=== PATIENT | female | born 1955 | race Caucasian/White ===

== ENCOUNTER 2019-07-28 16:15 | Emergency (ER) | payer OTHER, SELFPAY ==
--- NOTE | 2019-07-28 16:19 | ED.GENADULT ---
HPI - General Adult General Chief complaint: Urogenital-Female Stated complaint: uti Time Seen by Provider: 07/28/19 16:35 Source: patient and RN notes reviewed Mode of arrival: ambulatory Limitations: no limitations History of Present Illness HPI narrative: This patient's had frequency and burning with urination that began 2 days ago. Has not had any back pain but has had some suprapubic discomfort. She has not had any fever. There is been no blood in the urine. She has had a history of cystitis in the past, none recently. She has had no history of kidney stones or pyelonephritis. She is otherwise felt well without any ear pain, no nasal drainage, no sore throat, no fever, no cough. She has had no nausea, no vomiting, no diarrhea. She has otherwise felt well. Related Data Home Medications Medication Instructions Recorded Confirmed atorvastatin 40 mg DAILY 06/29/19 06/29/19 buspirone 13 mg TID 06/29/19 06/29/19 digoxin 125 mcg DAILY 06/29/19 06/29/19 diltiazem HCl 120 mg PO DAILY 06/29/19 06/29/19 insulin glargine [Basaglar KwikPen 80 unit SUBCUT DAILY 06/29/19 06/29/19 U-100 Insulin] insulin lispro [Admelog SoloStar 9 unit SUBCUT TID 06/29/19 06/29/19 U-100 Insulin] lisinopril 5 mg DAILY 06/29/19 06/29/19 metoprolol succinate 12.5 mg PO DAILY 06/29/19 06/29/19 quetiapine 06/29/19 warfarin 2 mg DAILY MDD 2 mg alternate 3 mg 06/29/19 06/29/19 Allergies Allergy/AdvReac Type Severity Reaction Status Date / Time Cephalosporins Allergy Unknown Unknown Verified 06/29/19 17:32 ciprofloxacin Allergy Unknown Unknown Verified 06/29/19 17:32 citalopram Allergy Unknown Unknown Verified 06/29/19 17:32 codeine Allergy Unknown Unknown Verified 06/29/19 17:32 erythromycin base Allergy Unknown Unknown Verified 06/29/19 17:32 levofloxacin Allergy Unknown Unknown Verified 06/29/19 17:32 lidocaine Allergy Unknown Unknown Verified 06/29/19 17:32 Macrolide Antibiotics Allergy Unknown Unknown Verified 06/29/19 17:32 Quinolones Allergy Unknown Unknown Verified 06/29/19 17:32 Sulfa (Sulfonamide Allergy Unknown Unknown Verified 06/29/19 17:32 Antibiotics) theophylline Allergy Unknown Unknown Verified 06/29/19 17:32 ALL ASHLEY DRUGS Allergy Mild ITCHING, Uncoded 06/29/19 17:32 BURNING, SWELLING AT SITE Review of Systems Review of Systems: Narrative: CONSTITUTIONAL: Denies fever, chills, or sweats. Noncontributory except as pertains to the past medical history and history of present illness. EYES: Denies visual changes, redness, or discharge. ENT: Denies rhinorrhea, congestion, sore throat, or otalgia. CARDIOVASCULAR: Denies chest pain, palpitations, or edema. RESPIRATORY: Denies cough or dyspnea. GASTROINTESTINAL: Denies abdominal pain, nausea, vomiting, or diarrhea. GENITOURINARY: Denies dysuria or hematuria. SKIN: Denies rash or itching. MUSCULOSKELETAL: Denies back pain, joint pain, or myalgia. NEUROLOGIC: Denies headache, numbness, or weakness. PSYCHIATRIC: Denies anxiety or depression. [facility] Family History Family History (Updated 12/26/17 @ 07:10 by DOCTOR UNKNOWN) Sibling Family history of respiratory disorder Family history of diabetes mellitus in first degree relative Family history of congestive heart failure Acute myocardial infarction Mother Family history of chronic obstructive pulmonary disease Family history of congestive heart failure Father Acute myocardial infarction Other Family history of arthritis Family history of malignant neoplasm Family history of mental disorder Hypertension Social History Social History Smoking status: Never smoker Alcohol intake: never Gender identity (if verbalized by the patient): Female Comments At time of signature, I have reviewed and agree with nursing past medical, surgical, social, and family history.Please see nursing chart for further information. There is no relevant family history pertinent to
[2019-07-28 16:22] VITALS: BP 150/82; PULSE 72; RESP 16; TEMP 36.3; O2SAT 97
== END 2019-07-28 16:47 | disposition home or self-care (01) ==
PROVIDERS: Emergency Provider Family Medicine; PCP Internal Medicine
DX: N30.00 Acute cystitis without hematuria (principal); I48.91 Unspecified atrial fibrillation; I10 Essential (primary) hypertension; J44.9 Chronic obstructive pulmonary disease, unspecified; G47.30 Sleep apnea, unspecified; M19.90 Unspecified osteoarthritis, unspecified site; E11.9 Type 2 diabetes mellitus without complications; F32.9 Major depressive disorder, single episode, unspecified; F41.9 Anxiety disorder, unspecified
CPT/HCPCS: 81003; 87077; 87086; 87088; 87186; 99213; G0463

== ENCOUNTER → 2020-03-04 10:52 | Outpatient (CLI) | payer OTHER, SELFPAY ==
--- NOTE | ~2020-03-04 | XR_ITS ---
EXAMINATION: XR thoracic spine 3V, XR lumbar spine min 4V DATE: 03/04/2020 12:11 INDICATION: Psoriatic arthritis TECHNIQUE: 1. AP, lateral and lateral swimmers views of the thoracic spine were obtained. 2. AP, lateral, left and right oblique and cone-down lateral lumbosacral views of the lumbar spine we re obtained. COMPARISON: None FINDINGS: Thoracic spine: 10 degree mid to lower thoracic dextroscoliosis. Sagittal alignment is normal. Vertebral body heights are normal. Moderate disc height loss at T7-T8, T8-T9 and T9-T10, mild disc height loss at the remai giovanny levels from T4-T5 through T12-L1. No fracture identified. Paravertebral soft tissues and visuali zed lungs are unremarkable. Cardiomediastinal silhouette is normal. Lumbar spine: 2 mm anterolisthesis L4 on L5. Schmorl's nodes with mild central endplate depression at L2 and L3. Ve rtebral body heights are otherwise normal. Moderate disc height loss at L3-L4 and L5-S1. Mild disc he ight loss at the remaining lumbar levels. No pars interarticularis defects. Multilevel moderate bilat eral lumbar facet osteoarthritis. Mild right and moderate left hip osteoarthritis. Cholecystectomy cl ips in right upper quadrant. Atherosclerotic abdominal aorta. IMPRESSION: 1. Mild thoracic dextroscoliosis. 2. Moderate thoracic and lumbar spondylosis. Reviewed, dictated and finalized at location B. IMPRESSION: 1. Mild thoracic dextroscoliosis. 2. Moderate thoracic and lumbar spondylosis.
--- NOTE | ~2020-03-04 | XR_ITS ---
EXAMINATION: XR shoulder LT min 2V DATE: 03/04/2020 12:11 INDICATION: Psoriatic arthritis. TECHNIQUE: 4 views of left shoulder were obtained. COMPARISON: None. FINDINGS: Bone alignment is normal. No fracture. There is mild osteoarthritis of glenohumeral joint a nd acromioclavicular joint. IMPRESSION: 1. Mild polyarticular osteoarthritis. Reviewed, dictated and finalized at location A.
--- NOTE | ~2020-03-04 | XR_ITS ---
EXAMINATION: XR chest 2V DATE: 03/04/2020 12:23 INDICATION: Psoriatic arthritis. TECHNIQUE: Frontal inspiratory and expiratory views of the chest were obtained. COMPARISON: Chest 2 views 03/04/2020 FINDINGS: The chest demonstrates clear lungs without pneumonia, pleural effusion, or pneumothorax. Th e heart size is normal. IMPRESSION: 1. No acute cardiopulmonary disease. Reviewed, dictated and finalized at location A.
--- NOTE | ~2020-03-04 | XR_ITS ---
EXAMINATION: XR foot LT min 3V, XR foot RT min 3V DATE: 03/04/2020 12:17 INDICATION: Psoriatic arthritis TECHNIQUE: 1. Standing dorsal plantar, two oblique and lateral views of the left foot were obtained. 2. Standing dorsal plantar, two oblique and lateral views of the right foot were obtained. COMPARISON: 12/14/2016 FINDINGS: Pes planus at the bilateral feet. Mild left hallux valgus. Postoperative change of likely prior right hallux valgus correction with screw fixation of a likely realignment osteotomy at the neck of the ri ght first metatarsal. No fracture. Polyarticular osteoarthritis, moderate to severe at the right firs t metatarsophalangeal joint and moderate at the left first metatarsophalangeal joint. Additional mild osteoarthritis at multiple additional joints in the bilateral mid and forefeet. No erosions to sugge st an inflammatory arthritis. Small amount of enthesopathic ossification at the bilateral distal Achi lles tendons. Soft tissues are unremarkable. IMPRESSION: 1. Polyarticular osteoarthritis at the bilateral mid and forefeet most prominent at the bilateral fir st metatarsophalangeal joints. 2. Bilateral pes planus. 3. Postoperative change of right hallux valgus correction. Reviewed, dictated and finalized at location B. IMPRESSION: 1. Polyarticular osteoarthritis at the bilateral mid and forefeet most prominen t at the bilateral first metatarsophalangeal joints. 2. Bilateral pes planus. 3. Postoperative change of right hallux valgus correction.
--- NOTE | ~2020-03-04 | XR_ITS ---
EXAMINATION: XR sacroiliac joints min 3V DATE: 03/04/2020 12:10 INDICATION: Psoriatic arthritis TECHNIQUE: AP and left and right oblique views of the bilateral sacral iliac joints were obtained. COMPARISON: None. FINDINGS: Bone alignment is normal. No fracture. Bilateral sacral iliac joint spaces are normal and symmetric. No erosions or subarticular sclerosis to suggest an inflammatory sacroiliitis. Moderate lower lumbar spondylosis. Bilateral hip osteoarthritis, mild on the right and moderate on the left. IMPRESSION: 1. Normal bilateral sacroiliac joints. 2. Moderate lumbar spondylosis. 3. Mild right and moderate left hip osteoarthritis. Reviewed, dictated and finalized at location B.
--- NOTE | ~2020-03-04 | XR_ITS ---
EXAMINATION: XR knee RT min 4V DATE: 03/04/2020 12:11 INDICATION: Psoriatic arthritis. TECHNIQUE: 4 views of right knee were obtained. COMPARISON: None. FINDINGS: Bone alignment is normal. No fracture. There is mild tricompartmental osteoarthritis. No kn ee joint effusion. IMPRESSION: 1. Mild right knee osteoarthritis. Reviewed, dictated and finalized at location A.
--- NOTE | ~2020-03-04 | XR_ITS ---
EXAMINATION: XR knee LT min 4V DATE: 03/04/2020 12:11 INDICATION: Psoriatic arthritis. TECHNIQUE: 4 views of left knee were obtained. COMPARISON: None. FINDINGS: Bone alignment is normal. No fracture. There is mild tricompartmental osteoarthritis. No kn ee joint effusion. IMPRESSION: 1. Mild left knee osteoarthritis. Reviewed, dictated and finalized at location A.
--- NOTE | ~2020-03-04 | XR_ITS ---
EXAMINATION: XR shoulder RT min 2V DATE: 03/04/2020 12:11 INDICATION: Psoriatic arthritis. TECHNIQUE: 4 views of right shoulder were obtained. COMPARISON: None. FINDINGS: Bone alignment is normal. No fracture. There is mild osteoarthritis of glenohumeral joint a nd moderate osteoarthritis of acromioclavicular joint. There is calcific tendinitis of the rotator cu ff. IMPRESSION: 1. Polyarticular osteoarthritis. 2. Calcific tendinitis of the rotator cuff. Reviewed, dictated and finalized at location A.
--- NOTE | ~2020-03-04 | XR_ITS ---
EXAMINATION: XR hand LT min 3V, XR hand RT min 3V DATE: 03/04/2020 12:17 INDICATION: Psoriatic arthritis TECHNIQUE: 1. Posteroanterior, oblique and lateral views of the left hand were obtained. 2. Posteroanterior, oblique and lateral views of the right hand were obtained. COMPARISON: Left hand radiographs dated 12/14/2016 FINDINGS: Normal alignment at the bilateral hands. No fracture. Mild osteoarthritis at the right first interpha langeal joint. Contrast by mild nonuniform joint space narrowing and small marginal osteophytes. Mini mal osteoarthritis with tiny marginal osteophytes and relatively preserved joint space at the left fi rst interphalangeal and multiple bilateral distal interphalangeal joints. No erosions to suggest an i nflammatory arthritis. IMPRESSION: 1. Relatively symmetric minimal to mild polyarticular osteoarthritis at the first interphalangeal and several distal interphalangeal joints. Reviewed, dictated and finalized at location B. IMPRESSION: 1. Relatively symmetric minimal to mild polyarticular osteoarthritis at the fir st interphalangeal and several distal interphalangeal joints.
== END ==
PROVIDERS: PCP Internal Medicine
DX: L40.50 Arthropathic psoriasis, unspecified (principal); M41.84 Other forms of scoliosis, thoracic region; M47.814 Spondylosis without myelopathy or radiculopathy, thoracic region; M47.816 Spondylosis without myelopathy or radiculopathy, lumbar region; M65.811 Other synovitis and tenosynovitis, right shoulder; M21.42 Flat foot [pes planus] (acquired), left foot; M21.41 Flat foot [pes planus] (acquired), right foot; Z98.890 Other specified postprocedural states; M89.49 Other hypertrophic osteoarthropathy, multiple sites
CPT/HCPCS: 71046; 72072; 72110; 72202; 73030; 73130; 73564; 73630

== ENCOUNTER → 2020-07-14 11:08 | Outpatient (CLI) | payer OTHER, SELFPAY ==
--- NOTE | ~2020-07-14 | XR_ITS ---
EXAMINATION: XR chest 2V DATE: 07/14/2020 11:26 INDICATION: Shortness of breath TECHNIQUE: PA and lateral views of the chest are obtained. COMPARISON: 03/04/2020 FINDINGS: The lungs are free of acute opacities. There is no pleural effusion or pneumothorax. The ca rdiomediastinal silhouette is normal. There is mild thoracic spondylosis. IMPRESSION: 1. No acute cardiopulmonary abnormality. Reviewed, dictated and finalized at location A. ICE UPHOLSTERER
== END ==
PROVIDERS: PCP Internal Medicine Cardiovascular Disease; Visit Provider Internal Medicine Cardiovascular Disease
DX: R06.09 Other forms of dyspnea (principal)
CPT/HCPCS: 71046

== ENCOUNTER 2020-11-23 09:34 | Outpatient (CLI) | payer OTHER, SELFPAY ==
--- NOTE | ~2020-11-23 | CT_ITS ---
EXAMINATION: CT diagnostic chest w con DATE: 11/23/2020 10:27 INDICATION: Shortness of breath, history of COVID pneumonia TECHNIQUE: Transaxial computed tomographic images of the chest were obtained after the administration of 75 cc of Omnipaque 350 intravenous contrast. The dose-length product (DLP) was 604.14 mGy-cm. Ite rative reconstruction was used. COMPARISON: 06/26/2018 FINDINGS: There is mild elevation of the right hemidiaphragm. The lungs are free of focal airspace op acities. There is mild dependent atelectasis. No pleural effusion or pneumothorax is identified. No p athologically enlarged thoracic lymph nodes are identified. The heart size is normal. Again noted is ectasia of the ascending aorta which measures up to 1.1 cm. Calcified pulmonary nodules and calcified left hilar lymph nodes are consistent with old granulomatous disease. The gallbladder is surgically absent. There is moderate thoracic spondylosis. IMPRESSION: 1. Mild atelectasis. Reviewed, dictated and finalized at location A. IMPRESSION: 1. Mild atelectasis.
[2020-11-23 10:21] LABS: Estimated Glomerular Filt Rate 56
== END 2020-11-23 09:35 | disposition home or self-care (01) ==
PROVIDERS: PCP Internal Medicine; Visit Provider Internal Medicine
DX: U07.1 COVID-19 (principal); I71.2 Thoracic aortic aneurysm, without rupture
CPT/HCPCS: 71260; Q9967

== ENCOUNTER 2021-02-16 13:30 | Outpatient (RCR) | payer OTHER, SELFPAY ==
--- NOTE | 2021-01-13 14:38 | PTOPEVAL ---
PHYSICAL THERAPY EVALUATION Thank you for referring Carol Gee to [facility].? Carol was evaluated for the dx of chronic low back and multiple joint pain. The patient is scheduled to be seen for therapy? 1 x/week for 4 weeks. Please review, sign, date and return this plan of care KYAA. I agree with and certify that the following plan of care is medically necessary. Referring Physician Date Referring Provider: Dr. Stephy Fitzpatrick *PT Outpatient Evaluation Start: 01/13/21 13:09 Freq: Status: Active Protocol: Document 01/13/21 13:10 MLV (Rec: 01/13/21 14:19 [facility] [id number]) Therapy Assessment Status Assessment Status Assessment Status Evaluation Evaluation Information Problem Diagnosis chronic low back pain with angelica . hip and shoulder pain Onset increased pain in last 2 years Cause no injury Additional Evaluation Detail The patient reports she has a long hx of pain all over and could manage with ibuprofen. Pt then developed a-fib and is unable to take ibuprofen now. The patient cannot get relief with tylenol. The patient reports needing to exercise but is fearful that she will cause a heart failure . The patient has not done therapy before, had only tried chiropractor w/o success for relief. The patient sleeps 14- 15 hrs a day due to fatigue. The patient wants to get some exercises so to move better and feel more alert. Subjective Information The patient has a hospital bed Query Text:As Reported By Patient/ and a motorized scooter for Family when she shops/outings. Diagnostic Tests MRI For This Problem Yes: spondylosis, thoracic dextroscoliosis Prior Level of Function Activity Level (Last 3 Months) Occupation on disability since 2003 Hand Dominance Right Activity of Daily Living Ability Independent Indoor/Home Mobility Independent Community Mobility Independent Stairs Ability Independent Functional Cognition (Planning, Shopping Independent , Taking Medications) Cooking No Cleaning No Laundry Yes Shopping Yes Driving
--- NOTE | 2021-02-03 13:53 | PCPTNOTE ---
Patient called & cancelled scheduled appointment this date due to being to sore.
--- NOTE | 2021-02-16 14:16 | PTOPEVAL ---
PHYSICAL THERAPY DISCHARGE Thank you for referring Carol Gee to [facility].? The patient has completed 3 visits for the dx of low back, angelica hips and shoulder pain. Goals not being met with limited compliance for attendance. DC PT. Please review, sign, date and return this plan of care KAYA. I agree with and certify the following plan of care. Referring Physician Date Referring Provider: Dr. Radha Fitzpatrick *PT Outpatient Evaluation Start: 01/13/21 13:09 Freq: Status: Active Protocol: Document 02/16/21 13:34 MLV (Rec: 02/16/21 14:06 MLV [id number]) Therapy Assessment Status Assessment Status Assessment Status Discharge Evaluation Information Problem Diagnosis chronic low back pain with angelica. hip and shoulder pain Onset increased pain in last 2 years Cause no injury Additional Evaluation Detail The patient reports her pain remains high and was in severe pain after her last visit with therapy. The patient reports doing ok when she completed the exercises but was in severe pain for days after. The patient believes there is nothing that will help her pain, and feels her severity of her psoriasis is the reason for this. Pain Assessment Timing of Pain Assessment Timing of Pain Assessment Assessment Pain Scale Pain Scale Used Numeric (1 - 10) Self Report Pain Assessment Generalized Reported Pain Level 6 Pain Description Aching,Soreness,Tightness Pain Frequency Chronic,Continuous Back Reported Pain Level 7 Pain Frequency Chronic,Continuous Pain Aggravating Factors Weight Bearing/Standing Other Pain Aggravating Factors doing dishes, vacuuming, lifting Pain Score Pain Score 6,7: Self Report Interventions Used Interventions Used By Clinicians Education,Exercise Pain Relief Interventions Used By Inactivity/Rest,Lying Supine Patient Cervical and Lumbar ROM Cervical ROM Cervical Flexion (0-60) 62 Query Text:Active in Degrees Cervical Extension (0-70) 20 Query Text:Active in Degrees Cervical Lateral Flexion Right (0-50) 35 Query Text:Active in Degrees Cervical Lateral Flexion Left (0-50) 35 Query Text:Active in Degrees Cervical Rotation Right (0-90) 51 Query Text:Active in Degrees Cervical Rotation Left (0-90)
== END 2021-03-31 08:54 | disposition home or self-care (01) ==
LOC: ANHPT 13:30
PROVIDERS: PCP Internal Medicine
DX: M54.5 Low back pain (principal)
CPT/HCPCS: 97110; 97162

== ENCOUNTER 2021-05-22 16:36 | Emergency (ER) | payer OTHER, SELFPAY ==
[2021-05-22 16:45] VITALS: BP 153/86; PULSE 78; RESP 18; TEMP 36.5; O2SAT 92
--- NOTE | 2021-05-22 17:03 | ED.BACK ---
HPI - Back Pain/Injury General Chief Complaint: Back Pain/Injury Stated Complaint: Back Pain Time Seen by Provider: 05/22/21 17:03 Source: patient and RN notes reviewed Mode of arrival: ambulatory Limitations: no limitations History of Present Illness HPI Narrative: 65-year-old female presents to the [facility] with complaints of right lower back pain. Had been going on for a couple of weeks. Got worse couple days ago. States she has been taking Tylenol and tramadol with no relief. Related Data Home Medications Medication Instructions Recorded Confirmed diltiazem HCl 120 mg PO DAILY 06/29/19 05/22/21 lisinopril 5 mg PO DAILY 06/29/19 05/22/21 warfarin 2 mg DAILY MDD 2 mg alternate 3 mg 06/29/19 05/22/21 metoprolol succinate 25 mg 25 mg PO DAILY tablet 01/25/21 05/22/21 tablet,extended release 24 hr secukinumab 150 mg/mL subcutaneous 150 mg SUBCUT MONTHLY ml 01/25/21 05/22/21 pen injector quetiapine 100 mg tablet 150 mg PO DAILY tablet 04/17/21 05/22/21 levothyroxine [Euthyrox] 150 mcg PO DAILY 05/22/21 05/22/21 Allergies Allergy/AdvReac Type Severity Reaction Status Date / Time Cephalosporins Allergy Unknown Hives Verified 05/22/21 16:53 ciprofloxacin Allergy Unknown Hives Verified 05/22/21 16:53 citalopram Allergy Unknown Hives Verified 05/22/21 16:53 codeine Allergy Unknown Hives Verified 05/22/21 16:53 erythromycin base Allergy Unknown Hives Verified 05/22/21 16:53 levofloxacin Allergy Unknown Hives Verified 05/22/21 16:53 lidocaine Allergy Unknown Hives Verified 05/22/21 16:53 Macrolide Antibiotics Allergy Unknown Hives Verified 05/22/21 16:53 Quinolones Allergy Unknown Hives Verified 05/22/21 16:53 Sulfa (Sulfonamide Allergy Unknown Hives Verified 05/22/21 16:53 Antibiotics) theophylline Allergy Unknown Hives Verified 05/22/21 16:53 ALL ASHLEY DRUGS Allergy Mild ITCHING, Uncoded 05/22/21 16:53 BURNING, SWELLING AT SITE Review of Systems Review of Systems: All systems reviewed & are unremarkable except as noted in HPI and below Constitutional: Constitutional: Reports no additional constitutional complaints, Denies chills and Denies fever(s) Eyes: Eyes: Reports no additional eye complaints ENT: Reports system reviewed and no additional complaints, except as documented Cardiovascular: Cardiovascular: Reports no additional cardiovascular complaints Respiratory: Respiratory: Reports no additional respiratory complaints Gastrointestinal: Gastrointestinal: Reports no additional gastrointestinal complaints, Denies abdominal pain, Denies nausea and Denies vomiting Genitourinary: Genitourinary: Reports no additional female genitourinary complaints and Denies urinary incontinence Musculoskeletal: Musculoskeletal: Reports as per HPI and Reports back pain (Right lower) Integumentary/Breasts: Skin/Breast: Reports system reviewed and no additional complaints, except as docu Neurologic: Reports system reviewed and no additional complaints, except as documented Psychiatric: Psychiatric: Reports no additional psychiatric complaints Allergic/Immunologic: Allergic/Immunologic: Reports no additional allergic/immunologic complaints PMFSH Past Medical History Medical History Acute conjunctivitis of left eye COVID-19 Essential (primary) hypertension Restrictive ventilatory defect Type 2 diabetes mellitus without complication, without long-term current use of insulin Family History Family History Sibling Family history of respiratory disorder Family history of diabetes mellitus in first degree relative Family history of congestive heart failure Acute myocardial infarction Mother Family history of chronic obstructive pulmonary disease Family history of congestive heart failure Father Acute myocardial infarction Other Family history of arthritis Family hist
== END 2021-05-22 17:17 | disposition home or self-care (01) ==
PROVIDERS: Emergency Provider Nurse Practitioner; PCP Internal Medicine
DX: M54.41 Lumbago with sciatica, right side (principal); I10 Essential (primary) hypertension; E11.9 Type 2 diabetes mellitus without complications; Z79.4 Long term (current) use of insulin; Z86.16 Personal history of COVID-19; Z79.01 Long term (current) use of anticoagulants
CPT/HCPCS: 99213; G0463

== ENCOUNTER 2021-06-21 14:30 | Outpatient (CLI) | payer OTHER, SELFPAY ==
--- NOTE | ~2021-06-21 | DEXA_ITS ---
Bone Density Report Name: OBDULIA RIVAS Age: 65 Sex: Female Ethnicity: White Date of : 1955 Indication: postmenopausal; hysterectomy; Referring Provider: KULWINDER BENSON Study: Bone densitometry was performed. Exam Date: June 21, 2021 Accession number: [id number] Bone Density: Region BMD T-score Z-score Classification AP Spine (L1, L3, L4) 1.155 0.9 2.7 Normal Femoral Neck (Left) 0.744 -0.9 0.5 Normal Total Hip (Left) 0.867 -0.6 0.6 Normal Total Hip Bilateral Avg 0.829 -0.9 0.3 Normal Femoral Neck (Right) 0.541 -2.8 -1.3 Osteoporosis Total Hip (Right) 0.790 -1.2 0.0 Osteopenia World Health Organization criteria for BMD impression classify patients as: Normal (T-score at or above -1.0), Osteopenia (T-score between -1.0 and -2.5), or Osteoporosis (T-score at or below -2.5). 10-year Fracture Risk: FRAX not reported because: Some T-score for Spine Total or Hip Total or Femoral Neck at or below -2.5 Clinical Information Provided by Patient: Has used the following medications: Vitamin D Has the following medical conditions: Hysterectomy Patient maximum height was 68 Menopause Age: 41 No regular weight bearing exercise Drinks caffeinated beverages Onset of menses at age 11 Number of children 3 Impression: The patient has osteoporosis, based on the Right Femoral Neck T-score. Discussion: INCREASED RISK OF FRACTURE. BONE DENSITY IS UNDESIRABLY LOW AT ONE OR MORE SKELETAL SITES, CONSISTENT WITH POSTMENOPAUSAL OSTEOPOROSIS. This patient's lowest T-score meets the World Health Organization's (WHO) criteria for osteoporosis at one or more sites (T-score -2.5 or below). In untreated patients, the risk of osteoporotic fracture increases approximately two-fold for each 1.0 SD decrease in T-score. Low bone density is not the only risk factor for fracture; also consider factors such as patient's age, frailty or poor health, risk of falling, risk of injury, previous osteoporotic fracture, family history of osteoporosis, cigarette smoking, low body weight, etc. Not everyone with low bone mineral density has osteoporosis; osteomalacia and other metabolic bone disorders should also be considered. Patients who have osteoporosis should be evaluated for specific diseases and conditions (secondary causes) that may cause or contribute to bone loss. The [place] [employer]ocrinologists (AACE) and National Osteoporosis Foundation (NOF) recommend pharmacologic intervention for all postmenopausal women whose T-score is in this range. The patient should follow a healthful lifestyle (good nutrition with adequate calcium and vitamin D, and appropriate weight-bearing exercise). Follow-Up: Consider a repeat BMD and Vertebral Fracture Assessment (VFA) exam in 2 years or sooner if medically necessary, to reassess this
== END 2021-06-21 14:31 | disposition home or self-care (01) ==
LOC: ANHIMG 14:31
PROVIDERS: PCP Internal Medicine; Visit Provider Nurse Practitioner
DX: Z78.0 Asymptomatic menopausal state (principal); M81.0 Age-related osteoporosis without current pathological fracture; M85.851 Other specified disorders of bone density and structure, right thigh
CPT/HCPCS: 77080

== ENCOUNTER 2021-07-10 12:28 | Outpatient (RCR) | payer OTHER, SELFPAY ==
--- NOTE | 2021-07-10 13:34 | REHOPWC ---
SEATING EVALUATION NOTIFICATION This is to notify provider that Carol Gee participated in a power mobility device evaluation today. Recommendations were made specific to patient's needs. Seating Assessment documentation has been completed for detailed information on required equipment. The mobility device provider for this case is [facility]. Please note that no further care plan will be developed on this account. Thank you for [facility] this [facility]. Please review, sign, date and return this discharge summary KAYA. I have been updated about the patient's current status and I agree with discharge from the above service at this time. Referring Physician Date
== END 2021-07-11 11:30 | disposition home or self-care (01) ==
LOC: ANHPT 12:28
PROVIDERS: PCP Internal Medicine; Visit Provider Nurse Practitioner
DX: I48.20 Chronic atrial fibrillation, unspecified (principal); E11.9 Type 2 diabetes mellitus without complications; M48.061 Spinal stenosis, lumbar region without neurogenic claudication; R26.9 Unspecified abnormalities of gait and mobility; L40.50 Arthropathic psoriasis, unspecified; Z79.4 Long term (current) use of insulin; Z78.9 Other specified health status; Z74.09 Other reduced mobility
CPT/HCPCS: 97163

== ENCOUNTER 2021-07-13 14:20 | Outpatient (CLI) | payer OTHER, SELFPAY ==
[2021-07-13 14:30] VITALS: PULSE 88; O2SAT 92
[2021-07-13 14:33] VITALS: PULSE 130; O2SAT 87
[2021-07-13 14:34] VITALS: O2SAT 87
[2021-07-13 14:35] VITALS: PULSE 126; O2SAT 90
[2021-07-13 14:45] VITALS: PULSE 92; O2SAT 92
--- NOTE | 2021-07-13 14:57 | HOMEO2EVAL ---
Evaluation was performed at [facility] Home Oxygen Evaluation RC: Home Oxygen (O2) Evaluation Start: 07/13/21 14:55 Freq: Status: Active Protocol: RPE Activity Type Activity Date Activity User E-Sign Co-Sign Detail Recorded Client Recorded Date Recorded By Document 07/13/21 14:30 BRUCE [email or web address] 07/13/21 14:57 BRUCE Document 07/13/21 14:33 BRUCE [email or web address] 07/13/21 14:57 BRUCE Document 07/13/21 14:34 BRUCE [email or web address] 07/13/21 14:57 BRUCE Document 07/13/21 14:35 BRUCE [email or web address] 07/13/21 14:57 BRUCE Document 07/13/21 14:45 BRUCE [email or web address] 07/13/21 14:57 BRUCE 07/13/21 07/13/21 07/13/21 14:30 14:33 14:34 Home O2 Evaluation Test Phase Resting Exercise Exercise Oxygen Delivery Room Air Room Air Nasal Cannula Oxygen Flow Rate (L/min) 1 Pulse Oximetry (90-100 %) 92 87 L 87 L Pulse Rate (60-100 beats/min) 88 130 H Home Oxygen Evaluation Comments Treatment Charges O2 Evaluation - Outpatient 07/13/21 07/13/21 14:35 14:45 Home O2 Evaluation Test Phase Exercise Resting Oxygen Delivery Nasal Cannula Room Air Oxygen Flow Rate (L/min) 2 Pulse Oximetry (90-100 %) 90 92 Pulse Rate (60-100 beats/min) 126 H 92 Home Oxygen Evaluation Comments Pt requires 2 L with activity Treatment Charges
--- NOTE | 2021-07-13 14:58 | PCRCNOTE ---
Home O2 eval completed in place of 6 minute walk study. Pt requires 2 L with exertion/activity. Faxed to Office staff
--- NOTE | 2021-07-13 14:59 | PCRCNOTE ---
Pt also declined ABG.
--- NOTE | 2021-07-13 17:08 | WPDPFTINT ---
PFT Procedure Performed PFT Procedure Performed Spirometry with Pre/Post Bronchodilator Plethysmography (Lung Vol) Diffusing Cap (DLCO) Flow Vol Loop PFT Interpretation This is a pulmonary function test with pre and post-bronchodilator spirometry, plethysmography and diffusing capacity. The test was performed and results interpreted in accordance with the 2019 and 2005 ATS/ERS Task Force guidelines respectively using the Global Lung Function Initiative-2012 reference equations. Patient demonstrated good effort and cooperation. Reproducibility criteria were met. The quality of the pre bronchodilator spirometry maneuver was Grade A and post bronchodilator spirometry maneuver was Grade A. Findings: Spirometry: The contour the expiratory flow tracing resembles that of a witch's hat. The contour the inspiratory flow tracing is normal. The pre bronchodilator FVC is 1.57 L, 45% predicted. The pre bronchodilator FEV1 is 1.42 L, 52% predicted. The pre bronchodilator FEV1: FVC ratio is 91%. The post bronchodilator FVC is 1.85 L, representing an 18% increase. The post bronchodilator FEV1 is 1.59 L, representing a 12% increase. Plethysmography: The total lung capacity is 3.51 L, 62% predicted. Functional residual capacity is 1.42 L, 44% predicted. The residual volume is 1.39 L, 61% predicted. Diffusion capacity: The absolute diffusion capacity is 16.5, 72% predicted. The diffusing capacity corrected for alveolar volume is 5.03, 120% predicted. Impression: There is a moderately severe restrictive ventilatory abnormality. The spirometry is normal without evidence of an obstructive abnormality. There is significant improvement after inhaling a single dose of albuterol. The diffusing capacity is normal. There are no prior studies for comparison
== END 2021-07-13 14:21 | disposition home or self-care (01) ==
LOC: ANHPFT 14:23
PROVIDERS: PCP Internal Medicine; Visit Provider Physician Assistant
DX: R06.02 Shortness of breath (principal); R94.2 Abnormal results of pulmonary function studies
CPT/HCPCS: 94060; 94618; 94726; 94729

== ENCOUNTER 2021-07-31 14:49 | Outpatient (CLI) | payer OTHER, SELFPAY ==
--- NOTE | ~2021-07-31 | MM_ITS ---
EXAMINATION: MM screening [facility] BI w julian HISTORY: Screening TECHNIQUE: Craniocaudal and mediolateral oblique 3-D tomosynthesis images were obtained and synthetic 2-D images were generated. CAD analysis was submitted and interpreted. COMPARISON: Comparison to multiple prior studies sequentially, with oldest reviewed study dated 08/2013. BREAST PARENCHYMAL COMPOSITION: There are scattered areas of fibroglandular density. FINDINGS: There are benign bilateral breast calcifications. There is no evidence of suspicious mass, calcification, or architectural distortion to suggest malignancy in either breast. There has been no suspicious interval change. IMPRESSION: 1. No mammographic evidence of malignancy. 2. Recommend routine screening mammography in one year. BI-RADS Category 2: Benign finding(s). Reviewed, dictated and finalized at location A. 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
== END 2021-07-31 14:50 | disposition home or self-care (01) ==
LOC: ANHIMG 14:50
PROVIDERS: PCP Internal Medicine; Visit Provider Nurse Practitioner
DX: Z12.31 Encounter for screening mammogram for malignant neoplasm of breast (principal)
CPT/HCPCS: 77063; 77067

== ENCOUNTER 2021-12-06 14:37 | Outpatient (CLI) | payer MEDICARE, MEDICAID, SELFPAY ==
--- NOTE | ~2021-12-06 | CT_ITS ---
EXAMINATION: CTA chest DATE: 12/07/2021 08:06 CDT INDICATION: Shortness of breath. COPD. TECHNIQUE: Computed tomographic angiography (CTA) of the chest was performed with 100 mL Omnipaque-30 0 intravenous contrast. The dose-length product was 961.21 mGy-cm. Maximum intensity projection 3D-re constructions of the aorta and other arteries were constructed by the technologist on a separate work station. Automated exposure control and iterative reconstruction technique were employed. COMPARISON: CT dated 11/23/2020. FINDINGS: There is mediastinal and hilar lymphadenopathy. For instance a low right paratracheal lymph node measures 1.7 cm. Heart size is normal. There is mild atherosclerosis of the aorta and coronary arteries. There is mild aneurysmal dilation of the ascending thoracic aorta measuring 4 cm. No eviden ce for dissection. Evaluation of the pulmonary arteries limited due to contrast bolus timing. The upp er abdomen is unremarkable. There is diffuse groundglass opacification with peripheral interlobular s eptal thickening. There is dependent atelectasis. No endobronchial lesions. Shallow inspiration with crowding of the pulmonary vasculature. There are calcified pulmonary nodules and hilar lymph nodes, c onsistent with chronic granulomatous disease. Moderate thoracic spondylosis. IMPRESSION: 1. Stable fusiform ascending thoracic aortic aneurysm measuring 4 cm. 2: Mediastinal and hilar lymphadenopathy, most likely reactive, although metastatic disease and lymph rosibel should be considered. 3: Diffuse groundglass opacification which may reflect atelectasis, pneumonia and/or edema. Reviewed, dictated and finalized at location B. IMPRESSION: 1. Stable fusiform ascending thoracic aortic aneurysm measuring 4 cm. 2: Mediastinal and hilar lymphadenopathy, most likely reactive, although metast atic disease and lymphoma should be considered. 3: Diffuse groundglass opacification which may reflect atelectasis, pneumonia a nd/or edema.
[2021-12-06 15:26] LABS: Estimated Glomerular Filt Rate 56
== END 2021-12-06 14:38 | disposition home or self-care (01) ==
PROVIDERS: Visit Provider Internal Medicine Cardiovascular Disease
DX: I71.9 Aortic aneurysm of unspecified site, without rupture (principal); M47.814 Spondylosis without myelopathy or radiculopathy, thoracic region
CPT/HCPCS: 71275; Q9967

== ENCOUNTER 2022-02-12 12:41 | Outpatient (CLI) | payer MEDICARE, MEDICAID, SELFPAY ==
--- NOTE | ~2022-02-12 | XR_ITS ---
XR knee LT 3V 02/12/2022 14:19 INDICATION: Left knee pain for one month PROCEDURE: 3 views left knee COMPARISON: No prior studies for comparison. FINDINGS: Fracture, dislocation or subluxation is not identified. No joint effusion. The soft tissues appear within normal limits. No foreign bodies are identified. IMPRESSION: 1: No significant bone or joint abnormality. Reviewed, dictated and finalized at location B.
== END 2022-02-12 12:42 | disposition home or self-care (01) ==
LOC: ANHIMG 12:44
PROVIDERS: PCP Internal Medicine; Visit Provider Internal Medicine
DX: M25.569 Pain in unspecified knee (principal)
CPT/HCPCS: 73562

== ENCOUNTER 2022-02-12 12:41 | Outpatient (CLI) | payer MEDICARE, MEDICAID, SELFPAY ==
[2022-02-12 13:00] VITALS: PULSE 79; O2SAT 86
[2022-02-12 13:05] VITALS: PULSE 82; O2SAT 87
[2022-02-12 13:10] VITALS: PULSE 93; O2SAT 90
[2022-02-12 13:15] VITALS: PULSE 102; O2SAT 87
[2022-02-12 13:20] VITALS: PULSE 106; O2SAT 90
[2022-02-12 13:35] VITALS: PULSE 99; O2SAT 90
--- NOTE | 2022-02-12 13:56 | HOMEO2EVAL ---
Evaluation was performed at [facility] Home Oxygen Evaluation RC: Home Oxygen (O2) Evaluation Start: 02/12/22 13:47 Freq: Status: Active Protocol: RPE Activity Type Activity Date Activity User E-sign Co-sign Detail Recorded Client Recorded Date Recorded By Document 02/12/22 13:00 PKH [email or web address] 02/12/22 13:54 PKH Document 02/12/22 13:05 PKH [email or web address] 02/12/22 13:54 PKH Document 02/12/22 13:10 PK RT_003 02/12/22 13:54 PK Document 02/12/22 13:15 PK [email or web address]_003 02/12/22 13:54 PK Document 02/12/22 13:20 PK [email or web address]_003 02/12/22 13:54 PK Document 02/12/22 13:35 PK RT_003 02/12/22 13:54 PKH 02/12/22 02/12/22 02/12/22 13:00 13:05 13:10 Home O2 Evaluation Test Phase Resting Resting Resting Oxygen Delivery Room Air Nasal Cannula Nasal Cannula Oxygen Flow Rate (L/min) 1 2 Pulse Oximetry (90-100 %) 86 L 87 L 90 Pulse Rate (60-100 beats/min) 79 82 93 Home Oxygen Evaluation Comments Treatment Charges O2 Evaluation - Outpatient 02/12/22 02/12/22 02/12/22 13:15 13:20 13:35 Home O2 Evaluation Test Phase Exercise Exercise Resting Oxygen Delivery Nasal Cannula Nasal Cannula Nasal Cannula Oxygen Flow Rate (L/min) 2 3 2 Pulse Oximetry (90-100 %) 87 L 90 90 Pulse Rate (60-100 beats/min) 102 H 106 H 99 Home Oxygen Evaluation Comments PATIENT REQUIRES 2LPM WITH REST AND 3LPM WITH ACTIVITY Treatment Charges
== END 2022-02-12 12:42 | disposition home or self-care (01) ==
PROVIDERS: PCP Internal Medicine; Visit Provider Physician Assistant
DX: R09.02 Hypoxemia (principal)
CPT/HCPCS: 73562; 94618

== ENCOUNTER 2023-03-29 12:31 | Outpatient (CLI) | payer MEDICARE, MEDICAID, SELFPAY ==
[2023-03-29 13:00] VITALS: PULSE 89; O2SAT 94
[2023-03-29 13:02] VITALS: PULSE 110; O2SAT 87
[2023-03-29 13:03] VITALS: O2SAT 93
[2023-03-29 13:15] VITALS: PULSE 93; O2SAT 93
--- NOTE | 2023-03-29 13:22 | HOMEO2EVAL ---
Evaluation was performed at [facility] Home Oxygen Evaluation RC: Home Oxygen (O2) Evaluation Start: 03/29/23 13:20 Freq: Status: Active Protocol: RPE Activity Type Activity Date Activity User E-sign Co-sign Detail Recorded Client Recorded Date Recorded By Document 03/29/23 13:00 BRUCE [email or web address] 03/29/23 13:22 BRUCE Document 03/29/23 13:02 BRUCE [email or web address] 03/29/23 13:22 [facility] Document 03/29/23 13:03 [facility] [email or web address] 03/29/23 13:22 [facility] Document 03/29/23 13:15 [facility] [email or web address] 03/29/23 13:22 [facility] 03/29/23 03/29/23 03/29/23 13:00 13:02 13:03 Home O2 Evaluation [Oxygen] -Test Phase Resting Exercise Exercise -Oxygen Delivery Room Air Room Air Nasal Cannula -Oxygen Flow Rate (L/min) 2 [Pulse Oximetry] -Pulse Oximetry (90-100 %) 94 87 L 93 [Pulse Rate] -Pulse Rate (60-100 beats/min) 89 110 H [Exercise] -Ambulation Distance (feet) 350 -Ambulation Distance (meters) 106.67 [Charges] -Treatment Charges O2 Evaluation - Outpatient 03/29/23 13:15 Home O2 Evaluation [Oxygen] -Test Phase Resting -Oxygen Delivery Room Air -Oxygen Flow Rate (L/min) [Pulse Oximetry] -Pulse Oximetry (90-100 %) 93 [Pulse Rate] -Pulse Rate (60-100 beats/min) 93 [Exercise] -Ambulation Distance (feet) -Ambulation Distance (meters) [Charges] -Treatment Charges
--- NOTE | 2023-03-29 13:22 | PCRCNOTE ---
home o2 eval faxed to office staff, no changes from current settings. 2 l with activity and nocturnally
== END 2023-03-29 12:32 | disposition home or self-care (01) ==
LOC: ANHPFT 12:32
PROVIDERS: PCP Nurse Practitioner Family; Visit Provider Physician Assistant
DX: R09.02 Hypoxemia (principal)
CPT/HCPCS: 94618

== ENCOUNTER 2023-05-18 12:03 | Inpatient (IN) | payer MEDICARE, MEDICAID, SELFPAY ==
--- NOTE | ~2023-05-18 | CT_ITS ---
EXAMINATION: CT abdomen pelvis w con DATE: 05/18/2023 14:08 INDICATION: lower abd pain TECHNIQUE: Computed tomography (CT) of the abdomen and pelvis was performed with 100 mL Omnipaque-350 intravenous contrast. Automated exposure control and iterative reconstruction technique were employe d. The dose-length product was 1458.94 mGy-cm. COMPARISON: None. FINDINGS: Lower thorax: Senescent change. Bibasilar atelectasis. Coronary artery calcification. Liver: Normal. Biliary/Gallbladder: Gallbladder is absent. No bile duct dilation. Pancreas: No mass or duct dilation. Spleen: Normal. 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 Kidneys: Bilateral cortical thinning. Symmetric parenchymal enhancement. Nonobstructing left inferior pole calcification. Urothelial enhancement in the left collecting system. GI tract: Mild distal esophageal and gastric wall edema. The rectum is markedly dilated, up to 11.2 c m by formed stool, with mild surrounding wall thickening/inflammation. No small bowel dilation. Deanna l appendix. Mesentery/Peritoneum: No ascites, mass, or free air. Retroperitoneum: No mass. Pelvis: Marked urinary bladder wall edema. Absent uterus. Soft Tissues: Soft tissues and body wall unremarkable. Bones: No acute osseous finding. IMPRESSION: Severe cystitis with left pyelitis. Severe fecal impaction with findings that could occur with early stercoral colitis. Reviewed, dictated and finalized at location K. 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 Severe fecal impaction with findings that could occur with early stercoral coli tis.
[2023-05-18 12:04] VITALS: BP 102/70; PULSE 73; RESP 18; TEMP 36.1; O2SAT 98
--- NOTE | 2023-05-18 12:16 | ED.FEMALEGU ---
HPI - Female Genitourinary General Chief complaint: Urogenital-Female Stated complaint: UTI Time Seen by Provider: 05/18/23 12:15 Source: patient History of Present Illness HPI Narrative: Patient is 67 years old white female lives alone in from home by private car with her daughter complaining of heavy pressure feeling in the lower abdomen and vaginal area started 2 weeks ago, patient has been on 2 rounds of antibiotics for urinary tract infection, Macrobid amoxicillin without any improvement. Patient denies any fever chills nausea vomiting diarrhea constipation bending urination frequency vaginal bleeding or discharge. History of diabetes hypertension hyperlipidemia sleep apnea on BiPAP atrial fibrillation on Eliquis cholecystectomy hysterectomy and abdominal hernia repair Related Data Home Medications Medication Instructions Recorded Confirmed diltiazem HCl 120 mg capsule,24 120 mg PO DAILY 06/29/19 04/23/23 hr,extended release metoprolol succinate 25 mg 25 mg PO DAILY 01/25/21 04/23/23 tablet,extended release 24 hr aspirin 81 mg tablet,delayed 81 mg PO DAILY 08/20/22 04/23/23 release cholecalciferol (vitamin D3) 10 2,000 unit PO DAILY 12/17/22 04/23/23 mcg (400 unit) capsule risperidone 0.5 mg tablet 1 mg PO BID 12/17/22 04/23/23 trazodone 50 mg tablet 100 mg PO DAILY 12/17/22 04/23/23 apixaban 5 mg tablet (Eliquis) 5 mg PO BID 04/23/23 04/23/23 evolocumab 140 mg/mL subcutaneous 140 mg subcut ONCE 04/23/23 04/23/23 pen injector (Jennifer Curran) Allergies Allergy/AdvReac Type Severity Reaction Status Date / Time Cephalosporins Allergy Unknown Hives Verified 05/18/23 12:17 ciprofloxacin Allergy Unknown Hives Verified 05/18/23 12:17 citalopram Allergy Unknown Hives Verified 05/18/23 12:17 codeine Allergy Unknown Hives Verified 05/18/23 12:17 erythromycin base Allergy Unknown Hives Verified 05/18/23 12:17 levofloxacin Allergy Unknown Hives Verified 05/18/23 12:17 lidocaine Allergy Unknown Hives Verified 05/18/23 12:17 Macrolide Antibiotics Allergy Unknown Hives Verified 05/18/23 12:17 Quinolones Allergy Unknown Hives Verified 05/18/23 12:17 Sulfa (Sulfonamide Allergy Unknown Hives Verified 05/18/23 12:17 Antibiotics) theophylline Allergy Unknown Hives Verified 05/18/23 12:17 ALL ASHLEY DRUGS Allergy Mild ITCHING, Uncoded 05/18/23 12:17 BURNING, SWELLING AT SITE Review of Systems Review of Systems: All systems reviewed & are unremarkable except as noted in HPI and below PMFSH Past Medical History Medical History Acute conjunctivitis of left eye Atrial fibrillation COVID-19 Essential (primary) hypertension Hyperlipidemia Hypothyroidism Kidney stone ALIVIA on CPAP Psoriatic arthritis Restrictive ventilatory defect Spinal stenosis Type 2 diabetes mellitus without complication, without long-term current use of insulin Vitamin D deficiency Family History Family History Sibling Family history of respiratory disorder Family history of diabetes mellitus in first degree relative Family history of congestive heart failure Acute myocardial infarction Mother Family history of chronic obstructive pulmonary disease Family history of congestive heart failure Father Acute myocardial infarction Other Family history of arthritis Family history of malignant neoplasm Family history of mental disorder Hypertension Social History Social History Smoking status: Never smoker Second hand tobacco smoke exposure: Yes Alcohol intake: never Substance use: never Substance use type: does not use Lack of Transportation: No Lack of Food: Never True Current Housing: I Have Housing Concerned About Future Housing: No Difficulty Paying Gas/Electric Bills: No Difficulty Paying for Meds: No C
[2023-05-18 12:52] LABS: Basophils Absolute Auto 0.1 K/mm3 (0.0-0.1); Basophils Percent Auto 0.8 % (0.2-1.2); Eosinophils Absolute Auto 0.1 K/mm3 (0-0.3); Eosinophils Percent Auto 1.3 % (0-4.4); Hematocrit 46.3 % (37.0-47.0); Hemoglobin 14.6 g/dL (12.0-15.0); Immature Granulocyte Absolute 0.01 K/mm3 (0.00-0.031); Immature Granulocyte Percent A 0.1 % (0-0.5); Lymphocytes Absolute Auto 1.86 K/mm3 (0.9-3.2); Lymphocytes Percent Auto 20.8 % (18.3-44.2); Mean Corpuscular HGB Conc 31.5 g/dl (32-36); Mean Corpuscular Hemoglobin 29.8 pg (26-34); Mean Corpuscular Volume 94.5 fl (80-100); Mean Platelet Volume 12.1 fl (7.4-10.4); Monocytes Absolute Auto 0.6 K/mm3 (0.1-0.6); Monocytes Percent Auto 6.6 % (2.6-8.5); Neutrophils Absolute Auto 6.3 K/mm3 (1.3-6.7); Neutrophils Percent Auto 70.4 % (45.5-73.1); Platelet Count Result 225 k/mm3 (150-375); Red Cell Distribution Width 15.8 % (11.5-14.5); White Blood Count 8.9 K/mm3 (4.5-10.0)
[2023-05-18] MEDS: SODIUM CHLORIDE 0.9% IV 1,000 ML 999 ML IV CONT (13:25)
[2023-05-18 13:34] LABS: Alanine Aminotransferase 16 U/L (6-35); Albumin Level 3.9 g/dL (3.5-5.1); Alkaline Phosphatase 84 U/L (38-126); Anion Gap 8 mmol/L (8-16); Aspartate Amino Transferase 24 U/L (14-36); Bilirubin,Total 0.8 mg/dL (0.2-1.3); Blood Urea Nitrogen 17 mg/dL (7-17); Calcium 10.5 mg/dL (8.4-10.2); Carbon Dioxide 30 mmol/L (22-30); Chloride 101 mmol/L (98-107); Estimated CRCL calculation 52 ml/min; Estimated Glomerular Filt Rate 41; Glucose 150 mg/dL (65-110); Lipase 30 U/L (23-300); Potassium 4.3 mmol/L (3.4-5.0); Sodium 139 mmol/L (137-145)
[2023-05-18 13:38] LABS: Appearance Urine Turbid (Clear); Bacteria Urine 4+ /hpf; Bilirubin Urine Negative (Negative); Blood Urine 3+ (Negative); Color Urine Dark Yellow (Yellow); Glucose Urine UA Negative (Negative); Ketones Urine Negative (Negative); Leukocyte Esterase Ur 3+ LEU/UL (Negative); Nitrate Urine Negative (Negative); Non Pathogenic Casts 0-2; Protein Urine 3+ mg/dL (Negative); RBC Urine >100 /hpf (0-2); Specific Grav Ur 1.017 (1.001-1.035); Squamous Epithelial Cell Urine None seen /hpf (Few); WBC Clumps Urine Present /HPF; WBC Urine >100 /hpf
[2023-05-18 13:44] LABS: Add Urine Microscopic? YES
--- NOTE | 2023-05-18 16:14 | PM.IMHP ---
H&P: HPI History of Present Illness Date/Time: 05/18/23 16:14 Chief Complaint: Dark urine with abdominal pain Narrative: Pt is a 67 y/o female who presented to the ED for dark urine and abdominal pain. Patient states that she has been having abdominal pain in pressure for about 2-3 weeks. This is accompanied with dysuria with occasional blood and constipation. She said she is chronically constipated due to tramadol and has not had an actual bowel movement in weeks. She does have stool when she wipes but that is it. She has never had a colonoscopy and does not want one. She denies chest pain, shortness a breath, nausea, vomiting, fevers, or chills. She does have a history of bipolar depression and has anxiety. She also is not very mobile due to right hip pain that she has had for many years with sciatica that she takes tramadol for. She has not had any recent falls. She does typically wear BiPAP at night. Review of Systems Review of Systems: All systems reviewed & are unremarkable except as noted in HPI and below PMFSH Past Medical History Medical History Acute conjunctivitis of left eye Atrial fibrillation COVID-19 Essential (primary) hypertension Hyperlipidemia Hypothyroidism Kidney stone ALIVIA on CPAP Psoriatic arthritis Restrictive ventilatory defect Spinal stenosis Type 2 diabetes mellitus without complication, without long-term current use of insulin Vitamin D deficiency Family History Family History Sibling Family history of respiratory disorder Family history of diabetes mellitus in first degree relative Family history of congestive heart failure Acute myocardial infarction Mother Family history of chronic obstructive pulmonary disease Family history of congestive heart failure Father Acute myocardial infarction Other Family history of arthritis Family history of malignant neoplasm Family history of mental disorder Hypertension Social History Social History Smoking status: Never smoker Second hand tobacco smoke exposure: Yes Alcohol intake: never Substance use: never Substance use type: does not use Lack of Transportation: No Lack of Food: Never True Current Housing: I Have Housing Concerned About Future Housing: No Difficulty Paying Gas/Electric Bills: No Difficulty Paying for Meds: No Currently Unemployed: No Education: High School Diploma/GED Difficulty w/ Childcare or Family Care: No Gender identity (if verbalized by the patient): Female Meds Home Medications and Allergies Home Medications Medication Instructions Recorded Confirmed Type diltiazem HCl 120 mg capsule,24 120 mg PO DAILY 06/29/19 04/23/23 History hr,extended release metoprolol succinate 25 mg 25 mg PO DAILY 01/25/21 04/23/23 History tablet,extended release 24 hr escitalopram oxalate 10 mg tablet 10 mg PO DAILY #30 tabs 03/28/21 04/23/23 Rx escitalopram oxalate 20 mg tablet 20 mg PO DAILY #30 tabs 03/28/21 04/23/23 Rx blood-glucose meter (OneTouch #1 ea 01/04/22 04/23/23 Rx Ultra2 Meter) spirometers and accessories #1 ea 02/20/22 04/23/23 Rx aspirin 81 mg tablet,delayed 81 mg PO DAILY 08/20/22 04/23/23 History release buspirone 30 mg tablet 30 mg PO BID #1 tablet 10/02/22 04/23/23 Rx quetiapine 300 mg tablet 300 mg PO QHS #1 tablet 10/02/22 04/23/23 Rx quetiapine 50 mg tablet 50 mg PO DAILY #1 tablet 10/02/22 04/23/23 Rx cholecalciferol (vitamin D3) 10 2,000 unit PO DAILY 12/17/22 04/23/23 History mcg (400 unit) capsule lancets #200 ea 12/17/22 04/23/23 Rx risperidone 0.5 mg tablet 1 mg PO BID 12/17/22 04/23/23 History trazodone 50 mg tablet 100 mg PO DAILY 12/17/22 04/23/23 History pen needle, diabetic 31 gauge x #150 ea 12/19/22 04/23/23 Rx 5/16 (TRUEplus
[2023-05-18 17:12] VITALS: BP 140/90; PULSE 99; RESP 20; O2SAT 94
[2023-05-18] MEDS: polyethylene glycoL 3350 17 GM POWD.PACK PO (17:48)
[2023-05-18] MEDS: SODIUM CHLORIDE 0.9% IV 1,000 ML 100 ML IV CONT (17:48)
[2023-05-18 17:52] VITALS: BMI 39.6
--- NOTE | 2023-05-18 17:58 | ADMGEN ---
This patient, Carol Gee, was admitted to [facility] Surg Room 329-01. Patient/family oriented to hospital policies and general routines including ID bracelet, bed and alarms, visiting hours, pain management, procedures, bathroom and other care routines, personal items, smoking policy, room service/diet, and visiting hours. Information on how to activate the Rapid Response Team has been discussed. Patient/Family are encouraged to report perceived risks to care and to ask questions if they do not understand what they are told or what they should do.
[2023-05-18 18:26] LABS: Glucose Point of Care 115 mg/dl (65-105)
[2023-05-18] MEDS: busPIRone HCL 10 MG TABLET 30 MG PO (20:52)
[2023-05-18] MEDS: traZODone HCL 50 MG TABLET 100 MG PO (20:52)
[2023-05-18] MEDS: SENNA/DOCUSATE SODIUM TABLET 1 TAB PO (20:52)
[2023-05-18] MEDS: APIXABAN 5 MG TABLET PO (20:52)
[2023-05-18] MEDS: QUEtiapine FUMARATE 100 MG TABLET 300 MG PO (20:52)
[2023-05-18 21:30] LABS: Glucose Point of Care 172 mg/dl (65-105)
[2023-05-18 21:52] VITALS: BP 129/59; PULSE 87; RESP 18; TEMP 36.4; O2SAT 90
[2023-05-18] MEDS: diphenhydrAMINE HCl CAP 25 MG CAPSULE 50 MG PO (22:02)
[2023-05-18] MEDS: ACETAMINOPHEN 325 MG TABLET 650 MG PO (22:02)
[2023-05-18] MEDS: traMADol HCL (*CRX) 50 MG TABLET PO (22:03)
[2023-05-18] MEDS: risperiDONE 1 MG TABLET PO (22:03)
[2023-05-19] VITALS (7 sets, daily range): BP systolic 121–146; BP diastolic 62–79; PULSE 70–85; RESP 14–18; TEMP 36–36.6; O2SAT 92–97
[2023-05-19] MEDS: LEVOTHYROXINE SODIUM 150 MCG TABLET PO (05:36)
[2023-05-19] MEDS: SODIUM CHLORIDE 0.9% IV 1,000 ML 100 ML IV CONT ×2 (05:37→16:35)
[2023-05-19] MEDS: ACETAMINOPHEN 325 MG TABLET 650 MG PO ×2 (05:45→22:21)
--- NOTE | 2023-05-19 06:43 | PCRCNOTE ---
patient was unable to tolerate the mask for the hospital bipap/cpap unit
[2023-05-19 07:01] LABS: Alanine Aminotransferase 15 U/L (6-35); Albumin Level 3.2 g/dL (3.5-5.1); Alkaline Phosphatase 79 U/L (38-126); Anion Gap 6 mmol/L (8-16); Aspartate Amino Transferase 22 U/L (14-36); Bilirubin,Total 0.7 mg/dL (0.2-1.3); Blood Urea Nitrogen 16 mg/dL (7-17); Calcium 9.6 mg/dL (8.4-10.2); Carbon Dioxide 28 mmol/L (22-30); Chloride 104 mmol/L (98-107); Estimated CRCL calculation 66 ml/min; Estimated Glomerular Filt Rate 55; Glucose 133 mg/dL (65-110); Potassium 3.8 mmol/L (3.4-5.0); Sodium 138 mmol/L (137-145)
[2023-05-19 08:09] LABS: Glucose Point of Care 133 mg/dl (65-105)
[2023-05-19] MEDS: INSULIN GLARGINE (*BKC) 100 UNITS/ML 40 UNITS SUB-Q (08:58)
[2023-05-19] MEDS: polyethylene glycoL 3350 17 GM POWD.PACK PO ×2 (08:58→17:16)
[2023-05-19] MEDS: ASPIRIN 81 MG ENTERIC TABLET PO (08:59)
[2023-05-19] MEDS: MAGNESIUM OXIDE 400 MG TABLET 800 MG PO (08:59)
[2023-05-19] MEDS: ESCITALOPRAM OXALATE 10 MG TABLET 30 MG PO (08:59)
[2023-05-19] MEDS: busPIRone HCL 10 MG TABLET 30 MG PO ×2 (08:59→22:23)
[2023-05-19] MEDS: dilTIAZem HCL CD 120 MG CAP.24HR PO (08:59)
[2023-05-19] MEDS: CHOLECALCIFEROL 1,000 UNITS TABLET 2000 UNITS PO (09:00)
[2023-05-19] MEDS: risperiDONE 1 MG TABLET PO ×2 (09:00→22:27)
[2023-05-19] MEDS: QUEtiapine FUMARATE 25 MG TABLET 50 MG PO (09:00)
[2023-05-19] MEDS: APIXABAN 5 MG TABLET PO ×2 (09:00→22:23)
[2023-05-19] MEDS: METOPROLOL SUCCINATE EXT REL 25 MG TABCR PO (09:07)
[2023-05-19 11:32] LABS: Glucose Point of Care 179 mg/dl (65-105)
--- NOTE | 2023-05-19 12:38 | PM.IMPN ---
Progress Note: A&P Assessment and Plan (1) Urinary tract infection: Qualifiers: Hematuria presence: without hematuria Urinary tract infection type: site unspecified Qualified Code(s): N39.0 - Urinary tract infection, site not specified Code(s): N39.0 - Urinary tract infection, site not specified Status: Acute Assessment and Plan: UA and symptoms consistent with UTI -Pt has tried amoxicillin and macrobid outpt with no improvement -unfortunately no urine cx were sent outpt, will send one now -Pt started on ceftriaxone and did well. Pt has many allergies but cephalosporins include hives. Will monitor for hives and tx accordingly. -Does not seem systemically affected at this time Continue Rocephin initiated 05/18 (2) Pyelitis: Code(s): N12 - Tubulo-interstitial nephritis, not specified as acute or chronic Status: Acute Assessment and Plan: as above -Cr a little elevated -Continue fluids, monitor with daily labs (3) Atrial fibrillation: Qualifiers: Atrial fibrillation type: unspecified chronic Qualified Code(s): I48.20 - Chronic atrial fibrillation, unspecified Code(s): I48.91 - Unspecified atrial fibrillation Status: Acute Assessment and Plan: Hx of afib -Continue eliquis (4) Fecal impaction: Code(s): K56.41 - Fecal impaction Status: Acute Assessment and Plan: Noted on CT -Start miralax BID and senna -adjust as needed depending on response (5) Type 2 diabetes mellitus treated with insulin: Code(s): E11.9 - Type 2 diabetes mellitus without complications; Z79.4 - jail (current) use of insulin Status: Acute Assessment and Plan: Last a1c 6.2 -hold oral medication while hospitalized and start SSI (6) Serum calcium elevated: Code(s): E83.52 - Hypercalcemia Status: Acute Assessment and Plan: Noted on labs, could be due to acute illness -monitor (7) ALIVIA on CPAP: Code(s): G47.33 - Obstructive sleep apnea (adult) (pediatric); Z99.89 - Dependence on other enabling machines and devices Status: Acute Assessment and Plan: Will order bipap with her home settings (8) Hypothyroidism: Code(s): E03.9 - Hypothyroidism, unspecified Status: Acute Assessment and Plan: Continue home levothyroxine once verified (9) Bipolar 1 disorder: Code(s): F31.9 - Bipolar disorder, unspecified Status: Acute Assessment and Plan: hx of bipolar -Continue home medications once verified (10) HTN (hypertension), benign: Code(s): I10 - Essential (primary) hypertension Status: Acute Assessment and Plan: Blood pressures reviewed 05/19 Plan psoriasis-f/u with derm hx of AAA-follows Dr. Lopes pcp dr. Romero DVT prophylaxis with Eliquis GI prophylaxis not indicated Code status full code Subjective Date/time seen: 05/19/23 12:38 Interval history: 67-year-old female with history of hyperlipidemia, hypothyroidism, hypertension, AFib and diabetes is presenting with dysuria and abdominal pain and currently being treated for UTI with fecal impaction. No overnight events noted. No chest pain or shortness of breath. No nausea, vomiting or diarrhea. No fevers or chills. Patient does note constipation and dysuria. Review of Systems Review of Systems: 12 point review of systems was assessed and was negative except as noted in the HPI Exam Narrative: General: No acute distress, alert and oriented per baseline HEENT: Atraumatic, normocephalic, mucous membranes moist CV: Regular rate and rhythm, S1, S2 Lungs: Clear to auscultation bilaterally, no rales or crackles noted, no wheezes, good air entry Abdomen: Soft, nontender, nondistended Extremities: Normal to inspection Skin: No rashes noted, no lesions or wounds seen Psych: Euthymic, normal affect Objective D
[2023-05-19 16:57] LABS: Glucose Point of Care 167 mg/dl (65-105)
[2023-05-19 21:00] LABS: Glucose Point of Care 179 mg/dl (65-105)
[2023-05-19] MEDS: SENNA/DOCUSATE SODIUM TABLET 1 TAB PO (22:23)
[2023-05-19] MEDS: QUEtiapine FUMARATE 100 MG TABLET 300 MG PO (22:23)
[2023-05-19] MEDS: traZODone HCL 50 MG TABLET 100 MG PO (22:23)
[2023-05-20] MEDS: SODIUM CHLORIDE 0.9% IV 1,000 ML 100 ML IV CONT ×2 (04:18→13:37)
[2023-05-20 06:00] VITALS: BP 144/99; PULSE 76; RESP 16; TEMP 36.3; O2SAT 98
[2023-05-20] MEDS: LEVOTHYROXINE SODIUM 150 MCG TABLET PO (06:18)
[2023-05-20 07:44] LABS: Glucose Point of Care 149 mg/dl (65-105)
[2023-05-20] MEDS: polyethylene glycoL 3350 17 GM POWD.PACK PO ×2 (08:04→17:24)
[2023-05-20] MEDS: busPIRone HCL 10 MG TABLET 30 MG PO ×2 (08:06→22:18)
[2023-05-20] MEDS: QUEtiapine FUMARATE 25 MG TABLET 50 MG PO (08:06)
[2023-05-20] MEDS: APIXABAN 5 MG TABLET PO ×2 (08:06→22:17)
[2023-05-20] MEDS: ESCITALOPRAM OXALATE 10 MG TABLET 30 MG PO (08:06)
[2023-05-20] MEDS: ASPIRIN 81 MG ENTERIC TABLET PO (08:07)
[2023-05-20] MEDS: dilTIAZem HCL CD 120 MG CAP.24HR PO (08:07)
[2023-05-20] MEDS: MAGNESIUM OXIDE 400 MG TABLET 800 MG PO (08:07)
[2023-05-20] MEDS: risperiDONE 1 MG TABLET PO ×2 (08:07→22:18)
[2023-05-20] MEDS: CHOLECALCIFEROL 1,000 UNITS TABLET 2000 UNITS PO (08:07)
[2023-05-20] MEDS: INSULIN GLARGINE (*BKC) 100 UNITS/ML 40 UNITS SUB-Q (08:13)
[2023-05-20 08:14] VITALS: PULSE 64
[2023-05-20] MEDS: METOPROLOL SUCCINATE EXT REL 25 MG TABCR PO (08:14)
[2023-05-20 09:11] VITALS: O2SAT 94
[2023-05-20 11:32] LABS: Glucose Point of Care 204 mg/dl (65-105)
--- NOTE | 2023-05-20 11:39 | PM.IMPN ---
Progress Note: A&P Assessment and Plan (1) Urinary tract infection: Qualifiers: Hematuria presence: without hematuria Urinary tract infection type: site unspecified Qualified Code(s): N39.0 - Urinary tract infection, site not specified Code(s): N39.0 - Urinary tract infection, site not specified Status: Acute Assessment and Plan: UA and symptoms consistent with UTI -Pt has tried amoxicillin and macrobid outpt with no improvement -unfortunately no urine cx were sent outpt, will send one now -Pt started on ceftriaxone and did well. Pt has many allergies but cephalosporins include hives. Will monitor for hives and tx accordingly. -Does not seem systemically affected at this time Continue Rocephin initiated 05/18, sens pending, positive for ecoli, could be ESBL? (2) Pyelitis: Code(s): N12 - Tubulo-interstitial nephritis, not specified as acute or chronic Status: Acute Assessment and Plan: as above -Cr a little elevated -Continue fluids, monitor with daily labs (3) Atrial fibrillation: Qualifiers: Atrial fibrillation type: unspecified chronic Qualified Code(s): I48.20 - Chronic atrial fibrillation, unspecified Code(s): I48.91 - Unspecified atrial fibrillation Status: Acute Assessment and Plan: Hx of afib -Continue eliquis (4) Fecal impaction: Code(s): K56.41 - Fecal impaction Status: Acute Assessment and Plan: improving (5) Type 2 diabetes mellitus treated with insulin: Code(s): E11.9 - Type 2 diabetes mellitus without complications; Z79.4 - meterman (current) use of insulin Status: Acute Assessment and Plan: Last a1c 6.2 -hold oral medication while hospitalized and start SSI (6) Serum calcium elevated: Code(s): E83.52 - Hypercalcemia Status: Acute Assessment and Plan: Noted on labs, could be due to acute illness -monitor (7) ALIVIA on CPAP: Code(s): G47.33 - Obstructive sleep apnea (adult) (pediatric); Z99.89 - Dependence on other enabling machines and devices Status: Acute Assessment and Plan: Will order bipap with her home settings (8) Hypothyroidism: Code(s): E03.9 - Hypothyroidism, unspecified Status: Acute Assessment and Plan: Continue home levothyroxine once verified (9) Bipolar 1 disorder: Code(s): F31.9 - Bipolar disorder, unspecified Status: Acute Assessment and Plan: hx of bipolar -Continue home medications once verified (10) HTN (hypertension), benign: Code(s): I10 - Essential (primary) hypertension Status: Acute Assessment and Plan: Blood pressures reviewed 05/20 Plan psoriasis-f/u with derm hx of AAA-follows Dr. Lopes pcp dr. Romero DVT prophylaxis with Eliquis GI prophylaxis not indicated Code status full code Subjective Date/time seen: 05/20/23 11:39 Interval history: 67-year-old female with history of hyperlipidemia, hypothyroidism, hypertension, AFib and diabetes is presenting with dysuria and abdominal pain and currently being treated for UTI with fecal impaction. No overnight events noted. No chest pain or shortness of breath. No nausea, vomiting or diarrhea. No fevers or chills. Patient does note constipation and dysuria. Review of Systems Review of Systems: 12 point review of systems was assessed and was negative except as noted in the HPI Exam Narrative: General: No acute distress, alert and oriented per baseline HEENT: Atraumatic, normocephalic, mucous membranes moist CV: Regular rate and rhythm, S1, S2 Lungs: Clear to auscultation bilaterally, no rales or crackles noted, no wheezes, good air entry Abdomen: Soft, nontender, nondistended Extremities: Normal to inspection Skin: No rashes noted, no lesions or wounds seen Psych: Euthymic, normal affect Objective Data Vital Signs Vital
[2023-05-20] MEDS: INSULIN ASPART (*BKC) 100 UNITS/ML SUB-Q (11:47)
[2023-05-20 14:00] VITALS: BP 121/82; PULSE 78; RESP 16; TEMP 37.1; O2SAT 92
[2023-05-20 14:24] LABS: Basophils Percent Auto 0.6 % (0.2-1.2); Eosinophils Absolute Auto 0.2 K/mm3 (0-0.3); Eosinophils Percent Auto 2.9 % (0-4.4); Hematocrit 39.9 % (37.0-47.0); Hemoglobin 12.7 g/dL (12.0-15.0); Immature Granulocyte Absolute 0.02 K/mm3 (0.00-0.031); Immature Granulocyte Percent A 0.3 % (0-0.5); Lymphocytes Absolute Auto 1.41 K/mm3 (0.9-3.2); Lymphocytes Percent Auto 22.6 % (18.3-44.2); Mean Corpuscular HGB Conc 31.8 g/dl (32-36); Mean Corpuscular Hemoglobin 29.9 pg (26-34); Mean Corpuscular Volume 93.9 fl (80-100); Mean Platelet Volume 11.1 fl (7.4-10.4); Monocytes Absolute Auto 0.4 K/mm3 (0.1-0.6); Monocytes Percent Auto 6.3 % (2.6-8.5); Neutrophils Absolute Auto 4.2 K/mm3 (1.3-6.7); Neutrophils Percent Auto 67.3 % (45.5-73.1); Platelet Count Result 155 k/mm3 (150-375); Red Blood Count 4.25 M/mm3 (4.2-5.4); Red Cell Distribution Width 15.7 % (11.5-14.5); White Blood Count 6.2 K/mm3 (4.5-10.0)
[2023-05-20 14:40] LABS: Alanine Aminotransferase 18 U/L (6-35); Albumin Level 3.5 g/dL (3.5-5.1); Alkaline Phosphatase 86 U/L (38-126); Anion Gap 9 mmol/L (8-16); Aspartate Amino Transferase 30 U/L (14-36); Bilirubin,Total 0.5 mg/dL (0.2-1.3); Blood Urea Nitrogen 9 mg/dL (7-17); Calcium 9.6 mg/dL (8.4-10.2); Carbon Dioxide 26 mmol/L (22-30); Chloride 103 mmol/L (98-107); Estimated CRCL calculation 81 ml/min; Estimated Glomerular Filt Rate > 60; Glucose 236 mg/dL (65-110); Potassium 3.8 mmol/L (3.4-5.0); Sodium 138 mmol/L (137-145)
[2023-05-20 16:37] LABS: Glucose Point of Care 161 mg/dl (65-105)
[2023-05-20] MEDS: ACETAMINOPHEN 325 MG TABLET 650 MG PO (17:26)
[2023-05-20 21:30] LABS: Glucose Point of Care 126 mg/dl (65-105)
[2023-05-20 22:00] VITALS: BP 149/91; PULSE 64; RESP 16; TEMP 35.8; O2SAT 95
[2023-05-20] MEDS: QUEtiapine FUMARATE 100 MG TABLET 300 MG PO (22:18)
[2023-05-20] MEDS: traZODone HCL 50 MG TABLET 100 MG PO (22:18)
[2023-05-20] MEDS: SENNA/DOCUSATE SODIUM TABLET 1 TAB PO (22:18)
[2023-05-20] MEDS: traMADol HCL (*CRX) 50 MG TABLET PO (22:19)
[2023-05-20] MEDS: diphenhydrAMINE HCl CAP 25 MG CAPSULE 50 MG PO (22:19)
[2023-05-20 23:20] VITALS: PULSE 64; O2SAT 95
[2023-05-21] MEDS: LEVOTHYROXINE SODIUM 150 MCG TABLET PO (05:34)
[2023-05-21 06:00] VITALS: BP 138/79; PULSE 61; RESP 14; TEMP 36.4; O2SAT 93
[2023-05-21 06:24] LABS: Basophils Percent Auto 0.6 % (0.2-1.2); Eosinophils Absolute Auto 0.3 K/mm3 (0-0.3); Eosinophils Percent Auto 4.6 % (0-4.4); Hematocrit 41.2 % (37.0-47.0); Hemoglobin 12.9 g/dL (12.0-15.0); Immature Granulocyte Absolute 0.02 K/mm3 (0.00-0.031); Immature Granulocyte Percent A 0.3 % (0-0.5); Lymphocytes Absolute Auto 2.58 K/mm3 (0.9-3.2); Lymphocytes Percent Auto 41.3 % (18.3-44.2); Mean Corpuscular HGB Conc 31.3 g/dl (32-36); Mean Corpuscular Volume 95.8 fl (80-100); Mean Platelet Volume 11.3 fl (7.4-10.4); Monocytes Absolute Auto 0.6 K/mm3 (0.1-0.6); Neutrophils Absolute Auto 2.8 K/mm3 (1.3-6.7); Neutrophils Percent Auto 44.2 % (45.5-73.1); Platelet Count Result 155 k/mm3 (150-375); Red Cell Distribution Width 15.5 % (11.5-14.5); White Blood Count 6.3 K/mm3 (4.5-10.0)
[2023-05-21 06:42] LABS: Alanine Aminotransferase 16 U/L (6-35); Albumin Level 3.2 g/dL (3.5-5.1); Alkaline Phosphatase 81 U/L (38-126); Anion Gap 7 mmol/L (8-16); Aspartate Amino Transferase 29 U/L (14-36); Bilirubin,Total 0.5 mg/dL (0.2-1.3); Blood Urea Nitrogen 7 mg/dL (7-17); Calcium 9.5 mg/dL (8.4-10.2); Carbon Dioxide 29 mmol/L (22-30); Chloride 104 mmol/L (98-107); Estimated CRCL calculation 92 ml/min; Estimated Glomerular Filt Rate > 60; Glucose 112 mg/dL (65-110); Potassium 3.3 mmol/L (3.4-5.0); Sodium 140 mmol/L (137-145)
[2023-05-21 08:06] LABS: Glucose Point of Care 108 mg/dl (65-105)
[2023-05-21] MEDS: risperiDONE 1 MG TABLET PO (08:19)
[2023-05-21] MEDS: CHOLECALCIFEROL 1,000 UNITS TABLET 2000 UNITS PO (08:20)
[2023-05-21] MEDS: MAGNESIUM OXIDE 400 MG TABLET 800 MG PO (08:20)
[2023-05-21] MEDS: ESCITALOPRAM OXALATE 10 MG TABLET 30 MG PO (08:20)
[2023-05-21] MEDS: APIXABAN 5 MG TABLET PO (08:20)
[2023-05-21] MEDS: QUEtiapine FUMARATE 25 MG TABLET 50 MG PO (08:20)
[2023-05-21] MEDS: dilTIAZem HCL CD 120 MG CAP.24HR PO (08:20)
[2023-05-21] MEDS: busPIRone HCL 10 MG TABLET 30 MG PO (08:21)
[2023-05-21] MEDS: METOPROLOL SUCCINATE EXT REL 25 MG TABCR PO (08:21)
[2023-05-21] MEDS: ASPIRIN 81 MG ENTERIC TABLET PO (08:21)
[2023-05-21] MEDS: INSULIN GLARGINE (*BKC) 100 UNITS/ML 40 UNITS SUB-Q (08:23)
--- NOTE | 2023-05-21 11:41 | PM.IMPN ---
Progress Note: A&P Assessment and Plan (1) Urinary tract infection: Qualifiers: Hematuria presence: without hematuria Urinary tract infection type: site unspecified Qualified Code(s): N39.0 - Urinary tract infection, site not specified Code(s): N39.0 - Urinary tract infection, site not specified Status: Acute Assessment and Plan: UA and symptoms consistent with UTI -Pt has tried amoxicillin and macrobid outpt with no improvement -unfortunately no urine cx were sent outpt, will send one now -Pt started on ceftriaxone and did well. Pt has many allergies but cephalosporins include hives. Will monitor for hives and tx accordingly. -Does not seem systemically affected at this time Continue Rocephin initiated 05/18, sens showed sens to augmentin, will be d/c on this (2) Pyelitis: Code(s): N12 - Tubulo-interstitial nephritis, not specified as acute or chronic Status: Acute Assessment and Plan: as above -Cr a little elevated -Continue fluids, monitor with daily labs (3) Atrial fibrillation: Qualifiers: Atrial fibrillation type: unspecified chronic Qualified Code(s): I48.20 - Chronic atrial fibrillation, unspecified Code(s): I48.91 - Unspecified atrial fibrillation Status: Acute Assessment and Plan: Hx of afib -Continue eliquis (4) Fecal impaction: Code(s): K56.41 - Fecal impaction Status: Acute Assessment and Plan: improving (5) Type 2 diabetes mellitus treated with insulin: Code(s): E11.9 - Type 2 diabetes mellitus without complications; Z79.4 - [employer] (current) use of insulin Status: Acute Assessment and Plan: Last a1c 6.2 -hold oral medication while hospitalized and start SSI (6) Serum calcium elevated: Code(s): E83.52 - Hypercalcemia Status: Acute Assessment and Plan: Noted on labs, could be due to acute illness -monitor (7) ALIVIA on CPAP: Code(s): G47.33 - Obstructive sleep apnea (adult) (pediatric); Z99.89 - Dependence on other enabling machines and devices Status: Acute Assessment and Plan: Will order bipap with her home settings (8) Hypothyroidism: Code(s): E03.9 - Hypothyroidism, unspecified Status: Acute Assessment and Plan: Continue home levothyroxine once verified (9) Bipolar 1 disorder: Code(s): F31.9 - Bipolar disorder, unspecified Status: Acute Assessment and Plan: hx of bipolar -Continue home medications once verified (10) HTN (hypertension), benign: Code(s): I10 - Essential (primary) hypertension Status: Acute Assessment and Plan: Blood pressures reviewed 05/21 Plan psoriasis-f/u with derm hx of AAA-follows Dr. Lopes pcp dr. Romero DVT prophylaxis with Eliquis GI prophylaxis not indicated Code status full code Subjective Date/time seen: 05/21/23 11:41 Interval history: 67-year-old female with history of hyperlipidemia, hypothyroidism, hypertension, AFib and diabetes is presenting with dysuria and abdominal pain and currently being treated for UTI with fecal impaction. No overnight events noted. No chest pain or shortness of breath. No nausea, vomiting or diarrhea. No fevers or chills. Patient does note constipation and dysuria, much improved today. Multiple bowel movements. Review of Systems Review of Systems: 12 point review of systems was assessed and was negative except as noted in the HPI Exam Narrative: General: No acute distress, alert and oriented per baseline HEENT: Atraumatic, normocephalic, mucous membranes moist CV: Regular rate and rhythm, S1, S2 Lungs: Clear to auscultation bilaterally, no rales or crackles noted, no wheezes, good air entry Abdomen: Soft, nontender, nondistended Extremities: Normal to inspection Skin: No rashes noted, no lesions or wounds seen Psych: Euthymic, normal a
[2023-05-21 11:48] LABS: Glucose Point of Care 141 mg/dl (65-105)
[2023-05-21] MEDS: SODIUM CHLORIDE 0.9% IV 1,000 ML 100 ML IV CONT (11:52)
[2023-05-21] MEDS: ACETAMINOPHEN 325 MG TABLET 650 MG PO (13:16)
[2023-05-21 14:00] VITALS: BP 138/70; PULSE 83; RESP 20; TEMP 36.5; O2SAT 90
--- NOTE | 2023-05-21 14:24 | PM.DS ---
DS: Admitting Diagnosis Discharge Date 05/21/23 Admitting Diagnosis dysuria DS: Discharge Diagnosis Discharge Diagnosis (1) Urinary tract infection: Qualifiers: Hematuria presence: without hematuria Urinary tract infection type: site unspecified Qualified Code(s): N39.0 - Urinary tract infection, site not specified Code(s): N39.0 - Urinary tract infection, site not specified Status: Acute Assessment and Plan: UA and symptoms consistent with UTI -Pt has tried amoxicillin and macrobid outpt with no improvement -unfortunately no urine cx were sent outpt, will send one now -Pt started on ceftriaxone and did well. Pt has many allergies but cephalosporins include hives. Will monitor for hives and tx accordingly. -Does not seem systemically affected at this time Continue Rocephin initiated 05/18, sens showed sens to augmentin, will be d/c on this (2) Pyelitis: Code(s): N12 - Tubulo-interstitial nephritis, not specified as acute or chronic Status: Acute Assessment and Plan: as above -Cr a little elevated -Continue fluids, monitor with daily labs (3) Atrial fibrillation: Qualifiers: Atrial fibrillation type: unspecified chronic Qualified Code(s): I48.20 - Chronic atrial fibrillation, unspecified Code(s): I48.91 - Unspecified atrial fibrillation Status: Acute Assessment and Plan: Hx of afib -Continue eliquis (4) Fecal impaction: Code(s): K56.41 - Fecal impaction Status: Acute Assessment and Plan: improving (5) Type 2 diabetes mellitus treated with insulin: Code(s): E11.9 - Type 2 diabetes mellitus without complications; Z79.4 - meterman (current) use of insulin Status: Acute Assessment and Plan: Last a1c 6.2 -hold oral medication while hospitalized and start SSI (6) Serum calcium elevated: Code(s): E83.52 - Hypercalcemia Status: Acute Assessment and Plan: Noted on labs, could be due to acute illness -monitor (7) ALIVIA on CPAP: Code(s): G47.33 - Obstructive sleep apnea (adult) (pediatric); Z99.89 - Dependence on other enabling machines and devices Status: Acute Assessment and Plan: Will order bipap with her home settings (8) Hypothyroidism: Code(s): E03.9 - Hypothyroidism, unspecified Status: Acute Assessment and Plan: Continue home levothyroxine once verified (9) Bipolar 1 disorder: Code(s): F31.9 - Bipolar disorder, unspecified Status: Acute Assessment and Plan: hx of bipolar -Continue home medications once verified (10) HTN (hypertension), benign: Code(s): I10 - Essential (primary) hypertension Status: Acute Assessment and Plan: Blood pressures reviewed 05/21 Plan psoriasis-f/u with derm hx of AAA-follows Dr. Lopes pcp dr. Romero DVT prophylaxis with Eliquis GI prophylaxis not indicated Code status full code DS: Summary Hospital Course Hospital Course: 67-year-old female with history of hyperlipidemia, hypothyroidism, hypertension, AFib and diabetes is presenting with dysuria and abdominal pain and currently being treated for UTI with fecal impaction. UA and symptoms consistent with UTI -Pt has tried amoxicillin and macrobid outpt with no improvement -unfortunately no urine cx were sent outpt, will send one now -Pt started on ceftriaxone and did well. Pt has? many allergies but cephalosporins include hives. Will monitor for hives and tx accordingly. -Does not seem systemically affected at this time Continue Rocephin initiated 05/18, sens showed sens to augmentin, will be d/c on this All symptoms resolved, bowels moved successfully with MiraLax. Please see above and med rec for details. Patient was discharged in stable condition with close outpatient follow-up. Time Spent with Patient Time attestation: Total time spent providing and/or c
[2023-05-21 16:52] LABS: Glucose Point of Care 146 mg/dl (65-105)
== END 2023-05-21 17:25 | disposition home or self-care (01) | DRG 690 ==
LOC: ANHED 15:31 → ANH3MEDSUR 17:19
PROVIDERS: Physician Assistant; Admitting Provider Internal Medicine; Emergency Provider Emergency Medicine; PCP Nurse Practitioner Family; Visit Provider Student in an Organized Health Care Education/Training Program
DX: N39.0 Urinary tract infection, site not specified (principal); B96.20 Unspecified Escherichia coli [E. coli] as the cause of diseases classified elsewhere; N12 Tubulo-interstitial nephritis, not specified as acute or chronic; K56.41 Fecal impaction; E11.9 Type 2 diabetes mellitus without complications; E55.9 Vitamin D deficiency, unspecified; E03.9 Hypothyroidism, unspecified; E78.5 Hyperlipidemia, unspecified; F31.9 Bipolar disorder, unspecified; G47.33 Obstructive sleep apnea (adult) (pediatric); I10 Essential (primary) hypertension; I48.91 Unspecified atrial fibrillation; L40.50 Arthropathic psoriasis, unspecified; M54.31 Sciatica, right side; Z86.16 Personal history of COVID-19; Z99.89 Dependence on other enabling machines and devices; Z79.4 Long term (current) use of insulin; Z79.82 Long term (current) use of aspirin; Z79.01 Long term (current) use of anticoagulants; Z90.49 Acquired absence of other specified parts of digestive tract; Z90.710 Acquired absence of both cervix and uterus
CPT/HCPCS: 36415; 74177; 80053; 81001; 82948; 83605; 83690; 85025; 87077; 87086; 87186; 96360; 96361; 97161; 97165; 97530; 97535; 99285; A9270; J0696; J1815; J7030; Q9967

== ENCOUNTER 2023-10-06 13:03 | Emergency (ER) | payer MEDICARE, MEDICAID, SELFPAY ==
[2023-10-06 13:29] VITALS: BP 122/85; PULSE 90; RESP 18; TEMP 36.6; O2SAT 97
[2023-10-06 14:13] LABS: Appearance Urine Turbid (Clear); Bacteria Urine 4+ /hpf; Bilirubin Urine Negative (Negative); Blood Urine 2+ (Negative); Color Urine Yellow (Yellow); Glucose Urine UA Negative (Negative); Ketones Urine Negative (Negative); Leukocyte Esterase Ur 3+ LEU/UL (Negative); Nitrate Urine Positive (Negative); Non Pathogenic Casts 0-2; Protein Urine 2+ mg/dL (Negative); Specific Grav Ur 1.018 (1.001-1.035); Squamous Epithelial Cell Urine Occasional /hpf (Few); Urobilinogen Urine 0.2 mg/dL (<2.0); WBC Urine >100 /hpf (0-3); pH Urine 5.5 (5.0-9.0)
[2023-10-06 14:15] LABS: Add Urine Microscopic? YES
--- NOTE | 2023-10-06 14:58 | ED.GENADULT ---
HPI - General Adult General Chief complaint: Urogenital-Female Stated complaint: UTI Time Seen by Provider: 10/06/23 13:59 History of Present Illness HPI narrative: Patient is a 67-year-old female who presents ER with concerns for UTI. She reports dysuria. Ongoing over last 3-4 days. Recently finished a prescription of Augmentin for UTI. Patient has had recurrent UTIs over last couple months. She is being referred to Urology. No fevers or chills or sweats. No abdominal pain. No vaginal discharge or irritation around the vagina. Related Data Home Medications Medication Instructions Recorded Confirmed diltiazem HCl 120 mg capsule,24 120 mg PO DAILY 06/29/19 09/20/23 hr,extended release metoprolol succinate 25 mg 25 mg PO DAILY 01/25/21 09/20/23 tablet,extended release 24 hr aspirin 81 mg tablet,delayed 81 mg PO DAILY 08/20/22 09/20/23 release cholecalciferol (vitamin D3) 10 2,000 unit PO DAILY 12/17/22 09/20/23 mcg (400 unit) capsule risperidone 0.5 mg tablet 1 mg PO BID 12/17/22 09/20/23 trazodone 50 mg tablet 100 mg PO DAILY 12/17/22 09/20/23 evolocumab 140 mg/mL subcutaneous 140 mg subcut ONCE 04/23/23 09/20/23 pen injector (Jennifer Curran) Allergies Allergy/AdvReac Type Severity Reaction Status Date / Time Cephalosporins Allergy Unknown Hives Verified 09/20/23 14:24 ciprofloxacin Allergy Unknown Hives Verified 09/20/23 14:24 codeine Allergy Unknown Hives Verified 09/20/23 14:24 erythromycin base Allergy Unknown Hives Verified 09/20/23 14:24 levofloxacin Allergy Unknown Hives Verified 09/20/23 14:24 lidocaine Allergy Unknown Hives Verified 09/20/23 14:24 Macrolide Antibiotics Allergy Unknown Hives Verified 09/20/23 14:24 Quinolones Allergy Unknown Hives Verified 09/20/23 14:24 Sulfa (Sulfonamide Allergy Unknown Hives Verified 09/20/23 14:24 Antibiotics) theophylline Allergy Unknown Hives Verified 09/20/23 14:24 citalopram AdvReac Unknown Agitated Verified 09/20/23 14:24 ALL ASHLEY DRUGS Allergy Mild ITCHING, Uncoded 09/20/23 14:24 BURNING, SWELLING AT SITE Review of Systems Constitutional: Constitutional: Reports no additional constitutional complaints Gastrointestinal: Gastrointestinal: Reports no additional gastrointestinal complaints Genitourinary: Genitourinary: Reports nocturia, Reports dysuria, Denies pelvic pain, Denies flank pain and Denies vaginal discharge [facility] Past Medical History Medical History Acute conjunctivitis of left eye Atrial fibrillation COVID-19 Essential (primary) hypertension Hyperlipidemia Hypothyroidism Kidney stone ALIVIA on CPAP Psoriatic arthritis Restrictive ventilatory defect Spinal stenosis Type 2 diabetes mellitus without complication, without long-term current use of insulin Vitamin D deficiency Family History Family History Sibling Family history of respiratory disorder Family history of diabetes mellitus in first degree relative Family history of congestive heart failure Acute myocardial infarction Mother Family history of chronic obstructive pulmonary disease Family history of congestive heart failure Father Acute myocardial infarction Other Family history of arthritis Family history of malignant neoplasm Family history of mental disorder Hypertension Social History Social History Smoking status: Never smoker Second hand tobacco smoke exposure: Yes Alcohol intake: never Substance use: never Substance use type: does not use Lack of Transportation: No Lack of Food: Never True Current Housing: I Have Housing Concerned About Future Housing: No Difficulty Paying Gas/Electric Bills: No Difficulty Paying for Meds: No Currently Unemployed: No Education: High School Diploma/GED Difficu
== END 2023-10-06 15:26 | disposition home or self-care (01) ==
PROVIDERS: Emergency Medicine; Emergency Provider Emergency Medicine; PCP Nurse Practitioner Family
DX: N39.0 Urinary tract infection, site not specified (principal); I48.91 Unspecified atrial fibrillation; I10 Essential (primary) hypertension; E78.5 Hyperlipidemia, unspecified; E03.9 Hypothyroidism, unspecified; E11.9 Type 2 diabetes mellitus without complications; E55.9 Vitamin D deficiency, unspecified; G47.33 Obstructive sleep apnea (adult) (pediatric); L40.50 Arthropathic psoriasis, unspecified; Z87.442 Personal history of urinary calculi; Z86.16 Personal history of COVID-19; Z79.82 Long term (current) use of aspirin; Z79.4 Long term (current) use of insulin
CPT/HCPCS: 81001; 87077; 87086; 87186; 99283

== ENCOUNTER 2023-10-15 16:14 | Inpatient (IN) | payer MEDICARE, MEDICAID, SELFPAY ==
[2023-10-15] VITALS (11 sets, daily range): BP systolic 121–173; BP diastolic 80–148; PULSE 67–122; RESP 13–20; TEMP 36.2–36.6; O2SAT 93–97
--- NOTE | ~2023-10-15 | CT_ITS ---
EXAMINATION: CT chest abdomen pelvis wo con DATE: 10/15/2023 22:41 INDICATION: Weight loss. TECHNIQUE: Computed tomography (CT) of the chest, abdomen, and pelvis was performed without intraveno us contrast. Automated exposure control and iterative reconstruction technique were employed. The dos e-length product was 1201.03 mGy-cm. COMPARISON: CT abdomen and pelvis 05/18/2023 FINDINGS: CHEST CT: The lungs demonstrate mild atelectasis. A calcified left lung nodule and calcified left hilar lymph n odes are consistent with old granulomatous disease. No pleural effusion. The heart size is normal. Th ere are coronary artery calcifications. No pericardial effusion. The central pulmonary is enlarged, c onsistent with pulmonary artery hypertension. There is moderate thoracic spondylosis. ABDOMEN/PELVIS CT: The liver demonstrates surface nodularity, consistent with cirrhosis. There are changes of cholecyste ctomy. The spleen, pancreas, and left adrenal gland are normal. There is a 4.7 cm mass in right adren al gland containing fat, consistent with a myelolipoma. Right kidney is normal. There is a 12 mm ston e in left kidney. There is a periumbilical ventral hernia containing fat. Stool distends the rectum. The appendix is normal. Aortic atherosclerosis is noted. There is diffuse bladder wall thickening. Th ere are no pathologically enlarged lymph nodes. There is no free intraperitoneal fluid. There is rodrigo re lumbar spondylosis. IMPRESSION: 1. Cirrhosis of the liver. 2. Periumbilical ventral hernia containing fat. 3. Stool distends the rectum. 4. Bladder wall thickening again seen, consistent with cystitis. Reviewed, dictated and finalized at location E.
--- NOTE | 2023-10-15 16:25 | ECG_ITS ---
SEE SCANNED COPY FOR CONFIRMED REPORT MTDD
[2023-10-15 16:40] LABS: Basophils Absolute Auto 0.1 K/mm3 (0.0-0.1); Basophils Percent Auto 0.8 % (0.2-1.2); Eosinophils Absolute Auto 0.1 K/mm3 (0-0.3); Hematocrit 45.3 % (37.0-47.0); Hemoglobin 14.8 g/dL (12.0-15.0); Immature Granulocyte Absolute 0.01 K/mm3 (0.00-0.031); Immature Granulocyte Percent A 0.2 % (0-0.5); Lymphocytes Absolute Auto 1.86 K/mm3 (0.9-3.2); Lymphocytes Percent Auto 28.1 % (18.3-44.2); Mean Corpuscular HGB Conc 32.7 g/dl (32-36); Mean Corpuscular Hemoglobin 29.8 pg (26-34); Mean Corpuscular Volume 91.3 fl (80-100); Mean Platelet Volume 10.7 fl (7.4-10.4); Monocytes Absolute Auto 0.5 K/mm3 (0.1-0.6); Neutrophils Absolute Auto 4.1 K/mm3 (1.3-6.7); Neutrophils Percent Auto 61.9 % (45.5-73.1); Platelet Count Result 189 k/mm3 (150-375); Red Blood Count 4.96 M/mm3 (4.2-5.4); Red Cell Distribution Width 15.5 % (11.5-14.5); White Blood Count 6.6 K/mm3 (4.5-10.0)
[2023-10-15 16:45] LABS: Appearance Urine Turbid (Clear); Bacteria Urine 4+ /hpf; Bilirubin Urine Negative (Negative); Blood Urine 2+ (Negative); Color Urine Yellow (Yellow); Glucose Urine UA Negative (Negative); Ketones Urine Trace mg/dL (Negative); Leukocyte Esterase Ur 3+ LEU/UL (Negative); Nitrate Urine Negative (Negative); Non Pathogenic Casts 0-2; Protein Urine 2+ mg/dL (Negative); RBC Urine 21-50 /hpf (0-2); Specific Grav Ur 1.018 (1.001-1.035); Squamous Epithelial Cell Urine None Seen /hpf (Few); Urobilinogen Urine 0.2 mg/dL (<2.0); WBC Urine >100 /hpf (0-3); pH Urine 6.5 (5.0-9.0)
[2023-10-15] MEDS: SODIUM CHLORIDE 0.9% IV 1,000 ML 999 ML IV CONT (16:49)
[2023-10-15 16:51] LABS: Alanine Aminotransferase 15 U/L (6-35); Albumin Level 4.2 g/dL (3.5-5.1); Alkaline Phosphatase 91 U/L (38-126); Anion Gap 8 mmol/L (4-12); Aspartate Amino Transferase 23 U/L (14-36); Bilirubin,Total 0.6 mg/dL (0.2-1.3); Blood Urea Nitrogen 19 mg/dL (7-17); Calcium 10.6 mg/dL (8.4-10.2); Carbon Dioxide 28 mmol/L (22-30); Chloride 104 mmol/L (98-107); Estimated Glomerular Filt Rate 45; Glucose 160 mg/dL (65-110); Potassium 4.5 mmol/L (3.4-5.0); Sodium 140 mmol/L (137-145)
[2023-10-15 16:51] LABS: Lactic Acid Reflex 1.5 mmol/L (0.7-2.0)
[2023-10-15 16:54] LABS: Add Urine Microscopic? YES
--- NOTE | 2023-10-15 17:43 | ED.GENADULT ---
HPI - General Adult General Chief complaint: Dizziness Stated complaint: possible dehydration Time Seen by Provider: 10/15/23 16:19 Source: patient and family Mode of arrival: ambulatory Limitations: no limitations History of Present Illness HPI narrative: 67-year-old with a history of atrial fibrillation, diabetes, hypertension was sent in from her doctor's office with a complaint of possible dehydration. Patient family was at bedside states that she becomes dizzy and falls and was found to be orthostatic at the doctor's office in she denies any nausea, vomiting or diarrhea. Patient's daughter states that she finished 4 rounds of antibiotics for UTI. No history of fever or chills. Denies any abdominal pain. Onset (ago): week(s) (1) Severity: moderate Exacerbating factors: none Associated symptoms: confusion and malaise Related Data Home Medications Medication Instructions Recorded Confirmed diltiazem HCl 120 mg capsule,24 120 mg PO DAILY 06/29/19 10/15/23 hr,extended release metoprolol succinate 25 mg 25 mg PO DAILY 01/25/21 10/15/23 tablet,extended release 24 hr aspirin 81 mg tablet,delayed 81 mg PO DAILY 08/20/22 10/15/23 release cholecalciferol (vitamin D3) 10 2,000 unit PO DAILY 12/17/22 10/15/23 mcg (400 unit) capsule risperidone 0.5 mg tablet 1 mg PO BID 12/17/22 10/15/23 evolocumab 140 mg/mL subcutaneous 140 mg subcut ONCE 04/23/23 10/15/23 pen injector (Jennifer Curran) L.acidoph, paracasei,B. lactis 10 cell PO 10/15/23 10/15/23 billion cell capsule Allergies Allergy/AdvReac Type Severity Reaction Status Date / Time Cephalosporins Allergy Unknown Hives Verified 10/15/23 14:30 ciprofloxacin Allergy Unknown Hives Verified 10/15/23 14:30 codeine Allergy Unknown Hives Verified 10/15/23 14:30 erythromycin base Allergy Unknown Hives Verified 10/15/23 14:30 levofloxacin Allergy Unknown Hives Verified 10/15/23 14:30 lidocaine Allergy Unknown Hives Verified 10/15/23 14:30 Macrolide Antibiotics Allergy Unknown Hives Verified 10/15/23 14:30 Quinolones Allergy Unknown Hives Verified 10/15/23 14:30 Sulfa (Sulfonamide Allergy Unknown Hives Verified 10/15/23 14:30 Antibiotics) theophylline Allergy Unknown Hives Verified 10/15/23 14:30 citalopram AdvReac Unknown Agitated Verified 10/15/23 14:30 ALL ASHLEY DRUGS Allergy Mild ITCHING, Uncoded 10/15/23 14:30 BURNING, SWELLING AT SITE Review of Systems Review of Systems: All systems reviewed & are unremarkable except as noted in HPI and below Constitutional: Constitutional: Reports no additional constitutional complaints Eyes: Eyes: Reports no additional eye complaints ENT: Reports system reviewed and no additional complaints, except as documented Cardiovascular: Cardiovascular: Reports no additional cardiovascular complaints Respiratory: Respiratory: Reports no additional respiratory complaints Gastrointestinal: Gastrointestinal: Reports no additional gastrointestinal complaints Genitourinary: Genitourinary: Reports as per HPI Musculoskeletal: Musculoskeletal: Reports no additional musculoskeletal complaints Neurologic: Reports system reviewed and no additional complaints, except as documented Psychiatric: Psychiatric: Reports no additional psychiatric complaints Endocrine: Endocrine: Reports no additional endocrine complaints Hematologic/Lymphatic: Hematologic/Lymphatic: Reports no additional hematologic/lymphatic complaints Allergic/Immunologic: Allergic/Immunologic: Reports no additional allergic/immunologic complaints [facility] Past Medical History Medical History Acute conjunctivitis of left eye Atrial fibrillation COVID-19 Essential (primary) hypertension Hyperlipidemia Hypothyroidism Kidney stone ALIVIA on CPAP Psoriatic arthritis Restrictive ventilatory defect Spinal stenosis Type 2 diabetes mellitus without complication, without long-term current use of insuli
[2023-10-15] MEDS: MEROPENEM 1 GM/NS 100 ML 1 GM/100 ML BAG IVPB (18:06)
[2023-10-15 21:03] LABS: Glucose Point of Care 131 mg/dl (65-105)
[2023-10-15] MEDS: SODIUM CHLORIDE 0.9% IV 1,000 ML 125 ML IV CONT (21:47)
--- NOTE | 2023-10-15 22:04 | PM.IMHP ---
H&P: HPI History of Present Illness Date/Time: 10/15/23 18:45 Chief Complaint: Dizziness. Narrative: This is a 67-year-old female with atrial fibrillation, type 2 diabetes mellitus, hypertension, hypothyroidism, chronic kidney disease, depression, and psoriasis who presented to the emergency department from her doctor's office for evaluation of dizziness. The patient provides the following history. She had a routine appointment today at which time she was noted to have had a 40 lb weight loss in the past 6 months. Her appetite has been poor and while she does eat every day it is only in small amounts. Over the past week or so she has been increasingly weak and she has has several falls in the past 2 weeks. The falls seem to occur shortly after going from a seated to standing position and she feels weak and lightheaded prior to the falls. Luckily she has not sustained any injury and there has been no head trauma or loss of consciousness. She admits that she is in a deep depression at this time and she seems to sleep a lot. She does not have much desire to do anything and she admits that she has been neglecting herself care. She only showers perhaps once a week. Recently she has had issues with recurrent urinary tract infection and she continues to complain of ongoing dysuria despite having been treated with several antibiotics recently for UTIs. She denies fever, cold and flu symptoms, chest and pleuritic pain, palpitations, shortness of breath, nausea, vomiting, and diarrhea. In the ED: She was afebrile on arrival. Orthostatic blood pressures were positive (118/74 - 90/60). Labs were significant for a BUN of 19, creatinine 1.20, calcium 10.6. Urine was positive for 2+ protein, trace ketones, 2+ blood, 3+ leukocyte esterase, 21 to 50 RBC, greater than 100 WBC, and 4+ bacteria. She was given a L normal saline and 1 g meropenem and she is being admitted in this setting for further treatment. Review of Systems Review of Systems: 12 systems were reviewed and are negative except for as per HPI. [facility] Past Medical History Medical History (Updated 10/15/23 @ 22:22 by Tonya Law PA-C) Ascending aortic aneurysm Atrial fibrillation No longer on anticoagulation as of fall 2022 due to history of falls. Chronic kidney disease COVID-19 Depression Essential (primary) hypertension Hyperlipidemia Hypothyroidism Kidney stone Obstructive sleep apnea treated with BiPAP Psoriasis Psoriatic arthritis Spinal stenosis Type 2 diabetes mellitus Vitamin D deficiency Surgical History Surgical History (Updated 10/15/23 @ 22:12 by Tonya Law PA-C) History of bunionectomy History of hysterectomy Family History Family History Sibling Family history of respiratory disorder Family history of diabetes mellitus in first degree relative Family history of congestive heart failure Acute myocardial infarction Mother Family history of chronic obstructive pulmonary disease Family history of congestive heart failure Father Acute myocardial infarction Other Family history of arthritis Family history of malignant neoplasm Family history of mental disorder Hypertension Social History Social History (Updated 10/15/23 @ 22:13 by Tonya Law PA-C) Social History: Surrogate medical decision maker: June Gee or Sienna Roy, daughters. Code status: Full code. Smoking status: Never smoker Second hand tobacco smoke exposure: Yes Alcohol intake: never Substance use: never Substance use type: does not use Do You Feel Safe in your Home?: Yes Lack of Transportation: No Lack of Food: Never True Current Housing: I Have Housing Concerned About Future Housing: No Difficulty Paying Gas/Electric Bills: No Difficulty Paying for Meds: No Currently Unemployed: No Education: High School Diploma/GED Difficulty w/ Child
[2023-10-15 23:01] LABS: Hemoglobin A1C 5.7 % (<5.7)
[2023-10-16] VITALS (8 sets, daily range): BP systolic 111–153; BP diastolic 48–80; PULSE 53–83; RESP 16–20; TEMP 36.1–36.6; O2SAT 93–98
[2023-10-16] MEDS: busPIRone HCL 10 MG TABLET 30 MG PO ×3 (00:25→17:00)
[2023-10-16] MEDS: traMADol HCL (*CRX) 50 MG TABLET PO ×2 (00:26→22:30)
[2023-10-16] MEDS: QUEtiapine FUMARATE 100 MG TABLET 300 MG PO ×2 (00:26→22:30)
[2023-10-16] MEDS: ACETAMINOPHEN 325 MG TABLET 650 MG PO ×3 (00:26→22:31)
[2023-10-16] MEDS: risperiDONE 1 MG TABLET PO ×3 (00:26→17:00)
[2023-10-16] MEDS: TOLNAFTATE 1% POWDER 45 GM BTL 1 APPLIC TOPICAL ×3 (00:27→22:31)
[2023-10-16] MEDS: MEROPENEM 1 GM/NS 100 ML 1 GM/100 ML BAG IVPB (05:51)
[2023-10-16] MEDS: LEVOTHYROXINE SODIUM 150 MCG TABLET PO (05:51)
[2023-10-16 06:33] LABS: Basophils Absolute Auto 0.1 K/mm3 (0.0-0.1); Basophils Percent Auto 0.7 % (0.2-1.2); Eosinophils Absolute Auto 0.2 K/mm3 (0-0.3); Eosinophils Percent Auto 2.4 % (0-4.4); Hematocrit 42.2 % (37.0-47.0); Hemoglobin 13.7 g/dL (12.0-15.0); Immature Granulocyte Absolute 0.01 K/mm3 (0.00-0.031); Immature Granulocyte Percent A 0.1 % (0-0.5); Lymphocytes Absolute Auto 2.78 K/mm3 (0.9-3.2); Lymphocytes Percent Auto 41.1 % (18.3-44.2); Mean Corpuscular HGB Conc 32.5 g/dl (32-36); Mean Corpuscular Hemoglobin 30.3 pg (26-34); Mean Corpuscular Volume 93.4 fl (80-100); Mean Platelet Volume 10.8 fl (7.4-10.4); Monocytes Absolute Auto 0.6 K/mm3 (0.1-0.6); Monocytes Percent Auto 8.1 % (2.6-8.5); Neutrophils Absolute Auto 3.2 K/mm3 (1.3-6.7); Neutrophils Percent Auto 47.6 % (45.5-73.1); Platelet Count Result 173 k/mm3 (150-375); Red Blood Count 4.52 M/mm3 (4.2-5.4); Red Cell Distribution Width 15.4 % (11.5-14.5); White Blood Count 6.8 K/mm3 (4.5-10.0)
[2023-10-16 06:43] LABS: Anion Gap 3 mmol/L (4-12); Blood Urea Nitrogen 15 mg/dL (7-17); Calcium 9.9 mg/dL (8.4-10.2); Carbon Dioxide 30 mmol/L (22-30); Chloride 105 mmol/L (98-107); Estimated CRCL calculation 65 ml/min; Estimated Glomerular Filt Rate > 60; Glucose 96 mg/dL (65-110); Magnesium 2.1 mg/dL (1.6-2.3); Potassium 3.9 mmol/L (3.4-5.0); Sodium 138 mmol/L (137-145)
[2023-10-16 08:10] LABS: Glucose Point of Care 97 mg/dl (65-105)
[2023-10-16] MEDS: SODIUM CHLORIDE 0.9% IV 1,000 ML 125 ML IV CONT (08:26)
[2023-10-16] MEDS: ENOXAPARIN 40 MG/0.4 ML SYRINGE SUB-Q (08:26)
[2023-10-16] MEDS: ACIDOPHILUS/BULGARICUS CHEWABLE TABLET 2 TABLET BY MOUTH (08:27)
[2023-10-16] MEDS: polyethylene glycoL 3350 17 GM POWD.PACK PO (08:27)
[2023-10-16] MEDS: ESCITALOPRAM OXALATE 10 MG TABLET 30 MG PO (08:27)
[2023-10-16] MEDS: QUEtiapine FUMARATE 25 MG TABLET 50 MG PO (08:28)
[2023-10-16] MEDS: CHOLECALCIFEROL 1,000 UNITS TABLET 2000 UNITS PO (08:28)
[2023-10-16] MEDS: MAGNESIUM OXIDE 400 MG TABLET 800 MG PO (08:29)
[2023-10-16] MEDS: ASPIRIN 81 MG ENTERIC TABLET PO (08:29)
[2023-10-16] MEDS: METOPROLOL SUCCINATE EXT REL 25 MG TABCR PO (08:29)
[2023-10-16] MEDS: dilTIAZem HCL CD 120 MG CAP.24HR PO (08:32)
[2023-10-16 11:58] LABS: Glucose Point of Care 145 mg/dl (65-105)
[2023-10-16] MEDS: cefTRIAXone 2 GM/NS 100 ML 2 GM/100 ML BAG IVPB (13:11)
--- NOTE | 2023-10-16 14:24 | PM.IMPN ---
Progress Note: A&P Assessment and Plan (1) Recurrent urinary tract infection: Code(s): N39.0 - Urinary tract infection, site not specified Status: Acute Assessment and Plan: 10/16/2023: 2+ urine protein, trace ketones, 2+ urine blood that is leukocyte 21-50 urine RBCs, greater than 100 urine wbc's, bacteria 4+. Urine culture is pending Patient history of ESBL in her urine back in 2019 however the last 2 urine cultures showed E coli and we will go ahead and switch her antibiotic from cefepime to Rocephin per ID pharmacist recommendation. PT and OT ordered to eval and treat (2) Orthostatic hypotension: Code(s): I95.1 - Orthostatic hypotension Status: Acute Assessment and Plan: 10/16/2023: Patient was found to have orthostatic hypotension. B/P while supine 118/74, sitting 110/68, and standing 90/60 Continue orthostatic blood pressures Q shift (3) Mild dehydration: Code(s): E86.0 - Dehydration Status: Acute Assessment and Plan: 10/16/2023: Patient was given 1 L normal saline and started on maintenance IV fluids at 100 mls per hour (4) Depression: Code(s): F32.A - Depression, unspecified Status: Acute Assessment and Plan: 10/16/2023: Continue Lexapro and BuSpar (5) Type 2 diabetes mellitus: Code(s): E11.9 - Type 2 diabetes mellitus without complications Status: Acute Assessment and Plan: 10/16/2023: Blood sugars ranging 97-140 Hemoglobin A1c 5.7 on 10/15/2023 Continue Lantus 25 units at bedtime Moderate dose Sliding scale insulin ordered Hypoglycemic protocol in place Diabetic diet (6) Atrial fibrillation: Qualifiers: Atrial fibrillation type: unspecified chronic Qualified Code(s): I48.20 - Chronic atrial fibrillation, unspecified Code(s): I48.91 - Unspecified atrial fibrillation Status: Acute Assessment and Plan: 10/16/2023: Continue metoprolol 25 mg (7) Hypothyroidism: Code(s): E03.9 - Hypothyroidism, unspecified Status: Acute Assessment and Plan: 10/16/2023: Synthroid continue Time Spent With Patient Time with patient: Greater than 35 minutes Subjective Date/time seen: 10/16/23 14:24 Interval history: Narrative: 09/14/23: (copy forward from chart) This is a 67-year-old female with atrial fibrillation, type 2 diabetes mellitus, hypertension, hypothyroidism, chronic kidney disease, depression, and psoriasis who presented to the emergency department from her doctor's office for evaluation of dizziness. The patient provides the following history. She had a routine appointment today at which time she was noted to have had a 40 lb weight loss in the past 6 months. Her appetite has been poor and while she does eat every day it is only in small amounts. Over the past week or so she has been increasingly weak and she has has several falls in the past 2 weeks. The falls seem to occur shortly after going from a seated to standing position and she feels weak and lightheaded prior to the falls. Luckily she has not sustained any injury and there has been no head trauma or loss of consciousness. She admits that she is in a deep depression at this time and she seems to sleep a lot. She does not have much desire to do anything and she admits that she has been neglecting herself care. She only showers perhaps once a week. Recently she has had issues with recurrent urinary tract infection and she continues to complain of ongoing dysuria despite having been treated with several antibiotics recently for UTIs. She denies fever, cold and flu symptoms, chest and pleuritic pain, palpitations, shortness of breath, nausea, vomiting, and diarrhea. In the ED: She was afebrile on arrival. Orthostatic blood pressures were positive (118/74 - 90/60). Labs were significant for a BUN of 19, creatinine 1.20, calcium 10.6. Urine was positive for 2+ protein, trace ketones, 2+ blood, 3+ leukocyte esteras
[2023-10-16 16:55] LABS: Glucose Point of Care 157 mg/dl (65-105)
[2023-10-16 22:28] LABS: Glucose Point of Care 171 mg/dl (65-105)
[2023-10-16] MEDS: MIRTAZAPINE 7.5 MG TABLET PO (22:31)
[2023-10-17 05:15] VITALS: BP 136/84; PULSE 57; RESP 16; TEMP 36.6; O2SAT 95
[2023-10-17] MEDS: LEVOTHYROXINE SODIUM 150 MCG TABLET PO (05:50)
[2023-10-17 06:19] LABS: Basophils Percent Auto 0.7 % (0.2-1.2); Eosinophils Absolute Auto 0.2 K/mm3 (0-0.3); Eosinophils Percent Auto 3.6 % (0-4.4); Hematocrit 41.8 % (37.0-47.0); Hemoglobin 13.5 g/dL (12.0-15.0); Immature Granulocyte Absolute 0.01 K/mm3 (0.00-0.031); Immature Granulocyte Percent A 0.2 % (0-0.5); Lymphocytes Percent Auto 49.8 % (18.3-44.2); Mean Corpuscular HGB Conc 32.3 g/dl (32-36); Mean Corpuscular Hemoglobin 30.1 pg (26-34); Mean Corpuscular Volume 93.1 fl (80-100); Mean Platelet Volume 10.6 fl (7.4-10.4); Monocytes Absolute Auto 0.5 K/mm3 (0.1-0.6); Neutrophils Absolute Auto 2.3 K/mm3 (1.3-6.7); Neutrophils Percent Auto 37.7 % (45.5-73.1); Platelet Count Result 159 k/mm3 (150-375); Red Blood Count 4.49 M/mm3 (4.2-5.4); Red Cell Distribution Width 15.3 % (11.5-14.5)
[2023-10-17 06:35] LABS: Alanine Aminotransferase 15 U/L (6-35); Albumin Level 3.5 g/dL (3.5-5.1); Alkaline Phosphatase 74 U/L (38-126); Anion Gap 5 mmol/L (4-12); Aspartate Amino Transferase 25 U/L (14-36); Bilirubin,Total 0.5 mg/dL (0.2-1.3); Blood Urea Nitrogen 14 mg/dL (7-17); Carbon Dioxide 26 mmol/L (22-30); Chloride 107 mmol/L (98-107); Estimated CRCL calculation 65 ml/min; Estimated Glomerular Filt Rate > 60; Glucose 139 mg/dL (65-110); Potassium 3.8 mmol/L (3.4-5.0); Sodium 138 mmol/L (137-145)
[2023-10-17 07:38] LABS: Glucose Point of Care 133 mg/dl (65-105)
[2023-10-17 08:00] VITALS: BP 132/86
[2023-10-17 08:27] VITALS: O2SAT 98
[2023-10-17] MEDS: CHOLECALCIFEROL 1,000 UNITS TABLET 2000 UNITS PO (09:56)
[2023-10-17] MEDS: ASPIRIN 81 MG ENTERIC TABLET PO (09:56)
[2023-10-17] MEDS: METOPROLOL SUCCINATE EXT REL 25 MG TABCR PO (09:56)
[2023-10-17] MEDS: busPIRone HCL 10 MG TABLET 30 MG PO ×2 (09:57→21:35)
[2023-10-17] MEDS: MAGNESIUM OXIDE 400 MG TABLET 800 MG PO (09:57)
[2023-10-17] MEDS: ESCITALOPRAM OXALATE 10 MG TABLET 30 MG PO (09:57)
[2023-10-17] MEDS: polyethylene glycoL 3350 17 GM POWD.PACK PO (09:57)
[2023-10-17] MEDS: dilTIAZem HCL CD 120 MG CAP.24HR PO (09:57)
[2023-10-17] MEDS: risperiDONE 1 MG TABLET PO ×2 (09:57→21:34)
[2023-10-17] MEDS: ACIDOPHILUS/BULGARICUS CHEWABLE TABLET 2 TABLET BY MOUTH (09:57)
[2023-10-17] MEDS: QUEtiapine FUMARATE 25 MG TABLET 50 MG PO (09:58)
[2023-10-17] MEDS: INSULIN GLARGINE (*BKC) 100 UNITS/ML 25 UNITS SUB-Q (09:58)
[2023-10-17] MEDS: ENOXAPARIN 40 MG/0.4 ML SYRINGE SUB-Q (09:58)
[2023-10-17] MEDS: TOLNAFTATE 1% POWDER 45 GM BTL 1 APPLIC TOPICAL ×2 (09:59→21:36)
[2023-10-17 11:19] LABS: Glucose Point of Care 170 mg/dl (65-105)
[2023-10-17 14:00] VITALS: BP 149/81; PULSE 90; RESP 18; TEMP 36.4; O2SAT 93
--- NOTE | 2023-10-17 14:13 | PM.IMPN ---
Progress Note: A&P Assessment and Plan (1) Recurrent urinary tract infection: Code(s): N39.0 - Urinary tract infection, site not specified Status: Acute (2) Orthostatic hypotension: Code(s): I95.1 - Orthostatic hypotension Status: Acute (3) Mild dehydration: Code(s): E86.0 - Dehydration Status: Acute (4) Depression: Code(s): F32.A - Depression, unspecified Status: Acute (5) Type 2 diabetes mellitus: Code(s): E11.9 - Type 2 diabetes mellitus without complications Status: Acute (6) Atrial fibrillation: Qualifiers: Atrial fibrillation type: unspecified chronic Qualified Code(s): I48.20 - Chronic atrial fibrillation, unspecified Code(s): I48.91 - Unspecified atrial fibrillation Status: Acute (7) Hypothyroidism: Code(s): E03.9 - Hypothyroidism, unspecified Status: Acute Assessment and Plan: 67-year-old female with atrial fibrillation, type 2 diabetes mellitus, hypertension, hypothyroidism, chronic kidney disease, depression, and psoriasis who presented to the emergency department from her doctor's office for evaluation of dizziness. 1. UTI: Continue with ceftriaxone Await urine culture 2. Dizziness: Was orthostatic positive Received IV fluid Denies any dizziness at the moment PT/OT 3. History of atrial fibrillation: Continue with metoprolol, Cardizem 4. Constipation: Continue with MiraLax Will add 1 time Dulcolax suppository 5. Diabetes mellitus: Blood glucose checked t.i.d. a.c. and HS Continue with Lantus and sliding scale insulin Adjust dose as needed 6. History of hypothyroidism: Continue with levothyroxine 7. History of depression: Continue with Lexapro and BuSpar 8. DVT prophylaxis: Lovenox 9. Code status: Full 10. Disposition: Needs SNF placement Time Spent With Patient Time with patient: 15 - 25 minutes Subjective Date/time seen: 10/17/23 14:13 Interval history: No acute events overnight Review of Systems Review of Systems: All systems reviewed & are unremarkable except as noted in HPI and below Exam Narrative: General: In no acute distress, well nourished Head: atraumatic, no encephalopathy Eyes: EOMI, PERRLA, sclera clear ENT: moist mucous membranes, nasal passages clear Neck: supple, no JVD, no adenopathy, trachea midline Cardiac: Normal S1 and S2. No murmur, gallops or friction rubs, peripheral pulses intact. Respiratory: Lungs clear to auscultation, no adventitious lung sounds, currently on room air Gastrointestinal: soft, non-distended, non-tender, normoactive bowel sounds. : voiding without difficulty. Extremities: moves all extremities well, no edema, uses walker Skin: clean, dry, intact. No wounds or lesions. Neuro: Alert and oriented x4, cranial nerves intact, no neuro deficits. Psych: normal mood, normal affect, interactive, slow to respond Objective Data Vital Signs Vital Signs: Vital Signs - 24 hr 10/16/23 22:00 10/16/23 22:55 10/16/23 20:00 Temperature 97.8 F Pulse Rate 62 62 62 Respiratory Rate 16 16 Blood Pressure 143/67 H Pulse Oximetry 96 98 98 Oxygen Delivery CPAP CPAP Fraction of Inspired Oxygen 10/17/23 02:20 10/16/23 20:00 10/16/23 20:05 Temperature Pulse Rate Respiratory Rate Blood Pressure 153/76 H 118/52 L Pulse Oximetry Oxygen Delivery CPAP Fraction of Inspired Oxygen 10/16/23 20:10 10/17/23 05:15 10/17/23 08:00 Temperature 97.8 F Pulse Rate 57 L Respiratory Rate 16 Blood Pressure 111/48 L 136/84 132/86 Pulse Oximetry 95 Oxygen Delivery Fraction of Inspired Oxygen 10/17/23 08:27 10/17/23 08:00 10/17/23 11:45 Temperature Pulse Rate Respiratory Rate Blood Pressure Pulse Oximetry 98 Oxygen Delivery Room Air Room Air Room Air Fraction of Inspired Oxygen 21 Intake/Output Intake/Output: Intake & Output 10/14/23 10/15/23 10/16/23
[2023-10-17] MEDS: cefTRIAXone 2 GM/NS 100 ML 2 GM/100 ML BAG IVPB (15:00)
[2023-10-17 16:27] LABS: Glucose Point of Care 158 mg/dl (65-105)
[2023-10-17 20:31] LABS: Glucose Point of Care 174 mg/dl (65-105)
[2023-10-17 20:55] VITALS: BP 143/74; PULSE 71; RESP 16; TEMP 36.1; O2SAT 93
[2023-10-17] MEDS: QUEtiapine FUMARATE 100 MG TABLET 300 MG PO (21:33)
[2023-10-17] MEDS: traMADol HCL (*CRX) 50 MG TABLET PO (21:34)
[2023-10-17] MEDS: MIRTAZAPINE 7.5 MG TABLET PO (21:35)
[2023-10-18 05:03] VITALS: BP 151/84; PULSE 52; RESP 18; TEMP 36.1; O2SAT 99
[2023-10-18] MEDS: LEVOTHYROXINE SODIUM 150 MCG TABLET PO (05:21)
[2023-10-18 06:31] LABS: Basophils Absolute Auto 0.1 K/mm3 (0.0-0.1); Basophils Percent Auto 0.8 % (0.2-1.2); Eosinophils Absolute Auto 0.2 K/mm3 (0-0.3); Eosinophils Percent Auto 3.7 % (0-4.4); Hemoglobin 13.4 g/dL (12.0-15.0); Immature Granulocyte Absolute 0.01 K/mm3 (0.00-0.031); Immature Granulocyte Percent A 0.2 % (0-0.5); Lymphocytes Absolute Auto 2.33 K/mm3 (0.9-3.2); Lymphocytes Percent Auto 37.6 % (18.3-44.2); Mean Corpuscular HGB Conc 31.9 g/dl (32-36); Mean Corpuscular Hemoglobin 30.2 pg (26-34); Mean Corpuscular Volume 94.6 fl (80-100); Mean Platelet Volume 11.1 fl (7.4-10.4); Monocytes Absolute Auto 0.5 K/mm3 (0.1-0.6); Monocytes Percent Auto 8.4 % (2.6-8.5); Neutrophils Absolute Auto 3.1 K/mm3 (1.3-6.7); Neutrophils Percent Auto 49.3 % (45.5-73.1); Platelet Count Result 178 k/mm3 (150-375); Red Blood Count 4.44 M/mm3 (4.2-5.4); Red Cell Distribution Width 15.3 % (11.5-14.5); White Blood Count 6.2 K/mm3 (4.5-10.0)
[2023-10-18 06:56] LABS: Alanine Aminotransferase 18 U/L (6-35); Albumin Level 3.6 g/dL (3.5-5.1); Alkaline Phosphatase 82 U/L (38-126); Anion Gap 5 mmol/L (4-12); Aspartate Amino Transferase 27 U/L (14-36); Bilirubin,Total 0.4 mg/dL (0.2-1.3); Blood Urea Nitrogen 14 mg/dL (7-17); Calcium 9.8 mg/dL (8.4-10.2); Carbon Dioxide 29 mmol/L (22-30); Chloride 104 mmol/L (98-107); Estimated CRCL calculation 72 ml/min; Estimated Glomerular Filt Rate > 60; Glucose 135 mg/dL (65-110); Potassium 3.5 mmol/L (3.4-5.0); Sodium 138 mmol/L (137-145)
--- NOTE | 2023-10-18 07:51 | PC.NURSE ---
This patient, Carol Gee, was admitted to [facility] Surg Room 304-01. Patient/family oriented to hospital policies and general routines including ID bracelet, bed and alarms, visiting hours, pain management, procedures, bathroom and other care routines, personal items, smoking policy, room service/diet, and visiting hours. Information on how to activate the Rapid Response Team has been discussed. Patient/Family are encouraged to report perceived risks to care and to ask questions if they do not understand what they are told or what they should do.
[2023-10-18 07:55] LABS: Glucose Point of Care 155 mg/dl (65-105)
[2023-10-18 08:30] VITALS: PULSE 65; RESP 12; TEMP 35.7; O2SAT 96
[2023-10-18 08:50] VITALS: BP 138/90
[2023-10-18] MEDS: busPIRone HCL 10 MG TABLET 30 MG PO (10:28)
[2023-10-18] MEDS: ACIDOPHILUS/BULGARICUS CHEWABLE TABLET 2 TABLET BY MOUTH (10:29)
[2023-10-18] MEDS: ASPIRIN 81 MG ENTERIC TABLET PO (10:29)
[2023-10-18] MEDS: ESCITALOPRAM OXALATE 10 MG TABLET 30 MG PO (10:30)
[2023-10-18] MEDS: CHOLECALCIFEROL 1,000 UNITS TABLET 2000 UNITS PO (10:30)
[2023-10-18] MEDS: CEFDINIR 300 MG CAPSULE PO (10:30)
[2023-10-18] MEDS: dilTIAZem HCL CD 120 MG CAP.24HR PO (10:30)
[2023-10-18] MEDS: MAGNESIUM OXIDE 400 MG TABLET 800 MG PO (10:31)
[2023-10-18] MEDS: polyethylene glycoL 3350 17 GM POWD.PACK PO (10:31)
[2023-10-18] MEDS: METOPROLOL SUCCINATE EXT REL 25 MG TABCR PO (10:31)
[2023-10-18] MEDS: QUEtiapine FUMARATE 25 MG TABLET 50 MG PO (10:31)
[2023-10-18] MEDS: risperiDONE 1 MG TABLET PO (10:32)
[2023-10-18] MEDS: INSULIN GLARGINE (*BKC) 100 UNITS/ML 25 UNITS SUB-Q (10:47)
[2023-10-18] MEDS: ENOXAPARIN 40 MG/0.4 ML SYRINGE SUB-Q (10:53)
[2023-10-18 11:04] LABS: Glucose Point of Care 167 mg/dl (65-105)
--- NOTE | 2023-10-18 11:42 | PM.IMPN ---
Progress Note: A&P Assessment and Plan (1) Recurrent urinary tract infection: Code(s): N39.0 - Urinary tract infection, site not specified Status: Acute (2) Orthostatic hypotension: Code(s): I95.1 - Orthostatic hypotension Status: Acute (3) Mild dehydration: Code(s): E86.0 - Dehydration Status: Acute (4) Depression: Code(s): F32.A - Depression, unspecified Status: Acute (5) Type 2 diabetes mellitus: Code(s): E11.9 - Type 2 diabetes mellitus without complications Status: Acute (6) Atrial fibrillation: Qualifiers: Atrial fibrillation type: unspecified chronic Qualified Code(s): I48.20 - Chronic atrial fibrillation, unspecified Code(s): I48.91 - Unspecified atrial fibrillation Status: Acute (7) Hypothyroidism: Code(s): E03.9 - Hypothyroidism, unspecified Status: Acute Assessment and Plan: 67-year-old female with atrial fibrillation, type 2 diabetes mellitus, hypertension, hypothyroidism, chronic kidney disease, depression, and psoriasis who presented to the emergency department from her doctor's office for evaluation of dizziness. She had a regular appointment with her PCP. She was noted to have 40 lb weight loss in the past 6 months. Her appetite has been poor and she has been increasingly getting weak and had several falls in the past 2 weeks. Falls seem to occur shortly after going from a seated to standing position and N/C feels weak and lightheaded prior to the fall. She has not sustained any injury with no 8 trauma or loss of consciousness. She also had issues with recurrent UTI and was also complaining of ongoing dysuria. In the EDC was afebrile orthostatic blood pressure were positive 118-90. Labs were significant for BUN of 19 creatinine of 1.2 calcium 10.6 urinalysis was positive for 2+ protein trace ketones 2+ blood 3+ leukocyte esterase 21-50 RBC greater than 100 WBC and 4+ bacteria. She received IV fluids and 1 g meropenem and is admitted for further treatment. Meropenem was chosen due to history of ESBL. CT chest abdomen pelvis was performed for weight loss which showed findings of cirrhosis of liver 1. UTI: Continue with ceftriaxone Urine culture with Klebsiella oxytocia a sensitive to ceftriaxone. She has been switched to Omnicef 2. Dizziness: Was orthostatic positive Received IV fluid Denies any dizziness at the moment PT/OT 3. History of atrial fibrillation: Continue with metoprolol, Cardizem 4. Constipation: Continue with MiraLax 5. Diabetes mellitus: Blood glucose checked t.i.d. a.c. and HS Continue with Lantus and sliding scale insulin Adjust dose as needed 6. History of hypothyroidism: Continue with levothyroxine 7. History of depression: Continue with Lexapro and BuSpar 8. DVT prophylaxis: Lovenox 9. Code status: Full 10. Disposition: Needs SNF placement. Awaiting placement 11. cirrhosis of liver newly detected on CT need follow-up as an outpatient basis Subjective Date/time seen: 10/18/23 11:42 Interval history: No Overnight events. Wonders when she is going to [facility] today reports she came in with UTI and had urinary symptoms but these all resolved. No shortness of breath chest pain or cough Review of Systems Review of Systems: All systems reviewed & are unremarkable except as noted in HPI and below Exam Narrative: General: In no acute distress, well nourished Head: atraumatic, no encephalopathy Eyes: EOMI, PERRLA, sclera clear ENT: moist mucous membranes, nasal passages clear Neck: supple, no JVD, no adenopathy, trachea midline Cardiac: Normal S1 and S2. No murmur, gallops or friction rubs, peripheral pulses intact. Respiratory: Lungs clear to auscultation, no adventitious lung sounds, currently on room air Gastrointestinal: soft, non-distended, non-tender, normoactive bowel sounds. : voiding without difficulty. Extremities: moves all ex
--- NOTE | 2023-10-18 11:49 | PC.NURSE ---
documentation done by Claudia Longo overseen by this RN
[2023-10-18] MEDS: TOLNAFTATE 1% POWDER 45 GM BTL 1 APPLIC TOPICAL (12:18)
--- NOTE | 2023-10-18 12:47 | PC.NURSE ---
Carol, a 67 F presented with dizziness, dehydration and a uti. Carol graduated to oral Cefdinir and family is preparing for discharge to [facility] or a care facility in [place] for rehab services. Carol expresses fear and uncertainty regarding her transfer. She is uncertain of what services will be provided at [facility] and how much freedom she can retain to adhere to the lifestyle she prefers. Carol was educated on the general services provided by a short term rehab facility in regards to PT/OT/Care.
--- NOTE | 2023-10-18 14:18 | PCCDE ---
10/18/23: 1:50 pm -2:05 PM ??? A1C:? 5.7 (10/15/23) + DM Admission Screen secondary to reported daily low blood sugars. Upon conversation with pt, when asked what low numbers seeing pt statin, 111. When inquired re: what are her and MD target glucose readings, unable to answer. ?What should I do if I don?t have glucose tablets?? Also asking about protein. Pt also very tired. Per conversation with RN; Daughter to be here in few hours to transport pt to [facility]. -? Educated re: definition/treatment low glucose -? Educated general ADA target BG -? Answered patient?s questions to her satisfaction. -? Showed and reviewed ?plate? in ADA booklet (enc?d to speak with RD at [place]) -? Provided ?How to Thrive: A Guide for Your Journey with Diabetes? (ADA). MARIA DE JESUS
--- NOTE | 2023-10-18 14:57 | PM.DS ---
DS: Admitting Diagnosis Discharge Date 10/18/2023 Admitting Diagnosis Dizziness DS: Discharge Diagnosis Discharge Diagnosis (1) Recurrent urinary tract infection: Code(s): N39.0 - Urinary tract infection, site not specified Status: Acute (2) Orthostatic hypotension: Code(s): I95.1 - Orthostatic hypotension Status: Acute (3) Mild dehydration: Code(s): E86.0 - Dehydration Status: Acute (4) Depression: Code(s): F32.A - Depression, unspecified Status: Acute (5) Type 2 diabetes mellitus: Code(s): E11.9 - Type 2 diabetes mellitus without complications Status: Acute (6) Atrial fibrillation: Qualifiers: Atrial fibrillation type: unspecified chronic Qualified Code(s): I48.20 - Chronic atrial fibrillation, unspecified Code(s): I48.91 - Unspecified atrial fibrillation Status: Acute (7) Hypothyroidism: Code(s): E03.9 - Hypothyroidism, unspecified Status: Acute DS: Summary Hospital Course Hospital Course: 67-year-old female with atrial fibrillation, type 2 diabetes mellitus, hypertension, hypothyroidism, chronic kidney disease, depression, and psoriasis who presented to the emergency department from her doctor's office for evaluation of dizziness.? She had a regular appointment with her PCP.? She was noted to have 40 lb weight loss in the past 6 months.? Her appetite has been poor and she has been increasingly getting weak and had several falls in the past 2 weeks.? Falls seem to occur shortly after going from a seated to standing position and N/C feels weak and lightheaded prior to the fall.? She has not sustained any injury with no 8 trauma or loss of consciousness.? She also had issues with recurrent UTI and was also complaining of ongoing dysuria. In the EDC was afebrile orthostatic blood pressure were positive 118-90.? Labs were significant for BUN of 19 creatinine of 1.2 calcium 10.6 urinalysis was positive for 2+ protein trace ketones 2+ blood 3+ leukocyte esterase 21-50 RBC greater than 100 WBC and 4+ bacteria.? She received IV fluids and 1 g meropenem and is admitted for further treatment.? Meropenem was chosen due to history of ESBL.? CT chest abdomen pelvis was performed for weight loss which showed findings of cirrhosis of liver. Urine culture grew Klebsiella which is sensitive ceftriaxone and was eventually switched to oral antibiotics. PT OT recommended rehabilitation and with the help of care coordination she is getting transferred to a rehabilitation unit for further treatment. 1. UTI: Continue with ceftriaxone Urine culture with Klebsiella oxytocia a sensitive to ceftriaxone.? She has been switched to Omnicef and finish the course 2. Dizziness: Was orthostatic positive Received IV fluid Denies any dizziness at the moment PT/OT 3. History of atrial fibrillation: Continue with metoprolol, Cardizem 4. Constipation: Continue with MiraLax 5. Diabetes mellitus: Blood glucose checked t.i.d. a.c. and HS Continue with Lantus and sliding scale insulin Adjust dose as needed 6. History of hypothyroidism: Continue with levothyroxine 7. History of depression: Continue with Lexapro and BuSpar 8. DVT prophylaxis:? Lovenox 9. Code status:? Full 10. Disposition:? Needs SNF placement. 11. cirrhosis of liver newly detected on CT need follow-up as an outpatient basis Time Spent with Patient Time attestation: Total time spent providing and/or coordinating discharge services: 35 minutes Exam Narrative: General: In no acute distress, well nourished Head: atraumatic, no encephalopathy Eyes: EOMI, PERRLA, sclera clear ENT: moist mucous membranes, nasal passages clear Neck: supple, no JVD, no adenopathy, trachea midline Cardiac: Normal S1 and S2. No murmur, gallops or friction rubs, peripheral pulses intact. Respiratory: Lungs clear to auscultation, no adventitious lung sounds, currently on room air Gastrointestinal:
[2023-10-18 15:34] LABS: SARS-CoV-2 RNA PCR Negative (Negative)
[2023-10-18 15:37] VITALS: BP 156/87; PULSE 82; RESP 12; TEMP 36; O2SAT 96
[2023-10-18 16:01] LABS: Glucose Point of Care 158 mg/dl (65-105)
== END 2023-10-18 18:15 | DRG 690 ==
LOC: ANHED 17:58 → ANH3MEDSUR 18:16
PROVIDERS: Family Medicine; Nurse Practitioner Acute Care; Physician Assistant; Admitting Provider Internal Medicine; Emergency Provider Family Medicine; PCP Nurse Practitioner Family; Visit Provider Internal Medicine
DX: N39.0 Urinary tract infection, site not specified (principal); I48.20 Chronic atrial fibrillation, unspecified; I12.9 Hypertensive chronic kidney disease with stage 1 through stage 4 chronic kidney disease, or unspecified chronic kidney disease; N18.9 Chronic kidney disease, unspecified; E11.22 Type 2 diabetes mellitus with diabetic chronic kidney disease; E86.0 Dehydration; E78.5 Hyperlipidemia, unspecified; E03.9 Hypothyroidism, unspecified; E55.9 Vitamin D deficiency, unspecified; I95.1 Orthostatic hypotension; L40.50 Arthropathic psoriasis, unspecified; M48.00 Spinal stenosis, site unspecified; R63.4 Abnormal weight loss; R29.6 Repeated falls; G47.33 Obstructive sleep apnea (adult) (pediatric); Z20.822 Contact with and (suspected) exposure to COVID-19; Z79.82 Long term (current) use of aspirin; Z87.442 Personal history of urinary calculi; Z79.4 Long term (current) use of insulin
CPT/HCPCS: 36415; 71250; 74176; 80048; 80053; 81001; 82948; 83036; 83605; 83735; 84443; 85025; 87077; 87086; 87088; 87186; 87635; 93005; 96360; 97161; 97165; 99285; A9270; J0696; J1650; J1815; J2185; J7030

== ENCOUNTER 2023-11-30 13:26 | Outpatient (CLI) | payer MEDICARE, MEDICAID, SELFPAY ==
--- NOTE | ~2023-11-30 | XR_ITS ---
EXAMINATION: XR abdomen/kub 1V DATE: 11/30/2023 13:59 INDICATION: Kidney stone. TECHNIQUE: A supine view of the abdomen on 2 radiographs was obtained. COMPARISON: CT abdomen and pelvis 10/15/2023 FINDINGS: There is a large volume of stool in the colon with distention of the rectum. Surgical clips in the right upper quadrant are likely from cholecystectomy. IMPRESSION: 1. No visible urolithiasis. 2. Large volume of stool in the colon with distention of the rectum. Reviewed, dictated and finalized at location E.
--- NOTE | ~2023-11-30 | XR_ITS ---
EXAMINATION: XR chest 2V DATE: 11/30/2023 13:59 INDICATION: Other nonspecific abnormal findings of lung field. TECHNIQUE: Frontal and lateral views of the chest were obtained. COMPARISON: Chest 2 views 07/14/2020 FINDINGS: A calcified left lung nodule and calcified left hilar lymph nodes are consistent with old g ranulomatous disease. There is no pneumonia, pleural effusion, or pneumothorax. The heart size is nor mal. IMPRESSION: 1. No acute cardiopulmonary disease. Reviewed, dictated and finalized at location E.
== END 2023-11-30 13:27 | disposition home or self-care (01) ==
PROVIDERS: PCP Nurse Practitioner Family; Referring Provider Physician Assistant; Visit Provider Nurse Practitioner Family
DX: R91.8 Other nonspecific abnormal finding of lung field (principal); N20.0 Calculus of kidney; R63.4 Abnormal weight loss
CPT/HCPCS: 71046; 74018

== ENCOUNTER 2023-12-18 14:28 | Outpatient (CLI) | payer MEDICARE, MEDICAID, SELFPAY ==
--- NOTE | ~2023-12-18 | CT_ITS ---
CTA chest Ordering provider: Franco Lopes, History: 68 years Female with . ANEURYSM OF ASCENDING AORTA . Comparison: October 15, 2023 Technique: CT angiogram chest was performed following timed intravenous injection of contrast. Thin s lice axial images and reformatted coronal images were obtained. Three dimensional reformatted images of the chest were also obtained using a [employer] workstation. Radiation reduction technique utilized. DLP measures 601.04 mGy. Findings: PULMONARY ARTERIES: Filling defects are seen in the right pulmonary artery branches for the right low er lobe suggestive of pulmonary embolism. No definite right atrial strain is seen although mild degre e is not excluded. VISUALIZED THORACIC INLET: Ascending aorta measures 4.2 cm. MEDIASTINUM: Aorta/coronary arteries: Mild atheromatous disease. Heart/other: The heart is not enlarged. Lymph nodes: No mediastinal or hilar adenopathy. Prevascular lymph node is seen measuring 1.1 cm. LUNGS: Multiple groundglass appearing areas are seen which may indicate edema versus pneumonia but imaging d uring expiration is not excluded. Otherwise, No pulmonary nodules or masses. No effusions. No pneumot horax. VISUALIZED UPPER ABDOMEN: Status post cholecystectomy. Right adrenal mass which measures 3.8 x 5.3 cm which appears slightly larger than the previous study. Stone in the left renal pelvis with mild hydr onephrotic changes. Mild dilatation of the right renal pelvis is also noted. Otherwise, the visualize d upper abdomen is normal. MUSCULOSKELETAL: Soft tissues: The superficial soft tissues are normal. Bones: Age appropriate degenerative changes of the spine. IMPRESSION: 1. Pulmonary embolism. Mild right atrial strain is not excluded. 2. 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 Further evaluation advised. 3. Left renal pelvis stone with bilateral renal pelvis fullness. 4. Ascending aorta measures 4.2 cm. I tried to reach Dr. Franco Lopes and was transferred to the hospitalist office. A message was left at 9:35 AM on December 27, 2023 Reviewed, dictated and finalized at location A. IMPRESSION: 1. Pulmonary embolism. Mild right atrial strain is not excluded. 2. Mass in the right adrenal gland most likely myelolipoma which is slightly larger than the previous study. Further evaluation advised. 3. Left renal pelvis stone with bilateral renal pelvis fullness. 4. Ascending aorta measures 4.2 cm. I tried to reach Dr. Franco Lopes and was transferred to the hospitalist office. A message was left at 9:35 AM on December 27, 2023
[2023-12-18 15:05] LABS: Estimated Glomerular Filt Rate 50
== END 2023-12-18 14:29 | disposition home or self-care (01) ==
PROVIDERS: PCP Nurse Practitioner Family; Visit Provider Internal Medicine Cardiovascular Disease
DX: I71.21 Aneurysm of the ascending aorta, without rupture (principal); I26.99 Other pulmonary embolism without acute cor pulmonale; E27.9 Disorder of adrenal gland, unspecified; N20.0 Calculus of kidney; I25.10 Atherosclerotic heart disease of native coronary artery without angina pectoris; I48.0 Paroxysmal atrial fibrillation; I11.0 Hypertensive heart disease with heart failure; I50.33 Acute on chronic diastolic (congestive) heart failure; E78.2 Mixed hyperlipidemia
CPT/HCPCS: 71275; Q9967

== ENCOUNTER 2024-03-30 09:31 | Inpatient (IN) | payer MEDICARE, MEDICAID, SELFPAY ==
[2024-03-30] VITALS (29 sets, daily range): BP systolic 94–127; BP diastolic 55–78; PULSE 78–117; RESP 9–31; TEMP 36.1–36.7; O2SAT 89–100; BMI 33.3
--- NOTE | ~2024-03-30 | US_ITS ---
EXAMINATION: US renal BI DATE: 03/30/2024 18:01 INDICATION: hematuria, hx kidney stones TECHNIQUE: Multiple grayscale and Doppler ultrasound images of the kidneys were obtained. COMPARISON: CTA chest 12/18/2023 CT cap 10/15/2023. FINDINGS: The right kidney measures 10.3 x 4.9 x 5.3 cm. The left kidney measures 9.7 x 4.7 x 5.1 cm. The kidne ys demonstrate normal parenchymal echogenicity. 1.2 cm left inferior pole stone. There is no hydronep hrosis. The bladder is normal. 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 IMPRESSION: Left nephrolithiasis. Reviewed, dictated and finalized at location [facility]. IMPRESSION: Left nephrolithiasis.
[2024-03-30] MEDS: SODIUM CHLORIDE 0.9% IV 1,000 ML 999 ML IV CONT (10:00)
[2024-03-30 10:09] LABS: Basophils Percent Auto 0.6 % (0.2-1.2); Eosinophils Absolute Auto 0.1 K/mm3 (0-0.3); Eosinophils Percent Auto 1.8 % (0-4.4); Hematocrit 32.7 % (37.0-47.0); Hemoglobin 10.6 g/dL (12.0-15.0); Immature Granulocyte Absolute 0.01 K/mm3 (0.00-0.031); Immature Granulocyte Percent A 0.1 % (0-0.5); Lymphocytes Absolute Auto 1.66 K/mm3 (0.9-3.2); Lymphocytes Percent Auto 24.3 % (18.3-44.2); Mean Corpuscular HGB Conc 32.4 g/dl (32-36); Mean Corpuscular Hemoglobin 30.7 pg (26-34); Mean Corpuscular Volume 94.8 fl (80-100); Mean Platelet Volume 11.3 fl (7.4-10.4); Monocytes Absolute Auto 0.7 K/mm3 (0.1-0.6); Monocytes Percent Auto 10.7 % (2.6-8.5); Neutrophils Absolute Auto 4.3 K/mm3 (1.3-6.7); Neutrophils Percent Auto 62.5 % (45.5-73.1); Platelet Count Result 151 k/mm3 (150-375); Red Blood Count 3.45 M/mm3 (4.2-5.4); Red Cell Distribution Width 15.9 % (11.5-14.5); White Blood Count 6.8 K/mm3 (4.5-10.0)
[2024-03-30 10:15] LABS: Add Urine Microscopic? YES; Appearance Urine Turbid (Clear); Bacteria Urine 4+ /hpf; Bilirubin Urine Negative (Negative); Blood Urine 3+ (Negative); Color Urine Dark Yellow (Yellow); Glucose Urine UA Negative (Negative); Ketones Urine Trace mg/dL (Negative); Leukocyte Esterase Ur 1+ LEU/UL (Negative); Nitrate Urine Positive (Negative); Non Pathogenic Casts 0-2; Protein Urine 2+ mg/dL (Negative); RBC Urine >100 /hpf (0-2); Specific Grav Ur 1.024 (1.001-1.035); Squamous Epithelial Cell Urine None Seen /hpf (Few); WBC Urine 51-100 /hpf (0-3)
[2024-03-30 10:18] LABS: Alanine Aminotransferase 13 U/L (6-35); Albumin Level 3.1 g/dL (3.5-5.1); Alkaline Phosphatase 89 U/L (38-126); Anion Gap 6 mmol/L (4-12); Aspartate Amino Transferase 29 U/L (14-36); Bilirubin,Total 0.5 mg/dL (0.2-1.3); Blood Urea Nitrogen 34 mg/dL (7-17); Calcium 9.8 mg/dL (8.4-10.2); Carbon Dioxide 26 mmol/L (22-30); Chloride 107 mmol/L (98-107); Estimated CRCL calculation 50 ml/min; Estimated Glomerular Filt Rate 45; Glucose 81 mg/dL (65-110); Sodium 139 mmol/L (137-145)
--- NOTE | 2024-03-30 10:26 | ED.NAVMDI ---
HPI - Nausea/Vomiting/Diarrhea General Chief complaint: Nausea/Vomiting/Diarrhea Stated complaint: diarrhea Time Seen by Provider: 03/30/24 09:34 History of Present Illness HPI Narrative: Pt presents with numerous episodes of diarhea over the last couple of days. Pt denies vomiting. Pt denies recent antibiotic usage or any abdominal pain. Pt denies fever. Pt describes as liquid and unable to control it and she has soiled herself several times. Related Data Home Medications Medication Instructions Recorded Confirmed diltiazem HCl 120 mg capsule,24 120 mg PO DAILY 06/29/19 03/30/24 hr,extended release metoprolol succinate 25 mg 25 mg PO DAILY 01/25/21 03/30/24 tablet,extended release 24 hr aspirin 81 mg tablet,delayed 81 mg PO DAILY 08/20/22 03/30/24 release cholecalciferol (vitamin D3) 10 2,000 unit PO DAILY 12/17/22 03/30/24 mcg (400 unit) capsule apixaban 5 mg tablet (Eliquis) 5 mg PO BID 03/27/24 03/30/24 insulin degludec 100 unit/mL (3 25 unit subcut DAILY 03/27/24 03/30/24 mL) subcutaneous pen (Tresiba FlexTouch U-100 insulin) risperidone 1 mg tablet 1.5 mg PO BID 03/27/24 03/30/24 acetaminophen 650 mg tablet 650 mg PO Q6H PRN y 03/30/24 03/30/24 Allergies Allergy/AdvReac Type Severity Reaction Status Date / Time Cephalosporins Allergy Unknown Hives Verified 03/30/24 11:14 ciprofloxacin Allergy Unknown Hives Verified 03/30/24 11:14 codeine Allergy Unknown Hives Verified 03/30/24 11:14 erythromycin base Allergy Unknown Hives Verified 03/30/24 11:14 levofloxacin Allergy Unknown Hives Verified 03/30/24 11:14 lidocaine Allergy Unknown Hives Verified 03/30/24 11:14 Macrolide Antibiotics Allergy Unknown Hives Verified 03/30/24 11:14 Quinolones Allergy Unknown Hives Verified 03/30/24 11:14 Sulfa (Sulfonamide Allergy Unknown Hives Verified 03/30/24 11:14 Antibiotics) theophylline Allergy Unknown Hives Verified 03/30/24 11:14 citalopram AdvReac Unknown Agitated Verified 03/30/24 11:14 ALL ASHLEY DRUGS Allergy Mild ITCHING, Uncoded 03/27/24 13:40 BURNING, SWELLING AT SITE Review of Systems Review of Systems: All systems reviewed & are unremarkable except as noted in HPI and below PMFSH Past Medical History Medical History Ascending aortic aneurysm Atrial fibrillation No longer on anticoagulation as of fall 2022 due to history of falls. Chronic kidney disease COVID-19 Depression Essential (primary) hypertension Hyperlipidemia Hypothyroidism Kidney stone Obstructive sleep apnea treated with BiPAP Psoriasis Psoriatic arthritis Spinal stenosis Type 2 diabetes mellitus Vitamin D deficiency Surgical History Surgical History History of bunionectomy History of hysterectomy Family History Family History Sibling Family history of respiratory disorder Family history of diabetes mellitus in first degree relative Family history of congestive heart failure Acute myocardial infarction Mother Family history of chronic obstructive pulmonary disease Family history of congestive heart failure Father Acute myocardial infarction Other Family history of arthritis Family history of malignant neoplasm Family history of mental disorder Hypertension Social History Social History Social History: Surrogate medical decision maker: June Gee or Sienna Kirill, daughters. Code status: Full code. Smoking status: Never smoker Second hand tobacco smoke exposure: Yes Alcohol intake: never Substance use: never Substance use type: does not use Do You Feel Safe in your Home?: Yes Lack of Transportation: No Lack of Food: Never True Current Housing: I Have Housing Concerned About Future Housing: No Diff
[2024-03-30 11:08] LABS: Toxigenic C. Diff NEGATIVE (NEGATIVE)
--- NOTE | 2024-03-30 13:35 | PM.IMHP ---
H&P: HPI History of Present Illness Date/Time: 03/30/24 13:35 Chief Complaint: Diarrhea. Narrative: This is a 67-year-old female with atrial fibrillation on chronic anticoagulation, type 2 diabetes mellitus, hypertension, hypothyroidism, chronic kidney disease, depression, obstructive sleep apnea, cirrhosis, and psoriasis who presented to the emergency department via EMS from home for evaluation of diarrhea. She gives a 2 day history of uncontrollable diarrhea and she is feeling incredibly weak and dehydrated. She also endorses dysuria. This morning while trying to get out of bed she was so weak that she slipped to the floor. She denies fever, chills, sweats, syncope, near syncope, head trauma, injury, chest pain, pleuritic pain, shortness of breath, abdominal pain, back pain, vomiting, diarrhea, hematuria, hematochezia, and melena. No recent travel, antibiotic use, or known sick contacts. She is on magnesium at home and looks like she takes MiraLax daily. In the ED: She was afebrile on arrival with a blood pressure of 94/55. Labs are significant for WBC count of 6.8, hemoglobin 10.6, BUN 34, creatinine 1.20, total protein 6.0, albumin 3.1. Urinalysis was positive for 2+ protein, trace ketones, 3+ blood, nitrates, 1+ leukocyte esterase, greater than 100 RBC, 51 to 100 WBC, and 4+ bacteria. C diff by PCR was negative. She received a L of normal saline and is being admitted in this setting for further treatment. Review of Systems Review of Systems: 12 systems were reviewed and are negative except for as per HPI. [facility] Past Medical History Medical History Ascending aortic aneurysm Atrial fibrillation No longer on anticoagulation as of fall 2022 due to history of falls. Chronic kidney disease COVID-19 Depression Essential (primary) hypertension Hyperlipidemia Hypothyroidism Kidney stone Obstructive sleep apnea treated with BiPAP Psoriasis Psoriatic arthritis Spinal stenosis Type 2 diabetes mellitus Vitamin D deficiency Surgical History Surgical History History of bunionectomy History of hysterectomy Family History Family History Sibling Family history of respiratory disorder Family history of diabetes mellitus in first degree relative Family history of congestive heart failure Acute myocardial infarction Mother Family history of chronic obstructive pulmonary disease Family history of congestive heart failure Father Acute myocardial infarction Other Family history of arthritis Family history of malignant neoplasm Family history of mental disorder Hypertension Social History Social History Social History: Surrogate medical decision maker: June Gee or Sienna Roy, daughters. Code status: Full code. Smoking status: Never smoker Second hand tobacco smoke exposure: Yes Alcohol intake: never Substance use: never Substance use type: does not use Do You Feel Safe in your Home?: Yes Lack of Transportation: No Lack of Food: Never True Current Housing: I Have Housing Concerned About Future Housing: No Difficulty Paying Gas/Electric Bills: No Difficulty Paying for Meds: No Currently Unemployed: No Education: High School Diploma/GED Difficulty w/ Childcare or Family Care: No Additional living arrangements comments: The patient lives in her own home in [place]. Spiritual care concerns: No Meds Home Medications and Allergies Home Medications Medication Instructions Recorded Confirmed Type diltiazem HCl 120 mg capsule,24 120 mg PO DAILY 06/29/19 03/30/24 History hr,extended release metoprolol succinate 25 mg 25 mg PO DAILY 01/25/21 03/30/24 History tablet,extended release 24 hr escitalopram o
[2024-03-30] MEDS: SODIUM CHLORIDE 0.9% IV 1,000 ML 100 ML IV CONT ×2 (15:11→23:27)
[2024-03-30 17:28] LABS: Glucose Point of Care 83 mg/dl (65-105)
[2024-03-30 19:28] LABS: Glucose Point of Care 95 mg/dl (65-105)
[2024-03-30] MEDS: WATER FOR IRRIGATION, STERILE 1,000 ML BOTTLE 1000 ML (19:48)
[2024-03-30] MEDS: risperiDONE 0.5 MG TABLET 1.5 MG PO (23:26)
[2024-03-30] MEDS: busPIRone HCL 10 MG TABLET 30 MG PO (23:26)
[2024-03-30] MEDS: QUEtiapine FUMARATE 100 MG TABLET 300 MG PO (23:26)
[2024-03-30] MEDS: traMADol HCL (*CRX) 50 MG TABLET PO (23:30)
[2024-03-31] VITALS (7 sets, daily range): BP systolic 90–137; BP diastolic 48–77; PULSE 64–98; RESP 16–20; TEMP 36.6–36.7; O2SAT 97–100; BMI 32.6
[2024-03-31] MEDS: WATER FOR IRRIGATION, STERILE 1,000 ML BOTTLE 1000 ML (01:38)
[2024-03-31] MEDS: LEVOTHYROXINE SODIUM 150 MCG TABLET PO (06:07)
[2024-03-31] MEDS: ACETAMINOPHEN 325 MG TABLET 650 MG PO ×2 (06:10→15:14)
[2024-03-31 07:25] LABS: Basophils Percent Auto 0.5 % (0.2-1.2); Eosinophils Absolute Auto 0.2 K/mm3 (0-0.3); Eosinophils Percent Auto 3.1 % (0-4.4); Hematocrit 30.9 % (37.0-47.0); Hemoglobin 9.7 g/dL (12.0-15.0); Immature Granulocyte Absolute 0.01 K/mm3 (0.00-0.031); Immature Granulocyte Percent A 0.2 % (0-0.5); Immature Platelet Fraction Pct 5.3 % (0.9-11.2); Lymphocytes Absolute Auto 1.77 K/mm3 (0.9-3.2); Lymphocytes Percent Auto 30.1 % (18.3-44.2); Mean Corpuscular HGB Conc 31.4 g/dl (32-36); Mean Corpuscular Volume 95.7 fl (80-100); Mean Platelet Volume 11.4 fl (7.4-10.4); Monocytes Absolute Auto 0.6 K/mm3 (0.1-0.6); Monocytes Percent Auto 9.8 % (2.6-8.5); Neutrophils Absolute Auto 3.3 K/mm3 (1.3-6.7); Neutrophils Percent Auto 56.3 % (45.5-73.1); Platelet Count Result 131 k/mm3 (150-375); Red Blood Count 3.23 M/mm3 (4.2-5.4); Red Cell Distribution Width 15.2 % (11.5-14.5); White Blood Count 5.9 K/mm3 (4.5-10.0)
[2024-03-31 07:40] LABS: Anion Gap 2 mmol/L (4-12); Blood Urea Nitrogen 22 mg/dL (7-17); Calcium 9.2 mg/dL (8.4-10.2); Carbon Dioxide 30 mmol/L (22-30); Chloride 106 mmol/L (98-107); Estimated CRCL calculation 73 ml/min; Estimated Glomerular Filt Rate > 60; Glucose 94 mg/dL (65-110); Magnesium 2.1 mg/dL (1.6-2.3); Potassium 4.1 mmol/L (3.4-5.0); Sodium 138 mmol/L (137-145)
[2024-03-31 07:42] LABS: Glucose Point of Care 94 mg/dl (65-105)
[2024-03-31] MEDS: SODIUM CHLORIDE 0.9% IV 1,000 ML 100 ML IV CONT ×2 (09:22→20:00)
[2024-03-31] MEDS: APIXABAN 5 MG TABLET PO ×2 (09:23→21:19)
[2024-03-31] MEDS: METOPROLOL SUCCINATE EXT REL 25 MG TABCR PO (09:24)
[2024-03-31] MEDS: ESCITALOPRAM OXALATE 10 MG TABLET 20 MG PO (09:24)
[2024-03-31] MEDS: busPIRone HCL 10 MG TABLET 30 MG PO ×2 (09:24→17:36)
[2024-03-31] MEDS: CHOLECALCIFEROL 1,000 UNITS TABLET 2000 UNITS PO (09:24)
[2024-03-31] MEDS: ASPIRIN 81 MG ENTERIC TABLET PO (09:24)
[2024-03-31] MEDS: dilTIAZem HCL CD 120 MG CAP.24HR PO (09:24)
[2024-03-31] MEDS: ESCITALOPRAM OXALATE 10 MG TABLET PO (09:24)
[2024-03-31] MEDS: risperiDONE 0.5 MG TABLET 1.5 MG PO ×2 (09:25→17:35)
[2024-03-31] MEDS: QUEtiapine FUMARATE 25 MG TABLET 50 MG PO (09:25)
--- NOTE | 2024-03-31 10:21 | PM.IMPN ---
Progress Note: A&P Assessment and Plan (1) Urinary tract infection: Qualifiers: Hematuria presence: without hematuria Urinary tract infection type: site unspecified Qualified Code(s): N39.0 - Urinary tract infection, site not specified Code(s): N39.0 - Urinary tract infection, site not specified Status: Acute Assessment and Plan: 03/31/24: There UA showed turbid appearance, 2+ urine protein, trace ketone, 3+ urine blood, positive nitrate, 1+ leukocyte, greater than 100 urine RBC, 51-100 urine WBC, 4+ bacteria Urine culture pending Continue Rocephin (2) Dehydration: Code(s): E86.0 - Dehydration Status: Acute Assessment and Plan: 03/31/24: Patient given 1 L of normal saline while in the ED Continue hydration (3) Diarrhea: Code(s): R19.7 - Diarrhea, unspecified Status: Acute Assessment and Plan: 03/31/24: C diff negative Stool culture pending Continue hydration Continue to monitor electrolytes (4) Generalized weakness: Code(s): R53.1 - Weakness Status: Acute Assessment and Plan: 03/31/24: Secondary to dehydration Status post fall PT and OT ordered (5) Type 2 diabetes mellitus: Code(s): E11.9 - Type 2 diabetes mellitus without complications Status: Chronic Assessment and Plan: 03/31/24: Blood sugars ranging 81-94 Hgb A1C 5.7 Accu checks AC/HS Low-dose SSI ordered hypoglycemic protocol in place Diabetic diet ordered (6) Atrial fibrillation: Qualifiers: Atrial fibrillation type: unspecified chronic Qualified Code(s): I48.20 - Chronic atrial fibrillation, unspecified Code(s): I48.91 - Unspecified atrial fibrillation Status: Chronic Assessment and Plan: 03/31/24: Continue metoprolol and Eliquis (7) Essential (primary) hypertension: Code(s): I10 - Essential (primary) hypertension Status: Chronic Assessment and Plan: 03/31/24: Blood pressure ranging 112/59 to 137/77 Continue metoprolol (8) Hypothyroidism: Code(s): E03.9 - Hypothyroidism, unspecified Status: Chronic Assessment and Plan: 03/31/24: Continue Synthroid (9) Obstructive sleep apnea treated with BiPAP: Code(s): G47.33 - Obstructive sleep apnea (adult) (pediatric) Status: Chronic Assessment and Plan: 03/31/24: Continue BiPAP/CPAP with home settings Subjective Date/time seen: 03/31/24 10:21 Interval history: Interval history: This is a 67-year-old female who presented to the hospital on 03/30/2024 with complaints of 2 day history of uncontrollable diarrhea, weakness, fall. Workup in the hospital included a renal ultrasound which shown left nephrolithiasis. Initial labs showed a normal white blood cell count of 6.8, hemoglobin 10.6, creatinine 1.20, EGFR 45. A UA was obtained and shown turbid appearance, 2+ urine protein, trace ketone, 3+ urine blood, positive nitrate, 1+ leukocyte, greater than 100 urine RBC, 51-100 urine WBC, 4+ bacteria. C diff was negative. Urine and stool cultures are pending. Patient was given 1 L of normal saline, and Rocephin while in the ED. Subjective: Patient denies any fever, chills, nausea, vomiting, abdominal pain, chest pain, shortness a breath. Patient endorses diarrhea. Labs and imaging reviewed. Review of Systems Review of Systems: All systems reviewed & are unremarkable except as noted in HPI and below Constitutional: Constitutional: Reports as per HPI and Reports no additional constitutional complaints Eyes: Eyes: Reports as per HPI and Reports no additional eye complaints ENT: Reports system reviewed and no additional complaints, except as documented and Reports as per HPI Cardiovascular: Cardiovascular: Reports as per HPI and Reports no additional cardiovascular complaints Respiratory: Respiratory: Reports as per HPI and Reports no additional respiratory complaints Gastrointestinal: Sanjay
[2024-03-31 11:53] LABS: Glucose Point of Care 151 mg/dl (65-105)
[2024-03-31 16:56] LABS: Glucose Point of Care 130 mg/dl (65-105)
[2024-03-31 20:45] LABS: Glucose Point of Care 176 mg/dl (65-105)
[2024-03-31] MEDS: traMADol HCL (*CRX) 50 MG TABLET PO (21:18)
[2024-03-31] MEDS: QUEtiapine FUMARATE 100 MG TABLET 300 MG PO (21:19)
[2024-03-31] MEDS: INSULIN GLARGINE (*BKC) 100 UNITS/ML 25 UNITS SUB-Q (21:20)
[2024-04-01] MEDS: LEVOTHYROXINE SODIUM 150 MCG TABLET PO (05:47)
[2024-04-01] MEDS: SODIUM CHLORIDE 0.9% IV 1,000 ML 100 ML IV CONT ×2 (05:49→16:24)
[2024-04-01 06:00] VITALS: BP 129/59; PULSE 69; RESP 18; TEMP 36.7; O2SAT 100
[2024-04-01 08:00] VITALS: O2SAT 94
[2024-04-01 08:09] LABS: Glucose Point of Care 101 mg/dl (65-105)
[2024-04-01] MEDS: ESCITALOPRAM OXALATE 10 MG TABLET PO (08:47)
[2024-04-01] MEDS: dilTIAZem HCL CD 120 MG CAP.24HR PO (08:47)
[2024-04-01] MEDS: busPIRone HCL 10 MG TABLET 30 MG PO ×2 (08:48→16:25)
[2024-04-01] MEDS: CHOLECALCIFEROL 1,000 UNITS TABLET 2000 UNITS PO (08:48)
[2024-04-01] MEDS: risperiDONE 0.5 MG TABLET 1.5 MG PO ×2 (08:48→16:25)
[2024-04-01] MEDS: QUEtiapine FUMARATE 25 MG TABLET 50 MG PO (08:48)
[2024-04-01] MEDS: METOPROLOL SUCCINATE EXT REL 25 MG TABCR PO (08:48)
[2024-04-01] MEDS: ASPIRIN 81 MG ENTERIC TABLET PO (08:48)
[2024-04-01] MEDS: ESCITALOPRAM OXALATE 10 MG TABLET 20 MG PO (08:49)
[2024-04-01] MEDS: APIXABAN 5 MG TABLET PO ×2 (08:49→20:43)
[2024-04-01] MEDS: PSYLLIUM POWDER PACKET 1 PACKET PO (08:54)
[2024-04-01] MEDS: ACETAMINOPHEN 325 MG TABLET 650 MG PO (10:33)
[2024-04-01 11:40] LABS: Glucose Point of Care 107 mg/dl (65-105)
[2024-04-01 14:00] VITALS: BP 121/61; PULSE 65; RESP 20; TEMP 36.3; O2SAT 100
[2024-04-01] MEDS: traMADol HCL (*CRX) 50 MG TABLET PO ×2 (15:30→21:44)
--- NOTE | 2024-04-01 15:53 | P.PNIM_ITS ---
Progress Note: A&P Assessment and Plan (1) Urinary tract infection: Qualifiers: Hematuria presence: without hematuria Urinary tract infection type: site unspecified Qualified Code(s): N39.0 - Urinary tract infection, site not specified Code(s): N39.0 - Urinary tract infection, site not specified Status: Acute Assessment and Plan: 03/31/24: * There UA showed turbid appearance, 2+ urine protein, trace ketone, 3+ urine blood, positive nitrate, 1+ leukocyte, greater than 100 urine RBC, 51-100 urine WBC, 4+ bacteria * Urine culture pending * Continue Rocephin 04/01/24: * Urine culture still pending * Continue Rocephin (2) Dehydration: Code(s): E86.0 - Dehydration Status: Acute Assessment and Plan: 03/31/24: * Patient given 1 L of normal saline while in the ED * Continue hydration 04/01/24: * No change to current treatment plan (3) Diarrhea: Code(s): R19.7 - Diarrhea, unspecified Status: Acute Assessment and Plan: 03/31/24: * C diff negative * Stool culture pending * Continue hydration * Continue to monitor electrolytes 04/01/24: * Stool culture negative for E coli and Campylobacter antigen assay, salmonella/shigella culture pending * Continue to monitor electrolytes * Will start Imodium * Continue rectal tube for now (4) Generalized weakness: Code(s): R53.1 - Weakness Status: Acute Assessment and Plan: 03/31/24: * Secondary to dehydration * Status post fall * PT and OT ordered 04/01/24: * No change to current treatment plan (5) Type 2 diabetes mellitus: Code(s): E11.9 - Type 2 diabetes mellitus without complications Status: Chronic Assessment and Plan: 03/31/24: * Blood sugars ranging 81-94 * Hgb A1C 5.7 * Accu checks AC/HS * Low-dose SSI ordered * hypoglycemic protocol in place * Diabetic diet ordered 04/01/24: * no change to current treatment plan (6) Atrial fibrillation: Qualifiers: Atrial fibrillation type: unspecified chronic Qualified Code(s): I48.20 - Chronic atrial fibrillation, unspecified Code(s): I48.91 - Unspecified atrial fibrillation Status: Chronic Assessment and Plan: 03/31/24: * Continue metoprolol and Eliquis 04/01/24: * No change to current treatment plan (7) Essential (primary) hypertension: Code(s): I10 - Essential (primary) hypertension Status: Chronic Assessment and Plan: 03/31/24: * Blood pressure ranging 112/59 to 137/77 * Continue metoprolol 04/01/24: * No change to current treatment plan (8) Hypothyroidism: Code(s): E03.9 - Hypothyroidism, unspecified Status: Chronic Assessment and Plan: 03/31/24: * Continue Synthroid 04/01/24: * No change to current treatment plan (9) Obstructive sleep apnea treated with BiPAP: Code(s): G47.33 - Obstructive sleep apnea (adult) (pediatric) Status: Chronic Assessment and Plan: 03/31/24: * Continue BiPAP/CPAP with home settings 04/01/24: * No change to current treatment plan Time Spent With Patient Time with patient: 25 - 35 minutes Subjective Date/time seen: 04/01/24 15:53 Interval history: Interval history: This is a 67-year-old female who presented to the hospital on 03/30/2024 with complaints of 2 day history of uncontrollable diarrhea, weakness, fall. Workup in the hospital included a renal ultrasound which shown left nephr
--- NOTE | 2024-04-01 15:53 | PM.IMPN ---
Progress Note: A&P Assessment and Plan (1) Urinary tract infection: Qualifiers: Hematuria presence: without hematuria Urinary tract infection type: site unspecified Qualified Code(s): N39.0 - Urinary tract infection, site not specified Code(s): N39.0 - Urinary tract infection, site not specified Status: Acute Assessment and Plan: 03/31/24: There UA showed turbid appearance, 2+ urine protein, trace ketone, 3+ urine blood, positive nitrate, 1+ leukocyte, greater than 100 urine RBC, 51-100 urine WBC, 4+ bacteria Urine culture pending Continue Rocephin 04/01/24: Urine culture still pending Continue Rocephin (2) Dehydration: Code(s): E86.0 - Dehydration Status: Acute Assessment and Plan: 03/31/24: Patient given 1 L of normal saline while in the ED Continue hydration 04/01/24: No change to current treatment plan (3) Diarrhea: Code(s): R19.7 - Diarrhea, unspecified Status: Acute Assessment and Plan: 03/31/24: C diff negative Stool culture pending Continue hydration Continue to monitor electrolytes 04/01/24: Stool culture negative for E coli and Campylobacter antigen assay, salmonella/shigella culture pending Continue to monitor electrolytes Will start Imodium Continue rectal tube for now (4) Generalized weakness: Code(s): R53.1 - Weakness Status: Acute Assessment and Plan: 03/31/24: Secondary to dehydration Status post fall PT and OT ordered 04/01/24: No change to current treatment plan (5) Type 2 diabetes mellitus: Code(s): E11.9 - Type 2 diabetes mellitus without complications Status: Chronic Assessment and Plan: 03/31/24: Blood sugars ranging 81-94 Hgb A1C 5.7 Accu checks AC/HS Low-dose SSI ordered hypoglycemic protocol in place Diabetic diet ordered 04/01/24: no change to current treatment plan (6) Atrial fibrillation: Qualifiers: Atrial fibrillation type: unspecified chronic Qualified Code(s): I48.20 - Chronic atrial fibrillation, unspecified Code(s): I48.91 - Unspecified atrial fibrillation Status: Chronic Assessment and Plan: 03/31/24: Continue metoprolol and Eliquis 04/01/24: No change to current treatment plan (7) Essential (primary) hypertension: Code(s): I10 - Essential (primary) hypertension Status: Chronic Assessment and Plan: 03/31/24: Blood pressure ranging 112/59 to 137/77 Continue metoprolol 04/01/24: No change to current treatment plan (8) Hypothyroidism: Code(s): E03.9 - Hypothyroidism, unspecified Status: Chronic Assessment and Plan: 03/31/24: Continue Synthroid 04/01/24: No change to current treatment plan (9) Obstructive sleep apnea treated with BiPAP: Code(s): G47.33 - Obstructive sleep apnea (adult) (pediatric) Status: Chronic Assessment and Plan: 03/31/24: Continue BiPAP/CPAP with home settings 04/01/24: No change to current treatment plan Time Spent With Patient Time with patient: 25 - 35 minutes Subjective Date/time seen: 04/01/24 15:53 Interval history: Interval history: This is a 67-year-old female who presented to the hospital on 03/30/2024 with complaints of 2 day history of uncontrollable diarrhea, weakness, fall. Workup in the hospital included a renal ultrasound which shown left nephrolithiasis. Initial labs showed a normal white blood cell count of 6.8, hemoglobin 10.6, creatinine 1.20, EGFR 45. A UA was obtained and shown turbid appearance, 2+ urine protein, trace ketone, 3+ urine blood, positive nitrate, 1+ leukocyte, greater than 100 urine RBC, 51-100 urine WBC, 4+ bacteria. C diff was negative. Urine and stool cultures are pending. Patient was given 1 L of normal saline, and Rocephin while in the ED. Subjective: No new complaints, labs reviewed. Still having diarrhea today. Review of Systems Review of Systems: 1
[2024-04-01 16:10] LABS: Basophils Percent Auto 0.4 % (0.2-1.2); Eosinophils Absolute Auto 0.2 K/mm3 (0-0.3); Eosinophils Percent Auto 3.3 % (0-4.4); Hematocrit 30.4 % (37.0-47.0); Hemoglobin 9.6 g/dL (12.0-15.0); Immature Granulocyte Absolute 0.01 K/mm3 (0.00-0.031); Immature Granulocyte Percent A 0.2 % (0-0.5); Lymphocytes Absolute Auto 1.05 K/mm3 (0.9-3.2); Lymphocytes Percent Auto 23.1 % (18.3-44.2); Mean Corpuscular HGB Conc 31.6 g/dl (32-36); Mean Corpuscular Hemoglobin 30.1 pg (26-34); Mean Corpuscular Volume 95.3 fl (80-100); Mean Platelet Volume 10.7 fl (7.4-10.4); Monocytes Absolute Auto 0.4 K/mm3 (0.1-0.6); Monocytes Percent Auto 8.6 % (2.6-8.5); Neutrophils Absolute Auto 2.9 K/mm3 (1.3-6.7); Neutrophils Percent Auto 64.4 % (45.5-73.1); Platelet Count Result 149 k/mm3 (150-375); Red Blood Count 3.19 M/mm3 (4.2-5.4); Red Cell Distribution Width 14.9 % (11.5-14.5); White Blood Count 4.6 K/mm3 (4.5-10.0)
[2024-04-01 16:24] LABS: Alanine Aminotransferase 12 U/L (6-35); Albumin Level 2.6 g/dL (3.5-5.1); Alkaline Phosphatase 68 U/L (38-126); Anion Gap 1 mmol/L (4-12); Aspartate Amino Transferase 29 U/L (14-36); Bilirubin,Total 0.2 mg/dL (0.2-1.3); Blood Urea Nitrogen 14 mg/dL (7-17); Calcium 8.8 mg/dL (8.4-10.2); Carbon Dioxide 29 mmol/L (22-30); Chloride 106 mmol/L (98-107); Estimated CRCL calculation 82 ml/min; Estimated Glomerular Filt Rate > 60; Glucose 133 mg/dL (65-110); Potassium 3.8 mmol/L (3.4-5.0); Sodium 136 mmol/L (137-145)
[2024-04-01 17:06] LABS: Glucose Point of Care 127 mg/dl (65-105)
[2024-04-01] MEDS: LOPERAMIDE HCL 2 MG CAPSULE PO ×2 (18:20→23:29)
[2024-04-01 20:00] VITALS: O2SAT 100
[2024-04-01] MEDS: QUEtiapine FUMARATE 100 MG TABLET 300 MG PO (20:42)
[2024-04-01] MEDS: INSULIN GLARGINE (*BKC) 100 UNITS/ML 25 UNITS SUB-Q (20:49)
[2024-04-01 21:01] LABS: Glucose Point of Care 121 mg/dl (65-105)
[2024-04-01 21:53] VITALS: BP 129/58; PULSE 97; RESP 16; TEMP 36.2; O2SAT 100
[2024-04-01] MEDS: MELATONIN 3 MG TABLET PO (23:29)
[2024-04-02] MEDS: SODIUM CHLORIDE 0.9% IV 1,000 ML 100 ML IV CONT ×3 (02:31→23:55)
[2024-04-02] MEDS: LEVOTHYROXINE SODIUM 150 MCG TABLET PO (05:49)
[2024-04-02] MEDS: LOPERAMIDE HCL 2 MG CAPSULE PO ×3 (05:49→16:17)
[2024-04-02 06:00] VITALS: BP 123/62; PULSE 64; RESP 14; TEMP 36; O2SAT 98
[2024-04-02 07:12] LABS: Basophils Percent Auto 0.4 % (0.2-1.2); Eosinophils Absolute Auto 0.2 K/mm3 (0-0.3); Eosinophils Percent Auto 3.5 % (0-4.4); Hematocrit 29.4 % (37.0-47.0); Hemoglobin 9.2 g/dL (12.0-15.0); Immature Granulocyte Absolute 0.02 K/mm3 (0.00-0.031); Immature Granulocyte Percent A 0.4 % (0-0.5); Lymphocytes Absolute Auto 1.61 K/mm3 (0.9-3.2); Lymphocytes Percent Auto 33.3 % (18.3-44.2); Mean Corpuscular HGB Conc 31.3 g/dl (32-36); Mean Corpuscular Hemoglobin 29.9 pg (26-34); Mean Corpuscular Volume 95.5 fl (80-100); Mean Platelet Volume 11.2 fl (7.4-10.4); Monocytes Absolute Auto 0.5 K/mm3 (0.1-0.6); Monocytes Percent Auto 9.3 % (2.6-8.5); Neutrophils Absolute Auto 2.6 K/mm3 (1.3-6.7); Neutrophils Percent Auto 53.1 % (45.5-73.1); Platelet Count Result 153 k/mm3 (150-375); Red Blood Count 3.08 M/mm3 (4.2-5.4); Red Cell Distribution Width 15.1 % (11.5-14.5); White Blood Count 4.8 K/mm3 (4.5-10.0)
[2024-04-02 07:27] LABS: Glucose Point of Care 105 mg/dl (65-105)
[2024-04-02 07:30] LABS: Alanine Aminotransferase 11 U/L (6-35); Albumin Level 2.4 g/dL (3.5-5.1); Alkaline Phosphatase 65 U/L (38-126); Anion Gap 1 mmol/L (4-12); Aspartate Amino Transferase 26 U/L (14-36); Bilirubin,Total 0.1 mg/dL (0.2-1.3); Blood Urea Nitrogen 12 mg/dL (7-17); Carbon Dioxide 30 mmol/L (22-30); Chloride 106 mmol/L (98-107); Estimated CRCL calculation 83 ml/min; Estimated Glomerular Filt Rate > 60; Glucose 110 mg/dL (65-110); Potassium 3.5 mmol/L (3.4-5.0); Sodium 137 mmol/L (137-145)
[2024-04-02 09:10] VITALS: O2SAT 95
[2024-04-02] MEDS: QUEtiapine FUMARATE 25 MG TABLET 50 MG PO (09:23)
[2024-04-02] MEDS: risperiDONE 0.5 MG TABLET 1.5 MG PO ×2 (09:23→16:17)
[2024-04-02] MEDS: PSYLLIUM POWDER PACKET 1 PACKET PO (09:23)
[2024-04-02] MEDS: CHOLECALCIFEROL 1,000 UNITS TABLET 2000 UNITS PO (09:23)
[2024-04-02] MEDS: METOPROLOL SUCCINATE EXT REL 25 MG TABCR PO (09:24)
[2024-04-02] MEDS: ESCITALOPRAM OXALATE 10 MG TABLET 20 MG PO (09:24)
[2024-04-02] MEDS: ESCITALOPRAM OXALATE 10 MG TABLET PO (09:24)
[2024-04-02] MEDS: APIXABAN 5 MG TABLET PO ×2 (09:24→19:56)
[2024-04-02] MEDS: ASPIRIN 81 MG ENTERIC TABLET PO (09:25)
[2024-04-02] MEDS: busPIRone HCL 10 MG TABLET 30 MG PO ×2 (09:26→16:17)
--- NOTE | 2024-04-02 09:26 | PCPTNOTE ---
Attempted PT evaluation. Pt refused stating maybe later. Therapist and RN (present during refusal) tried to encourage pt to participate in OOB activity. Pt continued to refuse. Will follow.
[2024-04-02] MEDS: dilTIAZem HCL CD 120 MG CAP.24HR PO (09:30)
[2024-04-02 12:20] LABS: Glucose Point of Care 103 mg/dl (65-105)
--- NOTE | 2024-04-02 13:18 | P.PNIM_ITS ---
Progress Note: A&P Assessment and Plan (1) Urinary tract infection: Qualifiers: Hematuria presence: without hematuria Urinary tract infection type: site unspecified Qualified Code(s): N39.0 - Urinary tract infection, site not specified Code(s): N39.0 - Urinary tract infection, site not specified Status: Acute Assessment and Plan: 03/31/24: * There UA showed turbid appearance, 2+ urine protein, trace ketone, 3+ urine blood, positive nitrate, 1+ leukocyte, greater than 100 urine RBC, 51-100 urine WBC, 4+ bacteria * Urine culture pending * Continue Rocephin 04/01/24: * Urine culture still pending * Continue Rocephin 04/02/24: * Urine culture showing E coli on final read * Rocephin changed to cefdinir starting tomorrow (2) Dehydration: Code(s): E86.0 - Dehydration Status: Acute Assessment and Plan: 03/31/24: * Patient given 1 L of normal saline while in the ED * Continue hydration 04/01/24: * No change to current treatment plan 04/02/24: * DC IV fluids (3) Diarrhea: Code(s): R19.7 - Diarrhea, unspecified Status: Acute Assessment and Plan: 03/31/24: * C diff negative * Stool culture pending * Continue hydration * Continue to monitor electrolytes 04/01/24: * Stool culture negative for E coli and Campylobacter antigen assay, salmonella/shigella culture pending * Continue to monitor electrolytes * Will start Imodium * Continue rectal tube for now 04/02/24: * Continue Imodium * Rectal tube discontinued * Patient still having multiple stools * Will try dose of Bentyl to help slow down diarrhea (4) Generalized weakness: Code(s): R53.1 - Weakness Status: Acute Assessment and Plan: 03/31/24: * Secondary to dehydration * Status post fall * PT and OT ordered 04/01/24: * No change to current treatment plan (5) Type 2 diabetes mellitus: Code(s): E11.9 - Type 2 diabetes mellitus without complications Status: Chronic Assessment and Plan: 03/31/24: * Blood sugars ranging 81-94 * Hgb A1C 5.7 * Accu checks AC/HS * Low-dose SSI ordered * hypoglycemic protocol in place * Diabetic diet ordered 04/01/24: * no change to current treatment plan (6) Atrial fibrillation: Qualifiers: Atrial fibrillation type: unspecified chronic Qualified Code(s): I48.20 - Chronic atrial fibrillation, unspecified Code(s): I48.91 - Unspecified atrial fibrillation Status: Chronic Assessment and Plan: 03/31/24: * Continue metoprolol and Eliquis 04/01/24: * No change to current treatment plan (7) Essential (primary) hypertension: Code(s): I10 - Essential (primary) hypertension Status: Chronic Assessment and Plan: 03/31/24: * Blood pressure ranging 112/59 to 137/77 * Continue metoprolol 04/01/24: * No change to current treatment plan (8) Hypothyroidism: Code(s): E03.9 - Hypothyroidism, unspecified Status: Chronic Assessment and Plan: 03/31/24: * Continue Synthroid 04/01/24: * No change to current treatment plan (9) Obstructive sleep apnea treated with BiPAP: Code(s): G47.33 - Obstructive sleep apnea (adult) (pediatric) Status: Chronic Assessment and Plan: 03/31/24: * Continue BiPAP/CPAP with home settings 04/01/24: * No change to current treatment plan Time Spent With Patient Time with patient: 25 - 35 minutes Sub
--- NOTE | 2024-04-02 13:18 | PM.IMPN ---
Progress Note: A&P Assessment and Plan (1) Urinary tract infection: Qualifiers: Hematuria presence: without hematuria Urinary tract infection type: site unspecified Qualified Code(s): N39.0 - Urinary tract infection, site not specified Code(s): N39.0 - Urinary tract infection, site not specified Status: Acute Assessment and Plan: 03/31/24: There UA showed turbid appearance, 2+ urine protein, trace ketone, 3+ urine blood, positive nitrate, 1+ leukocyte, greater than 100 urine RBC, 51-100 urine WBC, 4+ bacteria Urine culture pending Continue Rocephin 04/01/24: Urine culture still pending Continue Rocephin 04/02/24: Urine culture showing E coli on final read Rocephin changed to cefdinir starting tomorrow (2) Dehydration: Code(s): E86.0 - Dehydration Status: Acute Assessment and Plan: 03/31/24: Patient given 1 L of normal saline while in the ED Continue hydration 04/01/24: No change to current treatment plan 04/02/24: DC IV fluids (3) Diarrhea: Code(s): R19.7 - Diarrhea, unspecified Status: Acute Assessment and Plan: 03/31/24: C diff negative Stool culture pending Continue hydration Continue to monitor electrolytes 04/01/24: Stool culture negative for E coli and Campylobacter antigen assay, salmonella/shigella culture pending Continue to monitor electrolytes Will start Imodium Continue rectal tube for now 04/02/24: Continue Imodium Rectal tube discontinued Patient still having multiple stools Will try dose of Bentyl to help slow down diarrhea (4) Generalized weakness: Code(s): R53.1 - Weakness Status: Acute Assessment and Plan: 03/31/24: Secondary to dehydration Status post fall PT and OT ordered 04/01/24: No change to current treatment plan (5) Type 2 diabetes mellitus: Code(s): E11.9 - Type 2 diabetes mellitus without complications Status: Chronic Assessment and Plan: 03/31/24: Blood sugars ranging 81-94 Hgb A1C 5.7 Accu checks AC/HS Low-dose SSI ordered hypoglycemic protocol in place Diabetic diet ordered 04/01/24: no change to current treatment plan (6) Atrial fibrillation: Qualifiers: Atrial fibrillation type: unspecified chronic Qualified Code(s): I48.20 - Chronic atrial fibrillation, unspecified Code(s): I48.91 - Unspecified atrial fibrillation Status: Chronic Assessment and Plan: 03/31/24: Continue metoprolol and Eliquis 04/01/24: No change to current treatment plan (7) Essential (primary) hypertension: Code(s): I10 - Essential (primary) hypertension Status: Chronic Assessment and Plan: 03/31/24: Blood pressure ranging 112/59 to 137/77 Continue metoprolol 04/01/24: No change to current treatment plan (8) Hypothyroidism: Code(s): E03.9 - Hypothyroidism, unspecified Status: Chronic Assessment and Plan: 03/31/24: Continue Synthroid 04/01/24: No change to current treatment plan (9) Obstructive sleep apnea treated with BiPAP: Code(s): G47.33 - Obstructive sleep apnea (adult) (pediatric) Status: Chronic Assessment and Plan: 03/31/24: Continue BiPAP/CPAP with home settings 04/01/24: No change to current treatment plan Time Spent With Patient Time with patient: 25 - 35 minutes Subjective Date/time seen: 04/02/24 13:18 Interval history: Interval history: This is a 67-year-old female who presented to the hospital on 03/30/2024 with complaints of 2 day history of uncontrollable diarrhea, weakness, fall. Workup in the hospital included a renal ultrasound which shown left nephrolithiasis. Initial labs showed a normal white blood cell count of 6.8, hemoglobin 10.6, creatinine 1.20, EGFR 45. A UA was obtained and shown turbid appearance, 2+ urine protein, trace ketone, 3+ urine blood, positive nitrate, 1+ leukocyte, greater than 100 urine RBC, 51-100
--- NOTE | 2024-04-02 13:48 | PCOTNOTE ---
Attempted to see Patient for OT treatment session at this time. Patient adamently refused to participate in any activities and stated she told someone else the same thing, just leave me alone .
[2024-04-02 14:00] VITALS: BP 109/60; PULSE 69; RESP 18; TEMP 35.6; O2SAT 90
[2024-04-02] MEDS: ACETAMINOPHEN 325 MG TABLET 650 MG PO (15:38)
[2024-04-02 17:00] LABS: Glucose Point of Care 128 mg/dl (65-105)
[2024-04-02] MEDS: DICYCLOMINE HCL 10 MG CAPSULE 20 MG PO (18:14)
[2024-04-02] MEDS: QUEtiapine FUMARATE 100 MG TABLET 300 MG PO (19:56)
[2024-04-02 20:00] VITALS: BP 126/73; BP 126/82; BP 99/52; PULSE 62; PULSE 71; PULSE 96; RESP 18; RESP 20; TEMP 36.3; O2SAT 100; O2SAT 98
[2024-04-02 20:47] LABS: Glucose Point of Care 132 mg/dl (65-105)
[2024-04-02 21:19] VITALS: BP 126/73; PULSE 62; RESP 18; TEMP 36.3; O2SAT 100
[2024-04-02] MEDS: traMADol HCL (*CRX) 50 MG TABLET PO (21:46)
[2024-04-02] MEDS: MELATONIN 3 MG TABLET PO (21:46)
[2024-04-02 23:08] VITALS: PULSE 62; O2SAT 100
[2024-04-03 05:42] VITALS: BP 123/66; PULSE 63; RESP 20; TEMP 36.3; O2SAT 95
[2024-04-03] MEDS: LEVOTHYROXINE SODIUM 150 MCG TABLET PO (06:35)
[2024-04-03] MEDS: LOPERAMIDE HCL 2 MG CAPSULE PO ×3 (06:35→16:20)
[2024-04-03 06:38] LABS: Basophils Percent Auto 0.5 % (0.2-1.2); Eosinophils Absolute Auto 0.2 K/mm3 (0-0.3); Eosinophils Percent Auto 4.3 % (0-4.4); Hematocrit 28.9 % (37.0-47.0); Hemoglobin 9.1 g/dL (12.0-15.0); Immature Granulocyte Absolute 0.01 K/mm3 (0.00-0.031); Immature Granulocyte Percent A 0.3 % (0-0.5); Lymphocytes Absolute Auto 1.92 K/mm3 (0.9-3.2); Lymphocytes Percent Auto 48.7 % (18.3-44.2); Mean Corpuscular HGB Conc 31.5 g/dl (32-36); Mean Corpuscular Hemoglobin 30.2 pg (26-34); Monocytes Absolute Auto 0.4 K/mm3 (0.1-0.6); Monocytes Percent Auto 8.9 % (2.6-8.5); Neutrophils Absolute Auto 1.5 K/mm3 (1.3-6.7); Neutrophils Percent Auto 37.3 % (45.5-73.1); Platelet Count Result 159 k/mm3 (150-375); Red Blood Count 3.01 M/mm3 (4.2-5.4); Red Cell Distribution Width 15.2 % (11.5-14.5); White Blood Count 3.9 K/mm3 (4.5-10.0)
[2024-04-03 06:56] LABS: Alanine Aminotransferase 10 U/L (6-35); Albumin Level 2.4 g/dL (3.5-5.1); Alkaline Phosphatase 61 U/L (38-126); Anion Gap 1 mmol/L (4-12); Aspartate Amino Transferase 24 U/L (14-36); Bilirubin,Total 0.2 mg/dL (0.2-1.3); Blood Urea Nitrogen 13 mg/dL (7-17); Calcium 9.2 mg/dL (8.4-10.2); Carbon Dioxide 30 mmol/L (22-30); Chloride 106 mmol/L (98-107); Estimated CRCL calculation 84 ml/min; Estimated Glomerular Filt Rate > 60; Glucose 146 mg/dL (65-110); Potassium 3.8 mmol/L (3.4-5.0); Sodium 137 mmol/L (137-145)
[2024-04-03 08:00] VITALS: BP 131/61; PULSE 67; RESP 14; TEMP 35.9; O2SAT 98
[2024-04-03 08:08] LABS: Glucose Point of Care 145 mg/dl (65-105)
[2024-04-03] MEDS: risperiDONE 0.5 MG TABLET 1.5 MG PO ×2 (08:42→16:20)
[2024-04-03] MEDS: PSYLLIUM POWDER PACKET 1 PACKET PO (08:42)
[2024-04-03] MEDS: CEFDINIR 300 MG CAPSULE PO (08:42)
[2024-04-03] MEDS: APIXABAN 5 MG TABLET PO (08:42)
[2024-04-03] MEDS: QUEtiapine FUMARATE 25 MG TABLET 50 MG PO (08:43)
[2024-04-03 08:44] VITALS: PULSE 67
[2024-04-03] MEDS: ESCITALOPRAM OXALATE 10 MG TABLET PO (08:44)
[2024-04-03] MEDS: ASPIRIN 81 MG ENTERIC TABLET PO (08:44)
[2024-04-03] MEDS: METOPROLOL SUCCINATE EXT REL 25 MG TABCR PO (08:44)
[2024-04-03] MEDS: busPIRone HCL 10 MG TABLET 30 MG PO ×2 (08:44→16:20)
[2024-04-03] MEDS: ESCITALOPRAM OXALATE 10 MG TABLET 20 MG PO (08:45)
[2024-04-03] MEDS: dilTIAZem HCL CD 120 MG CAP.24HR PO (08:45)
[2024-04-03] MEDS: CHOLECALCIFEROL 1,000 UNITS TABLET 2000 UNITS PO (08:45)
[2024-04-03 11:37] LABS: Glucose Point of Care 175 mg/dl (65-105)
[2024-04-03 14:00] VITALS: BP 112/48; PULSE 59; RESP 14; TEMP 35.7; O2SAT 98
--- NOTE | 2024-04-03 17:38 | PM.DS ---
DS: Admitting Diagnosis Discharge Date 04/03/24 Admitting Diagnosis Dehydration Diarrhea Urinary tract infection Generalized weakness Obstructive sleep apnea Type 2 diabetes mellitus Atrial fibrillation Chronic kidney disease stage IIIA Essential hypertension Hyperlipidemia Hypothyroidism DS: Summary Hospital Course Reason for hospitalization: Dehydration Diarrhea Urinary tract infection Generalized weakness Obstructive sleep apnea Type 2 diabetes mellitus Atrial fibrillation Chronic kidney disease stage IIIA Essential hypertension Hyperlipidemia Hypothyroidism Hospital Course: Final diagnosis: Dehydration, urinary tract infection, noninfectious diarrhea Time Spent with Patient Time attestation: Total time spent providing and/or coordinating discharge services: DS: Data Data Completed and Pending Labs on day of discharge: Labs from last 24 hours 04/03/24 04/03/24 04/03/24 11:33 07:21 05:56 WBC 3.9 L RBC 3.01 L Hgb 9.1 L Hct 28.9 L MCV 96.0 MCH 30.2 MCHC 31.5 L RDW 15.2 H Plt Count 159 MPV 11.0 H Immature Gran % (Auto) 0.3 Neut % (Auto) 37.3 L Lymph % (Auto) 48.7 H [place] % (Auto) 8.9 H Eos % (Auto) 4.3 Baso % (Auto) 0.5 Lymph # (Auto) 1.92 [place] # (Auto) 0.4 Eos # (Auto) 0.2 Baso # (Auto) 0.0 Abs Immat Gran (auto) 0.01 Absolute Neuts (auto) 1.5 Absolute Nucleated RBC 0.000 Nucleated RBC % 0.0 Sodium 137 Potassium 3.8 Chloride 106 Carbon Dioxide 30 Anion Gap 1 L BUN 13 Creatinine 0.70 Estim Creat Clear Calc 84 Estimated GFR > 60 Glucose 146 H POC Capillary Glucose 175 H 145 H Calcium 9.2 Total Bilirubin 0.2 AST 24 ALT 10 Alkaline Phosphatase 61 Total Protein 5.0 L Albumin 2.4 L 04/02/24 20:35 WBC RBC Hgb Hct MCV MCH MCHC RDW Plt Count MPV Immature Gran % (Auto) Neut % (Auto) Lymph % (Auto) [place] % (Auto) Eos % (Auto) Baso % (Auto) Lymph # (Auto) [place] # (Auto) Eos # (Auto) Baso # (Auto) Abs Immat Gran (auto) Absolute Neuts (auto) Absolute Nucleated RBC Nucleated RBC % Sodium Potassium Chloride Carbon Dioxide Anion Gap BUN Creatinine Estim Creat Clear Calc Estimated GFR Glucose POC Capillary Glucose 132 H Calcium Total Bilirubin AST ALT Alkaline Phosphatase Total Protein Albumin Discharge Plan Discharge Attending physician on discharge: Loida Ayon Consulting providers: Deirdre Douglas Discharging Clinician: Deirdre Douglas Anticipated Discharge Date/Time: 04/03/24 17:33 Patient Disposition: SNF Activity: as tolerated Diet: as tolerated Discharge Instructions: Finish all your antibiotic as directed even if your feeling better Will follow-up with primary care doctor in 1 week Continue using Imodium for your diarrhea Patient Instructions: Antibiotic Form, Apixaban (By mouth), Heart Failure (DC) Patient Language: Polish Stand Alone Forms: General Discharge Information Follow-up/Referrals: Jhoana Masters APRN [Primary Care Provider] - 2 Weeks Discharge Medications: New loperamide 2 mg Capsule 2 mg PO Q6HR Qty: 30 0RF tramadol 50 mg Tablet 50 mg PO Q6H PRN (Reason: pain 4-6) Qty: 20 0RF cefdinir 300 mg capsule 300 mg PO Q12H Qty: 6 0RF Continued diltiazem HCl 120 mg capsule,extended release 24 hr 120 mg PO DAILY metoprolol succinate 25 mg tablet extended release 24 hr 25 mg PO DAILY cholecalciferol (vitamin D3) 10 mcg (400 unit) capsule 2,000 unit PO DAILY (DME) spirometers and accessories Device See Rx Instructions .Route Qty: 1 0RF Rx Instructions: As directed Eliquis 5 mg tablet 5 mg PO BID insulin degludec [Tresiba FlexTouch U-100] 100 unit/mL (3 mL) insulin pen 25 unit subcut DAILY Rx Instructions: Inject 25 units subcutaneously every day at bedtime risperid
[2024-04-04 07:44] LABS: Glucose Point of Care 164 mg/dl (65-105)
== END 2024-04-03 18:36 | DRG 690 ==
LOC: ANHED 13:29 → ANH3MEDSUR 14:17
PROVIDERS: Nurse Practitioner Acute Care; Physician Assistant; Admitting Provider General Practice; Emergency Provider Emergency Medicine; PCP Nurse Practitioner Family; Visit Provider Nurse Practitioner Acute Care
DX: N39.0 Urinary tract infection, site not specified (principal); I48.20 Chronic atrial fibrillation, unspecified; E86.0 Dehydration; K52.9 Noninfective gastroenteritis and colitis, unspecified; I71.21 Aneurysm of the ascending aorta, without rupture; I12.9 Hypertensive chronic kidney disease with stage 1 through stage 4 chronic kidney disease, or unspecified chronic kidney disease; N18.31 Chronic kidney disease, stage 3a; E11.22 Type 2 diabetes mellitus with diabetic chronic kidney disease; E78.5 Hyperlipidemia, unspecified; E03.9 Hypothyroidism, unspecified; E55.9 Vitamin D deficiency, unspecified; L40.50 Arthropathic psoriasis, unspecified; B96.20 Unspecified Escherichia coli [E. coli] as the cause of diseases classified elsewhere; G47.33 Obstructive sleep apnea (adult) (pediatric); M48.00 Spinal stenosis, site unspecified; F32.A Depression, unspecified; Z79.82 Long term (current) use of aspirin; Z79.4 Long term (current) use of insulin; Z87.442 Personal history of urinary calculi; Z79.01 Long term (current) use of anticoagulants
CPT/HCPCS: 36415; 76775; 80048; 80053; 81001; 82948; 83735; 85025; 85055; 87045; 87077; 87086; 87088; 87186; 87427; 87449; 87493; 89055; 96361; 96365; 96366; 97161; 97165; 97530; 97535; 99285; A9270; G0378; J0696; J1815; J7030

== ENCOUNTER 2024-07-05 10:40 | Inpatient (IN) | payer MEDICARE, MEDICAID, SELFPAY ==
[2024-07-05] VITALS (29 sets, daily range): BP systolic 97–144; BP diastolic 51–118; PULSE 100–150; RESP 16–32; TEMP 36.2–37.6; O2SAT 94–99; BMI 34.6
--- NOTE | ~2024-07-05 | XR_ITS ---
CHEST RADIOGRAPH CLINICAL HISTORY: chest pain/heaviness . COMPARISON: 07/05/2024 TECHNIQUE: Single portable view of the chest. FINDINGS The cardiomediastinal silhouette is unremarkable. Increased interstitial markings are identified bilaterally, findings suggesting mild pulmonary vascul ar congestion. The lungs are otherwise clear. IMPRESSION: Mild pulmonary vascular congestion, without focal infiltrate or effusion. Reviewed, dictated and finalized at location A. DRY MANAGER
--- NOTE | ~2024-07-05 | XR_ITS ---
INTRAOPERATIVE FLUOROSCOPY: CLINICAL HISTORY: 68 years old Female; LEFT STENT PLACEMENT PROCEDURE COMMENTS: Limited intraoperative fluoroscopy of the lower abdomen, to the left of midline w as performed. CUMULATIVE DOSE: 7.1 mGy FLUOROSCOPY TIME: 22.4 seconds FINDINGS/IMPRESSION: Please refer to operative note for further details. Reviewed, dictated and finalized at location A. RITY ASSURANCE ANALYST
--- NOTE | ~2024-07-05 | XR_ITS ---
EXAMINATION: XR chest 1V portable DATE: 07/13/2024 13:20 INDICATION: Leukocytosis. TECHNIQUE: A single frontal view of the chest was obtained. COMPARISON: Chest single view 07/10/2024, chest CT 07/05/2024 FINDINGS: Calcified left lung nodules and calcified left hilar lymph nodes are consistent with old gr anulomatous disease. No pleural effusion or pneumothorax. The heart size is normal. IMPRESSION: 1. No acute cardiopulmonary disease. Reviewed, dictated and finalized at location A. CATION SERVICES SPECIALIST
--- NOTE | ~2024-07-05 | CT_ITS ---
EXAMINATION: CT brain wo con DATE: 07/05/2024 14:25 INDICATION: Altered mental status TECHNIQUE: Computed tomographic angiography (CTA) of the head was performed without and with 100 mL O mnipaque-350 intravenous contrast. Exam dose: 605.33 mGy-cm total exam DLP. Volume-rendered and ma ximum intensity projection 3D reconstructions of the intracranial arteries were created by the techno logist on a separate workstation. COMPARISON: 01/06/2018 CT brain FINDINGS: Bilateral vertebral artery, basilar artery and prominent bilateral carotid siphon internal carotid artery calcifications. There is nonspecific diminished attenuation of the cerebral white matter, likely due to chronic small vessel ischemic changes. No intracranial mass lesion or hemorrhage or cerebrovascular accident, midline shift or mass effect i s detected. No subdural or epidural hematoma. No fracture or bone destruction of the cranial vault. The included mastoid air cells and paranasal sinuses are normally developed and aerated. IMPRESSION: Cerebral atherosclerosis and proximal vessel ischemic changes of the cerebral white aletha er No acute intracranial finding or significant change since 01/06/2018 Reviewed, dictated and finalized at Location A. Reviewed, dictated and finalized at location A. FLEECE SORTER IMPRESSION: Cerebral atherosclerosis and proximal vessel ischemic changes of t he cerebral white matter No acute intracranial finding or significant change since 01/06/2018
--- NOTE | ~2024-07-05 | XR_ITS ---
EXAMINATION: XR barium swallow modified DATE: 07/09/2024 13:10 INDICATION: Altered mental status. TECHNIQUE: The patient was given barium-containing material of multiple consistencies to swallow by t aidan speech pathologist while I performed fluoroscopy. Fluoroscopy exposure time was 1.1 minutes. The n umber of fluoroscopy images saved to the PACS was 1. Dose-area product was 0.926 Gy-cm^2. FINDINGS: There is reduced laryngeal seal/lip tension. There is reduced laryngeal elevation, reduced tongue bas e retraction, vallecular residue, pyriform sinus residue, and laryngeal penetration. IMPRESSION: 1. Laryngeal penetration. 2. Please refer to the speech therapy report for recommendations. Reviewed, dictated and finalized at location A. RINE PLANT OPERATOR
--- NOTE | ~2024-07-05 | CT_ITS ---
EXAMINATION: CTA chest PE abdomen pel DATE: 07/05/2024 14:55 SOFTWARE ENGINEERING MANAGER INDICATION: Sepsis, urinary tract infection, altered mental status TECHNIQUE: Computed tomographic angiography (CTA) of the chest was performed, along with multiple con tiguous axial images of the abdomen and pelvis with 100 mL Omnipaque-350 intravenous contrast. The do se-length product was 2377.82 mGy-cm. Maximum intensity projection 3D-reconstructions of the aorta an d other arteries were constructed by the technologist on a separate workstation. FINDINGS/OBSERVATIONS: PULMONARY ARTERIES: No filling defect is identified within the main or proximal pulmonary artery. The main pulmonary artery is borderline enlarged. THORACIC AORTA: The ascending thoracic aorta measures 4.1 cm in anterior to posterior dimension. The remainder of the thoracic aorta is without aneurysmal dilatation or dissection. The great vessels are intact LUNGS: Patchy groundglass opacification detected bilaterally. Dependent pleural thickening and diffus e interstitial thickening bilaterally. MEDIASTINUM: No morphologically suspicious or pathologically enlarged lymph nodes are identified with in the mediastinum or bilateral axilla. BONES OF THE CHEST: No acute fracture. No significant degenerative disease. No lytic or blastic lesions. HEART: The heart is enlarged, without pericardial effusion. LIVER: The liver enhances homogeneously and is not enlarged. GALLBLADDER AND BILIARY SYSTEM: The gallbladder is surgically absent. PANCREAS: The pancreas demonstrates fatty atrophy without ductal dilatation. SPLEEN: The spleen enhances homogeneously and is borderline enlarged measuring 12cm in longitudinal dimension . KIDNEYS: Left sided hydroureteronephrosis extending to the proximal left ureter where a 9 mm stone is identifi ed. Significant surrounding inflammatory change within the left kidney as well as the remainder of th e retroperitoneum ADRENAL GLANDS: 4 cm right adrenal mass demonstrating fat attenuation, consistent with an adenoma. The left adrenal gland is unremarkable. GASTROINTESTINAL TRACT: Significant fecal stasis distending the rectum. APPENDIX: The appendix is not definitively visualized. However, no pericecal inflammatory change is identified suggest the presence of acute appendicitis. VASCULATURE: Unremarkable. No aneurysmal dilatation or significant stenosis. LYMPH NODES: No pathologically enlarged or morphologically suspicious lymph nodes within the retroperitoneum or at the root of the mesentery. PELVIC STRUCTURES: The bladder is only minimally distended, with mural thickening and surrounding inflammatory change. The uterus is either surgically absent or markedly atrophic. BODY WALL AND MUSCULOSKELETAL: No significant degenerative disease within the lower thoracic or lumbosacral spine. IMPRESSION: Left-sided hydroureteronephrosis secondary to a 9 mm stone in the proximal to mid left ureter. No pulmonary embolus. No aortic dissection. 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 Reviewed, dictated and finalized at location A. WARE ENGINEERING MANAGER IMPRESSION: Left-sided hydroureteronephrosis secondary to a 9 mm stone in the proximal to m id left ureter. No pulmonary embolus. No aortic dissection. 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
--- NOTE | ~2024-07-05 | XR_ITS ---
Exam: Abdomen 2V HISTORY: Left ureteral stone position COMPARISON: 07/05/2019 TECHNIQUE: Supine images of the abdomen and pelvis. FINDINGS: Bowel gas pattern is non-obstructive. There is no free air or deep sulci. Redemonstration of an oval shaped density projecting over the left renal pelvis, consistent with angie ent's known left renal calculus. This focus projects at the same level as the left double-J stent. Lung bases are unremarkable. Bones and soft tissues are unremarkable. IMPRESSION: 14 mm oval-shaped calculus projecting over the pigtail portion of the proximal double-J stent, as det rita above. Reviewed, dictated and finalized at location A. TRICAL DESIGNER DRAFTER IMPRESSION: 14 mm oval-shaped calculus projecting over the pigtail portion of the proximal double-J stent, as detailed above.
--- NOTE | ~2024-07-05 | XR_ITS ---
CHEST RADIOGRAPH CLINICAL HISTORY: Central line placement. . COMPARISON: 11/30/2023 TECHNIQUE: Single portable view of the chest. FINDINGS Interval placement of a right internal jugular central venous catheter with its tip projecting over t he proximal right atrium. The remainder of the cardiomediastinal silhouette is otherwise unremarkable. The lungs are clear. The right lung is fully inflated. Visualized osseous structures and soft tissues are unremarkable. IMPRESSION: No focal infiltrate or effusion. Right internal jugular central venous catheter in good position and ready for immediate use Reviewed, dictated and finalized at location A. RICAL CONTROL LATHE OPERATOR IMPRESSION: No focal infiltrate or effusion. Right internal jugular central venous catheter in good position and ready for i mmediate use
--- NOTE | 2024-07-05 10:54 | ECG_ITS ---
Test Date: 2024-07-05 10:57:25 Measurements Intervals [place] Rate: 150 P: 0 MO: 0 QRS: 41 QRSD: 89 T: 0 QT: 206 QTc: 325 Interpretive Statements ATRIAL FIBRILLATION WITH RAPID VENTRICULAR RESPONSE NONSPECIFIC ST & T-WAVE ABNORMALITY No previous ECG available for comparison Electronically Signed On 07-08-2024 16:45:01 [employer] by Esau Frederick M.D.
[2024-07-05 11:10] LABS: Basophils Absolute Auto 0.1 K/mm3 (0.0-0.1); Basophils Percent Auto 0.3 % (0.2-1.2); Eosinophils Percent Auto 0.2 % (0-4.4); Hematocrit 34.2 % (37.0-47.0); Hemoglobin 10.8 g/dL (12.0-15.0); Immature Granulocyte Absolute 0.12 K/mm3 (0.00-0.031); Immature Granulocyte Percent A 0.7 % (0-0.5); Immature Platelet Fraction Pct 6.3 % (0.9-11.2); Lymphocytes Absolute Auto 1.28 K/mm3 (0.9-3.2); Lymphocytes Percent Auto 7.7 % (18.3-44.2); Mean Corpuscular HGB Conc 31.6 g/dl (32-36); Mean Corpuscular Hemoglobin 24.2 pg (26-34); Mean Corpuscular Volume 76.7 fl (80-100); Mean Platelet Volume 11.5 fl (7.4-10.4); Monocytes Absolute Auto 1.1 K/mm3 (0.1-0.6); Monocytes Percent Auto 6.6 % (2.6-8.5); Neutrophils Absolute Auto 14.1 K/mm3 (1.3-6.7); Neutrophils Percent Auto 84.5 % (45.5-73.1); Platelet Count Result 111 k/mm3 (150-375); Red Blood Count 4.46 M/mm3 (4.2-5.4); White Blood Count 16.7 K/mm3 (4.5-10.0)
[2024-07-05 11:21] LABS: Alanine Aminotransferase 33 U/L (6-35); Albumin Level 3.5 g/dL (3.5-5.1); Alkaline Phosphatase 106 U/L (38-126); Anion Gap 5 mmol/L (4-12); Aspartate Amino Transferase 62 U/L (14-36); Bilirubin,Total 1.2 mg/dL (0.2-1.3); Blood Urea Nitrogen 33 mg/dL (7-17); Calcium 10.3 mg/dL (8.4-10.2); Carbon Dioxide 26 mmol/L (22-30); Chloride 104 mmol/L (98-107); Estimated CRCL calculation 24 ml/min; Estimated Glomerular Filt Rate 20; Glucose 226 mg/dL (65-110); Potassium 4.4 mmol/L (3.4-5.0); Sodium 135 mmol/L (137-145)
[2024-07-05 11:23] LABS: INR 1.9; Partial Thromboplastin Time 39.7 Seconds (22.3-36.8); Prothrombin Time 21.7 Seconds (11.1-14.7)
[2024-07-05] MEDS: SODIUM CHLORIDE 0.9% IV 1,000 ML 999 ML IV CONT ×4 (11:41→14:17)
[2024-07-05 11:49] LABS: Influenza A QL RT-PCR Negative (Negative); Influenza B QL RT-PCR Negative (Negative); RSV RNA, RT-PCR Negative (Negative); SARS-CoV-2 RNA PCR Negative (Negative)
[2024-07-05 11:51] LABS: Add Urine Microscopic? YES; Appearance Urine Cloudy (Clear); Bacteria Urine 4+ /hpf; Bilirubin Urine Negative (Negative); Blood Urine 2+ (Negative); Color Urine Yellow (Yellow); Glucose Urine UA Negative (Negative); Ketones Urine Trace mg/dL (Negative); Leukocyte Esterase Ur 2+ LEU/UL (Negative); Nitrate Urine Negative (Negative); Non Pathogenic Casts 0-2; Protein Urine 1+ mg/dL (Negative); RBC Urine 0-2 /hpf (0-2); Specific Grav Ur 1.019 (1.001-1.035); Squamous Epithelial Cell Urine None Seen /hpf (Few); Urobilinogen Urine 0.2 mg/dL (<2.0); WBC Urine 51-100 /hpf (0-3); pH Urine 5.5 (5.0-9.0)
--- NOTE | 2024-07-05 12:05 | ED_ITS ---
HPI - General Adult General Chief complaint: Altered Mental Status Stated complaint: not feeling well x days Time Seen by Provider: 07/05/24 10:43 History of Present Illness HPI narrative: Patient is a 68-year-old female who presents ER with mental status change in weakness. Resides at a custodial. Patient oriented to self at this time. She appears dry will not answer questions. She has no reports of pain. Related Data Home Medications ?Medication ?Instructions ?Recorded ?Confirmed ?Last Taken ?Type diltiazem HCl 120 mg capsule,24 120 mg PO DAILY 06/29/19 04/30/24 Unknown History hr,extended release metoprolol succinate 25 mg 25 mg PO DAILY 01/25/21 04/30/24 Unknown History tablet,extended release 24 hr aspirin 81 mg tablet,delayed 81 mg PO DAILY 08/20/22 04/30/24 Unknown History release cholecalciferol (vitamin D3) 10 2,000 unit PO DAILY 12/17/22 04/30/24 Unknown History mcg (400 unit) capsule apixaban 5 mg tablet (Eliquis) 5 mg PO BID 03/27/24 04/30/24 Unknown History insulin degludec 100 unit/mL (3 25 unit subcut DAILY 03/27/24 04/30/24 Unknown History mL) subcutaneous pen (Tresiba FlexTouch U-100 insulin) risperidone 1 mg tablet 1.5 mg PO BID 03/27/24 04/30/24 Unknown History acetaminophen 650 mg tablet 650 mg PO Q6H PRN y 03/30/24 04/30/24 Unknown History Allergies Allergy/AdvReac Type Severity Reaction Status Date / Time Cephalosporins Allergy Unknown Hives Verified 03/30/24 11:14 ciprofloxacin Allergy Unknown Hives Verified 03/30/24 11:14 codeine Allergy Unknown Hives Verified 03/30/24 11:14 erythromycin base Allergy Unknown Hives Verified 03/30/24 11:14 levofloxacin Allergy Unknown Hives Verified 03/30/24 11:14 lidocaine Allergy Unknown Hives Verified 03/30/24 11:14 Macrolide Antibiotics Allergy Unknown Hives Verified 03/30/24 11:14 Quinolones Allergy Unknown Hives Verified 03/30/24 11:14 Sulfa (Sulfonamide Allergy Unknown Hives Verified 03/30/24 11:14 Antibiotics) theophylline Allergy Unknown Hives Verified 03/30/24 11:14 citalopram AdvReac Unknown Agitated Verified 03/30/24 11:14 ALL ASHLEY DRUGS Allergy Mild ITCHING, Uncoded 03/27/24 13:40 BURNING, SWELLING AT SITE Review of Systems 2 Review of Systems: ROS unobtainable: Yes unobtainable due to mental status PMFSH Past Medical History Medical History Ascending aortic aneurysm Atrial fibrillation No longer on anticoagulation as of fall 2022 due to history of falls. Chronic kidney disease COVID-19 Depression Essential (primary) hypertension Hyperlipidemia Hypothyroidism Kidney stone Obstructive sleep apnea treated with BiPAP Psoriasis Psoriatic arthritis Spinal stenosis Type 2 diabetes mellitus Vitamin D deficiency Surgical History Surgical History History of bunionectomy History of hysterectomy Family History Family History Sibling Family history of respiratory disorder Family history of diabetes mellitus in first degree relative Family history of congestive heart failure Acute myocardial infarction Mother Family history of chronic obstructive pulmonary disease Family history of congestive heart failure Father Acute myocardial infarction Other Family history of arthritis Family history of malignant neoplasm Family history of mental disorder Hypertension Social History Social History Social History: Surrogate medical decision maker: June Gee or Sienna Roy, daughters. Code status: Full code. Smoking status: Never smoker Second hand tobacco smoke exposure: Yes Alcohol intake: never Substance use: never Substance use type: does not use Do You Feel Safe in your Home?: Yes Lack of Transportation: No Lack of Food: Never True Current Housing: I Have Housing Concerned About Future Housing: No Difficulty Paying Gas/Electric Bills: No Difficulty Paying for Meds: No Currently Unemployed: No Education: High School Diploma/GED Difficulty w/ Childcare or Family Care: No Additional living arrangements comments: The patient lives in her own home in [place]. Spiritual care concerns: No Exam 2 Narrative: GENERAL: Ill-appearing, well-nourished, and in no acute distress. HEAD: Normocephalic, atraumatic. EYES: PERRL and EOMI. ENT: Dry mucous membranes. CHEST: Clear to auscultation. No respiratory distress. HEART: Irregularly irregular rate and rhythm that is tachycardic. Normal peripheral pulses. ABDOMEN: Soft, nontender, nondistended. EXTREMITIES: Normal range of motion. 1+ edema. SKIN: Warm, dry, no rash. NEURO: Alert and oriented x1. Course Course Emergency Course: Patient heart rate responding well to fluids. Becoming it bit more alert. Accepted by hospitalist service for UTI and NONI his well as sepsis. Patient's daughters arrived. Report kidney stone history, CT added on by hospitalist service. 9 mm obstructing stone left side. Dr. Khan contacted, he will take the patient to the OR for stent. Vital Signs Vital signs: Vital Signs Temperature 97.2 F L 07/05/24 10:42 Pulse Rate 149 H 07/05/24 10:42 Respiratory Rate 16 07/05/24 10:42 Blood Pressure 135/66 07/05/24 10:42 Pulse Oximetry 94 07/05/24 10:42 Oxygen Delivery Room Air 07/05/24 10:42 Temperature 97.9 F 07/05/24 11:02 Pulse Rate 121 H 07/05/24 12:31 Respiratory Rate 23 H 07/05/24 12:31 Blood Pressure 127/99 H 07/05/24 12:31 Pulse Oximetry 97 07/05/24 12:31 Oxygen Delivery Nasal Cannula 07/05/24 10:54 Oxygen Flow Rate 2 07/05/24 10:54 Medical Decision Making Vital Signs Vital Signs: Vital Signs Temperature 97.2 F L 07/05/24 10:42 Pulse Rate 149 H 07/05/24 10:42 Respiratory Rate 16 07/05/24 10:42 Blood Pressure 135/66 07/05/24 10:42 Pulse Oximetry 94 07/05/24 10:42 Oxygen Delivery Room Air 07/05/24 10:42 Temperature 97.9 F 07/05/24 11:02 Pulse Rate 121 H 07/05/24 12:31 Respiratory Rate 23 H 07/05/24 12:31 Blood Pressure 127/99 H 07/05/24 12:31 Pulse Oximetry 97 07/05/24 12:31 Oxygen Delivery Nasal Cannula 07/05/24 10:54 Oxygen Flow Rate 2 07/05/24 10:54 Lab Data 07/05/24 11:04 07/05/24 11:04 Labs: Lab Results 07/05/24 07/05/24 07/05/24 Range/Units 11:04 11:06 11:37 WBC 16.7 H (4.5-10.0) K/mm3 RBC 4.46 (4.2-5.4) M/mm3 Hgb 10.8 L (12.0-15.0) g/dL Hct 34.2 L (37.0-47.0) % MCV 76.7 L (80-100) fl MCH 24.2 L (26-34) pg MCHC 31.6 L (32-36) g/dl RDW 17.0 H (11.5-14.5) % Plt Count 111 L (150-375) k/mm3 MPV 11.5 H (7.4-10.4) fl Immature Gran % (Auto) 0.7 H (0-0.5) % Neut % (Auto) 84.5 H (45.5-73.1) % Lymph % (Auto) 7.7 L (18.3-44.2) % [place] % (Auto) 6.6 (2.6-8.5) % Eos % (Auto) 0.2 (0-4.4) % Baso % (Auto) 0.3 (0.2-1.2) % Lymph # (Auto) 1.28 (0.9-3.2) K/mm3 [place] # (Auto) 1.1 H (0.1-0.6) K/mm3 Eos # (Auto) 0.0 (0-0.3) K/mm3 Baso # (Auto) 0.1 (0.0-0.1) K/mm3 Abs Immat Gran (auto) 0.12 H (0.00-0.031) K/mm3 Absolute Neuts (auto) 14.1 H (1.3-6.7) K/mm3 Absolute Nucleated RBC 0.000 (0.0-0.012) K/mm3 Nucleated RBC % 0.0 (0.0-0.2) % % Immature Plt Fraction 6.3 (0.9-11.2) % PT 21.7 H (11.1-14.7) Seconds INR 1.9 APTT 39.7 H (22.3-36.8) Seconds Sodium 135 L (137-145) mmol/L Potassium 4.4 (3.4-5.0) mmol/L Chloride 104 (98-107) mmol/L Carbon Dioxide 26 (22-30) mmol/L Anion Gap 5 (4-12) mmol/L BUN 33 H D (7-17) mg/dL Creatinine 2.40 H (0.7-1.0) mg/dL Estim Creat Clear Calc 24 ml/min Estimated GFR 20 L (59 - ) Glucose 226 H (65-110) mg/dL Lactic Acid (0.7-2.0) mmol/L Calcium 10.3 H (8.4-10.2) mg/dL Phosphorus 3.7 (2.5-4.5) mg/dL Magnesium 1.8 (1.6-2.3) mg/dL Total Bilirubin 1.2 (0.2-1.3) mg/dL AST 62 H (14-36) U/L ALT 33 (6-35) U/L Alkaline Phosphatase 106 (38-126) U/L Total Protein 7.0 (6.3-8.2) g/dL Albumin 3.5 (3.5-5.1) g/dL Urine Color Yellow (Yellow) Urine Appearance Cloudy H (Clear) Urine pH 5.5 (5.0-9.0) Ur Specific [place] 1.019 (1.001-1.035) Urine Protein 1+ H (Negative) mg/dL Urine Glucose (UA) Negative (Negative) mg/dL Urine Ketones Trace H (Negative) mg/dL Ur Blood (Man) 2+ H (Negative) Urine Nitrate Negative (Negative) Urine Bilirubin Negative (Negative) Urine Urobilinogen 0.2 (<2.0) mg/dL Leukocyte Esterase Rfl 2+ H (Negative) SPENCER/UL Urine RBC 0-2 (0-2) /hpf Urine WBC 51-100 H (0-3) /hpf Ur Squamous Epith Cells None seen (Few) /hpf Urine Bacteria 4+ H /hpf Urine Casts 0-2 Influenza A (RT-PCR) Negative (Negative) Influenza B (RT-PCR) Negative (Negative) RSV (RT-PCR) Negative (Negative) SARS-CoV-2 RNA (RT-PCR) Negative (Negative) 07/05/24 Range/Units 12:49 WBC (4.5-10.0) K/mm3 RBC (4.2-5.4) M/mm3 Hgb (12.0-15.0) g/dL Hct (37.0-47.0) % MCV (80-100) fl MCH (26-34) pg MCHC (32-36) g/dl RDW (11.5-14.5) % Plt Count (150-375) k/mm3 MPV (7.4-10.4) fl Immature Gran % (Auto) (0-0.5) % Neut % (Auto) (45.5-73.1) % Lymph % (Auto) (18.3-44.2) % [place] % (Auto) (2.6-8.5) % Eos % (Auto) (0-4.4) % Baso % (Auto) (0.2-1.2) % Lymph # (Auto) (0.9-3.2) K/mm3 [place] # (Auto) (0.1-0.6) K/mm3 Eos # (Auto) (0-0.3) K/mm3 Baso # (Auto) (0.0-0.1) K/mm3 Abs Immat Gran (auto) (0.00-0.031) K/mm3 Absolute Neuts (auto) (1.3-6.7) K/mm3 Absolute Nucleated RBC (0.0-0.012) K/mm3 Nucleated RBC % (0.0-0.2) % % Immature Plt Fraction (0.9-11.2) % PT (11.1-14.7) Seconds INR APTT (22.3-36.8) Seconds Sodium (137-145) mmol/L Potassium (3.4-5.0) mmol/L Chloride (98-107) mmol/L Carbon Dioxide (22-30) mmol/L Anion Gap (4-12) mmol/L BUN (7-17) mg/dL Creatinine (0.7-1.0) mg/dL Estim Creat Clear Calc ml/min Estimated GFR (59 - ) Glucose (65-110) mg/dL Lactic Acid 4.4 H* (0.7-2.0) mmol/L Calcium (8.4-10.2) mg/dL Phosphorus (2.5-4.5) mg/dL Magnesium (1.6-2.3) mg/dL Total Bilirubin (0.2-1.3) mg/dL AST (14-36) U/L ALT (6-35) U/L Alkaline Phosphatase (38-126) U/L Total Protein (6.3-8.2) g/dL Albumin (3.5-5.1) g/dL Urine Color (Yellow) Urine Appearance (Clear) Urine pH (5.0-9.0) Ur Specific [place] (1.001-1.035) Urine Protein (Negative) mg/dL Urine Glucose (UA) (Negative) mg/dL Urine Ketones (Negative) mg/dL Ur Blood (Man) (Negative) Urine Nitrate (Negative) Urine Bilirubin (Negative) Urine Urobilinogen (<2.0) mg/dL Leukocyte Esterase Rfl (Negative) SPENCER/UL Urine RBC (0-2) /hpf Urine WBC (0-3) /hpf Ur Squamous Epith Cells (Few) /hpf Urine Bacteria /hpf Urine Casts Influenza A (RT-PCR) (Negative) Influenza B (RT-PCR) (Negative) RSV (RT-PCR) (Negative) SARS-CoV-2 RNA (RT-PCR) (Negative) ECG Data EKG #1: ECG completion date: 07/05/24 ECG completion time: 10:57 EKG Interpretation: tachycardia (150), atrial fibrillation, non-specific ST changes, normal QRS and NL axis Critical Care Time Critical Care Time Critical Care Time: Yes Total Critical Care Time: 35 Discharge Plan Discharge Clinical Impression: Sepsis, Acute UTI, AMS (altered mental status), NONI (acute kidney injury) Patient Disposition: Still a Patient Condition: Stable
[2024-07-05] MEDS: PIPERACILLN/TAZ 3.375GM/NS50ML 3.375 GM/50 ML BAG IVPB (12:44)
--- NOTE | 2024-07-05 12:53 | PC.NURSE ---
Lactate acid obtained and sent to lab. Daughters at bedside
--- NOTE | 2024-07-05 12:56 | P.HP_ITS ---
H&P: HPI History of Present Illness Date/Time: 07/05/24 12:56 Chief Complaint: Altered Mental Status Narrative: Carol Gee is a 68 year old female hx afib on anticoagulation, DMII, HTN, aortic aneurysm, hx PE, admitted for abdominal pain and nausea, altered mental status. Patient lives at [facility]. Daughter June Gee at Bedside, said her mom has not feeling well for days, reported nausea. Patient only able to participate minimally. She lifts head and answers some questions intermittently. In the ER she was found to be in Afib with RVR, given 10mg IV diltiazem with some improvement. UA also positive, and treated empirically for a UTI with Zosyn given multiple allergies. Restarted her PO metoprolol and diltiazem for rate control. WBC elevated to 16.7, Creatinine 2.4, lactate 4.4. Flu/Covid/RSV negative. HR intially up to 150's, improving with fluids and beta blockers CT CAP with contrast was done and she was found to have obstructing left renal stone. Urology was consulted and she was taken urgently for a cystoscopy stent placement. Postoperatively she was transferred to ICU Patient is a full code perioperatively but then will likely change back to DNR/DNI. Her daughters plan to have a conversation with her about her code status. Daughters are next of Kin: June Gee [phone], Sienna Roy [phone] [facility] Past Medical History Medical History ALIVIA (obstructive sleep apnea) Sepsis Chronic kidney disease Depression Obstructive sleep apnea treated with BiPAP Psoriasis Type 2 diabetes mellitus Hyperlipidemia COVID-19 Spinal stenosis Ascending aortic aneurysm Atrial fibrillation No longer on anticoagulation as of fall 2022 due to history of falls. Hypothyroidism Kidney stone Psoriatic arthritis Vitamin D deficiency Essential (primary) hypertension Surgical History Surgical History History of hysterectomy History of bunionectomy Family History Family History Sibling Family history of respiratory disorder Family history of diabetes mellitus in first degree relative Family history of congestive heart failure Acute myocardial infarction Mother Family history of chronic obstructive pulmonary disease Family history of congestive heart failure Father Acute myocardial infarction Other Family history of arthritis Family history of malignant neoplasm Family history of mental disorder Hypertension Social History Social History Social History: Surrogate medical decision maker: June Gee or Sienna Roy, daughters. Code status: Full code. Smoking status: Never smoker Second hand tobacco smoke exposure: Yes Alcohol intake: never Substance use: never Substance use type: does not use Do You Feel Safe in your Home?: Yes Lack of Transportation: No Lack of Food: Never True Current Housing: I Have Housing Concerned About Future Housing: No Difficulty Paying Gas/Electric Bills: No Difficulty Paying for Meds: No Currently Unemployed: No Education: High School Diploma/GED Difficulty w/ Childcare or Family Care: No Additional living arrangements comments: The patient lives in her own home in [place]. Spiritual care concerns: No Meds Home Medications and Allergies Home Medications ?Medication ?Instructions ?Recorded ?Confirmed ?Type diltiazem HCl 120 mg capsule,24 120 mg PO DAILY 06/29/19 04/30/24 History hr,extended release metoprolol succinate 25 mg 25 mg PO DAILY 01/25/21 04/30/24 History tablet,extended release 24 hr escitalopram oxalate 10 mg tablet 10 mg PO DAILY #30 tabs 03/28/21 04/30/24 Rx escitalopram oxalate 20 mg tablet 20 mg PO DAILY #30 tabs 03/28/21 04/30/24 Rx blood-glucose meter (OneTouch #1 ea 01/04/22 04/30/24 Rx Ultra2 Meter) spirometers and accessories #1 ea 02/20/22 04/30/24 Rx aspirin 81 mg tablet,delayed 81 mg PO DAILY 08/20/22 04/30/24 History release buspirone 30 mg tablet 30 mg PO BID #1 tablet 10/02/22 04/30/24 Rx quetiapine 300 mg tablet 300 mg PO QHS #1 tablet 10/02/22 04/30/24 Rx quetiapine 50 mg tablet 50 mg PO DAILY #1 tablet 10/02/22 04/30/24 Rx cholecalciferol (vitamin D3) 10 2,000 unit PO DAILY 12/17/22 04/30/24 History mcg (400 unit) capsule lancets #200 ea 12/17/22 04/30/24 Rx polyethylene glycol 3350 17 17 g PO DAILY 1 month #510 grams 05/21/23 04/30/24 Rx gram/dose oral powder (Miralax) levothyroxine 150 mcg tablet 150 mcg PO DAILY #90 tabs 08/29/23 04/30/24 Rx (Euthyrox) magnesium oxide 400 mg (241.3 mg 800 mg (2 x 400 mg (241.3 mg 09/30/23 04/30/24 Rx magnesium) tablet magnesium)) PO DAILY #180 tabs blood sugar diagnostic (OneTouch #100 ea 02/17/24 04/30/24 Rx Ultra Test strips) pen needle, diabetic 31 gauge x #100 ea 03/23/24 04/30/24 Rx 5/16 (TRUEplus Pen Needle) apixaban 5 mg tablet (Eliquis) 5 mg PO BID 03/27/24 04/30/24 History insulin degludec 100 unit/mL (3 25 unit subcut DAILY 03/27/24 04/30/24 History mL) subcutaneous pen (Tresiba FlexTouch U-100 insulin) risperidone 1 mg tablet 1.5 mg PO BID 03/27/24 04/30/24 History acetaminophen 650 mg tablet 650 mg PO Q6H PRN y 03/30/24 04/30/24 History cefdinir 300 mg capsule 300 mg PO Q12H #6 caps 04/03/24 04/30/24 Rx loperamide 2 mg capsule 2 mg PO Q6HR #30 caps 04/03/24 04/30/24 Rx tramadol 50 mg tablet 50 mg PO Q6H PRN pain 4-6 #20 tabs 04/03/24 04/30/24 Rx Allergies Allergy/AdvReac Type Severity Reaction Status Date / Time Cephalosporins Allergy Unknown Hives Verified 07/05/24 17:07 ciprofloxacin Allergy Unknown Hives Verified 07/05/24 17:07 codeine Allergy Unknown Hives Verified 07/05/24 17:07 erythromycin base Allergy Unknown Hives Verified 07/05/24 17:07 levofloxacin Allergy Unknown Hives Verified 07/05/24 17:07 lidocaine Allergy Unknown Hives Verified 07/05/24 17:07 Macrolide Antibiotics Allergy Unknown Hives Verified 07/05/24 17:07 Quinolones Allergy Unknown Hives Verified 07/05/24 17:07 Sulfa (Sulfonamide Allergy Unknown Hives Verified 07/05/24 17:07 Antibiotics) theophylline Allergy Unknown Hives Verified 07/05/24 17:07 citalopram AdvReac Unknown Agitated Verified 07/05/24 17:07 ALL ASHLEY DRUGS Allergy Mild ITCHING, Uncoded 07/05/24 17:07 BURNING, SWELLING AT SITE Vital Signs Vital Signs - 24 hr 07/05/24 10:42 07/05/24 10:54 07/05/24 10:54 Temperature 97.2 F L Pulse Rate 149 H 114 H Respiratory Rate 16 Blood Pressure 135/66 Pulse Oximetry 94 97 Oxygen Delivery Room Air Nasal Cannula Oxygen Flow Rate 2 07/05/24 11:02 07/05/24 11:16 07/05/24 11:29 Temperature 97.9 F Pulse Rate 146 H 136 H 142 H Respiratory Rate 22 H 21 H 18 Blood Pressure 124/54 L 97/71 L 118/70 Pulse Oximetry 99 Oxygen Delivery Oxygen Flow Rate 07/05/24 11:30 07/05/24 11:31 07/05/24 11:38 Temperature Pulse Rate 137 H 141 H 150 H Respiratory Rate 19 22 H 23 H Blood Pressure 144/118 H 104/69 Pulse Oximetry Oxygen Delivery Oxygen Flow Rate 07/05/24 12:00 07/05/24 12:01 07/05/24 12:31 Temperature Pulse Rate 127 H 117 H 121 H Respiratory Rate 22 H 32 H 23 H Blood Pressure 127/70 127/99 H Pulse Oximetry 96 97 Oxygen Delivery Oxygen Flow Rate Exam Narrative: General - Lethargic and pale, ill appearing, but wakes up and answers some que stions Eyes - PERRLA, EOM intact ENT - No thrush, No erythema Neck - No noticeable or palpable swelling Lymph Nodes - No lymphadenopathy Cardiovascular - RRR no m/r/g, no JVD Lungs: Clear to auscultation, No wheezing, use of accessory muscles, no crackles or wheezes. Skin - Skin warm and dry, no wounds or rashes Abdomen - Normal bowel sounds, abdomen soft and nontender, obese Extremities - No edema, cyanosis or clubbing Musculoskeletal - 2/5 strength, normal range of motion, no swollen or erythematous joints. Neurological ? Alert and oriented x 1,, CN 2-12 grossly intact. Psych: Normal mood and affect H&P: Results Labs Labs: Short CBC 07/05/24 Range/Units 11:04 WBC 16.7 H (4.5-10.0) K/mm3 Hgb 10.8 L (12.0-15.0) g/dL Hct 34.2 L (37.0-47.0) % Plt Count 111 L (150-375) k/mm3 BMP 07/05/24 11:04 Sodium 135 L Potassium 4.4 Chloride 104 Carbon Dioxide 26 BUN 33 H D Creatinine 2.40 H Glucose 226 H Calcium 10.3 H Liver Function 07/05/24 Range/Units 11:04 Total Bilirubin 1.2 (0.2-1.3) mg/dL AST 62 H (14-36) U/L ALT 33 (6-35) U/L Alkaline Phosphatase 106 (38-126) U/L Albumin 3.5 (3.5-5.1) g/dL Urine 07/05/24 Range/Units 11:37 Urine Color Yellow (Yellow) Urine Appearance Cloudy H (Clear) Urine pH 5.5 (5.0-9.0) Ur Specific [place] 1.019 (1.001-1.035) Urine Protein 1+ H (Negative) mg/dL Urine Glucose (UA) Negative (Negative) mg/dL Assessment and Plan Assessment and plan (1) Severe sepsis: Code(s): A41.9 - Sepsis, unspecified organism; R65.20 - Severe sepsis without septic shock Status: Acute Assessment and Plan: Meets criteria for sepsis with elevated WBC 16.7, Lactate 4.4, tachycardia with rate to the 150's, UTI complicated by acute pyelonephritis. Has a 9mm obstructing left kidney stone and urology is taking her urgently for cystoscopy --s/p 2 liters of NS --Continue Fluids --Continue Zosyn and linezolid empirically given severity of symptoms --holding tramadol while on linezolid --Follow urine and blood cultures --Trend lactate (2) NONI (acute kidney injury): Code(s): N17.9 - Acute kidney failure, unspecified Status: Acute Assessment and Plan: Creatinine elevated to 2.4. CT Abd/pelvis showed a 9mm obstructing stone in the proximal to mid left ureter. CT CAP was done with contrast due to critical illness and elevated lactate --Follow BMP daily --Likely obstructive and prerenal, also at risk for ATN related to contrast and sepsis --Treatment of hydronephrosis and stone removal as noted --Continue fluids and treatment of NONI --Nephrology consult if not improved (3) Atrial fibrillation with RVR: Code(s): I48.91 - Unspecified atrial fibrillation Status: Acute Assessment and Plan: Home meds: Metoprolol 25mg daily and Eliquis 5mg BID. Also has a history of PE in January. CT with contrast no PE. Rate up to 150's, improved with fluids and po metoprolol --Continue metoprolol 12.5 q6, titrate for rate control if blood pressure tolerates --Holding apixaban, resume when ok with urology --Follow CBC --Was able to swallow pills, but very lethargic. Speech to evaluate swallow --Repeat troponin. NT-proBNP likely elevated 2/2 afib with RVR --Check TTE (4) Acute pyelonephritis: Code(s): N10 - Acute pyelonephritis Status: Acute Assessment and Plan: Has multiple allergies: Cephalosporins, Quinolones, Sulfa, and Macrolides --Empiric Zosyn and Linezolid. Avoiding vanc with NONI (5) Hydronephrosis due to obstruction of ureter: Code(s): N13.1 - Hydronephrosis with ureteral stricture, not elsewhere classified Status: Acute Assessment and Plan: 07/05/23 CT CAP showed Left-sided hydroureteronephrosis secondary to a 9 mm stone in the proximal to mid left ureter. No pulmonary embolus. No aortic dissection. 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 Urology consulted, appreciate assistance. Patient taken to the OR urgently for stone removal (6) Goals of care, counseling/discussion: Code(s): Z71.89 - Other specified counseling Status: Acute Assessment and Plan: Patient is a full code perioperatively Family would like to discuss code status again after acute illness and patient able to participate. Will likely change back to DNR/DNI (7) AMS (altered mental status): Code(s): R41.82 - Altered mental status, unspecified Status: Acute Assessment and Plan: Patient acutely confused in the setting infection. Likely delirium. Head CT no acute findings, chronic changes --Delirium precautions --takes escitalopram 20 daily--continue --Takes Buspar 30 BID, Seroquel 50 in the morning, and 300 mg at bedtime. Holding Seroquel until more awake. Also interaction with linezolid. --Speech to evaluate swallow (8) Type 2 diabetes mellitus: Code(s): E11.9 - Type 2 diabetes mellitus without complications Status: Chronic Assessment and Plan: Home insulin: 27 daily in the morning (received am dose) Reduced insulin dose to 12 units Lantus & 4 units lispro TID with meals, SSI --Titrate insulin as needed --Resume diet as able --Accuchecks AC&HS (9) ALIVIA (obstructive sleep apnea): Code(s): G47.33 - Obstructive sleep apnea (adult) (pediatric) Status: Acute Assessment and Plan: CPAP hs Plan Other medical conditions stable. Continuing Synthroid for hypothyroidism. Quality VTE Prophylaxis VTE prophylaxis: mechanical ordered (holding anticoagulation perioperatively ) Hospitalist MIPS Advance Care Plan I have confirmed that the patient's Advanced Care Plan is present, code status is documented, or surrogate decision maker is listed in patient medical record.: Yes Medication Reconciliation I have utilized all available resources to obtain, update and review the patients current medications (includes all prescriptions, OTC, herbals, cannabis, and nutritional supplements).: Yes
[2024-07-05 13:06] LABS: Lactic Acid Reflex 4.4 mmol/L (0.7-2.0)
[2024-07-05 13:19] LABS: Magnesium 1.8 mg/dL (1.6-2.3); Phosphorus 3.7 mg/dL (2.5-4.5)
[2024-07-05] MEDS: SODIUM CHLORIDE 0.9% IV 900 ML 999 ML IV CONT (13:43)
[2024-07-05] MEDS: METOPROLOL TARTRATE 12.5 MG TABLET PO (13:44)
--- NOTE | 2024-07-05 14:10 | PCRCNOTE ---
CAME TO DRAW ABG AND PT. WAS NOT AVAILABLE.
[2024-07-05 14:18] LABS: NT Pro B Type Natriuretic Pept 4640 pg/mL (19.9-100); Troponin I 0.028 ng/mL (0.000-0.034)
[2024-07-05 14:37] LABS: Fractional Inspired Oxygen 28 %; HCO3 VBG 21.7 mEq/l (24.0-30.0); PCO2 VBG 48.5 mmHg (42.0-48.0)
[2024-07-05 14:38] LABS: PO2 VBG < 27.0 mmHg (35.0-45.0)
[2024-07-05 14:39] LABS: Device NASAL CANNULA
[2024-07-05 14:42] LABS: pH VBG 7.269 (7.300-7.400)
[2024-07-05 15:52] LABS: Reflex Lactic Acid Yes or No Add Lactic
[2024-07-05] MEDS: MAGNESIUM SULF 1 GM/D5W 100 ML 1 GM/100 ML BAG IVPB (16:53)
--- NOTE | 2024-07-05 17:26 | PC.NURSE ---
Pt to OR per stretcher with family
--- NOTE | 2024-07-05 17:27 | WPDURCON ---
Assessment and Plan Assessment and plan (1) NONI (acute kidney injury): Code(s): N17.9 - Acute kidney failure, unspecified Status: Acute (2) AMS (altered mental status): Code(s): R41.82 - Altered mental status, unspecified Status: Acute (3) Calculus of proximal left ureter: Code(s): N20.1 - Calculus of ureter Status: Acute (4) Hydronephrosis: Code(s): N13.30 - Unspecified hydronephrosis Status: Acute (5) Sepsis: Code(s): A41.9 - Sepsis, unspecified organism Status: Acute Plan She will be taken urgently to the operating room for cystoscopy left ureteral stent placement. Admitted to the hospitalist service postoperatively for management of sepsis. Family present with her all consents signed. They all understand the gravity of her condition and the urgency of this procedure Urology Consult Note HPI Date Seen: 07/05/24 Requesting Physician: José Manuel Graham MD Primary Care Provider: Jhoana Masters APRN Consult Narrative Narrative: Carol Gee is a 68 year old female seen at request of the emergency department here at [facility]. She is a group home resident. She has a known kidney stone which was undergoing workup in the past. This was delayed due to pulmonary embolism and need for anticoagulation. Her family was called by the group home today stating that she was becoming unresponsive in complaining of nausea as well as flank pain. She continued to deteriorate and she was transferred to the emergency room. CT scan was done which showed an obstructing 9 mm stone in her left ureter. She has an abnormal urinalysis and symptoms and signs of advanced sepsis with elevated lactate level. She will be taken to the operating room urgently for ureteral stent placement. She is currently not communicative and all its consenting information is obtained from her family members. This is being done on an emergent basis Review of Systems Review of Systems: ROS unobtainable: Yes unobtainable due to medical condition PMFSH Past Medical History Medical History (Updated 07/05/24 @ 17:32 by Duy Khan MD) Sepsis Chronic kidney disease Depression Obstructive sleep apnea treated with BiPAP Psoriasis Type 2 diabetes mellitus Hyperlipidemia COVID-19 Spinal stenosis Ascending aortic aneurysm Atrial fibrillation No longer on anticoagulation as of fall 2022 due to history of falls. Hypothyroidism Kidney stone Psoriatic arthritis Vitamin D deficiency Essential (primary) hypertension Surgical History Surgical History History of hysterectomy History of bunionectomy Family History Family History Sibling Family history of respiratory disorder Family history of diabetes mellitus in first degree relative Family history of congestive heart failure Acute myocardial infarction Mother Family history of chronic obstructive pulmonary disease Family history of congestive heart failure Father Acute myocardial infarction Other Family history of arthritis Family history of malignant neoplasm Family history of mental disorder Hypertension Social History Social History Social History: Surrogate medical decision maker: June Gee or Sienna Roy, [place]. Code status: Full code. Smoking status: Never smoker Second hand tobacco smoke exposure: Yes Alcohol intake: never Substance use: never Substance use type: does not use Do You Feel Safe in your Home?: Yes Lack of Transportation: No Lack of Food: Never True Current Housing: I Have Housing Concerned About Future Housing: No Difficulty Paying Gas/Electric Bills: No Difficulty Paying for Meds: No Currently Unemployed: No Education: High School Diploma/GED Difficulty w/ Childcare or Family Care: No Additional living arrangements comments: The patient lives in her own home in [place]. Spiritual care concerns: No Meds Home Medications and Allergies Home Medications ?Medication ?Instructions ?Recorded ?Confirmed ?Type diltiazem HCl 120 mg capsule,24 120 mg PO DAILY 06/29/19 04/30/24 History hr,extended release metoprolol succinate 25 mg 25 mg PO DAILY 01/25/21 04/30/24 History tablet,extended release 24 hr escitalopram oxalate 10 mg tablet 10 mg PO DAILY #30 tabs 03/28/21 04/30/24 Rx escitalopram oxalate 20 mg tablet 20 mg PO DAILY #30 tabs 03/28/21 04/30/24 Rx blood-glucose meter (OneTouch #1 ea 01/04/22 04/30/24 Rx Ultra2 Meter) spirometers and accessories #1 ea 02/20/22 04/30/24 Rx aspirin 81 mg tablet,delayed 81 mg PO DAILY 08/20/22 04/30/24 History release buspirone 30 mg tablet 30 mg PO BID #1 tablet 10/02/22 04/30/24 Rx quetiapine 300 mg tablet 300 mg PO QHS #1 tablet 10/02/22 04/30/24 Rx quetiapine 50 mg tablet 50 mg PO DAILY #1 tablet 10/02/22 04/30/24 Rx cholecalciferol (vitamin D3) 10 2,000 unit PO DAILY 12/17/22 04/30/24 History mcg (400 unit) capsule lancets #200 ea 12/17/22 04/30/24 Rx polyethylene glycol 3350 17 17 g PO DAILY 1 month #510 grams 05/21/23 04/30/24 Rx gram/dose oral powder (Miralax) levothyroxine 150 mcg tablet 150 mcg PO DAILY #90 tabs 08/29/23 04/30/24 Rx (Euthyrox) magnesium oxide 400 mg (241.3 mg 800 mg (2 x 400 mg (241.3 mg 09/30/23 04/30/24 Rx magnesium) tablet magnesium)) PO DAILY #180 tabs blood sugar diagnostic (OneTouch #100 ea 02/17/24 04/30/24 Rx Ultra Test strips) pen needle, diabetic 31 gauge x #100 ea 03/23/24 04/30/24 Rx 5/16 (TRUEplus Pen Needle) apixaban 5 mg tablet (Eliquis) 5 mg PO BID 03/27/24 04/30/24 History insulin degludec 100 unit/mL (3 25 unit subcut DAILY 03/27/24 04/30/24 History mL) subcutaneous pen (Tresiba FlexTouch U-100 insulin) risperidone 1 mg tablet 1.5 mg PO BID 03/27/24 04/30/24 History acetaminophen 650 mg tablet 650 mg PO Q6H PRN y 03/30/24 04/30/24 History cefdinir 300 mg capsule 300 mg PO Q12H #6 caps 04/03/24 04/30/24 Rx loperamide 2 mg capsule 2 mg PO Q6HR #30 caps 04/03/24 04/30/24 Rx tramadol 50 mg tablet 50 mg PO Q6H PRN pain 4-6 #20 tabs 04/03/24 04/30/24 Rx Allergies Allergy/AdvReac Type Severity Reaction Status Date / Time Cephalosporins Allergy Unknown Hives Verified 07/05/24 17:07 ciprofloxacin Allergy Unknown Hives Verified 07/05/24 17:07 codeine Allergy Unknown Hives Verified 07/05/24 17:07 erythromycin base Allergy Unknown Hives Verified 07/05/24 17:07 levofloxacin Allergy Unknown Hives Verified 07/05/24 17:07 lidocaine Allergy Unknown Hives Verified 07/05/24 17:07 Macrolide Antibiotics Allergy Unknown Hives Verified 07/05/24 17:07 Quinolones Allergy Unknown Hives Verified 07/05/24 17:07 Sulfa (Sulfonamide Allergy Unknown Hives Verified 07/05/24 17:07 Antibiotics) theophylline Allergy Unknown Hives Verified 07/05/24 17:07 citalopram AdvReac Unknown Agitated Verified 07/05/24 17:07 ALL ASHLEY DRUGS Allergy Mild ITCHING, Uncoded 07/05/24 17:07 BURNING, SWELLING AT SITE Vital Signs Vital Signs - 24 hr 07/05/24 10:42 07/05/24 10:54 07/05/24 10:54 Temperature 97.2 F L Pulse Rate 149 H 114 H Respiratory Rate 16 Blood Pressure 135/66 Pulse Oximetry 94 97 Oxygen Delivery Room Air Nasal Cannula Oxygen Flow Rate 2 07/05/24 11:02 07/05/24 11:16 07/05/24 11:29 Temperature 97.9 F Pulse Rate 146 H 136 H 142 H Respiratory Rate 22 H 21 H 18 Blood Pressure 124/54 L 97/71 L 118/70 Pulse Oximetry 99 Oxygen Delivery Oxygen Flow Rate 07/05/24 11:30 07/05/24 11:31 07/05/24 11:38 Temperature Pulse Rate 137 H 141 H 150 H Respiratory Rate 19 22 H 23 H Blood Pressure 144/118 H 104/69 Pulse Oximetry Oxygen Delivery Oxygen Flow Rate 07/05/24 12:00 07/05/24 12:01 07/05/24 12:31 Temperature Pulse Rate 127 H 117 H 121 H Respiratory Rate 22 H 32 H 23 H Blood Pressure 127/70 127/99 H Pulse Oximetry 96 97 Oxygen Delivery Oxygen Flow Rate 07/05/24 13:00 07/05/24 13:01 07/05/24 13:44 Temperature 97.4 F L Pulse Rate 108 H 113 H 126 H Respiratory Rate 22 H 30 H Blood Pressure 116/57 L Pulse Oximetry Oxygen Delivery Oxygen Flow Rate 07/05/24 14:01 07/05/24 14:28 07/05/24 14:30 Temperature Pulse Rate 120 H 108 H 103 H Respiratory Rate 19 18 16 Blood Pressure 132/73 Pulse Oximetry 94 96 Oxygen Delivery Oxygen Flow Rate 07/05/24 14:45 07/05/24 15:00 07/05/24 15:09 Temperature Pulse Rate 106 H 117 H 100 Respiratory Rate 19 20 18 Blood Pressure 130/69 Pulse Oximetry 97 96 94 Oxygen Delivery Oxygen Flow Rate 07/05/24 15:31 07/05/24 16:01 07/05/24 16:31 Temperature Pulse Rate 105 H 113 H 109 H Respiratory Rate 18 18 18 Blood Pressure 138/74 122/79 129/81 Pulse Oximetry 97 97 98 Oxygen Delivery Oxygen Flow Rate 07/05/24 17:01 Temperature 98.7 F Pulse Rate 133 H Respiratory Rate 18 Blood Pressure 126/51 L Pulse Oximetry 97 Oxygen Delivery Oxygen Flow Rate Exam Const: General: ill appearing; No healthy appearing, alert, awake or Physically active Orientation/consciousness: No patient oriented x3, patient obtunded and lethargic Limitations: No no limitations and physical limitations HENMT: Head: normal to inspection Eyes: Other: Does not open eyes Neck: Neck: normal visual inspection Resp: Effort & Inspection: normal respiratory effort GI: Inspection: other : Other: Deferred for OR Back/Spine/Pelvis: Back: no CVA tenderness Skin: General skin exam: normal color Neuro: General: No patient oriented x3 Extrem: General: normal to inspection Psych: Appearance: poorly kempt and disheveled Results Labs 07/05/24 11:04 07/05/24 11:04 Labs: Short CBC 07/05/24 Range/Units 11:04 WBC 16.7 H (4.5-10.0) K/mm3 Hgb 10.8 L (12.0-15.0) g/dL Hct 34.2 L (37.0-47.0) % Plt Count 111 L (150-375) k/mm3 BMP 07/05/24 11:04 Sodium 135 L Potassium 4.4 Chloride 104 Carbon Dioxide 26 BUN 33 H D Creatinine 2.40 H Glucose 226 H Calcium 10.3 H Cardiac Enzymes 07/05/24 Range/Units 11:04 Troponin I 0.028 (0.000-0.034) ng/mL Liver Function 07/05/24 Range/Units 11:04 Total Bilirubin 1.2 (0.2-1.3) mg/dL AST 62 H (14-36) U/L ALT 33 (6-35) U/L Alkaline Phosphatase 106 (38-126) U/L Albumin 3.5 (3.5-5.1) g/dL Urine 07/05/24 Range/Units 11:37 Urine Color Yellow (Yellow) Urine Appearance Cloudy H (Clear) Urine pH 5.5 (5.0-9.0) Ur Specific [place] 1.019 (1.001-1.035) Urine Protein 1+ H (Negative) mg/dL Urine Glucose (UA) Negative (Negative) mg/dL Imaging My impression: I reviewed her CT scan myself she has obstructing stone her left proximal to mid ureter with hydronephrosis and significant perinephric stranding
--- NOTE | 2024-07-05 17:33 | WPDHPUPDATE1 ---
History and Physical Update Update Date/Time: 07/05/24 17:33 History and Physical has been reviewed, including an updated exam of the patient. There are NO changes in the patient's condition. Risks, benefits, and alternatives have been discussed and questions answered. Patient agrees to proceed with procedure.
--- NOTE | 2024-07-05 17:49 | SUR.OPER ---
antibiotig given in Er . dr Khan aware ,no new orders
--- NOTE | 2024-07-05 17:58 | SUR.OPER ---
central line inserted per Dr Garcia
--- NOTE | 2024-07-05 18:02 | W.PM.PROC2 ---
Procedure Note - Detailed Date of Procedure 07/05/24 Pre-op Diagnosis Ureteral stone, sepsis Post-op Diagnosis Same Procedure Performed Cystoscopy, left retrograde pyelogram, left ureteral stent placement Surgeon Duy Khan MD Anesthesia MAC Indications This is a woman who is septic from a obstructing ureteral stone. Her family consents to left ureteral stenting. Admitted to the ICU postoperatively Findings Left ureteral stone with stent placed purulent urine from ureter Description of Procedure She is correctly identified. Informed consent obtained. From the operating room. She was given monitored anesthesia care. She was prepped and draped sterile fashion. She was placed in dorsal lithotomy position. Time-out performed. Cystoscopy revealed a significant purulent urine within the bladder. Ureteral orifices identified. I did a gentle retrograde pyelogram on the left only to outline renal and ureteral anatomy. There was no extravasation. Hydronephrosis was present. I placed a guidewire into the upper pole kidney. Copious purulence was seen did express from the ureter. I placed a 4.8 variable length stent in a standard fashion. Proximal coil in the kidney. Distal coil in the bladder. The bladder was drained. Reid catheter was placed. Anesthesia will place a central line initially taken to the ICU postoperatively Estimated Blood Loss 0 Drains Yes (Reid and stent) Packing No Pathology None sent Complications No immediate complications Condition Critical
--- NOTE | 2024-07-05 18:10 | SUR.OPER ---
report given to JOURNEYMAN POWER PLANT OPERATOR-Ines
--- NOTE | 2024-07-05 18:26 | P.PCNANE_ITS ---
Anes - Cent Venous Cath Note Consent: I have discussed with the patient/family/POA, the non-emergent placement of a central venous catheter, including its clinical necessity/indication and associated potential risks and complications. The patient/family/POA understand(s) and acknowledge(s) the need to proceed with central venous catheter insertion as an important element of the patient's clinical management given emergent patient conditions, temporal constraints may have precluded informed consent. Time-Out: A pre-procedural Time-Out was completed immediately before starting the procedure and confirmed: Patient Identification, Site, Procedure, Patient Position and the Availability of Requisite Equipment. Procedure Note Clinical Indications: hypotension, sepsis Patient position: trendelenburg Central venous catheter insertion site: right internal jugular CVC method of insertion: ultrasound-guided Hand hygiene/Aseptic technique: Hand hygiene procedures were performed. Aseptic technique was maintained throughout the procedure. Sterile barrier precautions: Maximal sterile barrier precautions, including use of a cap, mask, sterile gown, sterile gloves and a sterile full body drape. Site prep: chlorhexidine Skin anesthesia: placed under general anesthesia Persian: 7.5 Lumen: 3 Length (cm): 15 cm Depth of insertion (cm): 15 Closure/Dressing: suture, biopatch and tegaderm Complications: None immediately noted/suspected. Chest X Ray: Ordered/review to follow.
--- NOTE | 2024-07-05 18:31 | ADMGEN ---
This patient, Carol Gee, was admitted to Virtual Bed IMU-1 at 1830 Patient/family oriented to hospital policies and general routines including ID bracelet, bed and alarms, visiting hours, pain management, procedures, bathroom and other care routines, personal items, smoking policy, room service/diet, and visiting hours. Information on how to activate the Rapid Response Team has been discussed. Patient/Family are encouraged to report perceived risks to care and to ask questions if they do not understand what they are told or what they should do.
--- NOTE | 2024-07-05 18:36 | PC.NURSE ---
Bedside report received from OR team at [id number].
[2024-07-05] MEDS: PIPERACILLIN/TAZ 2.25G/NS 50ML 2.25 GM/50 ML BAG IVPB (18:38)
--- NOTE | 2024-07-05 18:38 | ADMGEN ---
This patient, Carol Gee, was admitted to Intensive Care Unit-1. Patient/family oriented to hospital policies and general routines including ID bracelet, bed and alarms, visiting hours, pain management, procedures, bathroom and other care routines, personal items, smoking policy, room service/diet, and visiting hours. Information on how to activate the Rapid Response Team has been discussed. Patient/Family are encouraged to report perceived risks to care and to ask questions if they do not understand what they are told or what they should do.
[2024-07-05 18:44] LABS: Glucose Point of Care 182 mg/dl (65-105)
[2024-07-05] MEDS: SODIUM CHLORIDE 0.9% IV 1,000 ML 125 ML IV CONT (18:45)
[2024-07-05] MEDS: POLYMYXIN/TRIMETHOPRIM OPHTH 10 ML DROPS 1 DROP EACH EYE ×2 (18:50→21:06)
[2024-07-05] MEDS: METOPROLOL TARTRATE INJ 5 MG/5 ML VIAL IV PUSH (18:50)
[2024-07-05 19:21] LABS: Alanine Aminotransferase 30 U/L (6-35); Alkaline Phosphatase 88 U/L (38-126); Anion Gap 4 mmol/L (4-12); Aspartate Amino Transferase 56 U/L (14-36); Bilirubin,Total 0.9 mg/dL (0.2-1.3); Blood Urea Nitrogen 33 mg/dL (7-17); Calcium 9.5 mg/dL (8.4-10.2); Carbon Dioxide 23 mmol/L (22-30); Chloride 108 mmol/L (98-107); Estimated CRCL calculation 25 ml/min; Estimated Glomerular Filt Rate 21; Glucose 222 mg/dL (65-110); Potassium 4.2 mmol/L (3.4-5.0); Sodium 135 mmol/L (137-145)
[2024-07-05 20:04] LABS: Troponin I 0.051 ng/mL (0.000-0.034)
[2024-07-05 20:46] LABS: Glucose Point of Care 197 mg/dl (65-105)
[2024-07-05] MEDS: LINEZOLID 600 MG/300 ML 600 MG/300 ML SOLN 300 MG IVPB (21:05)
[2024-07-05] MEDS: CENTRAL LINE FLUSH 10 ML IV PUSH (21:25)
[2024-07-05 23:07] LABS: Lactic Acid Reflex 2.2 mmol/L (0.7-2.0)
[2024-07-06] VITALS (22 sets, daily range): BP systolic 118–155; BP diastolic 58–90; PULSE 98–135; RESP 16–24; TEMP 37–39.2; O2SAT 95–99
--- NOTE | 2024-07-06 | ECHO_ITS ---
Patient Info Name: Carol Gee Age: 68 years : 1955 Gender: Female Ht: 65 in Wt: 212 lbs BSA: 2.14 m2 HR: 124 bpm BP: 157 Heart Rhythm: Atrial Fibrillation Technical Quality: Fair Exam Date: 07/06/2024 3:14 PM Exam Location: Echo Lab Patient Status: Inpatient Admit Date: 07/05/2024 Staff Ordering Physician: Susannah Reardon APRN Lcsw: Martha Francis RDCS Attending Provider: José Manuel Graham MD Exam Type: CA echo doppler color flow Study Info Indications - afib Complete two-dimensional, color flow and Doppler transthoracic echocardiogram is performed with contrast to opacify the left ventricle and to improve the deliniation of the left ventricle endocardial borders. Contrast/Agitated Saline Contrast/Ag. Saline: Definity Amount: 2.00 ml Administered By: Martha Francis RDCS Existing IV Access: Yes IV Access Condition: patent with no signs of infiltration Summary 1. Left ventricular chamber dimension is normal. 2. Left ventricular systolic function is normal, estimated at 60-65%. 3. There is moderately increased left ventricular wall thickness. 4. Right ventricular systolic function is normal. 5. Left atrial chamber dimension is mildly enlarged. 6. Right atrial chamber dimension is mildly enlarged. 7. There is mild aortic valve regurgitation. 8. There is mild tricuspid valve regurgitation. 9. The aortic root size at the sinus of Valsalva is mildly dilated. Left Ventricle Left ventricular chamber dimension is normal. Left ventricular systolic function is normal, estimated at 60-65%. There is moderately increased left ventricular wall thickness. The left ventricular diastolic function is indeterminate. Right Ventricle Right ventricular chamber dimension is normal. Right ventricular systolic function is normal. Left Atria Left atrial chamber dimension is mildly enlarged. Right Atria Right atrial chamber dimension is mildly enlarged. Atrial Septum Intact interatrial septum visualized by color flow imaging. Aortic Valve The aortic valve is not well visualized. There is no aortic valve stenosis. There is mild aortic valve regurgitation. There is mild aortic valve calcification. Pulmonic Valve The pulmonic valve is not well visualized. Mitral Valve There is trace mitral valve regurgitation. The mitral valve annulus is mildly calcified. Tricuspid Valve There is mild tricuspid valve regurgitation. Pericardium/Pleural There is no pericardial effusion. Inferior Vena Cava Normal inferior vena cava with >50% collapse upon inspiration consistent with normal right atrial pressure, 3 mmHg. Aorta The aortic root size at the sinus of Valsalva is mildly dilated. Left Ventricular Outflow Tract Name Value Normal LVOT 2D LVOT Diameter 2.0 cm LVOT Doppler LVOT Peak Gradient 4 mmHg LVOT Mean Gradient 2 mmHg LVOT VTI 15 cm LVOT VTI/AV VTI Ratio 0.9 LVOT Stroke Volume 50 ml LVOT CO 13.5 l/min LVOT CI 6.3 l/min/m2 Pulmonic Valve Name Value Normal PV Doppler PV Peak Gradient 3 mmHg Mitral Valve Name Value Normal MV Doppler MV Decel [place] 580 cm/s2 MV PHT 52 ms MV Area (PHT) 4.2 cm2 4.0-5.0 MV Diastolic Function MV E Peak Velocity 105 cm/s MV A Peak Velocity 2 cm/s MV E/A 45.2 MV Decel Time 181 ms MV Annular TDI MV E/e' (Septal) 15.8 <=8.0 MV E/e' (Lateral) 9.9 <=8.0 MV E/e' (Average) 12.8 Tricuspid Valve Name Value Normal TV Regurgitation Doppler TR Peak Velocity 258 cm/s TR Peak Gradient 27 mmHg Estimated PAP/RSVP RA Pressure 3 mmHg <=5 PA Systolic Pressure 30 mmHg <36 RV Systolic Pressure 30 mmHg <36 Aorta Name Value Normal Ascending Aorta Ao Root Diameter (MM) 3.9 cm Ao Root Diam Index (MM) 1.8 cm/m2 Aortic Valve Name Value Normal AV Doppler AV Peak Velocity 129 cm/s AV Peak Gradient 7 mmHg AV Mean Gradient 3 mmHg AV VTI 18 cm AV Area (Cont Eq VTI) 2.8 cm2 >=3.0 AV Area (Cont Eq Alejandro) 2.6 cm2 AV Regurgitation 2D LVOT Area 3.2 cm2 AV Regurgitation Doppler AR Decel Time 1,589 ms AR Decel [place] 272 cm/s2 AR PHT 461 ms Ventricles Name Value Normal LV Dimensions 2D/MM IVS Diastolic Thickness (2D) 1.3 cm 0.6-1.0 LVID Diastole (2D) 4.0 cm 3.8-5.2 LVIW Diastolic Thickness (2D) 1.3 cm 0.6-0.9 LVID Systole (2D) 2.7 cm 2.2-3.5 LVOT Diameter 2.0 cm LV Mass (2D Cubed) 185.43 g 67.00-162.00 LV Mass Index (2D Cubed) 87 g/m2 43-95 Relative Wall Thickness (2D) 0.67 LV Fractional Shortening/Ejection Fraction 2D/MM LV Fractional Shortening (2D) 33 % 27-45 LV EF (2D Teicholz) 62 % 54-74 LV Diastolic Volume (4C MOD) 67 ml LV EF (4C MOD) 54 % LV Diastolic Volume (2C MOD) 48 ml LV EF (2C MOD) 51 % LV Diastolic Volume (BP MOD) 59 ml 46-106 LV Diastolic Volume Index (BP MOD) 28 ml/m2 29-61 LV Systolic Volume (BP MOD) 27 ml 14-42 LV Systolic Volume Index (BP MOD) 13 ml/m2 8-24 LV EF (BP MOD) 54 % 54-74 LV Diastolic Length (4C) 6.1 cm LV Systolic Length (4C) 6.5 cm LV Stroke Volume (4C MOD) 36 ml Atria Name Value Normal LA Dimensions LA Dimension (MM) 4.1 cm 2.7-3.8 LA Volume (4C A-L) 61 ml LA Volume (BP A-L) 61 ml RA Dimensions RA Area (4C) 14.8 cm2 <=18.0 Report Signatures
[2024-07-06 00:22] LABS: MRSA (PCR) NOT DETECTED (NOT DETECTE)
[2024-07-06 00:57] LABS: Glucose Point of Care 202 mg/dl (65-105)
[2024-07-06] MEDS: PIPERACILLIN/TAZ 2.25G/NS 50ML 2.25 GM/50 ML BAG IVPB ×5 (01:00→23:49)
[2024-07-06] MEDS: SODIUM CHLORIDE 0.9% IV 1,000 ML 125 ML IV CONT (04:29)
[2024-07-06] MEDS: POLYMYXIN/TRIMETHOPRIM OPHTH 10 ML DROPS 1 DROP EACH EYE ×5 (04:30→20:40)
[2024-07-06] MEDS: METOPROLOL TARTRATE INJ 5 MG/5 ML VIAL IV PUSH ×3 (04:55→20:38)
[2024-07-06] MEDS: ACETAMINOPHEN 650 MG SUPPOSITORY RECTAL ×2 (04:55→21:09)
[2024-07-06 05:33] LABS: Basophils Percent Auto 0.3 % (0.2-1.2); Eosinophils Percent Auto 0.1 % (0-4.4); Hematocrit 28.6 % (37.0-47.0); Hemoglobin 9.1 g/dL (12.0-15.0); Immature Granulocyte Absolute 0.06 K/mm3 (0.00-0.031); Immature Granulocyte Percent A 0.6 % (0-0.5); Immature Platelet Fraction Pct 6.5 % (0.9-11.2); Lymphocytes Absolute Auto 1.02 K/mm3 (0.9-3.2); Lymphocytes Percent Auto 9.6 % (18.3-44.2); Mean Corpuscular HGB Conc 31.8 g/dl (32-36); Mean Corpuscular Hemoglobin 24.4 pg (26-34); Mean Corpuscular Volume 76.7 fl (80-100); Mean Platelet Volume 11.9 fl (7.4-10.4); Monocytes Absolute Auto 0.8 K/mm3 (0.1-0.6); Monocytes Percent Auto 7.8 % (2.6-8.5); Neutrophils Absolute Auto 8.7 K/mm3 (1.3-6.7); Neutrophils Percent Auto 81.6 % (45.5-73.1); Platelet Count Result 89 k/mm3 (150-375); Red Blood Count 3.73 M/mm3 (4.2-5.4); Red Cell Distribution Width 17.1 % (11.5-14.5); White Blood Count 10.6 K/mm3 (4.5-10.0)
[2024-07-06] MEDS: CENTRAL LINE FLUSH 10 ML IV PUSH ×3 (05:40→20:40)
[2024-07-06 05:49] LABS: Anion Gap 0 mmol/L (4-12); Blood Urea Nitrogen 36 mg/dL (7-17); Calcium 9.7 mg/dL (8.4-10.2); Carbon Dioxide 25 mmol/L (22-30); Chloride 110 mmol/L (98-107); Estimated CRCL calculation 28 ml/min; Estimated Glomerular Filt Rate 25; Glucose 196 mg/dL (65-110); Sodium 135 mmol/L (137-145)
[2024-07-06 05:56] LABS: Platelet Estimate Decreased (Adequate)
[2024-07-06 05:57] LABS: Anisocytosis 1+; Burr Cells 1+; Hypochromasia 1+; Ovalocytes 1+; Poikilocytosis 1+; Schistocytes None Seen
[2024-07-06 06:21] LABS: Erythrocyte Sedimentation Rate 91 mm/hr (0-20)
[2024-07-06 07:33] LABS: CRP 34.1 mg/dL (<1.0)
[2024-07-06 07:51] LABS: Glucose Point of Care 180 mg/dl (65-105)
[2024-07-06] MEDS: VANCOMYCIN 1,500 MG/NS 500 ML 1,500 MG/500 ML BAG 250 MG IVPB (08:29)
[2024-07-06 09:00] LABS: Ammonia < 9 umol/L (9-30)
--- NOTE | 2024-07-06 09:34 | WPDCNINT ---
Assessment and Plan Assessment and plan (1) Severe sepsis: Code(s): A41.9 - Sepsis, unspecified organism; R65.20 - Severe sepsis without septic shock Status: Acute Assessment and Plan: 07/05: Patient presented from [facility], with lethargy, generalized weakness, altered mental status, was found to have left ureteral stone with hydronephrosis, status post cystoscopy, retrograde pyelogram with stent placement to left proximal ureter. Purulent drainage was seen once the stent was placed. -patient was given adequate amount of IV fluids, - lactic acid was initially elevated which has normalized -patient has not required any pressors at this time as blood pressures have been stable -creatinine trending down -07/05/2024: Blood cultures -pending -07/05/2024: Urine culture -pending -patient was on linezolid and Zosyn, (07/05) -07/06: discontinue linezolid and start vancomycin -MRSA is negative 07/05: CTA chest, abdomen, pelvis IMPRESSION: Left-sided hydroureteronephrosis secondary to a 9 mm stone in the proximal to mid left ureter. No pulmonary embolus. No aortic dissection. 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 (2) Acute pyelonephritis: Code(s): N10 - Acute pyelonephritis Status: Acute Assessment and Plan: Acute pyelonephritis, likely related to left ureteral stone and hydronephrosis -continue treatment as above (3) Hydronephrosis due to obstruction of ureter: Code(s): N13.1 - Hydronephrosis with ureteral stricture, not elsewhere classified Status: Acute Assessment and Plan: Urology following, status post cystoscopy, retrograde pyelogram, left proximal stent placement on 07/05/2024 (4) Atrial fibrillation: Qualifiers: Atrial fibrillation type: unspecified chronic Qualified Code(s): I48.20 - Chronic atrial fibrillation, unspecified Code(s): I48.91 - Unspecified atrial fibrillation Status: Chronic Assessment and Plan: Atrial fibrillation RVR, patient does have a history of AFib on apixaban at home. Patient is also on diltiazem and metoprolol at home -patient had a couple of episodes of AFib RVR which showed managed with metoprolol IV -since patient is unable to take oral meds at this time, I started her started on metoprolol IV p.r.n. -hold Eliquis with anticoagulation given thrombocytopenia (5) AMS (altered mental status): Code(s): R41.82 - Altered mental status, unspecified Status: Acute Assessment and Plan: Altered mental status mostly likely secondary to severe sepsis, UTI, pyelonephritis -07/05: CT brain was negative for any acute intracranial abnormality -ammonia levels are normal (6) Type 2 diabetes mellitus: Code(s): E11.9 - Type 2 diabetes mellitus without complications Status: Chronic Assessment and Plan: Accu-Cheks and sliding scale insulin -will hold Lantus since patient is not taking p.o. diet Plan DVT prophylaxis: SCDs, no chemoprophylaxis due to thrombocytopenia Stress ulcer prophylaxis: Protonix Nutrition: NPO for now Code Status: Do not resuscitate Critical Care Time Spent: 49 minutes Discussed with June and maynor El and updated them with patient's condition and plan of care for. I answered all the question Due to a high probability of clinically significant, life threatening deterioration, the patient required my highest level of preparedness to intervene emergently and I personally spent this critical care time directly and personally managing the patient. This critical care time included obtaining a history; examining the patient; pulse oximetry; ordering and review of studies; arranging urgent treatment with development of a management plan; evaluation of patient's response to treatment; frequent reassessment; and discussions with other providers. It was exclusive of separately billable procedures and treating other patients and teaching time. Please see Assessment and Plan section and the rest of the note for further information on patient assessment and treatment This dictation may have been done utilizing a voice recognition system. Attempts have been made to correct errors. However, there may be uncorrected grammatical, spelling, and recognitions errors present. Business Administration Program Chair Consult Note Consult date: 07/06/24 Reason for consult: Severe sepsis, pyelonephritis, acute kidney injury, hydronephrosis related to calculus of the proximal left ureter, hypotension, altered mental status HPI: Carol Gee is a 68 year old female hx afib on anticoagulation, DM II, HTN, aortic aneurysm, hx PE, admitted for abdominal pain and nausea, altered mental status presented to the ED on 07/05/2024, with complains of altered mental status, hypotension Patient lives at [facility]. She also complained of some nausea. In the ER she was found to be in AFib RVR was given diltiazem with some improvement, UA was positive, treat with started with Zosyn for UTI. CT scan of the chest abdomen pelvis showed obstructive proximal left ureteral stone with hydronephrosis, Urology was consulted and patient was taken for cystoscopy status post left ureteral stent placement. According to the operative notes copious purulence was seen that expressed from the ureter once the stent was placed. Patient was hypotensive, received adequate amount of IV fluids central line was placed in the OR. Patient was transferred to the ICU for further manage Patient seen and examined the ICU this morning, lethargic, opens her eyes, follows simple commands and answers to few questions. She was able 10 minute she is at a hospital and her date of . Denies any pain or shortness of breath, not participating much in the conversation. Patient is hemodynamically stable, not requiring any pressors. Ammonia level this morning were normal. Remains on 2 L nasal cannula. Urine output has been adequate, creatinine trending down, white blood cell count has improved. Platelet counts are decreased likely related to severe sepsis. Lactic acid has normalized Review of Systems Review of Systems: All systems reviewed & are unremarkable except as noted in HPI and below PMFSH Past Medical History Medical History ALIVIA (obstructive sleep apnea) Sepsis Chronic kidney disease Depression Obstructive sleep apnea treated with BiPAP Psoriasis Type 2 diabetes mellitus Hyperlipidemia COVID-19 Spinal stenosis Ascending aortic aneurysm Atrial fibrillation No longer on anticoagulation as of fall 2022 due to history of falls. Hypothyroidism Kidney stone Psoriatic arthritis Vitamin D deficiency Essential (primary) hypertension Surgical History Surgical History History of hysterectomy History of bunionectomy Family History Family History Sibling Family history of respiratory disorder Family history of diabetes mellitus in first degree relative Family history of congestive heart failure Acute myocardial infarction Mother Family history of chronic obstructive pulmonary disease Family history of congestive heart failure Father Acute myocardial infarction Other Family history of arthritis Family history of malignant neoplasm Family history of mental disorder Hypertension Social History Social History Social History: Surrogate medical decision maker: June Gee or Sienna Roy, daughters. Code status: Full code. Smoking status: Never smoker Second hand tobacco smoke exposure: Yes Alcohol intake: never Substance use: never Substance use type: does not use Do You Feel Safe in your Home?: Yes Lack of Transportation: No Lack of Food: Never True Current Housing: I Have Housing Concerned About Future Housing: No Difficulty Paying Gas/Electric Bills: No Difficulty Paying for Meds: No Currently Unemployed: No Education: High School Diploma/GED Difficulty w/ Childcare or Family Care: No Additional living arrangements comments: The patient lives in her own home in [place]. Spiritual care concerns: No Meds Home Medications and Allergies Home Medications ?Medication ?Instructions ?Recorded ?Confirmed ?Type diltiazem HCl 120 mg capsule,24 120 mg PO DAILY 06/29/19 07/06/24 History hr,extended release metoprolol succinate 25 mg 25 mg PO DAILY 01/25/21 07/06/24 History tablet,extended release 24 hr escitalopram oxalate 20 mg tablet 20 mg PO DAILY #30 tabs 03/28/21 07/06/24 Rx blood-glucose meter (OneTouch #1 ea 01/04/22 07/06/24 Rx Ultra2 Meter) spirometers and accessories #1 ea 02/20/22 07/06/24 Rx aspirin 81 mg tablet,delayed 81 mg PO DAILY 08/20/22 07/06/24 History release buspirone 30 mg tablet 30 mg PO BID #1 tablet 10/02/22 07/06/24 Rx quetiapine 300 mg tablet 300 mg PO QHS #1 tablet 10/02/22 07/06/24 Rx quetiapine 50 mg tablet 50 mg PO DAILY #1 tablet 10/02/22 07/06/24 Rx cholecalciferol (vitamin D3) 10 2,000 unit PO DAILY 12/17/22 07/06/24 History mcg (400 unit) capsule lancets #200 ea 12/17/22 07/06/24 Rx polyethylene glycol 3350 17 17 g PO DAILY 1 month #510 grams 05/21/23 07/06/24 Rx gram/dose oral powder (Miralax) levothyroxine 150 mcg tablet 150 mcg PO DAILY #90 tabs 08/29/23 07/06/24 Rx (Euthyrox) magnesium oxide 400 mg (241.3 mg 800 mg (2 x 400 mg (241.3 mg 09/30/23 07/06/24 Rx magnesium) tablet magnesium)) PO DAILY #180 tabs blood sugar diagnostic (OneTouch #100 ea 02/17/24 07/06/24 Rx Ultra Test strips) pen needle, diabetic 31 gauge x #100 ea 03/23/24 07/06/24 Rx 5/16 (TRUEplus Pen Needle) apixaban 5 mg tablet (Eliquis) 5 mg PO BID 03/27/24 07/06/24 History insulin degludec 100 unit/mL (3 27 unit subcut DAILY 03/27/24 07/06/24 History mL) subcutaneous pen (Tresiba FlexTouch U-100 insulin) risperidone 1 mg tablet 1.5 mg PO BID 03/27/24 07/06/24 History acetaminophen 650 mg tablet 650 mg PO Q6H PRN y 03/30/24 07/06/24 History tramadol 50 mg tablet 50 mg PO Q6H PRN pain 4-6 #20 tabs 04/03/24 07/06/24 Rx acetaminophen 325 mg tablet 650 mg PO BID pain 07/06/24 07/06/24 History (Tylenol) bisacodyl 10 mg rectal suppository 10 mg RECTAL HS PRN constipation 07/06/24 07/06/24 History (Dulcolax (bisacodyl)) docusate sodium 100 mg tablet 100 mg PO DAILY PRN constipation 07/06/24 07/06/24 History ondansetron 4 mg disintegrating 4 mg PO Q8H PRN nausea 07/06/24 07/06/24 History tablet Allergies Allergy/AdvReac Type Severity Reaction Status Date / Time Cephalosporins Allergy Unknown Hives Verified 07/05/24 17:07 ciprofloxacin Allergy Unknown Hives Verified 07/05/24 17:07 codeine Allergy Unknown Hives Verified 07/05/24 17:07 erythromycin base Allergy Unknown Hives Verified 07/05/24 17:07 levofloxacin Allergy Unknown Hives Verified 07/05/24 17:07 lidocaine Allergy Unknown Hives Verified 07/05/24 17:07 Macrolide Antibiotics Allergy Unknown Hives Verified 07/05/24 17:07 Quinolones Allergy Unknown Hives Verified 07/05/24 17:07 Sulfa (Sulfonamide Allergy Unknown Hives Verified 07/05/24 17:07 Antibiotics) theophylline Allergy Unknown Hives Verified 07/05/24 17:07 citalopram AdvReac Unknown Agitated Verified 07/05/24 17:07 ALL ASHLEY DRUGS Allergy Mild ITCHING, Uncoded 07/05/24 17:07 BURNING, SWELLING AT SITE Vital Signs Vital Signs - 24 hr 07/05/24 10:42 07/05/24 10:54 07/05/24 10:54 Temperature 97.2 F L Pulse Rate 149 H 114 H Respiratory Rate 16 Blood Pressure 135/66 Pulse Oximetry 94 97 Oxygen Delivery Room Air Nasal Cannula Oxygen Flow Rate 2 Fraction of Inspired Oxygen 07/05/24 11:02 07/05/24 11:16 07/05/24 11:29 Temperature 97.9 F Pulse Rate 146 H 136 H 142 H Respiratory Rate 22 H 21 H 18 Blood Pressure 124/54 L 97/71 L 118/70 Pulse Oximetry 99 Oxygen Delivery Oxygen Flow Rate Fraction of Inspired Oxygen 07/05/24 11:30 07/05/24 11:31 07/05/24 11:38 Temperature Pulse Rate 137 H 141 H 150 H Respiratory Rate 19 22 H 23 H Blood Pressure 144/118 H 104/69 Pulse Oximetry Oxygen Delivery Oxygen Flow Rate Fraction of Inspired Oxygen 07/05/24 12:00 07/05/24 12:01 07/05/24 12:31 Temperature Pulse Rate 127 H 117 H 121 H Respiratory Rate 22 H 32 H 23 H Blood Pressure 127/70 127/99 H Pulse Oximetry 96 97 Oxygen Delivery Oxygen Flow Rate Fraction of Inspired Oxygen 07/05/24 13:00 07/05/24 13:01 07/05/24 13:44 Temperature 97.4 F L Pulse Rate 108 H 113 H 126 H Respiratory Rate 22 H 30 H Blood Pressure 116/57 L Pulse Oximetry Oxygen Delivery Oxygen Flow Rate Fraction of Inspired Oxygen 07/05/24 14:01 07/05/24 14:28 07/05/24 14:30 Temperature Pulse Rate 120 H 108 H 103 H Respiratory Rate 19 18 16 Blood Pressure 132/73 Pulse Oximetry 94 96 Oxygen Delivery Oxygen Flow Rate Fraction of Inspired Oxygen 07/05/24 14:45 07/05/24 15:00 07/05/24 15:09 Temperature Pulse Rate 106 H 117 H 100 Respiratory Rate 19 20 18 Blood Pressure 130/69 Pulse Oximetry 97 96 94 Oxygen Delivery Oxygen Flow Rate Fraction of Inspired Oxygen 07/05/24 15:31 07/05/24 16:01 07/05/24 16:31 Temperature Pulse Rate 105 H 113 H 109 H Respiratory Rate 18 18 18 Blood Pressure 138/74 122/79 129/81 Pulse Oximetry 97 97 98 Oxygen Delivery Oxygen Flow Rate Fraction of Inspired Oxygen 07/05/24 17:01 07/05/24 18:29 07/05/24 18:39 Temperature 98.7 F 99.6 F Pulse Rate 133 H 135 H 119 H Respiratory Rate 18 20 Blood Pressure 126/51 L 141/73 H Pulse Oximetry 97 94 Oxygen Delivery Oxygen Flow Rate Fraction of Inspired Oxygen 07/05/24 18:50 07/05/24 20:00 07/05/24 20:00 Temperature 99.5 F Pulse Rate 122 H 106 H 107 H Respiratory Rate 19 16 Blood Pressure 117/58 L Pulse Oximetry 96 96 Oxygen Delivery Nasal Cannula Oxygen Flow Rate 2 Fraction of Inspired Oxygen 07/05/24 20:00 07/05/24 22:00 07/05/24 22:00 Temperature Pulse Rate 109 H 100 100 Respiratory Rate 21 H Blood Pressure 123/61 Pulse Oximetry 95 Oxygen Delivery Oxygen Flow Rate Fraction of Inspired Oxygen 07/06/24 00:00 07/06/24 00:00 07/06/24 00:00 Temperature 99.2 F Pulse Rate 106 H 102 H 103 H Respiratory Rate 20 16 Blood Pressure 118/58 L Pulse Oximetry 96 96 Oxygen Delivery Nasal Cannula Oxygen Flow Rate 2 Fraction of Inspired Oxygen 07/06/24 00:00 07/06/24 02:00 07/06/24 02:00 Temperature Pulse Rate 102 H 102 H 102 H Respiratory Rate 22 H Blood Pressure 155/60 H Pulse Oximetry 96 Oxygen Delivery Oxygen Flow Rate Fraction of Inspired Oxygen 07/06/24 04:00 07/06/24 04:00 07/06/24 04:00 Temperature 101.7 F H Pulse Rate 110 H 110 H 104 H Respiratory Rate 23 H 24 H Blood Pressure 123/58 L Pulse Oximetry 96 96 Oxygen Delivery Nasal Cannula Oxygen Flow Rate 2 Fraction of Inspired Oxygen 07/06/24 04:55 07/06/24 04:55 07/06/24 05:27 Temperature 101.7 F H Pulse Rate 135 H 109 H Respiratory Rate Blood Pressure Pulse Oximetry Oxygen Delivery Oxygen Flow Rate Fraction of Inspired Oxygen 07/06/24 05:55 07/06/24 06:00 07/06/24 06:00 Temperature 99.7 F H 99.7 F H Pulse Rate 100 100 Respiratory Rate 21 H Blood Pressure 125/69 Pulse Oximetry 95 Oxygen Delivery Oxygen Flow Rate Fraction of Inspired Oxygen 07/06/24 08:00 07/06/24 08:00 07/06/24 08:00 Temperature 98.9 F Pulse Rate 103 H 98 Respiratory Rate 20 Blood Pressure 122/74 Pulse Oximetry 99 98 Oxygen Delivery Nasal Cannula Oxygen Flow Rate 2 Fraction of Inspired Oxygen 07/06/24 09:23 Temperature Pulse Rate Respiratory Rate Blood Pressure Pulse Oximetry 98 Oxygen Delivery Nasal Cannula Oxygen Flow Rate 2 Fraction of Inspired Oxygen 28 Exam Narrative: General: Pale-looking female, appears older than her age. Currently no acute distress HEENT:? Pupils dilated but reactive, sclerae is clear, dry oral mucosa Neck:? Supple Respiratory:? Clear to auscultation bilaterally, decreased at bases, no wheezing Cardiac:? Irregularly irregular, rates 90s to 100s Abdomen:? Soft, nontender, nondistended, hypoactive bowel sound Extremities:? Palpable pedal pulses, trace edema Neuro:? Patient is lethargic, opens eyes to name, follows simple commands, able to tell that she is at the hospital and her date of Skin:? Dry skin on lower extremities bilaterally, no other lesions noted Psych:? Unable to assess Results Labs 07/06/24 05:24 07/06/24 05:24 Labs: Short CBC 07/05/24 07/06/24 Range/Units 11:04 05:24 WBC 16.7 H 10.6 H (4.5-10.0) K/mm3 Hgb 10.8 L 9.1 L (12.0-15.0) g/dL Hct 34.2 L 28.6 L (37.0-47.0) % Plt Count 111 L 89 L (150-375) k/mm3 BMP 07/05/24 07/05/24 07/06/24 11:04 18:58 05:24 Sodium 135 L 135 L 135 L Potassium 4.4 4.2 4.0 Chloride 104 108 H 110 H Carbon Dioxide 26 23 25 BUN 33 H D 33 H 36 H Creatinine 2.40 H 2.30 H 2.00 H Glucose 226 H 222 H 196 H Calcium 10.3 H 9.5 9.7 Cardiac Enzymes 07/05/24 07/05/24 07/05/24 Range/Units 11:04 18:58 18:58 Troponin I 0.028 0.051 H* D Cancelled (0.000-0.034) ng/mL Liver Function 07/05/24 07/05/24 Range/Units 11:04 18:58 Total Bilirubin 1.2 0.9 (0.2-1.3) mg/dL AST 62 H 56 H (14-36) U/L ALT 33 30 (6-35) U/L Alkaline Phosphatase 106 88 (38-126) U/L Albumin 3.5 3.0 L (3.5-5.1) g/dL Urine 07/05/24 Range/Units 11:37 Urine Color Yellow (Yellow) Urine Appearance Cloudy H (Clear) Urine pH 5.5 (5.0-9.0) Ur Specific [place] 1.019 (1.001-1.035) Urine Protein 1+ H (Negative) mg/dL Urine Glucose (UA) Negative (Negative) mg/dL Quality VTE Prophylaxis VTE prophylaxis: mechanical ordered If No VTE Prophylaxis Answer both mechanical and pharmacologic: Reason no pharmacologic proph: medical contraindication thrombocytopenia Hospitalist MIPS Advance Care Plan I have confirmed that the patient's Advanced Care Plan is present, code status is documented, or surrogate decision maker is listed in patient medical record.: Yes Medication Reconciliation I have utilized all available resources to obtain, update and review the patients current medications (includes all prescriptions, OTC, herbals, cannabis, and nutritional supplements).: Yes
--- NOTE | 2024-07-06 11:08 | P.PNUR_ITS ---
Progress Note: A&P Assessment and Plan (1) Hydronephrosis due to obstruction of ureter: Code(s): N13.1 - Hydronephrosis with ureteral stricture, not elsewhere classified Status: Acute (2) Severe sepsis: Code(s): A41.9 - Sepsis, unspecified organism; R65.20 - Severe sepsis without septic shock Status: Acute (3) Hydronephrosis: Code(s): N13.30 - Unspecified hydronephrosis Status: Acute (4) Calculus of proximal left ureter: Code(s): N20.1 - Calculus of ureter Status: Acute Plan Care per ICU. Ureteral stent in place. Reid catheter patent draining. Will not plan on definitive stone management she is much improved Subjective Subjective Date/Time Seen: 07/06/24 11:08 Interval history: Remains in ICU. Discussed with ICU team. Patient is not currently communicative Exam Narrative: Lethargic Catheter clear. Patent draining Objective Data Vital Signs Vital Signs: Vital Signs - 24 hr 07/05/24 11:16 07/05/24 11:29 07/05/24 11:30 Temperature Pulse Rate 136 H 142 H 137 H Respiratory Rate 21 H 18 19 Blood Pressure 97/71 L 118/70 Pulse Oximetry Oxygen Delivery Oxygen Flow Rate Fraction of Inspired Oxygen 07/05/24 11:31 07/05/24 11:38 07/05/24 12:00 Temperature Pulse Rate 141 H 150 H 127 H Respiratory Rate 22 H 23 H 22 H Blood Pressure 144/118 H 104/69 Pulse Oximetry Oxygen Delivery Oxygen Flow Rate Fraction of Inspired Oxygen 07/05/24 12:01 07/05/24 12:31 07/05/24 13:00 Temperature Pulse Rate 117 H 121 H 108 H Respiratory Rate 32 H 23 H 22 H Blood Pressure 127/70 127/99 H Pulse Oximetry 96 97 Oxygen Delivery Oxygen Flow Rate Fraction of Inspired Oxygen 07/05/24 13:01 07/05/24 13:44 07/05/24 14:01 Temperature 97.4 F L Pulse Rate 113 H 126 H 120 H Respiratory Rate 30 H 19 Blood Pressure 116/57 L 132/73 Pulse Oximetry Oxygen Delivery Oxygen Flow Rate Fraction of Inspired Oxygen 07/05/24 14:28 07/05/24 14:30 07/05/24 14:45 Temperature Pulse Rate 108 H 103 H 106 H Respiratory Rate 18 16 19 Blood Pressure Pulse Oximetry 94 96 97 Oxygen Delivery Oxygen Flow Rate Fraction of Inspired Oxygen 07/05/24 15:00 07/05/24 15:09 07/05/24 15:31 Temperature Pulse Rate 117 H 100 105 H Respiratory Rate 20 18 18 Blood Pressure 130/69 138/74 Pulse Oximetry 96 94 97 Oxygen Delivery Oxygen Flow Rate Fraction of Inspired Oxygen 07/05/24 16:01 07/05/24 16:31 07/05/24 17:01 Temperature 98.7 F Pulse Rate 113 H 109 H 133 H Respiratory Rate 18 18 18 Blood Pressure 122/79 129/81 126/51 L Pulse Oximetry 97 98 97 Oxygen Delivery Oxygen Flow Rate Fraction of Inspired Oxygen 07/05/24 18:29 07/05/24 18:39 07/05/24 18:50 Temperature 99.6 F Pulse Rate 135 H 119 H 122 H Respiratory Rate 20 Blood Pressure 141/73 H Pulse Oximetry 94 Oxygen Delivery Oxygen Flow Rate Fraction of Inspired Oxygen 07/05/24 20:00 07/05/24 20:00 07/05/24 20:00 Temperature 99.5 F Pulse Rate 106 H 107 H 109 H Respiratory Rate 19 16 Blood Pressure 117/58 L Pulse Oximetry 96 96 Oxygen Delivery Nasal Cannula Oxygen Flow Rate 2 Fraction of Inspired Oxygen 07/05/24 22:00 07/05/24 22:00 07/06/24 00:00 Temperature 99.2 F Pulse Rate 100 100 106 H Respiratory Rate 21 H 20 Blood Pressure 123/61 118/58 L Pulse Oximetry 95 96 Oxygen Delivery Oxygen Flow Rate Fraction of Inspired Oxygen 07/06/24 00:00 07/06/24 00:00 07/06/24 00:00 Temperature Pulse Rate 102 H 103 H 102 H Respiratory Rate 16 Blood Pressure Pulse Oximetry 96 Oxygen Delivery Nasal Cannula Oxygen Flow Rate 2 Fraction of Inspired Oxygen 07/06/24 02:00 07/06/24 02:00 07/06/24 04:00 Temperature 101.7 F H Pulse Rate 102 H 102 H 110 H Respiratory Rate 22 H 23 H Blood Pressure 155/60 H 123/58 L Pulse Oximetry 96 96 Oxygen Delivery Oxygen Flow Rate Fraction of Inspired Oxygen 07/06/24 04:00 07/06/24 04:00 07/06/24 04:55 Temperature Pulse Rate 110 H 104 H 135 H Respiratory Rate 24 H Blood Pressure Pulse Oximetry 96 Oxygen Delivery Nasal Cannula Oxygen Flow Rate 2 Fraction of Inspired Oxygen 07/06/24 04:55 07/06/24 05:27 07/06/24 05:55 Temperature 101.7 F H 99.7 F H Pulse Rate 109 H Respiratory Rate Blood Pressure Pulse Oximetry Oxygen Delivery Oxygen Flow Rate Fraction of Inspired Oxygen 07/06/24 06:00 07/06/24 06:00 07/06/24 08:00 Temperature 99.7 F H 98.9 F Pulse Rate 100 100 103 H Respiratory Rate 21 H 20 Blood Pressure 125/69 122/74 Pulse Oximetry 95 99 Oxygen Delivery Oxygen Flow Rate Fraction of Inspired Oxygen 07/06/24 08:00 07/06/24 08:00 07/06/24 09:23 Temperature Pulse Rate 98 Respiratory Rate Blood Pressure Pulse Oximetry 98 98 Oxygen Delivery Nasal Cannula Nasal Cannula Oxygen Flow Rate 2 2 Fraction of Inspired Oxygen 28 07/06/24 10:00 07/06/24 10:00 Temperature Pulse Rate 109 H 109 H Respiratory Rate 20 Blood Pressure 140/86 Pulse Oximetry 98 Oxygen Delivery Oxygen Flow Rate Fraction of Inspired Oxygen Intake/Output Intake/Output: Intake & Output 07/03/24 07/04/24 07/05/24 07/06/24 23:59 23:59 23:59 23:59 Intake Total 3691.7 1247.9 Output Total 450 Balance 3691.7 797.9 Meds/Results Medications: Active Medications Generic Name Dose Route Start Last Admin Trade Name Freq PRN Reason Stop Dose Admin Acetaminophen 650 mg 07/05/24 12:59 Acetaminophen 325 Mg Tablet PO Q4H PRN Mild Pain (1-3) or Fever Acetaminophen 650 mg 07/06/24 04:59 07/06/24 04:55 Acetaminophen 650 Mg Suppository RECTAL 650 mg Q6H PRN Administration Mild Pain (1-3/ Fever IF NPO Dextrose 12.5 gm 07/05/24 13:02 Dextrose 50% 25 Gm/50 Ml Syringe IV PUSH PRN PRN Hypoglycemia Protocol Dextrose 12.5 gm 07/05/24 18:35 Dextrose 50% 25 Gm/50 Ml Syringe IV PUSH PRN PRN Hypoglycemia Protocol Diltiazem HCl 120 mg 07/05/24 16:20 07/05/24 18:39 Diltiazem Hcl Cd 120 Mg Cap.24hr PO Not Given QAM CRYSTAL Escitalopram Oxalate 20 mg 07/06/24 09:00 Escitalopram Oxalate 10 Mg Tablet PO DAILY CRYSTAL Glucagon 1 mg 07/05/24 13:02 Glucagon For Inj 1 Mg Vial IM PRN PRN Hypoglycemia Protocol Glucagon 1 mg 07/05/24 18:35 Glucagon For Inj 1 Mg Vial IM PRN PRN Hypoglycemia Protocol Glucose 15 gm 07/05/24 13:02 Glucose Oral Gel 15 Gm Of Glucse In 37.5 Gm Tube PO PRN PRN Hypoglycemia Protocol Glucose 15 gm 07/05/24 18:35 Glucose Oral Gel 15 Gm Of Glucse In 37.5 Gm Tube PO PRN PRN Hypoglycemia Protocol Piperacillin Sod/Tazobactam Sod 2.25 gm in 50 mls @ 100 mls/hr 07/05/24 18:00 07/06/24 06:10 Zosyn 2.25 Gm/Ns 50 Ml IVPB Infused Q6HR CRYSTAL Infusion Dextrose 1,000 mls @ 100 mls/hr 07/05/24 13:02 Dextrose 5% 1,000 Ml IVPB PRN PRN Hypoglycemia Protocol Dextrose 1,000 mls @ 100 mls/hr 07/05/24 18:35 Dextrose 5% 1,000 Ml IVPB PRN PRN Hypoglycemia Protocol Sodium Chloride 1,000 mls @ 75 mls/hr 07/06/24 10:07 Normal Saline Iv IV CONT 07/06/24 23:25 .[id number] [facility] Insulin Aspart 4 units 07/05/24 17:00 07/06/24 08:24 Insulin Aspart (*Bkc) 100 Units/Ml SUB-Q Not Given TIDWM [facility] Insulin Aspart 3 - 6 units 07/06/24 08:00 07/06/24 08:24 Insulin Aspart (*Bkc) 100 Units/Ml SUB-Q Not Given TIDWM [facility] Protocol Insulin Aspart 1 - 3 units 07/05/24 21:00 07/05/24 21:00 Insulin Aspart (*Bkc) 100 Units/Ml SUB-Q Not Given HS [facility] Protocol Insulin Glargine 12 units 07/06/24 09:00 Insulin Glargine (*Bkc) 100 Units/Ml SUB-Q DAILY [facility] Metoprolol Tartrate 12.5 mg 07/05/24 13:00 07/06/24 05:27 Metoprolol Tartrate 12.5 Mg Tablet PO Not Given Q6HR [facility] Metoprolol Tartrate 5 mg 07/06/24 07:19 Metoprolol Tartrate Inj 5 Mg/5 Ml Vial IV PUSH Q6H PRN Tachycardia Ondansetron HCl 4 mg 07/05/24 12:59 Ondansetron Inj 4 Mg/2 Ml Vial IV PUSH Q4H PRN Nausea Pantoprazole Sodium 40 mg 07/07/24 09:00 Pantoprazole Sodium Iv 40 Mg Vial IV PUSH QAM CRYSTAL Perflutren Lipid Microsphere 0 ml 07/05/24 15:28 Perflutren Lipid Microspheres 1.5 Ml Vial Diluted To 10 Ml Total Volume IV PUSH 07/08/24 15:28 ONCE PRN adequate visualization Protocol Polymyxin/Trimethoprim Sulfate 1 drop 07/05/24 17:00 07/06/24 08:29 Polymyxin/Trimethoprim Ophth 10 Ml Drops EACH EYE 1 drop Q4HWA CRYSTAL Administration Sodium Chloride 10 ml 07/05/24 22:00 07/06/24 05:40 Central Line Flush IV PUSH 10 ml Q8HR CRYSTAL Administration Sodium Chloride 20 ml 07/05/24 20:47 Central Line Flush IV PUSH PRN PRN after blood draws Vancomycin HCl 1 each 07/06/24 08:57 Vancomycin For Acute Kidney Injury IVPB PRN PRN Vancomycin Protocol Radiology Results: ITS Impressions Head CT 07/05/24 14:26 IMPRESSION: Cerebral atherosclerosis and proximal vessel ischemic changes of the cerebral white matter No acute intracranial finding or significant change since 01/06/2018 Chest/Abdomen/Pelvis CTA 07/05/24 14:55 IMPRESSION: Left-sided hydroureteronephrosis secondary to a 9 mm stone in the proximal to mid left ureter. No pulmonary embolus. No aortic dissection. 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 Chest X-Ray 07/05/24 18:55 IMPRESSION: No focal infiltrate or effusion. Right internal jugular central venous catheter in good position and ready for immediate use Labs Labs: Laboratory Results - last 24 hr 07/05/24 07/05/24 07/05/24 11:04 11:04 11:06 WBC 16.7 H RBC 4.46 Hgb 10.8 L Hct 34.2 L MCV 76.7 L MCH 24.2 L MCHC 31.6 L RDW 17.0 H Plt Count 111 L MPV 11.5 H Immature Gran % (Auto) 0.7 H Neut % (Auto) 84.5 H Lymph % (Auto) 7.7 L [place] % (Auto) 6.6 Eos % (Auto) 0.2 Baso % (Auto) 0.3 Lymph # (Auto) 1.28 [place] # (Auto) 1.1 H Eos # (Auto) 0.0 Baso # (Auto) 0.1 Abs Immat Gran (auto) 0.12 H Absolute Neuts (auto) 14.1 H Absolute Nucleated RBC 0.000 Nucleated RBC % 0.0 Platelet Estimate % Immature Plt Fraction 6.3 Hypochromasia Poikilocytosis Anisocytosis Ovalocytes [place] Cells Schistocytes ESR PT 21.7 H INR 1.9 APTT 39.7 H VBG pH VBG pCO2 VBG pO2 VBG HCO3 O2 Delivery Device O2 Liters/Min FiO2 Sodium 135 L Potassium 4.4 Chloride 104 Carbon Dioxide 26 Anion Gap 5 BUN 33 H D Creatinine 2.40 H Estim Creat Clear Calc 24 Estimated GFR 20 L Glucose 226 H POC Capillary Glucose Lactic Acid Calcium 10.3 H Phosphorus 3.7 Magnesium 1.8 Total Bilirubin 1.2 AST 62 H ALT 33 Alkaline Phosphatase 106 Ammonia Troponin I 0.028 C-Reactive Protein NT-Pro-B Natriuret Pep 4640 H Cancelled Total Protein 7.0 Albumin 3.5 TSH (Reflex) Urine Color Urine Appearance Urine pH Ur Specific [place] Urine Protein Urine Glucose (UA) Urine Ketones Ur Blood (Man) Urine Nitrate Urine Bilirubin Urine Urobilinogen Leukocyte Esterase Rfl Urine RBC Urine WBC Ur Squamous Epith Cells Urine Bacteria Urine Casts Nasal MRSA (PCR) Influenza A (RT-PCR) Negative Influenza B (RT-PCR) Negative RSV (RT-PCR) Negative SARS-CoV-2 RNA (RT-PCR) Negative 07/05/24 07/05/24 07/05/24 11:37 12:49 14:33 WBC RBC Hgb Hct MCV MCH MCHC RDW Plt Count MPV Immature Gran % (Auto) Neut % (Auto) Lymph % (Auto) [place] % (Auto) Eos % (Auto) Baso % (Auto) Lymph # (Auto) [place] # (Auto) Eos # (Auto) Baso # (Auto) Abs Immat Gran (auto) Absolute Neuts (auto) Absolute Nucleated RBC Nucleated RBC % Platelet Estimate % Immature Plt Fraction Hypochromasia Poikilocytosis Anisocytosis Ovalocytes [place] Cells Schistocytes ESR PT INR APTT VBG pH 7.269 L VBG pCO2 48.5 H VBG pO2 < 27.0 L VBG HCO3 21.7 L O2 Delivery Device Nasal cannula O2 Liters/Min 2.0 FiO2 28 Sodium Potassium Chloride Carbon Dioxide Anion Gap BUN Creatinine Estim Creat Clear Calc Estimated GFR Glucose POC Capillary Glucose Lactic Acid 4.4 H* Calcium Phosphorus Magnesium Total Bilirubin AST ALT Alkaline Phosphatase Ammonia Troponin I C-Reactive Protein NT-Pro-B Natriuret Pep Total Protein Albumin TSH (Reflex) Urine Color Yellow Urine Appearance Cloudy H Urine pH 5.5 Ur Specific [place] 1.019 Urine Protein 1+ H Urine Glucose (UA) Negative Urine Ketones Trace H Ur Blood (Man) 2+ H Urine Nitrate Negative Urine Bilirubin Negative Urine Urobilinogen 0.2 Leukocyte Esterase Rfl 2+ H Urine RBC 0-2 Urine WBC 51-100 H Ur Squamous Epith Cells None seen Urine Bacteria 4+ H Urine Casts 0-2 Nasal MRSA (PCR) Influenza A (RT-PCR) Influenza B (RT-PCR) RSV (RT-PCR) SARS-CoV-2 RNA (RT-PCR) 07/05/24 07/05/24 07/05/24 15:31 18:41 18:58 WBC RBC Hgb Hct MCV MCH MCHC RDW Plt Count MPV Immature Gran % (Auto) Neut % (Auto) Lymph % (Auto) [place] % (Auto) Eos % (Auto) Baso % (Auto) Lymph # (Auto) [place] # (Auto) Eos # (Auto) Baso # (Auto) Abs Immat Gran (auto) Absolute Neuts (auto) Absolute Nucleated RBC Nucleated RBC % Platelet Estimate % Immature Plt Fraction Hypochromasia Poikilocytosis Anisocytosis Ovalocytes [place] Cells Schistocytes ESR PT INR APTT VBG pH VBG pCO2 VBG pO2 VBG HCO3 O2 Delivery Device O2 Liters/Min FiO2 Sodium 135 L Potassium 4.2 Chloride 108 H Carbon Dioxide 23 Anion Gap 4 BUN 33 H Creatinine 2.30 H Estim Creat Clear Calc 25 Estimated GFR 21 L Glucose 222 H POC Capillary Glucose 182 H Lactic Acid Cancelled 4.0 H Calcium 9.5 Phosphorus Magnesium Total Bilirubin 0.9 AST 56 H ALT 30 Alkaline Phosphatase 88 Ammonia Troponin I 0.051 H* D C-Reactive Protein NT-Pro-B Natriuret Pep Total Protein Albumin TSH (Reflex) Urine Color Urine Appearance Urine pH Ur Specific [place] Urine Protein Urine Glucose (UA) Urine Ketones Ur Blood (Man) Urine Nitrate Urine Bilirubin Urine Urobilinogen Leukocyte Esterase Rfl Urine RBC Urine WBC Ur Squamous Epith Cells Urine Bacteria Urine Casts Nasal MRSA (PCR) Influenza A (RT-PCR) Influenza B (RT-PCR) RSV (RT-PCR) SARS-CoV-2 RNA (RT-PCR) 07/05/24 07/05/24 07/05/24 18:58 20:44 22:52 WBC RBC Hgb Hct MCV MCH MCHC RDW Plt Count MPV Immature Gran % (Auto) Neut % (Auto) Lymph % (Auto) [place] % (Auto) Eos % (Auto) Baso % (Auto) Lymph # (Auto) [place] # (Auto) Eos # (Auto) Baso # (Auto) Abs Immat Gran (auto) Absolute Neuts (auto) Absolute Nucleated RBC Nucleated RBC % Platelet Estimate % Immature Plt Fraction Hypochromasia Poikilocytosis Anisocytosis Ovalocytes [place] Cells Schistocytes ESR PT INR APTT VBG pH VBG pCO2 VBG pO2 VBG HCO3 O2 Delivery Device O2 Liters/Min FiO2 Sodium Potassium Chloride Carbon Dioxide Anion Gap BUN Creatinine Estim Creat Clear Calc Estimated GFR Glucose POC Capillary Glucose 197 H Lactic Acid 2.2 H Calcium Phosphorus Magnesium Total Bilirubin AST ALT Alkaline Phosphatase Ammonia Troponin I Cancelled C-Reactive Protein NT-Pro-B Natriuret Pep Total Protein 6.0 L Albumin 3.0 L TSH (Reflex) 1.390 Urine Color Urine Appearance Urine pH Ur Specific [place] Urine Protein Urine Glucose (UA) Urine Ketones Ur Blood (Man) Urine Nitrate Urine Bilirubin Urine Urobilinogen Leukocyte Esterase Rfl Urine RBC Urine WBC Ur Squamous Epith Cells Urine Bacteria Urine Casts Nasal MRSA (PCR) Influenza A (RT-PCR) Influenza B (RT-PCR) RSV (RT-PCR) SARS-CoV-2 RNA (RT-PCR) 07/05/24 07/06/24 07/06/24 23:07 00:46 05:24 WBC 10.6 H RBC 3.73 L Hgb 9.1 L Hct 28.6 L MCV 76.7 L MCH 24.4 L MCHC 31.8 L RDW 17.1 H Plt Count 89 L MPV 11.9 H Immature Gran % (Auto) 0.6 H Neut % (Auto) 81.6 H Lymph % (Auto) 9.6 L [place] % (Auto) 7.8 Eos % (Auto) 0.1 Baso % (Auto) 0.3 Lymph # (Auto) 1.02 [place] # (Auto) 0.8 H Eos # (Auto) 0.0 Baso # (Auto) 0.0 Abs Immat Gran (auto) 0.06 H Absolute Neuts (auto) 8.7 H Absolute Nucleated RBC 0.000 Nucleated RBC % 0.0 Platelet Estimate Decreased % Immature Plt Fraction 6.5 Hypochromasia 1+ Poikilocytosis 1+ Anisocytosis 1+ Ovalocytes 1+ Oneil Cells 1+ Schistocytes None seen ESR 91 H PT INR APTT VBG pH VBG pCO2 VBG pO2 VBG HCO3 O2 Delivery Device O2 Liters/Min FiO2 Sodium 135 L Potassium 4.0 Chloride 110 H Carbon Dioxide 25 Anion Gap 0 L BUN 36 H Creatinine 2.00 H Estim Creat Clear Calc 28 Estimated GFR 25 L Glucose 196 H POC Capillary Glucose 202 H Lactic Acid 2.0 Calcium 9.7 Phosphorus Magnesium Total Bilirubin AST ALT Alkaline Phosphatase Ammonia Troponin I C-Reactive Protein 34.1 H NT-Pro-B Natriuret Pep Total Protein Albumin TSH (Reflex) Urine Color Urine Appearance Urine pH Ur Specific [place] Urine Protein Urine Glucose (UA) Urine Ketones Ur Blood (Man) Urine Nitrate Urine Bilirubin Urine Urobilinogen Leukocyte Esterase Rfl Urine RBC Urine WBC Ur Squamous Epith Cells Urine Bacteria Urine Casts Nasal MRSA (PCR) Not detected Influenza A (RT-PCR) Influenza B (RT-PCR) RSV (RT-PCR) SARS-CoV-2 RNA (RT-PCR) 07/06/24 07/06/24 07:31 08:32 WBC RBC Hgb Hct MCV MCH MCHC RDW Plt Count MPV Immature Gran % (Auto) Neut % (Auto) Lymph % (Auto) [place] % (Auto) Eos % (Auto) Baso % (Auto) Lymph # (Auto) [place] # (Auto) Eos # (Auto) Baso # (Auto) Abs Immat Gran (auto) Absolute Neuts (auto) Absolute Nucleated RBC Nucleated RBC % Platelet Estimate % Immature Plt Fraction Hypochromasia Poikilocytosis Anisocytosis Ovalocytes [place] Cells Schistocytes ESR PT INR APTT VBG pH VBG pCO2 VBG pO2 VBG HCO3 O2 Delivery Device O2 Liters/Min FiO2 Sodium Potassium Chloride Carbon Dioxide Anion Gap BUN Creatinine Estim Creat Clear Calc Estimated GFR Glucose POC Capillary Glucose 180 H Lactic Acid Calcium Phosphorus Magnesium Total Bilirubin AST ALT Alkaline Phosphatase Ammonia < 9 L Troponin I C-Reactive Protein NT-Pro-B Natriuret Pep Total Protein Albumin TSH (Reflex) Urine Color Urine Appearance Urine pH Ur Specific [place] Urine Protein Urine Glucose (UA) Urine Ketones Ur Blood (Man) Urine Nitrate Urine Bilirubin Urine Urobilinogen Leukocyte Esterase Rfl Urine RBC Urine WBC Ur Squamous Epith Cells Urine Bacteria Urine Casts Nasal MRSA (PCR) Influenza A (RT-PCR) Influenza B (RT-PCR) RSV (RT-PCR) SARS-CoV-2 RNA (RT-PCR)
--- NOTE | 2024-07-06 11:31 | PCPTNOTE ---
Per nursing, pt is not approriate for therapy today. Will recheck tomorrow and proceed as able.
[2024-07-06] MEDS: PANTOPRAZOLE SODIUM IV 40 MG VIAL IV PUSH (11:44)
[2024-07-06] MEDS: SODIUM CHLORIDE 0.9% IV 1,000 ML 75 ML IV CONT (11:44)
--- NOTE | 2024-07-06 11:44 | PCOTNOTE ---
Attempted o see pt. for occupational therapy evaluation. Per ICU nursing pt. is not medically appropriate to participate at this time.
[2024-07-06 12:04] LABS: Hematocrit 29.6 % (37.0-47.0); Hemoglobin 9.3 g/dL (12.0-15.0); Immature Platelet Fraction Pct 6.8 % (0.9-11.2); Mean Corpuscular HGB Conc 31.4 g/dl (32-36); Mean Corpuscular Volume 76.3 fl (80-100); Mean Platelet Volume 11.2 fl (7.4-10.4); Platelet Count Result 81 k/mm3 (150-375); Red Blood Count 3.88 M/mm3 (4.2-5.4); Red Cell Distribution Width 17.2 % (11.5-14.5); White Blood Count 9.7 K/mm3 (4.5-10.0)
[2024-07-06 12:11] LABS: Glucose Point of Care 137 mg/dl (65-105)
--- NOTE | 2024-07-06 12:55 | PCSTNOTE ---
ST attempted to complete BSE on 07/06/24. Nursing and MD would like to hold off until 07/07 due to decreased alertness.
[2024-07-06] MEDS: PERFLUTREN LIPID MICROSPHERES 1.5 ML VIAL DILUTED TO 10 ML TOTAL VOLUME IV PUSH (16:30)
[2024-07-06 16:46] LABS: Glucose Point of Care 149 mg/dl (65-105)
--- NOTE | 2024-07-06 17:05 | IVDEFINITY ---
Prior to administration of IV Definity the patient was educated on the risks and benefits of the imaging enhancing agent including potential adverse side effects. The patient verbalized understanding. Allergies were verified. No exclusion criteria were identified and at least one of the following inclusion criteria were met: 1) physician request, 2) patient technically difficult to image (per the [place] [employer] guidelines of two or more segments not discernable within the apical view), or 3) questionable left ventricular function. ?
[2024-07-06 20:22] LABS: Glucose Point of Care 162 mg/dl (65-105)
[2024-07-07] VITALS (19 sets, daily range): BP systolic 133–151; BP diastolic 75–96; PULSE 87–116; RESP 16–22; TEMP 36.8–37.8; O2SAT 82–100
[2024-07-07] MEDS: POLYMYXIN/TRIMETHOPRIM OPHTH 10 ML DROPS 1 DROP EACH EYE ×5 (04:35→21:08)
[2024-07-07] MEDS: CENTRAL LINE FLUSH 10 ML IV PUSH ×3 (04:36→21:09)
[2024-07-07 04:50] LABS: Hematocrit 28.8 % (37.0-47.0); Hemoglobin 9.1 g/dL (12.0-15.0); Immature Platelet Fraction Pct 6.5 % (0.9-11.2); Mean Corpuscular HGB Conc 31.6 g/dl (32-36); Mean Corpuscular Hemoglobin 24.1 pg (26-34); Mean Corpuscular Volume 76.2 fl (80-100); Mean Platelet Volume 10.6 fl (7.4-10.4); Platelet Count Result 69 k/mm3 (150-375); Red Blood Count 3.78 M/mm3 (4.2-5.4); Red Cell Distribution Width 17.3 % (11.5-14.5); White Blood Count 8.2 K/mm3 (4.5-10.0)
[2024-07-07 05:03] LABS: Lactic Acid Reflex 1.1 mmol/L (0.7-2.0)
[2024-07-07 05:06] LABS: Alanine Aminotransferase 22 U/L (6-35); Albumin Level 2.7 g/dL (3.5-5.1); Alkaline Phosphatase 91 U/L (38-126); Anion Gap 3 mmol/L (4-12); Aspartate Amino Transferase 25 U/L (14-36); Bilirubin,Total 0.8 mg/dL (0.2-1.3); Blood Urea Nitrogen 32 mg/dL (7-17); Calcium 9.9 mg/dL (8.4-10.2); Carbon Dioxide 26 mmol/L (22-30); Chloride 111 mmol/L (98-107); Estimated CRCL calculation 39 ml/min; Estimated Glomerular Filt Rate 35; Glucose 161 mg/dL (65-110); Magnesium 1.8 mg/dL (1.6-2.3); Phosphorus 2.8 mg/dL (2.5-4.5); Potassium 3.7 mmol/L (3.4-5.0); Sodium 140 mmol/L (137-145)
[2024-07-07] MEDS: PIPERACILLIN/TAZ 2.25G/NS 50ML 2.25 GM/50 ML BAG IVPB ×3 (05:16→17:56)
[2024-07-07 05:18] LABS: Band Neutrophils Percent 7 % (0-6); Lymphocytes Absolute Manual 1.14 K/mm3 (1.1-4.5); Monocytes Absolute Manual 0.16 K/mm3 (0.1-0.90); Monocytes Percent Manual 2 % (3-9); Neutrophils Absolute Manual 6.88 K/mm3 (1.7-7.2); Neutrophils Percent Manual 77 % (46-73); Platelet Estimate Decreased (Adequate); Total Cells Counted 100
[2024-07-07 05:19] LABS: Anisocytosis 1+; Burr Cells 1+; Ovalocytes 1+; Schistocytes None Seen
--- NOTE | 2024-07-07 08:44 | PCOTNOTE ---
Attempted to see patient for OT evaluation. Patient continues to be extremely lethargic. Not safe to attempt to mobilize at this time. Will continue to attempt as mentation improves.
[2024-07-07] MEDS: PANTOPRAZOLE SODIUM IV 40 MG VIAL IV PUSH (08:55)
[2024-07-07 08:56] LABS: Glucose Point of Care 161 mg/dl (65-105)
[2024-07-07 10:15] LABS: Vancomycin Trough 6.8 ug/mL (10.0-20.0)
[2024-07-07] MEDS: VANCOMYCIN 1,500 MG/NS 500 ML 1,500 MG/500 ML BAG 250 MG IVPB (10:39)
--- NOTE | 2024-07-07 11:23 | P.PNUR_ITS ---
Progress Note: A&P Assessment and Plan (1) Hydronephrosis due to obstruction of ureter: Code(s): N13.1 - Hydronephrosis with ureteral stricture, not elsewhere classified Status: Acute (2) Severe sepsis: Code(s): A41.9 - Sepsis, unspecified organism; R65.20 - Severe sepsis without septic shock Status: Acute (3) Hydronephrosis: Code(s): N13.30 - Unspecified hydronephrosis Status: Acute (4) Calculus of proximal left ureter: Code(s): N20.1 - Calculus of ureter Status: Acute Plan She continues to require ICU-level support. Mental status slowly improving. Ureteral stent in place. Reid catheter intact, draining. Urine culture pending. Blood cultures growing gram negative bacilli. Plan on definitive outpatient stone management when medically stable. Subjective Subjective Date/Time Seen: 07/07/24 11:23 Interval history: NAEO. Patient wakes to voice, follows commands. Indwelling Reid draining clear yellow urine. Blood cultures growing gram negative bacilli. Urine culture pending. Review of Systems Review of Systems: Patient reports diffuse abdominal tenderness, denies nausea Exam Narrative: Drowsy, wakes to voice GI: Other: Largely obese : Other: Urinary Catheter: Urinary Catheter: patent and draining, urine clear and other Psych: Other: Flat affect Objective Data Vital Signs Vital Signs: Vital Signs - 24 hr 07/06/24 12:00 07/06/24 12:00 07/06/24 12:00 Temperature 98.9 F Pulse Rate 113 H 107 H Respiratory Rate 20 Blood Pressure 148/76 H Pulse Oximetry 97 98 Oxygen Delivery Nasal Cannula Oxygen Flow Rate 2 07/06/24 13:59 07/06/24 14:00 07/06/24 14:00 Temperature Pulse Rate 127 H 120 H 120 H Respiratory Rate 22 H Blood Pressure 147/80 H Pulse Oximetry 97 Oxygen Delivery Oxygen Flow Rate 07/06/24 16:00 07/06/24 16:00 07/06/24 16:00 Temperature 98.9 F Pulse Rate 114 H 114 H Respiratory Rate 22 H Blood Pressure 150/76 H Pulse Oximetry 98 98 Oxygen Delivery Nasal Cannula Oxygen Flow Rate 2 07/06/24 18:00 07/06/24 18:00 07/06/24 20:00 Temperature 98.6 F Pulse Rate 117 H 121 H Respiratory Rate 22 H Blood Pressure 146/86 H Pulse Oximetry 98 97 Oxygen Delivery Nasal Cannula Oxygen Flow Rate 2 07/06/24 20:00 07/06/24 20:13 07/06/24 20:38 Temperature Pulse Rate 111 H 120 H Respiratory Rate Blood Pressure Pulse Oximetry 97 Oxygen Delivery Nasal Cannula Oxygen Flow Rate 2 07/06/24 20:57 07/06/24 21:09 07/06/24 22:00 Temperature 102.3 F H 102.5 F H Pulse Rate 123 H 107 H Respiratory Rate 20 Blood Pressure 140/86 Pulse Oximetry 97 Oxygen Delivery Oxygen Flow Rate 07/06/24 22:00 07/06/24 22:09 07/07/24 00:00 Temperature 99.3 F Pulse Rate 107 H Respiratory Rate 20 Blood Pressure 132/90 Pulse Oximetry 97 98 Oxygen Delivery Nasal Cannula Oxygen Flow Rate 2 07/07/24 00:00 07/07/24 00:00 07/07/24 00:11 Temperature 98.8 F 98.8 F Pulse Rate 105 H 108 H 87 Respiratory Rate 17 22 H Blood Pressure 139/96 H 139/96 H Pulse Oximetry 98 100 Oxygen Delivery Oxygen Flow Rate 07/07/24 02:00 07/07/24 04:00 07/07/24 04:00 Temperature 98.2 F Pulse Rate 98 103 H Respiratory Rate 17 Blood Pressure 151/75 H Pulse Oximetry 96 96 Oxygen Delivery Nasal Cannula Oxygen Flow Rate 2 07/07/24 04:00 07/07/24 04:35 07/07/24 06:00 Temperature 98.8 F Pulse Rate 99 109 H 111 H Respiratory Rate 16 Blood Pressure 150/84 H Pulse Oximetry 96 Oxygen Delivery Oxygen Flow Rate 07/07/24 08:00 07/07/24 08:00 07/07/24 08:00 Temperature 100.1 F H Pulse Rate 107 H 109 H Respiratory Rate 18 Blood Pressure 139/93 H Pulse Oximetry 96 97 Oxygen Delivery Nasal Cannula Oxygen Flow Rate 2 07/07/24 10:00 07/07/24 10:43 07/07/24 10:55 Temperature Pulse Rate 106 H Respiratory Rate Blood Pressure Pulse Oximetry 99 82 L Oxygen Delivery Nasal Cannula Room Air Oxygen Flow Rate 2 Intake/Output Intake/Output: Intake & Output 07/04/24 07/05/24 07/06/24 07/07/24 23:59 23:59 23:59 23:59 Intake Total 3691.7 1347.9 100 Output Total 1000 500 Balance 3691.7 347.9 -400 Meds/Results Medications: Active Medications Generic Name Dose Route Start Last Admin Trade Name Freq PRN Reason Stop Dose Admin Acetaminophen 650 mg 07/05/24 12:59 Acetaminophen 325 Mg Tablet PO Q4H PRN Mild Pain (1-3) or Fever Acetaminophen 650 mg 07/06/24 04:59 07/06/24 21:09 Acetaminophen 650 Mg Suppository RECTAL 650 mg Q6H PRN Administration Mild Pain (1-3/ Fever IF NPO Dextrose 12.5 gm 07/05/24 13:02 Dextrose 50% 25 Gm/50 Ml Syringe IV PUSH PRN PRN Hypoglycemia Protocol Diltiazem HCl 120 mg 07/05/24 16:20 07/05/24 18:39 Diltiazem Hcl Cd 120 Mg Cap.24hr PO Not Given QAM [facility] Escitalopram Oxalate 20 mg 07/06/24 09:00 Escitalopram Oxalate 10 Mg Tablet PO DAILY [facility] Glucagon 1 mg 07/05/24 13:02 Glucagon For Inj 1 Mg Vial IM PRN PRN Hypoglycemia Protocol Glucose 15 gm 07/05/24 13:02 Glucose Oral Gel 15 Gm Of Glucse In 37.5 Gm Tube PO PRN PRN Hypoglycemia Protocol Piperacillin Sod/Tazobactam Sod 2.25 gm in 50 mls @ 100 mls/hr 07/05/24 18:00 07/07/24 05:46 Zosyn 2.25 Gm/Ns 50 Ml IVPB Infused Q6HR [facility] Infusion Dextrose 1,000 mls @ 100 mls/hr 07/05/24 13:02 Dextrose 5% 1,000 Ml IVPB PRN PRN Hypoglycemia Protocol Vancomycin HCl 1,500 mg in 500 mls @ 250 mls/hr 07/07/24 10:22 07/07/24 10:39 Vancomycin 1,500 Mg/Ns 500 Ml IVPB 07/07/24 12:21 250 mls/hr ONCE ONE Administration Insulin Aspart 4 units 07/05/24 17:00 07/07/24 08:55 Insulin Aspart (*Bkc) 100 Units/Ml SUB-Q Not Given TIDWM [facility] Insulin Aspart 3 - 6 units 07/06/24 08:00 07/07/24 08:56 Insulin Aspart (*Bkc) 100 Units/Ml SUB-Q Not Given TIDWM [facility] Protocol Insulin Aspart 1 - 3 units 07/05/24 21:00 07/06/24 20:33 Insulin Aspart (*Bkc) 100 Units/Ml SUB-Q Not Given HS [facility] Protocol Insulin Glargine 12 units 07/06/24 09:00 Insulin Glargine (*Bkc) 100 Units/Ml SUB-Q DAILY [facility] Metoprolol Tartrate 12.5 mg 07/05/24 13:00 07/06/24 05:27 Metoprolol Tartrate 12.5 Mg Tablet PO Not Given Q6HR [facility] Metoprolol Tartrate 5 mg 07/06/24 07:19 07/06/24 20:38 Metoprolol Tartrate Inj 5 Mg/5 Ml Vial IV PUSH 5 mg Q6H PRN Administration Tachycardia Ondansetron HCl 4 mg 07/05/24 12:59 Ondansetron Inj 4 Mg/2 Ml Vial IV PUSH Q4H PRN Nausea Pantoprazole Sodium 40 mg 07/07/24 09:00 07/07/24 08:55 Pantoprazole Sodium Iv 40 Mg Vial IV PUSH 40 mg QAM [facility] Administration Polymyxin/Trimethoprim Sulfate 1 drop 07/05/24 17:00 07/07/24 08:55 Polymyxin/Trimethoprim Ophth 10 Ml Drops EACH EYE 1 drop Q4HWA [facility] Administration Sodium Chloride 10 ml 07/05/24 22:00 07/07/24 04:36 Central Line Flush IV PUSH 10 ml Q8HR [facility] Administration Sodium Chloride 20 ml 07/05/24 20:47 Central Line Flush IV PUSH PRN PRN after blood draws Vancomycin HCl 1 each 07/06/24 08:57 Vancomycin For Acute Kidney Injury IVPB PRN PRN Vancomycin Protocol Radiology Results: ITS Impressions Head CT 07/05/24 14:26 IMPRESSION: Cerebral atherosclerosis and proximal vessel ischemic changes of the cerebral white matter No acute intracranial finding or significant change since 01/06/2018 Chest/Abdomen/Pelvis CTA 07/05/24 14:55 IMPRESSION: Left-sided hydroureteronephrosis secondary to a 9 mm stone in the proximal to mid left ureter. No pulmonary embolus. No aortic dissection. 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 Chest X-Ray 07/05/24 18:55 IMPRESSION: No focal infiltrate or effusion. Right internal jugular central venous catheter in good position and ready for immediate use Labs Labs: Laboratory Results - last 24 hr 07/06/24 07/06/24 07/06/24 11:53 12:09 16:43 WBC 9.7 RBC 3.88 L Hgb 9.3 L Hct 29.6 L MCV 76.3 L MCH 24.0 L MCHC 31.4 L RDW 17.2 H Plt Count 81 L MPV 11.2 H Immature Gran % (Auto) Neut % (Auto) Lymph % (Auto) [place] % (Auto) Eos % (Auto) Baso % (Auto) Lymph # (Auto) [place] # (Auto) Eos # (Auto) Baso # (Auto) Abs Immat Gran (auto) Absolute Neuts (auto) Absolute Nucleated RBC Total Counted Neutrophils % (Manual) Band Neutrophils % Lymphocytes % (Manual) Monocytes % (Manual) Nucleated RBC % Abs Neuts (Manual) Abs Lymphs (Manual) Abs Monocytes (Manual) Platelet Estimate % Immature Plt Fraction 6.8 Anisocytosis Ovalocytes Oneil Cells Schistocytes Sodium Potassium Chloride Carbon Dioxide Anion Gap BUN Creatinine Estim Creat Clear Calc Estimated GFR Glucose POC Capillary Glucose 137 H 149 H Lactic Acid Calcium Phosphorus Magnesium Total Bilirubin AST ALT Alkaline Phosphatase Total Protein Albumin Vancomycin Trough 07/06/24 07/07/24 07/07/24 20:20 04:43 08:49 WBC 8.2 RBC 3.78 L Hgb 9.1 L Hct 28.8 L MCV 76.2 L MCH 24.1 L MCHC 31.6 L RDW 17.3 H Plt Count 69 L MPV 10.6 H Immature Gran % (Auto) Not Reportable Neut % (Auto) Not Reportable Lymph % (Auto) Not Reportable [place] % (Auto) Not Reportable Eos % (Auto) Not Reportable Baso % (Auto) Not Reportable Lymph # (Auto) Not Reportable [place] # (Auto) Not Reportable Eos # (Auto) Not Reportable Baso # (Auto) Not Reportable Abs Immat Gran (auto) Not Reportable Absolute Neuts (auto) Not Reportable Absolute Nucleated RBC Not Reportable Total Counted 100 Neutrophils % (Manual) 77 H Band Neutrophils % 7 H Lymphocytes % (Manual) 14.0 L Monocytes % (Manual) 2 L Nucleated RBC % Not Reportable Abs Neuts (Manual) 6.88 Abs Lymphs (Manual) 1.14 Abs Monocytes (Manual) 0.16 Platelet Estimate Decreased % Immature Plt Fraction 6.5 Anisocytosis 1+ Ovalocytes 1+ Oneil Cells 1+ Schistocytes None seen Sodium 140 Potassium 3.7 Chloride 111 H Carbon Dioxide 26 Anion Gap 3 L BUN 32 H Creatinine 1.47 H Estim Creat Clear Calc 39 Estimated GFR 35 L Glucose 161 H POC Capillary Glucose 162 H 161 H Lactic Acid 1.1 Calcium 9.9 Phosphorus 2.8 Magnesium 1.8 Total Bilirubin 0.8 AST 25 ALT 22 Alkaline Phosphatase 91 Total Protein 6.0 L Albumin 2.7 L Vancomycin Trough 07/07/24 08:50 WBC RBC Hgb Hct MCV MCH MCHC RDW Plt Count MPV Immature Gran % (Auto) Neut % (Auto) Lymph % (Auto) [place] % (Auto) Eos % (Auto) Baso % (Auto) Lymph # (Auto) [place] # (Auto) Eos # (Auto) Baso # (Auto) Abs Immat Gran (auto) Absolute Neuts (auto) Absolute Nucleated RBC Total Counted Neutrophils % (Manual) Band Neutrophils % Lymphocytes % (Manual) Monocytes % (Manual) Nucleated RBC % Abs Neuts (Manual) Abs Lymphs (Manual) Abs Monocytes (Manual) Platelet Estimate % Immature Plt Fraction Anisocytosis Ovalocytes Oneil Cells Schistocytes Sodium Potassium Chloride Carbon Dioxide Anion Gap BUN Creatinine Estim Creat Clear Calc Estimated GFR Glucose POC Capillary Glucose Lactic Acid Calcium Phosphorus Magnesium Total Bilirubin AST ALT Alkaline Phosphatase Total Protein Albumin Vancomycin Trough 6.8 L
--- NOTE | 2024-07-07 12:30 | PCSTNOTE ---
Please refer to the Bedside Swallow Evaluation in the EMR. Please note, silent aspiration cannot be ruled out at bedside.
[2024-07-07 12:51] LABS: Glucose Point of Care 146 mg/dl (65-105)
--- NOTE | 2024-07-07 14:36 | PCPTNOTE ---
Attempted to see patient for PT evaluation. Patient is extremely lethargic. Not safe to attempt out of bed mobility at this time. Will continue to attempt as mentation improves.
--- NOTE | 2024-07-07 15:12 | P.PNIM_ITS ---
Progress Note: A&P Assessment and Plan (1) Severe sepsis: Code(s): A41.9 - Sepsis, unspecified organism; R65.20 - Severe sepsis without septic shock Status: Acute Assessment and Plan: 07/05: Patient presented from halfway, with lethargy, generalized weakness, altered mental status, was found to have left ureteral stone with hydronephrosis, status post cystoscopy, retrograde pyelogram with stent placem ent to left proximal ureter. CTA Ch/A/P showing left-sided hydroureteronephrosis secondary to a 9 mm stone in the proximal to mid left ureter. No PE or aortic dissection. 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 Urology consulted and patient underwent cystoscopy, left retrograde pyelogram, left ureteral stent placement 07/05/24. Purulent drainage was seen once the stent was placed. Patient was given adequate amount of IV fluids, Lactic acid was initially elevated which has normalized -patient has not required any pressors at this time as blood pressures have been stable MRSA nasal swab negative. BCx 07/05: growing GNB UCx 07/05: pending Patient was on linezolid and Zosyn, (07/05); discontinue linezolid and started vancomycin 07/06 Creatinine trending down. WBC normal now. She is still having fevers. Old Cx reviewed with most showing EColi and Klebsiella that are nair-sensitive. She did have ESBL EColi in a UCx on 07/28/19. Will change Zosyn to Meropenem until BCx results are known. Okay to stop Vanco (2) Acute pyelonephritis: Code(s): N10 - Acute pyelonephritis Status: Acute Assessment and Plan: Acute pyelonephritis related to left ureteral stone and hydronephrosis As above (3) Hydronephrosis due to obstruction of ureter: Code(s): N13.1 - Hydronephrosis with ureteral stricture, not elsewhere classified Status: Acute Assessment and Plan: Urology following, status post cystoscopy, retrograde pyelogram, left proximal stent placement on 07/05/2024 (4) Atrial fibrillation: Qualifiers: Atrial fibrillation type: unspecified chronic Qualified Code(s): I48.20 - Chronic atrial fibrillation, unspecified Code(s): I48.91 - Unspecified atrial fibrillation Status: Chronic Assessment and Plan: Patient does have a history of AFib on apixaban at home. Patient is also on diltiazem and metoprolol at home -patient had a couple of episodes of AFib RVR which was managed with metoprolol IV -since patient is unable to take oral meds at this time, manager sas started metoprolol IV p.r.n. for tachycardia -manager sas was holding Eliquis given thrombocytopenia Heart rate reasonable so will not schedule IV metoprolol. Resume oral metoprolol when able. (5) AMS (altered mental status): Code(s): R41.82 - Altered mental status, unspecified Status: Acute Assessment and Plan: Altered mental status mostly likely secondary to severe sepsis, UTI, pyelonephritis -07/05: CT brain was negative for any acute intracranial abnormality Ammonia <9. TSH normal. She is somewhat oriented but somnolent. Monitor mental status. May need NGT for meds/nutrition if persistently altered. (6) Type 2 diabetes mellitus: Code(s): E11.9 - Type 2 diabetes mellitus without complications Status: Chronic Assessment and Plan: Accu-Cheks and sliding scale insulin Holding Lantus since patient is not taking p.o. diet Plan Thrombocytopenia - plt count dropped to 69K. Probably related to consumption from sepsis. She does have borderline enlarged spleen. Follow. DVT prophylaxis: SCDs, no chemoprophylaxis due to thrombocytopenia Stress ulcer prophylaxis: Protonix Nutrition: NPO Code Status: Do not resuscitate Subjective Date/time seen: 07/07/24 15:12 Interval history: 68yo female with ALIVIA, CKD, DM, AFib and HTN here for altered mental status. Assuming care. Chart reviewed. No issues overnight per RN. Patient normally walks with walker at baseline. She arouses. Answers some questions and appears oriented but falls asleep quickly so hx limited. Exam Narrative: Tm 102.5 99.6 133/80 99 17 97% 2L Gen - NARD lying semi-recumbent in bed HEENT - right cheek flushed with mild edema but no pain or swelling noted around right parotid. PERRL. Neck - Right IJ TLC in place Chest - inspiratory crackles in the flanks CV - irregularly irregular. Abd - Soft, obese, diffusely tender. no guarding. - Reid secured draining clear yellow urine Ext - no pedal edema Neuro - somnolent but arouses. whispering speech. eye closed mostly. follows simple commands but not consistently. Psych - difficult to assess Skin - cool and dry Objective Data Vital Signs Vital Signs: Vital Signs - 24 hr 07/06/24 16:00 07/06/24 16:00 07/06/24 16:00 Temperature 98.9 F Pulse Rate 114 H 114 H Respiratory Rate 22 H Blood Pressure 150/76 H Pulse Oximetry 98 98 Oxygen Delivery Nasal Cannula Oxygen Flow Rate 2 07/06/24 18:00 07/06/24 18:00 07/06/24 20:00 Temperature 98.6 F Pulse Rate 117 H 121 H Respiratory Rate 22 H Blood Pressure 146/86 H Pulse Oximetry 98 97 Oxygen Delivery Nasal Cannula Oxygen Flow Rate 2 07/06/24 20:00 07/06/24 20:13 07/06/24 20:38 Temperature Pulse Rate 111 H 120 H Respiratory Rate Blood Pressure Pulse Oximetry 97 Oxygen Delivery Nasal Cannula Oxygen Flow Rate 2 07/06/24 20:57 07/06/24 21:09 07/06/24 22:00 Temperature 102.3 F H 102.5 F H Pulse Rate 123 H 107 H Respiratory Rate 20 Blood Pressure 140/86 Pulse Oximetry 97 Oxygen Delivery Oxygen Flow Rate 07/06/24 22:00 07/06/24 22:09 07/07/24 00:00 Temperature 99.3 F Pulse Rate 107 H Respiratory Rate 20 Blood Pressure 132/90 Pulse Oximetry 97 98 Oxygen Delivery Nasal Cannula Oxygen Flow Rate 2 07/07/24 00:00 07/07/24 00:00 07/07/24 00:11 Temperature 98.8 F 98.8 F Pulse Rate 105 H 108 H 87 Respiratory Rate 17 22 H Blood Pressure 139/96 H 139/96 H Pulse Oximetry 98 100 Oxygen Delivery Oxygen Flow Rate 07/07/24 02:00 07/07/24 04:00 07/07/24 04:00 Temperature 98.2 F Pulse Rate 98 103 H Respiratory Rate 17 Blood Pressure 151/75 H Pulse Oximetry 96 96 Oxygen Delivery Nasal Cannula Oxygen Flow Rate 2 07/07/24 04:00 07/07/24 04:35 07/07/24 06:00 Temperature 98.8 F Pulse Rate 99 109 H 111 H Respiratory Rate 16 Blood Pressure 150/84 H Pulse Oximetry 96 Oxygen Delivery Oxygen Flow Rate 07/07/24 08:00 07/07/24 08:00 07/07/24 08:00 Temperature 100.1 F H Pulse Rate 107 H 109 H Respiratory Rate 18 Blood Pressure 139/93 H Pulse Oximetry 96 97 Oxygen Delivery Nasal Cannula Oxygen Flow Rate 2 07/07/24 10:00 07/07/24 10:43 07/07/24 10:55 Temperature Pulse Rate 106 H Respiratory Rate Blood Pressure Pulse Oximetry 99 82 L Oxygen Delivery Nasal Cannula Room Air Oxygen Flow Rate 2 07/07/24 12:00 07/07/24 12:00 07/07/24 12:00 Temperature 99.6 F Pulse Rate 96 101 H Respiratory Rate 17 Blood Pressure 133/80 Pulse Oximetry 97 97 Oxygen Delivery Nasal Cannula Oxygen Flow Rate 2 07/07/24 14:00 Temperature Pulse Rate 99 Respiratory Rate Blood Pressure Pulse Oximetry Oxygen Delivery Oxygen Flow Rate Intake/Output Intake/Output: Intake & Output 07/04/24 07/05/24 07/06/24 07/07/24 23:59 23:59 23:59 23:59 Intake Total 3691.7 1347.9 150 Output Total 1000 500 Balance 3691.7 347.9 -350 Meds/Results Medications: Active Medications Generic Name Dose Route Start Last Admin Trade Name Freq PRN Reason Stop Dose Admin Acetaminophen 650 mg 07/05/24 12:59 Acetaminophen 325 Mg Tablet PO Q4H PRN Mild Pain (1-3) or Fever Acetaminophen 650 mg 07/06/24 04:59 07/06/24 21:09 Acetaminophen 650 Mg Suppository RECTAL 650 mg Q6H PRN Administration Mild Pain (1-3/ Fever IF NPO Dextrose 12.5 gm 07/05/24 13:02 Dextrose 50% 25 Gm/50 Ml Syringe IV PUSH PRN PRN Hypoglycemia Protocol Diltiazem HCl 120 mg 07/05/24 16:20 07/05/24 18:39 Diltiazem Hcl Cd 120 Mg Cap.24hr PO Not Given QAM [facility] Escitalopram Oxalate 20 mg 07/06/24 09:00 Escitalopram Oxalate 10 Mg Tablet PO DAILY [facility] Glucagon 1 mg 07/05/24 13:02 Glucagon For Inj 1 Mg Vial IM PRN PRN Hypoglycemia Protocol Glucose 15 gm 07/05/24 13:02 Glucose Oral Gel 15 Gm Of Glucse In 37.5 Gm Tube PO PRN PRN Hypoglycemia Protocol Piperacillin Sod/Tazobactam Sod 2.25 gm in 50 mls @ 100 mls/hr 07/05/24 18:00 07/07/24 13:39 Zosyn 2.25 Gm/Ns 50 Ml IVPB Infused Q6HR [facility] Infusion Dextrose 1,000 mls @ 100 mls/hr 07/05/24 13:02 Dextrose 5% 1,000 Ml IVPB PRN PRN Hypoglycemia Protocol Insulin Aspart 4 units 07/05/24 17:00 07/07/24 12:56 Insulin Aspart (*Bkc) 100 Units/Ml SUB-Q Not Given TIDWM [facility] Insulin Aspart 3 - 6 units 07/06/24 08:00 07/07/24 12:56 Insulin Aspart (*Bkc) 100 Units/Ml SUB-Q Not Given TIDWM [facility] Protocol Insulin Aspart 1 - 3 units 07/05/24 21:00 07/06/24 20:33 Insulin Aspart (*Bkc) 100 Units/Ml SUB-Q Not Given HS [facility] Protocol Insulin Glargine 12 units 07/06/24 09:00 Insulin Glargine (*Bkc) 100 Units/Ml SUB-Q DAILY [facility] Metoprolol Tartrate 12.5 mg 07/05/24 13:00 07/06/24 05:27 Metoprolol Tartrate 12.5 Mg Tablet PO Not Given Q6HR [facility] Metoprolol Tartrate 5 mg 07/06/24 07:19 07/06/24 20:38 Metoprolol Tartrate Inj 5 Mg/5 Ml Vial IV PUSH 5 mg Q6H PRN Administration Tachycardia Ondansetron HCl 4 mg 07/05/24 12:59 Ondansetron Inj 4 Mg/2 Ml Vial IV PUSH Q4H PRN Nausea Pantoprazole Sodium 40 mg 07/07/24 09:00 07/07/24 08:55 Pantoprazole Sodium Iv 40 Mg Vial IV PUSH 40 mg QAM [facility] Administration Polymyxin/Trimethoprim Sulfate 1 drop 07/05/24 17:00 07/07/24 13:09 Polymyxin/Trimethoprim Ophth 10 Ml Drops EACH EYE 1 drop Q4HWA [facility] Administration Sodium Chloride 10 ml 07/05/24 22:00 07/07/24 13:09 Central Line Flush IV PUSH 10 ml Q8HR [facility]AL Administration Sodium Chloride 20 ml 07/05/24 20:47 Central Line Flush IV PUSH PRN PRN after blood draws Radiology Results: ITS Impressions Head CT 07/05/24 14:26 IMPRESSION: Cerebral atherosclerosis and proximal vessel ischemic changes of the cerebral white matter No acute intracranial finding or significant change since 01/06/2018 Chest/Abdomen/Pelvis CTA 07/05/24 14:55 IMPRESSION: Left-sided hydroureteronephrosis secondary to a 9 mm stone in the proximal to mid left ureter. No pulmonary embolus. No aortic dissection. 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 Chest X-Ray 07/05/24 18:55 IMPRESSION: No focal infiltrate or effusion. Right internal jugular central venous catheter in good position and ready for immediate use Labs Labs: Laboratory Results - last 24 hr 07/06/24 07/06/24 07/07/24 16:43 20:20 04:43 WBC 8.2 RBC 3.78 L Hgb 9.1 L Hct 28.8 L MCV 76.2 L MCH 24.1 L MCHC 31.6 L RDW 17.3 H Plt Count 69 L MPV 10.6 H Immature Gran % (Auto) Not Reportable Neut % (Auto) Not Reportable Lymph % (Auto) Not Reportable [place] % (Auto) Not Reportable Eos % (Auto) Not Reportable Baso % (Auto) Not Reportable Lymph # (Auto) Not Reportable [place] # (Auto) Not Reportable Eos # (Auto) Not Reportable Baso # (Auto) Not Reportable Abs Immat Gran (auto) Not Reportable Absolute Neuts (auto) Not Reportable Absolute Nucleated RBC Not Reportable Total Counted 100 Neutrophils % (Manual) 77 H Band Neutrophils % 7 H Lymphocytes % (Manual) 14.0 L Monocytes % (Manual) 2 L Nucleated RBC % Not Reportable Abs Neuts (Manual) 6.88 Abs Lymphs (Manual) 1.14 Abs Monocytes (Manual) 0.16 Platelet Estimate Decreased % Immature Plt Fraction 6.5 Anisocytosis 1+ Ovalocytes 1+ Oneil Cells 1+ Schistocytes None seen Sodium 140 Potassium 3.7 Chloride 111 H Carbon Dioxide 26 Anion Gap 3 L BUN 32 H Creatinine 1.47 H Estim Creat Clear Calc 39 Estimated GFR 35 L Glucose 161 H POC Capillary Glucose 149 H 162 H Lactic Acid 1.1 Calcium 9.9 Phosphorus 2.8 Magnesium 1.8 Total Bilirubin 0.8 AST 25 ALT 22 Alkaline Phosphatase 91 Total Protein 6.0 L Albumin 2.7 L Vancomycin Trough 07/07/24 07/07/24 07/07/24 08:49 08:50 12:45 WBC RBC Hgb Hct MCV MCH MCHC RDW Plt Count MPV Immature Gran % (Auto) Neut % (Auto) Lymph % (Auto) [place] % (Auto) Eos % (Auto) Baso % (Auto) Lymph # (Auto) [place] # (Auto) Eos # (Auto) Baso # (Auto) Abs Immat Gran (auto) Absolute Neuts (auto) Absolute Nucleated RBC Total Counted Neutrophils % (Manual) Band Neutrophils % Lymphocytes % (Manual) Monocytes % (Manual) Nucleated RBC % Abs Neuts (Manual) Abs Lymphs (Manual) Abs Monocytes (Manual) Platelet Estimate % Immature Plt Fraction Anisocytosis Ovalocytes Oneil Cells Schistocytes Sodium Potassium Chloride Carbon Dioxide Anion Gap BUN Creatinine Estim Creat Clear Calc Estimated GFR Glucose POC Capillary Glucose 161 H 146 H Lactic Acid Calcium Phosphorus Magnesium Total Bilirubin AST ALT Alkaline Phosphatase Total Protein Albumin Vancomycin Trough 6.8 L
[2024-07-07 16:07] LABS: Glucose Point of Care 134 mg/dl (65-105)
[2024-07-07 20:18] LABS: Glucose Point of Care 146 mg/dl (65-105)
[2024-07-07] MEDS: MEROPENEM 1 GM/NS 100 ML 1 GM/100 ML BAG IVPB (21:09)
[2024-07-07] MEDS: METOPROLOL TARTRATE INJ 5 MG/5 ML VIAL IV PUSH (21:14)
--- NOTE | 2024-07-07 23:12 | PC.NURSE ---
This patient, Carol Gee, was received from [ICU 1 ] on 07/07/24 at 2312. Patient/family oriented to unit policies and routines
--- NOTE | 2024-07-07 23:25 | PC.NURSE ---
Patient to room 201. Report given to Fe HUA. All belongings gathered.
[2024-07-08] VITALS (19 sets, daily range): BP systolic 131–149; BP diastolic 62–97; PULSE 92–115; RESP 14–22; TEMP 36.3–36.9; O2SAT 93–99
[2024-07-08] MEDS: POLYMYXIN/TRIMETHOPRIM OPHTH 10 ML DROPS 1 DROP EACH EYE ×4 (04:35→20:47)
[2024-07-08] MEDS: CENTRAL LINE FLUSH 10 ML IV PUSH ×2 (04:36→12:24)
[2024-07-08 05:11] LABS: Basophils Percent Auto 0.2 % (0.2-1.2); Eosinophils Percent Auto 0.2 % (0-4.4); Hematocrit 28.2 % (37.0-47.0); Hemoglobin 8.7 g/dL (12.0-15.0); Immature Granulocyte Absolute 0.03 K/mm3 (0.00-0.031); Immature Granulocyte Percent A 0.3 % (0-0.5); Immature Platelet Fraction Pct 6.7 % (0.9-11.2); Lymphocytes Absolute Auto 1.06 K/mm3 (0.9-3.2); Lymphocytes Percent Auto 12.3 % (18.3-44.2); Mean Corpuscular HGB Conc 30.9 g/dl (32-36); Mean Corpuscular Hemoglobin 24.2 pg (26-34); Mean Corpuscular Volume 78.3 fl (80-100); Mean Platelet Volume 11.9 fl (7.4-10.4); Monocytes Percent Auto 11.1 % (2.6-8.5); Neutrophils Absolute Auto 6.5 K/mm3 (1.3-6.7); Neutrophils Percent Auto 75.9 % (45.5-73.1); Platelet Count Result 60 k/mm3 (150-375); Red Cell Distribution Width 17.6 % (11.5-14.5); White Blood Count 8.6 K/mm3 (4.5-10.0)
[2024-07-08 05:25] LABS: Alanine Aminotransferase 18 U/L (6-35); Albumin Level 2.5 g/dL (3.5-5.1); Alkaline Phosphatase 110 U/L (38-126); Anion Gap 2 mmol/L (4-12); Aspartate Amino Transferase 19 U/L (14-36); Bilirubin,Total 0.7 mg/dL (0.2-1.3); Blood Urea Nitrogen 31 mg/dL (7-17); Calcium 10.1 mg/dL (8.4-10.2); Carbon Dioxide 29 mmol/L (22-30); Chloride 113 mmol/L (98-107); Estimated CRCL calculation 43 ml/min; Estimated Glomerular Filt Rate 40; Glucose 147 mg/dL (65-110); Magnesium 1.9 mg/dL (1.6-2.3); Phosphorus 2.4 mg/dL (2.5-4.5); Potassium 3.5 mmol/L (3.4-5.0); Sodium 144 mmol/L (137-145)
[2024-07-08 05:37] LABS: Anisocytosis 1+; Burr Cells 1+; Hypochromasia 1+; Ovalocytes 1+; Platelet Estimate Decreased (Adequate); Poikilocytosis 1+
[2024-07-08 05:38] LABS: Schistocytes None Seen
[2024-07-08 07:51] LABS: Glucose Point of Care 155 mg/dl (65-105)
[2024-07-08] MEDS: PANTOPRAZOLE SODIUM IV 40 MG VIAL IV PUSH (08:41)
[2024-07-08] MEDS: MEROPENEM 1 GM/NS 100 ML 1 GM/100 ML BAG IVPB ×2 (08:41→20:46)
--- NOTE | 2024-07-08 09:07 | PCPTNOTE ---
Patient too lethargic to participate in therapy 0907. Will follow.
--- NOTE | 2024-07-08 09:27 | P.PNIM_ITS ---
Progress Note: A&P Assessment and Plan (1) Severe sepsis: Code(s): A41.9 - Sepsis, unspecified organism; R65.20 - Severe sepsis without septic shock Status: Acute (2) Acute pyelonephritis: Code(s): N10 - Acute pyelonephritis Status: Acute (3) Hydronephrosis due to obstruction of ureter: Code(s): N13.1 - Hydronephrosis with ureteral stricture, not elsewhere classified Status: Acute (4) Atrial fibrillation: Qualifiers: Atrial fibrillation type: unspecified chronic Qualified Code(s): I48.20 - Chronic atrial fibrillation, unspecified Code(s): I48.91 - Unspecified atrial fibrillation Status: Chronic (5) AMS (altered mental status): Code(s): R41.82 - Altered mental status, unspecified Status: Acute (6) Type 2 diabetes mellitus: Code(s): E11.9 - Type 2 diabetes mellitus without complications Status: Chronic Plan (1) Severe sepsis: Code(s): A41.9 - Sepsis, unspecified organism; R65.20 - Severe sepsis without septic shock Status: Acute Assessment and Plan: 07/05: Patient presented from custodial, with lethargy, generalized weakness, altered mental status, was found to have left ureteral stone with hydronephrosis, status post cystoscopy, retrograde pyelogram with stent placement to left proximal ureter. CTA Ch/A/P showing left-sided hydroureteronephrosis secondary to a 9 mm stone in the proximal to mid left ureter. No PE or aortic dissection. 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 Urology consulted and patient underwent cystoscopy, left retrograde pyelogram, left ureteral stent placement 07/05/24. Purulent drainage was seen once the stent was placed. Patient was given adequate amount of IV fluids, Lactic acid was initially elevated which has normalized -patient has not required any pressors at this time as blood pressures have been stable MRSA nasal swab negative. BCx 07/05: ecoli Patient was on linezolid and Zosyn, (07/05); discontinue linezolid and started vancomycin 07/06 Creatinine trending down. WBC normal now. She is still having fevers. Old Cx reviewed with most showing EColi and Klebsiella that are nair-sensitive. She did have ESBL EColi in a UCx on 07/28/19. changed Zosyn to Meropenem, stop Vanco repeat BCX 07/08 now afeb. Remove IJ central line (2) Acute pyelonephritis: Code(s): N10 - Acute pyelonephritis Status: Acute Assessment and Plan: Acute pyelonephritis related to left ureteral stone and hydronephrosis As above (3) Hydronephrosis due to obstruction of ureter: Code(s): N13.1 - Hydronephrosis with ureteral stricture, not elsewhere classified Status: Acute Assessment and Plan: Urology following, status post cystoscopy, retrograde pyelogram, left proximal stent placement on 07/05/2024 (4) Atrial fibrillation: Qualifiers: Atrial fibrillation type: unspecified chronic Qualified Code(s): I48.20 - Chronic atrial fibrillation, unspecified Code(s): I48.91 - Unspecified atrial fibrillation Status: Chronic Assessment and Plan: Patient does have a history of AFib on apixaban at home. 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 Resume oral metoprolol when able. (5) AMS (altered mental status): Code(s): R41.82 - Altered mental status, unspecified Status: Acute Assessment and Plan: Altered mental status mostly likely secondary to severe sepsis, UTI, pyelonephritis -07/05: CT brain was negative for any acute intracranial abnormality Ammonia <9. TSH normal. somnolent. Monitor mental status. May need NGT for meds/nutrition if persistently altered. s/w D5 1/2NS 125 ML/H Type 2 diabetes mellitus: Code(s): E11.9 - Type 2 diabetes mellitus without complications Status: Chronic Assessment and Plan: Accu-Cheks and sliding scale insulin Holding Lantus since patient is not taking p.o. diet Thrombocytopenia - plt count dropped suspecting related to consumption from sepsis. She does have borderline enlarged spleen. Follow. DVT prophylaxis: SCDs, no chemoprophylaxis due to thrombocytopenia Stress ulcer prophylaxis: Protonix Code Status: Do not resuscitate Subjective Date/time seen: 07/08/24 09:27 Interval history: Saw and examined the patient. Patient still confused, arousable, cannot provide history. No new issue even overnight Afebrile overnight, blood pressure stable, blood culture grows E coli, pending susceptibility Exam Narrative: GENERAL: Ill-appearing in no acute distress. Well-nourished. - EYES: EOMI. Anicteric. - HENT: Dry mucous membranes. Right IJ catheter - LUNGS: Clear to auscultation bilateral ly, no wheezing, rhonchi, or rales. - CARDIOVASCULAR: Regular rate and rhyth m. No murmur. No JVD. - ABDOMEN: Soft, non-tender and non-dist ended. No palpable masses. - EXTREMITIES: No edema. Peripheral puls es 2+. Non-tender. - NEUROLOGIC: Moving all extremities - PSYCHIATRIC: Confused, arousable, not oriented x 3. - SKIN: No rashes or lesions. Warm. - LYMPH: No cervical lymphadenopathy. Objective Data Vital Signs Vital Signs: Vital Signs - 24 hr 07/07/24 10:00 07/07/24 10:43 07/07/24 10:55 Temperature Pulse Rate 106 H Respiratory Rate Blood Pressure Pulse Oximetry 99 82 L Oxygen Delivery Nasal Cannula Room Air Oxygen Flow Rate 2 Fraction of Inspired Oxygen 07/07/24 12:00 07/07/24 12:00 07/07/24 12:00 Temperature 99.6 F Pulse Rate 96 101 H Respiratory Rate 17 Blood Pressure 133/80 Pulse Oximetry 97 97 Oxygen Delivery Nasal Cannula Oxygen Flow Rate 2 Fraction of Inspired Oxygen 07/07/24 14:00 07/07/24 16:00 07/07/24 16:00 Temperature Pulse Rate 99 109 H Respiratory Rate Blood Pressure Pulse Oximetry 97 Oxygen Delivery Nasal Cannula Oxygen Flow Rate 2 Fraction of Inspired Oxygen 07/07/24 16:00 07/07/24 18:00 07/07/24 20:00 Temperature 100.0 F H Pulse Rate 109 H 110 H 116 H Respiratory Rate 16 19 Blood Pressure 143/94 H Pulse Oximetry 97 97 Oxygen Delivery Nasal Cannula Oxygen Flow Rate 1 Fraction of Inspired Oxygen 07/07/24 20:00 07/07/24 20:30 07/07/24 21:14 Temperature 98.4 F Pulse Rate 110 H 109 H 116 H Respiratory Rate 19 Blood Pressure 136/82 Pulse Oximetry 96 Oxygen Delivery Oxygen Flow Rate Fraction of Inspired Oxygen 07/07/24 22:00 07/07/24 23:21 07/08/24 00:00 Temperature 99.3 F Pulse Rate 91 97 93 Respiratory Rate 22 H 22 H Blood Pressure 144/80 H Pulse Oximetry 96 96 Oxygen Delivery Nasal Cannula Oxygen Flow Rate 1 Fraction of Inspired Oxygen 07/08/24 00:00 07/08/24 02:00 07/08/24 03:46 Temperature 98.3 F Pulse Rate 93 104 H 115 H Respiratory Rate 22 H Blood Pressure 141/74 H Pulse Oximetry 96 Oxygen Delivery Oxygen Flow Rate Fraction of Inspired Oxygen 07/08/24 04:00 07/08/24 04:00 07/08/24 06:00 Temperature Pulse Rate 95 95 97 Respiratory Rate 22 H Blood Pressure Pulse Oximetry 96 Oxygen Delivery Nasal Cannula Oxygen Flow Rate 1 Fraction of Inspired Oxygen 28 07/08/24 07:33 Temperature 98.1 F Pulse Rate 108 H Respiratory Rate 18 Blood Pressure 146/97 H Pulse Oximetry 98 Oxygen Delivery Oxygen Flow Rate Fraction of Inspired Oxygen Intake/Output Intake/Output: Intake & Output 07/05/24 07/06/24 07/07/24 07/08/24 23:59 23:59 23:59 23:59 Intake Total 3691.7 1347.9 300 Output Total 1000 1100 400 Balance 3691.7 347.9 -800 -400 Meds/Results Medications: Active Medications Generic Name Dose Route Start Last Admin Trade Name Freq PRN Reason Stop Dose Admin Acetaminophen 650 mg 07/05/24 12:59 Acetaminophen 325 Mg Tablet PO Q4H PRN Mild Pain (1-3) or Fever Acetaminophen 650 mg 07/06/24 04:59 07/06/24 21:09 Acetaminophen 650 Mg Suppository RECTAL 650 mg Q6H PRN Administration Mild Pain (1-3/ Fever IF NPO Dextrose 12.5 gm 07/05/24 13:02 Dextrose 50% 25 Gm/50 Ml Syringe IV PUSH PRN PRN Hypoglycemia Protocol Diltiazem HCl 120 mg 07/05/24 16:20 07/05/24 18:39 Diltiazem Hcl Cd 120 Mg Cap.24hr PO Not Given QAM CRYSTAL Escitalopram Oxalate 20 mg 07/06/24 09:00 Escitalopram Oxalate 10 Mg Tablet PO DAILY [facility]AL Glucagon 1 mg 07/05/24 13:02 Glucagon For Inj 1 Mg Vial IM PRN PRN Hypoglycemia Protocol Glucose 15 gm 07/05/24 13:02 Glucose Oral Gel 15 Gm Of Glucse In 37.5 Gm Tube PO PRN PRN Hypoglycemia Protocol Dextrose 1,000 mls @ 100 mls/hr 07/05/24 13:02 Dextrose 5% 1,000 Ml IVPB PRN PRN Hypoglycemia Protocol Meropenem 1 gm in 100 mls @ 200 mls/hr 07/07/24 20:00 07/08/24 08:41 IVPB 200 mls/hr Q12H [facility]YSTAL Administration Insulin Aspart 4 units 07/05/24 17:00 07/08/24 08:41 Insulin Aspart (*Bkc) 100 Units/Ml SUB-Q Not Given TIDWM [facility] Insulin Aspart 3 - 6 units 07/06/24 08:00 07/08/24 08:05 Insulin Aspart (*Bkc) 100 Units/Ml SUB-Q Not Given TIDWM [facility] Protocol Insulin Aspart 1 - 3 units 07/05/24 21:00 07/07/24 23:32 Insulin Aspart (*Bkc) 100 Units/Ml SUB-Q Not Given HS [facility] Protocol Insulin Glargine 12 units 07/06/24 09:00 Insulin Glargine (*Bkc) 100 Units/Ml SUB-Q DAILY [facility] Metoprolol Tartrate 12.5 mg 07/05/24 13:00 07/06/24 05:27 Metoprolol Tartrate 12.5 Mg Tablet PO Not Given Q6HR [facility] Metoprolol Tartrate 5 mg 07/06/24 07:19 07/07/24 21:14 Metoprolol Tartrate Inj 5 Mg/5 Ml Vial IV PUSH 5 mg Q6H PRN Administration Tachycardia Ondansetron HCl 4 mg 07/05/24 12:59 Ondansetron Inj 4 Mg/2 Ml Vial IV PUSH Q4H PRN Nausea Pantoprazole Sodium 40 mg 07/07/24 09:00 07/08/24 08:41 Pantoprazole Sodium Iv 40 Mg Vial IV PUSH 40 mg QAM CRYSTAL Administration Polymyxin/Trimethoprim Sulfate 1 drop 07/05/24 17:00 07/08/24 08:41 Polymyxin/Trimethoprim Ophth 10 Ml Drops EACH EYE 1 drop Q4HWA [facility]STAL Administration Sodium Chloride 10 ml 07/05/24 22:00 07/08/24 04:36 Central Line Flush IV PUSH 10 ml Q8HR [facility]YSTAL Administration Sodium Chloride 20 ml 07/05/24 20:47 Central Line Flush IV PUSH PRN PRN after blood draws Radiology Results: ITS Impressions Head CT 07/05/24 14:26 IMPRESSION: Cerebral atherosclerosis and proximal vessel ischemic changes of the cerebral white matter No acute intracranial finding or significant change since 01/06/2018 Chest/Abdomen/Pelvis CTA 07/05/24 14:55 IMPRESSION: Left-sided hydroureteronephrosis secondary to a 9 mm stone in the proximal to mid left ureter. No pulmonary embolus. No aortic dissection. 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 Chest X-Ray 07/05/24 18:55 IMPRESSION: No focal infiltrate or effusion. Right internal jugular central venous catheter in good position and ready for immediate use Labs Labs: Laboratory Results - last 24 hr 07/07/24 07/07/24 07/07/24 08:50 12:45 16:01 WBC RBC Hgb Hct MCV MCH MCHC RDW Plt Count MPV Immature Gran % (Auto) Neut % (Auto) Lymph % (Auto) [place] % (Auto) Eos % (Auto) Baso % (Auto) Lymph # (Auto) [place] # (Auto) Eos # (Auto) Baso # (Auto) Abs Immat Gran (auto) Absolute Neuts (auto) Absolute Nucleated RBC Nucleated RBC % Platelet Estimate % Immature Plt Fraction Hypochromasia Poikilocytosis Anisocytosis Ovalocytes [place] Cells Schistocytes Sodium Potassium Chloride Carbon Dioxide Anion Gap BUN Creatinine Estim Creat Clear Calc Estimated GFR Glucose POC Capillary Glucose 146 H 134 H Calcium Phosphorus Magnesium Total Bilirubin AST ALT Alkaline Phosphatase Total Protein Albumin Vancomycin Trough 6.8 L 07/07/24 07/08/24 07/08/24 20:16 04:34 07:38 WBC 8.6 RBC 3.60 L Hgb 8.7 L Hct 28.2 L MCV 78.3 L MCH 24.2 L MCHC 30.9 L RDW 17.6 H Plt Count 60 L MPV 11.9 H Immature Gran % (Auto) 0.3 Neut % (Auto) 75.9 H Lymph % (Auto) 12.3 L [place] % (Auto) 11.1 H Eos % (Auto) 0.2 Baso % (Auto) 0.2 Lymph # (Auto) 1.06 [place] # (Auto) 1.0 H Eos # (Auto) 0.0 Baso # (Auto) 0.0 Abs Immat Gran (auto) 0.03 Absolute Neuts (auto) 6.5 Absolute Nucleated RBC 0.000 Nucleated RBC % 0.0 Platelet Estimate Decreased % Immature Plt Fraction 6.7 Hypochromasia 1+ Poikilocytosis 1+ Anisocytosis 1+ Ovalocytes 1+ [place] Cells 1+ Schistocytes None seen Sodium 144 Potassium 3.5 Chloride 113 H Carbon Dioxide 29 Anion Gap 2 L BUN 31 H Creatinine 1.33 H Estim Creat Clear Calc 43 Estimated GFR 40 L Glucose 147 H POC Capillary Glucose 146 H 155 H Calcium 10.1 Phosphorus 2.4 L Magnesium 1.9 Total Bilirubin 0.7 AST 19 ALT 18 Alkaline Phosphatase 110 Total Protein 6.0 L Albumin 2.5 L Vancomycin Trough
--- NOTE | 2024-07-08 09:35 | PCOTNOTE ---
Attempted OT evaluation. Patient too lethargic to participate in therapy 0935. Will follow.
[2024-07-08 11:49] LABS: Glucose Point of Care 152 mg/dl (65-105)
--- NOTE | 2024-07-08 13:15 | PCSTNOTE ---
MBS was scheduled but pt was too lethargic; will be attempted tomorrow.
[2024-07-08 16:36] LABS: Glucose Point of Care 158 mg/dl (65-105)
[2024-07-08] MEDS: DEXTROSE 5%/0.45% SOD CHL 1,000 ML 125 ML IV CONT (20:46)
[2024-07-08 20:52] LABS: Glucose Point of Care 145 mg/dl (65-105)
[2024-07-09] VITALS (12 sets, daily range): BP systolic 118–164; BP diastolic 56–88; PULSE 61–112; RESP 12–20; TEMP 36.1–37.2; O2SAT 92–99; BMI 37.1
[2024-07-09] MEDS: DEXTROSE 5%/0.45% SOD CHL 1,000 ML 125 ML IV CONT ×2 (05:29→20:32)
[2024-07-09] MEDS: POLYMYXIN/TRIMETHOPRIM OPHTH 10 ML DROPS 1 DROP EACH EYE ×4 (05:29→20:33)
[2024-07-09 07:29] LABS: Glucose Point of Care 191 mg/dl (65-105)
--- NOTE | 2024-07-09 08:36 | PCPTNOTE ---
attempted PT eval, pt stated she needs to save strength for her tests today and politely declined evaluation, pt was educated on the importance of participation to gain strength, pt unable to keep eye opens at the end of conversation, will follow as pt is more alert
--- NOTE | 2024-07-09 09:05 | P.PNIM_ITS ---
Progress Note: A&P Assessment and Plan (1) Severe sepsis: Code(s): A41.9 - Sepsis, unspecified organism; R65.20 - Severe sepsis without septic shock Status: Acute (2) Acute pyelonephritis: Code(s): N10 - Acute pyelonephritis Status: Acute (3) Hydronephrosis due to obstruction of ureter: Code(s): N13.1 - Hydronephrosis with ureteral stricture, not elsewhere classified Status: Acute (4) Atrial fibrillation: Qualifiers: Atrial fibrillation type: unspecified chronic Qualified Code(s): I48.20 - Chronic atrial fibrillation, unspecified Code(s): I48.91 - Unspecified atrial fibrillation Status: Chronic (5) AMS (altered mental status): Code(s): R41.82 - Altered mental status, unspecified Status: Acute (6) Type 2 diabetes mellitus: Code(s): E11.9 - Type 2 diabetes mellitus without complications Status: Chronic Plan (1) Severe sepsis: Code(s): A41.9 - Sepsis, unspecified organism; R65.20 - Severe sepsis without septic shock Status: Acute Assessment and Plan: 07/05: Patient presented from senior care, with lethargy, generalized weakness, altered mental status, was found to have left ureteral stone with hydronephrosis, status post cystoscopy, retrograde pyelogram with stent placement to left proximal ureter. CTA Ch/A/P showing left-sided hydroureteronephrosis secondary to a 9 mm stone in the proximal to mid left ureter. No PE or aortic dissection. 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 Urology consulted and patient underwent cystoscopy, left retrograde pyelogram, left ureteral stent placement 07/05/24. Purulent drainage was seen once the stent was placed. Patient was given adequate amount of IV fluids, Lactic acid was initially elevated which has normalized -patient has not required any pressors at this time as blood pressures have been stable MRSA nasal swab negative. BCx 07/05: ecoli Patient was on linezolid and Zosyn, (07/05); discontinue linezolid and started vancomycin 07/06 Creatinine trending down. WBC normal now. She is still having fevers. Old Cx reviewed with most showing EColi and Klebsiella that are nair-sensitive. She did have ESBL EColi in a UCx on 07/28/19. changed Zosyn to Meropenem, stop Vanco repeat BCX 07/08 now afeb. Remove IJ central line 07/09: Blood culture grows E coli, pansensitive, will changes ceftriaxone IV, repeat blood culture 07/08 no growth so far Continue meropenem, patient is allergic to cephalosporin (2) Acute pyelonephritis: Code(s): N10 - Acute pyelonephritis Status: Acute Assessment and Plan: Acute pyelonephritis related to left ureteral stone and hydronephrosis As above (3) Hydronephrosis due to obstruction of ureter: Code(s): N13.1 - Hydronephrosis with ureteral stricture, not elsewhere classified Status: Acute Assessment and Plan: Urology following, status post cystoscopy, retrograde pyelogram, left proximal stent placement on 07/05/2024 (4) Atrial fibrillation: Qualifiers: Atrial fibrillation type: unspecified chronic Qualified Code(s): I48.20 - Chronic atrial fibrillation, unspecified Code(s): I48.91 - Unspecified atrial fibrillation Status: Chronic Assessment and Plan: Patient does have a history of AFib on apixaban at home. 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 Resume oral metoprolol when able. (5) AMS (altered mental status): Code(s): R41.82 - Altered mental status, unspecified Status: Acute Assessment and Plan: Altered mental status mostly likely secondary to severe sepsis, UTI, pyelonephritis -07/05: CT brain was negative for any acute intracranial abnormality Ammonia <9. TSH normal. somnolent. Monitor mental status. May need NGT for meds/nutrition if persistently altered. s/w D5 1/2NS 125 ML/H Type 2 diabetes mellitus: Code(s): E11.9 - Type 2 diabetes mellitus without complications Status: Chronic Assessment and Plan: Accu-Cheks and sliding scale insulin Holding Lantus since patient is not taking p.o. diet Thrombocytopenia - plt count dropped suspecting related to consumption from sepsis. She does have borderline enlarged spleen. Follow. DVT prophylaxis: SCDs, no chemoprophylaxis due to thrombocytopenia Stress ulcer prophylaxis: Protonix Code Status: Do not resuscitate May discharge patient in 1-2 days if her condition continue to improve Subjective Date/time seen: 07/09/24 09:05 Interval history: Saw and examined the patient. Patient still confused, but mental status improving, patient has a general weakness. Denies chest pain shortness breast, abdomen pain, not clear if patient can not provide reliable history. No new issue even overnight Afebrile overnight, blood pressure stable, blood culture grows E coli, pending susceptibility Exam Narrative: GENERAL: Ill-appearing in no acute distress. Well-nourished. - EYES: EOMI. Anicteric. - HENT: Dry mucous membranes. Right IJ catheter - LUNGS: Clear to auscultation bilateral ly, no wheezing, rhonchi, or rales. - CARDIOVASCULAR: Regular rate and rhyth m. No murmur. No JVD. - ABDOMEN: Soft, non-tender and non-dist ended. No palpable masses. - EXTREMITIES: No edema. Peripheral puls es 2+. Non-tender. - NEUROLOGIC: Moving all extremities - PSYCHIATRIC: Confused, arousable, pat ient knows her age, - SKIN: No rashes or lesions. Warm. - LYMPH: No cervical lymphadenopathy. Objective Data Vital Signs Vital Signs: Vital Signs - 24 hr 07/08/24 10:00 07/08/24 11:19 07/08/24 12:00 Temperature 97.6 F Pulse Rate 96 108 H 104 H Respiratory Rate 18 Blood Pressure 149/86 H Pulse Oximetry 99 Oxygen Delivery Oxygen Flow Rate Fraction of Inspired Oxygen 07/08/24 14:00 07/08/24 15:03 07/08/24 16:00 Temperature 98.4 F Pulse Rate 109 H 105 H Respiratory Rate 16 Blood Pressure 131/62 Pulse Oximetry 95 98 Oxygen Delivery Nasal Cannula Oxygen Flow Rate 1 Fraction of Inspired Oxygen 07/08/24 16:00 07/08/24 18:00 07/08/24 19:18 Temperature 97.3 F L Pulse Rate 114 H 105 H 94 Respiratory Rate 14 Blood Pressure 143/74 H Pulse Oximetry 95 Oxygen Delivery Oxygen Flow Rate Fraction of Inspired Oxygen 07/08/24 20:00 07/08/24 20:00 07/08/24 20:01 Temperature Pulse Rate 97 97 Respiratory Rate 14 Blood Pressure Pulse Oximetry 93 93 Oxygen Delivery Nasal Cannula Nasal Cannula Oxygen Flow Rate 1 1 Fraction of Inspired Oxygen 07/08/24 22:00 07/08/24 23:55 07/09/24 00:00 Temperature Pulse Rate 92 89 Respiratory Rate 20 12 Blood Pressure Pulse Oximetry 95 92 Oxygen Delivery [place]op[place] Nasal Cannula Oxygen Flow Rate 1 Fraction of Inspired Oxygen 28 07/09/24 00:00 07/09/24 00:34 07/09/24 02:00 Temperature 98.4 F Pulse Rate 89 95 86 Respiratory Rate 12 Blood Pressure 153/82 H Pulse Oximetry 92 Oxygen Delivery Oxygen Flow Rate Fraction of Inspired Oxygen 07/09/24 04:00 07/09/24 04:00 07/09/24 04:09 Temperature 98.9 F Pulse Rate 112 H 112 H 89 Respiratory Rate 12 20 Blood Pressure 140/88 Pulse Oximetry 92 96 Oxygen Delivery Nasal Cannula Oxygen Flow Rate 1 Fraction of Inspired Oxygen 07/09/24 05:56 07/09/24 08:00 Temperature 98.4 F Pulse Rate 78 98 Respiratory Rate 16 Blood Pressure 118/79 Pulse Oximetry 98 Oxygen Delivery Oxygen Flow Rate Fraction of Inspired Oxygen Intake/Output Intake/Output: Intake & Output 07/06/24 07/07/24 07/08/24 07/09/24 23:59 23:59 23:59 23:59 Intake Total 1347.9 478 013 5769 Output Total 1000 1100 1050 600 Balance 347.9 -800 -850 1480 Meds/Results Medications: Active Medications Generic Name Dose Route Start Last Admin Trade Name Freq PRN Reason Stop Dose Admin Acetaminophen 650 mg 07/05/24 12:59 Acetaminophen 325 Mg Tablet PO Q4H PRN Mild Pain (1-3) or Fever Acetaminophen 650 mg 07/06/24 04:59 07/06/24 21:09 Acetaminophen 650 Mg Suppository RECTAL 650 mg Q6H PRN Administration Mild Pain (1-3/ Fever IF NPO Dextrose 12.5 gm 07/05/24 13:02 Dextrose 50% 25 Gm/50 Ml Syringe IV PUSH PRN PRN Hypoglycemia Protocol Diltiazem HCl 120 mg 07/05/24 16:20 07/05/24 18:39 Diltiazem Hcl Cd 120 Mg Cap.24hr PO Not Given QAM CRYSTAL Escitalopram Oxalate 20 mg 07/06/24 09:00 Escitalopram Oxalate 10 Mg Tablet PO DAILY CRYSTAL Glucagon 1 mg 07/05/24 13:02 Glucagon For Inj 1 Mg Vial IM PRN PRN Hypoglycemia Protocol Glucose 15 gm 07/05/24 13:02 Glucose Oral Gel 15 Gm Of Glucse In 37.5 Gm Tube PO PRN PRN Hypoglycemia Protocol Dextrose 1,000 mls @ 100 mls/hr 07/05/24 13:02 Dextrose 5% 1,000 Ml IVPB PRN PRN Hypoglycemia Protocol Meropenem 1 gm in 100 mls @ 200 mls/hr 07/07/24 20:00 07/08/24 21:15 IVPB Infused Q12H CRYSTAL Infusion Dextrose/Sodium Chloride 1,000 mls @ 125 mls/hr 07/08/24 14:55 07/09/24 05:29 Dextrose 5% Sodium Chloride 0.45% IV CONT 125 mls/hr .Q8H CRYSTAL Administration Insulin Aspart 4 units 07/05/24 17:00 07/08/24 20:14 Insulin Aspart (*Bkc) 100 Units/Ml SUB-Q Not Given TIDWM [facility] Insulin Aspart 3 - 6 units 07/06/24 08:00 07/08/24 20:14 Insulin Aspart (*Bkc) 100 Units/Ml SUB-Q Not Given TIDWM [facility] Protocol Insulin Aspart 1 - 3 units 07/05/24 21:00 07/08/24 20:47 Insulin Aspart (*Bkc) 100 Units/Ml SUB-Q Not Given HS [facility] Protocol Insulin Glargine 12 units 07/06/24 09:00 Insulin Glargine (*Bkc) 100 Units/Ml SUB-Q DAILY [facility] Metoprolol Tartrate 12.5 mg 07/05/24 13:00 07/06/24 05:27 Metoprolol Tartrate 12.5 Mg Tablet PO Not Given Q6HR [facility] Metoprolol Tartrate 5 mg 07/06/24 07:19 07/07/24 21:14 Metoprolol Tartrate Inj 5 Mg/5 Ml Vial IV PUSH 5 mg Q6H PRN Administration Tachycardia Ondansetron HCl 4 mg 07/05/24 12:59 Ondansetron Inj 4 Mg/2 Ml Vial IV PUSH Q4H PRN Nausea Pantoprazole Sodium 40 mg 07/07/24 09:00 07/08/24 08:41 Pantoprazole Sodium Iv 40 Mg Vial IV PUSH 40 mg QAM CRYSTAL Administration Polymyxin/Trimethoprim Sulfate 1 drop 07/05/24 17:00 07/09/24 05:29 Polymyxin/Trimethoprim Ophth 10 Ml Drops EACH EYE 1 drop Q4HWA CRYSTAL Administration Potassium Chloride 20 meq 07/08/24 15:00 07/08/24 15:29 Potassium Chloride 20 Meq Packet (For Liquid) PO Not Given DAILY [facility]YSTAL Sodium Chloride 20 ml 07/05/24 20:47 Central Line Flush IV PUSH PRN PRN after blood draws Radiology Results: ITS Impressions Head CT 07/05/24 14:26 IMPRESSION: Cerebral atherosclerosis and proximal vessel ischemic changes of the cerebral white matter No acute intracranial finding or significant change since 01/06/2018 Chest/Abdomen/Pelvis CTA 07/05/24 14:55 IMPRESSION: Left-sided hydroureteronephrosis secondary to a 9 mm stone in the proximal to mid left ureter. No pulmonary embolus. No aortic dissection. 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 Chest X-Ray 07/05/24 18:55 IMPRESSION: No focal infiltrate or effusion. Right internal jugular central venous catheter in good position and ready for immediate use Labs Labs: Laboratory Results - last 24 hr 07/08/24 07/08/24 07/08/24 11:25 16:00 20:46 POC Capillary Glucose 152 H 158 H 145 H 07/09/24 07:27 POC Capillary Glucose 191 H
[2024-07-09] MEDS: PANTOPRAZOLE SODIUM IV 40 MG VIAL IV PUSH (09:23)
[2024-07-09] MEDS: MEROPENEM 1 GM/NS 100 ML 1 GM/100 ML BAG IVPB (09:23)
[2024-07-09 10:03] LABS: Basophils Percent Auto 0.2 % (0.2-1.2); Eosinophils Absolute Auto 0.1 K/mm3 (0-0.3); Eosinophils Percent Auto 0.6 % (0-4.4); Hematocrit 29.7 % (37.0-47.0); Hemoglobin 9.2 g/dL (12.0-15.0); Immature Granulocyte Absolute 0.07 K/mm3 (0.00-0.031); Immature Granulocyte Percent A 0.8 % (0-0.5); Immature Platelet Fraction Pct 7.3 % (0.9-11.2); Lymphocytes Absolute Auto 1.05 K/mm3 (0.9-3.2); Lymphocytes Percent Auto 11.6 % (18.3-44.2); Mean Corpuscular Volume 77.5 fl (80-100); Monocytes Absolute Auto 0.8 K/mm3 (0.1-0.6); Monocytes Percent Auto 9.1 % (2.6-8.5); Neutrophils Percent Auto 77.7 % (45.5-73.1); Platelet Count Result 55 k/mm3 (150-375); Red Blood Count 3.83 M/mm3 (4.2-5.4); Red Cell Distribution Width 17.7 % (11.5-14.5)
[2024-07-09 10:08] LABS: Chloride 113 mmol/L (98-107)
[2024-07-09 10:14] LABS: Anion Gap 2 mmol/L (4-12); Blood Urea Nitrogen 29 mg/dL (7-17); Calcium 9.6 mg/dL (8.4-10.2); Carbon Dioxide 29 mmol/L (22-30); Estimated CRCL calculation 59 ml/min; Estimated Glomerular Filt Rate 58; Glucose 185 mg/dL (65-110); Potassium 3.5 mmol/L (3.4-5.0); Sodium 144 mmol/L (137-145)
[2024-07-09 10:35] LABS: Platelet Estimate Decreased (Adequate)
[2024-07-09 10:36] LABS: Anisocytosis 1+; Hypochromasia 2+; Ovalocytes 1+; Schistocytes Rare
[2024-07-09 12:47] LABS: Glucose Point of Care 185 mg/dl (65-105)
--- NOTE | 2024-07-09 14:51 | PCSTNOTE ---
Please refer to the Modified Barium Swallow Evaluation in the EMR.
[2024-07-09 16:47] LABS: Glucose Point of Care 201 mg/dl (65-105)
[2024-07-09] MEDS: INSULIN ASPART (*BKC) 100 UNITS/ML SUB-Q ×2 (17:04→17:05)
[2024-07-09] MEDS: cefTRIAXone 2 GM/NS 100 ML 2 GM/100 ML BAG IVPB (20:32)
[2024-07-09 20:49] LABS: Glucose Point of Care 198 mg/dl (65-105)
--- NOTE | 2024-07-09 22:03 | PC.NURSE ---
This patient, Carol Gee, was transferred to [[id number] ] on 07/09/24 at 2203. Personal belongings sent with patient. Report given to [Russell aguilera]. Appropriate documentation sent with patient.
--- NOTE | 2024-07-09 22:28 | PC.NURSE ---
Report received from Fe HUA. Pt brought up from IMU. Pt is in lying comfortably in bed with no s/s of distress. Pt is on 1L NC and will be placed on cpap, respiratory made aware of transfer. Reid in place and draining. IV fluids running per orders. Bed alarm on.
[2024-07-10] VITALS (7 sets, daily range): BP systolic 147–210; BP diastolic 81–122; PULSE 83–97; RESP 14–20; TEMP 36.2–36.9; O2SAT 93–95
[2024-07-10] MEDS: DEXTROSE 5%/0.45% SOD CHL 1,000 ML 125 ML IV CONT (05:46)
[2024-07-10 06:46] LABS: Basophils Percent Auto 0.2 % (0.2-1.2); Eosinophils Absolute Auto 0.1 K/mm3 (0-0.3); Hematocrit 29.9 % (37.0-47.0); Immature Granulocyte Absolute 0.15 K/mm3 (0.00-0.031); Immature Granulocyte Percent A 1.5 % (0-0.5); Immature Platelet Fraction Pct 8.9 % (0.9-11.2); Lymphocytes Absolute Auto 1.76 K/mm3 (0.9-3.2); Lymphocytes Percent Auto 17.4 % (18.3-44.2); Mean Corpuscular HGB Conc 30.1 g/dl (32-36); Mean Corpuscular Hemoglobin 23.4 pg (26-34); Mean Corpuscular Volume 77.9 fl (80-100); Monocytes Percent Auto 9.6 % (2.6-8.5); Neutrophils Absolute Auto 7.1 K/mm3 (1.3-6.7); Neutrophils Percent Auto 70.3 % (45.5-73.1); Platelet Count Result 79 k/mm3 (150-375); Red Blood Count 3.84 M/mm3 (4.2-5.4); Red Cell Distribution Width 17.7 % (11.5-14.5); White Blood Count 10.1 K/mm3 (4.5-10.0)
[2024-07-10 07:09] LABS: Anion Gap 1 mmol/L (4-12); Blood Urea Nitrogen 24 mg/dL (7-17); Calcium 9.1 mg/dL (8.4-10.2); Carbon Dioxide 31 mmol/L (22-30); Chloride 107 mmol/L (98-107); Estimated CRCL calculation 65 ml/min; Estimated Glomerular Filt Rate > 60; Glucose 209 mg/dL (65-110); Potassium 3.2 mmol/L (3.4-5.0); Sodium 139 mmol/L (137-145)
[2024-07-10 08:18] LABS: Glucose Point of Care 225 mg/dl (65-105)
[2024-07-10] MEDS: INSULIN ASPART (*BKC) 100 UNITS/ML SUB-Q ×6 (08:36→21:12)
[2024-07-10] MEDS: PANTOPRAZOLE SODIUM IV 40 MG VIAL IV PUSH (08:36)
[2024-07-10] MEDS: POTASSIUM CHLORIDE 20 MEQ PACKET (FOR LIQUID) PO (08:37)
--- NOTE | 2024-07-10 09:39 | PCPTNOTE ---
Attempted PT evaluation this date however pt declined due to eating breakfast. She declined getting up to a chair to eat breakfast.
--- NOTE | 2024-07-10 10:09 | PCNFU ---
Nutrition Follow-Up Complete: Inadequate energy intake related to NPO, lethargy as evidenced by NPO day 4 Diet advancement, textures appropriate for patient needs - Goal is met with Puree diet, thickened liquids Adequate PO intake when diet advanced - Progressing. 65% dinner Goal: Pt current nutrition is Heart healthy, puree diet, moderately hick L3 liquids. Nutrition recommendation: Oral nutrition supplements: Glucerna BID for additional 220 kcal and 10 g protein each (moderately thick). May need diabetic diet when intakes improve Last recorded weight is 109.7 kg. Bowel Motility: No BMs are recorded Labs Reviewed: Hgb 9.0,Hct 29.9, K+ 3.2, BUN 24, Glu 209 Meds Noted: Lantus, novolog, protonix Skin: No pressure injuries Additional Notes: Pt is more alert and slowly eating breakfast when seen. Could use help with set-up. Agreeable to supplements. Monitoring swallowing ability, diet orders, weights, labs, PO intake, plan of care Follow up in 1 day
[2024-07-10 11:26] LABS: Glucose Point of Care 251 mg/dl (65-105)
--- NOTE | 2024-07-10 12:40 | P.PNIM_ITS ---
Progress Note: A&P Assessment and Plan (1) Severe sepsis: Code(s): A41.9 - Sepsis, unspecified organism; R65.20 - Severe sepsis without septic shock Status: Acute (2) Acute pyelonephritis: Code(s): N10 - Acute pyelonephritis Status: Acute (3) Hydronephrosis due to obstruction of ureter: Code(s): N13.1 - Hydronephrosis with ureteral stricture, not elsewhere classified Status: Acute (4) Atrial fibrillation: Qualifiers: Atrial fibrillation type: unspecified chronic Qualified Code(s): I48.20 - Chronic atrial fibrillation, unspecified Code(s): I48.91 - Unspecified atrial fibrillation Status: Chronic (5) AMS (altered mental status): Code(s): R41.82 - Altered mental status, unspecified Status: Acute (6) Type 2 diabetes mellitus: Code(s): E11.9 - Type 2 diabetes mellitus without complications Status: Chronic Plan # Severe sepsis: Delete 07/05: Patient presented from long-term, with lethargy, generalized weakness, altered mental status, was found to have left ureteral stone with hydronephrosis, status post cystoscopy, retrograde pyelogram with stent placement to left proximal ureter. CTA Ch/A/P showing left-sided hydroureteronephrosis secondary to a 9 mm stone in the proximal to mid left ureter. No PE or aortic dissection. 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 Urology consulted and patient underwent cystoscopy, left retrograde pyelogram, left ureteral stent placement 07/05/24. Purulent drainage was seen once the stent was placed. Patient was given adequate amount of IV fluids, Lactic acid was initially elevated which has normalized -patient has not required any pressors at this time as blood pressures have been stable MRSA nasal swab negative. BCx 07/05: e coli Patient was on linezolid and Zosyn, (07/05); discontinue linezolid and started vancomycin 07/06 Creatinine trending down. WBC normal. Old Cx reviewed with most showing E coli and Klebsiella that are nair-sensitive. She did have ESBL EColi in a UCx on 07/28/19. changed Zosyn to Meropenem, stop Vancomycin repeat BCX 07/08 now afebrile. Remove RIJ central line 07/09: Blood culture grows E coli, pansensitive, repeat blood culture 07/08 no growth so far Continue meropenem, patient is allergic to cephalosporin however tolerating IV ceftriaxone # Acute pyelonephritis: Delete Acute pyelonephritis related to left ureteral stone and hydronephrosis As above # Hydronephrosis due to obstruction of ureter: Urology following, status post cystoscopy, retrograde pyelogram, left proximal stent placement on 07/05/2024 # Atrial fibrillation: Patient does have a history of AFib on apixaban at home. 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 for tachycardia -custom stock maker was holding Eliquis given thrombocytopenia Heart rate reasonable so will not schedule IV metoprolol. Resume oral metoprolol and Eliquis # AMS (altered mental status): Altered mental status mostly likely secondary to severe sepsis, UTI, pyelonephritis -07/05: CT brain was negative for any acute intracranial abnormality Ammonia <9. TSH normal. Monitor mental status which is improving slowly # Type 2 diabetes mellitus: Accu-Cheks and sliding scale insulin Holding Lantus since patient is not taking p.o. diet # Thrombocytopenia - plt count dropped suspecting related to consumption from sepsis. She does have borderline enlarged spleen. Follow. Slowly improving # DVT prophylaxis: SCDs, no chemoprophylaxis due to thrombocytopenia resume Eliquis # Stress ulcer prophylaxis: Protonix # Code Status: Do not resuscitate Subjective Date/time seen: 07/10/24 12:40 Interval history: No overnight events. Feels weak. Denies any chest pain shortness of breath. Review of Systems Review of Systems: All systems reviewed & are unremarkable except as noted in HPI and below Exam Narrative: GENERAL: Ill-appearing in no acute distress. Well-nourished. Frail looking - EYES: EOMI. Anicteric. - HENT: Dry mucous membranes. - LUNGS: Clear to auscultation bilateral ly, no wheezing, rhonchi, or rales. - CARDIOVASCULAR: Regular rate and rhyth m. No murmur. No JVD. - ABDOMEN: Soft, non-tender and non-dist ended. No palpable masses. - EXTREMITIES: No edema. Peripheral puls es 2+. Non-tender. - NEUROLOGIC: Moving all extremities - PSYCHIATRIC: Alert awake and conversa nt slow to respond - SKIN: No rashes or lesions. Warm. - LYMPH: No cervical lymphadenopathy. Objective Data Vital Signs Vital Signs: Vital Signs - 24 hr 07/09/24 16:00 07/09/24 20:00 07/09/24 22:00 Temperature 97.6 F 97.0 F L Pulse Rate 98 98 94 Respiratory Rate 16 16 20 Blood Pressure 128/56 L 164/79 H Pulse Oximetry 99 99 94 Oxygen Delivery Nasal Cannula Oxygen Flow Rate 1 Fraction of Inspired Oxygen 28 07/09/24 22:42 07/10/24 06:00 07/10/24 08:37 Temperature 97.4 F L Pulse Rate 61 97 Respiratory Rate 20 18 Blood Pressure 154/85 H Pulse Oximetry 95 95 95 Oxygen Delivery Autopap Autopap Oxygen Flow Rate 1 Fraction of Inspired Oxygen Intake/Output Intake/Output: Intake & Output 07/07/24 07/08/24 07/09/24 07/10/24 23:59 23:59 23:59 23:59 Intake Total 625 416 0836 1730 Output Total 1100 1050 1250 1450 Balance -800 -850 2430 280 Meds/Results Medications: Active Medications Generic Name Dose Route Start Last Admin Trade Name Freq PRN Reason Stop Dose Admin Acetaminophen 650 mg 07/05/24 12:59 Acetaminophen 325 Mg Tablet PO Q4H PRN Mild Pain (1-3) or Fever Acetaminophen 650 mg 07/06/24 04:59 07/06/24 21:09 Acetaminophen 650 Mg Suppository RECTAL 650 mg Q6H PRN Administration Mild Pain (1-3/ Fever IF NPO Dextrose 12.5 gm 07/05/24 13:02 Dextrose 50% 25 Gm/50 Ml Syringe IV PUSH PRN PRN Hypoglycemia Protocol Diltiazem HCl 120 mg 07/05/24 16:20 07/05/24 18:39 Diltiazem Hcl Cd 120 Mg Cap.24hr PO Not Given QAM CRYSTAL Escitalopram Oxalate 20 mg 07/06/24 09:00 Escitalopram Oxalate 10 Mg Tablet PO DAILY CRYSTAL Glucagon 1 mg 07/05/24 13:02 Glucagon For Inj 1 Mg Vial IM PRN PRN Hypoglycemia Protocol Glucose 15 gm 07/05/24 13:02 Glucose Oral Gel 15 Gm Of Glucse In 37.5 Gm Tube PO PRN PRN Hypoglycemia Protocol Dextrose 1,000 mls @ 100 mls/hr 07/05/24 13:02 Dextrose 5% 1,000 Ml IVPB PRN PRN Hypoglycemia Protocol Dextrose/Sodium Chloride 1,000 mls @ 125 mls/hr 07/08/24 14:55 07/10/24 05:46 Dextrose 5% Sodium Chloride 0.45% IV CONT 125 mls/hr .Q8H CRYSTAL Administration Ceftriaxone Sodium 2 gm in 100 mls @ 200 mls/hr 07/09/24 21:00 07/09/24 20:32 Rocephin 2 Gm/Ns 100 Ml IVPB 200 mls/hr Q24H CRYSTAL Administration Insulin Aspart 4 units 07/05/24 17:00 07/10/24 08:36 Insulin Aspart (*Bkc) 100 Units/Ml SUB-Q 4 units TIDWM CRYSTAL Administration Insulin Aspart 3 - 6 units 07/06/24 08:00 07/10/24 08:36 Insulin Aspart (*Bkc) 100 Units/Ml SUB-Q 3 units TIDWM CRYSTAL Administration Protocol Insulin Aspart 1 - 3 units 07/05/24 21:00 07/09/24 20:33 Insulin Aspart (*Bkc) 100 Units/Ml SUB-Q Not Given HS [facility] Protocol Insulin Glargine 12 units 07/06/24 09:00 Insulin Glargine (*Bkc) 100 Units/Ml SUB-Q DAILY CRYSTAL Metoprolol Tartrate 12.5 mg 07/05/24 13:00 07/06/24 05:27 Metoprolol Tartrate 12.5 Mg Tablet PO Not Given Q6HR CRYSTAL Metoprolol Tartrate 5 mg 07/06/24 07:19 07/07/24 21:14 Metoprolol Tartrate Inj 5 Mg/5 Ml Vial IV PUSH 5 mg Q6H PRN Administration Tachycardia Ondansetron HCl 4 mg 07/05/24 12:59 Ondansetron Inj 4 Mg/2 Ml Vial IV PUSH Q4H PRN Nausea Pantoprazole Sodium 40 mg 07/07/24 09:00 07/10/24 08:36 Pantoprazole Sodium Iv 40 Mg Vial IV PUSH 40 mg QAM CRYSTAL Administration Polymyxin/Trimethoprim Sulfate 1 drop 07/05/24 17:00 07/10/24 04:27 Polymyxin/Trimethoprim Ophth 10 Ml Drops EACH EYE Not Given Q4HWA CRYSTAL Potassium Chloride 20 meq 07/08/24 15:00 07/10/24 08:37 Potassium Chloride 20 Meq Packet (For Liquid) PO 20 meq DAILY CRYSTAL Administration Sodium Chloride 20 ml 07/05/24 20:47 Central Line Flush IV PUSH PRN PRN after blood draws Radiology Results: ITS Impressions Head CT 07/05/24 14:26 IMPRESSION: Cerebral atherosclerosis and proximal vessel ischemic changes of the cerebral white matter No acute intracranial finding or significant change since 01/06/2018 Chest/Abdomen/Pelvis CTA 07/05/24 14:55 IMPRESSION: Left-sided hydroureteronephrosis secondary to a 9 mm stone in the proximal to mid left ureter. No pulmonary embolus. No aortic dissection. 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 Chest X-Ray 07/05/24 18:55 IMPRESSION: No focal infiltrate or effusion. Right internal jugular central venous catheter in good position and ready for immediate use Modified Barium Swallow 07/09/24 13:38 IMPRESSION: 1. Laryngeal penetration. 2. Please refer to the speech therapy report for recommendations. Labs Labs: Laboratory Results - last 24 hr 07/09/24 07/09/24 07/09/24 11:50 16:44 20:26 WBC RBC Hgb Hct MCV MCH MCHC RDW Plt Count MPV Immature Gran % (Auto) Neut % (Auto) Lymph % (Auto) [place] % (Auto) Eos % (Auto) Baso % (Auto) Lymph # (Auto) [place] # (Auto) Eos # (Auto) Baso # (Auto) Abs Immat Gran (auto) Absolute Neuts (auto) Absolute Nucleated RBC Nucleated RBC % % Immature Plt Fraction Sodium Potassium Chloride Carbon Dioxide Anion Gap BUN Creatinine Estim Creat Clear Calc Estimated GFR Glucose POC Capillary Glucose 185 H 201 H 198 H Calcium 07/10/24 07/10/24 07/10/24 06:16 07:45 11:18 WBC 10.1 H RBC 3.84 L Hgb 9.0 L Hct 29.9 L MCV 77.9 L MCH 23.4 L MCHC 30.1 L RDW 17.7 H Plt Count 79 L MPV TNP Immature Gran % (Auto) 1.5 H Neut % (Auto) 70.3 Lymph % (Auto) 17.4 L [place] % (Auto) 9.6 H Eos % (Auto) 1.0 Baso % (Auto) 0.2 Lymph # (Auto) 1.76 [place] # (Auto) 1.0 H Eos # (Auto) 0.1 Baso # (Auto) 0.0 Abs Immat Gran (auto) 0.15 H Absolute Neuts (auto) 7.1 H Absolute Nucleated RBC 0.000 Nucleated RBC % 0.0 % Immature Plt Fraction 8.9 Sodium 139 Potassium 3.2 L Chloride 107 Carbon Dioxide 31 H Anion Gap 1 L BUN 24 H Creatinine 0.91 Estim Creat Clear Calc 65 Estimated GFR > 60 Glucose 209 H POC Capillary Glucose 225 H 251 H Calcium 9.1
--- NOTE | 2024-07-10 14:12 | ECG_ITS ---
Test Date: 2024-07-10 14:28:54 Measurements Intervals [place] Rate: 96 P: 0 OK: 0 QRS: 14 QRSD: 101 T: 25 QT: 308 QTc: 389 Interpretive Statements ATRIAL FIBRILLATION LOW QRS VOLTAGE IN EXTREMITY LEADS [QRS DEFLECTION < 0.5 mV IN LIMB LEADS] MODERATE ST DEPRESSION [0.05+ mV ST DEPRESSION] ABNORMAL ECG Electronically Signed On 07-11-2024 10:36:28 [employer] by Alejandro Villafana M.D.
--- NOTE | 2024-07-10 14:49 | PCSTNOTE ---
Attempted ST on this date; pt was essentially unarousable. She only briefly opened her eyes but did not respond to questions or simple commands.
[2024-07-10 15:48] LABS: Troponin I < 0.012 ng/mL (0.000-0.034)
--- NOTE | 2024-07-10 16:07 | WPDUROPN2 ---
Progress Note: A&P Assessment and Plan (1) Hydronephrosis due to obstruction of ureter: Code(s): N13.1 - Hydronephrosis with ureteral stricture, not elsewhere classified Status: Acute (2) Severe sepsis: Code(s): A41.9 - Sepsis, unspecified organism; R65.20 - Severe sepsis without septic shock Status: Acute (3) Hydronephrosis: Code(s): N13.30 - Unspecified hydronephrosis Status: Acute (4) Calculus of proximal left ureter: Code(s): N20.1 - Calculus of ureter Status: Acute Plan s/p cystoscopy, left retrograde pyelogram, left ureteral stent placement, indwelling Reid placement 07/05/[address] Khan for obstructing 9mm ureteral stone, severe sepsis, UTI. KUB today shows stent in proper position with retained stone. - agree with culture-directed antibiotics for E.Coli UTI bacteremia, transitioned to Augmentin - renal function stable, Cr 0.9; leukocytosis nearly resolved, afebrile - indwelling Reid removed this afternoon, limited physical mobility at baseline, OK for PureWick - encourage oral fluid intake - recommend scheduled bowel regimen, no BMs noted on I&O flow sheets Plan on definitive outpatient stone management with Dr. Mclaughlin when medically stable. Inpatient urology signing off. Please call with questions. Subjective Subjective Date/Time Seen: 07/10/24 16:07 Interval history: NAEO; downgraded out of ICU. Transitioned to Augmentin for E.Coli bacteremia/UTI. Mental status much improved. Pleasant, conversational. Exam Narrative: Chronically ill appearing. Alert and oriented to person, place, time, situation. Appears older than stated age. Indwelling Reid draining clear yellow urine. Abdomen largely obese, nontender. Objective Data Vital Signs Vital Signs: Vital Signs - 24 hr 07/09/24 20:00 07/09/24 22:00 07/09/24 22:42 Temperature 97.0 F L Pulse Rate 98 94 61 Respiratory Rate 16 20 20 Blood Pressure 164/79 H Pulse Oximetry 99 94 95 Oxygen Delivery Nasal Cannula Autopap Oxygen Flow Rate 1 Fraction of Inspired Oxygen 28 07/10/24 06:00 07/10/24 08:37 Temperature 97.4 F L Pulse Rate 97 Respiratory Rate 18 Blood Pressure 154/85 H Pulse Oximetry 95 95 Oxygen Delivery Autopap Oxygen Flow Rate 1 Fraction of Inspired Oxygen Intake/Output Intake/Output: Intake & Output 07/07/24 07/08/24 07/09/24 07/10/24 23:59 23:59 23:59 23:59 Intake Total 356 798 1013 1850 Output Total 1100 1050 1250 1450 Balance -800 -850 2430 400 Meds/Results Medications: Active Medications Generic Name Dose Route Start Last Admin Trade Name Freq PRN Reason Stop Dose Admin Acetaminophen 650 mg 07/05/24 12:59 Acetaminophen 325 Mg Tablet PO Q4H PRN Mild Pain (1-3) or Fever Acetaminophen 650 mg 07/06/24 04:59 07/06/24 21:09 Acetaminophen 650 Mg Suppository RECTAL 650 mg Q6H PRN Administration Mild Pain (1-3/ Fever IF NPO Amoxicillin/Clavulanate Potassium 1 tablet 07/10/24 21:30 Amoxicillin/Clavulanate K 875-125 Mg Tab PO 07/14/24 23:59 Q8HR [facility] Apixaban 5 mg 07/10/24 17:00 Apixaban 5 Mg Tablet PO BID CRYSTAL Aspirin 81 mg 07/11/24 09:00 Aspirin 81 Mg Enteric Tablet PO DAILY CRYSTAL Bisacodyl 10 mg 07/10/24 13:02 Bisacodyl 10 Mg Suppository RECTAL HS PRN constipation Dextrose 12.5 gm 07/05/24 13:02 Dextrose 50% 25 Gm/50 Ml Syringe IV PUSH PRN PRN Hypoglycemia Protocol Diltiazem HCl 120 mg 07/11/24 09:00 Diltiazem Hcl Cd 120 Mg Cap.24hr PO DAILY [facility] Docusate Sodium 100 mg 07/10/24 13:02 Docusate Sodium 100 Mg Capsule PO DAILY PRN constipation Escitalopram Oxalate 20 mg 07/11/24 09:00 Escitalopram Oxalate 10 Mg Tablet PO DAILY CRYSTAL Glucagon 1 mg 07/05/24 13:02 Glucagon For Inj 1 Mg Vial IM PRN PRN Hypoglycemia Protocol Glucose 15 gm 07/05/24 13:02 Glucose Oral Gel 15 Gm Of Glucse In 37.5 Gm Tube PO PRN PRN Hypoglycemia Protocol Dextrose 1,000 mls @ 100 mls/hr 07/05/24 13:02 Dextrose 5% 1,000 Ml IVPB PRN PRN Hypoglycemia Protocol Insulin Aspart 4 units 07/05/24 17:00 07/10/24 12:51 Insulin Aspart (*Bkc) 100 Units/Ml SUB-Q 4 units TIDWM [facility] Administration Insulin Aspart 3 - 6 units 07/06/24 08:00 07/10/24 12:52 Insulin Aspart (*Bkc) 100 Units/Ml SUB-Q 4 units TIDWM CRYSTAL Administration Protocol Insulin Aspart 1 - 3 units 07/05/24 21:00 07/09/24 20:33 Insulin Aspart (*Bkc) 100 Units/Ml SUB-Q Not Given HS [facility] Protocol Insulin Glargine 12 units 07/06/24 09:00 Insulin Glargine (*Bkc) 100 Units/Ml SUB-Q DAILY [facility] Levothyroxine Sodium 150 mcg 07/11/24 06:30 Levothyroxine Sodium 150 Mcg Tablet PO DAILY@0630 [facility] Magnesium Oxide 800 mg 07/11/24 09:00 Magnesium Oxide 400 Mg Tablet PO DAILY [facility] Metoprolol Succinate 25 mg 07/10/24 13:05 Metoprolol Succinate Ext Rel 25 Mg Tabcr PO DAILY [facility] Metoprolol Tartrate 5 mg 07/06/24 07:19 07/07/24 21:14 Metoprolol Tartrate Inj 5 Mg/5 Ml Vial IV PUSH 5 mg Q6H PRN Administration Tachycardia Ondansetron HCl 4 mg 07/05/24 12:59 Ondansetron Inj 4 Mg/2 Ml Vial IV PUSH Q4H PRN Nausea Ondansetron HCl 4 mg 07/10/24 13:02 Ondansetron Hcl Odt 4 Mg Tablet PO Q8H PRN nausea Pantoprazole Sodium 40 mg 07/07/24 09:00 07/10/24 08:36 Pantoprazole Sodium Iv 40 Mg Vial IV PUSH 40 mg QAM [facility] Administration Polymyxin/Trimethoprim Sulfate 1 drop 07/05/24 17:00 07/10/24 12:53 Polymyxin/Trimethoprim Ophth 10 Ml Drops EACH EYE Not Given Q4HWA [facility] Potassium Chloride 20 meq 07/08/24 15:00 07/10/24 08:37 Potassium Chloride 20 Meq Packet (For Liquid) PO 20 meq DAILY [facility] Administration Sodium Chloride 20 ml 07/05/24 20:47 Central Line Flush IV PUSH PRN PRN after blood draws Vitamin D 2,000 units 07/11/24 09:00 Cholecalciferol 1,000 Units Tablet PO DAILY CRYSTAL Radiology Results: ITS Impressions Head CT 07/05/24 14:26 IMPRESSION: Cerebral atherosclerosis and proximal vessel ischemic changes of the cerebral white matter No acute intracranial finding or significant change since 01/06/2018 Chest/Abdomen/Pelvis CTA 07/05/24 14:55 IMPRESSION: Left-sided hydroureteronephrosis secondary to a 9 mm stone in the proximal to mid left ureter. No pulmonary embolus. No aortic dissection. 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 Modified Barium Swallow 07/09/24 13:38 IMPRESSION: 1. Laryngeal penetration. 2. Please refer to the speech therapy report for recommendations. Chest X-Ray 07/10/24 14:58 IMPRESSION: Mild pulmonary vascular congestion, without focal infiltrate or effusion. Abdomen X-Ray 07/10/24 15:00 IMPRESSION: 14 mm oval-shaped calculus projecting over the pigtail portion of the proximal double-J stent, as detailed above. Labs Labs: Laboratory Results - last 24 hr 07/09/24 07/09/24 07/10/24 16:44 20:26 06:16 WBC 10.1 H RBC 3.84 L Hgb 9.0 L Hct 29.9 L MCV 77.9 L MCH 23.4 L MCHC 30.1 L RDW 17.7 H Plt Count 79 L MPV TNP Immature Gran % (Auto) 1.5 H Neut % (Auto) 70.3 Lymph % (Auto) 17.4 L [place] % (Auto) 9.6 H Eos % (Auto) 1.0 Baso % (Auto) 0.2 Lymph # (Auto) 1.76 [place] # (Auto) 1.0 H Eos # (Auto) 0.1 Baso # (Auto) 0.0 Abs Immat Gran (auto) 0.15 H Absolute Neuts (auto) 7.1 H Absolute Nucleated RBC 0.000 Nucleated RBC % 0.0 % Immature Plt Fraction 8.9 Sodium 139 Potassium 3.2 L Chloride 107 Carbon Dioxide 31 H Anion Gap 1 L BUN 24 H Creatinine 0.91 Estim Creat Clear Calc 65 Estimated GFR > 60 Glucose 209 H POC Capillary Glucose 201 H 198 H Calcium 9.1 Troponin I 07/10/24 07/10/24 07/10/24 07:45 11:18 15:22 WBC RBC Hgb Hct MCV MCH MCHC RDW Plt Count MPV Immature Gran % (Auto) Neut % (Auto) Lymph % (Auto) [place] % (Auto) Eos % (Auto) Baso % (Auto) Lymph # (Auto) [place] # (Auto) Eos # (Auto) Baso # (Auto) Abs Immat Gran (auto) Absolute Neuts (auto) Absolute Nucleated RBC Nucleated RBC % % Immature Plt Fraction Sodium Potassium Chloride Carbon Dioxide Anion Gap BUN Creatinine Estim Creat Clear Calc Estimated GFR Glucose POC Capillary Glucose 225 H 251 H Calcium Troponin I < 0.012
[2024-07-10 16:45] LABS: Glucose Point of Care 147 mg/dl (65-105)
[2024-07-10] MEDS: APIXABAN 5 MG TABLET PO (17:05)
[2024-07-10] MEDS: POTASSIUM CHLORIDE 20 MEQ ER TABLET 40 MEQ PO (17:05)
[2024-07-10] MEDS: FUROSEMIDE INJ 40 MG/4 ML VIAL IV PUSH (17:05)
[2024-07-10] MEDS: POLYMYXIN/TRIMETHOPRIM OPHTH 10 ML DROPS 1 DROP EACH EYE ×2 (17:06→21:14)
[2024-07-10] MEDS: METOPROLOL SUCCINATE EXT REL 25 MG TABCR PO (17:08)
[2024-07-10 19:41] LABS: Troponin I < 0.012 ng/mL (0.000-0.034)
[2024-07-10] MEDS: AMOXICILLIN/CLAVULANATE K 875-125 MG TAB 1 TABLET PO (21:13)
[2024-07-10] MEDS: MORPHINE SULFATE (*CRX) 2 MG/ML INJ IV PUSH (21:13)
[2024-07-10] MEDS: QUEtiapine FUMARATE 100 MG TABLET 300 MG PO (21:13)
[2024-07-10 21:28] LABS: Glucose Point of Care 212 mg/dl (65-105)
[2024-07-11] VITALS (7 sets, daily range): BP systolic 132–165; BP diastolic 78–98; PULSE 83–101; RESP 18–20; TEMP 36–36.4; O2SAT 92–99
[2024-07-11 00:13] LABS: Troponin I < 0.012 ng/mL (0.000-0.034)
[2024-07-11] MEDS: POLYMYXIN/TRIMETHOPRIM OPHTH 10 ML DROPS 1 DROP EACH EYE ×5 (05:41→21:20)
[2024-07-11] MEDS: AMOXICILLIN/CLAVULANATE K 875-125 MG TAB 1 TABLET PO ×3 (05:41→21:20)
[2024-07-11] MEDS: LEVOTHYROXINE SODIUM 150 MCG TABLET PO (05:41)
[2024-07-11 07:38] LABS: Basophils Percent Auto 0.3 % (0.2-1.2); Eosinophils Absolute Auto 0.2 K/mm3 (0-0.3); Eosinophils Percent Auto 1.9 % (0-4.4); Hematocrit 31.3 % (37.0-47.0); Hemoglobin 9.6 g/dL (12.0-15.0); Immature Granulocyte Absolute 0.25 K/mm3 (0.00-0.031); Immature Granulocyte Percent A 2.4 % (0-0.5); Immature Platelet Fraction Pct 7.5 % (0.9-11.2); Lymphocytes Absolute Auto 2.23 K/mm3 (0.9-3.2); Lymphocytes Percent Auto 21.7 % (18.3-44.2); Mean Corpuscular HGB Conc 30.7 g/dl (32-36); Mean Corpuscular Hemoglobin 23.7 pg (26-34); Mean Corpuscular Volume 77.3 fl (80-100); Mean Platelet Volume 11.5 fl (7.4-10.4); Monocytes Absolute Auto 0.9 K/mm3 (0.1-0.6); Monocytes Percent Auto 8.8 % (2.6-8.5); Neutrophils Absolute Auto 6.7 K/mm3 (1.3-6.7); Neutrophils Percent Auto 64.9 % (45.5-73.1); Platelet Count Result 122 k/mm3 (150-375); Red Blood Count 4.05 M/mm3 (4.2-5.4); Red Cell Distribution Width 17.6 % (11.5-14.5); White Blood Count 10.3 K/mm3 (4.5-10.0)
[2024-07-11 07:53] LABS: Glucose Point of Care 164 mg/dl (65-105)
[2024-07-11 07:57] LABS: Anion Gap 0 mmol/L (4-12); Blood Urea Nitrogen 18 mg/dL (7-17); Calcium 9.1 mg/dL (8.4-10.2); Carbon Dioxide 35 mmol/L (22-30); Chloride 100 mmol/L (98-107); Estimated CRCL calculation 68 ml/min; Estimated Glomerular Filt Rate > 60; Glucose 159 mg/dL (65-110); Potassium 3.6 mmol/L (3.4-5.0); Sodium 135 mmol/L (137-145)
[2024-07-11] MEDS: PANTOPRAZOLE SODIUM IV 40 MG VIAL IV PUSH (10:27)
--- NOTE | 2024-07-11 10:43 | PCSTNOTE ---
attempted ST on this date; pt very somnolent; not able to participate.
[2024-07-11 11:19] LABS: Glucose Point of Care 174 mg/dl (65-105)
--- NOTE | 2024-07-11 11:26 | PC.NURSE ---
Patient sleeping on initial assessment. This RN notes patient somnolence. Patient very briefly aroused to verbal and physical stimuli. Patient is able to identify her name, and place, but falls back asleep quickly and does not answer further questions. Patient is unable to safely swallow for breakfast due to drowsiness. Discussed with MD, Dr. Maldonado, who states to hold AM dose of Seroquel, Buspar, and scheduled Novolog doses. Will reassess and update MD with any further changes.
[2024-07-11] MEDS: APIXABAN 5 MG TABLET PO ×2 (14:37→21:20)
[2024-07-11] MEDS: dilTIAZem HCL CD 120 MG CAP.24HR PO (14:38)
[2024-07-11] MEDS: METOPROLOL SUCCINATE EXT REL 25 MG TABCR PO (14:40)
[2024-07-11] MEDS: ASPIRIN 81 MG ENTERIC TABLET PO (14:40)
[2024-07-11] MEDS: ESCITALOPRAM OXALATE 10 MG TABLET 20 MG PO (14:43)
[2024-07-11] MEDS: CHOLECALCIFEROL 1,000 UNITS TABLET 2000 UNITS PO (14:44)
[2024-07-11] MEDS: MAGNESIUM OXIDE 400 MG TABLET 800 MG PO (14:44)
--- NOTE | 2024-07-11 15:24 | P.PNIM_ITS ---
Progress Note: A&P Assessment and Plan (1) Severe sepsis: Code(s): A41.9 - Sepsis, unspecified organism; R65.20 - Severe sepsis without septic shock Status: Acute (2) Acute pyelonephritis: Code(s): N10 - Acute pyelonephritis Status: Acute (3) Hydronephrosis due to obstruction of ureter: Code(s): N13.1 - Hydronephrosis with ureteral stricture, not elsewhere classified Status: Acute (4) Atrial fibrillation: Qualifiers: Atrial fibrillation type: unspecified chronic Qualified Code(s): I48.20 - Chronic atrial fibrillation, unspecified Code(s): I48.91 - Unspecified atrial fibrillation Status: Chronic (5) AMS (altered mental status): Code(s): R41.82 - Altered mental status, unspecified Status: Acute (6) Type 2 diabetes mellitus: Code(s): E11.9 - Type 2 diabetes mellitus without complications Status: Chronic Plan # Severe sepsis: Delete 07/05: Patient presented from intermediate, with lethargy, generalized weakness, altered mental status, was found to have left ureteral stone with hydronephrosis, status post cystoscopy, retrograde pyelogram with stent placement to left proximal ureter. CTA Ch/A/P showing left-sided hydroureteronephrosis secondary to a 9 mm stone in the proximal to mid left ureter. No PE or aortic dissection. 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 Urology consulted and patient underwent cystoscopy, left retrograde pyelogram, left ureteral stent placement 07/05/24. Purulent drainage was seen once the stent was placed. Patient was given adequate amount of IV fluids, Lactic acid was initially elevated which has normalized -patient has not required any pressors at this time as blood pressures have been stable MRSA nasal swab negative. BCx 07/05: e coli Patient was on linezolid and Zosyn, (07/05); discontinue linezolid and started vancomycin 07/06 Creatinine trending down. WBC normal. Old Cx reviewed with most showing E coli and Klebsiella that are nair-sensitive. She did have ESBL EColi in a UCx on 07/28/19. changed Zosyn to Meropenem, stop Vancomycin repeat BCX 07/08 now afebrile. Remove RIJ central line 07/09: Blood culture grows E coli, pansensitive, repeat blood culture 07/08 no growth so far Continue meropenem, patient is allergic to cephalosporin however tolerating IV ceftriaxone Switched to Augmentin # Acute pyelonephritis: Delete Acute pyelonephritis related to left ureteral stone and hydronephrosis As above # Hydronephrosis due to obstruction of ureter: Urology following, status post cystoscopy, retrograde pyelogram, left proximal stent placement on 07/05/2024 # Atrial fibrillation: Patient does have a history of AFib on apixaban at home. 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 Resume oral metoprolol and Eliquis # AMS (altered mental status): Altered mental status mostly likely secondary to severe sepsis, UTI, pyelonephritis -07/05: CT brain was negative for any acute intracranial abnormality Ammonia <9. TSH normal. Monitor mental status which is improving slowly Seroquel was restarted likely having hypoactive delirium # Type 2 diabetes mellitus: Accu-Cheks and sliding scale insulin Holding Lantus since patient is not taking p.o. diet # Thrombocytopenia - plt count dropped suspecting related to consumption from sepsis. She does have borderline enlarged spleen. Follow. Slowly improving # DVT prophylaxis: SCDs, no chemoprophylaxis due to thrombocytopenia resume Eliquis # Stress ulcer prophylaxis: Protonix # Code Status: Do not resuscitate Subjective Date/time seen: 07/11/24 15:24 Interval history: Patient more sleepy today. Only answers minimally. Review of Systems Review of Systems: All systems reviewed & are unremarkable except as noted in HPI and below Exam Narrative: GENERAL: Ill-appearing in no acute distress. Well-nourished. Frail looking - EYES: EOMI. Anicteric. - HENT: Dry mucous membranes. - LUNGS: Clear to auscultation bilateral ly, no wheezing, rhonchi, or rales. - CARDIOVASCULAR: Regular rate and rhyth m. No murmur. No JVD. - ABDOMEN: Soft, non-tender and non-dist ended. No palpable masses. - EXTREMITIES: No edema. Peripheral puls es 2+. Non-tender. - NEUROLOGIC: Moving all extremities - PSYCHIATRIC: Alert awake bit somnolen t slow to respond - SKIN: No rashes or lesions. Warm. - LYMPH: No cervical lymphadenopathy. Objective Data Vital Signs Vital Signs: Vital Signs - 24 hr 07/10/24 16:00 07/10/24 17:08 07/10/24 20:00 Temperature 98.5 F Pulse Rate 83 88 Respiratory Rate 16 Blood Pressure 152/81 H Pulse Oximetry 93 Oxygen Delivery Room Air Oxygen Flow Rate 07/10/24 20:15 07/10/24 22:30 07/10/24 23:15 Temperature 97.2 F L 97.2 F L Pulse Rate 94 94 90 Respiratory Rate 20 16 14 Blood Pressure 210/122 H 147/110 H Pulse Oximetry 95 95 95 Oxygen Delivery Autopap Oxygen Flow Rate 07/11/24 05:55 07/11/24 08:00 07/11/24 13:00 Temperature 97.5 F L 96.8 F L Pulse Rate 92 101 H 91 Respiratory Rate 20 18 Blood Pressure 165/98 H 142/78 H Pulse Oximetry 95 92 99 Oxygen Delivery Nasal Cannula Oxygen Flow Rate 1 07/11/24 14:00 07/11/24 14:40 Temperature 97.0 F L Pulse Rate 99 100 Respiratory Rate 18 Blood Pressure 151/90 H Pulse Oximetry 97 Oxygen Delivery Oxygen Flow Rate Intake/Output Intake/Output: Intake & Output 07/08/24 07/09/24 07/10/24 07/11/24 23:59 23:59 23:59 23:59 Intake Total 200 3680 1850 650 Output Total 1050 1250 2000 2150 Balance -850 2430 -150 -1500 Meds/Results Medications: Active Medications Generic Name Dose Route Start Last Admin Trade Name Freq PRN Reason Stop Dose Admin Acetaminophen 650 mg 07/05/24 12:59 Acetaminophen 325 Mg Tablet PO Q4H PRN Mild Pain (1-3) or Fever Acetaminophen 650 mg 07/06/24 04:59 07/06/24 21:09 Acetaminophen 650 Mg Suppository RECTAL 650 mg Q6H PRN Administration Mild Pain (1-3/ Fever IF NPO Amoxicillin/Clavulanate Potassium 1 tablet 07/10/24 21:30 07/11/24 14:42 Amoxicillin/Clavulanate K 875-125 Mg Tab PO 07/14/24 23:59 1 tablet Q8HR CRYSTAL Administration Apixaban 5 mg 07/10/24 17:00 07/11/24 14:37 Apixaban 5 Mg Tablet PO 5 mg BID CRYSTAL Administration Aspirin 81 mg 07/11/24 09:00 07/11/24 14:40 Aspirin 81 Mg Enteric Tablet PO 81 mg DAILY [facility] Administration Bisacodyl 10 mg 07/10/24 13:02 Bisacodyl 10 Mg Suppository RECTAL HS PRN constipation Buspirone HCl 30 mg 07/11/24 09:00 07/11/24 10:12 Buspirone Hcl 10 Mg Tablet PO Not Given BID [facility] Dextrose 12.5 gm 07/05/24 13:02 Dextrose 50% 25 Gm/50 Ml Syringe IV PUSH PRN PRN Hypoglycemia Protocol Diltiazem HCl 120 mg 07/11/24 09:00 07/11/24 14:38 Diltiazem Hcl Cd 120 Mg Cap.24hr PO 120 mg DAILY CRYSTAL Administration Docusate Sodium 100 mg 07/10/24 13:02 Docusate Sodium 100 Mg Capsule PO DAILY PRN constipation Escitalopram Oxalate 20 mg 07/11/24 09:00 07/11/24 14:43 Escitalopram Oxalate 10 Mg Tablet PO 20 mg DAILY CRYSTAL Administration Glucagon 1 mg 07/05/24 13:02 Glucagon For Inj 1 Mg Vial IM PRN PRN Hypoglycemia Protocol Glucose 15 gm 07/05/24 13:02 Glucose Oral Gel 15 Gm Of Glucse In 37.5 Gm Tube PO PRN PRN Hypoglycemia Protocol Dextrose 1,000 mls @ 100 mls/hr 07/05/24 13:02 Dextrose 5% 1,000 Ml IVPB PRN PRN Hypoglycemia Protocol Insulin Aspart 4 units 07/05/24 17:00 07/11/24 12:53 Insulin Aspart (*Bkc) 100 Units/Ml SUB-Q Not Given TIDWM [facility] Insulin Aspart 3 - 6 units 07/06/24 08:00 07/11/24 11:21 Insulin Aspart (*Bkc) 100 Units/Ml SUB-Q Not Given TIDWM [facility] Protocol Insulin Aspart 1 - 3 units 07/05/24 21:00 07/10/24 21:12 Insulin Aspart (*Bkc) 100 Units/Ml SUB-Q 1 units HS CRYSTAL Administration Protocol Insulin Glargine 12 units 07/06/24 09:00 Insulin Glargine (*Bkc) 100 Units/Ml SUB-Q DAILY [facility] Levothyroxine Sodium 150 mcg 07/11/24 06:30 07/11/24 05:41 Levothyroxine Sodium 150 Mcg Tablet PO 150 mcg DAILY@0630 CRYSTAL Administration Magnesium Oxide 800 mg 07/11/24 09:00 07/11/24 14:44 Magnesium Oxide 400 Mg Tablet PO 800 mg DAILY [facility] Administration Metoprolol Succinate 25 mg 07/10/24 13:05 07/11/24 14:40 Metoprolol Succinate Ext Rel 25 Mg Tabcr PO 25 mg DAILY [facility]ST[facility] Administration Metoprolol Tartrate 5 mg 07/06/24 07:19 07/07/24 21:14 Metoprolol Tartrate Inj 5 Mg/5 Ml Vial IV PUSH 5 mg Q6H PRN Administration Tachycardia Morphine Sulfate 2 mg 07/10/24 20:45 07/10/24 21:13 Morphine Sulfate (*Crx) 2 Mg/Ml Inj IV PUSH 2 mg Q4H PRN Administration Pain Rated 7-10 Pantoprazole Sodium 40 mg 07/07/24 09:00 07/11/24 10:27 Pantoprazole Sodium Iv 40 Mg Vial IV PUSH 40 mg QAM CRYSTAL Administration Polymyxin/Trimethoprim Sulfate 1 drop 07/05/24 17:00 07/11/24 12:54 Polymyxin/Trimethoprim Ophth 10 Ml Drops EACH EYE 1 drop Q4HWA CRYSTAL Administration Potassium Chloride 20 meq 07/08/24 15:00 07/11/24 12:59 Potassium Chloride 20 Meq Packet (For Liquid) PO Not Given DAILY [facility] Quetiapine Fumarate 300 mg 07/10/24 21:00 07/10/24 21:13 Quetiapine Fumarate 100 Mg Tablet PO 300 mg QHS CRYSTAL Administration Quetiapine Fumarate 50 mg 07/11/24 09:00 07/11/24 10:13 Quetiapine Fumarate 25 Mg Tablet PO Not Given DAILY [facility] Sodium Chloride 20 ml 07/05/24 20:47 Central Line Flush IV PUSH PRN PRN after blood draws Vitamin D 2,000 units 07/11/24 09:00 07/11/24 14:44 Cholecalciferol 1,000 Units Tablet PO 2,000 units DAILY CRYSTAL Administration Radiology Results: ITS Impressions Head CT 07/05/24 14:26 IMPRESSION: Cerebral atherosclerosis and proximal vessel ischemic changes of the cerebral white matter No acute intracranial finding or significant change since 01/06/2018 Chest/Abdomen/Pelvis CTA 07/05/24 14:55 IMPRESSION: Left-sided hydroureteronephrosis secondary to a 9 mm stone in the proximal to mid left ureter. No pulmonary embolus. No aortic dissection. 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 Modified Barium Swallow 07/09/24 13:38 IMPRESSION: 1. Laryngeal penetration. 2. Please refer to the speech therapy report for recommendations. Chest X-Ray 07/10/24 14:58 IMPRESSION: Mild pulmonary vascular congestion, without focal infiltrate or effusion. Abdomen X-Ray 07/10/24 15:00 IMPRESSION: 14 mm oval-shaped calculus projecting over the pigtail portion of the proximal double-J stent, as detailed above. Labs Labs: Laboratory Results - last 24 hr 07/10/24 07/10/24 07/10/24 15:22 16:41 19:03 WBC RBC Hgb Hct MCV MCH MCHC RDW Plt Count MPV Immature Gran % (Auto) Neut % (Auto) Lymph % (Auto) [place] % (Auto) Eos % (Auto) Baso % (Auto) Lymph # (Auto) [place] # (Auto) Eos # (Auto) Baso # (Auto) Abs Immat Gran (auto) Absolute Neuts (auto) Absolute Nucleated RBC Nucleated RBC % % Immature Plt Fraction Sodium Potassium Chloride Carbon Dioxide Anion Gap BUN Creatinine Estim Creat Clear Calc Estimated GFR Glucose POC Capillary Glucose 147 H Calcium Troponin I < 0.012 < 0.012 07/10/24 07/10/24 07/11/24 20:18 22:16 07:27 WBC 10.3 H RBC 4.05 L Hgb 9.6 L Hct 31.3 L MCV 77.3 L MCH 23.7 L MCHC 30.7 L RDW 17.6 H Plt Count 122 L D MPV 11.5 H Immature Gran % (Auto) 2.4 H Neut % (Auto) 64.9 Lymph % (Auto) 21.7 [place] % (Auto) 8.8 H Eos % (Auto) 1.9 Baso % (Auto) 0.3 Lymph # (Auto) 2.23 [place] # (Auto) 0.9 H Eos # (Auto) 0.2 Baso # (Auto) 0.0 Abs Immat Gran (auto) 0.25 H Absolute Neuts (auto) 6.7 Absolute Nucleated RBC 0.000 Nucleated RBC % 0.0 % Immature Plt Fraction 7.5 Sodium 135 L Potassium 3.6 Chloride 100 Carbon Dioxide 35 H Anion Gap 0 L BUN 18 H Creatinine 0.83 Estim Creat Clear Calc 68 Estimated GFR > 60 Glucose 159 H POC Capillary Glucose 212 H Calcium 9.1 Troponin I < 0.012 07/11/24 07/11/24 07:51 11:17 WBC RBC Hgb Hct MCV MCH MCHC RDW Plt Count MPV Immature Gran % (Auto) Neut % (Auto) Lymph % (Auto) [place] % (Auto) Eos % (Auto) Baso % (Auto) Lymph # (Auto) [place] # (Auto) Eos # (Auto) Baso # (Auto) Abs Immat Gran (auto) Absolute Neuts (auto) Absolute Nucleated RBC Nucleated RBC % % Immature Plt Fraction Sodium Potassium Chloride Carbon Dioxide Anion Gap BUN Creatinine Estim Creat Clear Calc Estimated GFR Glucose POC Capillary Glucose 164 H 174 H Calcium Troponin I
[2024-07-11 16:18] LABS: Glucose Point of Care 181 mg/dl (65-105)
[2024-07-11] MEDS: INSULIN ASPART (*BKC) 100 UNITS/ML SUB-Q (17:08)
[2024-07-11 21:49] LABS: Glucose Point of Care 141 mg/dl (65-105)
[2024-07-12 05:00] VITALS: BP 154/102; PULSE 76; RESP 20; TEMP 35.9; O2SAT 100
[2024-07-12] MEDS: LEVOTHYROXINE SODIUM 150 MCG TABLET PO (05:41)
[2024-07-12] MEDS: AMOXICILLIN/CLAVULANATE K 875-125 MG TAB 1 TABLET PO ×3 (05:41→21:08)
[2024-07-12] MEDS: POLYMYXIN/TRIMETHOPRIM OPHTH 10 ML DROPS 1 DROP EACH EYE ×5 (05:41→21:08)
--- OUTSIDE RECORDS SUMMARY | 2024-07-12 05:41 | XMS_ITS | Encounter Summary ---
Author Organization [facility] Address [address] [place] [address] Care Team Providers Care Protective Signal Superintendent Name Role Phone John Gomez Primary Care Provider [phone] Reason for Visit * Reason Comments Arthritis Encounter Details Date Type Department Care Team (Late st Contact Info) Description 10/25/2021 10:40 AM CDT Office Visit [facility] [address] [place] [address], [place] [address] Stephy Fitzpatrick MD [address] [place] [address] [place] [address] Other psoriasis (Primary Dx); Class 3 severe obesity with body mass index (BMI) of 50.0 to 59.9 in adult, unspecified obesity type, unspecified whether serious comorbidity present (HCC); Chronic low back pain, unspecified back pain laterality, unspecified whether sciatica present; Psoriatic arthritis (HCC) Social History Tobacco Use Types Packs/Day Years Used Date Smoking Tobacco: Never Smokeless Tobacco: Never Alcohol Use Standard Drinks/Week Comments No 0 (1 standard drink = 0.6 oz pur e alcohol) Sex and Gender Information Value Date Recorded Sex Assigned at Not on file Gender Identity Not on file Sexual Orientation Not on file documented as of this encounter Last Filed Vital Signs Vital Sign Reading Time Taken Comments Blood Pressure 122/80 10/25/2021 11:09 AM CDT Pulse 77 10/25/2021 11:09 AM CDT Temperature 36.3 ??C (97.3 ??F) 10/25/2021 1 1:09 AM CDT Respiratory Rate - - Oxygen Saturation 94% 10/25/2021 11: 09 AM CDT Inhaled Oxygen Concentration - - Weight 147.5 kg (325 lb 3.2 oz) 022 11:09 AM CDT Height 170.2 cm (5' 7 ) 10/25/2021 11:0 9 AM CDT Body Mass Index 50.93 10/25/2021 11:09 AM CDT documented in this encounter Progress Notes * Stephy Fitzpatrick MD - 10/25/2021 10:56 AM CDT [facility] Followup Clinic Visit Referring Physician: Provider Unknown No address on file PCP: John Gomez, DO Chief Complaint Patient presents with ??? follow up for joints pain ICD-10-CM 1. Other psoriasis L40.8 2. Class 3 severe obesity with body mass index (BMI) of 50.0 to 59.9 in adult, unspecified obesity type, unspecified whether serious comorbidity present E66.01 Z68.43 3. Chronic low back pain, unspecified back pain laterality, unspecified whether sciatica present M54.50 G89.29 4. Psoriatic arthritis L40.50 HPI: 65 year old female with psoriasis and possible psoriatic arthritis(hands pain and prior good response to MTX with symptoms worsening after d/c) on Secukinumab subcut. still has extensive psoriasis . lower back, hips, hands,shoulders, elbows and wrists hurt. has morning stiffness lasting for unclear duration. poor night sleep. labs from 10/18 in pt's phone reviewed, unremarkable CBC, CMP. Previous meds used: MTX: did not help skin psoriasis so was stopped, was helping joints pain Humira: ineffective ROS: General: -fever, HEENT: -dry eyes, -dry mouth,-oral/nasal ulcers CV: -chest pain, Resp: -cough, -SOB, GI: -abd pain : -hematuria Skin: +rash,-Raynaud, Past Medical History: Diagnosis Date ??? Aortic aneurysm ??? Atrial fibrillation ??? Diabetes ??? Hypertension ??? ALIVIA (obstructive sleep apnea) Social History Tobacco Use ??? Smoking status: Never Smoker ??? Smokeless tobacco: Never Used Vaping Use ??? Vaping Use: Never used Substance Use Topics ??? Alcohol use: No ??? Drug use: Never Review of Family History Problem Relation Name Age of Onset ??? Cancer - Skin, Non Melanoma Sister ??? COPD - Chronic Obstructive Pulmonary Disease Mother Status: ??? Aneurysm, Brain Mother ??? Aneurysm, Brain Father Status: ??? CAD (Coronary Artery Disease) Father ??? Bipolar Disorder Son Status: Alive ??? None Known Daughter Status: Alive ??? Cancer - Breast Neg Hx ??? CVA Neg Hx ??? Hemophilia Neg Hx ??? Cancer Neg Hx ??? Allergy (Severe) Neg Hx ??? Rashes/Skin Problems Neg Hx ??? Eczema Neg Hx ??? Psoriasis Neg Hx ??? Cancer - Skin, Melanoma Neg Hx Current Outpatient Medications Medication Sig Dispense Refill ??? ADMELOG SOLOSTAR 100 UNIT/ML pen Inject 9 Units subcutaneously 3 times daily ??? albuterol HFA (PROVENTIL; VENTOLIN; PROAIR) 108 (90 Base) MCG/ACT inhaler Inhale 1 puff by mouth every 4 hours as needed ??? Basaglar KwikPen (BASAGLAR) pen Inject 80 Units subcutaneously 2 times daily ??? BASAGLAR KWIKPEN (BASAGLAR) pen 80 Units. ??? blood glucose (FREESTYLE LITE STRIPS) test strip ??? busPIRone (BUSPAR) 15 MG tablet 15 mg TID. ??? Calcium 500-125 MG-UNIT Take 1 tablet by mouth DAILY. (Patient not taking: No sig reported) ??? dilTIAZem ER 24hr (TIAZAC) 120 MG capsule Take 120 mg by mouth once daily ??? escitalopram (LEXAPRO) 10 MG tablet 10 mg. ??? escitalopram (LEXAPRO) 20 MG tablet Take 20 mg by mouth DAILY. ??? Fluocinonide 0.1 % Apply to psoriasis on arms, legs and torso twice daily. 30 days supply. (Patient taking differently: Apply to psoriasis on arms, legs and torso twice daily. 30 days supply.) 120 g 2 ??? FREESTYLE LANCETS MISC ??? hydrocortisone (HYTONE) 2.5 % cream Apply to face twice daily. 30 days supply. (Patient not taking: Reported on 10/25/2021) 30 g 1 ??? insulin pen needle (NOVOFINE) 32G X 6 MM MISC ??? levothyroxine (SYNTHROID) 112 MCG tablet ??? lisinopril (PRINIVIL;ZESTRIL) 5 MG tablet Take 5 mg by mouth once daily ??? lisinopril (PRINIVIL;ZESTRIL) 5 MG tablet lisinopril 5 mg tablet TAKE 1 TABLET BY MOUTH ONCE DAILY ??? Magnesium Aspartate 65 MG Take 64 mg by mouth BID. (Patient not taking: Reported on 10/25/2021) ??? metFORMIN (GLUCOPHAGE) 1000 MG tablet 1,000 mg BID. ??? metoprolol succinate XL 24hr (TOPROL XL) 25 MG tablet Take 25 mg by mouth once daily ??? metoprolol succinate XL 24hr (TOPROL XL) 50 MG tablet 50 mg DAILY. ??? ondansetron (ZOFRAN) 8 MG tablet Take 8 mg by mouth q8h PRN (Nausea). 15 tablet 0 ??? pravastatin (PRAVACHOL) 40 MG tablet Take 40 mg by mouth once daily ??? QUEtiapine (SEROQUEL) 100 MG tablet 150 mg DAILY. ??? rosuvastatin (CRESTOR) 20 MG tablet Take 20 mg by mouth once daily ??? Secukinumab, 300 MG Dose, (COSENTYX SENSOREADY, 300 MG,) 150 MG/ML SOAJ Inject 300 mg subcutaneously every 28 days Reasons: Plaque Psoriasis, Psoriasis associated with Arthritis 2 mL 3 ??? traMADol (ULTRAM) 50 MG tablet Take 50 mg by mouth every 6 hours as needed pain ??? Vitamins/Minerals TABS 1 tablet DAILY. (Patient not taking: No sig reported) ??? warfarin (COUMADIN) 2 MG tablet warfarin 2 mg tablet TAKE ONE TABLET BY MOUTH ONCE DAILY AT BEDTIME No current facility-administered medications for this visit. Cefuroxime, Citalopram, Levofloxacin, Lidocaine, Sulfa drugs, Cefuroxime axetil, Ciprofloxacin, Codeine, Erythromycin, Sulfamethoxazole w-trimethoprim, Theophylline, and Theophyllines Physical Exam: BP 122/80 Pulse 77 Temp 97.3 ??F (36.3 ??C) (Temporal) Ht 5' 7 (1.702 m) Wt 325 lb 3.2 oz (147.5 kg) SpO2 94% BMI 50.93 kg/m2 General: normal, appears stated age Skin: No rashes or lesions HEENT: Normocephalic, without obvious abnormality, no oral or nasal ulcers, Lymphatic: No cervical, supraclavicular adenopathy Chest/Lungs: normal respiratory effort CVS not tachycardic Musculoskeletal Exam: mild ttp MCPs, no overt synovitis or dactylitis on exam. no enthesitis Labs: Reviewed Assessment/ Plan: Polyarthrlagia: low back, hips and knees pain look more mechanical in nature as evident on prior x rays. hands pain could be inflammatory in nature as she reported prior worsening symptoms after stopping MTX although exam unremarkable for specific inflammatory arthritis signs. discussed in detail difference between OA and Psoriaic arthritis. for her low back/hip pain will place referral to PT. for hand joints, initially wanted to start MTX but she is on Coumadin which can interact with MTX so not started. Other options to consider are IL 12/23 inhibitors like Stelara or IL 23 inhibitor like Skyrizi. She said that her insurance changing from 29 of October. she has follow up with Derm later this week and whichever agent they choose should work for her hand joints as well. At this point mainproblem seems active psoriasis, most of her pain symptoms are OA related. Morbid Obesity: discussed in detail the mechanical nature of pain of knees, hips and low back and that she need to loose weight. encouraged physical activity. Nutrition referral placed. Orders Placed This Encounter ??? AMB REFERRAL TO NUTRITION Standing Status: Future Standing Expiration Date: 10/25/2022 Referral Priority: Routine Referral Type: Consultation Referral Reason: Specialty Services Required Number of Visits Requested: 1 ??? AMB REFERRAL TO PHYSICAL THERAPY Standing Status: Future Standing Expiration Date: 10/25/2022 Referral Priority: Routine Referral Type: PT/OT/ST Referral Reason: Specialty Services Required Number of Visits Requested: 1 RTC in 4 months documented in this encounter Plan of Treatment Not on file documented as of this encounter Visit Diagnoses Diagnosis Other psoriasis- Primary Class 3 severe obesity with body mass index (BMI) of 50.0 to 59.9 in adult, unspecified obesity type, unspecified whether serious comorbidity present (HCC) Chronic low back pain, unspecified back pain laterality, unspecified whether sciatica present Psoriatic arthritis (HCC) Psoriatic arthropathy documented in this encounter Care Teams Protective Signal Superintendent Relationship Specialty Start Date End Date John Gomez DO [address] [place] [address] PCP - General 04/11/21 documented as of this encounter
--- OUTSIDE RECORDS SUMMARY | 2024-07-12 05:41 | XMS_ITS | Encounter Summary ---
Author Organization [facility] Address [address] [place] [address] Care Team Providers Care Acquisition Cost Estimator Name Role Phone John Gomez Cassia RODRIGUEZ Primary Care Provider [phone] Reason for Visit * Reason Onset Date Comments Question 01/31/2022 Encounter Details Date Type Department Care Team (Late st Contact Info) Description 01/31/2022 Telephone [facility] [address] [place] [address], [place] [address] Pastora Roy PA [address] [place] [address] [address] [place] [address] Question Social History Tobacco Use Types Packs/Day Years Used Date Smoking Tobacco: Never Smokeless Tobacco: Never Alcohol Use Standard Drinks/Week Comments No 0 (1 standard drink = 0.6 oz pur e alcohol) Sex and Gender Information Value Date Recorded Sex Assigned at Not on file Gender Identity Not on file Sexual Orientation Not on file documented as of this encounter Miscellaneous Notes * Addendum Note - Allyn Olmstead - 02/22/2022 12:50 PM CDTAddended by: ALLYN OLMSTEAD on: 02/22/2022 12:50 PM Modules accepted: Orders * Telephone Encounter - Allyn Olmstead - 02/22/2022 12:46 PM CDT Supervising physician added to prescription and resent Allyn Olmstead Biologics Coordinator * Telephone Encounter - Allyn Olmstead - 02/01/2022 9:01 AM CDT Pt approval for NPAF ended 07/15/2021, pt was approved with [place] until 08/2022, pt has new coverage and PA and appeal has to be denied before patient can apply for patient assistance. Pt did not inform our office of new coverage so that I could submit PA. However a PA has been submitted via [employer]: [id number], pt sent [employer] message with details mentioned. rx sent to [facility] Allyn Olmstead Biologics Coordinator * Telephone Encounter - Pastora Roy PA - 01/31/2022 2:07 PM CDT Patient called back and left a message saying she is out of cosentyx and [employer] told her we need to send renewal forms We initially planned to change cosentyx but she wanted to see her Rheum first . However, that appointment got moved due to weather . She needs refills of cosentyx . She has an appointment with Me in Mar . She left the forms at there last visit in May and it looks to be approved until Aug 2021 but will send message to our biologics coordinator She may just need a refill which I have ordered and pended in this note * Telephone Encounter - Pastora Roy PA - 01/31/2022 8:25 AM CDT Patient called and left a message about cosentyx but did not leave details I called back and left her a message documented in this encounter Plan of Treatment Not on file documented as of this encounter Visit Diagnoses Diagnosis Other psoriasis documented in this encounter Care Teams Acquisition Cost Estimator Relationship Specialty Start Date End Date John Gomez DO [address] [place] [id number] PCP - General 04/11/21 documented as of this encounter
--- OUTSIDE RECORDS SUMMARY | 2024-07-12 05:41 | XMS_ITS | Encounter Summary ---
Author Organization [facility] Address [address] [place] [address] Care Team Providers Care Rail Track Layer Name Role Phone John Gomez DO Primary Care Provider [phone] Reason for Visit * Reason Comments Refill Request Encounter Details Date Type Department Care Team (Late st Contact Info) Description 11/10/2021 Refill [facility] [address] [place] [address], [place] [address] Pastora Roy PA [address] [place] [address] [address] [place] [address] Refill Request Social History Tobacco Use Types Packs/Day Years Used Date Smoking Tobacco: Never Smokeless Tobacco: Never Alcohol Use Standard Drinks/Week Comments No 0 (1 standard drink = 0.6 oz pur e alcohol) Sex and Gender Information Value Date Recorded Sex Assigned at Not on file Gender Identity Not on file Sexual Orientation Not on file documented as of this encounter Miscellaneous Notes * Telephone Encounter - Allyn Olmstead - 11/10/2021 1:04 PM CDT ALESSIA 06/12/2021 NOV 01/05/2022 lat neg quant gold 05/31/2021 rx sent until MAY Allyn Olmstead Biologics Coordinator documented in this encounter Plan of Treatment Not on file documented as of this encounter Visit Diagnoses Diagnosis Other psoriasis documented in this encounter Care Teams Rail Track Layer Relationship Specialty Start Date End Date John Gomez DO [address] [place] [address] PCP - General 04/11/21 documented as of this encounter
--- OUTSIDE RECORDS SUMMARY | 2024-07-12 05:41 | XMS_ITS | Encounter Summary ---
Author Organization [facility] Address [address] [place] [address] Care Team Providers Care Instrument Specialist Name Role Phone PatriciaWildere Cassia DO Primary Care Provider [phone] Reason for Visit * Reason Comments Refill Request Encounter Details Date Type Department Care Team (Late st Contact Info) Description 05/30/2022 Refill [facility] [address] [place] [address], [place] [address] Pastora Roy PA [address] [place] [address] [address] [place] [address] Refill Request Social History Tobacco [...] * Telephone Encounter - Allyn Olmstead - 05/30/2022 9:57 AM CST ALESSIA 10/25/2021 NOV 06/26/2022, last neg quant gold 05/31/2021, [facility] message sent to have labs repeated and lab sent to [facility]. Allyn Olmstead Biologics Coordinator T AND VEGETABLE CLASSER documented in this encounter Plan of Treatment Scheduled Orders Name Type Priority Associated Diagnoses Orde r Schedule [facility] TB-GOLD Lab Routine Other moth exterminator (current) drug therapy Ordered: 05/30/2022 documented as of this encounter Procedures Procedure Name Priority Date/Time Associated Diagnosis Comments CBC W AUTO DIFFERENTIAL Routine 06/19/2022 3:03 PM FRUIT AND VEGETABLE CLASSER Other moth exterminator (current) drug therapy COMPREHENSIVE METABOLIC PANEL Routine 06/19/2022 3:03 PM FRUIT AND VEGETABLE CLASSER Other moth exterminator (current) drug therapy documented in this encounter Results * (ABNORMAL) COMPREHENSIVE METABOLIC PANEL (06/19/2022 3:03 PM FRUIT AND VEGETABLE CLASSER) Glucose 102(H) 65 - 99 mg/dL [facility] Comment: ? Fasting reference interval For someone without known diabetes, a glucose value between 100 and 125 mg/dL is consistent with prediabetes and should be confirmed with a follow-up test. BUN 14 7 - 25 mg/dL [facility] Creatinine 0.88 0.50 - 1.05 mg/dL [facility] eGFR by Cystatin C 73 > OR = 60 mL/min/1. 73m2 [facility] Comment: The eGFR is based on the CKD-EPI 2020 equation. To calculate the new eGFR from a previous Creatinine or Cystatin C result, go to https://www.kidney.org/professionals/ kdoqi/gfr%5Fcalculator BUN/Creatinine Ratio NOT APPLICABLE 6 - 22 (calc) [facility] Sodium 135 135 - 146 mmol/L [facility] Potassium 4.3 3.5 - 5.3 mmol/L [facility] Chloride 99 98 - 110 mmol/L [facility] CO2 31 20 - 32 mmol/L [facility] Calcium 9.8 8.6 - 10.4 mg/dL [facility] Protein Total 6.6 6.1 - 8.1 g/dL [facility] Albumin 3.4(L) 3.6 - 5.1 g/dL [facility] Globulin Total 3.2 1.9 - 3.7 g/dL (calc) [facility] Albumin/Globuli n Ratio 1.1 1.0 - 2.5 (calc) [facility] Bilirubin Total 0.5 0.2 - 1.2 mg/dL [facility] Alkaline Phosphatase 92 37 - 153 U/L [facility] AST 15 10 - 35 U/L [facility] ALT 14 6 - 29 U/L [facility] Comment: Test Performed at: [facility] [facility] [place] [address] [place] ??[id number] ISABELLA RODRIGUEZ DO,MPH Blood BLOOD SPECIMEN / Unknown 06/19/2022 3:03 PM FRUIT AND VEGETABLE CLASSER 06/19/2022 3:03 PM FRUIT AND VEGETABLE CLASSER [facility] - CHEMISTRY ORDE RABLES Performing Organization Address [facility] Co de Phone Number [facility] [address] [place] [address] * CBC WITH DIFFERENTIAL (06/19/2022 3:03 PM FRUIT AND VEGETABLE CLASSER) White Blood Cell Count 8.5 3.8 - 10.8 Thousand/u L [facility] RBC 4.99 3.80 - 5.10 Million/uL [facility] Hemoglobin 14.3 11.7 - 15.5 g/dL [facility] Hematocrit 42.9 35.0 - 45.0 % [facility] MCV 86.0 80.0 - 100.0 fL [facility] MCH 28.7 27.0 - 33.0 pg [facility] MCHC 33.3 32.0 - 36.0 g/dL [facility] RDW 14.5 11.0 - 15.0 % [facility] Platelet Count 221 140 - 400 Thousand/u L [facility] MPV 10.3 7.5 - 12.5 fL [facility] Neutrophil Absolute 5993 1500 - 7800 cells/uL [facility] Lymphocytes Absolute 1785 850 - 3900 cells/uL [facility] Absolute Monocytes 519 200 - 950 cells/uL [facility] Eosinophils Absolute 162 15 - 500 cells/uL [facility] Basophils Absolute 43 0 - 200 cells/uL [facility] Granulocytes % 70.5 % [facility] Lymphocytes % 21.0 % [facility] Monocytes % 6.1 % [facility] Eosinophils % 1.9 % [facility] Basophils % 0.5 % [facility] Comment: Test Performed at: [employer] [facility] ??[phone] ISABELLA RODRIGUEZ DO,MPH Blood BLOOD SPECIMEN / Unknown 06/19/2022 3:03 PM FRUIT AND VEGETABLE CLASSER 06/19/2022 3:03 PM FRUIT AND VEGETABLE CLASSER [facility] - HEMATOLOGY ORD ERABLES Performing Organization Address [facility] Co de Phone Number [facility] [phone] [place] [address] documented in this encounter Visit Diagnoses Diagnosis Other moth exterminator (current) drug therapy- Primary Other psoriasis documented in this encounter Care Teams Instrument Specialist Relationship Specialty Start Date End Date John Gomez DO [address] [place] [address] PCP - General 04/11/21 documented as of this encounter
--- OUTSIDE RECORDS SUMMARY | 2024-07-12 05:41 | XMS_ITS | Data Portability ---
Author Organization ID - [facility] OFFICE Address [address] [place] [address] Care Team Providers Care Political Cartoonist Name Role Phone KULWINDER BENSON Primary Care Provider Assessment Encounter Date Assessment Date Assessment LastModified by Organization Details LastModified Time 11/01/2021 11/01/2021 Discussed with patient findings, diagnosis, and prognosis. Discussed evaluation and treatment options including risks and benefits with patient, and patient expressed understanding. The following interventions were recommended: heart healthy low-fat, low-sodium diet, continue regular exercise, maintain appropriate weight, continue current medications, and medical follow-up as noted. [email or web address] Not available 11/01/2021 12:15:18 01/03/2022 01/03/2022 Discussed with patient findings, diagnosis, and prognosis. Discussed evaluation and treatment options including risks and benefits with patient, and patient expressed understanding. The following interventions were recommended: heart healthy low-fat, low-sodium diet, avoid strenuous exercise pending completion of cardiovascular evaluation,mainta in appropriate weight, continue current medications, and medical follow-up as noted. Not available 01/03/2022 18:03:43 02/14/2022 02/14/2022 Discussed with patient findings, diagnosis, and prognosis. Discussed evaluation and treatment options including risks and benefits with patient, and patient expressed understanding. The following interventions were recommended: heart healthy low-fat, low-sodium diet, avoid strenuous exercise pending completion of cardiovascular evaluation,mainta in appropriate weight, continue current medications, and medical follow-up as noted. Not available 02/14/2022 16:02:12 07/18/2022 07/18/2022 Discussed with patient findings, diagnosis, and prognosis. Discussed evaluation and treatment options including risks and benefits with patient, and patient expressed understanding. The following interventions were recommended: heart healthy low-fat, low-sodium diet, continue regular exercise,maintain appropriate weight, continue current medications, and medical follow-up as noted. Not available 07/18/2022 15:58:18 11/14/2022 11/14/2022 Discussed with patient findings, diagnosis, and prognosis. Discussed evaluation and treatment options including risks and benefits with patient, and patient expressed understanding. The following interventions were recommended: heart healthy low-fat, low-sodium diet, continue regular exercise,maintain appropriate weight, continue current medications, and medical follow-up as noted. [email or web address] Not available 11/14/2022 14:46:24 Plan of Treatment Reminders Order Date Submit Date Provider Last Modified By Organization Details Last Modified Time Details Appointments None recorded. Lab None recorded. Referral None recorded. Procedures None recorded. Surgeries None recorded. Imaging None recorded. Medication Orders icosapent ethyl 1 gram capsule [address] [place], [address], 3 14:59:33 furosemide 20 mg tablet [address] [place], [address], 2 16:27:22 potassium chloride ER 10 mEq tablet,exte nded release [address] [place], [address], 3 15:56:08 furosemide 40 mg tablet [address] [place], [address], 3 15:11:23 aspirin 81 mg tablet,brooklyn yed release 2022 023 [email or web address] [facility] [address] [facility], [place], [address], 3 11:32:36 pravastatin 40 mg tablet 2022 023 [facility] [address] , [place], [address], 15:16:09 Patient TargetsNo targets recorded. Patient Instructions Encounter Date Encounter Id Patient Instructions Last Modified By Organization Details Last Modified Time 11/01/2021 [id number] learning about type 2 diabetes [email or web address] Not available 11/01/2021 12:27:21 type 2 diabetes: care instructions [email or web address] Not available 11/01/2021 12:27:21 high cholesterol : care instructions [email or web address] Not available 11/01/2021 12:27:20 learning about low-fat eating [email or web address] Not available 11/01/2021 12:27:21 chronic obstructive pulmonary disease (COPD): care instructions [email or web address] Not available 11/01/2021 12:27:21 learning about copd and how to prevent lung infections [email or web address] Not available 11/01/2021 12:27:21 When You Want to Lose Weight: Care Instructions [email or web address] Not available 11/01/2021 12:27:21 sleep apnea: car e instructions [email or web address] Not available 11/01/2021 12:27:20 atrial fibrillation: care instructions [email or web address] Not available 11/01/2021 12:27:20 hypothyroidism: care instructions [email or web address] Not available 11/01/2021 12:27:21 01/03/2022 [id number] learning about type 2 diabetes [email or web address] Not available 01/03/2022 18:04:53 type 2 diabetes: care instructions [email or web address] Not available 01/03/2022 18:04:53 high cholesterol : care instructions [email or web address] Not available 01/03/2022 18:04:53 learning about low-fat eating [email or web address] Not available 01/03/2022 18:04:53 chronic obstructive pulmonary disease (COPD): care instructions Not available 01/03/2022 18:04:53 learning about copd and how to prevent lung infections [email or web address] Not available 01/03/2022 18:04:53 When You Want to Lose Weight: Care Instructions [email or web address] Not available 01/03/2022 18:04:53 leg and ankle edema: care instructions [email or web address] Not available 01/03/2022 18:04:53 sleep apnea: car e instructions [email or web address] Not available 01/03/2022 18:04:53 atrial fibrillation: care instructions [email or web address] Not available 01/03/2022 18:04:52 hypothyroidism: care instructions [email or web address] Not available 01/03/2022 18:04:53 02/14/2022 [id number] learning about type 2 diabetes [email or web address] Not available 02/14/2022 16:38:13 type 2 diabetes: care instructions [email or web address] Not available 02/14/2022 16:38:13 high cholesterol : care instructions [email or web address] Not available 02/14/2022 16:38:13 learning about low-fat eating [email or web address] Not available 02/14/2022 16:38:13 chronic obstructive pulmonary disease (COPD): care instructions [email or web address] Not available 02/14/2022 16:38:14 learning about copd and how to prevent lung infections [email or web address] Not available 02/14/2022 16:38:13 When You Want to Lose Weight: Care Instructions [email or web address] Not available 02/14/2022 16:38:13 leg and ankle edema: care instructions [email or web address] Not available 02/14/2022 16:38:13 sleep apnea: car e instructions [email or web address] Not available 02/14/2022 16:38:13 atrial fibrillation: care instructions [email or web address] Not available 02/14/2022 16:38:14 hypothyroidism: care instructions Not available 02/14/2022 16:38:13 07/18/2022 [id number] learning about type 2 diabetes [email or web address] Not available 07/18/2022 16:12:12 type 2 diabetes: care instructions [email or web address] Not available 07/18/2022 16:12:12 high cholesterol : care instructions [email or web address] Not available 07/18/2022 16:12:12 learning about low-fat eating [email or web address] Not available 07/18/2022 16:12:12 chronic obstructive pulmonary disease (COPD): care instructions [email or web address] Not available 07/18/2022 16:12:12 learning about copd and how to prevent lung infections [email or web address] Not available 07/18/2022 16:12:12 When You Want to Lose Weight: Care Instructions [email or web address] Not available 07/18/2022 16:12:12 leg and ankle edema: care instructions Not available 07/18/2022 16:12:12 sleep apnea: car e instructions [email or web address] Not available 07/18/2022 16:12:12 atrial fibrillation: care instructions [email or web address] Not available 07/18/2022 16:12:12 hypothyroidism: care instructions [email or web address] Not available 07/18/2022 16:12:12 11/14/2022 [id number] learning about type 2 diabetes Not available 11/14/2022 15:16:03 type 2 diabetes: care instructions [email or web address] Not available 11/14/2022 15:16:03 high cholesterol : care instructions [email or web address] Not available 11/14/2022 15:16:03 learning about low-fat eating [email or web address] Not available 11/14/2022 15:16:03 chronic obstructive pulmonary disease (COPD): care instructions [email or web address] Not available 11/14/2022 15:16:03 learning about copd and how to prevent lung infections [email or web address] Not available 11/14/2022 15:16:03 When You Want to Lose Weight: Care Instructions [email or web address] Not available 11/14/2022 15:16:04 leg and ankle edema: care instructions [email or web address] Not available 11/14/2022 15:16:03 sleep apnea: car e instructions [email or web address] Not available 11/14/2022 15:16:03 atrial fibrillation: care instructions Not available 11/14/2022 15:16:03 hypothyroidism: care instructions [email or web address] Not available 11/14/2022 15:16:04 Reason for Referral None Reported. Results Created Date Observation Date Name Description Value Unit Range Abnormal Flag Note LastModifiedBy Organization Detail LastModifiedTime 12/19/19 22 12/06/2021 CT, angio gram, chest , w/ contr ast No observ ation record ed. Not Available 2021 11:41:59 01/05/20 22 01/03/2022 elect rocar diogr am No observ ation record ed. Not Available 2021 10:23:29 01/25/20 22 01/19/2022 US, doppl er, venou s No observ ation record ed. Not Available 2021 11:40:39 02/12/20 22 02/07/2022 US, echoc ardio gram No observ ation record ed. [facility] [address] [place], [address], 02/13/2022 14:57:12 02/14/20 22 02/07/2022 US, echoc ardio gram No observ ation record ed. Not Available 2021 11:31:55 02/16/20 22 02/14/2022 elect rocar diogr am No observ ation record ed. Not Available 2021 10:06:06 07/19/19 23 07/18/2022 elect rocar diogr am No observ ation record ed. Not Available 2022 13:51:11 11/16/19 23 11/14/2022 elect rocar diogr am No observ ation record ed. Not Available 2022 10:06:47 12/30/19 24 10/15/2023 CT, angio gram, chest , w/ contr ast No observ ation record ed. Not Available 2023 15:56:14 Result Notes None recorded. Problems Name Problem SNOMED Code Status Onset Date Resolution Date Notes Provider Name and Address Organization Details Recorded Time Coronary arterioscle rosis 22261415 Active 2020 Cardiac cath Mar 2021 25-50% shira saenz lve [place], [place] - [facility] 1 18:35:37 Heart failure with normal ejection fraction 070743184 Active 2021 Franco Lopes [place] - [facility] 2 14:54:17 Edema of lower extremity 722465184 Active 2021 Franco Lopes [place], [place] - [facility] 2 18:04:31 Atrial fibrillatio n 07404868 Active 2016 Sourav Diaz [place] - [facility] 7 14:07:42 Benign essential hypertensio n 5072964 Active 2016 Sourav [place] [facility] 7 14:07:54 Aortic aneurysm 41047173 Active 2016 Sourav [place] [facility] 7 14:08:06 Hypothyroid ism 79787890 Active 2016 Sourav [place] [facility] 7 14:08:21 Type 2 diabetes mellitus 72486308 Active 2016 Sourav [place] [facility] 7 14:08:37 Chronic obstructive pulmonary disease 30204167 Active 2016 Sourav [place] [facility] 7 14:08:53 Obstructive sleep apnea syndrome 64864492 Active 2016 Sourav [place] [facility] 7 14:09:07 Obesity 180354750 Active 2016 Sourav [place] [facility] 7 14:09:43 Bipolar disorder 08222121 Active 2016 Sourav [place] [facility] 7 14:09:53 Psoriatic arthritis 001236197 Active 2016 Sourav [place] [facility] 7 14:10:13 Asthma 079285108 Active 2016 Gina [place] - [facility] 7 11:48:21 Degeneratio n of interverteb ral disc 61881999 Active 2016 Gina [place] [facility] 7 11:48:48 Depressive disorder 64829019 Active 2016 Gina sinha, [place] - [facility] 7 11:48:59 [facility]8972530 [facility] 7 11:51:25 Edema 097929708 [facility] 7 11:51:31 Rectal hemorrhage 22614620 [facility] 7 11:52:02 Congestive heart failure 96355032 Active 2016 [facility] 7 13:45:14 Urine culture - Proteus 776910987 Active 2016 Franco Lopes [facility] 7 13:19:17 Hypercalcem ia 81244694 Active 2017 Franco Lopes [facility] 8 11:49:10 Pain in right lower limb 060030539 Active 2017 Franco Lopes [facility] 8 16:22:02 Hyperlipide javed 34459328 Active 2017 Franco Lopes [facility] 8 16:55:36 Dyspnea on exertion 88190108 Active 2020 Franco Lopes [facility] 1 15:58:43 Problem Notes None recorded. Procedures Surgical History Date Name Laterality Status Provider Name and Address Organization Details Recorded Time Unlisted px foot/toes completed [facility] 06/03/2017 11:50:[address] [facility] 06/03/2017 11:50:[address] [facility] 06/03/2017 11:50:[address] [facility] 06/03/2017 11:50:57 Imaging Results Imaging Date Name Status LastModified by Organization Details LastModified Time 12/06/2021 CT, angiogram, chest, w/ contrast completed Information not available 12/18/2021 11:41:59 01/03/2022 electrocardiogram completed Informa tion not available 01/04/2022 10:23:29 01/19/2022 US, doppler, venous completed Infor mation not available 01/24/2022 11:40:39 02/07/2022 US, echocardiogram completed [facility] [address], [place], [address], 02/13/2022 14:57:12 02/07/2022 US, echocardiogram completed Inform ation not available 02/13/2022 11:31:55 02/14/2022 electrocardiogram completed Informa tion not available 02/15/2022 10:06:06 07/18/2022 electrocardiogram completed Informa tion not available 07/19/2022 13:51:11 11/14/2022 electrocardiogram completed Informa tion not available 11/15/2022 10:06:47 10/15/2023 CT, angiogram, chest, w/ contrast completed Information not available 12/30/2023 15:56:14 Procedure Notes None recorded. Medical Equipment None Reported. Allergies Allergen ID Allergen Name Allergen Category Reaction Reaction Severity Criticality Documentation Date Start Date Code Code System Note Provider Name and Address Organization Details Recorded Time 5532 cefuroxim e Not available Not available Not available Not available 05/31/2017 2194 RxNorm Benjamin Mesto null, [place] - [facility] 7 14:14:23 5533 ciproflox acin medicatio n Not available Not available Not available 05/31/2017 2551 RxNorm Benjamin Mesto [place] - [facility] 7 14:14:34 5534 citalopra m medicatio n Not available Not available Not available 05/31/2017 2556 RxNorm Benjamin Mesto [place] - [facility] 7 14:14:54 5535 codeine medicatio n Not available Not available Not available 05/31/2017 2670 RxNorm Benjamin Mesto [place], [place] - [facility] 7 14:15:06 5536 erythromy ricci medicatio n Not available Not available Not available 05/31/2017 4053 RxNorm Sourav Diaz [facility], [facility] 7 14:15:15 5537 levofloxa ricci medicatio n Not available Not available Not available 05/31/2017 89448 RxNorm Sourav Diaz [facility], [facility] 7 14:15:25 5538 Substance with sulfonami de structure and antibacte rial mechanism of action (substanc e) medicatio n Not available Not available Not available 05/31/2017 25001 8003 SNOMED Sourav Diaz [facility], [facility] 7 14:15:33 5539 theophyll ine medicatio n Not available Not available Not available 05/31/2017 59585 RxNorm Sourav Diaz [facility] 7 14:16:31 Medications Name Sig Start Date Stop Date Status Note LastModified by Organization Details LastModified Time furosemid e 40 mg tablet Take 1 tablet every day by oral route. 11/14 completed Not Available Not Available Not Available metolazon e 2.5 mg tablet Take 1 tablet every day by oral route. 06/17 completed pt states that she has dc this med, making her nauseous . Not Available Not Available Not Available atorvasta tin 40 mg tablet Take 1 tablet every day by oral route at bedtime. 01/24 completed Not Available Not Available Not Available clotrimaz ole 10 mg baljeet 06/03 completed Not Available Not Available Not Available metformin 500 mg tablet TAKE 1 TABLET BY MOUTH BEFORE MORNING MEAL AND BEFORE EVENING MEAL 07/18 completed Not Available Not Available Not Available Euthyrox 175 mcg tablet TAKE 1 TABLET BY MOUTH ONCE DAILY active Not Available Not Available No t Available levothyro xine 137 mcg tablet 01/24 completed pt not taking 01/25/20 Not Available Not Available Not Available prednison e 10 mg tablet TAKE 1 TABLET BY MOUTH THREE TIMES PER DAY FOR 3 DAYS, THEN TAKE 1 TABLET BY MOUTH BY MOUTH TWICE DAILY FOR 2 DAYS AND THEN TAKE ONE TABLET BY MOUTH ONCE DAILY FOR 1 DAY active Not Available Not Available No t Available doxycycli ne hyclate 100 mg capsule TAKE 1 CAPSULE BY MOUTH ONCE DAILY 11/01 completed not taking 11/30/20 sp Not Available Not Available Not Available atorvasta tin 20 mg tablet Take 1 tablet every day by oral route at bedtime. 10/01 completed Not Available Not Available Not Available quetiapin e 300 mg tablet TAKE 1 TABLET BY MOUTH ONCE DAILY AT BEDTIME FOR 30 DAYS active Not Available Not Available No t Available trazodone 50 mg tablet TAKE 1 TABLET BY MOUTH ONCE DAILY AT BEDTIME NEEDED active Not Available Not Available No t Available pravastat in 40 mg tablet TAKE 1 TABLET BY MOUTH ONCE DAILY AT BEDTIME active Not Available Not Available No t Available ibuprofen 800 mg tablet prn 06/21 completed Not Available Not Available Not Available metoprolo l succinate ER 50 mg tablet,ex tended release 24 hr 1 tab qhs 12/02 completed Not Available Not Available Not Available ondansetr on HCl 8 mg tablet 06/03 completed Not Available Not Available Not Available FreeAlly Jassoets 28 gauge 09/12 completed Not Available Not Available Not Available phenazopy ridine 200 mg tablet not taking med 07/13/2009/12 completed Not Available Not Available Not Available ondansetr on HCl 4 mg tablet PRN 09/12 completed Not Available Not Available Not Available alendrona te 70 mg tablet TAKE 1 TABLET BY MOUTH ONCE A WEEK IN THE MORNING WITH A FULL GLASS OF WATER, 30 MINUTES BEFORE THE FIRST MEAL, BEVERAGE OR MEDICATI ON OF THE DAY. REMAIN UPRIGHT active Not Available Not Available No t Available potassium chloride ER 10 mEq tablet,ex tended release Take 1 tablet every day by oral route. 07/18 completed Not Available Not Available Not Available peg-elect rolyte solution 420 gram oral solution TAKE 240 ML BY MOUTH EVERY 10 MINUTES UNTIL FECAL EFFLUENT IS CLEAR; DO NOT EXCEED A TOTAL VOLUME OF 4000 ML 09/12 completed Not Available Not Available Not Available aspirin 81 mg tablet,de layed release Take 1 tablet(s ) every day by oral route. 2023 active Not Available Not Available Not Avai lable tramadol 50 mg tablet TAKE 1 TABLET BY MOUTH EVERY 6 HOURS NEEDED FOR PAIN active Not Available Not Available No t Available quetiapin e 100 mg tablet TAKE 1 & 1/2 (ONE & ONE-HALF ) TABLETS BY MOUTH ONCE DAILY AT BEDTIME active Not Available Not Available No t Available warfarin 4 mg tablet Take 1 tablet every day by oral route. 06/03 completed Not Available Not Available Not Available warfarin 3 mg tablet TAKE 1 TABLET BY MOUTH every other day as directed active Not Available Not Available No t Available hydromorp mehrdad 2 mg tablet 09/12 completed pt not taking 01/25/20 Not Available Not Available Not Available magnesium oxide 400 mg (241.3 mg magnesium ) tablet TAKE 2 TABLETS BY MOUTH ONCE DAILY active Not Available Not Available No t Available methotrex ate sodium 2.5 mg tablet 6 tab q weekly 06/21 completed Not Available Not Available Not Available gentamici n 0.3 % eye drops INSTILL 1 DROP INTO LEFT EYE EVERY 4 HOURS FOR 5 DAYS 11/01 completed pt no longer takes 1 nj Not Available Not Available Not Available trazodone 100 mg tablet TAKE 1 TABLET BY MOUTH ONCE DAILY AT BEDTIME FOR 30 DAYS active Not Available Not Available No t Available Humalog U-100 Insulin 100 unit/mL subcutane ous solution 10 Iu qd 12/08 completed Not Available Not Available Not Available diltiazem ER 120 mg capsule,2 4 hr,extend ed release Take 1 capsule by mouth once daily 2022 active Not Available Not Available Not Avai lable OneTouch Ultra Test strips USE 1 STRIP TO CHECK GLUCOSE THREE TIMES DAILY active Not Available Not Available No t Available baclofen 10 mg tablet TAKE 1 TABLET BY MOUTH THREE TIMES DAILY 11/01 completed pt is no longer taking 08/30/21 sa Not Available Not Available Not Available doxycycli ne monohydra te 100 mg capsule 06/03 completed Not Available Not Available Not Available erythromy ricci 5 mg/gram (0.5 %) eye ointment APPLY SMALL AMOUNT INTO EACH EYE ONCE DAILY IN THE EVENING DIRECTED 11/01 completed pt no longer takes 04/04/20 21 nj Not Available Not Available Not Available buspirone 30 mg tablet TAKE 1 TABLET BY MOUTH TWICE DAILY FOR 30 DAYS active Not Available Not Available No t Available metformin 1,000 mg tablet 1 tab bid 12/02 completed Not Available Not Available Not Available levothyro xine 125 mcg tablet qd 12/08 completed Not Available Not Available Not Available nitrofura ntoin macrocrys keshia 100 mg capsule 06/03 completed Not Available Not Available Not Available tobramyci n 0.3 % eye drops INSTILL 1 DROP INTO EACH EYE EVERY 4 HOURS FOR 7 DAYS 11/01 completed pt no longer takes 1 nj Not Available Not Available Not Available triamcino lone acetonide 0.1 % topical ointment APPLY OINTMENT TOPICALL Y TO SCALY PATCHES FROM NECK DOWN ONCE TO TWICE DAILY 11/01 completed pt no longer takes 1 nj Not Available Not Available Not Available warfarin 2 mg tablet Take 1 tablet by mouth once daily 2022 active Not Available Not Available Not Avai lable polymyxin B sulfate 10,000 unit-trim ethoprim 1 mg/mL eye drops active Not Available Not Available No t Available warfarin 5 mg tablet 1 tab qd 06/03 completed Not Available Not Available Not Available levothyro xine 150 mcg tablet TAKE 1 TABLET BY MOUTH ONCE DAILY active Not Available Not Available No t Available insulin syringe U-100 with needle 0.3 mL 31 gauge x 11/13 completed Not Available Not Available Not Available folic acid 1 mg tablet 1 tab qd 06/17 completed Not Available Not Available Not Available hydrocort isone 2.5 % topical cream APPLY CREAM TO AFFECTED AREA TWICE DAILY TO FACE active Not Available Not Available No t Available lisinopri l 5 mg tablet Take 1 tablet by mouth once daily 2022 active Not Available Not Available Not Avai lable digoxin 125 mcg (0.125 mg) tablet TAKE 1 TABLET BY MOUTH ONCE DAILY 01/24 completed Not Available Not Available Not Available furosemid e 20 mg tablet TAKE 1 TABLET BY MOUTH ONCE DAILY 02/14 completed Not Available Not Available Not Available metoprolo l succinate ER 25 mg tablet,ex tended release 24 hr TAKE 1 TABLET BY MOUTH ONCE DAILY active Not Available Not Available No t Available warfarin 1 mg tablet TAKE 1 TABLET BY MOUTH ONCE DAILY active Not Available Not Available No t Available albuterol sulfate HFA 90 mcg/actua tion aerosol inhaler INHALE 1 PUFF BY MOUTH EVERY 4 HOURS NEEDED FOR SHORTNES S OF BREATH OR WHEEZING active Not Available Not Available No t Available Vitamin D2 1,250 mcg (50,000 unit) capsule 1 tab q week 06/21 completed Patient to stop Vit D. [id number] yahaira to call [place] [id number]. Not Available Not Available Not Available hydrocort isone 2.5 % topical ointment APPLY OINTMENT TO FACE ONCE DAILY 11/01 completed pt no longer takes nj Not Available Not Available Not Available fluticaso ne propionat e 50 mcg/actua tion nasal spray,courtney pension q12h 09/12 completed Not Available Not Available Not Available metformin ER 500 mg tablet,ex tended release 24 hr bid 09/12 completed Not Available Not Available Not Available Blood Pressure Kit 2020 active Not Available Not Available Not Avai lable risperido ne 1 mg tablet TAKE 1 TABLET BY MOUTH TWICE DAILY FOR 30 DAYS active Not Available Not Available No t Available levothyro xine 112 mcg tablet 1 tab qd 09/18 completed Not Available Not Available Not Available amoxicill in 875 mg-potass ium clavulana te 125 mg tablet Take 1 tablet every 12 hours by oral route for 7 days. 01/24 completed complete d 01/25/20 Not Available Not Available Not Available amoxicill in 500 mg-potass ium clavulana te 125 mg tablet TAKE 1 TABLET BY MOUTH EVERY 12 HOURS FOR 7 DAYS active Not Available Not Available No t Available buspirone 15 mg tablet TAKE 1 TABLET BY MOUTH THREE TIMES DAILY active Not Available Not Available No t Available escitalop ainsley 10 mg tablet TAKE 1 TABLET BY MOUTH ONCE DAILY active Not Available Not Available No t Available escitalop ainsley 20 mg tablet TAKE 1 TABLET BY MOUTH ONCE DAILY FOR 30 DAYS active Not Available Not Available No t Available rosuvasta tin 10 mg tablet TAKE 1 TABLET BY MOUTH ONCE DAILY 11/30 completed not taking 11/30/20 sp Not Available Not Available Not Available rosuvasta tin 20 mg tablet TAKE 1 TABLET BY MOUTH ONCE DAILY 11/30 completed not taking 11/30/20 sp Not Available Not Available Not Available nitrofura ntoin monohydra te/macroc rystals 100 mg capsule TAKE 1 CAPSULE BY MOUTH EVERY 12 HOURS FOR 7 DAYS MUST ADMINIST ER WITH A MEAL OR FOOD active pt is no longer taking 11/14/22 Not Available Not Available Not Available DILT-XR 120 mg capsule, extended release TAKE 1 BY MOUTH ONCE DAILY active Not Available Not Available No t Available fluocinon adan 0.1 % topical cream APPLY TOPICALL Y TO PSORIASI S ON ARMS, LEGS AND TORSO TWICE DAILY active Not Available Not Available No t Available Vitamin D3 41378 1 q week for 8 weeks 09/12 completed med d/c Not Available Not Available Not Available quetiapin e 50 mg tablet TAKE 1 TABLET BY MOUTH ONCE DAILY IN THE MORNING FOR 30 DAYS active Not Available Not Available No t Available Enbrel SureClick 50 mg/mL (1 mL) subcutane ous pen injector 06/03 completed Not Available Not Available Not Available Lantus Solostar U-100 Insulin 100 unit/mL (3 mL) subcutane ous pen INJECT 31 UNITS SUBCUTAN EOUSLY TWICE DAILY active Not Available Not Available No t Available Lite Touch Insulin Pen [place] 31 gauge x 09/13 completed Not Available Not Available Not Available Humalog KwikPen (U-100) Insulin 100 unit/mL subcutane ous INJECT SUBCUTAN EOUSLY PER SLIDING SCALE DOSE DIRECTED , MAX OF 18 UNITS PER DAY active Not Available Not Available No t Available magnesium 64 mg (magnesiu m chloride) tablet,de layed release Take 1 tablet twice a day by oral route as directed . 07/10 completed Not Available Not Available Not Available Livalo 2 mg tablet Take 1 tablet every day by oral route at bedtime. 12/02 completed Not Available Not Available Not Available Thera-M 9 mg iron-400 mcg tablet 1 tab qd 06/21 completed Not Available Not Available Not Available icosapent ethyl 1 gram capsule TAKE 2 CAPSULES BY MOUTH TWICE DAILY 11/14 completed 08/28/22 will finish up and start fish oil/JL/e k Not Available Not Available Not Available BD Insulin Syringe Ultra-Fin e 1 mL 31 gauge x 11/13 completed Not Available Not Available Not Available Cosentyx Pen 300 mg/2 Pens (150 mg/mL) subcutane ous INJECT 2 PENS SUBCUTAN EOUSLY ONCE EVERY 28 DAYS active Not Available Not Available No t Available Repatha SureClick 140 mg/mL subcutane ous pen injector INJECT 1 ML SUBCUTAN EOUSLY EVERY TWO WEEKS 2022 active Not Available Not Available Not Avai lable Fish Oil 1,000 mg (120 mg-180 mg) capsule Take 2 capsules twice a day by oral route. 11/14 completed 08/28/22 will start after icosapen t ethyl/ek Not Available Not Available Not Available TRUEplus Pen Needle 31 gauge x 5/16 USE DIRECTED FOR BLOOD SUGAR active Not Available Not Available No t Available BD Ultra-Fin e Micro Pen Needle 32 gauge x 1/4 09/12 completed Not Available Not Available Not Available Ozempic 0.25 mg or 0.5 mg (2 mg/1.5 mL) subcutane ous pen injector INJECT 1/4 (ONE-FOU RTH) MG SUBCUTAN EOUSLY ONCE A WEEK FOR 4 WEEKS, THEN INJECT 0.5 MG WEEKLY active Not Available Not Available No t Available Admelog SoloStar U-100 Insulin 09/12 completed Not Available Not Available Not Available OneTouch Ultra Blue Test Strip USE 1 STRIP TO CHECK GLUCOSE THREE TIMES DAILY active Not Available Not Available No t Available Fluarix Quad 3801-7830 (PF) 60 mcg (15 mcg x 4)/0.5 mL IM syringe 09/12 completed Not Available Not Available Not Available BD Di 2nd Gen Pen Needle 32 gauge x 5/32 USE DIRECTED FOR BLOOD SUGAR active Not Available Not Available No t Available OneTouch Ultra2 Meter active Not Available Not Available Not Available OneTouch Delica Plus Lancet 33 gauge 09/12 completed Not Available Not Available Not Available Vitals Date Recorded Body height Body mass index (BMI) Body weight Heart rate Oxygen saturation Oxygen saturation in Arterial blood by Pulse oximetry Systolic blood pressure Diastolic blood pressure Provider Name and Address Organization Details Last Updated DateTime 2 172.72 cm 49 kg/m2 077318. 74 g 88 /min 94 % 94 % 142 mm[Hg] 82 mm[Hg] Joycelyn Robbins [facility] 2 11:28:43 Date Recorded Body height Body mass index (BMI) Body weight Heart rate Oxygen saturation Oxygen saturation in Arterial blood by Pulse oximetry Systolic blood pressure Diastolic blood pressure Provider Name and Address Organization Details Last Updated DateTime 2 172.72 cm 50.9 kg/m2 307222. 44 g 95 /min 94 % 94 % 148 mm[Hg] 82 mm[Hg] Cali Pandey [facility] 2 15:50:44 Date Recorded Body height Body mass index (BMI) Body weight Heart rate Respiratory rate Oxygen saturation Oxygen saturation in Arterial blood by Pulse oximetry Inhaled oxygen flow rate Systolic blood pressure Diastolic blood pressure Provider Name and Address Organization Details Last Updated DateTime 2 172.72 cm 50.8 kg/m2 979594. 85 g 102 /min 16 /min 91 % 91 % 2 L/min 132 mm[Hg] 68 mm[Hg] Cali Pandey [facility] 2 15:24:30 Date Recorded Body height Body mass index (BMI) Body weight Heart rate Respiratory rate Oxygen saturation Oxygen saturation in Arterial blood by Pulse oximetry Systolic blood pressure Diastolic blood pressure Provider Name and Address Organization Details Last Updated DateTime 3 172.72 cm 48.4 kg/m2 646009. 37 g 88 /min 16 /min 93 % 93 % 132 mm[Hg] 82 mm[Hg] Cali Pandey [facility] 3 14:39:23 Date Recorded Body height Body mass index (BMI) Body weight Oxygen saturation Oxygen saturation in Arterial blood by Pulse oximetry Heart rate Systolic blood pressure Diastolic blood pressure Provider Name and Address Organization Details Last Updated DateTime 3 172.72 cm 43.7 kg/m2 972053. 52 g 92 % 92 % 78 /min 122 mm[Hg] 84 mm[Hg] TAMMY VISHAL [facility] 3 14:22:56 Social History Question Answer Notes LastModified by Organizat ion Details LastModified Time Tobacco Smoking Status Never Smoker Second hand smoker Not Available [facility] 05/03/2020 03:30:41 What Is Your Level Of Alcohol Consumption? None [id number] Information not available 05/03/2020 What Is Your Level Of Caffeine Consumption? Occasional [id number] Information not available 05/03/2020 How Much Tobacco Do You Chew? None [id number] Information not available 05/03/2020 What Type Of Diet Are You Following? DIABETIC [id number] Information not available 05/03/2020 Which Illicit Or Recreational Drugs Have You Used? No [id number] Information not available 05/03/2020 Do You Or Have You Ever Used E-cigarettes Or Vape? Never Used Electronic Cigarettes [id number] Information not available 05/03/2020 Live Alone Or With Others? Alone [email or web address] Information not available 06/03/2017 Marital Status Informatio n not available 06/03/2017 What Was The Date Of Your Most Recent Tobacco Screening? 12/08/2018 [id number] Information not available 05/03/2020 How Many Children Do You Have? 3 [id number] Information not available 05/03/2020 Do You Or Have You Ever Used Smokeless Tobacco? Never Used Smokeless Tobacco [id number] Information not available 05/03/2020 How Much Tobacco Do You Smoke? No [id number] Information not available 05/03/2020 General Stress Level Low [email or web address] Information not available 06/03/2017 How Many Years Have You Smoked Tobacco? 0 [id number] Information not available 05/03/2020 Sex: Unknown Functional Status Question Answer Note LastModified by Organization D etails LastModified Time What is your exercise level? None [id number] Information not available 05/03/2020 Mental Status None recorded. Family History Relationship Description Onset Age of this Age Resolved Age Notes LastModified by Organization Details LastModified Time Father Intracranial aneurysm [email or web address] Not available 2016 14:12:50 Father Heart disease [email or web address] Not available 2016 11:49:19 Father Myocardial infarction [email or web address] Not available 06/03 11:49:24 Mother Diabetes mellitus [email or web address] Not available 2016 11:49:36 Sister Diabetes mellitus [email or web address] Not available 2016 11:49:36 Sister Hypercholest erolemia [email or web address] Not available 2016 11:49:45 Medical History Condition Response Thyroid Disease Y Atrial Fibrillation Y COPD Y Diabetes Y Sleep Apnea Y Aortic Aneurysm Y Hypertension Y Gynecological HistoryNo gynecological history recorded. Obstetrics History GPAL:G 0 P 0 0 0 0 Past Encounters Encounter ID Performer Location Encounter Start Date Encounter Closed Date Diagnosis/Indication Diagnosis SNOMED-CT Code Diagnosis ICD10 Code Diagnosis Note [id number] [facility] [address] [place] [address] 06/03/2017 11:08:04 06/04/2017 10:26:41 Benign essential hypertension 4890112 I10 Patient's blood pressure is {{well-con trolled* s omewhat well-contr olled not well-contr olled}} on present medical therapy. Patient is {{tolerati ng, without difficulty ,* having side effects with}} the current medication s. I have {{not made* made the following} } changes to the current regimen. {{ Patient is advised to maintain a blood pressure diary.*}} Patient was advised to eat a low-sodium diet (2 grams sodium or less daily). Type 2 eliazar betes mellitus 52128162 E11.59 Discussed importance of tight glycemic control to minimize cardiovasc ular disease progressio n. Atrial fibrillation 4943 6004 I48.91 EKG today with atrial fibrillati on with HR 93 bpm. Needs eventual outpatient Lexiscan to exclude ischemia as cause of afib. Resume Coumadin 2 mg qHS. Pt to call if bleeding resumes. INR in 4 days. Aortic aneurysm 77472580 I71.[address] Obstructiv e sleep apnea syndrome 92072893 G47.33 On CPAP. Congestive heart failure 88587597 I50.9 Pt with HF-pEF. Pt reports increased B LE edema since discharge and had increased to Lasix 40 mg bid 05/31/17. Increased from 40 mg bid to 80 mg bid and added metolazone 2.5 mg qd. 06/03/17. BMP 4 days. RTC 1 wk. [id number] [facility] [address] [place] [address] 06/17/2017 10:39:30 06/17/2017 16:07:22 Benign essential hypertension 6253734 I10 Patient's blood pressure is {{well-con trolled* s omewhat well-contr olled not well-contr olled}} on present medical therapy. Patient is {{tolerati ng, without difficulty ,* having side effects with}} the current medication s. I have {{not made* made the following} } changes to the current regimen. {{ Patient is advised to maintain a blood pressure diary.*}} Patient was advised to eat a low-sodium diet (2 grams sodium or less daily). Atrial fibrillation 4943 6004 I48.91 EKG today with atrial fibrillati on with HR 77 bpm. Needs eventual outpatient Lexiscan to exclude ischemia as cause of afib. INR 7.21 on Coumadin 3 mg. Hold Coumadin for 2 days. Recheck INR 06/19/17, before consider resuming Coumadin at lower dose. Hold digoxin untill digoxin level assessed. Congestive heart failure 17209122 I50.9 Pt with HF-pEF. Currently euvolemic. Pt previously reported increased B LE edema since discharge and had increased to Lasix 40 mg bid 05/31/17. Increased from 40 mg bid to 80 mg bid and added metolazone 2.5 mg qd. 06/03/17. BMP 06/11/17 with Cr 2.69 and elevated Ca. Patient stopped metolazone and returned to Lasix 80 mg qd 06/10/17.D ecreased to Lasix 40 mg qd 06/17/17. Digoxin level, CMP, Mg, CBC now. RTC 1 week. Type 2 eliazar betes mellitus 52347937 E11.59 Discussed importance of tight glycemic control to minimize cardiovasc ular disease progressio n. Aortic aneurysm 09228671 I71.[address] Obstructiv e sleep apnea syndrome 61361055 G47.33 On CPAP. [id number] [facility] [address] [place] [address] 06/26/2017 11:44:16 06/27/2017 10:04:12 Benign essential hypertension 4574015 I10 Patient's blood pressure is {{well-con trolled* s omewhat well-contr olled not well-contr olled}} on present medical therapy. Patient is {{tolerati ng, without difficulty ,* having side effects with}} the current medication s. I have {{not made* made the following} } changes to the current regimen. {{ Patient is advised to maintain a blood pressure diary.*}} Patient was advised to eat a low-sodium diet (2 grams sodium or less daily). Atrial fibrillation 4943 6004 I48.91 EKG today with atrial fibrillati on with HR 60 bpm. Needs eventual outpatient Lexiscan to exclude ischemia as cause of afib. once UTI is resolved. INR 7.21 on Coumadin 3 mg previously . Rechecked INR 06/25/17 with INR 1.6 on 1mg for one week. Coumadin changed to alternate 1 mg with 2 mg qHS 06/25/17. INR in 1 week. Continue digoxin. Congestive heart failure 92778526 I50.9 Pt with HF-pEF. Currently euvolemic. Pt previously reported increased B LE edema since discharge and had increased to Lasix 40 mg bid 05/31/17. Increased from 40 mg bid to 80 mg bid and added metolazone 2.5 mg qd. 06/03/17. BMP 06/11/17 with Cr 2.69 and elevated Ca, but had acute UTI. Patient stopped metolazone and returned to Lasix 80 mg qd 06/10/17.D ecreased to Lasix 40 mg qd 06/17/17. Digoxin level therapeuti c, Cr improved to 1.4 and Ca improved to 12.4 off Vit D and with increased hydration. CMP, Mg in 10 days. Consider increasing Mg supplement . Type 2 eliazar betes mellitus 40559232 E11.59 Discussed importance of tight glycemic control to minimize cardiovasc ular disease progressio n. Aortic aneurysm 35715199 I71.[address] Heart healthy, low-fat, low-choles terol, diabetic diet, with hand outside cutter consult. Obstructiv e sleep apnea syndrome 14953432 G47.33 On CPAP. Urine cult ure - Proteus 650625845 R82.79 She reports nausea for 3 weeks and bilateral inguinal discomfort for 1 week without dysuria, with reduced urine output and elevated Cr. Had urine culture 06/19/17 with >100,000 cfu/mL Proteus mirabilis. Patient needs follow-up with PCP KAYA. Began Augmentin 875/125 mg bid for 7 days. Repeat CMP for Cr and Ca/Mg in 10 days. [id number] [facility] [address] [place] [address] 07/10/2017 11:11:43 07/11/2017 10:30:51 Benign essential hypertension 3264265 I10 Patient's blood pressure is {{well-con trolled* s omewhat well-contr olled not well-contr olled}} on present medical therapy. Patient is {{tolerati ng, without difficulty ,* having side effects with}} the current medication s. I have {{not made* made the following} } changes to the current regimen. {{ Patient is advised to maintain a blood pressure diary.*}} Patient was advised to eat a low-sodium diet (2 grams sodium or less daily). Atrial fibrillation 4943 6004 I48.91 EKG today with atrial fibrillati on with HR 67 bpm. Needs eventual outpatient Lexiscan to exclude ischemia as cause of afib. and given exertional dyspnea which can be an anginal equivalent . Coumadin changed to alternate 1 mg with 2 mg qHS 06/25/17. INR therapeuti c at 2.2 07/09/17. Continue digoxin. Began MgOxide 07/10/17 for Mg 1.1. Congestive heart failure 95353725 I50.9 Pt with HF-pEF. Currently euvolemic. Pt previously reported increased B LE edema since discharge and had increased to Lasix 40 mg bid 05/31/17. Increased from 40 mg bid to 80 mg bid and added metolazone 2.5 mg qd. 06/03/17. BMP 06/11/17 with Cr 2.69 and elevated Ca, but had acute UTI. Patient stopped metolazone and returned to Lasix 80 mg qd 06/10/17.D ecreased to Lasix 40 mg qd 06/17/17. Digoxin level therapeuti c, Cr improved to 1.3 and Ca improved to 12.4 off Vit D and with increased hydration. CMP, Mg in 10 days. Began Mg supplement . Type 2 eliazar betes mellitus 26093443 E11.59 Discussed importance of tight glycemic control to minimize cardiovasc ular disease progressio n. Aortic aneurysm 65483114 I71.[address] Heart healthy, low-fat, low-choles terol, diabetic diet, with hand outside cutter consult. Obstructiv e sleep apnea syndrome 98362058 G47.33 On CPAP. Continue. Tolerating . Urine cult ure - Proteus 396771726 R82.79 She reports nausea for 3 weeks and bilateral inguinal discomfort for 1 week without dysuria, with reduced urine output and elevated Cr. Had urine culture 06/19/17 with >100,000 cfu/mL Proteus mirabilis. Patient needs follow-up with PCP KAYA. Completed Augmentin 875/125 mg bid for 7 days. Hypercalcemia 66923732 E 83.52 Ca improved to 12.4 off Vit D and with increased hydration, but calcium remains elevated. PCP instructed to f/u with PCP. CMP/Mg in 2 weeks. [facility] [address] [place] [address] 08/08/2017 14:35:22 08/08/2017 16:37:44 Benign essential hypertension 2751220 I10 Patient's blood pressure is {{well-con trolled* s omewhat well-contr olled not well-contr olled}} on present medical therapy. Patient is {{tolerati ng, without difficulty ,* having side effects with}} the current medication s. I have {{not made* made the following} } changes to the current regimen. {{ Patient is advised to maintain a blood pressure diary.*}} Patient was advised to eat a low-sodium diet (2 grams sodium or less daily). Atrial fibrillation 4943 6004 I48.91 EKG today with atrial fibrillati on with HR 67 bpm. Coumadin changed to alternate 1 mg with 2 mg qHS 06/25/17. INR therapeuti c. Continue digoxin. Began MgOxide 07/10/17 for Mg 1.1. On 08/08/17, Mg 1.2. Increased to magnesium oxide 400 mg bid 08/08/17. Congestive heart failure 92742429 I50.9 Pt with HF-pEF. Currently euvolemic. Had Dobutamine Myocardial Perfusion Study 07/30/17 : Negative dobutamine stress test for ischemia. Normal LV systolic function. Abnormal stress test. Artifact noted. No previous study to compare. LVEF >60%. Pt previously reported increased B LE edema since discharge and had increased to Lasix 40 mg bid 05/31/17. Increased from 40 mg bid to 80 mg bid and added metolazone 2.5 mg qd. 06/03/17. BMP 06/11/17 with Cr 2.69 and elevated Ca, but had acute UTI. Patient stopped metolazone and returned to Lasix 80 mg qd 06/10/17.D ecreased to Lasix 40 mg qd 06/17/17. Digoxin level therapeuti c, Cr improved to 1.3 and Ca improved to 12.4 off Vit D and with increased hydration. Had 08/08/17: K:4.4, CR:1.2, Ca 11.3, M.2. Type 2 eliazar betes mellitus 67903702 E11.59 Discussed importance of tight glycemic control to minimize cardiovasc ular disease progressio n. Aortic aneurysm 48943124 I71.9 Stable on CTscan 03/27/17: fusiform aneurysm of ascending aorta 4.2x4.1 cm. Heart healthy, low-fat, low-choles terol, diabetic diet, with hand outside cutter consult. Obstructiv e sleep apnea syndrome 90259786 G47.33 On CPAP. Continue. Tolerating . Urine cult ure - Proteus 590103654 R82.79 She reports nausea for 3 weeks and bilateral inguinal discomfort for 1 week without dysuria, with reduced urine output and elevated Cr. Had urine culture 06/19/17 with >100,000 cfu/mL Proteus mirabilis. Patient needs follow-up with PCP KAYA. Completed Augmentin 875/125 mg bid for 7 days. Hypercalcemia 54366573 E 83.52 Ca improved to 12.4 off Vit D and with increased hydration, but calcium remains elevated. Had 08/08/17: Ca 11.3. Pt instructed to f/u with PCP or endocrinol ogist for workup of hypercalce javed and possible parathyroi d disease. CMP/Mg in 4 weeks. Pain in ri ght lower limb 415798649 M79.604 Mild edema and pain right posterior knee and leg. Obtain LE Doppler. [id number] [facility] [address] [place] [address] 09/18/2017 14:53:43 09/25/2017 15:10:13 Essential hypertension 87101923 I10 Patient's blood pressure is {{well-con trolled* s omewhat well-contr olled not well-contr olled}} on present medical therapy. Patient is {{tolerati ng, without difficulty ,* having side effects with}} the current medication s. I have {{not made* made the following} } changes to the current regimen. {{ Patient is advised to maintain a blood pressure diary.}} Patient was advised to eat a low-sodium diet (2 grams sodium or less daily). Chronic ob structive pulmonary disease 67389491 J44.9 On Oxygen 1-2 L NC Type 2 eliazar betes mellitus 04706314 E11.59 Discussed importance of tight glycemic control to minimize cardiovasc ular disease progressio n. Atrial fibrillation 4943 6004 I48.91 Previously , EKG with atrial fibrillati on with HR 67 bpm. In irregularl y, irregular rhythm on exam. Coumadin changed to alternate 1 mg with 2 mg qHS 06/25/17. INR therapeuti c. Continue digoxin. Began MgOxide 07/10/17 for Mg 1.1. On 08/08/17, Mg 1.2. Increased to magnesium oxide 400 mg bid 08/08/17. Mg 1.4 09/11/17. Atypical chest pain 1025 81940 R07.89 Atypical. Intermitte nt chest pain which is epigastric . Had Dobutamine Myocardial Perfusion Study 07/30/17 : Negative dobutamine stress test for ischemia. Normal LV systolic function. Abnormal stress test. Artifact noted. No previous study to compare. LVEF >60%. Had ECHO 05/22/17:N ormal LV size,mild LVH, Normal global LV systolic function,E F 67%,atrial fibrillati on, technicall y difficult study with limited views, Aortic root is mildly dilated , diastolic function difficult to determine in the setting of atrial fibrillati on. Needs GI eval. Consider GERD or diabetic gastropare sis. Aortic aneurysm 12674161 I71.[address] scan 03/27/17: fusiform aneurysm of ascending aorta 4.2x4.1 cm. Heart healthy, low-fat, low-choles terol, diabetic diet, with hand outside cutter consult. Hyperlipidemia 66406285 E78.5 Needs to keep LDL less than 70, and HDL more than 40. Obtain FLP. [id number] [facility] OFFICE [address] [place] [address] 11/18/2017 16:10:22 11/18/2017 17:41:52 Atypical chest pain 329466773 R07.89 Resolved. Had Dobutamine Myocardial Perfusion Study 07/30/17 : Negative dobutamine stress test for ischemia. Normal LV systolic function. Abnormal stress test. Artifact noted. No previous study to compare. LVEF >60%. Had ECHO 05/22/17:N ormal LV size,mild LVH, Normal global LV systolic function,E F 67%,atrial fibrillati on, technicall y difficult study with limited views, Aortic root is mildly dilated , diastolic function difficult to determine in the setting of atrial fibrillati on. Needs GI eval. Consider GERD or diabetic gastropare sis. Essential hypertension 21818891 I10 Patient's blood pressure is {{well-con trolled* s omewhat well-contr olled not well-contr olled}} on present medical therapy. Patient is {{tolerati ng, without difficulty ,* having side effects with}} the current medication s. I have {{not made* made the following} } changes to the current regimen. {{ Patient is advised to maintain a blood pressure diary.}} Patient was advised to eat a low-sodium diet (2 grams sodium or less daily). Atrial fibrillation 4943 6004 I48.91 Previously , EKG with atrial fibrillati on with HR 67 bpm. In irregularl y, irregular rhythm on exam. Coumadin changed to alternate 1 mg with 2 mg qHS 06/25/17. INR therapeuti c. Continue digoxin. Began MgOxide 07/10/17 for Mg 1.1. On 08/08/17, Mg 1.2. Increased to magnesium oxide 400 mg bid 08/08/17. Mg 1.4 09/11/17. Obtain labs per PCP. Chronic ob structive pulmonary disease 10513407 J44.9 On Oxygen 1-2 L NC. Needs f/u with pulm. for considerat ion of bronchodil ator therapy. Type 2 eliazar betes mellitus 14201722 E11.59 Discussed importance of tight glycemic control to minimize cardiovasc ular disease progressio n. Aortic aneurysm 80096015 I71.[address] scan 03/27/17: fusiform aneurysm of ascending aorta 4.2x4.1 cm[address] Needs [address] f/u as per PCP 03/2018. Heart healthy, low-fat, low-choles terol, diabetic diet, with hand outside cutter consult. Hyperlipidemia 09877091 E78.5 Needs to keep LDL less than 70, and HDL more than 40. Had LDL 92 10/01/17. Patient wants to talk to PCP before starting statin. Obstructiv e sleep apnea syndrome 03322082 G47.33 On CPAP. Continue. Needs to resume while waiting on new mask. [id number] [address] [place] OFFICE [facility] [place] [address] 12/02/2017 16:26:52 12/02/2017 18:51:29 Atypical chest pain [id number] R07.89 Resolved. Had Dobutamine Myocardial Perfusion Study 07/30/17 : Negative dobutamine stress test for ischemia. Normal LV systolic function. Abnormal stress test. Artifact noted. No previous study to compare. LVEF >60%. Had ECHO 05/22/17:N ormal LV size,mild LVH, Normal global LV systolic function,E F 67%,atrial fibrillati on, technicall y difficult study with limited views, Aortic root is mildly dilated , diastolic function difficult to determine in the setting of atrial fibrillati on. Needs GI eval. Consider GERD or diabetic gastropare sis. Essential hypertension [id number] I10 Patient's blood pressure is {{well-con trolled so mewhat well-contr olled* not well-contr olled}} on present medical therapy. Patient is {{tolerati ng, without difficulty ,* having side effects with}} the current medication s. I have {{not made made the following* }} changes to the current regimen. {{ Patient is advised to maintain a blood pressure diary.*}} Patient was advised to eat a low-sodium diet (2 grams sodium or less daily). BP monitor- XL. Resumed furosemide 40 mg qd 12/02/17 which can assist with management of hypercalce javed and HTN. Atrial fibrillation 4943 6004 I48.91 Today, EKG with atrial fibrillati on with HR 59 bpm. In irregularl y, irregular rhythm on exam. Coumadin changed to alternate 1 mg Montano-Th with 2 mg F and Sat. INR therapeuti c. Continue digoxin. Began MgOxide 07/10/17 for Mg 1.1. On 08/08/17, Mg 1.2. Increased to magnesium oxide 400 mg bid 08/08/17. Mg 1.4 09/11/17. Obtain CMP, Mg. Chronic ob structive pulmonary disease 66289569 J44.9 On Oxygen 1-2 L NC. Needs f/u with pulm. for considerat ion of bronchodil ator therapy. Type 2 eliazar betes mellitus 45202328 E11.59 Discussed importance of tight glycemic control to minimize cardiovasc ular disease progressio n. Aortic aneurysm 86277202 I71.[address] scan 03/27/17: fusiform aneurysm of ascending aorta 4.2x4.[address] of chest 11/25/17 : The ascending aorta measuring 4.2 cm, stable. There is pleural based intraparen chymal air space disease in the medial aspect of the right lower lobe measuring 9x 16 mm which is new compared to previous exam, needs 3mo f/u air space disease. Needs pulm. f/u. Needs [address] f/u as per PCP 03/2018. Heart healthy, low-fat, low-choles terol, diabetic diet, with hand outside cutter consult. Hyperlipidemia 40010470 E78.5 Needs to keep LDL less than 70, and HDL more than 40. Had LDL 92 10/01/17. Began atorvastat in 20mg qHS 12/02/17. Obstructiv e sleep apnea syndrome 30490639 G47.33 On CPAP. Continue. Needs to resume while waiting on new mask. [id number] [address] [place] [address] [place] [address] 01/22/2018 15:59:36 01/23/2018 18:49:41 Atypical chest pain [id number] R07.89 Resolved. Had Dobutamine Myocardial Perfusion Study 07/30/17 : Negative dobutamine stress test for ischemia. Normal LV systolic function. Abnormal stress test. Artifact noted. No previous study to compare. LVEF >60%. Had ECHO 05/22/17:N ormal LV size,mild LVH, Normal global LV systolic function,E F 67%,atrial fibrillati on, technicall y difficult study with limited views, Aortic root is mildly dilated , diastolic function difficult to determine in the setting of atrial fibrillati on. Needs GI eval. Consider GERD or diabetic gastropare sis. Essential hypertension [id number] I10 Patient's blood pressure is {{well-con trolled so mewhat well-contr olled* not well-contr olled}} on present medical therapy. Patient is {{tolerati ng, without difficulty ,* having side effects with}} the current medication s. I have {{not made made the following* }} changes to the current regimen. {{ Patient is advised to maintain a blood pressure diary.*}} Patient was advised to eat a low-sodium diet (2 grams sodium or less daily). BP monitor- XL. Resumed furosemide 40 mg qd prn 12/02/17. Atrial fibrillation 4943 6004 I48.91 Today, EKG with atrial fibrillati on with HR 68 bpm. In irregularl y, irregular rhythm on exam. Coumadin changed. Had INR 1.7 01/22/18, with increase to 3 mg qHS and f/u INR 1 wk. Continue digoxin. Began MgOxide 07/10/17 for Mg 1.1. On 08/08/17, Mg 1.2. Increased to magnesium oxide 400 mg bid 08/08/17. Mg 1.4 09/11/17. Had 01/02/18: Na 137, K 4.5, Cl 99, CO2 27, GLU 261, BUN 29, Cr 1.45, AST 15, ALT 12, Mag 2.0, TSH 3.19, Free T4 1.1 In 1 month, obtain BMP, Mg, FLP, digoxin level given increased Cr. Chronic ob structive pulmonary disease 28132973 J44.9 On Oxygen 1-2 L NC. Needs f/u with pulm. Type 2 eliazar betes mellitus 61714948 E11.59 Discussed importance of tight glycemic control to minimize cardiovasc ular disease progressio n. Aortic aneurysm 71731279 I71.[address] scan 03/27/17: fusiform aneurysm of ascending aorta 4.2x4.[address] of chest 11/25/17 : The ascending aorta measuring 4.2 cm, stable. There is pleural based intraparen chymal air space disease in the medial aspect of the right lower lobe measuring 9x 16 mm which is new compared to previous exam, needs 3mo f/u air space disease. Needs pulm. f/u. Heart healthy, low-fat, low-choles terol, diabetic diet, with hand outside cutter consult. Hyperlipidemia 01107787 E78.5 Needs to keep LDL less than 70, and HDL more than 40. Had LDL 92 10/01/17. Had 01/02/18: TC 192, HDL 30, TG 274, LDL 120, CK 21. Began atorvastat in 20mg qHS 01/22/18. FLP 1 mo. Obstructiv e sleep apnea syndrome 96234902 G47.33 On CPAP. Continue. [place]ed [place] pulmonolog ist. [id number] [address]opes [place] OFFICE [facility] [place] [address] 04/02/2018 14:49:32 04/02/2018 17:14:31 Hyperlipidemia 63212644 E78.5 Needs to keep LDL less than 70, and HDL more than 40. Had LDL 92 10/01/17. Had 01/02/18: TC 192, HDL 30, TG 274, LDL 120, CK 21. Began atorvastat in 20 mg qHS 01/22/18. Had FLP 02/19/18: TG 224, LDL 72. Patient does not want to increase statin at this time. Atypical chest pain 1025 54280 R07.89 Stable. Atypical. Had Dobutamine Myocardial Perfusion Study 07/30/17 : Negative dobutamine stress test for ischemia. Normal LV systolic function. Abnormal stress test. Artifact noted. No previous study to compare. LVEF >60%. Had ECHO 05/22/17:N ormal LV size,mild LVH, Normal global LV systolic function,E F 67%,atrial fibrillati on, technicall y difficult study with limited views, Aortic root is mildly dilated , diastolic function difficult to determine in the setting of atrial fibrillati on. Consider costochond ritis, GERD, or diabetic gastropare sis. Essential hypertension 80952077 I10 Patient's blood pressure is {{well-con trolled* s omewhat well-contr olled not well-contr olled}} on present medical therapy. Patient is {{tolerati ng, without difficulty ,* having side effects with}} the current medication s. I have {{not made* made the following} } changes to the current regimen. {{ Patient is advised to maintain a blood pressure diary.*}} Patient was advised to eat a low-sodium diet (2 grams sodium or less daily). BP monitor- XL. Resumed furosemide 40 mg qd prn 12/02/17. Atrial fibrillation 4943 6004 I48.91 Today, EKG with atrial fibrillati on with HR 61 bpm. In irregularl y, irregular rhythm on exam and EKG. Coumadin changed. INR 1.9 per [facility]. Continue digoxin. Began MgOxide 07/10/17 for Mg 1.1. On 08/08/17, Mg 1.2. Increased to magnesium oxide 400 mg bid 08/08/17. Mg 1.4 09/11/17. Had 01/02/18: Na 137, K 4.5, Cl 99, CO2 27, GLU 261, BUN 29, Cr 1.45, AST 15, ALT 12, Mag 2.0, TSH 3.19, Free T4 1.1 Had 02/19/18: Cr 1.17, K 4.3, digoxin 0.6, Mg 1.9. Chronic ob structive pulmonary disease 79038647 J44.9 On Oxygen 1-2 L NC. Needs f/u with pulm. Type 2 eliazar betes mellitus 83166226 E11.59 Discussed importance of tight glycemic control to minimize cardiovasc ular disease progressio n. Aortic aneurysm 99671054 I71.[address] scan 03/27/17: fusiform aneurysm of ascending aorta 4.2x4.[address] of chest 11/25/17 : The ascending aorta measuring 4.2 cm, stable. There is pleural based intraparen chymal air space disease in the medial aspect of the right lower lobe measuring 9x 16 mm which is new compared to previous exam, needs 3mo f/u air space disease. Needs pulm. f/u. Heart healthy, low-fat, low-choles terol, diabetic diet, with hand outside cutter consult. Obstructiv e sleep apnea syndrome 15620442 G47.33 On CPAP. Continue. Followed by pulmonolog ist. [id number] [address] [place] OFFICE [address] [place] [address] 10/01/2018 15:41:45 10/01/2018 17:17:11 Hyperlipidemia 91439198 E78.5 Needs to keep LDL less than 70, and HDL more than 40. Had LDL 92 10/01/17. Had 01/02/18: TC 192, HDL 30, TG 274, LDL 120, CK 21. Began atorvastat in 20 mg qHS 01/22/18. Had FLP 02/19/18: TG 224, LDL 72. Patient does not want to increase statin at this time. Obtain FLP result per PCP (08/28/2018 ): LDL 122, TG 234. Improve diabetic control. Increased to atorvastat in 40 mg qHS 10/01/18. Obtain FLP 1 mo. Atypical chest pain 1025 40733 R07.89 Improved. Atypical. Had Dobutamine Myocardial Perfusion Study 07/30/17 : Negative dobutamine stress test for ischemia. Normal LV systolic function. Abnormal stress test. Artifact noted. No previous study to compare. LVEF >60%. Had ECHO 05/22/17:N ormal LV size,mild LVH, Normal global LV systolic function,E F 67%,atrial fibrillati on, technicall y difficult study with limited views, Aortic root is mildly dilated , diastolic function difficult to determine in the setting of atrial fibrillati on. Consider costochond ritis, GERD, or diabetic gastropare sis. Essential hypertension [id number] I10 Patient's blood pressure is {{well-con trolled* s omewhat well-contr olled not well-contr olled}} on present medical therapy. Patient is {{tolerati ng, without difficulty ,* having side effects with}} the current medication s. I have {{not made* made the following} } changes to the current regimen. {{ Patient is advised to maintain a blood pressure diary.*}} Patient was advised to eat a low-sodium diet (2 grams sodium or less daily). BP monitor- XL. Resumed furosemide 40 mg qd prn 12/02/17. Atrial fibrillation 4943 6004 I48.91 Today, EKG with atrial fibrillati on with HR 67 bpm. In irregularl y, irregular rhythm on exam and EKG. Coumadin changed. INR 2.0 per [facility]. Continue digoxin. Began MgOxide 07/10/17 for Mg 1.1. On 08/08/17, Mg 1.2. Increased to magnesium oxide 400 mg bid 08/08/17. Mg 1.4 09/11/17. Had 01/02/18: Na 137, K 4.5, Cl 99, CO2 27, GLU 261, BUN 29, Cr 1.45, AST 15, ALT 12, Mag 2.0, TSH 3.19, Free T4 1.1 Had 02/19/18: Cr 1.17, K 4.3, digoxin 0.6, Mg 1.9. Had 08/28/18: Cr 1.08, K 4.2, HgbA1C 10.5%, Chronic ob structive pulmonary disease 35565277 J44.9 On Oxygen 1-2 L NC prn. Needs f/u with pulm. Type 2 eliazar betes mellitus 43951584 E11.59 Discussed importance of tight glycemic control to minimize cardiovasc ular disease progressio n. Aortic aneurysm 72588960 I71.[address] of chest 06/26/18: ectasia of ascending aorta 4.[address] of chest 11/25/17 : The ascending aorta measuring 4.2 cm, stable. There is pleural based intraparen chymal air space disease in the medial aspect of the right lower lobe measuring 9x 16 mm which is new compared to previous exam, needs 3mo f/u air space disease. Stable on CT scan 03/27/17: fusiform aneurysm of ascending aorta 4.2x4.1 cm. Needs pulm. f/u. Heart healthy, low-fat, low-choles terol, diabetic diet, with hand outside cutter consult. Obtain chest CT early 2019. Obstructiv e sleep apnea syndrome 90508806 G47.33 On BiPAP. Continue. Followed by pulmonolog ist. Obesity 279478767 E66.9 20 lb. weight loss recommende d over the next 2 months. Hypothyroidism 94535371 E03.9 Medication changed recently per endocrinol ogist. Had 08/2018: free T4 0.8 normal. [id number] [facility] [address] [place] [address] 12/08/2018 15:22:53 12/08/2018 17:14:42 Hyperlipidemia 77963363 E78.5 Needs to keep LDL less than 70, and HDL more than 40. Had LDL 92 10/01/17. Had 01/02/18: TC 192, HDL 30, TG 274, LDL 120, CK 21. Began atorvastat in 20 mg qHS 01/22/18. Had FLP 02/19/18: TG 224, LDL 72. Patient does not want to increase statin at this time. Obtain FLP result per PCP (08/28/2018 ): LDL 122, TG 234. Improve diabetic control. Increased to atorvastat in 40 mg qHS 10/01/18. Had 11/05/18: LDL 65, TG 192. Began fish oil 2 gm bid 12/08/18. Atypical chest pain 1025 97620 R07.89 Improved. Atypical. Had Dobutamine Myocardial Perfusion Study 07/30/17 : Negative dobutamine stress test for ischemia. Normal LV systolic function. Abnormal stress test. Artifact noted. No previous study to compare. LVEF >60%. Had ECHO 05/22/17:N ormal LV size,mild LVH, Normal global LV systolic function,E F 67%,atrial fibrillati on, technicall y difficult study with limited views, Aortic root is mildly dilated , diastolic function difficult to determine in the setting of atrial fibrillati on. Consider costochond ritis, GERD, or diabetic gastropare sis. Essential hypertension 71527102 I10 Patient's blood pressure is {{well-con trolled* s omewhat well-contr olled not well-contr olled}} on present medical therapy. Patient is {{tolerati ng, without difficulty ,* having side effects with}} the current medication s. I have {{not made* made the following} } changes to the current regimen. {{ Patient is advised to maintain a blood pressure diary.*}} Patient was advised to eat a low-sodium diet (2 grams sodium or less daily). BP monitor- XL. Resumed furosemide 40 mg qd prn 12/02/17. Atrial fibrillation 4943 6004 I48.91 Today, EKG with atrial fibrillati on with HR 67 bpm. In irregularl y, irregular rhythm on exam and EKG. Coumadin changed. INR 1.9 per [facility]. Continue digoxin. Began MgOxide 07/10/17 for Mg 1.1. On 08/08/17, Mg 1.2. Increased to magnesium oxide 400 mg bid 08/08/17. Mg 1.4 09/11/17. Had 01/02/18: Na 137, K 4.5, Cl 99, CO2 27, GLU 261, BUN 29, Cr 1.45, AST 15, ALT 12, Mag 2.0, TSH 3.19, Free T4 1.1 Had 02/19/18: Cr 1.17, K 4.3, digoxin 0.6, Mg 1.9. Had 08/28/18: Cr 1.08, K 4.2, HgbA1C 10.5%, Chronic ob structive pulmonary disease 37653532 J44.9 On Oxygen 1-2 L NC prn. Needs f/u with pulm. Type 2 eliazar betes mellitus 38907003 E11.59 Discussed importance of tight glycemic control to minimize cardiovasc ular disease progressio n. Aortic aneurysm 73400583 I71.[address] of chest 06/26/18: ectasia of ascending aorta 4.[address] of chest 11/25/17 : The ascending aorta measuring 4.2 cm, stable. There is pleural based intraparen chymal air space disease in the medial aspect of the right lower lobe measuring 9x 16 mm which is new compared to previous exam, needs 3mo f/u air space disease. Stable on CT scan 03/27/17: fusiform aneurysm of ascending aorta 4.2x4.1 cm. Needs pulm. f/u. Heart healthy, low-fat, low-choles terol, diabetic diet, with hand outside cutter consult. Obtain chest CT early 2019. Obstructiv e sleep apnea syndrome 64135194 G47.33 On BiPAP. Continue. Followed by pulmonolog ist. Obesity 740439142 E66.9 20 lb. weight loss recommende d over the next 2 months. Hypothyroidism 99947814 E03.9 Medication changed recently per endocrinol ogist. Had 08/2018: free T4 0.8 normal. [id number] [facility] OFFICE [facility] [place] [address] 04/08/2019 15:48:06 04/08/2019 16:48:51 Hyperlipidemia 89833278 E78.5 Needs to keep LDL less than 70, and HDL more than 40. LDL is 69. HDL is 29. COntinue statin and fish oil Had 01/02/18: TC 192, HDL 30, TG 274, LDL 120, CK 21. Began atorvastat in 20 mg qHS 01/22/18. Had FLP 02/19/18: TG 224, LDL 72. Patient does not want to increase statin at this time. Obtain FLP result per PCP (08/28/2018 ): LDL 122, TG 234. Improve diabetic control. Increased to atorvastat in 40 mg qHS 10/01/18. Had 11/05/18: LDL 65, TG 192. Began fish oil 2 gm bid 12/08/18. Atypical chest pain 1025 53866 R07.89 Improved. Atypical. Had Dobutamine Myocardial Perfusion Study 07/30/17 : Negative dobutamine stress test for ischemia. Normal LV systolic function. Abnormal stress test. Artifact noted. No previous study to compare. LVEF >60%. Had ECHO 05/22/17:N ormal LV size,mild LVH, Normal global LV systolic function,E F 67%,atrial fibrillati on, technicall y difficult study with limited views, Aortic root is mildly dilated , diastolic function difficult to determine in the setting of atrial fibrillati on. Consider costochond ritis, GERD, or diabetic gastropare sis. Essential hypertension 46620110 I10 Patient's blood pressure is {{well-con trolled* s omewhat well-contr olled not well-contr olled}} on present medical therapy. Patient is {{tolerati ng, without difficulty ,* having side effects with}} the current medication s. I have {{not made* made the following} } changes to the current regimen. {{ Patient is advised to maintain a blood pressure diary.*}} Patient was advised to eat a low-sodium diet (2 grams sodium or less daily). BP monitor- XL. Resumed furosemide 40 mg qd prn 12/02/17. Atrial fibrillation 4943 6004 I48.91 Today, EKG with atrial fibrillati on with HR 67 bpm. In irregularl y, irregular rhythm on exam and EKG. Continue Coumadin Continue digoxin. Began MgOxide 07/10/17 for Mg 1.1. On 08/08/17, Mg 1.2. Increased to magnesium oxide 400 mg bid 08/08/17. Mg 1.4 09/11/17. Had 01/02/18: Na 137, K 4.5, Cl 99, CO2 27, GLU 261, BUN 29, Cr 1.45, AST 15, ALT 12, Mag 2.0, TSH 3.19, Free T4 1.1 Had 02/19/18: Cr 1.17, K 4.3, digoxin 0.6, Mg 1.9. Had 08/28/18: Cr 1.08, K 4.2, HgbA1C 10.5%, Chronic ob structive pulmonary disease 25492897 J44.9 On Oxygen 1-2 L NC prn. Needs f/u with pulm. Type 2 eliazar betes mellitus 74719893 E11.59 Discussed importance of tight glycemic control to minimize cardiovasc ular disease progressio n. Aortic aneurysm 31592311 I71.9 Stable. We may use 2D echo for serial assessment of her proximal ascending aortic aneurysm to minimize radiation risk from yearly CT scans Had CT of chest 06/26/18: ectasia of ascending aorta 4.[address] of chest 11/25/17 : The ascending aorta measuring 4.2 cm, stable. There is pleural based intraparen chymal air space disease in the medial aspect of the right lower lobe measuring 9x 16 mm which is new compared to previous exam, needs 3mo f/u air space disease. Stable on CT scan 03/27/17: fusiform aneurysm of ascending aorta 4.2x4.1 cm. Needs pulm. f/u. Heart healthy, low-fat, low-choles terol, diabetic diet, with hand outside cutter consult. Obtain chest CT early 2019. Obstructiv e sleep apnea syndrome 33472525 G47.33 On BiPAP. Continue. Followed by pulmonolog ist. Obesity 788177401 E66.9 20 lb. weight loss recommende d over the next 2 months. Hypothyroidism 17303120 E03.9 Medication changed recently per endocrinol ogist. Had 08/2018: free T4 0.8 normal. Benign hypertension 1072 5009 I10 [id number] [facility] OFF[facility] [address] [place] [address] 01/25/2020 16:04:16 01/25/2020 19:14:21 Hyperlipidemia 37144735 E78.5 Needs to keep LDL less than 70, and HDL more than 40. LDL is 69. HDL is 29. COntinue statin and fish oil Had 01/02/18: TC 192, HDL 30, TG 274, LDL 120, CK 21. Began atorvastat in 20 mg qHS 01/22/18. Had FLP 02/19/18: TG 224, LDL 72. Patient does not want to increase statin at this time. Obtain FLP result per PCP (08/28/2018 ): LDL 122, TG 234. Improve diabetic control. Increased to atorvastat in 40 mg qHS 10/01/18. Had 11/05/18: LDL 65, TG 192. Began fish oil 2 gm bid 12/08/18. Atypical chest pain 1025 63857 R07.89 Improved. Atypical. Had Dobutamine Myocardial Perfusion Study 07/30/17 : Negative dobutamine stress test for ischemia. Normal LV systolic function. Abnormal stress test. Artifact noted. No previous study to compare. LVEF >60%. Had ECHO 05/22/17:N ormal LV size,mild LVH, Normal global LV systolic function,E F 67%,atrial fibrillati on, technicall y difficult study with limited views, Aortic root is mildly dilated , diastolic function difficult to determine in the setting of atrial fibrillati on. Consider costochond ritis, GERD, or diabetic gastropare sis. Essential hypertension 93081287 I10 Patient's blood pressure is {{well-con trolled* s omewhat well-contr olled not well-contr olled}} on present medical therapy. Patient is {{tolerati ng, without difficulty ,* having side effects with}} the current medication s. I have {{not made* made the following} } changes to the current regimen. {{ Patient is advised to maintain a blood pressure diary.*}} Patient was advised to eat a low-sodium diet (2 grams sodium or less daily). BP monitor- XL. Resumed furosemide 40 mg qd prn 12/02/17. Atrial fibrillation 4943 6004 I48.91 HR 60. Will d/c Digoxin. Continue Metoprolol and Diltiazem Continue Coumadin Began MgOxide 07/10/17 for Mg 1.1. On 08/08/17, Mg 1.2. Increased to magnesium oxide 400 mg bid 08/08/17. Mg 1.4 09/11/17. Had 01/02/18: Na 137, K 4.5, Cl 99, CO2 27, GLU 261, BUN 29, Cr 1.45, AST 15, ALT 12, Mag 2.0, TSH 3.19, Free T4 1.1 Had 02/19/18: Cr 1.17, K 4.3, digoxin 0.6, Mg 1.9. Had 08/28/18: Cr 1.08, K 4.2, HgbA1C 10.5%, Chronic ob structive pulmonary disease 74866843 J44.9 On Oxygen 1-2 L NC prn. Needs f/u with pulm. Type 2 eliazar betes mellitus 25799706 E11.59 Discussed importance of tight glycemic control to minimize cardiovasc ular disease progressio n. Aortic aneurysm 50311261 I71.9 Stable. aorta measures 4.3 cm on 2D echo. Consider vascular referral Had CT of chest 06/26/18: ectasia of ascending aorta 4.[address] of chest 11/25/17 : The ascending aorta measuring 4.2 cm, stable. There is pleural based intraparen chymal air space disease in the medial aspect of the right lower lobe measuring 9x 16 mm which is new compared to previous exam, needs 3mo f/u air space disease. Stable on CT scan 03/27/17: fusiform aneurysm of ascending aorta 4.2x4.1 cm. Needs pulm. f/u. Heart healthy, low-fat, low-choles terol, diabetic diet, with hand outside cutter consult. Obtain chest CT early 2019. Obstructiv e sleep apnea syndrome 04444942 G47.33 On BiPAP. Continue. Followed by pulmonolog ist. Obesity 589579858 E66.9 20 lb. weight loss recommende d over the next 2 months. Hypothyroidism 13138625 E03.9 Medication changed recently per endocrinol ogist. Had 08/2018: free T4 0.8 normal. Benign hypertension 1072 5009 I10 [id number] [facility] OFFICE [address] [place] [address] 07/13/2020 14:52:41 07/13/2020 16:13:43 Hyperlipidemia 38340728 E78.5 Needs to keep LDL less than 70, and HDL more than 40. LDL is 69. HDL is 29. COntinue statin and fish oil Had 01/02/18: TC 192, HDL 30, TG 274, LDL 120, CK 21. Began atorvastat in 20 mg qHS 01/22/18. Had FLP 02/19/18: TG 224, LDL 72. Patient does not want to increase statin at this time. Obtain FLP result per PCP (08/28/2018 ): LDL 122, TG 234. Improve diabetic control. Increased to atorvastat in 40 mg qHS 10/01/18. Had 11/05/18: LDL 65, TG 192. She stopped atorvastat in 12/2019, for unclear reasons per patient. Obtain FLP. Atypical chest pain 1025 41273 R07.89 Atypical. Had Dobutamine Myocardial Perfusion Study 07/30/17 : Negative dobutamine stress test for ischemia. Normal LV systolic function. Abnormal stress test. Artifact noted. No previous study to compare. LVEF >60%. Consider costochond ritis, GERD, or diabetic gastropare sis. Essential hypertension 34396335 I10 Patient's blood pressure is {{well-con trolled* s omewhat well-contr olled not well-contr olled}} on present medical therapy. Patient is {{tolerati ng, without difficulty ,* having side effects with}} the current medication s. I have {{not made* made the following} } changes to the current regimen. {{ Patient is advised to maintain a blood pressure diary.*}} Patient was advised to eat a low-sodium diet (2 grams sodium or less daily). BP monitor- XL. Atrial fibrillation 4943 6004 I48.91 HR 76. Continue metoprolol and diltiazem. Continue Coumadin. Had INR 3.5 1 week ago per patient report. Needs repeat INR tomorrow and may need dose reduction. Began MgOxide 07/10/17 for Mg 1.1. On 08/08/17, Mg 1.2. Increased to magnesium oxide 400 mg bid 08/08/17. Mg 1.4 09/11/17. Had 01/02/18: Na 137, K 4.5, Cl 99, CO2 27, GLU 261, BUN 29, Cr 1.45, AST 15, ALT 12, Mag 2.0, TSH 3.19, Free T4 1.1 Had 02/19/18: Cr 1.17, K 4.3, digoxin 0.6, Mg 1.9. Had 08/28/18: Cr 1.08, K 4.2, HgbA1C 10.5%, Chronic ob structive pulmonary disease [id number] J44.9 Needs f/u with pulm. Type 2 eliazar betes mellitus [id number] E11.59 Discussed importance of tight glycemic control to minimize cardiovasc ular disease progressio n. Aortic aneurysm 02164004 I71.9 Stable. aorta measures 4.3 cm on 2D echo. Had ECHO 08/06/19: LV chamber size is normal,LV wall thickness is normal, EF 55-60%, diastolic function is indetermin ate due to atrial fibrillati on, the aortic valve is mildly calcified, there is mild aortic root calcificat ion, the mitral valve leaflet is mildly thickened, atrial fibrillati on. Ascending aortic diameter 4.[address] of chest 06/26/18: ectasia of ascending aorta 4.[address] of chest 11/25/17 : The ascending aorta measuring 4.2 cm, stable. There is pleural based intraparen chymal air space disease in the medial aspect of the right lower lobe measuring 9x 16 mm which is new compared to previous exam, needs 3mo f/u air space disease. Stable on CT scan 03/27/17: fusiform aneurysm of ascending aorta 4.2x4.1 cm. Needs pulm. f/u. Heart healthy, low-fat, low-choles terol, diabetic diet, with hand outside cutter consult. Obtain chest CTA 08/2020, delayed pending reduction in COVID-19 risk. Obstructiv e sleep apnea syndrome [id number] G47.33 On BiPAP. Continue. Followed by pulmonolog ist. Obesity [id number] E66.9 20 lb. weight loss recommende d over the next 2 months. Hypothyroidism 06401824 E03.9 PCP now following. Had 08/2018: free T4 0.8 normal. Obtain TSH. Dyspnea on exertion 6084 5006 R06.09 Patient presents with {{chest* a rm back ja w}} pain {{typical of angina wit h atypical features*} } and exertional dyspnea which can be an anginal equivalent . Given the history, exam findings and {{high* in termediate low}} cardiac risk factors, I {{feel* do not feel}} additional investigat ion is warranted. I have made arrangemen ts in the near future for {{a pharmacolo gic Lexiscan stress nuclear test due to reduced functional capacity or conduction abnormalit y# an exercise stress echocardio gram to evaluate for any ischemia, structural heart disease, or exercise induced arrythmia an exercise stress nuclear test an exercise stress nuclear test (stress echo not possible due to COPD or obesity) a n exercise stress nuclear test and an echocardio gram to evaluate for any ischemia or structural heart disease a pharmacolo gic stress nuclear test due to reduced functional capacity or conduction abnormalit y cardiac catheteriz ation an echocardio gram to evaluate left ventricula r function and any structural heart disease or valvular abnormalit y}}. Stress test, delayed pending reduction in COVID-19 risk. Patient had COVID-19 PCR positive 06/20/20 testing at [facility]. Obtain CXR PA and lateral given slowly improving dyspnea s/p COVID-19 pneumonia. The procedure was discussed with the patient, and risks, benefits, and alternativ e options were explained. {{ The patient was informed about heart catheteriz ation and interventi onal procedures and agrees to proceed.}} Appropriat e labwork {{has has not*}} been performed recently, therefore I {{have not have*} } made arrangemen ts for further testing: INR, CMP, Mg, CBC, FLP, TSH. I have asked the patient to curtail exercise and activities until our investigat ion is complete. I have {{made no made the following* }} adjustment s to the present medical regimen. {{ Patient has been started on daily aspirin.}} {{ Patient has been given a prescripti on for sublingual nitroglyce rin.}}Had 17 lb weight gain. Had Dobutamine Myocardial Perfusion Study 07/30/17 : Negative dobutamine stress test for ischemia. Normal LV systolic function. Abnormal stress test. Artifact noted. No previous study to compare. LVEF >60%. [id number] [address] [facility] [address] [place] [address] 11/30/2020 14:36:37 12/21/2020 11:37:12 Dyspnea on exertion [id number] R06.09 Patient presents with {{chest* a rm back ja w}} pain {{typical of angina wit h atypical features*} } and exertional dyspnea which can be an anginal equivalent . Given the history, exam findings and {{high* in termediate low}} cardiac risk factors, I {{feel* do not feel}} additional investigat ion is warranted. I have made arrangemen ts in the near future for {{an exercise stress echocardio gram to evaluate for any ischemia, structural heart disease, or exercise induced arrythmia an exercise stress nuclear test an exercise stress nuclear test (stress echo not possible due to COPD or obesity) a n exercise stress nuclear test and an echocardio gram to evaluate for any ischemia or structural heart disease a pharmacolo gic stress nuclear test due to reduced functional capacity or conduction abnormalit y cardiac catheteriz ation an echocardio gram to evaluate left ventricula r function and any structural heart disease or valvular abnormalit y a pharmacolo gic dobutamine stress nuclear test due to reduced functional capacity or conduction abnormalit y#}}. Obtain echo to evaluate for structural /functiona l disease. The procedure was discussed with the patient, and risks, benefits, and alternativ e options were explained. {{ The patient was informed about heart catheteriz ation and interventi onal procedures and agrees to proceed.}} Appropriat e labwork {{has has not*}} been performed recently, therefore I {{have not have*} } made arrangemen ts for further testing: CPK, CMP, Mg, CBC, FLP, TSH. I have asked the patient to curtail exercise and activities until our investigat ion is complete. I have {{made no made the following* }} adjustment s to the present medical regimen. {{ Patient has been started on daily aspirin.}} {{ Patient has been given a prescripti on for sublingual nitroglyce rin.}} Had 14 lb weight gain. Had Dobutamine Myocardial Perfusion Study 07/30/17 : Negative dobutamine stress test for ischemia. Normal LV systolic function. Abnormal stress test. Artifact noted. No previous study to compare. LVEF >60%. Hyperlipidemia 78309704 E78.5 Needs to keep LDL less than 70, and HDL more than 40. Continue statin and fish oil Had 01/02/18: TC 192, HDL 30, TG 274, LDL 120, CK 21. Began atorvastat in 20 mg qHS 01/22/18. Had FLP 02/19/18: TG 224, LDL 72. Patient does not want to increase statin at this time. Obtain FLP result per PCP (08/28/2018 ): LDL 122, TG 234. Improve diabetic control. Increased to atorvastat in 40 mg qHS 10/01/18. Had 11/05/18: LDL 65, TG 192. She stopped atorvastat in 12/2019, for muscle aches per patient. Had 07/14/20 LIPID: TC 176, TG 197, HDL 39, LDL 105. She was on rosuvastat in but this was stopped due to bilateral leg echos. Had 10/28/20: HDL 46, TG 204, LDL 136 She began pravastati n 40 mg qHS 11/28/20. For increased TG, improve control of DM, with hgbA1C 7.3% 11/30/20. Not a candidate for Vascepa given insurance. Obtain FLP, CMP, Mg, CPK, TSH. Atypical chest pain 1025 29623 R07.89 Exertional . Obtain stress test as above. Had Dobutamine Myocardial Perfusion Study 07/30/17 : Negative dobutamine stress test for ischemia. Normal LV systolic function. Abnormal stress test. Artifact noted. No previous study to compare. LVEF >60%. Consider costochond ritis, GERD, or diabetic gastropare sis. Essential hypertension 34058337 I10 Patient's blood pressure is {{well-con trolled so mewhat well-contr olled* not well-contr olled}} on present medical therapy. Patient is {{tolerati ng, without difficulty ,* having side effects with}} the current medication s. I have {{not made made the following* }} changes to the current regimen. {{ Patient is advised to maintain a blood pressure diary.*}} Patient was advised to eat a low-sodium diet (2 grams sodium or less daily). BP monitor- XL. Increased to metoprolol succinate 25 mg qd 11/30/20, for tachypalpi tations and HTN. Atrial fibrillation 4943 6004 I48.91 Had EKG 11/30/20: afib 79 bpm. Continue metoprolol and diltiazem. Continue Coumadin. Had INR 2.5 1 week ago per patient report. Needs repeat INR in 2 -3 weeks, on Coumadin 2 mg qHS. Began MgOxide 07/10/17 for Mg 1.1. On 08/08/17, Mg 1.2. Increased to magnesium oxide 400 mg bid 08/08/17. Increased to metoprolol succinate 25 mg qd 11/30/20, for tachypalpi tations and HTN. Chronic ob structive pulmonary disease 53408379 J44.9 Needs f/u with pulm. Type 2 eliazar betes mellitus 39426757 E11.59 Discussed importance of tight glycemic control to minimize cardiovasc ular disease progressio n. Aortic aneurysm 14357487 I71.9 Stable. Aorta measures 4.3 cm on 2D echo and on CT. Had CT of chest with contrast 11/23/20: ectasia of ascending aorta measuring 4.3 cm. Had ECHO 08/06/19: LV chamber size is normal,LV wall thickness is normal, EF 55-60%, diastolic function is indetermin ate due to atrial fibrillati on, the aortic valve is mildly calcified, there is mild aortic root calcificat ion, the mitral valve leaflet is mildly thickened, atrial fibrillati on. Ascending aortic diameter 4.[address] of chest 06/26/18: ectasia of ascending aorta 4.[address] of chest 11/25/17 : The ascending aorta measuring 4.2 cm, stable. There is pleural based intraparen chymal air space disease in the medial aspect of the right lower lobe measuring 9x 16 mm which is new compared to previous exam, needs 3mo f/u air space disease. Stable on CT scan 03/27/17: fusiform aneurysm of ascending aorta 4.2x4.1 cm. Needs pulm. f/u. Heart healthy, low-fat, low-choles terol, diabetic diet, with hand outside cutter consult. Optimize BP and cholestero l control., Obtain next chest CTA 11/23/2021. Obstructiv e sleep apnea syndrome 20592266 G47.33 On BiPAP. Continue. Followed by pulmonolog ist. She had titration study. Obesity 719712999 E66.9 20 lb. weight loss recommende d over the next 2 months. Hypothyroidism 47947647 E03.9 PCP now following. Had 08/2018: free T4 0.8 normal. Obtain TSH. [id number] [address] [facility] [address] [place] [address] 02/22/2021 12:36:22 02/22/2021 14:34:49 Dyspnea on exertion 97342622 R06.09 Patient presents with {{chest* a rm back ja w}} pain {{typical of angina wit h atypical features*} } and exertional dyspnea which can be an anginal equivalent . Given the history, exam findings and {{high* in termediate low}} cardiac risk factors, I {{feel* do not feel}} additional investigat ion is warranted. Had dobutamine nuclear stress 01/10/21: positive for ischemia, with partially reversible defect in kai-api kannan and septal areas (new c/w 07/30/17), LVEF 59%. Had ECHO 12/20/20: Atrial fibrillati on is present,LV chamber size is normal,the re is borderline LVH,The estimated LVEF is 55-60%(nor mal),diast olic function is indetermin ate due to atrial fibrillati on,there is trace tricuspid regurgitat ion,there is minimal pulmonic regurgitat ion, normal RVSP. The patient will be scheduled for left heart catheteriz ation, with coronary angiogram, and possible PTCA/Stent . The procedure was discussed with the patient, and risks, benefits, and alternativ e options were explained. The patient was given informatio n about heart catheteriz ation and interventi onal procedures . The patient agrees to proceed at [facility]. #####Stop Coumadin 5 days prior to the procedure. Reduce Basaglar to 1/2 usual dose PM evening before [facility], and hold in AM of [facility]. The procedure was discussed with the patient, and risks, benefits, and alternativ e options were explained. {{ The patient was informed about heart catheteriz ation and interventi onal procedures and agrees to proceed.}} Had 14 lb weight gain in recent months. Had Dobutamine Myocardial Perfusion Study 07/30/17 : Negative dobutamine stress test for ischemia. Normal LV systolic function. Abnormal stress test. Artifact noted. No previous study to compare. LVEF >60%. Had 01/12/21 CMP GL 109, BUN 14, CR 1.01, NA 141, K 4.3, CHL 102, CA 9.5, AP 72, AST 13, ALT 10, MG 1.7, TSH 3.85 when was taking thyroid hormone regularly. 01/12/21 CBC WBC 6.8, RBC 4.71, HGB 13.2, HCT 40.5, PLT 191 She reports self-disco ntinuing thyroid supplement for 2 weeks, so she needs to resume. Hyperlipidemia 07761265 E78.5 Needs to keep LDL less than 70, and HDL more than 40. Continue statin and fish oil Had 01/02/18: TC 192, HDL 30, TG 274, LDL 120, CK 21. Began atorvastat in 20 mg qHS 01/22/18. Had FLP 02/19/18: TG 224, LDL 72. Patient does not want to increase statin at this time. Obtain FLP result per PCP (08/28/2018 ): LDL 122, TG 234. Improve diabetic control. Increased to atorvastat in 40 mg qHS 10/01/18. Had 11/05/18: LDL 65, TG 192. She stopped atorvastat in 12/2019, for muscle aches per patient. Had 07/14/20 LIPID: TC 176, TG 197, HDL 39, LDL 105. She was on rosuvastat in but this was stopped due to bilateral leg echos. Had 10/28/20: HDL 46, TG 204, LDL 136 She began pravastati n 40 mg qHS 11/28/20. For increased TG, improve control of DM, with hgbA1C 7.3% 11/30/20. Not a candidate for Vascepa given insurance. Had 01/12/21 LIPID TC 133, HDL 43, TR 160, LDL 66 Atypical chest pain 1025 93797 R07.89 Exertional . Had dobutamine nuclear stress 01/10/21: positive for ischemia, with partially reversible defect in kai-api kannan and septal areas (new c/w 07/30/17), LVEF 59%. Had ECHO 12/20/20: Atrial fibrillati on is present,LV chamber size is normal,the re is borderline LVH,The estimated LVEF is 55-60%(nor mal),diast olic function is indetermin ate due to atrial fibrillati on,there is trace tricuspid regurgitat ion,there is minimal pulmonic regurgitat ion, normal RVSP. Had Dobutamine Myocardial Perfusion Study 07/30/17 : Negative dobutamine stress test for ischemia. Normal LV systolic function. Abnormal stress test. Artifact noted. No previous study to compare. LVEF >60%. Consider costochond ritis, GERD, or diabetic gastropare sis. Essential hypertension [id number] I10 Patient's blood pressure is {{well-con trolled so mewhat well-contr olled* not well-contr olled}} on present medical therapy. Patient is {{tolerati ng, without difficulty ,* having side effects with}} the current medication s. I have {{not made made the following* }} changes to the current regimen. {{ Patient is advised to maintain a blood pressure diary.*}} Patient was advised to eat a low-sodium diet (2 grams sodium or less daily). BP monitor- XL. Increased to metoprolol succinate 25 mg qd 11/30/20, for tachypalpi tations and HTN. Atrial fibrillation 4943 6004 I48.91 Had EKG 11/30/20: afib 79 bpm. Continue metoprolol and diltiazem. Continue Coumadin. Had INR 2 week ago per patient report. Needs repeat INR in 4 weeks, on Coumadin 2 mg qHS. Began MgOxide 07/10/17 for Mg 1.1. On 08/08/17, Mg 1.2. Increased to magnesium oxide 400 mg bid 08/08/17. Increased to metoprolol succinate 25 mg qd 11/30/20, for tachypalpi tations and HTN. Chronic ob structive pulmonary disease 33911202 J44.9 Needs f/u with pulm. Type 2 eliazar betes mellitus 68318800 E11.59 Discussed importance of tight glycemic control to minimize cardiovasc ular disease progressio n. Aortic aneurysm 54328774 I71.9 Stable. Aorta measures 4.3 cm on 2D echo and on CT. Had CT of chest with contrast 11/23/20: ectasia of ascending aorta measuring 4.3 cm. Had ECHO 08/06/19: LV chamber size is normal,LV wall thickness is normal, EF 55-60%, diastolic function is indetermin ate due to atrial fibrillati on, the aortic valve is mildly calcified, there is mild aortic root calcificat ion, the mitral valve leaflet is mildly thickened, atrial fibrillati on. Ascending aortic diameter 4.[address] of chest 06/26/18: ectasia of ascending aorta 4.[address] of chest 11/25/17 : The ascending aorta measuring 4.2 cm, stable. There is pleural based intraparen chymal air space disease in the medial aspect of the right lower lobe measuring 9x 16 mm which is new compared to previous exam, needs 3mo f/u air space disease. Stable on CT scan 03/27/17: fusiform aneurysm of ascending aorta 4.2x4.1 cm. Needs pulm. f/u. Heart healthy, low-fat, low-choles terol, diabetic diet, with hand outside cutter consult. Optimize BP and cholestero l control., Obtain next chest CTA 11/23/2021. Obstructiv e sleep apnea syndrome 78838473 G47.33 On BiPAP. Continue. Followed by pulmonolog ist. She had titration study. Obesity 908261596 E66.9 20 lb. weight loss recommende d over the next 2 months. Hypothyroidism 15965576 E03.9 PCP now following. Had 08/2018: free T4 0.8 normal. Obtained normal TSH 12/2020. [id number] Darell Lozada MD [facility] [address] [place] [address] 04/04/2021 15:24:28 04/04/2021 16:14:58 Dyspnea on exertion 14202862 R06.09 with negative cathOSA treatment and follow up Hyperlipidemia 52168973 E78.5 Needs to keep LDL less than 70, and HDL more than 40. Continue statin and fish oil Had 01/02/18: TC 192, HDL 30, TG 274, LDL 120, CK 21. Began atorvastat in 20 mg qHS 01/22/18. Had FLP 02/19/18: TG 224, LDL 72. Patient does not want to increase statin at this time. Obtain FLP result per PCP (08/28/2018 ): LDL 122, TG 234. Improve diabetic control. Increased to atorvastat in 40 mg qHS 10/01/18. Had 11/05/18: LDL 65, TG 192. She stopped atorvastat in 12/2019, for muscle aches per patient. Had 07/14/20 LIPID: TC 176, TG 197, HDL 39, LDL 105. She was on rosuvastat in but this was stopped due to bilateral leg echos. Had 10/28/20: HDL 46, TG 204, LDL 136 She began pravastati n 40 mg qHS 11/28/20. For increased TG, improve control of DM, with hgbA1C 7.3% 11/30/20. Not a candidate for Vascepa given insurance. Had 01/12/21 LIPID TC 133, HDL 43, TR 160, LDL 66 Atypical chest pain 1025 23196 R07.89 Exertional . Had dobutamine nuclear stress 01/10/21: positive for ischemia, with partially reversible defect in kai-api kannan and septal areas (new c/w 07/30/17), LVEF 59%. Had ECHO 12/20/20: Atrial fibrillati on is present,LV chamber size is normal,the re is borderline LVH,The estimated LVEF is 55-60%(nor mal),diast olic function is indetermin ate due to atrial fibrillati on,there is trace tricuspid regurgitat ion,there is minimal pulmonic regurgitat ion, normal RVSP. Had Dobutamine Myocardial Perfusion Study 07/30/17 : Negative dobutamine stress test for ischemia. Normal LV systolic function. Abnormal stress test. Artifact noted. No previous study to compare. LVEF >60%. Consider costochond ritis, GERD, or diabetic gastropare sis. Essential hypertension 86126554 I10 Seems to be well compensate d now Atrial fibrillation 4943 6004 I48.91 Had EKG 11/30/20: afib 79 bpm. Continue metoprolol and diltiazem. Continue Coumadin. Had INR 2 week ago per patient report. Needs repeat INR in 4 weeks, on Coumadin 2 mg qHS. Began MgOxide 07/10/17 for Mg 1.1. On 08/08/17, Mg 1.2. Increased to magnesium oxide 400 mg bid 08/08/17. Chronic ob structive pulmonary disease 43175458 J44.9 Needs f/u with pulm. Type 2 eliazar betes mellitus 90456708 E11.59 Discussed importance of tight glycemic control to minimize cardiovasc ular disease progressio n. Aortic aneurysm 85715510 I71.9 Stable. Aorta measures 4.3 cm on 2D echo and on CT. Had CT of chest with contrast 11/23/20: ectasia of ascending aorta measuring 4.3 cm. Had ECHO 08/06/19: LV chamber size is normal,LV wall thickness is normal, EF 55-60%, diastolic function is indetermin ate due to atrial fibrillati on, the aortic valve is mildly calcified, there is mild aortic root calcificat ion, the mitral valve leaflet is mildly thickened, atrial fibrillati on. Ascending aortic diameter 4.[address] of chest 06/26/18: ectasia of ascending aorta 4.[address] of chest 11/25/17 : The ascending aorta measuring 4.2 cm, stable. There is pleural based intraparen chymal air space disease in the medial aspect of the right lower lobe measuring 9x 16 mm which is new compared to previous exam, needs 3mo f/u air space disease. Stable on CT scan 03/27/17: fusiform aneurysm of ascending aorta 4.2x4.1 cm. Needs pulm. f/u. Heart healthy, low-fat, low-choles terol, diabetic diet, with hand outside cutter consult. Optimize BP and cholestero l control., Obtain next chest CTA 11/23/2021. Obstructiv e sleep apnea syndrome 83858751 G47.33 On BiPAP. Continue. Followed by pulmonolog ist. She had titration study. Obesity 973719467 E66.9 20 lb. weight loss recommende d over the next 2 months. Hypothyroidism 07083009 E03.9 PCP now following. Had 08/2018: free T4 0.8 normal. Obtained normal TSH 12/2020. [id number] [address] [facility] [address] [place] [address] 08/30/2021 12:39:30 08/30/2021 15:11:59 Dyspnea on exertion 48435756 R06.09 ALIVIA treatment and follow up Hyperlipidemia 12037417 E78.5 Needs to keep LDL less than 70, and HDL more than 40. Continue statin and fish oil Had 01/02/18: TC 192, HDL 30, TG 274, LDL 120, CK 21. Began atorvastat in 20 mg qHS 01/22/18. Had FLP 02/19/18: TG 224, LDL 72. Patient does not want to increase statin at this time. Obtain FLP result per PCP (08/28/2018 ): LDL 122, TG 234. Improve diabetic control. Increased to atorvastat in 40 mg qHS 10/01/18. Had 11/05/18: LDL 65, TG 192. She stopped atorvastat in 12/2019, for muscle aches per patient. Had 07/14/20 LIPID: TC 176, TG 197, HDL 39, LDL 105. She was on rosuvastat in but this was stopped due to bilateral leg aches. Had 10/28/20: HDL 46, TG 204, LDL 136 She began pravastati n 40 mg qHS 11/28/20. For increased TG, improve control of DM, with hgbA1C 7.3% 11/30/20. Not a candidate for Vascepa given insurance. Had 01/12/21 LIPID TC 133, HDL 43, TR 160, LDL 66 Restart pravastati n 40 mg qHS 08/30/21 as leg aches persisted even after stopping pravastati n in the past. Atypical chest pain 1025 66183 R07.89 Exertional . Had catheteriz ation straight - procedure (PROC) 03/27/21:Mi ld CAD (mLAD 25% stenosis, ostial D1 50%). Normal left ventricula r function. Elevated left ventricula r end-diasto lic pressure. Had dobutamine nuclear stress 01/10/21: positive for ischemia, with partially reversible defect in kai-api kannan and septal areas (new c/w 07/30/17), LVEF 59%. Had ECHO 12/20/20: Atrial fibrillati on is present,LV chamber size is normal,the re is borderline LVH,The estimated LVEF is 55-60%(nor mal),diast olic function is indetermin ate due to atrial fibrillati on,there is trace tricuspid regurgitat ion,there is minimal pulmonic regurgitat ion, normal RVSP. Had Dobutamine Myocardial Perfusion Study 07/30/17 : Negative dobutamine stress test for ischemia. Normal LV systolic function. Abnormal stress test. Artifact noted. No previous study to compare. LVEF >60%. Consider costochond ritis, GERD, or diabetic gastropare sis. Essential hypertension 06646466 I10 Seems to be well compensate d now Atrial fibrillation 4943 6004 I48.91 Had EKG 11/30/20: afib 79 bpm. Continue metoprolol and diltiazem. Continue Coumadin. Had INR 2.1 per patient report. Needs repeat INR in 2 weeks, on Coumadin 2 mg/ 3 mg qHS. Began MgOxide 07/10/17 for Mg 1.1. On 08/08/17, Mg 1.2. Increased to magnesium oxide 400 mg bid 08/08/17. Chronic ob structive pulmonary disease 94727437 J44.9 Needs f/u with pulm. Type 2 eliazar betes mellitus 90765562 E11.59 Discussed importance of tight glycemic control to minimize cardiovasc ular disease progressio n. Aortic aneurysm 83863829 I71.9 Stable. Aorta measures 4.3 cm on 2D echo and on CT. Had CT of chest with contrast 11/23/20: ectasia of ascending aorta measuring 4.3 cm. Had ECHO 08/06/19: LV chamber size is normal,LV wall thickness is normal, EF 55-60%, diastolic function is indetermin ate due to atrial fibrillati on, the aortic valve is mildly calcified, there is mild aortic root calcificat ion, the mitral valve leaflet is mildly thickened, atrial fibrillati on. Ascending aortic diameter 4.[address] of chest 06/26/18: ectasia of ascending aorta 4.[address] of chest 11/25/17 : The ascending aorta measuring 4.2 cm, stable. There is pleural based intraparen chymal air space disease in the medial aspect of the right lower lobe measuring 9x 16 mm which is new compared to previous exam, needs 3mo f/u air space disease. Stable on CT scan 03/27/17: fusiform aneurysm of ascending aorta 4.2x4.1 cm. Needs pulm. f/u. Heart healthy, low-fat, low-choles terol, diabetic diet, with hand outside cutter consult. Optimize BP and cholestero l control., Obtain next chest CTA 11/23/2021. Obstructiv e sleep apnea syndrome [id number] G47.33 On BiPAP. Continue. Followed by pulmonolog ist. She had titration study. Obesity [id number] E66.9 20 lb. weight loss recommende d over the next 2 months. Hypothyroidism 24976727 E03.9 PCP now following. Had 08/2018: free T4 0.8 normal. Obtained normal TSH 12/2020. Coronary arteriosclerosis 02147755 I25.10 Mild CAD. Had catheteriz ation straight - procedure (PROC) 03/27/21: Mild CAD (mLAD 25% stenosis, ostial D1 50%). Normal left ventricula r function. Elevated left ventricula r end-diasto lic pressure. Not on ASA given mild CAD and need for Coumadin for afib. Needs to keep LDL less than 70, and HDL more than 40. Heart fail ure with normal ejection fraction [id number] I50.33 Had catheteriz ation straight - procedure (PROC) 03/27/21: Mild CAD (mLAD 25% stenosis, ostial D1 50%). Normal left ventricula r function. Elevated left ventricula r end-diasto lic pressure. Had ECHO 12/20/20: Atrial fibrillati on is present,LV chamber size is normal,the re is borderline LVH,The estimated LVEF is 55-60%(nor mal),diast olic function is indetermin ate due to atrial fibrillati on,there is trace tricuspid regurgitat ion,there is minimal pulmonic regurgitat ion. not using HCTZ given hx of increased Ca, Given 10 lb wt. gain and edema, began Lasix 20 mg qd 08/30/21. Eat daily banana as is doing. Obtain CMP, Mg, CBC, TSH, [place]P. [id number] [address] [facility] [address] [place] [address] 11/01/2021 11:17:11 11/01/2021 12:34:14 Dyspnea on exertion [id number] R06.09 ALIVIA treatment and follow up Hyperlipidemia 64713073 E78.5 Needs to keep LDL less than 70, and HDL more than 40. Continue statin and fish oil Had 01/02/18: TC 192, HDL 30, TG 274, LDL 120, CK 21. Began atorvastat in 20 mg qHS 01/22/18. Had FLP 02/19/18: TG 224, LDL 72. Patient does not want to increase statin at this time. Obtain FLP result per PCP (08/28/2018 ): LDL 122, TG 234. Improve diabetic control. Increased to atorvastat in 40 mg qHS 10/01/18. Had 11/05/18: LDL 65, TG 192. She stopped atorvastat in 12/2019, for muscle aches per patient. Had 07/14/20 LIPID: TC 176, TG 197, HDL 39, LDL 105. She was on rosuvastat in but this was stopped due to bilateral leg aches. Had 10/28/20: HDL 46, TG 204, LDL 136 She began pravastati n 40 mg qHS 11/28/20. For increased TG, improve control of DM, with hgbA1C 7.3% 11/30/20. Not a candidate for Vascepa given insurance. Had 01/12/21 LIPID TC 133, HDL 43, TR 160, LDL 66 Restart pravastati n 40 mg qHS 08/30/21 as leg aches persisted even after stopping pravastati n in the past. Had 10/18/21: INR 2.3, HDL 42, TG 169, LDL 69, Cr 1.07, K 4.6, Mg 1.9, TSH 2.7, hgb 13.7 Began isosapent ethyl 2 gm bid 11/01/21. Atypical chest pain 1025 [id number] R07.89 Improved. Had catheteriz ation straight - procedure (PROC) 03/27/21:Mi ld CAD (mLAD 25% stenosis, ostial D1 50%). Normal left ventricula r function. Elevated left ventricula r end-diasto lic pressure. Had dobutamine nuclear stress 01/10/21: positive for ischemia, with partially reversible defect in kai-api kannan and septal areas (new c/w 07/30/17), LVEF 59%. Had ECHO 12/20/20: Atrial fibrillati on is present,LV chamber size is normal,the re is borderline LVH,The estimated LVEF is 55-60%(nor mal),diast olic function is indetermin ate due to atrial fibrillati on,there is trace tricuspid regurgitat ion,there is minimal pulmonic regurgitat ion, normal RVSP. Had Dobutamine Myocardial Perfusion Study 07/30/17 : Negative dobutamine stress test for ischemia. Normal LV systolic function. Abnormal stress test. Artifact noted. No previous study to compare. LVEF >60%. Consider costochond ritis, GERD, or diabetic gastropare sis. Not on ASA in setting of warfarin. Essential hypertension [id number] I10 Patient's blood pressure is {{well-con trolled so mewhat well-contr olled* not well-contr olled}} on present medical therapy. Patient is {{tolerati ng, without difficulty ,* having side effects with}} the current medication s. I have {{not made* made the following} } changes to the current regimen. {{ Patient is advised to maintain a blood pressure diary.*}} Patient was advised to eat a low-sodium diet (2 grams sodium or less daily). BP diary. Had 10/18/21: INR 2.3, HDL 42, TG 169, LDL 69, Cr 1.07, K 4.6, Mg 1.9, TSH 2.7, hgb 13.7 Atrial fibrillation 4943 6004 I48.91 Had EKG 11/30/20: afib 79 bpm. Continue metoprolol and diltiazem. Continue Coumadin. Had INR 2.1 per patient report. Needs repeat INR in 2 weeks, on Coumadin 2 mg/ 3 mg qHS. Began MgOxide 07/10/17 for Mg 1.1. On 08/08/17, Mg 1.2. Increased to magnesium oxide 400 mg bid 08/08/17. Chronic ob structive pulmonary disease [id number] J44.9 Needs f/u with pulm. Type 2 eliazar betes mellitus 89739632 E11.59 Discussed importance of tight glycemic control to minimize cardiovasc ular disease progressio n. Aortic aneurysm 74470999 I71.9 Stable. Aorta measures 4.3 cm on 2D echo and on CT. Had CT of chest with contrast 11/23/20: ectasia of ascending aorta measuring 4.3 cm. Had ECHO 08/06/19: LV chamber size is normal,LV wall thickness is normal, EF 55-60%, diastolic function is indetermin ate due to atrial fibrillati on, the aortic valve is mildly calcified, there is mild aortic root calcificat ion, the mitral valve leaflet is mildly thickened, atrial fibrillati on. Ascending aortic diameter 4.[address] of chest 06/26/18: ectasia of ascending aorta 4.[address] of chest 11/25/17 : The ascending aorta measuring 4.2 cm, stable. There is pleural based intraparen chymal air space disease in the medial aspect of the right lower lobe measuring 9x 16 mm which is new compared to previous exam, needs 3mo f/u air space disease. Stable on CT scan 03/27/17: fusiform aneurysm of ascending aorta 4.2x4.1 cm. Needs pulm. f/u. Heart healthy, low-fat, low-choles terol, diabetic diet, with hand outside cutter consult. Optimize BP and cholestero l control., Obtain chest CTA 10/2021. Obstructiv e sleep apnea syndrome 10434990 G47.33 On BiPAP. Continue. Followed by pulmonolog ist. She had titration study. Obesity [id number] E66.9 20 lb. weight loss recommende d over the next 2 months. Hypothyroidism 68860916 E03.9 PCP now following. Had 08/2018: free T4 0.8 normal. Obtained normal TSH 12/2020. Coronary arteriosclerosis 47780181 I25.10 Mild CAD. Had catheteriz ation straight - procedure (PROC) 03/27/21: Mild CAD (mLAD 25% stenosis, ostial D1 50%). Normal left ventricula r function. Elevated left ventricula r end-diasto lic pressure. Not on ASA given mild CAD and need for Coumadin for afib. Needs to keep LDL less than 70, and HDL more than 40. Heart fail ure with normal ejection fraction [id number] I50.33 Had catheteriz ation straight - procedure (PROC) 03/27/21: Mild CAD (mLAD 25% stenosis, ostial D1 50%). Normal left ventricula r function. Elevated left ventricula r end-diasto lic pressure. Had ECHO 12/20/20: Atrial fibrillati on is present,LV chamber size is normal,the re is borderline LVH,The estimated LVEF is 55-60%(nor mal),diast olic function is indetermin ate due to atrial fibrillati on,there is trace tricuspid regurgitat ion,there is minimal pulmonic regurgitat ion. not using HCTZ given hx of increased Ca, Given 10 lb wt. gain and edema, began Lasix 20 mg qd 08/30/21. Eat daily banana as is doing. [id number] [address] [facility] [address] [place] [address] 01/03/2022 15:43:25 01/03/2022 18:14:37 Dyspnea on exertion [id number] R06.09 Increased. In setting of acute on chronic HF-pEF. ALIVIA treatment and follow up. Began Lasix 20 mg qd 01/03/22.Con tinue daily banana. BMP, Mg 2 wks. Obtain echo to evaluate for structural /functiona l disease. Had 12/06/21-C TA Chest. Stable fusiform ascending thoracic aortic aneurysm measuring 4 cm. Mediastina l and hilar lymphadeno danielle, most likely reactive, although metastatic disease and lymphoma should be considered . Diffuse groundglas s opacificat ion which may reflect atelectasi s, pneumonia and or edema. Had pulmonary follow-up recently and needs additional f/u. 20 lb. weight loss recommende d over the next 2 months. Hyperlipidemia 53306496 E78.5 Needs to keep LDL less than 70, and HDL more than 40. Continue statin and fish oil Had 01/02/18: TC 192, HDL 30, TG 274, LDL 120, CK 21. Began atorvastat in 20 mg qHS 01/22/18. Had FLP 02/19/18: TG 224, LDL 72. Patient does not want to increase statin at this time. Obtain FLP result per PCP (08/28/2018 ): LDL 122, TG 234. Improve diabetic control. Increased to atorvastat in 40 mg qHS 10/01/18. Had 11/05/18: LDL 65, TG 192. She stopped atorvastat in 12/2019, for muscle aches per patient. Had 07/14/20 LIPID: TC 176, TG 197, HDL 39, LDL 105. She was on rosuvastat in but this was stopped due to bilateral leg aches. Had 10/28/20: HDL 46, TG 204, LDL 136 She began pravastati n 40 mg qHS 11/28/20. For increased TG, improve control of DM, with hgbA1C 7.3% 11/30/20. Not a candidate for Vascepa given insurance. Had 01/12/21 LIPID TC 133, HDL 43, TR 160, LDL 66 Restart pravastati n 40 mg qHS 08/30/21 as leg aches persisted even after stopping pravastati n in the past. Had 10/18/21: INR 2.3, HDL 42, TG 169, LDL 69, Cr 1.07, K 4.6, Mg 1.9, TSH 2.7, hgb 13.7 Began isosapent ethyl 2 gm bid 11/01/21. Atypical chest pain 1025 57458 R07.89 Improved. Had catheteriz ation straight - procedure (PROC) 03/27/21:Mi ld CAD (mLAD 25% stenosis, ostial D1 50%). Normal left ventricula r function. Elevated left ventricula r end-diasto lic pressure. Had dobutamine nuclear stress 01/10/21: positive for ischemia, with partially reversible defect in kai-api kannan and septal areas (new c/w 07/30/17), LVEF 59%. Had ECHO 12/20/20: Atrial fibrillati on is present,LV chamber size is normal,the re is borderline LVH,The estimated LVEF is 55-60%(nor mal),diast olic function is indetermin ate due to atrial fibrillati on,there is trace tricuspid regurgitat ion,there is minimal pulmonic regurgitat ion, normal RVSP. Had Dobutamine Myocardial Perfusion Study 07/30/17 : Negative dobutamine stress test for ischemia. Normal LV systolic function. Abnormal stress test. Artifact noted. No previous study to compare. LVEF >60%. Consider costochond ritis, GERD, or diabetic gastropare sis. Not on ASA in setting of warfarin. Essential hypertension [id number] I10 Patient's blood pressure is {{well-con trolled so mewhat well-contr olled not well-contr olled*}} on present medical therapy. Patient is {{tolerati ng, without difficulty ,* having side effects with}} the current medication s. I have {{not made made the following* }} changes to the current regimen. {{ Patient is advised to maintain a blood pressure diary.*}} Patient was advised to eat a low-sodium diet (2 grams sodium or less daily). BP diary, with resumption of Lasix. Had 10/18/21: INR 2.3, HDL 42, TG 169, LDL 69, Cr 1.07, K 4.6, Mg 1.9, TSH 2.7, hgb 13.7 Had 12/29/21: Cr 0.93, K 4.5, Mg 1.9, Atrial fibrillation 4943 6004 I48.91 Had EKGs 11/30/20 and 01/03/22: afib 79 bpm. Continue metoprolol and diltiazem. Continue Coumadin. Had INR <2.0 per patient report. Needs repeat INR in 1 weeks, on Coumadin 2 mg/ 3 mg qHS. Began MgOxide 07/10/17 for Mg 1.1. On 08/08/17, Mg 1.2. Increased to magnesium oxide 400 mg bid 08/08/17. Chronic ob structive pulmonary disease 64341027 J44.9 Needs f/u with pulm. Type 2 eliazar betes mellitus 50826758 E11.59 Discussed importance of tight glycemic control to minimize cardiovasc ular disease progressio n. Aortic aneurysm 97193225 I71.9 Stable. Aorta measures 4.3 cm on 2D echo and on CT. Had 12/06/21-C TA Chest. Stable fusiform ascending thoracic aortic aneurysm measuring 4 cm. Mediastina l and hilar lymphadeno danielle, most likely reactive, although metastatic disease and lymphoma should be considered . Diffuse groundglas s opacificat ion which may reflect atelectasi s, pneumonia and or edema. Had CT of chest with contrast 11/23/20: ectasia of ascending aorta measuring 4.3 cm. Had ECHO 08/06/19: LV chamber size is normal,LV wall thickness is normal, EF 55-60%, diastolic function is indetermin ate due to atrial fibrillati on, the aortic valve is mildly calcified, there is mild aortic root calcificat ion, the mitral valve leaflet is mildly thickened, atrial fibrillati on. Ascending aortic diameter 4.[address] of chest 06/26/18: ectasia of ascending aorta 4.[address] of chest 11/25/17 : The ascending aorta measuring 4.2 cm, stable. There is pleural based intraparen chymal air space disease in the medial aspect of the right lower lobe measuring 9x 16 mm which is new compared to previous exam, needs 3mo f/u air space disease. Stable on CT scan 03/27/17: fusiform aneurysm of ascending aorta 4.2x4.1 cm. Needs pulm. f/u. Heart healthy, low-fat, low-choles terol, diabetic diet, with hand outside cutter consult. Optimize BP and cholestero l control., Obtain chest CTA 11/2022. Obstructiv e sleep apnea syndrome 26165492 G47.33 On BiPAP. Continue. Followed by pulmonolog ist. She had titration study. Obesity 203573883 E66.9 20 lb. weight loss recommende d over the next 2 months. Hypothyroidism 59034726 E03.9 PCP now following. Had 08/2018: free T4 0.8 normal. Obtained normal TSH 12/2020. Coronary arteriosclerosis 19825102 I25.10 Mild CAD. Had catheteriz ation straight - procedure (PROC) 03/27/21: Mild CAD (mLAD 25% stenosis, ostial D1 50%). Normal left ventricula r function. Elevated left ventricula r end-diasto lic pressure. Not on ASA given mild CAD and need for Coumadin for afib. Needs to keep LDL less than 70, and HDL more than 40. Heart fail ure with normal ejection fraction 838702309 I50.33 Had catheteriz ation straight - procedure (PROC) 03/27/21: Mild CAD (mLAD 25% stenosis, ostial D1 50%). Normal left ventricula r function. Elevated left ventricula r end-diasto lic pressure. Had ECHO 12/20/20: Atrial fibrillati on is present,LV chamber size is normal,the re is borderline LVH,The estimated LVEF is 55-60%(nor mal),diast olic function is indetermin ate due to atrial fibrillati on,there is trace tricuspid regurgitat ion,there is minimal pulmonic regurgitat ion. not using HCTZ given hx of increased Ca. Increased exertional dyspnea. In setting of acute on chronic HF-pEF. ALIVIA treatment and follow up. Obtain echo to evaluate for structural /functiona l disease. For left posterior knee pain and leg edema, obtain LE venous Doppler at [facility]. Had 12/29/21: Cr 0.93, K 4.5, Mg 1.9 BMP, Mg 2 wks. Edema of l ower extremity [id number] R60.0 For left posterior knee pain and leg edema, obtain LE venous Doppler at [facility]. [id number] [address] [facility] [address] [place] [address] 02/14/2022 15:05:40 02/14/2022 16:42:24 Dyspnea on exertion 98497543 R06.09 Increased. In setting of acute on chronic HF-pEF. ALIVIA treatment and follow up. Began Lasix 20 mg qd 01/03/22, increased to Lasix 40 mg qd 02/14/22 for leg edema.Cont inue daily banana. BMP, Mg 3 wks. Had 02/07/22 US, echocardio gram : LV chamber size is normal. There is normal global systolic function and contractil ity. The estimated left ventricle ejection fraction is 55-60% (normal). Had 12/06/21-C TA Chest. Stable fusiform ascending thoracic aortic aneurysm measuring 4 cm. Mediastina l and hilar lymphadeno danielle, most likely reactive, although metastatic disease and lymphoma should be considered . Diffuse groundglas s opacificat ion which may reflect atelectasi s, pneumonia and or edema. Had pulmonary follow-up recently and needs additional f/u. 20 lb. weight loss recommende d over the next 2 months. Hyperlipidemia 28250011 E78.5 Needs to keep LDL less than 70, and HDL more than 40. Continue statin and fish oil Had 01/02/18: TC 192, HDL 30, TG 274, LDL 120, CK 21. Began atorvastat in 20 mg qHS 01/22/18. Had FLP 02/19/18: TG 224, LDL 72. Patient does not want to increase statin at this time. Obtain FLP result per PCP (08/28/2018 ): LDL 122, TG 234. Improve diabetic control. Increased to atorvastat in 40 mg qHS 10/01/18. Had 11/05/18: LDL 65, TG 192. She stopped atorvastat in 12/2019, for muscle aches per patient. Had 07/14/20 LIPID: TC 176, TG 197, HDL 39, LDL 105. She was on rosuvastat in but this was stopped due to bilateral leg aches. Had 10/28/20: HDL 46, TG 204, LDL 136 She began pravastati n 40 mg qHS 11/28/20. For increased TG, improve control of DM, with hgbA1C 7.3% 11/30/20. Not a candidate for Vascepa given insurance. Had 01/12/21 LIPID TC 133, HDL 43, TR 160, LDL 66 Restart pravastati n 40 mg qHS 08/30/21 as leg aches persisted even after stopping pravastati n in the past. Had 10/18/21: INR 2.3, HDL 42, TG 169, LDL 69, Cr 1.07, K 4.6, Mg 1.9, TSH 2.7, hgb 13.7 Began isosapent ethyl 2 gm bid 11/01/21. Atypical chest pain 1025 72908 R07.89 Improved. Had catheteriz ation straight - procedure (PROC) 03/27/21:Mi ld CAD (mLAD 25% stenosis, ostial D1 50%). Normal left ventricula r function. Elevated left ventricula r end-diasto lic pressure. Had dobutamine nuclear stress 01/10/21: positive for ischemia, with partially reversible defect in kai-api kannan and septal areas (new c/w 07/30/17), LVEF 59%. Had ECHO 12/20/20: Atrial fibrillati on is present,LV chamber size is normal,the re is borderline LVH,The estimated LVEF is 55-60%(nor mal),diast olic function is indetermin ate due to atrial fibrillati on,there is trace tricuspid regurgitat ion,there is minimal pulmonic regurgitat ion, normal RVSP. Had Dobutamine Myocardial Perfusion Study 07/30/17 : Negative dobutamine stress test for ischemia. Normal LV systolic function. Abnormal stress test. Artifact noted. No previous study to compare. LVEF >60%. Consider costochond ritis, GERD, or diabetic gastropare sis. Not on ASA in setting of warfarin. Essential hypertension [id number] I10 Patient's blood pressure is {{well-con trolled so mewhat well-contr olled* not well-contr olled}} on present medical therapy. Patient is {{tolerati ng, without difficulty ,* having side effects with}} the current medication s. I have {{not made made the following* }} changes to the current regimen. {{ Patient is advised to maintain a blood pressure diary.*}} Patient was advised to eat a low-sodium diet (2 grams sodium or less daily). BP diary, with resumption of Lasix. Had 10/18/21: INR 2.3, HDL 42, TG 169, LDL 69, Cr 1.07, K 4.6, Mg 1.9, TSH 2.7, hgb 13.7 Had 12/29/21: Cr 0.93, K 4.5, Mg 1.9, Atrial fibrillation 4943 6004 I48.91 Had EKGs 11/30/20 and 01/03/22: afib 79 bpm. Had EKG 02/14/22: afib, 92 bpm. Continue metoprolol and diltiazem. Continue Coumadin. Had INR 2.2 01/2022 per patient report. Needs repeat INR in 2 weeks, on Coumadin 2 mg qHS. Began MgOxide 07/10/17 for Mg 1.1. On 08/08/17, Mg 1.2. Increased to magnesium oxide 400 mg bid 08/08/17. Chronic ob structive pulmonary disease 61953029 J44.9 Needs f/u with pulm. Type 2 eliazar betes mellitus 23126750 E11.59 Discussed importance of tight glycemic control to minimize cardiovasc ular disease progressio n. Aortic aneurysm 25330077 I71.9 Stable. Aorta measures 4.0-4.[address] and echo. Had 12/06/21-C TA Chest. Stable fusiform ascending thoracic aortic aneurysm measuring 4 cm. Mediastina l and hilar lymphadeno danielle, most likely reactive, although metastatic disease and lymphoma should be considered . Diffuse groundglas s opacificat ion which may reflect atelectasi s, pneumonia and or edema. Had 02/07/22 US, echocardio gram : LV chamber size is normal. There is normal global systolic function and contractil ity. The estimated left ventricle ejection fraction is 55-60% (normal). Aortic root 4.0 cm. Had ECHO 12/20/20: Atrial fibrillati on is present,LV chamber size is Had CT of chest with contrast 11/23/20: ectasia of ascending aorta measuring 4.3 cm. Had ECHO 08/06/19: LV chamber size is normal,LV wall thickness is normal, EF 55-60%, diastolic function is indetermin ate due to atrial fibrillati on, the aortic valve is mildly calcified, there is mild aortic root calcificat ion, the mitral valve leaflet is mildly thickened, atrial fibrillati on. Ascending aortic diameter 4.[address] of chest 06/26/18: ectasia of ascending aorta 4.[address] of chest 11/25/17 : The ascending aorta measuring 4.2 cm, stable. There is pleural based intraparen chymal air space disease in the medial aspect of the right lower lobe measuring 9x 16 mm which is new compared to previous exam, needs 3mo f/u air space disease. Stable on CT scan 03/27/17: fusiform aneurysm of ascending aorta 4.2x4.1 cm. Needs pulm. f/u. Heart healthy, low-fat, low-choles terol, diabetic diet, with hand outside cutter consult. Optimize BP and cholestero l control., Obtain chest CTA 11/2022. Obstructiv e sleep apnea syndrome 31712070 G47.33 On BiPAP. Continue. Followed by pulmonolog ist. She had titration study. Obesity 807104646 E66.9 20 lb. weight loss recommende d over the next 2 months. Hypothyroidism 20392509 E03.9 PCP now following. Had 08/2018: free T4 0.8 normal. Obtained normal TSH 12/2020. Had 10/18/21: INR 2.3, HDL 42, TG 169, LDL 69, Cr 1.07, K 4.6, Mg 1.9, TSH 2.7, hgb 13.7 Coronary arteriosclerosis 00117378 I25.10 Mild CAD. Had catheteriz ation straight - procedure (PROC) 03/27/21: Mild CAD (mLAD 25% stenosis, ostial D1 50%). Normal left ventricula r function. Elevated left ventricula r end-diasto lic pressure. Not on ASA given mild CAD and need for Coumadin for afib. Needs to keep LDL less than 70, and HDL more than 40. Heart fail ure with normal ejection fraction [id number] I50.33 Had catheteriz ation straight - procedure (PROC) 03/27/21: Mild CAD (mLAD 25% stenosis, ostial D1 50%). Normal left ventricula r function. Elevated left ventricula r end-diasto lic pressure. Had 02/07/22 US, echocardio gram: LV chamber size is normal. There is normal global systolic function and contractil ity. The estimated left ventricle ejection fraction is 55-60% (normal). Had ECHO 12/20/20: Atrial fibrillati on is present,LV chamber size is normal,the re is borderline LVH,The estimated LVEF is 55-60%(nor mal),diast olic function is indetermin ate due to atrial fibrillati on,there is trace tricuspid regurgitat ion,there is minimal pulmonic regurgitat ion. not using HCTZ given hx of increased Ca. In setting of acute on chronic HF-pEF. ALIVIA treatment and follow up. Had 12/29/21: Cr 0.93, K 4.5, Mg 1.9 Had 01/30/22: Cr 0.97, K 4.6, Mg 1.9 Increased from Lasix 20 mg qd to 40 mg qd 02/14/22. Edema of l ower extremity [id number] R60.0 Increased L>R leg since mid-December 2021. Had 02/07/22 US, echocardio gram: LV chamber size is normal. There is normal global systolic function and contractil ity. The estimated left ventricle ejection fraction is 55-60% (normal). Had US, doppler, venous 01-19-2022 : Negative left-sided venous Doppler study. Increased from Lasix 20 mg qd to 40 mg qd 02/14/22. Obtain BMP, Mg 3 wks. [id number] [address] [facility] [address] [place] [address] 07/18/2022 14:33:03 07/18/2022 16:16:03 Dyspnea on exertion 69309936 R06.09 Improved. In setting of acute on chronic HF-pEF. ALIVIA treatment and follow up. Began Lasix 20 mg qd 01/03/22, increased to Lasix 40 mg qd 02/14/22 for leg edema.Cont inue daily banana. Had 02/07/22 US, echocardio gram: LV chamber size is normal. There is normal global systolic function and contractil ity. The estimated left ventricle ejection fraction is 55-60% (normal). Had 12/06/21-C TA Chest. Stable fusiform ascending thoracic aortic aneurysm measuring 4 cm. Mediastina l and hilar lymphadeno danielle, most likely reactive, although metastatic disease and lymphoma should be considered . Diffuse groundglas s opacificat ion which may reflect atelectasi s, pneumonia and or edema. Had pulmonary follow-up recently and needs additional f/u. 20 lb. weight loss recommende d over the next 2 months.. Hyperlipidemia [id number] E78.5 Needs to keep LDL less than 70, and HDL more than 40. Continue statin and fish oil Had 01/02/18: TC 192, HDL 30, TG 274, LDL 120, CK 21. Began atorvastat in 20 mg qHS 01/22/18. Had FLP 02/19/18: TG 224, LDL 72. Patient does not want to increase statin at this time. Obtain FLP result per PCP (08/28/2018 ): LDL 122, TG 234. Improve diabetic control. Increased to atorvastat in 40 mg qHS 10/01/18. Had 11/05/18: LDL 65, TG 192. She stopped atorvastat in 12/2019, for muscle aches per patient. Had 07/14/20 LIPID: TC 176, TG 197, HDL 39, LDL 105. She was on rosuvastat in but this was stopped due to bilateral leg aches. Had 10/28/20: HDL 46, TG 204, LDL 136 She began pravastati n 40 mg qHS 11/28/20. For increased TG, improve control of DM, with hgbA1C 7.3% 11/30/20. Had 01/12/21 LIPID TC 133, HDL 43, TR 160, LDL 66 Restarted pravastati n 40 mg qHS 08/30/21 as leg aches persisted even after stopping pravastati n in the past. Patient discontinu ed pravastati n due concurrent R knee pain OA. Patient willing to resume pravastati n 08/2022. Had 10/18/21: INR 2.3, HDL 42, TG 169, LDL 69, Cr 1.07, K 4.6, Mg 1.9, TSH 2.7, hgb 13.7 Began isosapent ethyl 2 gm bid 11/01/21. Obtain FLP, CMP, Mg, TSH, CBC. Atypical chest pain 1025 [id number] R07.89 Improved. Had catheteriz ation straight - procedure (PROC) 03/27/21:Mi ld CAD (mLAD 25% stenosis, ostial D1 50%). Normal left ventricula r function. Elevated left ventricula r end-diasto lic pressure. Had dobutamine nuclear stress 01/10/21: positive for ischemia, with partially reversible defect in kai-api kannan and septal areas (new c/w 07/30/17), LVEF 59%. Had ECHO 12/20/20: Atrial fibrillati on is present,LV chamber size is normal,the re is borderline LVH,The estimated LVEF is 55-60%(nor mal),diast olic function is indetermin ate due to atrial fibrillati on,there is trace tricuspid regurgitat ion,there is minimal pulmonic regurgitat ion, normal RVSP. Had Dobutamine Myocardial Perfusion Study 07/30/17 : Negative dobutamine stress test for ischemia. Normal LV systolic function. Abnormal stress test. Artifact noted. No previous study to compare. LVEF >60%. Consider costochond ritis, GERD, or diabetic gastropare sis. Not on ASA in setting of warfarin. Essential hypertension [id number] I10 Patient's blood pressure is {{well-con trolled* s omewhat well-contr olled not well-contr olled}} on present medical therapy. Patient is {{tolerati ng, without difficulty ,* having side effects with}} the current medication s. I have {{not made made the following* }} changes to the current regimen. {{ Patient is advised to maintain a blood pressure diary.*}} Patient was advised to eat a low-sodium diet (2 grams sodium or less daily). BP diary, with resumption of Lasix. Had 10/18/21: INR 2.3, HDL 42, TG 169, LDL 69, Cr 1.07, K 4.6, Mg 1.9, TSH 2.7, hgb 13.7 Had 12/29/21: Cr 0.93, K 4.5, Mg 1.9, Had 03/27/2022 : BMP-GL 182(H) BUN 20 CR 1.10(H) NA 138 K 4.5 CA 10.1 MAG 2.0 Atrial fibrillation 4943 6004 I48.91 Had EKGs 11/30/20 and 01/03/22: afib 79 bpm. Had EKG 02/14/22: afib, 92 bpm. Continue metoprolol and diltiazem. Continue Coumadin. No bleeding or falls. Had INR 2.2 07/2021 per patient report. Needs repeat INR in 3 weeks per [facility], on Coumadin 2 mg alternate with 3 mg qHS. Began MgOxide 07/10/17 for Mg 1.1. On 08/08/17, Mg 1.2. Increased to magnesium oxide 400 mg bid 08/08/17. Chronic ob structive pulmonary disease [id number] J44.9 Needs f/u with pulm. Type 2 eliazar betes mellitus 90144521 E11.59 Discussed importance of tight glycemic control to minimize cardiovasc ular disease progressio n. Aortic aneurysm [id number] I71.9 Stable. Aorta measures 4.0-4.[address] and echo. Had 12/06/21-C TA Chest. Stable fusiform ascending thoracic aortic aneurysm measuring 4 cm. Mediastina l and hilar lymphadeno danielle, most likely reactive, although metastatic disease and lymphoma should be considered . Diffuse groundglas s opacificat ion which may reflect atelectasi s, pneumonia and or edema. Had 02/07/22 US, echocardio gram : LV chamber size is normal. There is normal global systolic function and contractil ity. The estimated left ventricle ejection fraction is 55-60% (normal). Aortic root 4.0 cm. Had ECHO 12/20/20: Atrial fibrillati on is present,LV chamber size is Had CT of chest with contrast 11/23/20: ectasia of ascending aorta measuring 4.3 cm. Had ECHO 08/06/19: LV chamber size is normal,LV wall thickness is normal, EF 55-60%, diastolic function is indetermin ate due to atrial fibrillati on, the aortic valve is mildly calcified, there is mild aortic root calcificat ion, the mitral valve leaflet is mildly thickened, atrial fibrillati on. Ascending aortic diameter 4.[address] of chest 06/26/18: ectasia of ascending aorta 4.[address] of chest 11/25/17 : The ascending aorta measuring 4.2 cm, stable. There is pleural based intraparen chymal air space disease in the medial aspect of the right lower lobe measuring 9x 16 mm which is new compared to previous exam, needs 3mo f/u air space disease. Stable on CT scan 03/27/17: fusiform aneurysm of ascending aorta 4.2x4.1 cm. Needs pulm. f/u. Heart healthy, low-fat, low-choles terol, diabetic diet, with hand outside cutter consult. Optimize BP and cholestero l control., Obtain chest CTA 11/2022. Obstructiv e sleep apnea syndrome [id number] G47.33 On BiPAP. Continue. Followed by pulmonolog ist. She had titration study. Obesity [id number] E66.9 20 lb. weight loss recommende d over the next 2 months. Hypothyroidism 48207245 E03.9 PCP now following. Had 08/2018: free T4 0.8 normal. Obtained normal TSH 12/2020. Had 10/18/21: INR 2.3, HDL 42, TG 169, LDL 69, Cr 1.07, K 4.6, Mg 1.9, TSH 2.7, hgb 13.7 Coronary arteriosclerosis 73387572 I25.10 Mild CAD. Had catheteriz ation straight - procedure (PROC) 03/27/21: Mild CAD (mLAD 25% stenosis, ostial D1 50%). Normal left ventricula r function. Elevated left ventricula r end-diasto lic pressure. Began ASA 81 mg qd 07/18/22. Needs to keep LDL less than 70, and HDL more than 40. Heart fail ure with normal ejection fraction [id number] I50.33 Had catheteriz ation straight - procedure (PROC) 03/27/21: Mild CAD (mLAD 25% stenosis, ostial D1 50%). Normal left ventricula r function. Elevated left ventricula r end-diasto lic pressure. Had 02/07/22 US, echocardio gram: LV chamber size is normal. There is normal global systolic function and contractil ity. The estimated left ventricle ejection fraction is 55-60% (normal). Had ECHO 12/20/20: Atrial fibrillati on is present,LV chamber size is normal,the re is borderline LVH,The estimated LVEF is 55-60%(nor mal),diast olic function is indetermin ate due to atrial fibrillati on,there is trace tricuspid regurgitat ion,there is minimal pulmonic regurgitat ion. not using HCTZ given hx of increased Ca. In setting of acute on chronic HF-pEF. ALIVIA treatment and follow up. Had 12/29/21: Cr 0.93, K 4.5, Mg 1.9 Had 01/30/22: Cr 0.97, K 4.6, Mg 1.9 Increased from Lasix 20 mg qd to 40 mg qd 02/14/22. Edema of l ower extremity [id number] R60.0 Improved. Had 02/07/22 US, echocardio gram: LV chamber size is normal. There is normal global systolic function and contractil ity. The estimated left ventricle ejection fraction is 55-60% (normal). Had US, doppler, venous 01-19-2022 : Negative left-sided venous Doppler study. Increased from Lasix 20 mg qd to 40 mg qd 02/14/22. Obtain FLP, CMP, Mg, TSH, CBC. [id number] [place] [address] 11/14/2022 13:57:15 11/14/2022 15:23:17 Dyspnea on exertion [id number] R06.09 Improved. In setting of acute on chronic HF-pEF. ALIVIA treatment and follow up. Had 02/07/22 US, echocardio gram: LV chamber size is normal. There is normal global systolic function and contractil ity. The estimated left ventricle ejection fraction is 55-60% (normal). Had 12/06/21-C TA Chest. Stable fusiform ascending thoracic aortic aneurysm measuring 4 cm. Mediastina l and hilar lymphadeno danielle, most likely reactive, although metastatic disease and lymphoma should be considered . Diffuse groundglas s opacificat ion which may reflect atelectasi s, pneumonia and or edema. Had pulmonary follow-up recently and needs additional f/u. 20 lb. weight loss recommende d over the next 2 months.. Hyperlipidemia 40139853 E78.5 Needs to keep LDL less than 70, and HDL more than 40. Continue statin and fish oil Had 01/02/18: TC 192, HDL 30, TG 274, LDL 120, CK 21. Began atorvastat in 20 mg qHS 01/22/18. Had FLP 02/19/18: TG 224, LDL 72. Patient does not want to increase statin at this time. Obtain FLP result per PCP (08/28/2018 ): LDL 122, TG 234. Improve diabetic control. Increased to atorvastat in 40 mg qHS 10/01/18. Had 11/05/18: LDL 65, TG 192. She stopped atorvastat in 12/2019, for muscle aches per patient. Had 07/14/20 LIPID: TC 176, TG 197, HDL 39, LDL 105. She was on rosuvastat in but this was stopped due to bilateral leg aches. Had 10/28/20: HDL 46, TG 204, LDL 136 She began pravastati n 40 mg qHS 11/28/20. For increased TG, improve control of DM, with hgbA1C 7.3% 11/30/20. Had 01/12/21 LIPID TC 133, HDL 43, TR 160, LDL 66 Restarted pravastati n 40 mg qHS 08/30/21 as leg aches persisted even after stopping pravastati n in the past. Patient discontinu ed pravastati n due concurrent R knee pain OA. Patient willing to resume pravastati n 11/14/22.. Had 10/18/21: INR 2.3, HDL 42, TG 169, LDL 69, Cr 1.07, K 4.6, Mg 1.9, TSH 2.7, hgb 13.7 Began isosapent ethyl 2 gm bid 11/01/21 but patient discontinu ed it due to dysphagia 08/2022. Had 11/10/22: LDL 107, gluc 147, Cr 1.27 high, K 4.6, Mg 1.9, TSH 1.63, hgb 15.2, off pravastati n. Patient discontinu ed pravastati n due concurrent R knee pain OA. Patient willing to resume pravastati n 11/14/22.. Obtain FLP, CMP, Mg, TSH, CBC. Atypical chest pain 1025 53694 R07.89 Has focal tenderness noted left anterior and posterior chest. Had catheteriz ation straight - procedure (PROC) 03/27/21:Mi ld CAD (mLAD 25% stenosis, ostial D1 50%). Normal left ventricula r function. Elevated left ventricula r end-diasto lic pressure. Had dobutamine nuclear stress 01/10/21: positive for ischemia, with partially reversible defect in kai-api kannan and septal areas (new c/w 07/30/17), LVEF 59%. Had ECHO 12/20/20: Atrial fibrillati on is present,LV chamber size is normal,the re is borderline LVH,The estimated LVEF is 55-60%(nor mal),diast olic function is indetermin ate due to atrial fibrillati on,there is trace tricuspid regurgitat ion,there is minimal pulmonic regurgitat ion, normal RVSP. Had Dobutamine Myocardial Perfusion Study 07/30/17 : Negative dobutamine stress test for ischemia. Normal LV systolic function. Abnormal stress test. Artifact noted. No previous study to compare. LVEF >60%. Consider costochond ritis, GERD, or diabetic gastropare sis. Obtain CMP, Mg, FLP. If Cr improves and if chest pain persists, consider CTA chest given aortic aneurysm. Essential hypertension [id number] I10 Patient's blood pressure is {{well-con trolled* s omewhat well-contr olled not well-contr olled}} on present medical therapy. Patient is {{tolerati ng, without difficulty ,* having side effects with}} the current medication s. I have {{not made* made the following} } changes to the current regimen. {{ Patient is advised to maintain a blood pressure diary.*}} Patient was advised to eat a low-sodium diet (2 grams sodium or less daily). BP diary, with resumption of Lasix. Had 10/18/21: INR 2.3, HDL 42, TG 169, LDL 69, Cr 1.07, K 4.6, Mg 1.9, TSH 2.7, hgb 13.7 Had 12/29/21: Cr 0.93, K 4.5, Mg 1.9, Had 03/27/2022 : BMP-GL 182(H) BUN 20 CR 1.10(H) NA 138 K 4.5 CA 10.1 MAG 2.0 Atrial fibrillation 4943 6004 I48.91 Had EKGs 11/30/20 and 01/03/22: afib 79 bpm. Had EKG 02/14/22: afib, 92 bpm. Had EKG 11/14/22: afib 78 bpm. Continue metoprolol and diltiazem. Continue Coumadin. No bleeding or falls, except fell in hospital for psychiatri c admission with meds adjusted with low BP and COVID 08/2022. Had INR 2.1 11/02/2021 per patient report. Needs repeat INR in 3 weeks per [facility], on Coumadin 2 mg qHS. Began MgOxide 07/10/17 for Mg 1.1. On 08/08/17, Mg 1.2. Increased to magnesium oxide 400 mg bid 08/08/17. Chronic ob structive pulmonary disease 61787819 J44.9 Needs f/u with pulm. Type 2 eliazar betes mellitus [id number] E11.59 Discussed importance of tight glycemic control to minimize cardiovasc ular disease progressio n. Aortic aneurysm 11250418 I71.9 Stable. Aorta measures 4.0-4.[address] and echo. Had 12/06/21-C TA Chest. Stable fusiform ascending thoracic aortic aneurysm measuring 4 cm. Mediastina l and hilar lymphadeno danielle, most likely reactive, although metastatic disease and lymphoma should be considered . Diffuse groundglas s opacificat ion which may reflect atelectasi s, pneumonia and or edema. Had 02/07/22 US, echocardio gram : LV chamber size is normal. There is normal global systolic function and contractil ity. The estimated left ventricle ejection fraction is 55-60% (normal). Aortic root 4.0 cm. Had ECHO 12/20/20: Atrial fibrillati on is present,LV chamber size is Had CT of chest with contrast 11/23/20: ectasia of ascending aorta measuring 4.3 cm. Had ECHO 08/06/19: LV chamber size is normal,LV wall thickness is normal, EF 55-60%, diastolic function is indetermin ate due to atrial fibrillati on, the aortic valve is mildly calcified, there is mild aortic root calcificat ion, the mitral valve leaflet is mildly thickened, atrial fibrillati on. Ascending aortic diameter 4.[address] of chest 06/26/18: ectasia of ascending aorta 4.[address] of chest 11/25/17 : The ascending aorta measuring 4.2 cm, stable. There is pleural based intraparen chymal air space disease in the medial aspect of the right lower lobe measuring 9x 16 mm which is new compared to previous exam, needs 3mo f/u air space disease. Stable on CT scan 03/27/17: fusiform aneurysm of ascending aorta 4.2x4.1 cm. Needs pulm. f/u. Heart healthy, low-fat, low-choles terol, diabetic diet, with hand outside cutter consult. Optimize BP and cholestero l control., Obtain chest CTA 11/2022. Obstructiv e sleep apnea syndrome [id number] G47.33 On BiPAP. Continue. Followed by pulmonolog ist. She had titration study. Obesity [id number] E66.9 20 lb. weight loss recommende d over the next 2 months. Hypothyroidism 73782668 E03.9 PCP now following. Had 08/2018: free T4 0.8 normal. Obtained normal TSH 12/2020. Had 10/18/21: INR 2.3, HDL 42, TG 169, LDL 69, Cr 1.07, K 4.6, Mg 1.9, TSH 2.7, hgb 13.7 Coronary arteriosclerosis 93452748 I25.10 Mild CAD. Had catheteriz ation straight - procedure (PROC) 03/27/21: Mild CAD (mLAD 25% stenosis, ostial D1 50%). Normal left ventricula r function. Elevated left ventricula r end-diasto lic pressure. Began ASA 81 mg qd 07/18/22. Needs to keep LDL less than 70, and HDL more than 40. Heart fail ure with normal ejection fraction [id number] I50.33 Had catheteriz ation straight - procedure (PROC) 03/27/21: Mild CAD (mLAD 25% stenosis, ostial D1 50%). Normal left ventricula r function. Elevated left ventricula r end-diasto lic pressure. Had 02/07/22 US, echocardio gram: LV chamber size is normal. There is normal global systolic function and contractil ity. The estimated left ventricle ejection fraction is 55-60% (normal). Had ECHO 12/20/20: Atrial fibrillati on is present,LV chamber size is normal,the re is borderline LVH,The estimated LVEF is 55-60%(nor mal),diast olic function is indetermin ate due to atrial fibrillati on,there is trace tricuspid regurgitat ion,there is minimal pulmonic regurgitat ion. not using HCTZ given hx of increased Ca. In setting of acute on chronic HF-pEF. ALIVIA treatment and follow up. Had 12/29/21: Cr 0.93, K 4.5, Mg 1.9 Had 01/30/22: Cr 0.97, K 4.6, Mg 1.9 Increased from Lasix 20 mg qd to 40 mg qd 02/14/22. Edema of l ower extremity [id number] R60.0 Improved. Had 02/07/22 US, echocardio gram: LV chamber size is normal. There is normal global systolic function and contractil ity. The estimated left ventricle ejection fraction is 55-60% (normal). Had US, doppler, venous 01-19-2022 : Negative left-sided venous Doppler study. Increased from Lasix 20 mg qd to 40 mg qd 02/14/22. Had 11/10/22: LDL 107, gluc 147, Cr 1.27 high, K 4.6, Mg 1.9, TSH 1.63, hgb 15.2 Health Concerns Section Related Observation LastModified by Organization Detai ls LastModified Time None Recorded Concern Status LastModified by Organization Details LastModified Time None Recorded Advance Directives Directive None Recorded Payers Encounter Date Sequence Insurance Name Policy Number Policy Herrmann Covered Member ID Herrmann Member ID Guarantor Name 11/01/2021 1 [place] Carol Gee [id number] Carol Gee 11/01/2021 2 [facility] - DOS ON OR AFTER 20 (MEDICAID REPLACEMENT - HMO) Carol Gee [id number] Carol Gee 01/03/2022 1 [place] Gee [id number] Carol Gee 01/03/2022 2 [facility] - DOS ON OR AFTER 20 (MEDICAID REPLACEMENT - HMO) Carol Gee [id number] Carol Gee 02/14/2022 1 [place] Gee [id number] Carol Gee 02/14/2022 2 [place] [facility] Carol Gee [id number] Carol Gee 07/18/2022 1 [place] Gee [id number] Carol Gee 07/18/2022 2 [place] [facility] Carol Gee [id number] Carol Gee 11/14/2022 1 [place] Gee [id number] Carol Gee 11/14/2022 2 [place] [facility] Carol Gee [id number] Carol Gee Notes Date Note Type Note Provider Name and Address Organization Details Recorded Time 11/01/2021 text/html 11/01/21 CC: Cardiac follow up, dyspnea on exertion 65 year-old white woman with CAD, HF-pEF, atrial fibrillation, COVID-19 pneumonia (positive 06/20/20, not treated), hypertension, ascending aortic aneurysm, hypothyroidism, Type 2 DM, COPD, asthma, ALIVIA on BiPAP with 3 L/m and 2L/m with activity, seasonal allergies, psoriatic arthritis, and anemia, is here for follow up. She was last seen in the clinic on 08/30/21, since then she still gets fewer palpitations with exertional dyspnea. Had a cath with mild coronary artery disease, but with elevated LVEDP. Denies chest pain.Denies shortness of breath at rest. Has mild dyspnea on exertion, stable.No orthopnea. No PNDs.Frequent palpitationswith activity.Denies dizziness. Denies syncope or near syncope.Reports less occasional bilateral ankle or leg edema.No major bleeding events.No reported side effects from medications. Taking medications as prescribed with no missed doses.Denies snoring, daytime somnolence and AM headache.*Last LDL was 66 done on 01/11/21 .Pt takes. She has followed up with pulmonary provider after being found to have a nodule on CT Chest on 11/25/17 showing pleural based intraparenchymal air space disease in the medial aspect of the right lower lobe measuring 9x 16 mm. She went to [facility] on 02/05/18 for a consultation with a surgeon to see about biopsy vs surgical removal of nodule. She had PFT testing 01/29/18. She had CT scan 03/12/2018 showed nodule stable. She had CT scan 05/2018 showed nodule resolved. She was at [facility] on 11/27/17 for elevated calcium levels (13.2). Dr. Ring (PCP) called her to go to the ER for elevated calcium. She was off thyroid medication at this time and it was restarted in the hospital. Had PTH Scan which was negative for adenoma. Had thyroid US which showed 6 mm left thyroid hypoechoic mass, likely benign. She had Bone Density test which showed no significant abnormality. She reports increased calcium, 60 lb weight loss in last several months. She also feels very fatigued and is sleeping more than normal and taking naps throughout day. Pt has ALIVIA using CPAP but has found to have 46 apnea events. She is on BiPap now. She is on Coumadin and has it checked at lab per [facility]. She was in [facility] in 05/22/17 because of atrial fibrillation with rapid ventricular response, with associated CHF with preserved EF. Had ECHO 08/06/19: LV chamber size is normal,LV wall thickness is normal, EF 55-60%, diastolic function is indeterminate due to atrial fibrillation, the aortic valve is mildly calcified, there is mild aortic root calcification, the mitral valve leaflet is mildly thickened, atrial fibrillation. Ascending aortic diameter 4.3 cm. Had ECHO done on 05/22/17 showed Normal left ventricular size. Mild concentric left ventricular hypertrophy. Normal global left ventricular systolic function. Ejection fraction is measured at 67%. Atrial fibrillation. Technically difficult study with limited views. Aortic root is mildly dilated. Diastolic function difficult to determine in the setting of atrial fibrillation. No prior echo available for comparison. Had Dobutamine Myocardial Perfusion Study 07/30/17 : Negative dobutamine stress test for ischemia. Normal LV systolic function. Abnormal stress test. Artifact noted. No previous study to compare. LVEF >60%. Had negative right venous Doppler study on 08/23/17. Swelling resolved. Had CT of chest with contrast 11/23/20: ectasia of ascending aorta measuring 4.[address] of chest 06/26/18: ectasia of ascending aorta 4.[address] of chest 11/25/17 : The ascending aorta measuring 4.2 cm, stable. There is pleural based intraparenchymal air space disease in the medial aspect of the right lower lobe measuring 9x 16 mm which is new compared to previous exam, needs 3 mo f/u. Had catheterization straight - procedure (PROC) 03/27/21:Mild CAD (mLAD 25% stenosis, ostial D1 50%). Normal left ventricular function. Elevated left ventricular end-diastolic pressure. Had dobutamine nuclear stress 01/10/21: positive for ischemia, with partially reversible defect in kai-apical and septal areas (new c/w 07/30/17), LVEF 59%. Had ECHO 12/20/20: Atrial fibrillation is present,LV chamber size is normal,there is borderline LVH,The estimated LVEF is 55-60%(normal),diastol ic function is indeterminate due to atrial fibrillation,there is trace tricuspid regurgitation,there is minimal pulmonic regurgitation. Results from this visit, or from the past: Had 10/18/21: INR 2.3, HDL 42, TG 169, LDL 69, Cr 1.07, K 4.6, Mg 1.9, TSH 2.7, hgb 13.7 08/28/21 - INR : 2.1(H)PT 19.8(H) PT/INR [id number] 1.7 H PT 17.2 H 03/27/21:Na 137,K 4.6,CL 100,CO2 28,Glu 176,Bun 11,Cr 0.9. 03/27/21:WBC 7.1,RBC 5.06,HGB 14.0,HCT 44.3,PLT 197. 03/27/21:PT 14.7,INR 1.1,aPTT 41. 7 CMP GL 109, BUN 14, CR 1.01, NA 141, K 4.3, CHL 102, CA 9.5, AP 72, AST 13, ALT 10, MG 1.7, TSH 3.85 01/12/21 CBC WBC 6.8, RBC 4.71, HGB 13.2, HCT 40.5, PLT 191 01/12/21 LIPID TC 133, HDL 43, TR 160, LDL 66 11/21/20 PT/INR INR 2.5, PT 25.1 10/28/20: TG 204, LDL LIPID: TC 216, HDL 46, TG 204, LDL 136 07/14/20 CMP: Na 138, K 4.5, CH 101, Co2 27, GL 133, B 16, CR 0.91, AST 13, ALT 9 07/14/20 LIPID: TC 176, TG 197, HDL 39, LDL 105 07/14/20 CBC: WBC: 7.5, RBC 4.85, HGB 13.7, HCT 41.5, PLT 239 06/09/20 PT/INR: PT 24.4, INR 2.5 01/04/20 PT/INR: PT 19.5, INR 2.0 12/02/18: PT 19.3, INR 1.9 11/05/18 TSH: 3.42 T4 .85 BMP: NA 138, K 4.1, CL 101, CO2 27, GLU 165, BUN 21, CR 1.145 FLP: TC 126, TR 192, HDL 35, LDL 65 03-07-2018 NA: 134, K: 4.5, CL: 98, CO2: 28, GLU: 442, BUN: 24, CR: 02/19/18: Na 135 ,K 4.3 ,CL 100 ,CO2 27 ,GLU 266 ,BUN 21,CR 1.17, 02/19/18: TC 133 ,TG 224 ,HDL 30,LDL 72 , 01/03/18: TSH 3.19, T4 1.1 01/02/18: Na 137, K 4.5, Cl 99, CO2 27, GLU 261, BUN 29, Cr 1.: TC 192, HDL 30, TG 274, LDL 120 10/01/17 : Na 138 , K 5.0 , CL 103 ,CO2 26 ,GLU 202 ,BUN 25 ,CR 1.22 ,CK 14,TC 158 ,TG 235 ,HDL 33 ,LDL 92,AST16 ,ALT 11,PT 32.9, INR 3.1 09/18/17 CMP: SOD 136, K 4.3, CL 98, CO2 28, GL 206, BUN 18, CR 1.14, AST 15, ALT 10; SM 08/08/2017: NA:139, K:4.4, CL:101, GLU:243, BUN:19, CR:1.2, AST:13, ALT:10, M.2 07/12/17: Mg 1.3 07/12/17: TSH 5.52, FT4 1.1 07/12/17: HGB A1C 7.4 07/02/17: Na 140 ,K 4.6 , CL 98 ,CO2 29 , GLU 167 , BUN 20 ,CR 1.3 ,AST 16 ,ALT13 06/17/17: Na 137 ,K 4.8 , CL 96 ,CO2 32 ,GLU 172 ,BUN 40 ,CR 1.57 ,HB 14.0, HT 42.9 06/17/17: CBC 9.5, HGB 14, HCT 42.9, PLT 330. 06/11/17: Na 134 ,K 4.5 ,CL 86 ,CO2 35 ,GLU 173,BUN 66 ,CR 2.69 , AST 21,ALT 14 05/28/17: Na 137 ,K 4.5 , CL 97 ,CO2 29,GLU 162 ,BUN 19 ,CR 0.77, 05/21/17: WBC 10.4, HGB 14.8, HCT 45.1, PLT 328. EKG 04-04-2021: atrial fibrillation with normal ventricular response. P: no analysis. QRS: normal. ST-T: normal. conclusion: abnormal ECG. 11/30/20 EKG: AFib. QRS: normal. ST-T: normal. conclusion: abnormal ECG. 07/13/20 EKG: A FIB 01/25/20 EKG: Atrial Fibrillation 04/08/19 EKG: probably atrial fibrillation EKG 12/08/18: EKG machine before i could print. EKG 10/01/18 : Probably Atrial Fibrillation. EK04/02/18 Probably atrial fibrillation. EKG 12/03/17:Atrial fibrillation with slow ventricular response. Abnormal ECG. EKG 11/18/17: Atrial fibrillation with normal ventricular response. P: no analysis. QRS: normal. ST-T: normal. Additional remarks: long QT interval. Conclusion: abnormal ECG EKG 08/08/2017: Probably Atrial Fibrillation; Low voltage, chest leads; Non-specific inverted T waves, inferior leads EKG 06/26/17 : atrial fibrillation with normal ventricular response. P: no analysis. QRS: low voltage in precordial leads. ST-T: minor left precordial ST-T changes, probably aspecific change. small negative T in V4 V5. with flat or low negative T in V6. additional remarks: long QT interval. Conclusion: abnormal ECG EKG 06/03/17: Atrial fibrillation. Low voltage, chest leads ECHO 12/20/20:Atrial fibrillation is present,LV chamber size is normal,there is borderline LVH,The estimated LVEF is 55-60%(nornmal),diasto lic function is indetermionate due to atrial fibrillation,there is trace tricuspid regurgitation,there is minimal pulmonic regurgitation. ECHO 08/06/19:LV chamber size is normal,LV wall thickness is normal,EF 55-60%,diastolic function is ndeterminate due to atrial fibrillation,the aortic valve is mildly calcifeid, there is mild aortic root calcification,the mitral valve leaflet is mildly thickened,atrial fibrillation. Dobutamine Myocardial Perfusion Study 07/30/17 : Negative dobutamine stress test for ischemia. Normal LV systolic function. Abnormal stress test. Artifact noted. No previous study to compare. LVEF >60%. CXR 07/14/2020: No acute cardiopulmonary abnormality. XR, Chest 05/28/17:no significance change of diffuse bilateral pulmonary infiltrates since 05/21/17,greater in the lower lung zones. ECHO 05/22/17:Normal LV size,mild LVH, Normal global LV systolic function,EF 67%,atrial fibrillation, technically difficult study with limited views, Aortic root is mildly dilated , diastolic function difficult to determine in the setting of atrial fibrillation. US, Doppler, Venous 08/23/17 : Negative right venous study. Had CT of chest with contrast 11/23/20: ectasia of ascending aorta measuring 4.[address] of chest 06/26/18: ectasia of ascending aorta 4.[address] of chest 11/25/17 : The ascending aorta measuring 4.2 cm, stable. There is pleural based intraparenchymal air space disease in the medial aspect of the rightlower lobe measuring 9x 16 mm which is new compared to previous exam, needs 3mo f/u. 03-27-2021 LHC:Mild CAD. Normal left ventricular function. Elevated left ventricular end-diastolic pressure. Franco sinha ID - [facility] 11/01/2021 12:27:41 01/03/2022 text/html 01/03/22 CC: Cardiac follow up, dyspnea on exertion 66 year-old white woman with CAD, HF-pEF, atrial fibrillation, COVID-19 pneumonia (positive 06/20/20, not treated), hypertension, ascending aortic aneurysm, hypothyroidism, Type 2 DM, COPD, asthma, ALIVIA on BiPAP with 3 L/m and 2L/m with activity, seasonal allergies, psoriatic arthritis, and anemia, is here for follow up. She was last seen in the clinic on 11/01/21, since then she still gets fewer palpitations, but with increased exertional dyspnea since late 11/2021. Had a cath with mild coronary artery disease, but with elevated LVEDP. Denies chest pain.Denies shortness of breath at rest. Has dyspnea on exertion, increased.No orthopnea. No PNDs.Frequent palpitationswith activity.Denies dizziness. Denies syncope or near syncope.Reports increased bilateral ankle or leg edema since late 11/2021, with increased left posterior knee pain since early 12/2021.No major bleeding events.No reported side effects from medications. Taking medications as prescribed with no missed doses.Denies snoring, daytime somnolence and AM headache. LDL was 66 done on 01/11/21 .Pt takes. She has followed up with pulmonary provider after being found to have a nodule on CT Chest on 11/25/17 showing pleural based intraparenchymal air space disease in the medial aspect of the right lower lobe measuring 9x 16 mm. She went to [facility] on 02/05/18 for a consultation with a surgeon to see about biopsy vs surgical removal of nodule. She had PFT testing 01/29/18. She had CT scan 03/12/2018 showed nodule stable. She had CT scan 05/2018 showed nodule resolved. She was at [facility] on 11/27/17 for elevated calcium levels (13.2). Dr. Ring (PCP) called her to go to the ER for elevated calcium. She was off thyroid medication at this time and it was restarted in the hospital. Had PTH Scan which was negative for adenoma. Had thyroid US which showed 6 mm left thyroid hypoechoic mass, likely benign. She had Bone Density test which showed no significant abnormality. She reports increased calcium, 60 lb weight loss in last several months. She also feels very fatigued and is sleeping more than normal and taking naps throughout day. Pt has ALIVIA using CPAP but has found to have 46 apnea events. She is on BiPap now. She is on Coumadin and has it checked at lab per [facility]. She was in [facility] in 05/22/17 because of atrial fibrillation with rapid ventricular response, with associated CHF with preserved EF. Had ECHO 08/06/19: LV chamber size is normal,LV wall thickness is normal, EF 55-60%, diastolic function is indeterminate due to atrial fibrillation, the aortic valve is mildly calcified, there is mild aortic root calcification, the mitral valve leaflet is mildly thickened, atrial fibrillation. Ascending aortic diameter 4.3 cm. Had ECHO done on 05/22/17 showed Normal left ventricular size. Mild concentric left ventricular hypertrophy. Normal global left ventricular systolic function. Ejection fraction is measured at 67%. Atrial fibrillation. Technically difficult study with limited views. Aortic root is mildly dilated. Diastolic function difficult to determine in the setting of atrial fibrillation. No prior echo available for comparison. Had Dobutamine Myocardial Perfusion Study 07/30/17 : Negative dobutamine stress test for ischemia. Normal LV systolic function. Abnormal stress test. Artifact noted. No previous study to compare. LVEF >60%. Had negative right venous Doppler study on 08/23/17. Swelling resolved. Had 12/06/21-CTA Chest: Stable fusiform ascending thoracic aortic aneurysm measuring 4 cm. Mediastinal and hilar lymphadenopathy, most likely reactive, although metastatic disease and lymphoma should be considered. Diffuse groundglass opacification which may reflect atelectasis, pneumonia and or edema. Had CT of chest with contrast 11/23/20: ectasia of ascending aorta measuring 4.[address] of chest 06/26/18: ectasia of ascending aorta 4.[address] of chest 11/25/17 : The ascending aorta measuring 4.2 cm, stable. There is pleural based intraparenchymal air space disease in the medial aspect of the right lower lobe measuring 9x 16 mm which is new compared to previous exam, needs 3 mo f/u. Had catheterization straight - procedure (PROC) 03/27/21:Mild CAD (mLAD 25% stenosis, ostial D1 50%). Normal left ventricular function. Elevated left ventricular end-diastolic pressure. Had dobutamine nuclear stress 01/10/21: positive for ischemia, with partially reversible defect in kai-apical and septal areas (new c/w 07/30/17), LVEF 59%. Had ECHO 12/20/20: Atrial fibrillation is present,LV chamber size is normal,there is borderline LVH,The estimated LVEF is 55-60%(normal),diastol ic function is indeterminate due to atrial fibrillation,there is trace tricuspid regurgitation,there is minimal pulmonic regurgitation. Results from this visit, or from the past: Had 12/29/21: Cr 0.93, K 4.5, Mg 1.9, Had 12/06/21: Cr 1.0 Had 10/18/21: INR 2.3, HDL 42, TG 169, LDL 69, Cr 1.07, K 4.6, Mg 1.9, TSH 2.7, hgb 13.7 08/28/21 - INR : 2.1(H)PT 19.8(H) PT/INR [id number] 1.7 H PT 17.2 H 03/27/21:Na 137,K 4.6,CL 100,CO2 28,Glu 176,Bun 11,Cr 0.9. 03/27/21:WBC 7.1,RBC 5.06,HGB 14.0,HCT 44.3,PLT 197. 03/27/21:PT 14.7,INR 1.1,aPTT 41. 7 CMP GL 109, BUN 14, CR 1.01, NA 141, K 4.3, CHL 102, CA 9.5, AP 72, AST 13, ALT 10, MG 1.7, TSH 3.85 01/12/21 CBC WBC 6.8, RBC 4.71, HGB 13.2, HCT 40.5, PLT 191 01/12/21 LIPID TC 133, HDL 43, TR 160, LDL 66 11/21/20 PT/INR INR 2.5, PT 25.1 10/28/20: TG 204, LDL LIPID: TC 216, HDL 46, TG 204, LDL 136 07/14/20 CMP: Na 138, K 4.5, CH 101, Co2 27, GL 133, B 16, CR 0.91, AST 13, ALT 9 07/14/20 LIPID: TC 176, TG 197, HDL 39, LDL 105 07/14/20 CBC: WBC: 7.5, RBC 4.85, HGB 13.7, HCT 41.5, PLT 239 06/09/20 PT/INR: PT 24.4, INR 2.5 01/04/20 PT/INR: PT 19.5, INR 2.0 12/02/18: PT 19.3, INR 1.9 11/05/18 TSH: 3.42 T4 .85 BMP: NA 138, K 4.1, CL 101, CO2 27, GLU 165, BUN 21, CR 1.145 FLP: TC 126, TR 192, HDL 35, LDL 65 03-07-2018 NA: 134, K: 4.5, CL: 98, CO2: 28, GLU: 442, BUN: 24, CR: 02/19/18: Na 135 ,K 4.3 ,CL 100 ,CO2 27 ,GLU 266 ,BUN 21,CR 1.17, 02/19/18: TC 133 ,TG 224 ,HDL 30,LDL 72 , 01/03/18: TSH 3.19, T4 1.1 01/02/18: Na 137, K 4.5, Cl 99, CO2 27, GLU 261, BUN 29, Cr 1.457: TC 192, HDL 30, TG 274, LDL 120 10/01/17 : Na 138 , K 5.0 , CL 103 ,CO2 26 ,GLU 202 ,BUN 25 ,CR 1.22 ,CK 14,TC 158 ,TG 235 ,HDL 33 ,LDL 92,AST16 ,ALT 11,PT 32.9, INR 3.1 09/18/17 CMP: SOD 136, K 4.3, CL 98, CO2 28, GL 206, BUN 18, CR 1.14, AST 15, ALT 10; SM 08/08/2017: NA:139, K:4.4, CL:101, GLU:243, BUN:19, CR:1.2, AST:13, ALT:10, M.2 07/12/17: Mg 1.3 07/12/17: TSH 5.52, FT4 1.1 07/12/17: HGB A1C 7.4 07/02/17: Na 140 ,K 4.6 , CL 98 ,CO2 29 , GLU 167 , BUN 20 ,CR 1.3 ,AST 16 ,ALT13 06/17/17: Na 137 ,K 4.8 , CL 96 ,CO2 32 ,GLU 172 ,BUN 40 ,CR 1.57 ,HB 14.0, HT 42.9 06/17/17: CBC 9.5, HGB 14, HCT 42.9, PLT 330. 06/11/17: Na 134 ,K 4.5 ,CL 86 ,CO2 35 ,GLU 173,BUN 66 ,CR 2.69 , AST 21,ALT 14 05/28/17: Na 137 ,K 4.5 , CL 97 ,CO2 29,GLU 162 ,BUN 19 ,CR 0.77, 05/21/17: WBC 10.4, HGB 14.8, HCT 45.1, PLT 328. EKG 04-04-2021: atrial fibrillation with normal ventricular response. P: no analysis. QRS: normal. ST-T: normal. conclusion: abnormal ECG. 11/30/20 EKG: AFib. QRS: normal. ST-T: normal. conclusion: abnormal ECG. 07/13/20 EKG: A FIB 01/25/20 EKG: Atrial Fibrillation 04/08/19 EKG: probably atrial fibrillation EKG 12/08/18: EKG machine before i could print. EKG 10/01/18 : Probably Atrial Fibrillation. EK04/02/18 Probably atrial fibrillation. EKG 12/03/17:Atrial fibrillation with slow ventricular response. Abnormal ECG. EKG 11/18/17: Atrial fibrillation with normal ventricular response. P: no analysis. QRS: normal. ST-T: normal. Additional remarks: long QT interval. Conclusion: abnormal ECG EKG 08/08/2017: Probably Atrial Fibrillation; Low voltage, chest leads; Non-specific inverted T waves, inferior leads EKG 06/26/17 : atrial fibrillation with normal ventricular response. P: no analysis. QRS: low voltage in precordial leads. ST-T: minor left precordial ST-T changes, probably aspecific change. small negative T in V4 V5. with flat or low negative T in V6. additional remarks: long QT interval. Conclusion: abnormal ECG EKG 06/03/17: Atrial fibrillation. Low voltage, chest leads ECHO 12/20/20:Atrial fibrillation is present,LV chamber size is normal,there is borderline LVH,The estimated LVEF is 55-60%(nornmal),diasto lic function is indetermionate due to atrial fibrillation,there is trace tricuspid regurgitation,there is minimal pulmonic regurgitation. ECHO 08/06/19:LV chamber size is normal,LV wall thickness is normal,EF 55-60%,diastolic function is ndeterminate due to atrial fibrillation,the aortic valve is mildly calcifeid, there is mild aortic root calcification,the mitral valve leaflet is mildly thickened,atrial fibrillation. Dobutamine Myocardial Perfusion Study 07/30/17 : Negative dobutamine stress test for ischemia. Normal LV systolic function. Abnormal stress test. Artifact noted. No previous study to compare. LVEF >60%. CXR 07/14/2020: No acute cardiopulmonary abnormality. XR, Chest 05/28/17:no significance change of diffuse bilateral pulmonary infiltrates since 05/21/17,greater in the lower lung zones. ECHO 05/22/17:Normal LV size,mild LVH, Normal global LV systolic function,EF 67%,atrial fibrillation, technically difficult study with limited views, Aortic root is mildly dilated , diastolic function difficult to determine in the setting of atrial fibrillation. US, Doppler, Venous 08/23/17 : Negative right venous study. Had CT of chest with contrast 11/23/20: ectasia of ascending aorta measuring 4.[address] of chest 06/26/18: ectasia of ascending aorta 4.[address] of chest 11/25/17 : The ascending aorta measuring 4.2 cm, stable. There is pleural based intraparenchymal air space disease in the medial aspect of the rightlower lobe measuring 9x 16 mm which is new compared to previous exam, needs 3mo f/u. 03-27-2021 LHC:Mild CAD. Normal left ventricular function. Elevated left ventricular end-diastolic pressure. Franco sinha ID - [facility] 01/03/2022 18:05:38 02/14/2022 text/html 02/14/22 CC: Cardiac follow up, dyspnea on exertion 66 year-old white woman with CAD, HF-pEF, atrial fibrillation, COVID-19 pneumonia (positive 06/20/20, not treated), hypertension, ascending aortic aneurysm, hypothyroidism, Type 2 DM, COPD, asthma, ALIVIA on BiPAP with 3 L/m and 3L/m with activity, seasonal allergies, psoriatic arthritis, and anemia, is here for follow up. She was last seen in the clinic on 01/03/22, She gets occasional palpitations. Has increased exertional dyspnea since late 11/2021. Had a cath with mild coronary artery disease, but with elevated LVEDP. Denies chest pain.Denies shortness of breath at rest. Has dyspnea on exertion, increased.No orthopnea. No PNDs.Frequent palpitationswith activity.Denies dizziness. Denies syncope or near syncope.Reports increased bilateral ankle or leg edema L>R since late 11/2021, with increased left posterior knee pain since early 12/2021.No major bleeding events.No reported side effects from medications. Taking medications as prescribed with no missed doses.Denies snoring, daytime somnolence and AM headache. LDL was 66 done on 01/11/21 .Pt takes. She has followed up with pulmonary provider after being found to have a nodule on CT Chest on 11/25/17 showing pleural based intraparenchymal air space disease in the medial aspect of the right lower lobe measuring 9x 16 mm. She went to [facility] on 02/05/18 for a consultation with a surgeon to see about biopsy vs surgical removal of nodule. She had PFT testing 01/29/18. She had CT scan 03/12/2018 showed nodule stable. She had CT scan 05/2018 showed nodule resolved. She was at [facility] on 11/27/17 for elevated calcium levels (13.2). Dr. Ring (PCP) called her to go to the ER for elevated calcium. She was off thyroid medication at this time and it was restarted in the hospital. Had PTH Scan which was negative for adenoma. Had thyroid US which showed 6 mm left thyroid hypoechoic mass, likely benign. She had Bone Density test which showed no significant abnormality. She reports increased calcium, 60 lb weight loss in last several months. She also feels very fatigued and is sleeping more than normal and taking naps throughout day. Pt has ALIVIA using CPAP but has found to have 46 apnea events. She is on BiPap now. She is on Coumadin and has it checked at lab per [facility]. She was in [facility] in 05/22/17 because of atrial fibrillation with rapid ventricular response, with associated CHF with preserved EF. Had ECHO 08/06/19: LV chamber size is normal,LV wall thickness is normal, EF 55-60%, diastolic function is indeterminate due to atrial fibrillation, the aortic valve is mildly calcified, there is mild aortic root calcification, the mitral valve leaflet is mildly thickened, atrial fibrillation. Ascending aortic diameter 4.3 cm. Had ECHO done on 05/22/17 showed Normal left ventricular size. Mild concentric left ventricular hypertrophy. Normal global left ventricular systolic function. Ejection fraction is measured at 67%. Atrial fibrillation. Technically difficult study with limited views. Aortic root is mildly dilated. Diastolic function difficult to determine in the setting of atrial fibrillation. No prior echo available for comparison. Had Dobutamine Myocardial Perfusion Study 07/30/17 : Negative dobutamine stress test for ischemia. Normal LV systolic function. Abnormal stress test. Artifact noted. No previous study to compare. LVEF >60%. Had US, doppler, venous 01-19-2022 : Negative left-sided venous Doppler study. Had negative right venous Doppler study on 08/23/17. Swelling resolved. Had 12/06/21-CTA Chest: Stable fusiform ascending thoracic aortic aneurysm measuring 4 cm. Mediastinal and hilar lymphadenopathy, most likely reactive, although metastatic disease and lymphoma should be considered. Diffuse groundglass opacification which may reflect atelectasis, pneumonia and or edema. Had CT of chest with contrast 11/23/20: ectasia of ascending aorta measuring 4.[address] of chest 06/26/18: ectasia of ascending aorta 4.[address] of chest 11/25/17 : The ascending aorta measuring 4.2 cm, stable. There is pleural based intraparenchymal air space disease in the medial aspect of the right lower lobe measuring 9x 16 mm which is new compared to previous exam, needs 3 mo f/u. Had catheterization straight - procedure (PROC) 03/27/21:Mild CAD (mLAD 25% stenosis, ostial D1 50%). Normal left ventricular function. Elevated left ventricular end-diastolic pressure. Had dobutamine nuclear stress 01/10/21: positive for ischemia, with partially reversible defect in kai-apical and septal areas (new c/w 07/30/17), LVEF 59%. Had 02/07/22 US, echocardiogram : LV chamber size is normal. There is normal global systolic function and contractility. The estimated left ventricle ejection fraction is 55-60% (normal). Had ECHO 12/20/20: Atrial fibrillation is present,LV chamber size is normal,there is borderline LVH,The estimated LVEF is 55-60%(normal),diastol ic function is indeterminate due to atrial fibrillation,there is trace tricuspid regurgitation,there is minimal pulmonic regurgitation. Results from this visit, or from the past: 01/30/22 INR 2.0, PT 19.4 Had 12/29/21: Cr 0.93, K 4.5, Mg 1.9, Had 12/06/21: Cr 1.0 Had 10/18/21: INR 2.3, HDL 42, TG 169, LDL 69, Cr 1.07, K 4.6, Mg 1.9, TSH 2.7, hgb 13.7 08/28/21 - INR : 2.1(H)PT 19.8(H) PT/INR [id number] 1.7 H PT 17.2 H 03/27/21:Na 137,K 4.6,CL 100,CO2 28,Glu 176,Bun 11,Cr 0.9. 03/27/21:WBC 7.1,RBC 5.06,HGB 14.0,HCT 44.3,PLT 197. 03/27/21:PT 14.7,INR 1.1,aPTT 41. 7/ CMP GL 109, BUN 14, CR 1.01, NA 141, K 4.3, CHL 102, CA 9.5, AP 72, AST 13, ALT 10, MG 1.7, TSH 3.85 01/12/21 CBC WBC 6.8, RBC 4.71, HGB 13.2, HCT 40.5, PLT 191 01/12/21 LIPID TC 133, HDL 43, TR 160, LDL 66 11/21/20 PT/INR INR 2.5, PT 25.1 10/28/20: TG 204, LDL LIPID: TC 216, HDL 46, TG 204, LDL 136 07/14/20 CMP: Na 138, K 4.5, CH 101, Co2 27, GL 133, B 16, CR 0.91, AST 13, ALT 9 07/14/20 LIPID: TC 176, TG 197, HDL 39, LDL 105 07/14/20 CBC: WBC: 7.5, RBC 4.85, HGB 13.7, HCT 41.5, PLT 239 06/09/20 PT/INR: PT 24.4, INR 2.5 01/04/20 PT/INR: PT 19.5, INR 2.0 12/02/18: PT 19.3, INR 1.9 11/05/18 TSH: 3.42 T4 .85 BMP: NA 138, K 4.1, CL 101, CO2 27, GLU 165, BUN 21, CR 1.145 FLP: TC 126, TR 192, HDL 35, LDL 65 03-07-2018 NA: 134, K: 4.5, CL: 98, CO2: 28, GLU: 442, BUN: 24, CR: 02/19/18: Na 135 ,K 4.3 ,CL 100 ,CO2 27 ,GLU 266 ,BUN 21,CR 1.17, 02/19/18: TC 133 ,TG 224 ,HDL 30,LDL 72 , 01/03/18: TSH 3.19, T4 1.1 01/02/18: Na 137, K 4.5, Cl 99, CO2 27, GLU 261, BUN 29, Cr 1.457: TC 192, HDL 30, TG 274, LDL 120 10/01/17 : Na 138 , K 5.0 , CL 103 ,CO2 26 ,GLU 202 ,BUN 25 ,CR 1.22 ,CK 14,TC 158 ,TG 235 ,HDL 33 ,LDL 92,AST16 ,ALT 11,PT 32.9, INR 3.1 09/18/17 CMP: SOD 136, K 4.3, CL 98, CO2 28, GL 206, BUN 18, CR 1.14, AST 15, ALT 10; SM 08/08/2017: NA:139, K:4.4, CL:101, GLU:243, BUN:19, CR:1.2, AST:13, ALT:10, M.2 07/12/17: Mg 1.3 07/12/17: TSH 5.52, FT4 1.1 07/12/17: HGB A1C 7.4 07/02/17: Na 140 ,K 4.6 , CL 98 ,CO2 29 , GLU 167 , BUN 20 ,CR 1.3 ,AST 16 ,ALT13 06/17/17: Na 137 ,K 4.8 , CL 96 ,CO2 32 ,GLU 172 ,BUN 40 ,CR 1.57 ,HB 14.0, HT 42.9 06/17/17: CBC 9.5, HGB 14, HCT 42.9, PLT 330. 06/11/17: Na 134 ,K 4.5 ,CL 86 ,CO2 35 ,GLU 173,BUN 66 ,CR 2.69 , AST 21,ALT 14 05/28/17: Na 137 ,K 4.5 , CL 97 ,CO2 29,GLU 162 ,BUN 19 ,CR 0.77, 05/21/17: WBC 10.4, HGB 14.8, HCT 45.1, PLT 328. EKG 04-04-2021: atrial fibrillation with normal ventricular response. P: no analysis. QRS: normal. ST-T: normal. conclusion: abnormal ECG. 11/30/20 EKG: AFib. QRS: normal. ST-T: normal. conclusion: abnormal ECG. 07/13/20 EKG: A FIB 01/25/20 EKG: Atrial Fibrillation 04/08/19 EKG: probably atrial fibrillation EKG 12/08/18: EKG machine before i could print. EKG 10/01/18 : Probably Atrial Fibrillation. EK04/02/18 Probably atrial fibrillation. EKG 12/03/17:Atrial fibrillation with slow ventricular response. Abnormal ECG. EKG 11/18/17: Atrial fibrillation with normal ventricular response. P: no analysis. QRS: normal. ST-T: normal. Additional remarks: long QT interval. Conclusion: abnormal ECG EKG 08/08/2017: Probably Atrial Fibrillation; Low voltage, chest leads; Non-specific inverted T waves, inferior leads EKG 06/26/17 : atrial fibrillation with normal ventricular response. P: no analysis. QRS: low voltage in precordial leads. ST-T: minor left precordial ST-T changes, probably aspecific change. small negative T in V4 V5. with flat or low negative T in V6. additional remarks: long QT interval. Conclusion: abnormal ECG EKG 06/03/17: Atrial fibrillation. Low voltage, chest leads ECHO 12/20/20:Atrial fibrillation is present,LV chamber size is normal,there is borderline LVH,The estimated LVEF is 55-60%(nornmal),diasto lic function is indetermionate due to atrial fibrillation,there is trace tricuspid regurgitation,there is minimal pulmonic regurgitation. ECHO 08/06/19:LV chamber size is normal,LV wall thickness is normal,EF 55-60%,diastolic function is ndeterminate due to atrial fibrillation,the aortic valve is mildly calcifeid, there is mild aortic root calcification,the mitral valve leaflet is mildly thickened,atrial fibrillation. Dobutamine Myocardial Perfusion Study 07/30/17 : Negative dobutamine stress test for ischemia. Normal LV systolic function. Abnormal stress test. Artifact noted. No previous study to compare. LVEF >60%. CXR 07/14/2020: No acute cardiopulmonary abnormality. XR, Chest 05/28/17:no significance change of diffuse bilateral pulmonary infiltrates since 05/21/17,greater in the lower lung zones. ECHO 05/22/17:Normal LV size,mild LVH, Normal global LV systolic function,EF 67%,atrial fibrillation, technically difficult study with limited views, Aortic root is mildly dilated , diastolic function difficult to determine in the setting of atrial fibrillation. US, Doppler, Venous 08/23/17 : Negative right venous study. Had CT of chest with contrast 11/23/20: ectasia of ascending aorta measuring 4.[address] of chest 06/26/18: ectasia of ascending aorta 4.[address] of chest 11/25/17 : The ascending aorta measuring 4.2 cm, stable. There is pleural based intraparenchymal air space disease in the medial aspect of the rightlower lobe measuring 9x 16 mm which is new compared to previous exam, needs 3mo f/u. 03-27-2021 C:Mild CAD. Normal left ventricular function. Elevated left ventricular end-diastolic pressure. Franco [place]ha[place], [place] - [facility] 02/14/2022 16:38:38 07/18/2022 text/html 07/18/22 CC: Cardiac follow up, dyspnea on exertion 66 year-old white woman with CAD, HF-pEF, atrial fibrillation, COVID-19 pneumonia (positive 06/20/20, not treated), hypertension, ascending aortic aneurysm, hypothyroidism, Type 2 DM, COPD, asthma, ALIVIA on BiPAP with 3 L/m and 3L/m with activity, seasonal allergies, psoriatic arthritis, and anemia, is here for follow up. She reports right leg sciatica and right knee arthritis. She was last seen in the clinic on 02/14/22. She gets much less palpitations, usually with exertion. Has increased exertional dyspnea since late 11/2021, subsequently improved. Had a cath with mild coronary artery disease, but with elevated LVEDP. Denies chest pain.Denies shortness of breath at rest. Has dyspnea on exertion, improved.No orthopnea. No PNDs.Frequent palpitations with activity.Denies dizziness. Denies syncope or near syncope.Reports decreased bilateral ankle or leg edema.No major bleeding events.No reported side effects from medications. Taking medications as prescribed with no missed doses.Denies snoring, daytime somnolence and AM headache. LDL was 66 done on 01/11/21. She had followed up with pulmonary provider after being found to have a nodule on CT Chest on 11/25/17 showing pleural based intraparenchymal air space disease in the medial aspect of the right lower lobe measuring 9x 16 mm. She went to [facility] on 02/05/18 for a consultation with a surgeon to see about biopsy vs surgical removal of nodule. She had PFT testing 01/29/18. She had CT scan 03/12/2018 showed nodule stable. She had CT scan 05/2018 showed nodule resolved. She was at [facility] on 11/27/17 for elevated calcium levels (13.2). Dr. Ring (PCP) called her to go to the ER for elevated calcium. She was off thyroid medication at this time and it was restarted in the hospital. Had PTH Scan which was negative for adenoma. Had thyroid US which showed 6 mm left thyroid hypoechoic mass, likely benign. She had Bone Density test which showed no significant abnormality. She reports increased calcium, 60 lb weight loss in last several months. She also feels very fatigued and is sleeping more than normal and taking naps throughout day. Pt has ALIVIA using CPAP but has found to have 46 apnea events. She is on BiPap now. She is on Coumadin and has it checked at lab per [facility]. She was in [facility] in 05/22/17 because of atrial fibrillation with rapid ventricular response, with associated CHF with preserved EF. Had ECHO 08/06/19: LV chamber size is normal,LV wall thickness is normal, EF 55-60%, diastolic function is indeterminate due to atrial fibrillation, the aortic valve is mildly calcified, there is mild aortic root calcification, the mitral valve leaflet is mildly thickened, atrial fibrillation. Ascending aortic diameter 4.3 cm. Had ECHO done on 05/22/17 showed Normal left ventricular size. Mild concentric left ventricular hypertrophy. Normal global left ventricular systolic function. Ejection fraction is measured at 67%. Atrial fibrillation. Technically difficult study with limited views. Aortic root is mildly dilated. Diastolic function difficult to determine in the setting of atrial fibrillation. No prior echo available for comparison. Had Dobutamine Myocardial Perfusion Study 07/30/17 : Negative dobutamine stress test for ischemia. Normal LV systolic function. Abnormal stress test. Artifact noted. No previous study to compare. LVEF >60%. Had US, doppler, venous 01-19-2022 : Negative left-sided venous Doppler study. Had negative right venous Doppler study on 08/23/17. Swelling resolved. Had 12/06/21-CTA Chest: Stable fusiform ascending thoracic aortic aneurysm measuring 4 cm. Mediastinal and hilar lymphadenopathy, most likely reactive, although metastatic disease and lymphoma should be considered. Diffuse groundglass opacification which may reflect atelectasis, pneumonia and or edema. She has pulmonary f/u 08/2022 with plans to discuss lymphadenopathy as discussed with patient. Had CT of chest with contrast 11/23/20: ectasia of ascending aorta measuring 4.[address] of chest 06/26/18: ectasia of ascending aorta 4.[address] of chest 11/25/17 : The ascending aorta measuring 4.2 cm, stable. There is pleural based intraparenchymal air space disease in the medial aspect of the right lower lobe measuring 9x 16 mm which is new compared to previous exam, needs 3 mo f/u. Had catheterization straight - procedure (PROC) 03/27/21:Mild CAD (mLAD 25% stenosis, ostial D1 50%). Normal left ventricular function. Elevated left ventricular end-diastolic pressure. Had dobutamine nuclear stress 01/10/21: positive for ischemia, with partially reversible defect in kai-apical and septal areas (new c/w 07/30/17), LVEF 59%. Had 02/07/22 US, echocardiogram : LV chamber size is normal. There is normal global systolic function and contractility. The estimated left ventricle ejection fraction is 55-60% (normal). Had ECHO 12/20/20: Atrial fibrillation is present,LV chamber size is normal,there is borderline LVH,The estimated LVEF is 55-60%(normal),diastol ic function is indeterminate due to atrial fibrillation,there is trace tricuspid regurgitation,there is minimal pulmonic regurgitation. Results from this visit, or from the past: 07/06/22 PT/INR: INR 1.8, 17.7 03/27/2022MP-GL 182(H) BUN 20 CR 1.10(H) NA 138 K 4.5 CA 10.1 MAG 2.0 01/30/22 INR 2.0, PT 19.4 Had 12/29/21: Cr 0.93, K 4.5, Mg 1.9, Had 12/06/21: Cr 1.0 Had 10/18/21: INR 2.3, HDL 42, TG 169, LDL 69, Cr 1.07, K 4.6, Mg 1.9, TSH 2.7, hgb 13.7 08/28/21 - INR : 2.1(H)PT 19.8(H) PT/INR [id number] 1.7 H PT 17.2 H 03/27/21:Na 137,K 4.6,CL 100,CO2 28,Glu 176,Bun 11,Cr 0.9. 03/27/21:WBC 7.1,RBC 5.06,HGB 14.0,HCT 44.3,PLT 197. 03/27/21:PT 14.7,INR 1.1,aPTT 41. 01/12/21 CMP GL 109, BUN 14, CR 1.01, NA 141, K 4.3, CHL 102, CA 9.5, AP 72, AST 13, ALT 10, MG 1.7, TSH 3.85 01/12/21 CBC WBC 6.8, RBC 4.71, HGB 13.2, HCT 40.5, PLT 191 01/12/21 LIPID TC 133, HDL 43, TR 160, LDL 66 11/21/20 PT/INR INR 2.5, PT 25.1 10/28/20: TG 204, LDL LIPID: TC 216, HDL 46, TG 204, LDL 136 07/14/20 CMP: Na 138, K 4.5, CH 101, Co2 27, GL 133, B 16, CR 0.91, AST 13, ALT 9 07/14/20 LIPID: TC 176, TG 197, HDL 39, LDL 105 07/14/20 CBC: WBC: 7.5, RBC 4.85, HGB 13.7, HCT 41.5, PLT 239 06/09/20 PT/INR: PT 24.4, INR 2.5 01/04/20 PT/INR: PT 19.5, INR 2.0 12/02/18: PT 19.3, INR 1.9 11/05/18 TSH: 3.42 T4 .85 BMP: NA 138, K 4.1, CL 101, CO2 27, GLU 165, BUN 21, CR 1.145 FLP: TC 126, TR 192, HDL 35, LDL 65 03-07-2018 NA: 134, K: 4.5, CL: 98, CO2: 28, GLU: 442, BUN: 24, CR: 02/19/18: Na 135 ,K 4.3 ,CL 100 ,CO2 27 ,GLU 266 ,BUN 21,CR 1.17, 02/19/18: TC 133 ,TG 224 ,HDL 30,LDL 72 , 01/03/18: TSH 3.19, T4 1.1 01/02/18: Na 137, K 4.5, Cl 99, CO2 27, GLU 261, BUN 29, Cr 1.: TC 192, HDL 30, TG 274, LDL 120 10/01/17 : Na 138 , K 5.0 , CL 103 ,CO2 26 ,GLU 202 ,BUN 25 ,CR 1.22 ,CK 14,TC 158 ,TG 235 ,HDL 33 ,LDL 92,AST16 ,ALT 11,PT 32.9, INR 3.1 09/18/17 CMP: SOD 136, K 4.3, CL 98, CO2 28, GL 206, BUN 18, CR 1.14, AST 15, ALT 10; SM 08/08/2017: NA:139, K:4.4, CL:101, GLU:243, BUN:19, CR:1.2, AST:13, ALT:10, M.2 07/12/17: Mg 1.3 07/12/17: TSH 5.52, FT4 1.1 07/12/17: HGB A1C 7.4 07/02/17: Na 140 ,K 4.6 , CL 98 ,CO2 29 , GLU 167 , BUN 20 ,CR 1.3 ,AST 16 ,ALT13 06/17/17: Na 137 ,K 4.8 , CL 96 ,CO2 32 ,GLU 172 ,BUN 40 ,CR 1.57 ,HB 14.0, HT 42.9 06/17/17: CBC 9.5, HGB 14, HCT 42.9, PLT 330. 06/11/17: Na 134 ,K 4.5 ,CL 86 ,CO2 35 ,GLU 173,BUN 66 ,CR 2.69 , AST 21,ALT 14 05/28/17: Na 137 ,K 4.5 , CL 97 ,CO2 29,GLU 162 ,BUN 19 ,CR 0.77, 05/21/17: WBC 10.4, HGB 14.8, HCT 45.1, PLT 328. 02/14/22 EKG: Atrial fibrillation with normal ventricular response, P; no analysis, QRS; low voltage in precordial leads, ST-T; normal, conclusion: abnormal ECG. EKG 04-04-2021: atrial fibrillation with normal ventricular response. P: no analysis. QRS: normal. ST-T: normal. conclusion: abnormal ECG. 11/30/20 EKG: AFib. QRS: normal. ST-T: normal. conclusion: abnormal ECG. 07/13/20 EKG: A FIB 01/25/20 EKG: Atrial Fibrillation 04/08/19 EKG: probably atrial fibrillation EKG 12/08/18: EKG machine before i could print. EKG 10/01/18 : Probably Atrial Fibrillation. EK04/02/18 Probably atrial fibrillation. EKG 12/03/17:Atrial fibrillation with slow ventricular response. Abnormal ECG. EKG 11/18/17: Atrial fibrillation with normal ventricular response. P: no analysis. QRS: normal. ST-T: normal. Additional remarks: long QT interval. Conclusion: abnormal ECG EKG 08/08/2017: Probably Atrial Fibrillation; Low voltage, chest leads; Non-specific inverted T waves, inferior leads EKG 06/26/17 : atrial fibrillation with normal ventricular response. P: no analysis. QRS: low voltage in precordial leads. ST-T: minor left precordial ST-T changes, probably aspecific change. small negative T in V4 V5. with flat or low negative T in V6. additional remarks: long QT interval. Conclusion: abnormal ECG EKG 06/03/17: Atrial fibrillation. Low voltage, chest leads US, echocardiogram [id number] chamber size is normal. There is normal global systolic function and contractility. The estimated left ventricle ejection fraction is 55-60% (normal). ECHO 12/20/20:Atrial fibrillation is present,LV chamber size is normal,there is borderline LVH,The estimated LVEF is 55-60%(nornmal),diasto lic function is indetermionate due to atrial fibrillation,there is trace tricuspid regurgitation,there is minimal pulmonic regurgitation. ECHO 08/06/19:LV chamber size is normal,LV wall thickness is normal,EF 55-60%,diastolic function is ndeterminate due to atrial fibrillation,the aortic valve is mildly calcifeid, there is mild aortic root calcification,the mitral valve leaflet is mildly thickened,atrial fibrillation. Dobutamine Myocardial Perfusion Study 07/30/17 : Negative dobutamine stress test for ischemia. Normal LV systolic function. Abnormal stress test. Artifact noted. No previous study to compare. LVEF >60%. CXR 07/14/2020: No acute cardiopulmonary abnormality. XR, Chest 05/28/17:no significance change of diffuse bilateral pulmonary infiltrates since 05/21/17,greater in the lower lung zones. ECHO 05/22/17:Normal LV size,mild LVH, Normal global LV systolic function,EF 67%,atrial fibrillation, technically difficult study with limited views, Aortic root is mildly dilated , diastolic function difficult to determine in the setting of atrial fibrillation. US, doppler, venous [id number] Duplex Negative left-sided venous Doppler study. US, Doppler, Venous 08/23/17 : Negative right venous study. 12/06/21-CTA Chest.Stable fusiform ascending thoracic aortic aneurysm measuring 4 cm. Mediastinal and hilar lymphadenopathy, most likely reactive, although metastatic disease and lymphoma should be considered. Diffuse groundglass opacification which may reflect atelectasis, pneumonia and or edema. Had CT of chest with contrast 11/23/20: ectasia of ascending aorta measuring 4.[address] of chest 06/26/18: ectasia of ascending aorta 4.[address] of chest 11/25/17 : The ascending aorta measuring 4.2 cm, stable. There is pleural based intraparenchymal air space disease in the medial aspect of the rightlower lobe measuring 9x 16 mm which is new compared to previous exam, needs 3mo f/u. 03-27-2021 LHC:Mild CAD. Normal left ventricular function. Elevated left ventricular end-diastolic pressure. Franco sinha ID - [facility] 07/18/2022 16:12:33 11/14/2022 text/html 11/14/22 CC: Cardiac follow up, dyspnea on exertion 67 year-old white woman with CAD, HF-pEF, atrial fibrillation, COVID-19 pneumonia (positive 06/20/20, not treated, 08/2022), hypertension, ascending aortic aneurysm, hypothyroidism, Type 2 DM, COPD, asthma, ALIVIA on BiPAP with 3 L/m and 3L/m with activity, seasonal allergies, psoriatic arthritis, and anemia, is here for follow up. She reports right leg sciatica and right knee arthritis. She was last seen in the clinic on 07/18/22. She gets much less palpitations, usually with exertion. Has increased exertional dyspnea since late 11/2021, subsequently improved. Had a cath with mild coronary artery disease, but with elevated LVEDP. Reports non-exertional left chest pain/pressure extending to mid-scapular area for hours at a time since 11/07/22. Chest pain variably improved with pressing on torso. No associated dyspnea, nausea, or diaphoresis.Denies shortness of breath at rest. Has dyspnea on exertion, improved.No orthopnea. No PNDs.Frequent palpitations with activity.Occasional dizziness. Denies syncope or near syncope.Reports decreased bilateral ankle or leg edema.No major bleeding events.No reported side effects from medications. Taking medications as prescribed with no missed doses.Denies snoring, daytime somnolence and AM headache. LDL was 66 done on 01/11/21. She had followed up with pulmonary provider after being found to have a nodule on CT Chest on 11/25/17 showing pleural based intraparenchymal air space disease in the medial aspect of the right lower lobe measuring 9x 16 mm. She went to [facility] on 02/05/18 for a consultation with a surgeon to see about biopsy vs surgical removal of nodule. She had PFT testing 01/29/18. She had CT scan 03/12/2018 showed nodule stable. She had CT scan 05/2018 showed nodule resolved. She was at [facility] on 11/27/17 for elevated calcium levels (13.2). Dr. Ring (PCP) called her to go to the ER for elevated calcium. She was off thyroid medication at this time and it was restarted in the hospital. Had PTH Scan which was negative for adenoma. Had thyroid US which showed 6 mm left thyroid hypoechoic mass, likely benign. She had Bone Density test which showed no significant abnormality. She reports increased calcium, 60 lb weight loss in last several months. She also feels very fatigued and is sleeping more than normal and taking naps throughout day. Pt has ALIVIA using CPAP but has found to have 46 apnea events. She is on BiPap now. She is on Coumadin and has it checked at lab per [facility]. She was in [facility] in 05/22/17 because of atrial fibrillation with rapid ventricular response, with associated CHF with preserved EF. Had ECHO 08/06/19: LV chamber size is normal,LV wall thickness is normal, EF 55-60%, diastolic function is indeterminate due to atrial fibrillation, the aortic valve is mildly calcified, there is mild aortic root calcification, the mitral valve leaflet is mildly thickened, atrial fibrillation. Ascending aortic diameter 4.3 cm. Had ECHO done on 05/22/17 showed Normal left ventricular size. Mild concentric left ventricular hypertrophy. Normal global left ventricular systolic function. Ejection fraction is measured at 67%. Atrial fibrillation. Technically difficult study with limited views. Aortic root is mildly dilated. Diastolic function difficult to determine in the setting of atrial fibrillation. No prior echo available for comparison. Had Dobutamine Myocardial Perfusion Study 07/30/17 : Negative dobutamine stress test for ischemia. Normal LV systolic function. Abnormal stress test. Artifact noted. No previous study to compare. LVEF >60%. Had US, doppler, venous 01-19-2022 : Negative left-sided venous Doppler study. Had negative right venous Doppler study on 08/23/17. Swelling resolved. Had 12/06/21-CTA Chest: Stable fusiform ascending thoracic aortic aneurysm measuring 4 cm. Mediastinal and hilar lymphadenopathy, most likely reactive, although metastatic disease and lymphoma should be considered. Diffuse groundglass opacification which may reflect atelectasis, pneumonia and or edema. She has pulmonary f/u 08/2022 with plans to discuss lymphadenopathy as discussed with patient. Had CT of chest with contrast 11/23/20: ectasia of ascending aorta measuring 4.[address] of chest 06/26/18: ectasia of ascending aorta 4.[address] of chest 11/25/17 : The ascending aorta measuring 4.2 cm, stable. There is pleural based intraparenchymal air space disease in the medial aspect of the right lower lobe measuring 9x 16 mm which is new compared to previous exam, needs 3 mo f/u. Had catheterization straight - procedure (PROC) 03/27/21:Mild CAD (mLAD 25% stenosis, ostial D1 50%). Normal left ventricular function. Elevated left ventricular end-diastolic pressure. Had dobutamine nuclear stress 01/10/21: positive for ischemia, with partially reversible defect in kai-apical and septal areas (new c/w 07/30/17), LVEF 59%. Had 02/07/22 US, echocardiogram : LV chamber size is normal. There is normal global systolic function and contractility. The estimated left ventricle ejection fraction is 55-60% (normal). Had ECHO 12/20/20: Atrial fibrillation is present,LV chamber size is normal,there is borderline LVH,The estimated LVEF is 55-60%(normal),diastol ic function is indeterminate due to atrial fibrillation,there is trace tricuspid regurgitation,there is minimal pulmonic regurgitation. Results from this visit, or from the past: Had 11/10/22: LDL 107, gluc 147, Cr 1.27 high, K 4.6, Mg 1.9, TSH 1.63, hgb 15.2 07/06/22 PT/INR: INR 1.8, 17.7 03/27/2022MP-GL 182(H) BUN 20 CR 1.10(H) NA 138 K 4.5 CA 10.1 MAG 2.0 01/30/22 INR 2.0, PT 19.4 Had 12/29/21: Cr 0.93, K 4.5, Mg 1.9, Had 12/06/21: Cr 1.0 Had 10/18/21: INR 2.3, HDL 42, TG 169, LDL 69, Cr 1.07, K 4.6, Mg 1.9, TSH 2.7, hgb 13.7 08/28/21 - INR : 2.1(H)PT 19.8(H) PT/INR [id number] 1.7 H PT 17.2 H 03/27/21:Na 137,K 4.6,CL 100,CO2 28,Glu 176,Bun 11,Cr 0.9. 03/27/21:WBC 7.1,RBC 5.06,HGB 14.0,HCT 44.3,PLT 197. 03/27/21:PT 14.7,INR 1.1,aPTT 41. 01/12/21 CMP GL 109, BUN 14, CR 1.01, NA 141, K 4.3, CHL 102, CA 9.5, AP 72, AST 13, ALT 10, MG 1.7, TSH 3.85 01/12/21 CBC WBC 6.8, RBC 4.71, HGB 13.2, HCT 40.5, PLT 191 01/12/21 LIPID TC 133, HDL 43, TR 160, LDL 66 11/21/20 PT/INR INR 2.5, PT 25.1 10/28/20: TG 204, LDL LIPID: TC 216, HDL 46, TG 204, LDL 136 07/14/20 CMP: Na 138, K 4.5, CH 101, Co2 27, GL 133, B 16, CR 0.91, AST 13, ALT 9 07/14/20 LIPID: TC 176, TG 197, HDL 39, LDL 105 07/14/20 CBC: WBC: 7.5, RBC 4.85, HGB 13.7, HCT 41.5, PLT 239 06/09/20 PT/INR: PT 24.4, INR 2.5 01/04/20 PT/INR: PT 19.5, INR 2.0 12/02/18: PT 19.3, INR 1.9 11/05/18 TSH: 3.42 T4 . BMP: NA 138, K 4.1, CL 101, CO2 27, GLU 165, BUN 21, CR 1.145 FLP: TC 126, TR 192, HDL 35, LDL 65 03-07-2018 NA: 134, K: 4.5, CL: 98, CO2: 28, GLU: 442, BUN: 24, CR: 02/19/18: Na 135 ,K 4.3 ,CL 100 ,CO2 27 ,GLU 266 ,BUN 21,CR 1.17, 02/19/18: TC 133 ,TG 224 ,HDL 30,LDL 72 , 01/03/18: TSH 3.19, T4 1.1 01/02/18: Na 137, K 4.5, Cl 99, CO2 27, GLU 261, BUN 29, Cr 1.457: TC 192, HDL 30, TG 274, LDL 120 10/01/17 : Na 138 , K 5.0 , CL 103 ,CO2 26 ,GLU 202 ,BUN 25 ,CR 1.22 ,CK 14,TC 158 ,TG 235 ,HDL 33 ,LDL 92,AST16 ,ALT 11,PT 32.9, INR 3.1 09/18/17 CMP: SOD 136, K 4.3, CL 98, CO2 28, GL 206, BUN 18, CR 1.14, AST 15, ALT 10; SM 08/08/2017: NA:139, K:4.4, CL:101, GLU:243, BUN:19, CR:1.2, AST:13, ALT:10, M.2 07/12/17: Mg 1.3 07/12/17: TSH 5.52, FT4 1.1 07/12/17: HGB A1C 7.4 07/02/17: Na 140 ,K 4.6 , CL 98 ,CO2 29 , GLU 167 , BUN 20 ,CR 1.3 ,AST 16 ,ALT13 06/17/17: Na 137 ,K 4.8 , CL 96 ,CO2 32 ,GLU 172 ,BUN 40 ,CR 1.57 ,HB 14.0, HT 42.9 06/17/17: CBC 9.5, HGB 14, HCT 42.9, PLT 330. 06/11/17: Na 134 ,K 4.5 ,CL 86 ,CO2 35 ,GLU 173,BUN 66 ,CR 2.69 , AST 21,ALT 14 05/28/17: Na 137 ,K 4.5 , CL 97 ,CO2 29,GLU 162 ,BUN 19 ,CR 0.77, 05/21/17: WBC 10.4, HGB 14.8, HCT 45.1, PLT 328. 02/14/22 EKG: Atrial fibrillation with normal ventricular response, P; no analysis, QRS; low voltage in precordial leads, ST-T; normal, conclusion: abnormal ECG. EKG 04-04-2021: atrial fibrillation with normal ventricular response. P: no analysis. QRS: normal. ST-T: normal. conclusion: abnormal ECG. 11/30/20 EKG: AFib. QRS: normal. ST-T: normal. conclusion: abnormal ECG. 07/13/20 EKG: A FIB 01/25/20 EKG: Atrial Fibrillation 04/08/19 EKG: probably atrial fibrillation EKG 12/08/18: EKG machine before i could print. EKG 10/01/18 : Probably Atrial Fibrillation. EK04/02/18 Probably atrial fibrillation. EKG 12/03/17:Atrial fibrillation with slow ventricular response. Abnormal ECG. EKG 11/18/17: Atrial fibrillation with normal ventricular response. P: no analysis. QRS: normal. ST-T: normal. Additional remarks: long QT interval. Conclusion: abnormal ECG EKG 08/08/2017: Probably Atrial Fibrillation; Low voltage, chest leads; Non-specific inverted T waves, inferior leads EKG 06/26/17 : atrial fibrillation with normal ventricular response. P: no analysis. QRS: low voltage in precordial leads. ST-T: minor left precordial ST-T changes, probably aspecific change. small negative T in V4 V5. with flat or low negative T in V6. additional remarks: long QT interval. Conclusion: abnormal ECG EKG 06/03/17: Atrial fibrillation. Low voltage, chest leads US, echocardiogram [id number] chamber size is normal. There is normal global systolic function and contractility. The estimated left ventricle ejection fraction is 55-60% (normal). ECHO 12/20/20:Atrial fibrillation is present,LV chamber size is normal,there is borderline LVH,The estimated LVEF is 55-60%(nornmal),diasto lic function is indetermionate due to atrial fibrillation,there is trace tricuspid regurgitation,there is minimal pulmonic regurgitation. ECHO 08/06/19:LV chamber size is normal,LV wall thickness is normal,EF 55-60%,diastolic function is ndeterminate due to atrial fibrillation,the aortic valve is mildly calcifeid, there is mild aortic root calcification,the mitral valve leaflet is mildly thickened,atrial fibrillation. Dobutamine Myocardial Perfusion Study 07/30/17 : Negative dobutamine stress test for ischemia. Normal LV systolic function. Abnormal stress test. Artifact noted. No previous study to compare. LVEF >60%. CXR 07/14/2020: No acute cardiopulmonary abnormality. XR, Chest 05/28/17:no significance change of diffuse bilateral pulmonary infiltrates since 05/21/17,greater in the lower lung zones. ECHO 05/22/17:Normal LV size,mild LVH, Normal global LV systolic function,EF 67%,atrial fibrillation, technically difficult study with limited views, Aortic root is mildly dilated , diastolic function difficult to determine in the setting of atrial fibrillation. US, doppler, venous [id number] Duplex Negative left-sided venous Doppler study. US, Doppler, Venous 08/23/17 : Negative right venous study. 12/06/21-CTA Chest.Stable fusiform ascending thoracic aortic aneurysm measuring 4 cm. Mediastinal and hilar lymphadenopathy, most likely reactive, although metastatic disease and lymphoma should be considered. Diffuse groundglass opacification which may reflect atelectasis, pneumonia and or edema. Had CT of chest with contrast 11/23/20: ectasia of ascending aorta measuring 4.[address] of chest 06/26/18: ectasia of ascending aorta 4.[address] of chest 11/25/17 : The ascending aorta measuring 4.2 cm, stable. There is pleural based intraparenchymal air space disease in the medial aspect of the rightlower lobe measuring 9x 16 mm which is new compared to previous exam, needs 3mo f/u. 03-27-2021 LHC:Mild CAD. Normal left ventricular function. Elevated left ventricular end-diastolic pressure. Franco sinha ID - [facility] 11/14/2022 15:16:36 OBGyn Episode No OBEpisode recorded.
--- OUTSIDE RECORDS SUMMARY | 2024-07-12 05:41 | XMS_ITS | Encounter Summary ---
Author Organization [facility] Address [address] [place] [address] Care Team Providers Care Prop Sawyer Name Role Phone John Gomez Cassia DO Primary Care Provider [phone] Encounter Details Date Type Department Care Team (Late st Contact Info) Description 06/19/2022 Orders Only [facility] [address] [place] [address], [place] [address] Pastora Roy PA [address] [place] [address] 3 [place] [id number] Social History Tobacco Use Types Packs/Day Years Used Date Smoking Tobacco: Never Smokeless Tobacco: Never Alcohol Use Standard Drinks/Week Comments No 0 (1 standard drink = 0.6 oz pur e alcohol) Sex and Gender Information Value Date Recorded Sex Assigned at Not on file Gender Identity Not on file Sexual Orientation Not on file documented as of this encounter Plan of Treatment Not on file documented as of this encounter Procedures Procedure Name Priority Date/Time Associated Diagnosis Comments QUANTIFERON-TB GOLD PLUS 1-TUBE 06/19/2022 3:03 PM HOME HEALTH OUTREACH COORDINATOR documented in this encounter Results * QUANTIFERON-TB GOLD PLUS 1-TUBE (06/19/2022 3:03 PM HOME HEALTH OUTREACH COORDINATOR) Pathologist [facility] QuantiFERON TB Gold Plus NEGATIVE NEGATIVE [facility] Comment: Negative test result. M. tuberculosis complex infection unlikely. NIL 0.02 IU/mL [facility] MITOGEN MINUS NIL RESULT >10.00 IU/mL [facility] TB1-NIL 0.01 IU/mL [facility] TB2-NIL 0.01 IU/mL [facility] Comment: The Nil tube value reflects the background interferon gamma immune response of the patient's blood sample. This value has been subtracted from the patient's displayed TB and Mitogen results. Lower than expected results with the Mitogen tube prevent false-negative Quantiferon readings by detecting a patient with a potential immune suppressive condition and/or suboptimal pre-analytical specimen handling. The TB1 Antigen tube is coated with the M. tuberculosis-specific antigens designed to elicit responses from TB antigen primed CD4+ helper T-lymphocytes. The TB2 Antigen tube is coated with the M. tuberculosis-specific antigens designed to elicit responses from TB antigen primed CD4+ helper and CD8+ cytotoxic T-lymphocytes. For additional information, please refer to https://education.[employer]/faq/FFN410 (This link is being provided for informational/ educational purposes only.) Test Performed at: [facility] [id number] [place], [place] ??[phone] ISABELLA RODRIGUEZ DO,MPH 06/19/2022 3:03 PM HOME HEALTH OUTREACH COORDINATOR 06/19/2022 3:03 PM HOME HEALTH OUTREACH COORDINATOR [facility] - CHEMISTRY ABHISHEK TREVIÑO [facility] Organization Address City/State/[facility] Co de Phone Number [facility] [address] [place] [address] documented in this encounter Visit Diagnoses Not on filedocumented in this encounter Care Teams Prop Sawyer Relationship Specialty Start Date End Date John Gomez DO [address] [place], [place] [id number] PCP - General 04/11/21 documented as of this encounter
--- OUTSIDE RECORDS SUMMARY | 2024-07-12 05:41 | XMS_ITS | Encounter Summary ---
Author Organization [facility] Address [address] [facility] [place] [address] Care Team Providers Care Information Systems Operator Name Role Phone John Gomez Cassia DO Primary Care Provider [phone] Encounter Details Date Type Department Care Team (Late st Contact Info) Description 05/31/2021 Orders Only [facility] [address] [place] [address], [place] [address] Pastora Roy PA [address] [place] [address] [address] [place] [phone] Social History Tobacco Use Types Packs/Day Years [...] Associated Diagnosis Comments QUANTIFERON-TB GOLD PLUS 1-TUBE 05/31/2021 12:27 PM JAVA WEB APPLICATION DEVELOPER documented in this encounter Results * QUANTIFERON-TB GOLD PLUS 1-TUBE (05/31/2021 12:27 PM JAVA WEB APPLICATION DEVELOPER) Pathologist [facility] QuantiFERON TB Gold Plus NEGATIVE NEGATIVE [facility] Comment: Negative test result. M. tuberculosis complex infection unlikely. NIL 0.02 IU/mL [facility] MITOGEN MINUS NIL RESULT >10.00 IU/mL [facility] TB1-NIL 0.00 IU/mL [facility] TB2-NIL 0.00 IU/mL [facility] Comment: The Nil tube value [...] T-lymphocytes. For additional information, please refer to https://education.[employer]/faq/VKY377 (This link is being provided for informational/ educational purposes only.) REPORT COMMENT: FASTING:NO Test Performed at: [facility] [address] [place], [place] ??[phone] ISABELLA RODRIGUEZ DO,MPH 05/31/2021 12:2 7 PM JAVA WEB APPLICATION DEVELOPER 05/31/2021 12:29 PM JAVA WEB APPLICATION DEVELOPER [facility] - CHEMISTRY ABHISHEK [facility] Organization Address City/State/ZIP Co de Phone Number [facility] [address] [place] [address] documented in this encounter Visit Diagnoses Not on filedocumented in this encounter Care Teams Information Systems Operator Relationship Specialty Start Date End Date John Gomez DO [address] [place] [address] PCP - General 04/11/21 documented as of this encounter
--- OUTSIDE RECORDS SUMMARY | 2024-07-12 05:41 | XMS_ITS | Referral Summary ---
Author Organization [facility] Address [address] [facility] [place] [address] Care Team Providers Care Pediatrician Active Practice Name Role Phone PatriciaJohn andrade DO Primary Care Provider [phone] Source Comments [facility],non-owned Affiliates and Associated Physician Practices is amultiple site organization consisting of ambulatory clinics and hospital sitesin [place], [place], [place] and [place]. This disclosure is being madepursuant to the Care Everywhere program and may not contain all information available regarding this patient. Last updated 18.[facility] Allergies Active Allergy Reactions Criticality Noted Date Comments Cefuroxime Itching Low 06/12/2021 Cefuroxime Axetil Other Low 12/13/2016 Pt doesn't know Ciprofloxacin Other Low 12/13/2016 Pt doesn't know Citalopram Other Low 12/13/2016 Pt doesn't know Codeine Itching Low 12/13/2016 Erythromycin Itching Low 12/13/2016 Levofloxacin Itching Low 12/13/2016 Lidocaine Itching Low 12/13/2016 All cande Sulfa Drugs Itching Low 12/13/2016 Sulfamethoxazole W-Trimethoprim Itching Low 11/29 Theophylline Itching Low 06/12/2021 Theophyllines Other Low 12/13/2016 Pt doesn't know Medications * Be aware that medications may not be up to date on this document. Alwaysverify current medications with the patient. Medication Sig Dispensed Refills Start Date End Date Status ondansetron (ZOFRAN) 8 MG tablet Take 8 mg by mouth q8h PRN (Nausea). 15 tablet 0 01/03/2017 Active Vitamins/Minerals TABS 1 (one) tablet DAILY 12/13/2016 Acti ve escitalopram (LEXAPRO) 20 MG tablet Take 1 (one) tablet by mouth DAILY 12/13/2016 Active Magnesium Aspartate 65 MG Take 64 mg by mouth BID 12/13/2016 Active Calcium 500-125 MG-UNIT Take 1 tablet by mouth DAILY. 12/13/2016 Active busPIRone (BUSPAR) 15 MG tablet 1 (one) tablet TID 09/13/2016 Active FREESTYLE LANCETS [facility] 09/20/2016 Active blood glucose (FREESTYLE LITE STRIPS) test strip 08/16/2016 Active metFORMIN (GLUCOPHAGE) 1000 MG tablet 1,000 mg BID. 09/13/2016 Active escitalopram (LEXAPRO) 10 MG tablet 1 (one) tablet 09/13/2016 Active QUEtiapine (SEROQUEL) 100 MG tablet 1.5 (one and one-half) tablets DAILY 09/15/2016 Active BASAGLAR KWIKPEN (BASAGLAR) pen 80 Units. 10/02/2016 Active metoprolol succinate XL 24hr (TOPROL XL) 50 MG tablet 50 mg DAILY. 09/13/2016 Active insulin pen needle (NOVOFINE) 32G X 6 MM [facility] 08/13/2016 Active levothyroxine (SYNTHROID) 112 MCG tablet 150 mcg 09/13/2016 Active traMADol (ULTRAM) 50 MG tablet Take 1 (one) tablet by mouth every 6 hours as needed pain 09/04/2019 Active warfarin (COUMADIN) 2 MG tablet warfarin 2 mg tablet TAKE ONE TABLET BY MOUTH ONCE DAILY AT BEDTIME Active rosuvastatin (CRESTOR) 20 MG tablet Take 20 mg by mouth once daily 01/25/2020 Active lisinopril (PRINIVIL;ZESTRIL ) 5 MG tablet lisinopril 5 mg tablet TAKE 1 TABLET BY MOUTH ONCE DAILY Active albuterol HFA (PROVENTIL; VENTOLIN; PROAIR) 108 (90 Base) MCG/ACT inhaler Inhale 1 puff by mouth every 4 hours as needed Active dilTIAZem ER 24hr (TIAZAC) 120 MG capsule Take 1 (one) capsule by mouth once daily 10/02/2021 Active ADMELOG SOLOSTAR 100 UNIT/ML pen Inject 9 (nine) Units subcutaneously 3 times daily 10/23/2021 Active lisinopril (PRINIVIL;ZESTRIL ) 5 MG tablet Take 1 (one) tablet by mouth once daily Active pravastatin (PRAVACHOL) 40 MG tablet Take 40 mg by mouth once daily 09/17/2021 Active Basaglar KwikPen (BASAGLAR) pen Inject 80 Units subcutaneously 2 times daily Active metoprolol succinate XL 24hr (TOPROL XL) 25 MG tablet Take 1 (one) tablet by mouth once daily 10/09/2021 Active Fluocinonide 0.1 %Indications:Othe r psoriasis Apply to psoriasis on arms, legs and torso twice daily. 30 days supply. 120 g 2 06/26/2022 Active hydrocortisone (Hytone) 2.5 % creamIndications: Other psoriasis Apply to face twice daily. 30 days supply. 30 g 4 06/26/2022 Active Cosentyx Sensoready, 300 MG, 150 MG/ML SOAJ penIndications:Ot her psoriasis INJECT 2 PENS SUBCUTANEOUSLY EVERY 28 DAYS 2 mL 11 07/20/2022 Active Active Problems Problem Noted Date Diagnosed Date Atrial fibrillation 05/31/2017 Aortic aneurysm 05/31/2017 Chronic obstructive lung disease 05/31/2017 Type 2 diabetes mellitus 05/31/2017 HTN (hypertension), benign 05/31/2017 Sleep apnea 05/31/2017 Psoriatic arthritis 05/31/2017 Arthropathic psoriasis 03/07/2017 Primary generalized (osteo)arthritis 03/07/2017 Primary osteoarthritis involving multiple joints 03/07/2017 Other mcc (current) drug therapy 7 Other psoriasis 10/14/2016 Other seborrheic dermatitis 10/14/2016 Social History Tobacco Use Types Packs/Day Years Used Date Smoking Tobacco: Never Smokeless Tobacco: Never Alcohol Use Standard Drinks/Week Comments No 0 (1 standard drink = 0.6 oz pur e alcohol) Sex and Gender Information Value Date Recorded Sex Assigned at Not on file Gender Identity Not on file Sexual Orientation Not on file Last Filed Vital Signs Vital Sign Reading Time Taken Comments Blood Pressure 122/80 10/25/2021 11:09 AM CDT Pulse 77 10/25/2021 11:09 AM CDT Temperature 36.3 ??C (97.3 ??F) 10/25/2021 1 1:09 AM CDT Respiratory Rate 18 03/07/2017 2:04 PM CDT Oxygen Saturation 94% 10/25/2021 11: 09 AM CDT Inhaled Oxygen Concentration - - Weight 147.5 kg (325 lb 3.2 oz) 022 11:09 AM CDT Height 170.2 cm (5' 7 ) 10/25/2021 11:0 9 AM CDT Body Mass Index 50.93 10/25/2021 11:09 AM CDT Plan of Treatment Not on file Procedures Procedure Name Priority Date/Time Associated Diagnosis Comments COMPREHENSIVE METABOLIC PANEL Routine 06/19/2022 3:03 PM PAN GREASER Other intermission coordinator (current) drug therapy HEPATITIS C AB W/RFLX TO HCV RNA QN PCR 03/04/2020 9:54 AM CDT from Last 3 Months or Most Recently Relevant to Health Maintenance Results * (ABNORMAL) COMPREHENSIVE METABOLIC PANEL (06/19/2022 3:03 PM PAN GREASER) Glucose 102(H) 65 - 99 mg/dL [facility] [...] 29 U/L [facility] Comment: Test Performed at: [facility] [address] [place], [place] ??[phone] ISABELLA RODRIGUEZ DO,MPH Blood BLOOD SPECIMEN / Unknown 06/19/2022 3:03 PM PAN GREASER 06/19/2022 3:03 PM PAN GREASER [facility] - CHEMISTRY ABHISHEK TREVIÑO Performing Organization Address [facility] Co de Phone Number [facility] [address] [place] [address] * HEPATITIS C AB W/RFLX TO HCV RNA QN PCR (03/04/2020 9:54 AM CDT) Hepatitis C Antibody NON-REACTI VE NON-REACT CASTRO [facility] Signal to Cut-Off 0.03 <1.00 [facility] Comment: HCV antibody was non-reactive. There is no laboratory evidence of HCV infection. In most cases, no further action is required. However, if recent HCV exposure is suspected, a test for HCV RNA (test code 51157) is suggested. For additional information please refer to http://education.[employer]/faq/ULX64j1 (This link is being provided for informational/ educational purposes only.) Test Performed at: [facility] [address] [place], [place] ??[phone] ISABELLA RODRIGUEZ DO,MPH 03/04/2020 9:54 AM CDT 03/04/2020 9:59 AM CDT Stephy Fitzpatrick MD LAB - CHEMISTRY ABHISHEK TREVIÑO Performing Organization Address City/[facility] Co de Phone Number [facility] [address] [place] [address] from Last 3 Months or Most Recently Relevant to Health Maintenance Care Teams Pediatrician Active Practice Relationship Specialty Start Date End Date John Gomez DO [address] [place] [address] PCP - General 04/11/21
--- OUTSIDE RECORDS SUMMARY | 2024-07-12 05:41 | XMS_ITS | Encounter Summary ---
Author Organization [facility] Address [address] [place] [address] Care Team Providers Care Ultrasound Supervisor Name Role Phone John Gomez DO Primary Care Provider [phone] Reason for Visit * Reason Comments Refill Request Encounter Details Date Type Department Care Team (Late st Contact Info) Description 07/19/2022 Refill [facility] [address] [place] [address], [place] [address] Pastora Roy PA [address] [place] [address] [address] [place] [address] Refill Request Social History Tobacco [...] * Telephone Encounter - Allyn Olmstead - 07/20/2022 1:19 PM CST ALESSIA 06/26/2022, NOV 05/2023, last neg quant gold 06/19/2023 Allyn Olmstead [facility] [employer] documented in this encounter Plan of Treatment Not on file documented as of this encounter Visit Diagnoses Diagnosis Other psoriasis documented in this encounter Care Teams Ultrasound Supervisor Relationship Specialty Start Date End Date John Gomez DO [address] [place] [address] PCP - General 04/11/21 documented as of this encounter
--- OUTSIDE RECORDS SUMMARY | 2024-07-12 05:41 | XMS_ITS | Encounter Summary ---
Author Organization [facility] Address [address] [facility] [place] [address] Care Team Providers Care Truck Railroad And Bus Motor Mechanic Name Role Phone John Gomez DO Primary Care Provider [phone] Reason for Visit * Reason Comments Psoriasis Encounter Details Date Type Department Care Team (Late st Contact Info) Description 06/26/2022 3:30 PM CONSULTING INTERN Office Visit [facility] [address] [place] [address], [facility] [place] [place] [address] Pastora Roy PA [address] [place] [address] [place] [address] Other mcc (current) drug therapy (Primary Dx); Other psoriasis Social History Tobacco Use Types Packs/Day Years Used Date Smoking Tobacco: Never Smokeless Tobacco: Never Alcohol Use Standard Drinks/Week Comments No 0 (1 standard drink = 0.6 oz pur e alcohol) Sex and Gender Information Value Date Recorded Sex Assigned at Not on file Gender Identity Not on file Sexual Orientation Not on file documented as of this encounter Progress Notes * Pastora Roy PA - 06/26/2022 3:16 PM CST Chief Complaint Patient presents with ??? Psoriasis HPI: Carol Gee a 66 year old female presents for follow up of psoriasis . Also with PsA Patient was last seen on May 2021 Concerns: Recently put on oral steroid for a back injury and skin is much improved Status of condition: Not controlled with cosentyx Current treatment: cosentyx 300 mg every 28 days Fluocinonide 0.1% ointment prn but has not been using it Hydrocortisone 2.5% cream to face prn when not controlled Prior failed therapy Choices somewhat limited by her insurance based on formulary but we could try to get her in anotherpatient assistance program Patient must have documented failure of TWO of the following oral therapies AND NBUVB : ---Methotrexate FAILED did not help her joints ---Azathiprine HAS NOT TRIED but not good choice for psoriasis or psa ---CyA HAS NOT TRIED but would like to avoid due to her decreased renal function ---Acitretin HAS NOT TRIED but would not address her Joints ---Otezla HAS NOT TRIED but would like to avoid due to h/o depression -- humira failed therapy NBUVB 2016 did not clear skin -If they have, they have to try and fail Infliximab and Humira before trying other biologics . She had failed humira so I do not think infliximab would be very helpful for her skin ?? Side effects of treatment: No fevers, chills, cough, weight loss, shortness of breath, change in edema, numbness or tingling. Current Outpatient Medications on File Prior to Visit Medication Sig Dispense Refill ??? ADMELOG SOLOSTAR 100 UNIT/ML pen Inject 9 (nine) Units subcutaneously 3 times daily ??? albuterol HFA (PROVENTIL; VENTOLIN; PROAIR) 108 (90 Base) MCG/ACT inhaler Inhale 1 puff by mouth every 4 hours as needed ??? Basaglar KwikPen (BASAGLAR) pen Inject 80 Units subcutaneously 2 times daily ??? BASAGLAR KWIKPEN (BASAGLAR) pen 80 Units. ??? blood glucose (FREESTYLE LITE STRIPS) test strip ??? busPIRone (BUSPAR) 15 MG tablet 1 (one) tablet TID ??? Calcium 500-125 MG-UNIT Take 1 tablet by mouth DAILY. (Patient not taking: Reported on 03/02/2020) ??? dilTIAZem ER 24hr (TIAZAC) 120 MG capsule Take 1 (one) capsule by mouth once daily ??? escitalopram (LEXAPRO) 10 MG tablet 1 (one) tablet ??? escitalopram (LEXAPRO) 20 MG tablet Take 1 (one) tablet by mouth DAILY ??? FREESTYLE LANCETS MISC ??? insulin pen needle (NOVOFINE) 32G X 6 MM MISC ??? levothyroxine (SYNTHROID) 112 MCG tablet 150 mcg ??? lisinopril (PRINIVIL;ZESTRIL) 5 MG tablet Take 1 (one) tablet by mouth once daily ??? lisinopril (PRINIVIL;ZESTRIL) 5 MG tablet lisinopril 5 mg tablet TAKE 1 TABLET BY MOUTH ONCE DAILY (Patient not taking: Reported on 06/26/2022) ??? Magnesium Aspartate 65 MG Take 64 mg by mouth BID ??? metFORMIN (GLUCOPHAGE) 1000 MG tablet 1,000 mg BID. (Patient not taking: Reported on 06/26/2022) ??? metoprolol succinate XL 24hr (TOPROL XL) 25 MG tablet Take 1 (one) tablet by mouth once daily ??? metoprolol succinate XL 24hr (TOPROL XL) 50 MG tablet 50 mg DAILY. (Patient not taking: Reported on 06/26/2022) ??? ondansetron (ZOFRAN) 8 MG tablet Take 8 mg by mouth q8h PRN (Nausea). 15 tablet 0 ??? pravastatin (PRAVACHOL) 40 MG tablet Take 40 mg by mouth once daily (Patient not taking: Reported on 06/26/2022) ??? QUEtiapine (SEROQUEL) 100 MG tablet 1.5 (one and one-half) tablets DAILY ??? rosuvastatin (CRESTOR) 20 MG tablet Take 20 mg by mouth once daily ??? traMADol (ULTRAM) 50 MG tablet Take 1 (one) tablet by mouth every 6 hours as needed pain ??? Vitamins/Minerals TABS 1 (one) tablet DAILY ??? warfarin (COUMADIN) 2 MG tablet warfarin 2 mg tablet TAKE ONE TABLET BY MOUTH ONCE DAILY AT BEDTIME No current facility-administered medications on file prior to visit. Patient Active Problem List: Arthropathic psoriasis (CMS/HCC) Primary generalized (osteo)arthritis Other intermediate designer (current) drug therapy Other psoriasis Other seborrheic dermatitis Atrial fibrillation (CMS/HCC) Aortic aneurysm (CMS/HCC) Chronic obstructive lung disease (CMS/HCC) Type 2 diabetes mellitus (CMS/HCC) HTN (hypertension), benign Primary osteoarthritis involving multiple joints Sleep apnea Psoriatic arthritis (CMS/HCC) Lab Results Component Value Date HEPAIGM NON-REACTIVE 11/07/2016 HEPBIGM NON-REACTIVE 11/07/2016 HEPCAB NON-REACTIVE 11/07/2016 No results found for: [id number] Lab Results Component Value Date WBC 8.5 06/19/2022 HGB 14.3 06/19/2022 HCT 42.9 06/19/2022 MCV 86.0 06/19/2022 PLT 213 05/09/2017 Lab Results Component Value Date ALT 14 06/19/2022 AST 15 06/19/2022 ALKPHOS 92 06/19/2022 Recent Labs Component Name 06/19/22 1503 05/31/21 1227 03/04/20 0954 11/07/16 1353 QUANTIFER - - - NEGATIVE QNTTBGOLD NEGATIVE NEGATIVE NEGATIVE - PE: No acute distress. Mood clear/affect appropriate. Alert and oriented. Mucous membranes moist. Sclera anicteric. done. Full body skin exam was conducted to include the scalp, face, lips/teeth, lids/conjunctiva, ears, neck, chest, abdomen, back, groin/buttock, right and left hands and forearms, right and left leg and feet and was normal with the following exceptions: Scaly pink patches and plaques on scalp, torso and extremities Body Surface Area: 25% A/P: Check CBC and LFT's . Carlo was seen today for psoriasis. Diagnoses and all orders for this visit: Other intermediate designer (current) drug therapy We reviewed lab results from May 2022 Cbc, cmp , quant gold once a year Other psoriasis She is hesitant to consider other therapies although not controlled skin (joints ok) Consider Skyrizi or Stelara she has printed information Also consider adding topical Vtama or Zoryve but BSA make this not the best choice Unable to restart light therapy at this time - secukinumab (Cosentyx Sensoready, 300 MG,) 150 MG/ML SOAJ pen; INJECT 2 PENS SUBCUTANEOUSLY EVERY28 DAYS - Fluocinonide 0.1 %; Apply to psoriasis on arms, legs and torso twice daily when severe . 30 days supply. Triamcinolone ointment from neck down BID prn - hydrocortisone (Hytone) 2.5 % cream; Apply to face twice daily. 30 days supply. Follow up in 3 months or sooner if she decides to change systemic therapy STEPHANY Schmitz PA ULTING INTERN documented in this encounter Plan of Treatment Not on file documented as of this encounter Visit Diagnoses Diagnosis Other mcc (current) drug therapy- Primary Other psoriasis documented in this encounter Care Teams Truck Railroad And Bus Motor Mechanic Relationship Specialty Start Date End Date John Gomez DO [address] [place] [address] PCP - General 04/11/21 documented as of this encounter
--- OUTSIDE RECORDS SUMMARY | 2024-07-12 05:41 | XMS_ITS | Encounter Summary ---
Author Organization [facility] Address [address] [facility] [place] [address] Care Team Providers Care Welfare Service Aide Name Role Phone Guero Gomezdie Cassia DO Primary Care Provider [phone] Reason for Visit * Reason Comments Refill Request Encounter Details Date Type Department Care Team (Late st Contact Info) Description 05/07/2022 Refill [facility] [address] [place] [address], [place] [address] Pastora Roy PA [address] [place] [address] [address] [place] [address] Refill Request Social History Tobacco [...] * Telephone Encounter - Allyn Olmstead - 05/08/2022 1:46 PM CST ALESSIA 06/12/2021 NOV 06/26/2022 last neg quant gold 05/31/2021, rx sent until MAY Allyn Olmstead Biologics Coordinator AL CAREGIVER * Telephone Encounter - Honey Benitez - 05/08/2022 9:55 AM CST Pt calling for refill, message was sent up yesterday AL CAREGIVER documented in this encounter Plan of Treatment Not on file documented as of this encounter Visit Diagnoses Diagnosis Other psoriasis documented in this encounter Care Teams Welfare Service Aide Relationship Specialty Start Date End Date John Gomez DO [address] [place] [address] PCP - General 04/11/21 documented as of this encounter
--- OUTSIDE RECORDS SUMMARY | 2024-07-12 05:41 | XMS_ITS | Encounter Summary ---
Author Organization [facility] Address [address] [place] [address] Care Team Providers Care Security Police Name Role Phone Patricia John Cassia DO Primary Care Provider [phone] Reason for Visit * Reason Comments Psoriasis follow up Encounter Details Date Type Department Care Team (Late st Contact Info) Description 06/12/2021 2:30 PM ADMINISTRATION SPECIALIST Office Visit [facility] [address] [place] [address], [place] [address] [place] [address] [place] [address] [address] [place] [address] Other psoriasis (Primary Dx); Psoriatic arthritis (HCC); Other school manager (current) drug therapy Social History Tobacco Use Types Packs/Day Years Used Date Smoking Tobacco: Never Smokeless Tobacco: Never Alcohol Use Standard Drinks/Week Comments No 0 (1 standard drink = 0.6 oz pur e alcohol) Sex and Gender Information Value Date Recorded Sex Assigned at Not on file Gender Identity Not on file Sexual Orientation Not on file documented as of this encounter Patient Instructions * Patient Instructions* Pastora Roy PA - 06/12/2021 2:28 PM ADMINISTRATION SPECIALIST Follow up in August [facility] -Patient must have documented failure of TWO of the following oral therapies AND NBUVB : ---Methotrexate ---Azathiprine ---CyA ---Acitretin ---Otezla -If they have, they have to try and fail Infliximab and Humira before trying other biologics - NISTRATION SPECIALIST documented in this encounter Progress Notes * Maren Hudson MD - 06/22/2021 1:22 PM CST Attending Physician's Note Physician Hide Paster's assessment and care plan reviewed. I agree with the plan as documented by thePhysician Hide Paster today Maren Hudson MD NISTRATION SPECIALIST * Pastora Roy PA - 06/12/2021 2:17 PM CST Chief Complaint Patient presents with ??? Psoriasis follow up HPI: Carol Gee a 65 year old female presents for follow up of psoriasis Also with PsA . Sees Dr Fitzpatrick . Last seen November 2020 Patient was last seen on mar 2020 Concerns: Arms and legs improved but still itching Status of condition: Flared Current treatment: cosentyx 300 mg every 1 months Says she cannot use triamcinolone ointment because it makes her feel smothered . So she is not using a topical steroid Prior tx enbrel humira helped skin but not joints Ketoconazole shampoo mtx helped joints but not skin NBUVB in 2017 Side effects of treatment: No fevers, chills, cough, weight loss, shortness of breath, change in edema, numbness or tingling. Denies Lab Results Component Value Date HEPAIGM NON-REACTIVE 11/07/2016 HEPBIGM NON-REACTIVE 11/07/2016 HEPCAB NON-REACTIVE 11/07/2016 No results found for: HIV1X2 Lab Results Component Value Date WBC 6.9 05/31/2021 HGB 14.0 05/31/2021 HCT 42.8 05/31/2021 MCV 84.6 05/31/2021 PLT 213 05/09/2017 Lab Results Component Value Date ALT 14 05/31/2021 AST 23 05/31/2021 ALKPHOS 80 05/31/2021 Recent Labs Component Name 05/31/21 1227 03/04/20 0954 11/07/16 1353 QUANTIFER - - NEGATIVE QNTTBGOLD NEGATIVE NEGATIVE - PE: No acute distress. Mood clear/affect appropriate. Alert and oriented. Mucous membranes moist. Sclera anicteric. Full body skin exam was conducted to include the scalp, face, lips/teeth, lids/conjunctiva, ears, neck, chest, abdomen, back, groin/buttock, right and left hands and forearms, right and left leg and feet and was normal with the following exceptions: Scaly pink patches and plaques on scalp, face, arms, legs, and torso Body Surface Area: 20% A/P: Check CBC and LFT's . Carol was seen today for psoriasis. Diagnoses and all orders for this visit: Other psoriasis - Fluocinonide 0.1 %; Apply to psoriasis on arms, legs and torso twice daily. 30 days supply. - hydrocortisone (HYTONE) 2.5 % cream; Apply to face twice daily. 30 days supply. cosentyx 300 mg . Not well controlled on monotherapy Advised to start topical steroid for now She does not like ointments We discussed change to another biologic Choices somewhat limited by her insurance based on formulary but we could try to get her in anotherpatient assistance program Patient must have documented failure of TWO of the following oral therapies AND NBUVB : ---Methotrexate FAILED ---Azathiprine HAS NOT TRIED but not good choice for psoriasis or psa ---CyA HAS NOT TRIED but would like to avoid due to her decreased renal function ---Acitretin HAS NOT TRIED but would not address her Joints ---Otezla HAS NOT TRIED but would like to avoid due to h/o depression -If they have, they have to try and fail Infliximab and Humira before trying other biologics . She had failed humira so I do not think infliximab would be very helpful for her skin She wants to wait to see Head Sawyer before considering a change in therapy Psoriatic arthritis Discuss with Rheum then follow up after that visit She says joint pain not much improved but denies swelling Other alf (current) drug therapy CBC, CMP, quant gold May 2022 One box sample cosentyx given to patient while getting her new approval Exp october 2021 Lot [id number] JANNA Yepez NISTRATION SPECIALIST documented in this encounter Plan of Treatment Not on file documented as of this encounter Visit Diagnoses Diagnosis Other psoriasis- Primary Psoriatic arthritis (HCC) Psoriatic arthropathy Other alf (current) drug therapy documented in this encounter Care Teams Security Police Relationship Specialty Start Date End Date John Gomez DO [address] [address] PCP - General 04/11/21 documented as of this encounter
--- OUTSIDE RECORDS SUMMARY | 2024-07-12 05:41 | XMS_ITS | Encounter Summary ---
Author Organization [facility] Address [address] [place] [address] Care Team Providers Care Boiler Water Tester Name Role Phone PatriciaWildere Cassia RODRIGUEZ Primary Care Provider [phone] Reason for Visit * Reason Onset Date Comments Medication Prior Auth Request 06/07/2022 Encounter Details Date Type Department Care Team (Late st Contact Info) Description 06/07/2022 Telephone [facility] [address] [place] [address], [facility] [place] [address] Pastora Roy PA [facility] [address] [place] [address] Medication Prior Auth Request Social History Tobacco Use Types Packs/Day [...] * Telephone Encounter - Allyn Olmstead - 06/11/2022 5:55 PM CST I sent pt a reminder to have labs completed on 05/30/2022 via Particle Code and orders were sent at that time. Pt read Particle Code message. Allyn Olmstead Biologics Coordinator R MACHINE OPERATOR * Telephone Encounter - Laurie Pina - 06/07/2022 2:15 PM CST Current Provider name: NERIS Reason for call: PT STATES THAT PHARMACY CAN'T FILL HER PRESCRIPTION WITHOUT BLOOD WORK. BLOOD ORDERS NEEDS TO BE SEND TO [facility]. AND PT WANTS A CALL BACK. FAX: [phone] Patient Call Back number: [phone] R MACHINE OPERATOR documented in this encounter Plan of Treatment Not on file documented as of this encounter Visit Diagnoses Not on filedocumented in this encounter Care Teams Boiler Water Tester Relationship Specialty Start Date End Date John Gomez DO [address] [place] [address] PCP - General 04/11/21 documented as of this encounter
--- OUTSIDE RECORDS SUMMARY | 2024-07-12 05:41 | XMS_ITS | Patient Health Summary ---
Author Organization [facility] Address [address] [place] [address] Care Team Providers Care Police Detention Attendant Name Role Phone Patricia John Cassia RODRIGUEZ Primary Care Provider [phone] [facility],non-owned Affiliates and Associated Physician Practices is amultiple site organization consisting of ambulatory clinics and hospital sitesin [place], [place], [place] and [place]. This disclosure is being madepursuant to the Care Everywhere program and may not contain all information available regarding this patient. Last updated 18.[facility] Allergies * Cefuroxime(Itching) -Low Criticality * Cefuroxime Axetil(Other) -Low Criticality * Ciprofloxacin(Other) -Low Criticality * Citalopram(Other) -Low Criticality * Codeine(Itching) -Low Criticality * Erythromycin(Itching) -Low Criticality * Levofloxacin(Itching) -Low Criticality * Lidocaine(Itching) -Low Criticality * Sulfa Drugs(Itching) -Low Criticality * Sulfamethoxazole W-Trimethoprim(Itching) -Low Criticality * Theophylline(Itching) -Low Criticality * Theophyllines(Other) -Low Criticality Medications * Be aware that medications may not be up to date on this document. Alwaysverify current medications with the patient. * ondansetron (ZOFRAN) 8 MG tablet(Started 01/03/2017) Take 8 mg by mouth q8h PRN (Nausea). * Vitamins/Minerals TABS(Started 12/13/2016) 1 (one) tablet DAILY * escitalopram (LEXAPRO) 20 MG tablet(Started 12/13/2016) Take 1 (one) tablet by mouth DAILY * Magnesium Aspartate 65 MG(Started 12/13/2016) Take 64 mg by mouth BID * Calcium 500-125 MG-UNIT(Started 12/13/2016) Take 1 tablet by mouth DAILY. * busPIRone (BUSPAR) 15 MG tablet(Started 09/13/2016) 1 (one) tablet TID * FREESTYLE LANCETS MISC(Started 09/20/2016) * blood glucose (FREESTYLE LITE STRIPS) test strip(Started 08/16/2016) * metFORMIN (GLUCOPHAGE) 1000 MG tablet(Started 09/13/2016) 1,000 mg BID. * escitalopram (LEXAPRO) 10 MG tablet(Started 09/13/2016) 1 (one) tablet * QUEtiapine (SEROQUEL) 100 MG tablet(Started 09/15/2016) 1.5 (one and one-half) tablets DAILY * BASAGLAR KWIKPEN (BASAGLAR) pen(Started 10/02/2016) 80 Units. * metoprolol succinate XL 24hr (TOPROL XL) 50 MG tablet(Started 09/13/2016) 50 mg DAILY. * insulin pen needle (NOVOFINE) 32G X 6 MM [facility](Started 08/13/2016) * levothyroxine (SYNTHROID) 112 MCG tablet(Started 09/13/2016) 150 mcg * traMADol (ULTRAM) 50 MG tablet(Started 09/04/2019) Take 1 (one) tablet by mouth every 6 hours as needed pain * warfarin (COUMADIN) 2 MG tablet warfarin 2 mg tablet TAKE ONE TABLET BY MOUTH ONCE DAILY AT BEDTIME * rosuvastatin (CRESTOR) 20 MG tablet(Started 01/25/2020) Take 20 mg by mouth once daily * lisinopril (PRINIVIL;ZESTRIL) 5 MG tablet lisinopril 5 mg tablet TAKE 1 TABLET BY MOUTH ONCE DAILY * albuterol HFA (PROVENTIL; VENTOLIN; PROAIR) 108 (90 Base) MCG/ACT inhaler Inhale 1 puff by mouth every 4 hours as needed * dilTIAZem ER 24hr (TIAZAC) 120 MG capsule(Started 10/02/2021) Take 1 (one) capsule by mouth once daily * ADMELOG SOLOSTAR 100 UNIT/ML pen(Started 10/23/2021) Inject 9 (nine) Units subcutaneously 3 times daily * lisinopril (PRINIVIL;ZESTRIL) 5 MG tablet Take 1 (one) tablet by mouth once daily * pravastatin (PRAVACHOL) 40 MG tablet(Started 09/17/2021) Take 40 mg by mouth once daily * Basaglar KwikPen (BASAGLAR) pen Inject 80 Units subcutaneously 2 times daily * metoprolol succinate XL 24hr (TOPROL XL) 25 MG tablet(Started 10/09/2021) Take 1 (one) tablet by mouth once daily * Fluocinonide 0.1 %(Started 06/26/2022) Apply to psoriasis on arms, legs and torso twice daily. 30 days supply. 2 refills by 06/26/2023 * hydrocortisone (Hytone) 2.5 % cream(Started 06/26/2022) Apply to face twice daily. 30 days supply. 4 refills by 06/26/2023 * Cosentyx Sensoready, 300 MG, 150 MG/ML SOAJ pen(Started 07/20/2022) INJECT 2 PENS SUBCUTANEOUSLY EVERY 28 DAYS 11 refills by 07/20/2023 Active Problems Problem Noted Date Diagnosed Date Atrial fibrillation 05/31/2017 Aortic aneurysm 05/31/2017 Chronic obstructive lung disease 05/31/2017 Type 2 diabetes mellitus 05/31/2017 HTN (hypertension), benign 05/31/2017 Sleep apnea 05/31/2017 Psoriatic arthritis 05/31/2017 Arthropathic psoriasis 03/07/2017 Primary generalized (osteo)arthritis 03/07/2017 Primary osteoarthritis involving multiple joints 03/07/2017 Other senior care (current) drug therapy 7 Other psoriasis 10/14/2016 [...] Mass Index 50.93 10/25/2021 11:09 AM CDT Procedures * QUANTIFERON-TB GOLD PLUS 1-TUBE(Performed 06/19/2022) * COMPREHENSIVE METABOLIC PANEL(Performed 06/19/2022) Performed for Other terminal worker (current) drug therapy * CBC W AUTO DIFFERENTIAL(Performed 06/19/2022) Performed for Other senior care (current) drug therapy * QUANTIFERON-TB GOLD PLUS 1-TUBE(Performed 05/31/2021) * CBC W AUTO DIFFERENTIAL(Performed 05/31/2021) Performed for Other terminal worker (current) drug therapy * COMPREHENSIVE METABOLIC PANEL(Performed 05/31/2021) Performed for Other terminal worker (current) drug therapy * IMAGING/RADIOLOGY/XRAY RESULTS ORDER(Performed 03/04/2020) * QUANTIFERON-TB GOLD PLUS 1-TUBE(Performed 03/04/2020) * VITAMIN D 25-HYDROXY(Performed 03/04/2020) * HEPATITIS B CORE ANTIBODY REFLEX IGM(Performed 03/04/2020) * HEPATITIS B SURFACE ANTIBODY QUANT(Performed 03/04/2020) * HEPATITIS C AB W/RFLX TO HCV RNA QN PCR(Performed 03/04/2020) * CYCLIC CITRULLINATED PEPTIDE(CCP) AB IGG(Performed 03/04/2020) * C-REACTIVE PROTEIN(Performed 03/04/2020) * RHEUMATOID FACTOR BLOOD QUANTITATIVE(Performed 03/04/2020) * CBC W AUTO DIFFERENTIAL(Performed 03/04/2020) * ERYTHROCYTE SEDIMENTATION RATE(Performed 03/04/2020) * HLA TYPING B27(Performed 03/04/2020) * COMPREHENSIVE METABOLIC PANEL(Performed 03/04/2020) * URINALYSIS REFLEX TO MICROSCOPIC NO CULTURE(Performed 05/09/2017) * CBC W AUTO DIFFERENTIAL(Performed 05/09/2017) * COMPREHENSIVE METABOLIC PANEL(Performed 05/09/2017) * URINALYSIS W/MICROSCOPIC REFLEX TO CULTURE(Performed 03/18/2017) * COMPREHENSIVE METABOLIC PANEL(Performed 02/27/2017) * CBC W AUTO DIFFERENTIAL(Performed 02/27/2017) * URINALYSIS REFLEX TO MICROSCOPIC NO CULTURE(Performed 02/27/2017) * URINALYSIS REFLEX TO MICROSCOPIC NO CULTURE(Performed 12/31/2016) * CBC W AUTO DIFFERENTIAL(Performed 12/31/2016) * COMPREHENSIVE METABOLIC PANEL(Performed 12/31/2016) * CBC W AUTO DIFFERENTIAL(Performed 12/14/2016) * COMPREHENSIVE METABOLIC PANEL(Performed 12/14/2016) * NETWORK INFRASTRUCTURE ARCHITECT ANTIBODY(Performed 12/14/2016) * JIMENES (SM) ANTIBODY JAIME(Performed 12/14/2016) * SS-A/SS-B (SJOGREN'S) ANTIBODY PANEL(Performed 12/14/2016) * DNA ANTIBODY DS CRITHIDIA IFA(Performed 12/14/2016) * DNA ANTIBODY DOUBLE STRANDED(Performed 12/14/2016) * NEMO BLOOD SCREEN W/REFLEX TITER(Performed 12/14/2016) * CYCLIC CITRULLINATED PEPTIDE(CCP) AB IGG(Performed 12/14/2016) * RHEUMATOID FACTOR BLOOD QUANTITATIVE(Performed 12/14/2016) * C-REACTIVE PROTEIN(Performed 12/14/2016) * ERYTHROCYTE SEDIMENTATION RATE(Performed 12/14/2016) * VITAMIN D 25-HYDROXY(Performed 12/14/2016) * TSH(Performed 12/14/2016) * URINALYSIS W/MICROSCOPIC REFLEX TO CULTURE(Performed 12/14/2016) * CBC W AUTO DIFFERENTIAL(Performed 12/14/2016) * COMPREHENSIVE METABOLIC PANEL(Performed 12/14/2016) * HEPATITIS SCREEN ACUTE(Performed 11/07/2016) * COMPREHENSIVE METABOLIC PANEL(Performed 11/07/2016) * CBC W AUTO DIFFERENTIAL(Performed 11/07/2016) * QUANTIFERON TB-GOLD (CLIENT INCUBATED)(Performed 11/07/2016) * CULTURE URINE(Performed 04/29/2014) Results * QUANTIFERON-TB GOLD PLUS 1-TUBE (06/19/2022 3:03 PM ELECTRICAL PROSPECTOR) Only the most recent of3 resultswithin the time period is included. QuantiFERON TB Gold Plus NEGATIVE NEGATIVE [facility] [...] T-lymphocytes. For additional information, please refer to https://education.[employer]/faq/TDK089 (This link is being provided for informational/ educational purposes only.) Test Performed at: [employer] [facility] [address] [place], [place] ??[phone] ISABELLA RODRIGUEZ DO,MPH 06/19/2022 3:03 PM ELECTRICAL PROSPECTOR 06/19/2022 3:03 PM ELECTRICAL PROSPECTOR [facility] - CHEMISTRY ABHISHEK TREVIÑO [facility] Organization Address City/State/ZIP Co de Phone Number [facility] [phone] [place] [address] * CBC WITH DIFFERENTIAL (06/19/2022 3:03 PM ELECTRICAL PROSPECTOR) Only the most recent of9 resultswithin the time period is included. Pathologist [facility] White Blood Cell Count 8.5 3.8 - [...] 0.5 % [facility] Comment: Test Performed at: [employer] [address] [place], [place] ??[phone] ISABELLA RODRIGUEZ DO,MPH Blood BLOOD SPECIMEN / Unknown 06/19/2022 3:03 PM ELECTRICAL PROSPECTOR 06/19/2022 3:03 PM ELECTRICAL PROSPECTOR [facility] - HEMATOLOGY ORD ERABLES [facility] [address] [place] [address] * (ABNORMAL) COMPREHENSIVE METABOLIC PANEL (06/19/2022 3:03 PM ELECTRICAL PROSPECTOR) Only the most recent of9 resultswithin the time period is included. Pathologist [facility] Glucose 102(H) 65 - 99 mg/dL [facility] [...] 29 U/L [facility] Comment: Test Performed at: [employer] [address] [place], [place] ??[phone] ISABELLA RODRIGUEZ DO,MPH Blood BLOOD SPECIMEN / Unknown 06/19/2022 3:03 PM ELECTRICAL PROSPECTOR 06/19/2022 3:03 PM ELECTRICAL PROSPECTOR [facility] - CHEMISTRY ABHISHEK TREVIÑO [facility] [address] [place] [address] * IMAGING RADIOLOGY XRAY RESULTS ORDER (03/04/2020 3:20 PM CDT) Anatomical Region Laterality Modality Other Narrative 03/04/2020 3:20 PM CDT Ordered by an unspecified provider. Scanned Document IMAGING * HEPATITIS C AB W/RFLX TO HCV RNA QN PCR (03/04/2020 9:54 AM CDT) Hepatitis C Antibody NON-REACTI VE NON-REACT CASTRO [facility] Signal to Cut-Off 0.03 <1.00 [facility] Comment: HCV antibody was non-reactive. There is no laboratory evidence of HCV infection. In most cases, no further action is required. However, if recent HCV exposure is suspected, a test for HCV RNA (test code 33460) is suggested. For additional information please refer to http://education.[employer] (acquired by [employer] in 2014).[employer]/faq/ITH25m6 (This link is being provided for informational/ educational purposes only.) Test Performed at: [employer] [id number] [place], [place] ??[phone] ISABELLA RODRIGUEZ DO,MPH 03/04/2020 9:54 AM CDT 03/04/2020 9:59 AM CDT Stephy Fitzpatrick MD LAB - CHEMISTRY ORDYolanda TREVIÑO Performing Organization Address [facility] Co de Phone Number [facility] [address] [place] [address] * HEPATITIS B CORE ANTIBODY REFLEX IGM (03/04/2020 9:54 AM CDT) Pathologist [facility] Hepatitis B Core Virus Antibody Total NON-REACTI VE NON-REACT CASTRO [facility] Comment: Test Performed at: [employer] [address] [place], [place] ??[phone] ISABELLA RODRIGUEZ DO,MPH 03/04/2020 9:54 AM CDT 03/04/2020 9:59 AM CDT Stephy Fitzpatrick MD LAB - SEROLOGY ORDER MARK Performing Organization Address [facility] de Phone Number [facility] [phone] [place] [address] * (ABNORMAL) HEPATITIS B SURFACE ANTIBODY QUANT (03/04/2020 9:54 AM CDT) Pathologist [facility] Hepatitis B Virus Surface Antibody Quantitative <5(L) > OR = 10 mIU/mL [facility] Comment: Patient does not have immunity to hepatitis B virus. For additional information, please refer to http://education.[employer]/faq/GOX852 (This link is being provided for informational/ educational purposes only). Test Performed at: [employer] [id number] [place], [place] ??[phone] ISABELLA RODRIGUEZ DO,MPH 03/04/2020 9:54 AM CDT 03/04/2020 9:59 AM CDT Stephy Fitzpatrick MD LAB - SEROLOGY ORDER MARK Performing Organization Address [facility] Co de Phone Number [facility] [address] [place] [address] * RHEUMATOID FACTOR BLOOD QUANTITATIVE (03/04/2020 9:54 AM CDT) Only the most recent of2 resultswithin the time period is included. Pathologist [facility] Rheumatoid Factor <14 <14 IU/mL [facility] Comment: Test Performed at: [employer] [address] [place], [place] ??[phone] ISABELLA RODRIGUEZ DO,MPH 03/04/2020 9:54 AM CDT 03/04/2020 9:59 AM CDT Stephy Fitzpatrick MD LAB - CHEMISTRY ABHISHEK TREVIÑO Performing Organization Address [facility]/ZIP Co de Phone Number [facility] [phone] [place] [phone] * (ABNORMAL) C-REACTIVE PROTEIN (03/04/2020 9:54 AM CDT) Only the most recent of2 resultswithin the time period is included. C-Reactive Protein 20.4(H) <8.0 mg/L [facility] Comment: Test Performed at: [employer] [address] [place], [place] ??[phone] ISABELLA RODRIGUEZ DO,MPH 03/04/2020 9:54 AM CDT 03/04/2020 9:59 AM CDT Stephy Fitzpatrick MD LAB - CHEMISTRY ABHISHEK TREVIÑO Performing Organization Address [facility] Co de Phone Number [facility] [phone] [place] [address] * HLA TYPING B27 (03/04/2020 9:54 AM CDT) HLA-B27 Antigen NEGATIVE NEGATIVE [facility] Comment: Test Performed at: [employer]/[facility] [address] [place], [place] ??[phone] AGUS WEIR MD,PHD,FÉLIX 03/04/2020 9:54 AM CDT 03/04/2020 9:59 AM CDT Stephy Fitzpatrick MD LAB - CHEMISTRY ABHISHEK TREVIÑO Performing Organization Address [facility] Co de Phone Number [facility] [phone] [place] [address] * VITAMIN D 25-HYDROXY (03/04/2020 9:54 AM CDT) Only the most recent of2 resultswithin the time period is included. Vitamin D, 25 Hydroxy 31 30 - 100 ng/mL [facility] Comment: Vitamin D Status ? 25-OH Vitamin D: Deficiency: ?<20 ng/mL Insufficiency: ? 20 - 29 ng/mL Optimal: ? > or = 30 ng/mL For 25-OH Vitamin D testing on patients on D2-supplementation and patients for whom quantitation of D2 and D3 fractions is required, the QuestAssureD(TM) 25-OH VIT D, (D2,D3), LC/MS/MS is recommended: order code 33791 (patients >2yrs). See Note 1 Note 1 For additional information, please refer to http://education.[employer]/faq/JON681 (This link is being provided for informational/ educational purposes only.) Test Performed at: [employer] [id number] [place], [place] ??[phone] ISABELLA RODRIGUEZ DO,MPH 03/04/2020 9:54 AM CDT 03/04/2020 9:59 AM CDT Stephy Fitzpatrick MD LAB - CHEMISTRY ABHISHEK TREVIÑO [facility] Organization Address City/State/ZIP Co de Phone Number [facility] [address] [place] [address] * CYCLIC CITRULLINATED PEPTIDE(CCP) AB IGG (03/04/2020 9:54 AM CDT) Only the most recent of2 resultswithin the time period is included. Pathologist [facility] Cyclic Citrullinated Peptide Antibody IgG <16 UNITS [facility] Comment: Reference Range Negative: ?<20 Weak Positive: ? 20-39 Moderate Positive: ?? 40-59 Strong Positive: ? >59 Test Performed at: [employer] [address] [place], [place] ??[phone] ISABELLA RODRIGUEZ DO,MPH 03/04/2020 9:54 AM CDT 03/04/2020 9:59 AM CDT Stephy Fitzpatrick MD LAB - CHEMISTRY ABHISHEK TREVIÑO Performing Organization Address [facility] Co de Phone Number [address] [address] * (ABNORMAL) ERYTHROCYTE SEDIMENTATION RATE (03/04/2020 9:54 AM CDT) Only the most recent of2 resultswithin the time period is included. Erythrocyte Sedimentation Rate Westergren 34(H) < OR = 30 mm/h [facility] Comment: Test Performed at: [employer] ??[phone] RODOLFO NAM MD 03/04/2020 9:54 AM CDT 03/04/2020 9:59 AM CDT Stephy Fitzpatrick MD LAB - HEMATOLOGY JURGEN MCNEIL Performing Organization Address [facility] Co de Phone Number [address] [address] * (ABNORMAL) URINALYSIS REFLEX TO MICROSCOPIC NO CULTURE (05/09/2017 1:59 PM ELECTRICAL PROSPECTOR) Only the most recent of3 resultswithin the time period is included. Color UA YELLOW YELLOW [facility] (SL) Appearance CLOUDY(A) CLEAR [facility] ([facility]) Specific [place] UA 1.021 1.001 - 1.035 [facility] ([facility]) pH Urine 5.5 5.0 - 8.0 [facility] ([facility]) Glucose UA 3+(A) NEGATIVE [facility] ([facility]) Bilirubin UA NEGATIVE NEGATIVE [facility] ([facility]) Ketone UA TRACE(A) NEGATIVE [facility] ([facility]) Blood UA 1+(A) NEGATIVE [facility] ([facility]) Protein UA NEGATIVE NEGATIVE [facility] ([facility]) Nitrite UA POSITIVE(A) NEGATIVE [facility] ([facility]) Leukocyte Esterase 2+(A) NEGATIVE [facility] ([facility]) WBC Urine PACKED(A) < OR = 5 /HPF [facility] ([facility]) RBC Urine 10-20(A) < OR = 2 /HPF [facility] ([facility]) Squamous Epithelial Cells UA 0-5 < OR = 5 /HPF [facility] ([facility]) Transitional Epitelial Cells UA 0-5 < OR = 5 /HPF [facility] ([facility]) Bacteria UA FEW(A) NONE SEEN /HPF [facility] ([facility]) Calcium Oxalate UA FEW NONE OR FEW /HPF [facility] ([facility]) Hyaline Casts UA NONE SEEN NONE SEEN /LPF [facility] ([facility]) Comment: Test Performed at: [employer] [address] [place] ??[phone] ISABELLA RODRIGUEZ DO,MPH 05/09/2017 1:59 PM ELECTRICAL PROSPECTOR 05/09/2017 2:00 PM ELECTRICAL PROSPECTOR Yanni Song MD LAB - URIN ALYSIS ORDERABLES [facility] ([facility]) * (ABNORMAL) URINALYSIS W/MICROSCOPIC REFLEX TO CULTURE (03/18/2017 1:48 PM CDT) Only the most recent of2 resultswithin the time period is included. Color UA YELLOW YELLOW [facility] ([facility]) Appearance CLOUDY(A) CLEAR [facility] ([facility]) Specific [place] UA 1.021 1.001 - 1.035 [facility] ([facility]) pH Urine 5.5 5.0 - 8.0 [facility] ([facility]) Glucose UA NEGATIVE NEGATIVE [facility] ([facility]) Bilirubin UA NEGATIVE NEGATIVE [facility] ([facility]) Ketone UA NEGATIVE NEGATIVE [facility] ([facility]) Blood UA 1+(A) NEGATIVE [facility] ([facility]) Protein UA 1+(A) NEGATIVE [facility] ([facility]) Nitrite UA POSITIVE(A) NEGATIVE [facility] ([facility]) Leukocyte Esterase 3+(A) NEGATIVE [facility] ([facility]) WBC Urine PACKED(A) < OR = 5 /HPF [facility] ([facility]) RBC Urine 3-10(A) < OR = 2 /HPF [facility] ([facility]) Squamous Epithelial Cells UA 6-10(A) < OR = 5 /HPF [facility] ([facility]) Bacteria UA MANY(A) NONE SEEN /HPF [facility] ([facility]) Calcium Oxalate UA MANY(A) NONE OR FEW /HPF [facility] ([facility]) Hyaline Casts UA NONE SEEN NONE SEEN /LPF [facility] ([facility]) Culture Urine Comprehensive CULTURE INDICATED - RESULTS TO FOLLOW [facility] ([facility]) Urine Culture Routine SEE NOTE(A) [facility] ([facility]) Comment: ??CULTURE, URINE, ROUTINE ?MICRO NUMBER: ?[id number] ??TEST STATUS: ? FINAL ??SPECIMEN SOURCE: ?? URINE ??SPECIMEN QUALITY: ??ADEQUATE ??RESULT: ?10,000-50,000 CFU/mL of Escherichia coli ??COMMENT: ? Additional organism(s) less than 10,000 CFU/mL ? isolated. These organisms, commonly found on ? external and internal genitalia, are considered ? colonizers. No further testing performed. ?E.coli ?INT ?? EFRAIN ?? AMOX/CLAVULANATE ? S ? 4 ?? AMPICILLIN ? R ? >=32 ?? AMP/SULBACTAM ?I ? 16 ?? CEFAZOLIN ?NR ?<=4 1 ?? CEFEPIME ? S ? <=1 ?? CEFTRIAXONE ?S ? <=1 ?? CIPROFLOXACIN ?S ? <=0.25 ?? ERTAPENEM ?S ? <=0.5 ?? GENTAMICIN ? R ? >=16 ?? IMIPENEM ? S ? <=0.25 ?? LEVOFLOXACIN ? S ? <=0.12 ?? NITROFURANTOIN ? S ? <=16 ?? PIP/TAZOBACTAM ? S ? <=4 ?? TOBRAMYCIN ? S ? 2 ?? TRIMETHOPRIM/SULFA ? R ? >=320 S=Susceptible ??I=Intermediate ??R=Resistant ??* = Not Tested NR = Not Reported ??NN = See Therapy Comments THERAPY COMMENTS ?Note 1: ?ORAL therapy: A cefazolin EFRAIN of < 32 predicts ?susceptibility to the oral agents cefaclor, ?cefdinir, cefpodoxime, cefprozil, cefuroxime, ?cephalexin, and loracarbef when used for therapy ?of uncomplicated UTIs due to E. coli, ?K. pneumoniae, and P. mirabilis. ?PARENTERAL therapy: A cefazolin EFRAIN of > 8 ?indicates resistance to parenteral cefazolin. ?An alternate test method must be performed to ?to confirm susceptibility to parenteral cefazolin. REPORT COMMENT: SPECIMEN TYPE->URINE Test Performed at: [employer] [address] ??[phone] ISABELLA RODRIGUEZ DO,MPH 03/18/2017 1:48 PM CDT 03/18/2017 1:48 PM CDT Yanni Song MD LAB - URIN ALYSIS ORDERABLES [place] ([facility]) * DNA ANTIBODY DS CRITHIDIA IFA (12/14/2016 3:12 PM CDT) Pathologist [facility] dsDNA Antibody Crithidia IFA NEGATIVE NEGATIVE [facility] ([facility]) Comment: Test Performed at: [employer]/[facility] [address] [place] ??[phone] MONAE NGUYEN MD PHD 12/14/2016 3:12 PM CDT 12/14/2016 3:14 PM CDT Yanni Song MD LAB - SERO LOGY ORDERABLES [facility] ([facility]) * JIMENES (SM) ANTIBODY JAIME (12/14/2016 3:12 PM CDT) JAIME Jimenes (SM) Antibody <1.0 NEG <1.0 NEG AI [facility] ([facility]) Comment: Test Performed at: [employer] [facility] [address] [place], [place] ??[address] ISABELLA RODRIGUEZ DO,MPH Blood specimen (specimen) BLOOD SPECIMEN / Unknown 12/14/2016 3:12 PM CDT 12/14/2016 3:14 PM CDT Yanni Song MD LAB - CHEM ISTRY ORDERABLES Performing Organization Address [facility] Phone Number [facility] ([facility]) * NETWORK INFRASTRUCTURE ARCHITECT ANTIBODY (12/14/2016 3:12 PM CDT) JAIME NETWORK INFRASTRUCTURE ARCHITECT Antibody <1.0 NEG <1.0 NEG AI [facility] ([facility]) Comment: Test Performed at: [employer] [address] [address] [place], [place] ??[address] ISABELLA RODRIGUEZ DO,MPH Blood specimen (specimen) BLOOD SPECIMEN / Unknown 12/14/2016 3:12 PM CDT 12/14/2016 3:14 PM CDT Yanni Song MD LAB - CHEM ISTRY ORDERABLES Performing Organization Address City/[facility]/ZIP Co de Phone Number [facility] ([facility]) * NEMO BLOOD SCREEN W/REFLEX TITER (12/14/2016 3:12 PM CDT) [facility] NEMO Screen NEGATIVE NEGATIVE [facility] ([facility]) Comment: NEMO IFA is a first line screen for detecting the presence of up to approximately 150 autoantibodies in various autoimmune diseases. A negative NEMO IFA result suggests NEMO-associated autoimmune diseases are not present at this time. Visit Physician FAQs for interpretation of all antibodies in the [place], prevalence, and association with diseases at http://education.[employer]/ faq/YAP949 ?? Test Performed at: [employer] [facility] ??[phone] ISABELLA RODRIGUEZ DO,MPH Blood specimen (specimen) BLOOD SPECIMEN / Unknown 12/14/2016 3:12 PM CDT 12/14/2016 3:14 PM CDT Yanni Song MD LAB - CHEM ISTRY ORDERABLES Performing Organization Address [facility] de Phone Number [facility] ([facility]) * SS-A/SS-B (SJOGRENS) ANTIBODY PANEL (12/14/2016 3:12 PM CDT) [facility] Sjogren's Antibodies (SSA) <1.0 NEG <1.0 NEG AI [facility] ([facility]) Sjogren's Antibodies (SSB) <1.0 NEG <1.0 NEG AI [facility] ([facility]) Comment: Test Performed at: [employer] [address] ??[phone] ISABELLA RODRIGUEZ DO,MPH 12/14/2016 3:12 PM CDT 12/14/2016 3:14 PM CDT Yanni Song MD LAB - CHEM ISTRY ORDERABLES Performing Organization Address [facility] Co de Phone Number [facility] ([facility]) * DNA ANTIBODY DOUBLE STRANDED (12/14/2016 3:12 PM CDT) [facility] dsDNA Antibody 2 IU/mL [facility] ([facility]) Comment: ? IU/mL ? Interpretation ? < or = 4 ?Negative ? 5-9 ? Indeterminate ? > or = 10 ?? Positive Test Performed at: [employer] [facility] [id number] [place], [place] ??[id number] ISABELLA RODRIGUEZ DO,MPH Blood specimen (specimen) BLOOD SPECIMEN / Unknown 12/14/2016 3:12 PM CDT 12/14/2016 3:14 PM CDT Yanni Song MD LAB - [facility] TOLOGY ORDERABLES Performing Organization Address [facility]/ZIP Co de Phone Number [facility] ([facility]) * TSH (12/14/2016 3:12 PM CDT) [facility] TSH 2.34 0.40 - 4.50 mIU/L [facility] ([facility]) Comment: Test Performed at: [employer] [facility] ??[phone] ISABELLA RODRIGUEZ DO,MPH Blood specimen (specimen) BLOOD SPECIMEN / Unknown 12/14/2016 3:12 PM CDT 12/14/2016 3:14 PM CDT Yanni Song MD LAB - CHEM ISTRY ORDERABLES Performing Organization Address [facility]/State/ZIP Co de Phone Number [facility] ([facility]) * QUANTIFERON TB-GOLD INC (11/07/2016 1:53 PM CDT) [facility] QuantiFERON TB Gold NEGATIVE NEGATIVE [facility] ([facility]) Comment: Negative test result. M. tuberculosis complex infection unlikely. QuantiFERON Nil Value 0.00 IU/mL [facility] ([facility]) QuantiFERON Mitogen Value >10.00 IU/mL [facility] ([facility]) QuantiFERON TB Antigen minus Nil value <0.00 IU/mL [facility] ([facility]) Comment: The Nil tube value is used to determine if the patient has a preexisting immune response which could cause a false-positive reading on the test. In order for a test to be valid, the Nil tube must have a value of less than or equal to 8.0 IU/mL. The mitogen control tube is used to assure the patient has a healthy immune status and also serves as a control for correct blood handling and incubation. It is used to detect false-negative readings. The mitogen tube must have a gamma interferon value of greater than or equal to 0.5 IU/mL higher than the value of the Nil tube. The TB antigen tube is coated with the M. tuberculosis specific antigens. For a test to be considered positive, the TB antigen tube value minus the Nil tube value must be greater than or equal to 0.35 IU/mL. For additional information, please refer to http://education.[employer]/faq/QFT (This link is being provided for informational/ educational purposes only.) REPORT COMMENT: COLLECTION REQUIREMENTS NOT MET. PATIENT ADVISED TO RETURN. Test Performed at: [employer] [place], [place] ??[phone] ISABELLA RODRIGUEZ DO,MPH 11/07/2016 1:53 PM CDT 11/07/2016 1:59 PM CDT Maren Hudson MD LAB - SEROLOGY ORD ERABLES [facility] ([facility]) * HEPATITIS SCREEN ACUTE (11/07/2016 1:53 PM CDT) Hepatitis A Virus Antibody IgM NON-REACTI VE NON-REACT CASTRO [facility] ([facility]) Hepatitis B Virus Surface Antigen NON-REACTI VE NON-REACT CASTRO [facility] ([facility]) Hepatitis B Core Virus Antibody IgM NON-REACTI VE NON-REACT CASTRO [facility] ([facility]) Hepatitis C Antibody NON-REACTI VE NON-REACT CASTRO [facility] ([facility]) Signal/Cutoff 0.02 <1.00 [facility] ([facility]) Comment: Test Performed at: [facility] [place] ??[phone] ISABELLA RODRIGUEZ DO,MPH Blood specimen (specimen) BLOOD SPECIMEN / Unknown 11/07/2016 1:53 PM CDT 11/07/2016 1:59 PM CDT Maren Hudson MD LAB - CHEMISTRY OR DERABLES Performing Organization Address City/[facility]/ZIP Co de Phone Number [facility] ([facility]) * (ABNORMAL) CULTURE URINE (04/29/2014 3:01 PM CDT) Culture Urine ESCHERICHIA COLI(A) [facility] Comment:Greater than 1,000,0 00 CFU/ML Escherichia Coli Urine specimen (specimen) URINE SPECIMEN OBTAINED BY CLEAN CATCH PROCEDURE / Unknown 04/29/2014 3:01 PM CDT 04/29/2014 10:01 PM CDT Narrative [facility] - 05/01/2014 12:38 PM CDT HollisSpecimen#[id number] [facility] Loc/Rm/Bed: EXPCARE C// CLN CATCH U Organism Antibiotic Method Susceptibility Escherichia coli Amikacin SUSCEPTIBILITY <=2: Sensitive Escherichia coli Ampicillin SUSCEPTIBILITY 8: Sensitive Escherichia coli Ampicillin-sulbactam SUSCEPTIBILITY 4: Sensitive Escherichia coli Cefazolin SUSCEPTIBILITY <=4: Sensitive Escherichia coli Cefepime SUSCEPTIBILITY <=1: Sensitive Escherichia coli Ceftazidime SUSCEPTIBILITY <=1: Sensitive Escherichia coli Ceftriaxone SUSCEPTIBILITY <=1: Sensitive Escherichia coli Gentamicin SUSCEPTIBILITY <=1: Sensitive Escherichia coli Imipenem SUSCEPTIBILITY <=0.25: Sensitive Escherichia coli Levofloxacin SUSCEPTIBILITY <=0.12: Sensitive Escherichia coli Nitrofurantoin SUSCEPTIBILITY 32: Sensitive Escherichia coli Piperacillin-tazobactam SUSCEPTIBILIT Y <=4: Sensitive Escherichia coli Tobramycin SUSCEPTIBILITY <=1: Sensitive Escherichia coli Trimethoprim-sulfamethoxazole SUSCEPT IBILITY <=20: Sensitive Escherichia coli Extended-Spectrum Beta-Lactamase SUSC EPTIBILITY Neg: - Historical Provider LAB - MICROBIOLOG Y ORDERABLES [address] [phone] Care Teams Police Detention Attendant Relationship Specialty Start Date End Date John Gomez DO [address] [place] [address] [facility] - General 04/11/21
--- OUTSIDE RECORDS SUMMARY | 2024-07-12 05:41 | XMS_ITS | Clinical Summary ---
Author Organization [facility] Address [address] [place] [address] Care Team Providers Care Jewel Stringer Name Role Phone John Gomez DO Primary Care Provider [phone] Source Comments [facility],non-owned Affiliates and Associated Physician Practices is amultiple site organization consisting of ambulatory clinics and hospital sitesin [place], [place], [place] and [place]. This disclosure is being madepursuant to the Care Everywhere program and may not contain all information available regarding this patient. Last updated 18.[facility] Allergies Active Allergy Reactions Criticality Noted Date [...] (one) tablet TID 09/13/2016 Active FREEST[place]ANCETS [facility] [place]/20/[place] Active blood glucose (FREESTYLE LITE STRIPS) [...] pen needle (NOVOFINE) 32G X 6 MM [facility] 08/13/2016 Active levothyroxine (SYNTHROID) 112 MCG tablet [...] Primary osteoarthritis involving multiple joints 03/07/2017 Other residential (current) drug therapy 7 Other psoriasis 10/14/2016 Other seborrheic dermatitis 10/14/2016 Family History Medical History Relation Name Comments None Known Daughter Status: Alive Aneurysm, Brain Father Status: Dece ased CAD (Coronary Artery Disease) Father Aneurysm, Brain Mother COPD - Chronic Obstructive Pulmonary Disease Mother Status: Cancer - Skin, Non Melanoma Sister Bipolar Disorder Son Status: Ali ve Allergy (Severe) Neg Hx CVA Neg Hx Cancer Neg Hx Cancer - Breast Neg Hx Cancer - Skin, Melanoma Neg Hx Eczema Neg Hx Hemophilia Neg Hx Psoriasis Neg Hx Rashes/Skin Problems Neg Hx Relation Name Status Comments Daughter Father Mother Sister Son Social History Tobacco Use Types Packs/Day Years [...] 10/25/2021 11:09 AM CDT Plan of Treatment Health Maintenance Due Date Last Done Comments BONE DENSITY TESTING 1955 COLOGUARD (AGES 45-75) - COLON CA SCREENING 1956 COLON MONITORING 1956 COLONOSCOPY - COLON CA SCREENING 1956 CT COLONOGRAPHY - COLON CA SCREENING 1956 Colorectal Cancer Screening 1956 FIT - COLON CA SCREENING 1956 FLEX SIG - COLON CA SCREENING 1956 MAMMOGRAM 1956 MEDICARE AWV ? 12 MONTHS 1956 PNEUMOCOCCAL VACCINE 50+ (1 of 2 - PCV) 1962 DTAP/TDAP/TD VACCINES (1 - Tdap) 11/14/1975 ZOSTER VACCINE (1 of 2) 2006 Respiratory Syncytial Virus (RSV) Vaccine Pt: or over 60 yrs (1 - Risk 60-74 years 1-dose series) 2016 DIABETES RETINOPATHY SCREENING 03/02/2020 DIABETES-FOOT EXAM WITH MONOFILAMENT 03/02/2020 DIABETES-HGB A1C 03/02/2020 DIABETES-SERUM CREATININE 06/19/20232021, 05/31/2021, 03/04/2020, Additional history exists DEPRESSION SCREENING 07/01/2023 DIABETES - URINE PROTEIN SCREENING 07/01/2023 COVID-19 VACCINE ( - season) 2024 INFLUENZA VACCINE (#1) 2024 HEPATITIS C SCREENING Completed 03/04/2020, 017 HEPATITIS B VACCINE Aged Out No longe r eligible based on patient's age to complete this topic HIB VACCINE Aged Out No longer eligi ble based on patient's age to complete this topic HPV VACCINE Aged Out No longer eligi ble based on patient's age to complete this topic MENINGOCOCCAL VACCINE Aged Out No gwyn ara eligible based on patient's age to complete this topic Procedures Procedure Name Priority Date/Time Associated Diagnosis Comments COMPREHENSIVE METABOLIC PANEL Routine 06/19/2022 3:03 PM [employer]PER[employer] 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 HEPATITIS C AB W/RFLX TO HCV RNA QN PCR 03/04/2020 9:54 AM CDT from Last 3 Months or Most Recently Relevant to Health Maintenance Results * (ABNORMAL) COMPREHENSIVE METABOLIC PANEL (06/19/2022 3:03 PM SUPERVISOR [employer]) Glucose 102(H) 65 - 99 mg/dL [facility] [...] 29 U/L [facility] Comment: Test Performed at: [employer] [facility] [address] [place], [place] ??[phone] ISABELLA RODRIGUEZ DO,MPH Blood BLOOD SPECIMEN / Unknown 06/19/2022 3:03 PM [employer] 06/19/2022 3:03 PM SUPERVISOR [employer] Pastora SALDIVAR LAB - CHEMISTRY ABHISHEK TREVIÑO Performing Organization Address [facility] Co de Phone Number [facility] [address] [place] [address] * HEPATITIS C AB W/RFLX TO HCV RNA QN PCR (03/04/2020 9:54 AM CDT) Hepatitis C Antibody NON-REACTI VE NON-REACT CASTRO [facility] Signal to Cut-Off 0.03 <1.00 [facility] Comment: HCV antibody was non-reactive. There is no laboratory evidence of HCV infection. In most cases, no further action is required. However, if recent HCV exposure is suspected, a test for HCV RNA (test code 51737) is suggested. For additional information please refer to http://education.[employer]/faq/YDJ18t7 (This link is being provided for informational/ educational purposes only.) Test Performed at: [facility] [address] [place], [place] ??[phone] ISABELLA RODRIGUEZ DO,MPH 03/04/2020 9:54 AM CDT 03/04/2020 9:59 AM CDT Stephy Fitzpatrick MD LAB - CHEMISTRY ABHISHEK TREVIÑO Performing Organization Address [facility] Co de Phone Number [facility] [address] [place] [address] from Last 3 Months or Most Recently Relevant to Health Maintenance Care Teams Jewel Stringer Relationship Specialty Start Date End Date John Gomez DO [address] [place] [address] PCP - General 04/11/21
--- OUTSIDE RECORDS SUMMARY | 2024-07-12 05:41 | XMS_ITS | Encounter Summary ---
Author Organization [facility] Address [address] [facility] [place] [address] Care Team Providers Care Housing Officer Name Role Phone John Gomez DO Primary Care Provider [phone] Encounter Details Date Type Department Care Team (Late st Contact Info) Description 07/18/2021 Telephone [facility] [address] [facility] [place] [address] Pastora Roy PA [address] [facility] [address] [place] [address] Social History Tobacco Use Types Packs/Day Years [...] encounter Miscellaneous Notes * Telephone Encounter - Pastora Roy PA - 08/04/2021 6:40 PM CST Patient called again to say she did not receive her refill of medications from patient assistance and was told they did not receive the forms PA was completed on this Jun 12, 2021 in media tab Note to Biologics coordinator to help patient with this Order was sent to [facility] the same month . She is up to date on labs ATOLOGY PHYSICIAN * Telephone Encounter - Pastora Roy PA - 07/18/2021 2:46 PM CST Patient called for refill cosentyx Sent to [facility] /anya She has follow up in August She is up to date on labs ATOLOGY PHYSICIAN documented in this encounter Plan of Treatment Not on file documented as of this encounter Visit Diagnoses Diagnosis Other psoriasis documented in this encounter Care Teams Housing Officer Relationship Specialty Start Date End Date John Gomez DO [address] [place] [address] PCP - General 04/11/21 documented as of this encounter
--- OUTSIDE RECORDS SUMMARY | 2024-07-12 05:41 | XMS_ITS | Encounter Summary ---
Author Organization [facility] Address [address] [facility] [place] [address] Care Team Providers Care Concrete Layer Name Role Phone John Gomez DO Primary Care Provider [phone] Reason for Visit * Reason Onset Date Comments MEDICATION REFILL 07/20/2022 Encounter Details Date Type Department Care Team (Late st Contact Info) Description 07/20/2022 Refill [facility] [address] [place] [address], [place] [phone] Pastora Roy PA [address] [place] [address] [address] [place] [address] MEDICATION REFILL Social History Tobacco Use Types Packs/Day Years [...] psoriasis documented in this encounter Care Teams Concrete Layer Relationship Specialty Start Date End Date John Gomez DO [address] [place] [address] PCP - General 04/11/21 documented as of this encounter
--- OUTSIDE RECORDS SUMMARY | 2024-07-12 05:42 | XMS_ITS | Encounter Summary ---
Author Organization [facility] Address [address] [facility] [place] [address] Care Team Providers Care Floral Specialist Name Role Phone John Gomez DO Primary Care Provider [phone] Reason for Visit * Reason Onset Date Comments MEDICATION REFILL 05/22/2021 COSENTYX MEDICATION REFILL 06/01/2021 Medication Prior Auth Request 05/22/2021 CO SENTYX MEDICATION REFILL 06/16/2021 Encounter Details Date Type Department Care Team (Late st Contact Info) Description 05/22/2021 Telephone [facility] [address] [place] [address], [facility] [place] [address] Flo Roy PA [address] [place] [address] [place] [phone] MEDICATION REFILL (COSENTYX); MEDICATION REFILL; Medication Prior Auth Request (COSENTYX); MEDICATION REFILL Social History Tobacco Use Types [...] encounter Miscellaneous Notes * Telephone Encounter - Flo Roy PA - 06/17/2021 1:48 PM CST The critera in the letter states she must first try and fail TWO of the following humira enbrel cimzia She has failed both humira and enbrel as documented in her last visit note Patient notified of denial by deuce . She does have another 2 months of treatment We did want her to consider changing biologics due to unsatisfactory response and she plans to discuss with her knitting teacher in Aug. We will decide if appeal is needed for Cosentyx or if best to change to another biologic at her follow up Pending appeal letter has been drafted if needed OS CONSULTANT * Telephone Encounter - Allyn Olmstead - 06/16/2021 11:25 AM CST PA denied for Cosentyx. Pt would have to try and fail two of the following: Humira, Enbrel and Cimzia. Appeal needed for [employer] PAP re-enrollment. Pt informed PA and appeal denial is required for [employer] PAP re-enrollment . Allyn Olmstead OS CONSULTANT * Telephone Encounter - Allyn Olmstead - 06/14/2021 2:58 PM CST PA form for Cosentyx, office notes and quant gold results faxed to [facility] [place], confirmation of fax received Allyn Olmstead OS CONSULTANT * Addendum Note - Flo Roy PA - 06/01/2021 9:36 AM CSTAddended by: FLO ROY on: 06/01/2021 09:36 AM Modules accepted: Orders OS CONSULTANT * Telephone Encounter - Allyn Olmstead - 05/22/2021 1:53 PM CST Received refill request for Cosentyx. ALESSIA 03/16/2020 last neg quant gold 03/04/2020 NOV 06/12/21. Will authorize 30 day supply. Pt was informed to have CBC, CMP, and quant gold drawn prior to appt. 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 COMPREHENSIVE METABOLIC PANEL Routine 05/31/2021 12:27 PM COGNOS CONSULTANT Other buttermilk drier 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 (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) drug therapy documented in this encounter Results * (ABNORMAL) CBC WITH DIFFERENTIAL (05/31/2021 12:27 PM COGNOS CONSULTANT) White Blood Cell Count 6.9 3.8 - 10.8 Thousand/u L [facility] RBC 5.06 3.80 - 5.10 Million/uL [facility] Hemoglobin 14.0 11.7 - 15.5 g/dL [facility] Hematocrit 42.8 35.0 - 45.0 % [facility] MCV 84.6 80.0 - 100.0 fL [facility] MCH 27.7 27.0 - 33.0 pg [facility] MCHC 32.7 32.0 - 36.0 g/dL [facility] RDW 15.1(H) 11.0 - 15.0 % [facility] Platelet Count 222 140 - 400 Thousand/u L [facility] MPV 10.7 7.5 - 12.5 fL [facility] Neutrophil Absolute 4168 1500 - 7800 cells/uL [facility] Lymphocytes Absolute 1904 850 - 3900 cells/uL [facility] Absolute Monocytes 504 200 - 950 cells/uL [facility] Eosinophils Absolute 283 15 - 500 cells/uL [facility] Basophils Absolute 41 0 - 200 cells/uL [facility] Granulocytes % 60.4 % [facility] Lymphocytes % 27.6 % [facility] Monocytes % 7.3 % [facility] Eosinophils % 4.1 % [facility] Basophils % 0.6 % [facility] Comment: Test Performed at: [employer] [place] [address] [facility] [place] ??[phone] ISABELLA RODRIGUEZ DO,MPH Blood BLOOD SPECIMEN / Unknown 05/31/2021 12:27 PM COGNOS CONSULTANT 05/31/2021 12:29 PM COGNOS CONSULTANT Flo SALDIVAR LAB - HEMATOLOGY ORD ERABLES Performing Organization Address [facility] Co de Phone Number [facility] [address] [place] [phone] * (ABNORMAL) COMPREHENSIVE METABOLIC PANEL (05/31/2021 12:27 PM COGNOS CONSULTANT) Glucose 103 65 - 139 mg/dL [facility] Comment: ? Non-fasting reference interval BUN 17 7 - 25 mg/dL [facility] Creatinine 1.01(H) 0.50 - 0.99 mg/dL [facility] Comment: For patients >49 years of age, the reference limit for Creatinine is approximately 13% higher for people identified as -St Helenian. eGFR by MDRD 59(L) > OR = 60 mL/min/1. 73m2 [facility] eGFR by MDRD 68 > OR = 60 mL/min/1. 73m2 [facility] BUN/Creatinine Ratio 17 6 - 22 (calc) [facility] Sodium 138 135 - 146 mmol/L [facility] Potassium 4.4 3.5 - 5.3 mmol/L [facility] Chloride 98 98 - 110 mmol/L [facility] CO2 33(H) 20 - 32 mmol/L [facility] Calcium 9.9 8.6 - 10.4 mg/dL [facility] Protein Total 7.1 6.1 - 8.1 g/dL [facility] Albumin 3.7 3.6 - 5.1 g/dL [facility] Globulin Total 3.4 1.9 - 3.7 g/dL (calc) [facility] Albumin/Globulin Ratio 1.1 1.0 - 2.5 (calc) [facility] Bilirubin Total 0.5 0.2 - 1.2 mg/dL [facility] Alkaline Phosphatase 80 37 - 153 U/L [facility] AST 23 10 - 35 U/L [facility] ALT 14 6 - 29 U/L [facility] Comment: Test Performed at: [facility] [employer] [address] [place] [address] ??[phone] ISABELLA RODRIGUEZ DO,MPH Blood BLOOD SPECIMEN / Unknown 05/31/2021 12:27 PM COGNOS CONSULTANT 05/31/2021 12:29 PM COGNOS CONSULTANT Flo SALDIVAR LAB - CHEMISTRY ORDE RABNATHEN Performing Organization Address [facility] Co de Phone Number [facility] [address] [place] [address] documented in this encounter Visit Diagnoses Diagnosis Other nursing home (current) drug therapy- Primary documented in this encounter Care Teams Floral Specialist Relationship Specialty Start Date End Date John Gomez DO [address] [facility] [address] [place] [address] PCP - General 04/11/21 documented as of this encounter
--- OUTSIDE RECORDS SUMMARY | 2024-07-12 05:42 | XMS_ITS | Encounter Summary ---
Author Organization [facility] Address [address] [place] [address] Care Team Providers Care Food Service Steward Name Role Phone Lane Ring MD Primary Care Provider [phone] Reason for Referral * Evaluate (Routine) - Closed Specialty Diagnoses / Procedures Referred By Galilea t Referred To Contact Dermatology Diagnoses Other psoriasis Stephy Fitzpatrick MD [address] [place] [address] [address] [address] [facility] [address] [place] [address] Referral ID Status Reason Start Date Expiration Date V isits Requested Visits Authorized [id number] Closed Specialty Services Required 03/02/2020 03/02/2021 1 1 Reason for Visit * Reason Comments Arthritis Encounter Details Date Type Department Care Team (Late st Contact Info) Description 03/02/2020 1:40 PM CDT Office Visit [facility] [address] [place] [address], [place] [address] Stephy Fitzpatrick MD [address] [place] [address] [address] [place] [address] Arthropathic psoriasis (HCC) (Primary Dx); Psoriatic arthritis (HCC); Other psoriasis Social History Tobacco Use Types [...] Sign Reading Time Taken Comments Blood Pressure 144/82 03/02/2020 1:51 PM CDT Pulse - - Temperature 36.2 ??C (97.1 ??F) 03/02/2020 1:51 PM CD T Respiratory Rate - - Oxygen Saturation - - Inhaled Oxygen Concentration - - Weight 128.5 kg (283 lb 3.2 oz) 03/02/2020 1:51 PM CDT Height 171.5 cm (5' 7.5 ) 03/02/2020 1:51 PM CDT Body Mass Index 43.7 03/02/2020 1:51 PM CDT documented in this encounter Patient Instructions * Patient Instructions* Stephy Fitzpatrick MD - 03/02/2020 2:32 PM CDT 1. Get labs and x rays today 2. based on results will decide what medications we should start you on 3. f/u in 8 weeks documented in this encounter Progress Notes * Stephy Fitzpatrick MD - 03/02/2020 1:43 PM CDT [facility] Rheumatology Consult Reason for consult: psoriatic arthritis HPI: 64 y/o who was previously seen in our clinic 3 years ago,seen by Dr. Craven. She has h/o skin psoriasis since she was in her 30s and initially being managed with topicals.latershe was started on MTX PO that did not help much with skin but helped her joints pain.she tried Humira in the past but it did not work. was seen by Dr. Craven 03/2017 and MTX 15 mg PO was continuedand Enbrel was started. later pt got admitted to hospital for Afib and possible CHF and pt never started ENbrel and also off of MTX since 2017. Later she developed hypercalcemia and had weight loss and found to have pleural based nodule on chest imaging with concern for malignancy and was seen by oncologist and as per pt she had one time tissue biopsy of lesion but sample was not enough so it was inconclusive. later on she had repeat imaging and lesion was not present there anymore so she was d/c from oncology office as she was told no further evidence for malignancy. also she reported that she does not have CHF and only has Afib and takes coumadin for it. Since stopping MTX her joints pain got worse and she today reported pain in her toes,ankles,hips,lower back, right knee, hands, shoulders. pain is there all day with no specific time of occurrence. cannot take oral NSAIDs due to being on coumadin. only takes Tylenol which does not help much. She has extensive skin psoriasis and currently not following with Derm. currently not using any topicals as she said she has used several of them over period of years and none seem to work significantly. ROS: General: -fatigue, -fever, -wt loss/gain, daily functioning not limited HEENT: -dry eyes, -dry mouth, -vision changes, -eye redness, -eye pain, - oral/nasal ulcers CV: -chest pain, -palpitations, - LE edema Resp: -cough, -SOB, -pleuritic pain GI: - dysphagia, - reflux, -abd pain, -constipation, -nausea, -vomiting, - diarrhea, -blood/mucus : -urine changes, -dysuria, -hematuria, MSK: -arthralgia, -myalgia, -muscle weakness, -swelling, -erythema, -warmth, -AM stiffness, -back pain, Skin: psoriatic rash, -lesions, -ulcers, -hair loss, -Raynaud, -acrocyanosis, -photosensitivity Neuro: -ZALDIVAR, -paresthesias Psych: Mood is generally good, -depression/anxiety ROS otherwise negative Past Medical History: DM type 2 HTN A fibrillation Obesity Psoriasis Psoriatic arthritis Past surgical Hx: Cholecystectomy Hysterectomy Hernia repair Social History: Social History Tobacco Use ??? Smoking status: Never Smoker ??? Smokeless tobacco: Never Used Substance Use Topics ??? Alcohol use: No ??? Drug use: Never Family History: Family History Problem Relation Name Age of [...] Cancer - Skin, Melanoma Neg Hx Current Medications: Current Outpatient Medications Medication Sig Dispense Refill ??? BASAGLAR KWIKPEN (BASAGLAR) pen 80 Units. (Patient taking differently: 62 Units 2 times daily after meals ) ??? blood glucose (FREESTYLE LITE STRIPS) test strip (Patient taking differently: 1 strip 3 times daily ) ??? busPIRone (BUSPAR) 15 MG tablet 15 mg TID. ??? Calcium 500-125 MG-UNIT Take 1 tablet by mouth DAILY. (Patient not taking: Reported on 03/02/2020) ??? escitalopram (LEXAPRO) 10 MG tablet 10 mg. ??? escitalopram (LEXAPRO) 20 MG tablet Take 20 mg by mouth DAILY. ??? etanercept (ENBREL SURECLICK) 50 MG/ML auto-injector pen Inject 50 mg subcutaneously q7days. (Patient not taking: Reported on 03/02/2020) 4 Box 2 ??? folic acid (FOLVITE) 1 MG tablet (Patient not taking: Reported on 03/02/2020) 90 tablet 3 ??? FREESTYLE LANCETS MISC ??? hydrocortisone (HYTONE) 2.5 % ointment (Patient not taking: Reported on 03/02/2020) 30 g 2 ??? ibuprofen (MOTRIN) 800 MG tablet (Patient not taking: Reported on 03/02/2020) ??? insulin lispro (HUMALOG) 100 UNIT/ML cartridge Inject 10 Units subcutaneously TID. (Patient nottaking: Reported on 03/02/2020) ??? insulin pen needle (NOVOFINE) 32G X 6 MM MISC ??? levothyroxine (SYNTHROID) 112 MCG tablet (Patient taking differently: Take 150 mcg by mouth daily before breakfast ) ??? lisinopril (PRINIVIL;ZESTRIL) 5 MG tablet lisinopril 5 mg tablet TAKE 1 TABLET BY MOUTH ONCE DAILY ??? Magnesium Aspartate 65 MG Take 64 mg by mouth BID. (Patient taking differently: Take 800 mg by mouth once daily ) ??? metFORMIN (GLUCOPHAGE) 1000 MG tablet 1,000 mg BID. (Patient taking differently: 500 mg BID ) ??? methotrexate 2.5 MG tablet (Patient not taking: Reported on 03/02/2020) 24 tablet 1 ??? metoprolol succinate XL 24hr (TOPROL XL) 50 MG tablet 50 mg DAILY. (Patient taking differently:Take 12.5 mg by mouth DAILY ) ??? ondansetron (ZOFRAN) 8 MG tablet Take 8 mg by mouth q8h PRN (Nausea). (Patient not taking: Reported on 03/02/2020) 15 tablet 0 ??? QUEtiapine (SEROQUEL) 100 MG tablet 150 mg DAILY. ??? rosuvastatin (CRESTOR) 20 MG tablet Take 20 mg by mouth once daily ??? traMADol (ULTRAM) 50 MG tablet Take 50 mg by mouth every 6 hours as needed pain ??? triamcinolone acetonide (KENALOG) 0.1 % ointment (Patient not taking: Reported on 03/02/2020) 454g 1 ??? Vitamins/Minerals TABS 1 tablet DAILY. (Patient not taking: Reported on 03/02/2020) ??? warfarin (COUMADIN) 2 MG tablet warfarin 2 mg tablet TAKE ONE TABLET BY MOUTH ONCE DAILY AT BEDTIME No current facility-administered medications for this visit. Allergies: Citalopram; Levofloxacin; Lidocaine; Sulfa drugs; Cefuroxime axetil; Ciprofloxacin; Codeine; Erythromycin; Sulfamethoxazole w-trimethoprim; and Theophyllines Physical Exam: BP 144/82 Temp 97.1 ??F (36.2 ??C) (Oral) Ht 5' 7.5 (1.715 m) Wt 283 lb 3.2 oz (128.5 kg) BMI 43.7kg/m2 General: normal, appears stated age Skin: Extensive skin psoriasis involving b/l upper extremities,lower extremities,back HEENT: Normocephalic, without obvious abnormality, atraumatic conjunctivae/corneas clear, EOMI, no oral or nasal ulcers, moist mucus membranes, supple neck Lymphatic: No cervical, supraclavicular, axillary, or inguinal adenopathy Back: symmetric, no curvature Chest/Lungs: clear to auscultation bilaterally, normal respiratory effort Heart: RRR, normal S1 and S2, no murmur, no rub Abdomen: soft, non-tender. Bowel sounds normal. No masses, no organomegaly Neurologic: Grossly normal cranial nerves, Sensation in tact throughout to light touch Musculoskeletal Exam: mild tenderness to palpation at several MCPs,PIPs, mild swelling of left 4th,5th PIPs . no overt synovitis. b/l elbows tender to palpation at medially though joint ROM seems preserved. both shouldersrestricted ROM with extension due to pain. knees without restricted ROM and no effusion. no achilles tendinitis on exam. no plantar fascia insertion tenderness. no enthesitis or dactylitis on exam. no joints effusion Labs: Reviewed, including those as noted below Recent Labs Component Name 05/09/17 1359 02/27/17 0917 12/31/16 0902 12/14/16 1512 11/07/16 1353 WBC 8.2 8.1 8.2 8.4 8.4 7.8 HGB 13.7 13.1 13.9 14.0 14.0 13.4 PLT 213 211 206 230 230 178 Recent Labs Component Name 05/09/17 1359 02/27/17 0917 12/31/16 0902 NA 137 137 138 K 4.5 4.3 4.1 CL 100 102 100 CO2 26 29 29 BUN 15 15 13 CREATININE 0.72 0.72 0.68 Recent Labs Component Name 05/09/17 1359 02/27/17 0917 12/31/16 0902 AST 20 21 19 ALT 16 22 20 ALKPHOS 99 97 92 TBILI 0.5 0.4 0.5 Lab results smartLinks are not currently available Diagnostics: No MSK x rays to review Assessment: 64 y/o with multiple co morbidities and longstanding h/o extensive skin psoriasis and possibly PsA off of any DMARDs for now 3 years and not following with Derm with active skin psoriasis. some of her symptoms look more due to OA while others point towards possible PsA though no clear enthesitis,dactylitis or nail changes on exam. she did not have any recent labs. so need to reorder the labs including RA serologies, chronic hep panel,Quantiferon gold, CBC,CMP. also will get MSK x rays and CXR. after reviewing pending labs will see what meds we should start iam as she has prior possible reported transaminits with MTX in that case would directly need to for for biologics like TNFi if she did not axial disease evidence on imaging. Also counseled on need to loose weight as meds would work best if she looses weight. Skin psoriasis: pt interested in seeing back Derm for extensive skin psoriasis Atrial Fib: on coumadin and other rate control meds,follows with cardiology T2DM: on insulin and metformin. follows with PCP, no recent A1C HTN: BP slightly elevated today. 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 Orders Placed This Encounter ??? XR CHEST 2VW INSPIR EXPIRATION Standing Status: Future Standing Expiration Date: 03/02/2021 Order Specific Question: What specific clinical question do you want answered? Answer: baseline CXR ??? XR HAND LEFT 3VW OR MORE Standing Status: Future Standing Expiration Date: 03/02/2021 Order Specific Question: What specific clinical question do you want answered? Answer: hand pain ??? XR HAND RIGHT 3VW OR MORE Standing Status: Future Standing Expiration Date: 03/02/2021 Order Specific Question: What specific clinical question do you want answered? Answer: any signs of psoriatic arthritis ??? XR KNEE LEFT 4VW OR MORE Standing Status: Future Standing Expiration Date: 03/02/2021 Order Specific Question: What specific clinical question do you want answered? Answer: knee pain ??? XR KNEE RIGHT 4VW OR MORE Standing Status: Future Standing Expiration Date: 03/02/2021 Order Specific Question: What specific clinical question do you want answered? Answer: knee pain ??? XR LUMBAR SPINE 4VW OR MORE Standing Status: Future Standing Expiration Date: 03/02/2021 Order Specific Question: What specific clinical question do you want answered? Answer: back pain ??? XR SI JOINTS 3VW OR MORE Standing Status: Future Standing Expiration Date: 03/02/2021 Order Specific Question: What specific clinical question do you want answered? Answer: look for sacroiliitis ??? XR SHOULDER LEFT 2VW OR MORE Standing Status: Future Standing Expiration Date: 03/02/2021 Order Specific Question: What specific clinical question do you want answered? Answer: shoulder pain ??? XR SHOULDER RIGHT 2VW OR MORE Standing Status: Future Standing Expiration Date: 03/02/2021 Order Specific Question: What specific clinical question do you want answered? Answer: shoulder pain ??? XR THORACIC SPINE 3VW Standing Status: Future Standing Expiration Date: 03/02/2021 Order Specific Question: What specific clinical question do you want answered? Answer: back pain ??? XR FOOT LEFT WT BEARING 3VW Standing Status: Future Standing Expiration Date: 03/02/2021 Order Specific Question: What specific clinical question do you want answered? Answer: any erosive disease ??? XR FOOT RIGHT WT BEARING 3VW Standing Status: Future Standing Expiration Date: 03/02/2021 Order Specific Question: What specific clinical question do you want answered? Answer: foot pain ??? HEPATITIS B CORE ANTIBODY Standing Status: Future Standing Expiration Date: 03/23/2020 ??? HEPATITIS B SURFACE ANTIGEN W RFLX CONFIRMATION Standing Status: Future Standing Expiration Date: 03/27/2021 ??? HEPATITIS C AB SCREEN RFLX NAAT QUANT Standing Status: Future Standing Expiration Date: 04/01/2021 ??? QUANTIFERON TB-GOLD Standing Status: Future Standing Expiration Date: 03/23/2020 ??? RHEUMATOID FACTOR BLOOD QUANTITATIVE Standing Status: Future Standing Expiration Date: 03/27/2021 ??? CYCLIC CITRUL PEPTIDE ANTIBODY IGG/IGA (CCP) Standing Status: Future Standing Expiration Date: 03/27/2021 ??? HLA TYPING B27 Standing Status: Future Standing Expiration Date: 03/23/2020 ??? CBC WITH DIFFERENTIAL Standing Status: Future Standing Expiration Date: 03/27/2021 ??? COMPREHENSIVE METABOLIC PANEL Standing Status: Future Standing Expiration Date: 03/27/2021 ??? VITAMIN D 25-HYDROXY Standing Status: Future Standing Expiration Date: 03/27/2021 ??? C-REACTIVE PROTEIN Standing Status: Future Standing Expiration Date: 03/27/2021 ??? ERYTHROCYTE SEDIMENTATION RATE Standing Status: Future Standing Expiration Date: 03/23/2020 ??? AMB Ref Dermatology - [facility] Referral Priority: Routine Referral Type: Evaluate Referral Reason: Specialty Services Required Number of Visits Requested: 1 documented in this encounter Plan of Treatment Scheduled Referrals Name Type Priority Associated Diagnoses Order Schedule AMB Ref Dermatology - [facility] Outpatient Referral Routine Other psoriasis Ordered: 03/02/2020 documented as of this encounter Procedures Procedure Name Priority Date/Time Associated Diagnosis Comments QUANTIFERON-TB GOLD PLUS 1-TUBE 03/04/2020 9:54 AM CDT HEPATITIS C AB W/RFLX TO HCV RNA QN PCR 03/04/2020 9:54 AM CDT HEPATITIS B CORE ANTIBODY REFLEX IGM 03/04/2020 9:54 AM CDT HEPATITIS B SURFACE ANTIBODY QUANT 03/04/2020 9:54 AM CDT RHEUMATOID FACTOR BLOOD QUANTITATIVE 03/04/2020 9:54 AM CDT C-REACTIVE PROTEIN 03/04/2020 9: 54 AM CDT HLA TYPING B27 03/04/2020 9:54 AM CDT VITAMIN D 25-HYDROXY 03/04/2020 9:54 AM CDT CYCLIC CITRULLINATED PEPTIDE(CCP) AB IGG 03/04/2020 9:54 AM CDT ERYTHROCYTE SEDIMENTATION RATE 03/04/2020 9:54 AM CDT CBC W AUTO DIFFERENTIAL 03/04/2020 9:54 AM CDT COMPREHENSIVE METABOLIC PANEL 03/04/2020 9:54 AM CDT documented in this encounter Results * QUANTIFERON-TB GOLD PLUS 1-TUBE (03/04/2020 9:54 AM CDT) QuantiFERON TB Gold Plus NEGATIVE NEGATIVE [facility] Comment: Negative test result. M. tuberculosis complex infection unlikely. NIL 0.02 IU/mL [facility] MITOGEN MINUS NIL RESULT 8.13 IU/mL [facility] TB1-NIL 0.01 IU/mL [facility] TB2-NIL [...] T-lymphocytes. For additional information, please refer to https://education.[employer]/faq/VZS004 (This link is being provided for informational/ educational purposes only.) REPORT COMMENT: FASTING:YES Test Performed at: [facility] [address] ??[address] ISABELLA RODRIGUEZ DO,MPH 03/04/2020 9:54 AM CDT 03/04/2020 9:59 AM CDT Stephy Fitzpatrick MD LAB - CHEMISTRY ABHISHEK TREVIÑO Performing Organization Address City/State/[facility] Co de Phone Number [facility] [address] [place] [address] * VITAMIN D 25-HYDROXY (03/04/2020 9:54 AM CDT) [facility] Vitamin D, 25 Hydroxy 31 30 - 100 ng/mL [facility] Comment: Vitamin D Status ? 25-OH Vitamin D: Deficiency: ?<20 ng/mL Insufficiency: ? 20 - 29 ng/mL Optimal: ? > or = 30 ng/mL For 25-OH Vitamin D testing on patients on D2-supplementation and patients for whom quantitation of D2 and D3 fractions is required, the QuestAssureD() 25-OH VIT D, (D2,D3), LC/MS/MS is recommended: order code 22122 (patients >2yrs). See Note 1 Note 1 For additional information, please refer to http://[employer]/faq/EEH073 (This link is being provided for informational/ educational purposes only.) Test Performed at: [facility] [address] [place], [place] ??[address] ISABELLA RODRIGUEZ DO,MPH 03/04/2020 9:54 AM CDT 03/04/2020 9:59 AM CDT Stephy Fitzpatrick MD LAB - CHEMISTRY ORDE [facility] Performing Organization Address [facility] [place] [address] * HEPATITIS B CORE ANTIBODY REFLEX IGM (03/04/2020 9:54 AM CDT) Hepatitis B Core Virus Antibody Total NON-REACTI VE NON-REACT CASTRO [facility] Comment: Test Performed at: [facility] [address] [place], [place] ??[phone] ISABELLA RODRIGUEZ DO,MPH 03/04/2020 9:54 AM CDT 03/04/2020 9:59 AM CDT Stephy Fitzpatrick MD LAB - SEROLOGY ORDER MARK Performing Organization Address [facility] [place] [place] [address] * (ABNORMAL) HEPATITIS B SURFACE ANTIBODY QUANT (03/04/2020 9:54 AM CDT) Hepatitis B Virus Surface Antibody Quantitative <5(L) > OR = 10 mIU/mL [facility] Comment: Patient does not have immunity to hepatitis B virus. For additional information, please refer to http://[employer]/faq/UQZ985 (This link is being provided for informational/ educational purposes only). Test Performed at: [facility] [address] [place], [place] ??[phone] ISABELLA RODRIGUEZ DO,MPH 03/04/2020 9:54 AM CDT 03/04/2020 9:59 AM CDT Stephy Fitzpatrick MD LAB - SEROLOGY ORDER MARK Performing Organization Address [facility] de Phone Number [facility] [address] [place] [address] * HEPATITIS C AB W/RFLX TO HCV RNA QN PCR (03/04/2020 9:54 AM CDT) Pathologist [facility] Hepatitis C Antibody NON-REACTI VE NON-REACT CASTRO [facility] Signal to Cut-Off 0.03 <1.00 [facility] Comment: HCV antibody was non-reactive. There is no laboratory evidence of HCV infection. In most cases, no further action is required. However, if recent HCV exposure is suspected, a test for HCV RNA (test code 15130) is suggested. For additional information please refer to http://education.[employer]/faq/GSU26c4 (This link is being provided for informational/ educational purposes only.) Test Performed at: [facility] [address] [place], [place] ??[phone] ISABELLA RODRIGUEZ DO,MPH 03/04/2020 9:54 AM CDT 03/04/2020 9:59 AM CDT Stephy Fitzpatrick MD LAB - CHEMISTRY ORDE RABLES Performing Organization Address [facility] de Phone Number [facility] [address] [place] [address] * CYCLIC CITRULLINATED PEPTIDE(CCP) AB IGG (03/04/2020 9:54 AM CDT) Pathologist [facility] Cyclic Citrullinated Peptide Antibody IgG <16 UNITS [facility] Comment: Reference Range Negative: ?<20 Weak Positive: ? 20-39 Moderate Positive: ?? 40-59 Strong Positive: ? >59 Test Performed at: [employer] [address] [place], [place] ??[address] ISABELLA RODRIGUEZ DO,MPH 03/04/2020 9:54 AM CDT 03/04/2020 9:59 AM CDT Stephy Fitzpatrick MD LAB - CHEMISTRY ABHISHEK TREVIÑO Performing Organization Address [facility] de Phone Number [facility] [address] [place] [address] * (ABNORMAL) C-REACTIVE PROTEIN (03/04/2020 9:54 AM CDT) Pathologist [facility] C-Reactive Protein 20.4(H) <8.0 mg/L [facility] Comment: Test Performed at: [facility] [address] [place], [place] ??[address] ISABELLA RODRIGUEZ DO,MPH 03/04/2020 9:54 AM CDT 03/04/2020 9:59 AM CDT Stephy Fitzpatrick MD LAB - CHEMISTRY ABHISHEK TREVIÑO Performing Organization Address [facility] de Phone Number [facility] [phone] [place] [address] * RHEUMATOID FACTOR BLOOD QUANTITATIVE (03/04/2020 9:54 AM CDT) Pathologist [facility] Rheumatoid Factor <14 <14 IU/mL [facility] Comment: Test Performed at: [facility] [address] [address] [place], [place] ??[phone] ISABELLA RODIRGUEZ DO,MPH 03/04/2020 9:54 AM CDT 03/04/2020 9:59 AM CDT Stephy Fitzpatrick MD LAB - CHEMISTRY ABHISHEK TREVIÑO Performing Organization Address [facility] de Phone Number [facility] [address] [place] [address] * CBC WITH DIFFERENTIAL (03/04/2020 9:54 AM CDT) Pathologist [facility] White Blood Cell Count 6.7 3.8 - 10.8 Thousand/u L [facility] RBC 4.88 3.80 - 5.10 Million/uL [facility] Hemoglobin 13.7 11.7 - 15.5 g/dL [facility] Hematocrit 42.3 35.0 - 45.0 % [facility] MCV 86.7 80.0 - 100.0 fL [facility] MCH 28.1 27.0 - 33.0 pg [facility] MCHC 32.4 32.0 - 36.0 g/dL [facility] RDW 14.6 11.0 - 15.0 % [facility] Platelet Count 199 140 - 400 Thousand/u L [facility] MPV 10.4 7.5 - 12.5 fL [facility] Neutrophil Absolute 4027 1500 - 7800 cells/uL [facility] Lymphocytes Absolute 1869 850 - 3900 cells/uL [facility] Absolute Monocytes 462 200 - 950 cells/uL [facility] Eosinophils Absolute 302 15 - 500 cells/uL [facility] Basophils Absolute 40 0 - 200 cells/uL [facility] Granulocytes % 60.1 % [facility] Lymphocytes % 27.9 % [facility] Monocytes % 6.9 % [facility] Eosinophils % 4.5 % [facility] Basophils % 0.6 % [facility] Comment: Test Performed at: [facility] ??[phone] RODOLFO NAM MD 03/04/2020 9:54 AM CDT 03/04/2020 9:59 AM CDT Stephy Fitzpatrick MD LAB - HEMATOLOGY ORD ERABLES Performing Organization Address City/[facility] Co de Phone Number [address] [address] * (ABNORMAL) ERYTHROCYTE SEDIMENTATION RATE (03/04/2020 9:54 AM CDT) Pathologist [facility] Erythrocyte Sedimentation Rate Westergren 34(H) < OR = 30 mm/h [facility] Comment: Test Performed at: [facility] ??[phone] RODOLFO NAM MD 03/04/2020 9:54 AM CDT 03/04/2020 9:59 AM CDT Stephy Fitzpatrick MD LAB - HEMATOLOGY ORD ERABLES Performing Organization Address City/[facility] Co de Phone Number [address] [address] * HLA TYPING B27 (03/04/2020 9:54 AM CDT) HLA-B27 Antigen NEGATIVE NEGATIVE [facility] Comment: Test Performed at: [facility] [address] [place], [place] ??[phone] AGUS WEIR MD,PHD,FÉLIX 03/04/2020 9:54 AM CDT 03/04/2020 9:59 AM CDT Stephy Fitzpatrick MD LAB - CHEMISTRY ABHISHEK TREVIÑO [facility] Organization Address City/State/ZIP Co de Phone Number [facility] [address] [place] [address] * (ABNORMAL) COMPREHENSIVE METABOLIC PANEL (03/04/2020 9:54 AM CDT) Glucose 139(H) 65 - 99 mg/dL [facility] Comment: ? Fasting reference interval For someone without known diabetes, a glucose value >125 mg/dL indicates that they may have diabetes and this should be confirmed with a follow-up test. BUN 19 7 - 25 mg/dL [facility] Creatinine 1.07(H) 0.50 - 0.99 mg/dL [facility] Comment: For patients >49 years of age, the reference limit for Creatinine is approximately 13% higher for people identified as -[place]. eGFR by MDRD 55(L) > OR = 60 mL/min/1. 73m2 [facility] eGFR by MDRD 64 > OR = 60 mL/min/1. 73m2 [facility] BUN/Creatinine Ratio 18 6 - 22 (calc) [facility] Sodium 140 135 - 146 mmol/L [facility] Potassium 4.2 3.5 - 5.3 mmol/L [facility] Chloride 101 98 - 110 mmol/L [facility] CO2 30 20 - 32 mmol/L [facility] Calcium 9.7 8.6 - 10.4 mg/dL [facility] Protein Total 6.5 6.1 - 8.1 g/dL [facility] Albumin 3.3(L) 3.6 - 5.1 g/dL [facility] Globulin Total 3.2 1.9 - 3.7 g/dL (calc) [facility] Albumin/Globulin Ratio 1.0 1.0 - 2.5 (calc) [facility] Bilirubin Total 0.4 0.2 - 1.2 mg/dL [facility] Alkaline Phosphatase 78 37 - 153 U/L [facility] AST 15 10 - 35 U/L [facility] ALT 13 6 - 29 U/L [facility] Comment: Test Performed at: [facility] [address] [place], [place] ??[address] ISABELLA RODRIGUEZ DO,MPH 03/04/2020 9:54 AM CDT 03/04/2020 9:59 AM CDT Stephy Fitzpatrick MD LAB - CHEMISTRY ABHISHEK TREVIÑO [facility] Organization Address City/State/[facility] Co de Phone Number [facility] [address] [place] [address] documented in this encounter Visit Diagnoses Diagnosis Arthropathic psoriasis (HCC)- Primary Psoriatic arthropathy Psoriatic arthritis (HCC) Psoriatic arthropathy Other psoriasis documented in this encounter Care Teams Food Service Steward Relationship Specialty Start Date End Date Lane Ring MD [address] [place] [address] PCP - General 08/03/16 04/10/21 documented as of this encounter
--- OUTSIDE RECORDS SUMMARY | 2024-07-12 05:42 | XMS_ITS | Encounter Summary ---
Author Organization [facility] Address [address] [place] [address] Care Team Providers Care Clinical Education Manager Name Role Phone Lane Ring MD Primary Care Provider [phone] Reason for Visit * Reason Onset Date Comments Pre Authorization 07/07/2020 COSENTYX Encounter Details Date Type Department Care Team (Late st Contact Info) Description 07/07/2020 Telephone [facility] [address] [place] [address], [facility] [place] [address] Pastora Roy PA [facility] 3 [place] [address] Pre Authorization (COSENTYX) Social History Tobacco Use Types Packs/Day Years [...] * Telephone Encounter - Allyn Olmstead - 07/12/2020 9:56 AM CST Prior authorization and appeal was denied and both letters were faxed to [facility] confirmation of fax received Allyn Olmstead * Telephone Encounter - Angy Pandey - 07/07/2020 10:07 AM CST Twan Curry is requesting a prior authorization for Cosentyx. Please advise. documented in this encounter Plan of Treatment Not on file documented as of this encounter Visit Diagnoses Not on filedocumented in this encounter Care Teams Clinical Education Manager Relationship Specialty Start Date End Date Lane Ring MD [address] [place] [address] PCP - General 08/03/16 04/10/21 documented as of this encounter
--- OUTSIDE RECORDS SUMMARY | 2024-07-12 05:42 | XMS_ITS ---
Author Organization [facility] Address [address] [place] [address] Care Team Providers Care Telephone Services Sales Representative Name Role Phone Fannie Campuzano Primary Care Provider Allergies Allergen (clinical drug ingredient) Drug/Non Drug Allergy documented on EMR Reaction Allergy Type Onset Date Status cefuroxime Cefuroxime Axetil Unknown Drug Allergy Active ciprofloxacin Cipro Unknown Drug Allergy Act rubina citalopram Citalopram Hydrobromide Unknown Drug Allergy Active codeine Codeine Sulfate Unknown Drug Allergy A ctive erythromycin Erythromycin Base Unknown Drug Allergy Active levofloxacin levoFLOXacin Unknown Drug Allergy A ctive lidocaine Lidocaine Unknown Drug Allergy Active Sulfamethoxazole Unknown Drug Allergy Active theophylline Theophylline Unknown Drug Allergy A ctive trimethoprim Trimethoprim Unknown Drug Allergy A ctive Substance with sulfonamide structure and antibacterial mechanism of action (substance) Sulfa Antibiotics Unknown Drug Allergy Active REASON FOR VISIT 2 Month Psych F/U & Med Refill Medications Medication SIG (Take, Route, Frequency, Duration) Notes Start Date End Date Status Cosentyx 300 Dose 1 monthly No t-Taking RisperDAL 1 MG 1.5 tablet Orally twice a day for 30 days Active SEROquel 300 MG 1 tablet at bedtime Orally Once a day for 30 day(s) Active SEROquel 50 MG 1 tablet in morning Orally Once a day for 30 days Active metFORMIN HCl 500 MG 1 tablet with a car l Orally twice a day Not-Taking Basaglar KwikPen 100 UNIT/ML as directed Subcutaneous 62 units twice a day Active Admelog 100 UNIT/ML as directed Subcutaneous 9-15 units 3 times a day Active Lexapro 10 MG 1 tablet Orally Once a day for 30 days Active Lexapro 20 MG 1 tablet Orally Once a day for 30 days Active busPIRone HCl 30 MG 1 tablet Orally Twic e a day for 7 days Active Lisinopril 5 MG 1 tablet Orally Once a day for 30 day(s) Active Metoprolol Succinate 25 MG 1/2 capsule Orally Once a day Active Warfarin Sodium 2 MG 1 tablet Orally Onc e a day for 30 days Active dilTIAZem HCl ER Beads 120 MG 1 capsule Orally Once a day for 30 day(s) Active Magnesium Bisglycinate 100 MG 2 tablets (400mg) Orally twice a day Active Eliquis Active Pravastatin Sodium 40 MG 1 tablet Orally Once a day for 30 day(s) Active Levothyroxine Sodium 150 MCG 1 tablet in the morning on an empty stomach Orally Once a day for 30 day(s) Active Social History Sex Assigned At : Social History Observation Description Sex Assigned At Female Encounters Encounter Location Date Provider Diagnosis [address] [address] 05/19/2024 Fannie Campuzano Schizoaffective diso rder F25.9 Assessments Encounter Date Diagnosis (ICD Code) Assessment Notes Treatment Notes Treatment Clinical Notes Section Notes 05/19/2024 Schizoaffective disorder (ICD-10 - F25.9) risk & benefits discussed. Continue current treatment. No involuntary movements reported. Continue current medicications. Plan Of Treatment Medication Medication Name Sig Start Date Stop Date Notes RisperDAL 1 MG 1.5 tablet Orally tw ice a day for 30 days SEROquel 300 MG 1 tablet at bedtime Orally Once a day for 30 day(s) SEROquel 50 MG 1 tablet in morning Orally Once a day for 30 days Lexapro 10 MG 1 tablet Orally Once a day for 30 days Lexapro 20 MG 1 tablet Orally Once a day for 30 days busPIRone HCl 30 MG 1 tablet Orally Twice a day for 7 days Treatment Notes Assessment Notes Schizoaffective disorder risk & benefits discussed. Continue current treatment. No involuntary movements reported. Continue current medicications. Next Appt Details Follow Up: 3 Months, Reason: Progress Notes * Hermila GEEsDOB:1955 (68 yo F)Acc No.[id number]:05/19/2024 Patient:?Carol GEE Provider:?Fannie Campuzano :1955???Age:68 Y???Sex:Female D ate:05/19/2024 Address:[address] [place] [address] [address], [id number] Check In:01:13 PM ASSURANCE OFFICER Subjective: * Chief Complaints: * ???2 Month Psych F/U & Med R efill * HPI: ???Depression Screening:?PHQ-9?Little interest or pleasure in doing things?Not at all,?Feeling down, depressed, or hopeless?Several days,?Trouble falling or staying asleep, or sleeping too much?Not at all,?Feeling tired or having little energy?Several days,?Poor appetite or overeating?Not at all,?Feeling bad about yourself or that you are a failure, or have let yourself or your family down?Not at all,?Trouble concentrating on things, such as reading the newspaper or watching television?Several days,?Moving or speaking so slowly that other people could have noticed; or the opposite, being so fidgety or restless that you have been moving around a lot more than usual?Not at all,?Thoughts that you would be better off or of hurting yourself in some way?Not at all,?Total Score?3,?Interpretation?Minimal Depression.?Screening:?Izard Suicide Severity Rating Scale (LF)?Do you want to initiate with?Screener form,?1. Wish to be : Have you wished you were or wished you could go to sleep and not wake up??No,?2. Suicidal Thoughts: Have you actually had any thoughts of killing yourself??No,?6. Suicide Behaviour: Have you ever done anything,started to do anything, or prepared to end your life??No,?Interpretation:?Low Risk.?Depression Screening PHQ2 2014:?PHQ-2 (2015 Edition)?Little interest or pleasure in doing things??Not at all,?Feeling down, depressed, or hopeless??Not at all,?Total Score?0.? Phone session today? Reports she has been in [facility] since beginning of March 2024.? Reports feeling depressed because being there .? Pt reports she is doing alright. Medications are working. Denies side effects.? Sleep is alright.? Denies hallucination or delusions. Appetite is alright. Denies SI/HI.? ?Denies manic or hypo manic symptoms. Anxiety is under control. (Pt was inpatient at [facility] for 22 days .Pt was first on medical floor because she had covid with no symptoms. Pt was paranoid, delusional. She thought she had no insurance, no money, no food and she stopped takin medicines at home and taking care of self. She started declining after she moved to [employer] service apartment alone. Pt had he mdications adjusted in hospital and also Risperdal was added. She showed significant improvement with Risperdal.). [facility]. 66 year old sister who on 05/09/21. 93 year old Aunt in August 2021. Her Parents and all siblings are now. (all 5 brothers & 2 sisters are ). 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 On CPAP. Uses BiPAP. On Warfarin. MSE---Alert,Ox4,mood alright. Speech normal. Denies SI/HI. Denies hallucination or delusion. Denies manic or hypo manic symptoms. Insight & judgement alright. * Medical History:? * Surgical History:?bunion zoraida lokesh 1993total hysterectomy 1996hernia surgery 05/2000gallbladder * Hospitalization/Major Diagno stic Procedure:?Total Hysterectomy 1996Hernia Surgery 05/2000Gallbladder UTI 3consitpation 2022 * Family History:?Father: dece ased, 56- heart attack and brain aneurysm.?Mother: , 73- COPD.?Siblings: 28 brother- [id number]- AMA.?2 brother(s) , 1 sister(s) . 1 son(s) , 2 daughter(s) - healthy. .? * Social History:?Primary Social History:?Living Arrangement?Living Arrangement:?Independent Living,?Is this a supportive environment??Yes.?Alcohol Use?Alcohol Use Frequency:?Never.?Illicit Substance Usage?Illicit Substance Usage:?No.?Employment Status?Employment Status:?Unemployed.? * Medications:?TakingEliquis P ravastatin Sodium 40 MG Tablet 1 tablet Orally Once a day Levothyroxine Sodium 150 MCG Tablet 1 tablet in the morning on an empty stomach Orally Once a day dilTIAZem HCl ER Beads 120 MG Capsule Extended Release 24 Hour 1 capsule Orally Once a day Magnesium Bisglycinate 100 MG Tablet 2 tablets (400mg) Orally twice a day Metoprolol Succinate 25 MG Capsule ER 24 Hour Sprinkle 1/2 capsule Orally Once a day Warfarin Sodium 2 MG Tablet 1 tablet Orally Once a day Lisinopril 5 MG Tablet 1 tablet Orally Once a day Admelog 100 UNIT/ML Solution as directed Subcutaneous 9-15 units 3 times a day Basaglar KwikPen 100 UNIT/ML Solution Pen-injector as directed Subcutaneous 62 units twice a day Lexapro 10 MG Tablet 1 tablet Orally Once a day Lexapro 20 MG Tablet 1 tablet Orally Once a day SEROquel 300 MG Tablet 1 tablet at bedtime Orally Once a day SEROquel 50 MG Tablet 1 tablet in morning Orally Once a day RisperDAL 1 MG Tablet 1.5 tablet Orally twice a day busPIRone HCl 30 MG Tablet 1 tablet Orally Twice a day Taking Eliquis Taking Pravastatin Sodium 40 MG Tablet 1 tablet Orally Once a day Taking Levothyroxine Sodium 150 MCG Tablet 1 tablet in the morning on an empty stomach Orally Once a day Taking dilTIAZem HCl ER Beads 120 MG Capsule Extended Release 24 Hour 1 capsule Orally Once a day Taking Magnesium Bisglycinate 100 MG Tablet 2 tablets (400mg) Orally twice a day Taking Metoprolol Succinate 25 MG Capsule ER 24 Hour Sprinkle 1/2 capsule Orally Once a day Taking Warfarin Sodium 2 MG Tablet 1 tablet Orally Once a day Taking Lisinopril 5 MG Tablet 1 tablet Orally Once a day Taking Admelog 100 UNIT/ML Solution as directed Subcutaneous 9-15 units 3 times a day Taking Basaglar KwikPen 100 UNIT/ML Solution Pen-injector as directed Subcutaneous 62 units twice a day Taking Lexapro 10 MG Tablet 1 tablet Orally Once a day Taking Lexapro 20 MG Tablet 1 tablet Orally Once a day Taking SEROquel 300 MG Tablet 1 tablet at bedtime Orally Once a day Taking SEROquel 50 MG Tablet 1 tablet in morning Orally Once a day Taking RisperDAL 1 MG Tablet 1.5 tablet Orally twice a day Taking busPIRone HCl 30 MG Tablet 1 tablet Orally Twice a day Not-TakingCosentyx 300 Dose , Notes to Pharmacist: 1 monthlymetFORMIN HCl 500 MG Tablet 1 tablet with a meal Orally twice a day Medication List reviewed and reconciled with the patientNot-Taking Cosentyx 300 Dose , Notes to Pharmacist: 1 monthlyNot-Taking metFORMIN HCl 500 MG Tablet 1 tablet with a meal Orally twice a day Medication List reviewed and reconciled with the patient * Allergies:?Sulfa Antibiotics TheophyllineCitalopram HydrobromideCefuroxime AxetilCiproCodeine SulfateErythromycin BaselevoFLOXacinTrimethoprimSulfamethoxazoleLidocaineno[Allergies Verified] Objective: * Vitals:?Initials: ws, LMP: H yst, Pain scale:0. Assessment: * Assessment: 1.?Schizoaffective disorder - F25.9??? Plan: * Treatment: * Procedure Codes:? * Follow Up:?3 Months * * RANCE OFFICER Sign off status: Completed true * Provider:?Fannie Campuzano Date:?05/19/2024 Generated for Delilah castle/Vinicio/eTransmshana on:?07/12/2024 05:42 AM ASSURANCE OFFICER History and Physical Notes * HPI (History of Present Illness) Category Sub-Category Detail Notes Category Not es Depression Screening PHQ9 PHQ-2 (2015 Edition) Little interest or pleasure in doing things?: Not at all Phone session today Reports she has been in [facility] since beginning of March 2024. Reports feeling depressed because being there . Pt reports she is doing alright. Medications are working. Denies side effects. Sleep is alright. Denies hallucination or delusions. Appetite is alright. Denies SI/HI. Denies manic or hypo manic symptoms. Anxiety is under control. (Pt was inpatient at [facility] for 22 days .Pt was first on medical floor because she had covid with no symptoms. Pt was paranoid, delusional. She thought she had no insurance, no money, no food and she stopped takin medicines at home and taking care of self. She started declining after she moved to [facility] apartment alone. Pt had he mdications adjusted in hospital and also Risperdal was added. She showed significant improvement with Risperdal.). [facility]. 66 year old sister who on 05/09/21. 93 year old Aunt in August 2021. Her Parents and all siblings are now. (all 5 brothers & 2 sisters are ). 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 On CPAP. Uses BiPAP. On Warfarin. MSE---Alert,Ox4,mood alright. Speech normal. Denies SI/HI. Denies hallucination or delusion. Denies manic or hypo manic symptoms. Insight & judgement alright Feeling down, depressed, or hopeless?: N ot at all Total Score: 0 Depression Screening PHQ-9 Little inte rest or pleasure in doing things: Not at all Feeling down, depressed, or hopeless: Se veral days Trouble falling or staying asleep, or sl eeping too much: Not at all Feeling tired or having little energy: S everal days Poor appetite or overeating: Not at all Feeling bad about yourself o r that you are a failure, or have let yourself or your family down: Not at all Trouble concentrating on thi ngs, such as reading the newspaper or watching television: Several days Moving or speaking so slowly that other people could have noticed; or the opposite, being so fidgety or restless that you have been moving around a lot more than usual: Not at all Thoughts that you would be b chris off or of hurting yourself in some way: Not at all Total Score: 3 Interpretation: Minimal Depression Screening Izard Suicide Sev erity Rating Scale (LF) Do you want to initiate with: Screener form ?1. Wish to be : Have yo u wished you were or wished you could go to sleep and not wake up?: No ?2. Suicidal Thoughts: Have you actually had any thoughts of killing yourself?: No ?6. Suicide Behaviour: Have you ever done anything,started to do anything, or prepared to end your life?: No ?Interpretation:: Low Risk
--- OUTSIDE RECORDS SUMMARY | 2024-07-12 05:42 | XMS_ITS | Encounter Summary ---
Author Organization [facility] Address [address] [place] [address] Care Team Providers Care Cargo Vessel Stewardess Name Role Phone Lane Ring MD Primary Care Provider Reason for Visit * Reason Onset Date Comments Forms 03/23/2020 COSENTYX Encounter Details Date Type Department Care Team (Late st Contact Info) Description 03/23/2020 Telephone [facility] [address] [place] [address], [place] [address] Pastora Roy PA [address] [place] [address] [address] [place] [address] Forms (COSENTYX) Social History Tobacco Use Types Packs/Day [...] Telephone Encounter - Pastora Roy PA - 05/17/2020 3:36 PM CST I advised patient to call [employer] directly to discuss appeal as she feels strongly that she cannottake otezla due to small risk of depression as she has had very severe episodes. She can also provide dates for humira to them directly The other option would be for her to try to get patient assistance for cosentyx H DYEING RANGE TENDER * Telephone Encounter - Allyn Olmstead - 05/17/2020 2:45 PM CST Spoke with Patito with [employer]. Since the Appeal was submitted within 10 days of the PA being denied the Appeal was processed as the reconsideration vs appeal. However the reconsideration was denied 04/04/2020 for the following reasons: No submission of complete charts notes documenting the disease and treatment history, and documentation of adequate trial and failure and/or intolerance to Otezla and Humira. Please note that documentation must include dose, date ranges, and clinical outcome for all medications previously tried andfailed as appropriate. An appeal can be submitted within the next 7 days before time expires Letter sent to medical records to scan into chart Allyn Olmstead H DYEING RANGE TENDER * Telephone Encounter - Allyn Olmstead - 04/13/2020 2:14 PM CDT Spoke with Lei from [facility] and advised the appeal was submitted by our office and will update Allen when we receive decision from insurance carrier. Allyn Olmstead * Telephone Encounter - Katheryn Castaneda - 04/12/2020 4:03 PM CDT Carlos called re:Carol Gee needs her denial letter regarding medication. Please Advise * Telephone Encounter - Allyn Olmstead - 04/01/2020 3:31 PM CDT Appeal letter sent to [employer] with denial letter, quant gold results and office notes Confirmation of fax received Allyn Olmstead * Telephone Encounter - Pastora Roy PA - 03/31/2020 1:27 PM CDT Patient called back She called [employer] and was told we could complete an appeal for cosentyx She is not a great candidate for otezla due to h/o depression with admission for care And chronic diarrhea due to metformin - otezla can cause diarrhea which could put her at risk for electrolyte disturbances I completed appeal letter and forwarded to Allyn JULIO * Telephone Encounter - Pastora Roy PA - 03/29/2020 5:33 PM CDT We will try otezla Note sent to patient and will await conversation with her * Telephone Encounter - Allyn Olmstead - 03/29/2020 12:00 PM CDT Pt was denied Cosentyx Please see media tab Photo/Images with today's date times stamped 12:06pm for further details The original denial letter was sent to medical records to be scanned into chart Allyn Olmstead * Telephone Encounter - Allyn Olmstead - 03/23/2020 3:28 PM CDT Cosentyx form, office notes, [facility] PA form,face sheet and tb results were faxed to Allen with confirmation of fax received Allyn Olmstead documented in this encounter Plan of Treatment Not on file documented as of this encounter Visit Diagnoses Not on filedocumented in this encounter Care Teams Cargo Vessel Stewardess Relationship Specialty Start Date End Date Lane Ring MD [address] [facility] [place] [address] PCP - General 08/03/16 04/10/21 documented as of this encounter
--- OUTSIDE RECORDS SUMMARY | 2024-07-12 05:42 | XMS_ITS | Encounter Summary ---
Author Organization [facility] Address [address] [place] [address]. [place], [place] [address] [place] [address] Care Team Providers Care Command Center Officer Name Role Phone Unavailable Primary Care Provider Unavailabl e Encounter Details Date Type Department Care Team (Late st Contact Info) Description 03/17/[address] [facility] [address] [place] [address] , Almaz Persaud MD Social History Tobacco Use Types Packs/Day Years Used Date Smoking Tobacco: Never Assessed Comments Unknown Sex and Gender Information Value Date Recorded Sex Assigned at Not on file Legal Sex Female 4:03 PM CDT Gender Identity Not on file Sexual Orientation Not on file documented as of this encounter Plan of Treatment Not on file documented as of this encounter Visit Diagnoses Not on filedocumented in this encounter
--- OUTSIDE RECORDS SUMMARY | 2024-07-12 05:42 | XMS_ITS | Encounter Summary ---
Author Organization [facility] Address [address] [place] [address] Care Team Providers Care Director Of Programming Name Role Phone Lane Ring MD Primary Care Provider [phone] Reason for Visit * Reason Onset Date Comments Results 03/15/2020 Encounter Details Date Type Department Care Team (Late st Contact Info) Description 03/15/2020 Telephone [facility] [address] [place] [address], [place] [address] Stephy Fitzpatrick MD [facility] [address] Results Social History Tobacco Use Types Packs/Day Years [...] encounter Miscellaneous Notes * Telephone Encounter - Raiza Jin RN - 03/15/2020 9:31 AM CDT Received mail from [facility] with imaging results. Will rightfax to farideh THOMAS box. documented in this encounter Plan of Treatment Not on file documented as of this encounter Visit Diagnoses Not on filedocumented in this encounter Care Teams Director Of Programming Relationship Specialty Start Date End Date Lane Ring MD [address] [place] [address] PCP - General 08/03/16 04/10/21 documented as of this encounter
--- OUTSIDE RECORDS SUMMARY | 2024-07-12 05:42 | XMS_ITS | Encounter Summary ---
Author Organization [facility] Address [address] [place] [address] Care Team Providers Care Hay Chopper Name Role Phone Lane Ring MD Primary Care Provider [phone] Reason for Visit * Reason Onset Date Comments General 07/14/2019 Encounter Details Date Type Department Care Team (Late st Contact Info) Description 07/14/2019 Telephone [facility] [address] [place], [place] [id number] Pastora Roy PA [address] [facility] [address] [place] [address] General Social History Tobacco Use Types Packs/Day Years [...] encounter Miscellaneous Notes * Telephone Encounter - Makenna Pandey - 07/15/2019 9:22 AM CST Called and LVM with pt letting her know she will have to wait to be seen in order to know what testing will be needed. Pt has not been seen since 2017. Makenna Pandey WINTERIZER * Telephone Encounter - Osiris Reyes - 07/14/2019 3:03 PM CST Pt called wanting to know if there were any lab orders that she could get early prior to her appointment so that he results could be there on her appointment date. Please advise WINTERIZER documented in this encounter Plan of Treatment Not on file documented as of this encounter Visit Diagnoses Not on filedocumented in this encounter Care Teams Hay Chopper Relationship Specialty Start Date End Date Lane Ring MD [address] [place] [address] PCP - General 08/03/16 04/10/21 documented as of this encounter
--- OUTSIDE RECORDS SUMMARY | 2024-07-12 05:42 | XMS_ITS | Encounter Summary ---
Author Organization [facility] Address [address] [place] [address]. [place], [place] [address] [place] [address] Care Team Providers Care Fish Hatchery Specialist Name Role Phone Unavailable Primary Care Provider Unavailabl e Encounter Details Date Type Department Care Team (Late st Contact Info) Description 06/20/2020 1:25 PM INVENTORY ASSOCIATE Laboratory Only [facility] Family Medicine [place] [address] [facility], [address] [place] [address] Social History Tobacco Use Types Packs/Day Years [...] Procedure Name Priority Date/Time Associated Diagnosis Comments CORONAVIRUS (COVID 19) Routine 06/20/2020 1:16 PM INVENTORY ASSOCIATE Encounter for screening laboratory testing for COVID-19 virus documented in this encounter Results * (ABNORMAL) CORONAVIRUS (COVID 19) [facility] (06/20/2020 1:16 PM INVENTORY ASSOCIATE) CORONAVIRUS SARS COV 2 PCR (RESP) DETECTED( A) NOT DETECTED [facility] [place] Comment: A Detected result is considered a positive test result for COVID-19. ??This indicates that RNA from SARS-CoV-2 (formerly 2019-nCoV) was detected, and the patient is infected with the virus and presumed to be contagious. If requested by public health authority, specimen will be sent for additional testing. Please review the Fact Sheets and FDA authorized labeling available for health care providers and patients using the following websites: https://www.BlackbookHR.TransEnterix/home/Covid-19/HCP/NAAT/fact-sheet2 https://www.BlackbookHR.[employer]Enterix/home/Covid-19/Patients/NAAT/ fact-sheet2 ?? This test has been authorized by the FDA under an Emergency Use Authorization (EUA) for use by authorized laboratories. Due to the current public health emergency, [facility] is receiving a high volume of samples from a wide variety of swabs and media for COVID-19 testing. In order to serve patients during this public health crisis, samples from appropriate clinical sources are being tested. Negative test results derived from specimens received in non-commercially manufactured viral collection and transport media, or in media and sample collection kits not yet authorized by FDA for COVID-19 testing should be cautiously evaluated and the patient potentially subjected to extra precautions such as additional clinical monitoring, including collection of an additional specimen. Methodology: ??Nucleic Acid Amplification Test (NAAT) includes RT-PCR or TMA ?? Additional information about COVID-19 can be found at the [facility] website: www.FiberLight/Covid19. NASAL STRUCTURE / Unknown 06/20/2020 1:16 PM INVENTORY ASSOCIATE 06/21/2020 11:18 AM INVENTORY ASSOCIATE Heidi Ann NP MICROBIOLOGY - GENERAL ORDE KAMILA Final Result Performing Organization Address City/State/[facility] Co de Phone Number [employer] - [facility] [address] [place] [address] documented in this encounter Visit Diagnoses Diagnosis Encounter for screening laboratory testing for COVID-19 virus documented in this encounter Additional Health Concerns Infection Onset Date Last Indicated Resolved Time COVID-19 Rule Out 06/20/2020 06/20/2020 06/22/2020 4:10 AM INVENTORY ASSOCIATE documented as of this encounter
--- OUTSIDE RECORDS SUMMARY | 2024-07-12 05:42 | XMS_ITS | Encounter Summary ---
Author Organization [facility] Address [address] [place] [address] Care Team Providers Care Bilingual Branch Manager Name Role Phone Lane Ring MD Primary Care Provider [phone] Reason for Visit * Reason Onset Date Comments Results 03/11/2020 XR done at [facility] Encounter Details Date Type Department Care Team (Late st Contact Info) Description 03/11/2020 Telephone [facility] [address] [place] [address], [place] [place] [address] Stephy Fitzpatrick MD [address] [place] [address] [place] [address] Results (XR done at [facility]) Social History Tobacco Use Types Packs/Day Years [...] Miscellaneous Notes * Telephone Encounter - Raiza Cooper LPN - 03/11/2020 5:12 PM CDT Patient following up to be sure we received results of her XR done at [facility] [place]. Call back #[phone] documented in this encounter Plan of Treatment Not on file documented as of this encounter Visit Diagnoses Not on filedocumented in this encounter Care Teams Bilingual Branch Manager Relationship Specialty Start Date End Date Lane Ring MD [address] [place] [address] PCP - General 08/03/16 04/10/21 documented as of this encounter
--- OUTSIDE RECORDS SUMMARY | 2024-07-12 05:42 | XMS_ITS | Encounter Summary ---
Author Organization [facility] Address [address] [place] [address]. [place], [place] [address] [place] [address] Care Team Providers Care Tying In Machine Operator Name Role Phone Unavailable Primary Care Provider Unavailabl e Encounter Details Date Type Department Care Team (Late st Contact Info) Description 03/30/2005 Abstract [place] [address] , Generic Conversion, Social History Tobacco Use Types Packs/Day Years [...]
--- OUTSIDE RECORDS SUMMARY | 2024-07-12 05:42 | XMS_ITS | Encounter Summary ---
Author Organization [facility] Address [address] [place] [address]. [place], [place] [address] [place] [address] Care Team Providers Care Folder Taper Operator Name Role Phone Unavailable Primary Care Provider Unavailabl e Encounter Details Date Type Department Care Team (Late st Contact Info) Description 09/04/[address] [facility] [address] [place] [address] , Almaz Persaud MD Social History Tobacco [...]
--- OUTSIDE RECORDS SUMMARY | 2024-07-12 05:42 | XMS_ITS ---
Author Organization [facility] Address [address] [place] [address] Care Team Providers Care Maxillofacial Surgeon Name Role Phone Fannie Campuzano Primary Care Provider [phone] REASON FOR VISIT refills Medications Medication SIG (Take, Route, Fr equency, Duration) Notes Start Date End Date Status RisperDAL 1 MG 1.5 tablet Orally tw ice a day for 30 days Active SEROquel 50 MG 1 tablet in morning Orally Once a day for 30 days Active SEROquel 300 MG 1 tablet at bedtime Orally Once a day for 30 days Active Lexapro 20 MG 1 tablet Orally Once a day for 30 days Active Lexapro 10 MG 1 tablet Orally Once a day for 30 days Active busPIRone HCl 30 MG 1 tablet Orally Twic e a day for 30 days Active Social History Sex Assigned At : Social History Observation Description Sex Assigned At Female Encounters Encounter Location Date Provider Diagnosis [address] [place] [address] 05/20/2024 Fannie Campuzano Schizoaffective diso rder F25.9 Assessments Encounter Date Diagnosis (ICD Code) Assessment Notes Treatment Notes Treatment Clinical Notes Section Notes 05/20/2024 Schizoaffective disorder (ICD-10 - F25.9) Plan Of Treatment Medication Medication Name Sig Start Date Stop Date Notes RisperDAL 1 MG 1.5 tablet Orally tw ice a day for 30 days SEROquel 50 MG 1 tablet in morning Orally Once a day for 30 days SEROquel 300 MG 1 tablet at bedtime Orally Once a day for 30 days Lexapro 20 MG 1 tablet Orally Once a day for 30 days Lexapro 10 MG 1 tablet Orally Once a day for 30 days busPIRone HCl 30 MG 1 tablet Orally Twic e a day for 30 days Progress Notes * Hermila GEEsDOB:1955 (68 yo F)Acc No.[id number]:05/20/2024 Patient:?Carol GEE :1955???Age:68 Y???Sex:Female Address:[address] [place] [address], [place] [address], [place], [place], [place] [address] * Refills? Refill busPIRone HCl Tablet, 30 MG, Orally, 60 Tablet, 1 tablet, Twice a day, 30 days, Refills=1 Refill Lexapro Tablet, 10 MG, Orally, 30 Tablet, 1 tablet, Once a day, 30 days, Refills=1 Refill Lexapro Tablet, 20 MG, Orally, 30 Tablet, 1 tablet, Once a day, 30 days, Refills=1 Refill SEROquel Tablet, 300 MG, Orally, 30 Tablet, 1 tablet at bedtime, Once a day, 30 days, Refills=1 Refill SEROquel Tablet, 50 MG, Orally, 30 Tablet, 1 tablet in morning, Once a day, 30 days, Refills=1 Refill RisperDAL Tablet, 1 MG, Orally, 90 Tablet, 1.5 tablet, twice a day, 30 days, Refills=1 * true * Date:? Generated for Delilah castle/Vinicio/Radhaitting on:?07/12/2024 05:42 AM FIELD STAFF MANAGER
--- OUTSIDE RECORDS SUMMARY | 2024-07-12 05:42 | XMS_ITS | Encounter Summary ---
Author Organization [facility] Address [address] [place] [address]. [place], [place] [address] [place] [address] Care Team Providers Care Hazard Waste Handler Name Role Phone Unavailable Primary Care Provider Unavailabl e Encounter Details Date Type Department Care Team (Late st Contact Info) Description 06/19/2020 Patient Self-Triage [facility] DEPARTMENT [address] [place] [address] [place], [employer] Provider Social History Tobacco Use Types Packs/Day Years Used Date Smoking Tobacco: Never Assessed Comments Unknown Sex and Gender Information Value Date Recorded Sex Assigned at Not on file Legal Sex Female 4:03 PM CDT Gender Identity Not on file Sexual Orientation Not on file documented as of this encounter Plan of Treatment Not on file documented as of this encounter Results * (ABNORMAL) CORONAVIRUS (COVID 19) [facility] (06/20/2020 1:16 PM RN FACULTY) CORONAVIRUS SARS COV 2 PCR (RESP) DETECTED( A) NOT DETECTED [facility] [place] Comment: A Detected result is considered a [...] providers and patients using the following websites: https://www.Sellvana.[facility] [place]/home/Covid-19/HCP/NAAT/fact-sheet2 https://www.Sellvana.[facility] [place]/home/Covid-19/Patients/NAAT/ fact-sheet2 ?? This test has been authorized by the FDA under an Emergency Use Authorization (EUA) for use by authorized laboratories. Due to the current public health emergency, [facility] is receiving a high volume of samples [...] about COVID-19 can be found at the [facility] website: www.[employer].[facility] [place]/Covid19. NASAL STRUCTURE / Unknown 06/20/2020 1:16 PM RN FACULTY 06/21/2020 11:18 AM RN FACULTY Heidi Ann NP MICROBIOLOGY - GENERAL ORDE KAMILA Final Result [facility] [address] [address] [address] documented in this encounter Visit Diagnoses Diagnosis Encounter for screening laboratory testing for COVID-19 virus- Primary documented in this encounter
--- OUTSIDE RECORDS SUMMARY | 2024-07-12 05:42 | XMS_ITS | Encounter Summary ---
Author Organization [facility] Address [address] [place] [address] Care Team Providers Care Waste Transportation Technician Name Role Phone Lane Ring MD Primary Care Provider [phone] Encounter Details Date Type Department Care Team (Late st Contact Info) Description 09/23/2020 Orders Only [facility] - COVID Vaccine [address] [place] [address] Alejandro Owens MD [address] [place] [address] Need for vaccination Social History Tobacco Use Types Packs/Day Years [...] as of this encounter Visit Diagnoses Diagnosis Need for vaccination Need for prophylactic vaccination and inoculation against unspecified single disease documented in this encounter Care Teams Waste Transportation Technician Relationship Specialty Start Date End Date Lane Ring MD [address] [place] [address] PCP - General 08/03/16 04/10/21 documented as of this encounter
--- OUTSIDE RECORDS SUMMARY | 2024-07-12 05:42 | XMS_ITS | Encounter Summary ---
Author Organization [facility] Address [address] [place] [address] Care Team Providers Care Weatherization Specialist Name Role Phone Lane Ring MD Primary Care Provider [phone] Reason for Visit * Reason Onset Date Comments LABS ONLY 03/14/2020 Encounter Details Date Type Department Care Team (Late st Contact Info) Description 03/14/2020 Telephone [facility] [address] [place] [address], [place] [address] Stephy Fitzpatrick MD [facility] [place] [address] LABS ONLY Social History Tobacco Use Types Packs/Day Years [...] encounter Miscellaneous Notes * Telephone Encounter - Stephy Fitzpatrick MD - 03/14/2020 3:28 PM CDT called the pt and updated on labs. inflam markers elevated, pt did report h/o transaminitis with MTX and that she was taken off of it to that. mentioned about Enbrel which would help both her skin and joints, pt said that she wants to wait till seen by Derm later this week and will let me know after that. documented in this encounter Plan of Treatment Not on file documented as of this encounter Visit Diagnoses Not on filedocumented in this encounter Care Teams Weatherization Specialist Relationship Specialty Start Date End Date Lane Ring MD [address] [place] [address] PCP - General 08/03/16 04/10/21 documented as of this encounter
--- OUTSIDE RECORDS SUMMARY | 2024-07-12 05:42 | XMS_ITS | Clinical Summary ---
Author Organization [facility] Address [address] [place] [address]. [place] [address] Care Team Providers Care District Claims Manager Name Role Phone Unavailable Primary Care Provider Unavailabl e Social History Tobacco Use Types Packs/Day Years Used Date Smoking Tobacco: Never Assessed Comments Unknown Sex and Gender Information Value Date Recorded Sex Assigned at Not on file Legal Sex Female 4:03 PM CDT Gender Identity Not on file Sexual Orientation Not on file Plan of Treatment Health Maintenance Due Date Last Done Comments Colorectal Cancer Screening Colonoscopy (10 Years) 1955 Hepatitis C 1974 DTaP, Tdap and Td Vaccines ( 1 - Tdap) 11/14/1975 Mammogram Screening 1996 Zoster Vaccines (1 of 2) 2006 Dexa Scan (General) 2021 Pneumococcal Vaccine: 65+ Ye ars (1 of 1 - PCV) 2021 COVID-19 Vaccine ( - 2023-2 5 season) 2024 Influenza Adult (#1) 2024 RSV Immunization or 60+ Years (1 - 1-dose 75+ series) 11/14/2031 Meningococcal Vaccine Aged Out No gwyn ara eligible based on patient's age to complete this topic RSV Immunizations Under 20 Months Aged Out No longer eligible based on patient's age to complete this topic Insurance [employer]
--- OUTSIDE RECORDS SUMMARY | 2024-07-12 05:42 | XMS_ITS | Encounter Summary ---
Author Organization [facility] Address [address] [place] [address]. [place], [place] [address] [place] [address] Care Team Providers Care Supervisor Whipped Topping Name Role Phone Unavailable Primary Care Provider Unavailabl e Encounter Details Date Type Department Care Team (Late st Contact Info) Description 04/07/1991 Abstract [place] [address] , Generic Conversion, Social History Tobacco Use [...]
--- OUTSIDE RECORDS SUMMARY | 2024-07-12 05:42 | XMS_ITS | Encounter Summary ---
Author Organization [facility] Address [address] [place] [address] Care Team Providers Care Padded Box Sewer Name Role Phone Lane Ring MD Primary Care Provider [phone] Encounter Details Date Type Department Care Team (Late st Contact Info) Description 06/01/2020 12:20 PM CORE DRILL OPERATOR HELPER Video Visit [facility] Rheumatology [address] [place] [address], [facility] [place] [address] Stephy Fitzpatrick MD [address] [place] [address] [place] [address] Psoriatic arthritis (HCC) ; Other psoriasis Social History Tobacco Use Types [...] as of this encounter Progress Notes * Stephy Fitzpatrick MD - 06/01/2020 12:18 PM CST Telehealth Visit 06/01/2020 Patient Verification & Telemedicine Based Consent I am proceeding with this evaluation at the direct request of the patient. I have verified this is the correct patient and have obtained verbal consent from the patient/surrogate to perform this voluntary telemedicine encounter evaluation. I have explained risks (including potential loss of confiden tiality), benefits, alternatives, and the potential need for subsequent face to face care. Patient/surrogate understands that there is a risk of medical inaccuracies given that our recommendations will be made based on reported data. Knowing that there is a risk that this information is not reported accurately, and that the telemedicine audio, or data feed may be incomplete, the patient agrees toproceed with evaluation and holds us harmless knowing these risks. In this evaluation, we will be providing recommendations only. The patient/surrogate has been notified that other healthcare professionals (including students, residents and technical personnel) may be involved in this audio evaluation. All laws concerning confidentiality and patient access to medical records and copies of medicalrecords apply to telemedicine. I have reviewed this above verification and consent paragraph with the patient/surrogate. Diagnosis/Problem(s): 1. Psoriatic arthritis 2. Other psoriasis Interval History: CAROL GEE ( 1955) is a 64 year old female who has completed a telehealth visit regarding psoriasis and PsA. History obtained from patient, and review of prior medical records. She reported rotator cuff tear of right shoulder, cortisone shot by ortho, couldn't do PT due to current COVID-19 situation. She was also given steroids PO for 6 days which helped her joints pain. now she is hurting in her elbows,shoulders,knees and low back and relating to recent battery change. skin psoriasis also flared up. couldn't get cosentyx approved by insurance,now filled application for patient assistance program> waiting on their reply. cannot take oral NSAIDs due to being on coumadin. only takes Tylenol which does not help much. Alsopatient said that she had a recent visit with Cardiology and was told that she has CHF history so Enbrel was not considered earlier. Disease Hx: She has h/o skin psoriasis since she [...] and also off of MTX since 2017. ?? Later she developed hypercalcemia and had weight [...] was told no further evidence for malignancy. has Afib and takes coumadin for it. ?? Joint Exam: Not performed as this was a tele visit Lab/Diagnostics: Previous x-rays(done outside) showed mostly degenerative changes in her spine, knees, shoulders andhands. Assessment/Plan: CAROL GEE is a 64 year old female with longstanding history of skin psoriasis and possible psoriatic arthritis, osteoarthritis. She was started on Cosentyx by Dermatology, however insurance didnot approve it and now she is working with patient assistance program for Cosentyx, waiting on their reply. Previously dermatology discussed with insurance that patient cannot have Otezla due to history of severe depression in the past. Enbrel was not considered earlier considering possible CHF history. Patient cannot take NSAIDs due to being on anticoagulation. Previously developed transaminitison methotrexate and recently had elevated BGs with short course of steroids. Other options to consid er are leflunomide for her joint pain but it would not help her skin psoriasis. We will wait on patient assistance program to see if she qualifies for Cosentyx. Encounter duration: 15 min Patient/parent location: home Encounter performed using: [employer] audio DRILL OPERATOR HELPER documented in this encounter Plan of Treatment Not on file documented as of this encounter Visit Diagnoses Diagnosis Psoriatic arthritis (HCC)- Primary Psoriatic arthropathy Other psoriasis documented in this encounter Care Teams Padded Box Sewer Relationship Specialty Start Date End Date Lane Ring MD [address] [place] [address] PCP - General 08/03/16 04/10/21 documented as of this encounter
--- OUTSIDE RECORDS SUMMARY | 2024-07-12 05:42 | XMS_ITS | Encounter Summary ---
Author Organization [facility] Address [address] [place] [address] Care Team Providers Care Director Of Donor Relations Name Role Phone Lane Ring MD Primary Care Provider [phone] Reason for Visit * Reason Comments Psoriasis follow up i have h ad a lot of flare ups recently Encounter Details Date Type Department Care Team (Late st Contact Info) Description 03/16/2020 2:10 PM CDT Office Visit [facility] [address] [place] [address], [place] [id number] Pastora Roy PA [address] [place] [address] [address] [place] [address] Other psoriasis (Primary Dx) Social History Tobacco Use Types Packs/Day Years [...] * Patient Instructions* Pastora Roy PA - 03/16/2020 2:41 PM CDT Follow up in 12-14 weeks documented in this encounter Progress Notes * Pastora Roy PA - 03/16/2020 2:18 PM CDT Chief Complaint Patient presents with ??? Psoriasis follow up i have had a lot of flare ups recently ?? HPI: Carol Gee a 64 year old female presents for follow up of psoriasis Also with joint pain . Seen by Rheum Sept 2 and had work up done Dx over 30 years ago . 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 BASAGLAR KWIKPEN [...] facility-administered medications on file prior to visit. PE: No acute distress. Mood clear/affect appropriate. Alert and oriented. Mucous membranes moist. Sclera anicteric. Full body skin exam was conducted to include the scalp, face, lips/teeth, lids/conjunctiva, ears, neck, chest, abdomen, back, groin/buttock, right and left hands and forearms, right and left leg and feet and was normal with the following exceptions: Scaly patches with silvery scale on scalp and post auricular Scaly pink patches on face, torso, and extremities BSA 40% No nail pitting ?? LABS: Recent Labs Component Name 03/04/20 0954 05/09/17 1359 02/27/17 0917 SODIUM 140 - - POTASSIUM 4.2 - - CHLORIDE 101 - - CO2 30 26 29 BUN 19 15 15 CREATININE 1.07* 0.72 0.72 GLUCOSE 139* - - CALCIUM 9.7 10.1 10.2 ALT 13 16 22 ALKPHOS 78 99 97 AST 15 20 21 TBIL 0.4 - - TPROT 6.5 - - EGFR 55* - - EGFRAFR 64 - - ALBUMIN 3.3* - - Recent Labs Component Name 03/04/20 0954 05/09/17 1359 02/27/17 0917 12/31/16 0902 WBC 6.7 8.2 8.1 8.2 RBC 4.88 4.59 4.60 4.91 HGB 13.7 13.7 13.1 13.9 HCT 42.3 41.2 39.6 42.0 MCV 86.7 89.8 86.1 85.5 MCHC 32.4 33.3 33.1 33.1 PLTCOUNT 199 - - - NEUTPCT - 68.5 55.5 60.7 LYMPHPCT 27.9 - - - EOSINPCT 4.5 - - - BASOPHILPCT 0.6 - - - NEUTABS - 5,617 4,496 4,977 Recent Labs Component Name 03/04/20 0954 [id number] 31 Recent Labs Component Name 03/04/20 0954 12/14/16 1512 CRP 20.4* 1.52* Erythrocyte Sedimentation Rate [facility] Date Value Ref Range Status 12/14/2016 6 < OR = 30 mm/h Final Comment: Test Performed at: [facility] [employer] [facility] [address] [facility] [place] [address] ISABELLA RODRIGUEZ,,MPH ?? Component Ref Range & Units 12d ago Rheumatoid Factor <14 IU/mL <14 Component Ref Range & Units 12d ago Hepatitis C Antibody NON-REACTIVE NON-REACTIVE Signal to Cut-Off <1.00 0.03 Status: Final result Visible to patient: Yes (MyChart) Component Ref Range & Units 12d ago Hepatitis B Core Virus Antibody Total NON-REACTIVE NON-REACTIVE A/P: 1. Other psoriasis with joint involvement Uncontrolled Includes scalp involvement Prior tx with MTX , topical steroids, NBUVB and humira Not a good candidate for soriatane (acetretin ) due to h/o elevated LFT also with joint involvement, would not be a good choice Not a good candidate for Cyclosporin since she has Diabetes, renal impairment and this is not a exterminator helper termite treatment Proceed with cosentyx 300 mg at weeks 0,1,2,3,4, then every 4 weeks Counseled patient on all potential side effects of cosentyx including injection site reactions, risk of infection (including risk of reactivation of tuberculosis or risk of fungal infections), risk of lymphoma, and contraindication of medication in patients with hx of MS, recent malignancy, or signficant heart failure. She does have h/o of mild CHF and we did discuss this at length - triamcinolone acetonide (KENALOG) 0.1 % ointment; Apply to scaly patches from neck down 1-2 timesdaily Dispense: 454 g; Refill: 0 - hydrocortisone (HYTONE) 2.5 % ointment; Apply to face once daily Dispense: 30 g; Refill: 0 FUTURE 5 cosentyx trial reviewed - good data for joints Paperwork completed and given to Allyn JULIO to process Required labs completed - see above Follow up in 12 weeks Pastora VALDEZ, PA-C Associated attestation - Sanchez Solares MD - 03/18/2020 4:49 PM CDT Reviewed. Agree with Pastora Roy's PA assessment and plan. Sanchez Solares MD documented in this encounter Plan of Treatment Not on file documented as of this encounter Visit Diagnoses Diagnosis Other psoriasis- Primary documented in this encounter Care Teams Director Of Donor Relations Relationship Specialty Start Date End Date Lane Ring MD [address] [place] [address] PCP - General 08/03/16 04/10/21 documented as of this encounter
--- OUTSIDE RECORDS SUMMARY | 2024-07-12 05:42 | XMS_ITS | Encounter Summary ---
Author Organization [facility] Address [address] [place] [address] Care Team Providers Care Barber Stylist Name Role Phone Lane Ring MD Primary Care Provider [phone] Encounter Details Date Type Department Care Team (Late st Contact Info) Description 12/01/2020 4:00 PM CDT Video Visit [facility] [address] [place] [address], [facility] [place] [address] Stephy Fitzpatrick MD [address] [place] [address] [place] [address] Psoriatic arthritis (HCC) ; Chronic midline low back pain without sciatica; Other psoriasis Social History Tobacco Use Types [...] * Patient Instructions* Stephy Fitzpatrick MD - 12/01/2020 2:18 PM CDT 1. start Topical Diclofenac 2. get PT for low back and hips 3. follow up in 3 months documented in this encounter Progress Notes * Stephy Fitzpatrick MD - 12/05/2020 11:11 AM CDT Telehealth Visit 12/05/2020 Patient Verification & Telemedicine Based Consent I [...] the patient/surrogate. Diagnosis/Problem(s): 1. Psoriatic arthritis 2. Chronic midline low back pain without sciatica 3. Other psoriasis Interval History: CAROL GEE ( 1955) is a 65 year old female who has completed a telehealth visit regarding psoriasis and polyarthralgia. History obtained from patient, and review of prior medical records. 65-year-old lady with history of skin psoriasis and psoriatic arthritis who is currently on Cosentyx by dermatology, started in September. Patient reported that Cosentyx is helping her skin psoriasis although she continues to have diffusepain in multiple joints including her low back pain. Assessment/Plan: CAROL GEE is a 65 year old female with psoriasis and polyarthralgia. her joints x rays showed mostly DJD changes. her joints pain are likely related to OA though there could ne component of PsA.She cannot take NSAIDs due to being on AC. as she recently started Cosentyx so would wait and see if she shows some improvement in her joints pain. her most symptoms are low back/hips pain, will refer to PT for low back/hip pain. start Topical diclofenac for other peripheral joints pain. Orders Placed This Encounter ??? AMB Ref Physical Therapy - [facility] PT Standing Status: Future Standing Expiration Date: 12/01/2021 Referral Priority: Routine Referral Type: PT/OT/ST Referral Reason: Specialty Services Required Number of Visits Requested: 1 ??? diclofenac sodium (VOLTAREN) 1 % gel Sig: Apply 4 (four) g to affected area 4 times daily 2 gm amount for elbow, wrist or hand 4 gm amount for knee, ankle or foot Dispense: 2 tube Refill: 1 Encounter duration: 15 min Patient/parent location: home Encounter performed using: [employer] audio documented in this encounter Plan of Treatment Not on file documented as of this encounter Visit Diagnoses Diagnosis Psoriatic arthritis (HCC)- Primary Psoriatic arthropathy Chronic midline low back pain without sciatica Other psoriasis documented in this encounter Care Teams Barber Stylist Relationship Specialty Start Date End Date Lane Ring MD [address] [place] [phone] PCP - General 08/03/16 04/10/21 documented as of this encounter
--- OUTSIDE RECORDS SUMMARY | 2024-07-12 05:42 | XMS_ITS | Encounter Summary ---
Author Organization [facility] Address [address] [place] [address] Care Team Providers Care Environmental Consultant Name Role Phone Lane Ring MD Primary Care Provider [phone] Reason for Visit * Reason Onset Date Comments Med Question 03/25/2020 Encounter Details Date Type Department Care Team (Late st Contact Info) Description 03/25/2020 Telephone [facility] [address] [place] [address] Pastora Roy PA [address] [facility] [address] [place] [phone] Med Question Social History Tobacco Use Types Packs/Day [...] Telephone Encounter - Pastora Roy PA - 06/15/2020 2:23 PM CST Patient called to say she needs a PA completed for cosentyx I called the number she provided and [employer] has already processed and denied this I called her back and she told me she mustve accidentally called [employer] yesterday thinking she was calling [employer] She will call [employer] and see if anything additional is needed OR FIRE PROTECTION ENGINEER * Telephone Encounter - Pastora Roy PA - 05/19/2020 2:05 PM CST Patient decided to pursue [employer] patient assistance for cosentyx I completed provider portion of form She is working with them to get her portion completed OR FIRE PROTECTION ENGINEER * Telephone Encounter - Allyn Olmstead - 03/29/2020 11:59 AM CDT Replied to patient via [employer] see encounter dated 03/24/2020 patient message Allyn Olmstead * Telephone Encounter - Osiris Reyes - 03/25/2020 12:24 PM CDT Pt called and left a vm stating that her insurance company called and denied a medication she was prescribed. She is requesting a call back because they are needing documentation for an appeal. Please advise documented in this encounter Plan of Treatment Not on file documented as of this encounter Visit Diagnoses Not on filedocumented in this encounter Care Teams Environmental Consultant Relationship Specialty Start Date End Date Lane Ring MD [address] [place] [phone] PCP - General 08/03/16 04/10/21 documented as of this encounter
--- OUTSIDE RECORDS SUMMARY | 2024-07-12 05:43 | XMS_ITS | Encounter Summary ---
Author Organization [facility] Address [address] [place] [address] Care Team Providers Care Director Biologics Name Role Phone Lane Ring MD Primary Care Provider + Reason for Visit * Reason Onset Date Comments Referral 01/15/2018 Encounter Details Date Type Department Care Team (Late st Contact Info) Description 01/15/2018 Telephone [facility] Oncology and Hematology - [address] [address] Alberto Akbar MD [address] [facility] [address] [place] [address] Referral Social History Tobacco Use Types Packs/Day Years [...] encounter Miscellaneous Notes * Telephone Encounter - Sadaf Mooney RN - 01/15/2018 11:09 AM CDT 01-14-18 Dr. Akbar spoke to Dr. Richardson, referring to [facility] for possible removal of lymph node due to inability to get lymph node biopsy. Dr. Richardson office contacted, pt scheduled for 01-29-18 at 1015, pt notified. Pt to picking table worker CD of November PET scan and take to appt, requested from [facility]. Sadaf S Vinicio, RN documented in this encounter Plan of Treatment Not on file documented as of this encounter Visit Diagnoses Not on filedocumented in this encounter Care Teams Director Biologics Relationship Specialty Start Date End Date Lane Ring MD [address] [place] [address] PCP - General Internal Medicine 12/17/17 documented as of this encounter
--- OUTSIDE RECORDS SUMMARY | 2024-07-12 05:43 | XMS_ITS | Patient Health Record ---
Author Organization [facility] Address [address] [place] [address] Care Team Providers Care Plastic Mixer Name Role Phone Fannie Campuzano Primary Care [...] (substance) Sulfa Antibiotics Unknown Drug Allergy Active Reason For Referral No Information Medications Medication SIG (Take, Route, Frequency, Duration) Notes Start Date End Date Status Cosentyx 300 Dose 1 monthly No t-Taking Basaglar KwikPen 100 UNIT/ML as directed Subcutaneous 62 units twice a day Active Lisinopril 5 MG 1 tablet Orally Once a day for 30 day(s) Active Admelog 100 UNIT/ML as directed Subcutaneous 9-15 units 3 times a day Active Metoprolol Succinate 25 MG 1/2 capsule Orally Once a day Active Warfarin Sodium 2 MG 1 tablet Orally Onc e a day for 30 days Active dilTIAZem HCl ER Beads 120 MG 1 capsule Orally Once a day for 30 day(s) Active Magnesium Bisglycinate 100 MG 2 tablets (400mg) Orally twice a day Active Pravastatin Sodium 40 MG 1 tablet Orally Once a day for 30 day(s) Active Levothyroxine Sodium 150 MCG 1 tablet in the morning on an empty stomach Orally Once a day for 30 day(s) Active RisperDAL 1 MG 1.5 tablet Orally twice a day for 30 days Active Eliquis Active SEROquel 50 MG 1 tablet in [...] e a day for 30 days Active metFORMIN HCl 500 MG 1 tablet with a car l Orally twice a day Not-Taking Social History Tobacco Use: Social History Observation Description Date Details (start date - stop date) Never Smoker NA - NA Sex Assigned At : Social History Observation Description Sex Assigned At Female Dont use, Tobacco Use/Smoking Question Answer Notes Are you a nonsmoker Tobacco Control (Standard) Question Answer Notes Tobacco use: Nonsmoker Problems Problem Type SNOMED Code ICD Code Onset Dates Problem Status W/U Status Risk Notes Problem Schizoaffective disorder (00202269) Schizoaffective disorder (F25.9) Active confirmed Vital Signs Height 5ft 7 in in 09/24/2023 Weight 227 lbs 09/24/2023 BMI 35.55 kg/m2 09/24/2023 Encounters Encounter Location Date Provider Diagnosis [address] [address] 07/30/2023 Arif Habib Schizoaffective diso rder F25.[address] [place] [address] 09/24/2023 Arif Habib Schizoaffective diso rder F25.[address] [place] [address] 10/22/2023 Arif Habib Schizoaffective diso rder F25.[address] [place] [address] 01/24/2024 Arif Habib Schizoaffective diso rder F25.[address] [place] [address] 03/24/2024 Arif Habib Schizoaffective diso rder F25.[address] [address] 05/19/2024 Arif Habib Schizoaffective diso rder F25.[address] [address] 09/02/2023 Arif Habib [address] [address] 09/19/2023 Arif Habib Schizoaffective diso rder F25.[address] [place] [address] 09/23/2023 Arif Habib [address] [address] 01/21/2024 Arif Habib Schizoaffective diso rder F25.[address] [address] 01/24/2024 Arif Habib [address] [address] 03/03/2024 Arif Habib Schizoaffective diso rder F25.[address] [address] 03/27/2024 Arif Habib Schizoaffective diso rder F25.[address] [address] 05/20/2024 Arif Habib Schizoaffective diso rder F25.9 Assessments Encounter Date Diagnosis (ICD Code) Assessment Notes Treatment Notes Treatment Clinical Notes Section Notes 07/30/2023 Schizoaffective disorder (ICD-10 - F25.9) risk & benefits discussed. Continue current treatment. No involuntary movements reported. 09/24/2023 Schizoaffective disorder (ICD-10 - F25.9) risk & benefits discussed. Continue current treatment. No involuntary movements reported. Increase Risperdal 1.5 mg BID, stop TRazodone 09/19/2023 Schizoaffective disorder (ICD-10 - F25.9) 10/22/2023 Schizoaffective disorder (ICD-10 - F25.9) risk & benefits discussed. Continue current treatment. No involuntary movements reported. Continue Risperdal 1.5 mg BID,and other medicications. 01/24/2024 Schizoaffective disorder (ICD-10 - F25.9) risk & benefits discussed. Continue current treatment. No involuntary movements reported. Continue current medicications. 01/21/2024 Schizoaffective disorder (ICD-10 - F25.9) 03/24/2024 Schizoaffective disorder (ICD-10 - F25.9) risk & benefits discussed. Continue current treatment. No involuntary movements reported. Continue current medicications. 03/03/2024 Schizoaffective disorder (ICD-10 - F25.9) 03/27/2024 Schizoaffective disorder (ICD-10 - F25.9) 05/19/2024 Schizoaffective disorder (ICD-10 - F25.9) risk & benefits discussed. Continue current treatment. No involuntary movements reported. Continue current medicications. 05/20/2024 Schizoaffective disorder (ICD-10 - F25.9) Plan Of Treatment No Information Insurance Providers Payer Name Payer Address Payer Phone Subscriber Number Group Number Insured Name Patient Relationship to Insured Coverage Start Date Coverage End Date MEDICARE PART A [address] [place] [address] [id number] Carol Gee Self - patient is the insured 2 [facility] Claims Department [address] [place] [address] [phone] [id number] Carol Gee Self - patient is the insured 3 [facility] Claims Department [address] [place] [address] [phone] [id number] Carol Gee Self - patient is the insured 0 2 [facility] Claims Department [address] [place] [address] [id number] Carol Gee Self - patient is the insured 0 2 [facility] Claims Department [address] [place] [address] [id number] Carol Gee Self - patient is the insured 3 Medical (General) History Medical History History ICD Code Hyperlipidemia Diabetes Surgical History Surgery Date(Month/Year) bunion surgery 1992 total hysterectomy 1996 hernia surgery 05/2000 gallbladder Hospitalization History Reason Date(Month/Year) consitpation 2022 UTI 2022 Gallbladder Hernia Surgery 05/2000 Total Hysterectomy 1997
--- OUTSIDE RECORDS SUMMARY | 2024-07-12 05:43 | XMS_ITS | Encounter Summary ---
Author Organization [facility] Address [address] [place] [address] Care Team Providers Care Certified Pediatric Nurse Practitioner Name Role Phone Lane Ring MD Primary Care Provider + Encounter Details Date Type Department Care Team (Late st Contact Info) Description 12/31/2017 Orders Only [facility] Oncology and Hematology - [place] [address] [address] Sadaf Mooney RN Social History Tobacco Use Types Packs/Day Years [...] on filedocumented in this encounter Care Teams Certified Pediatric Nurse Practitioner Relationship Specialty Start Date End Date Lane Ring MD [address] [place] [address] PCP - General Internal Medicine 12/17/17 documented as of this encounter
--- OUTSIDE RECORDS SUMMARY | 2024-07-12 05:43 | XMS_ITS | Encounter Summary ---
Author Organization [facility] Address [address] [place] [address] Care Team Providers Care Lock Plater Name Role Phone Lane Ring MD Primary Care Provider + Encounter Details Date Type Department Care Team (Late st Contact Info) Description 01/09/2018 Orders Only [facility] Oncology and Hematology - [place] [address] [address] Provider, Abstract NO ADDRESS ON FILE Social History Tobacco Use Types Packs/Day Years [...] Procedure Name Priority Date/Time Associated Diagnosis Comments BUN/CREATININE RATIO Routine 01/06/2018 PROTIME-INR Routine 01/06/2018 documented in this encounter Results * BUN/CREATININE RATIO (01/06/2018) Blood Abstract Provider [facility]STRY [facility]LES [facility] * PROTIME-INR (01/06/2018) Blood Abstract Provider HEMATOLOGY ORDERABLE [facility] documented in this encounter Visit Diagnoses Not on filedocumented in this encounter Care Teams Lock Plater Relationship Specialty Start Date End Date Lane Ring MD [address] [place] [address] PCP - General Internal Medicine 12/17/17 documented as of this encounter
--- OUTSIDE RECORDS SUMMARY | 2024-07-12 05:43 | XMS_ITS | Clinical Summary ---
Author Organization [facility] Address [address] [facility] [place] [address] Care Team Providers Care Salesperson Sewing Machines Name Role Phone Lane Ring MD Primary Care Provider + Allergies Active Allergy Reactions Criticality Noted Date Comments Aminophylline Other (See Comments) Low 12/13/2016 Pt doesn't know Bupropion Hcl Other (See Comments) 02/05/2018 angry Cefuroxime Itching Low Cefuroxime Axetil Nausea and Vomiting Low 7 Pt doesn't know Ciprofloxacin Itching,Nausea and Vomiting Low 12/13/2016 Pt doesn't know Citalopram Nausea and Vomiting,Anxiety Low 12/13/2016 Pt doesn't know Codeine Itching Low 12/13/2016 Erythromycin Itching Low 12/13/2016 Erythromycin Base Itching Low Levofloxacin Itching Low 12/13/2016 Lidocaine Itching Low 12/13/2016 All cande Sulfa (Sulfonamide Antibiotics) Itching Low Sulfamethoxazole-Trimeth oprim Itching Low 12/13/2016 Sulfasalazine Itching Low 12/13/2016 Theophylline Itching Low Trimethoprim Unknown 02/05/2018 Medications Medication Sig Dispensed Refills Start Date End Date Status atorvastatin (LIPITOR) 20 mg tablet atorvastatin 20 mg tablet Take 1 tablet every day by oral route at bedtime. Active insulin glargine (BASAGLAR KWIKPEN U-100 INSULIN) 100 unit/mL pen syringe Inject 80 Units by subcutaneous injection daily at bedtime . 10/02/2016 Active blood sugar diagnostic (FREESTYLE LITE STRIPS) Strip 08/16/2016 Active escitalopram oxalate (LEXAPRO) 10 mg tablet escitalopram 10 mg tablet Active escitalopram oxalate (LEXAPRO) 20 mg tablet Take 20 mg by mouth. 12/13/2016 Ac tive busPIRone (BUSPAR) 15 mg Tablet Take 15 mg by mouth 3 times daily . 09/13/2016 Active QUEtiapine (SEROquel) 100 mg tablet Take 150 mg by mouth daily . 09/15/2016 Active warfarin (COUMADIN) 1 mg tablet warfarin 1 mg tablet Take 2 tablet every day by oral route. Active warfarin (COUMADIN) 2 mg tablet warfarin 2 mg tablet TAKE ONE TABLET BY MOUTH ONCE DAILY AT BEDTIME Active diltiaZEM (DILACOR XR) 120 mg Extended Release capsule diltiazem ER 120 mg capsule,24 hr,extended release TAKE 1 CAPSULE BY MOUTH ONCE DAILY Active digoxin (LANOXIN) 125 mcg tablet digoxin 125 mcg tablet TAKE 1 TABLET BY MOUTH ONCE DAILY Active lisinopril (PRINIVIL) 5 mg tablet lisinopril 5 mg tablet TAKE 1 TABLET BY MOUTH ONCE DAILY Active magnesium oxide (MAG-OX) 400 mg tablet magnesium oxide 400 mg tablet Take 1 tablet twice a day by oral route. Active furosemide (LASIX) 40 mg tablet furosemide 40 mg tablet Take 1 tablet every day by oral route. Active metoprolol succinate (TOPROL XL) 25 mg Extended Release 24 hour tablet metoprolol succinate ER 25 mg tablet,extended release 24 hr 0.5 tab qd Active levothyroxine 125 mcg tablet levothyroxine 125 mcg tablet qd Active lancets (FREESTYLE LANCETS) 28 gauge 09/20/2016 Active insulin lispro (HumaLOG U-100 Insulin) 100 unit/mL vial Humalog U-100 Insulin 100 unit/mL subcutaneous solution Active hydrocortisone (HYTONE) 2.5 % Ointment Apply to affected area 2 times daily as needed . 10/09/2016 Active Insulin [place]rie, Disposable, (NOVOFINE 32) 32 gauge x 1/4 Needle 08/13/2016 Active ondansetron (ZOFRAN) 4 mg Tablet ondansetron HCl 4 mg tablet Active HYDROmorphone (DILAUDID) 2 mg tablet Take 1 Tablet (2 mg) by mouth every 3 hours as needed for Pain Take 1 tab 20 min prior to biopsy. Max Daily Amount: 16 mg 2 Tablet 12/31/2017 Active Active Problems Problem Noted Date Diagnosed Date DM (diabetes mellitus) 12/25/2017 CHF (congestive heart failure) 12/25/2017 HTN (hypertension), benign 12/25/2017 Major depression 12/25/2017 A-fib 12/25/2017 Edema 12/25/2017 Morbid obesity with BMI of 50.0-59.9, adult 11/30 Sleep apnea 12/25/2017 Contraindication to deep vein thrombosis (DVT) p rophylaxis 12/25/2017 Hypercalcemia 12/25/2017 Vitamin D deficiency 12/25/2017 Bipolar 1 disorder 12/25/2017 Hypothyroidism 12/25/2017 Hypomagnesemia 12/25/2017 ARF (acute renal failure) 12/25/[address] lung screening 12/25/2017 Plaque psoriasis 12/25/2017 Right lower lobe lung mass 12/25/2017 Family History Medical History Relation Name Comments Depression Daughter Thyroid Disease Daughter Heart Disease Father Hypertension Father Lung Cancer Maternal Grandfather Colon Cancer Maternal Grandmother Diabetes Maternal Grandmother Osteoporosis Maternal Grandmother Respiratory Disease Maternal Grandmother Stroke Maternal Grandmother Anemia Mother Diabetes Mother Respiratory Disease Mother Asthma Sister Diabetes Sister Hypertension Sister Kidney Disease Sister Melanoma Sister Thyroid Disease Sister ADHD Son Depression Son Relation Name Status Comments Daughter Father Maternal Grandfather Maternal Grandmother Mother Sister Son Social History Tobacco Use [...] Sign Reading Time Taken Comments Blood Pressure 112/68 02/05/2018 10:09 AM CDT Pulse 68 02/05/2018 10:09 AM CDT Temperature 36.4 ??C (97.6 ??F) 01/13/2018 8:59 AM CD T Respiratory Rate 18 02/05/2018 10:09 AM CDT Oxygen Saturation 95% 01/13/2018 8:59 AM CDT Inhaled Oxygen Concentration - - Weight 113.4 kg (250 lb) 02/05/2018 10:09 AM CDT Height 172.7 cm (5' 8 ) 02/05/2018 10:09 AM CDT Body Mass Index 38.01 02/05/2018 10:09 AM CDT Plan of Treatment Health Maintenance Due Date Last Done Comments PNEUMOCOCCAL VACCINE 65+ YEARS (1 of 2 - PCV) 11/13/18 63 DIABETES ANNUAL FOOT EXAM 1974 DIABETES ANNUAL RETINAL EXAM 1974 DIABETES HBA1C Q 6 MONTHS 1974 DIABETES MICROALBUMIN ANNUAL SCREEN 1974 LDL CHOLESTEROL ANNUAL 1974 DTAP/TDAP/TD VACCINES (1 - Tdap) 11/14/1975 BREAST CANCER SCREENING 1996 COLORECTAL SCREENING 2001 Colorectal Cancer Screening 2001 FIT-DNA Q 3 years 2001 FIT/FOBT Q 1 year 2001 Flex Sig/CT Colonography Q 5 years 2001 ZOSTER VACCINE (1 of 2) 2006 RSV VACCINE (60+ or ) (1 - Risk 60-74 years 1-dose series) 2016 OSTEOPOROSIS SCREENING 2021 INFLUENZA VACCINE (#1) 2024 Care Teams Salesperson Sewing Machines Relationship Specialty Start Date End Date Lane Ring MD [address] [place] [address] PCP - General Internal Medicine 12/17/17
--- OUTSIDE RECORDS SUMMARY | 2024-07-12 05:43 | XMS_ITS | Encounter Summary ---
Author Organization [facility] Address [address] [place] [address] Care Team Providers Care Operations And Maintenance Specialist Name Role Phone Lane Ring MD Primary Care Provider + Encounter Details Date Type Department Care Team (Late st Contact Info) Description 01/10/2018 Orders Only [facility] Oncology and Hematology - [place] [address] [address] Provider, Abstract NO ADDRESS ON [...] Procedure Name Priority Date/Time Associated Diagnosis Comments PATHOLOGY Routine 01/06/2018 documented in this encounter Results * PATHOLOGY (01/06/2018) Tissue Abstract Provider [facility] documented in this encounter Visit Diagnoses Not on filedocumented in this encounter Care Teams Operations And Maintenance Specialist Relationship Specialty Start Date End Date Lane Ring MD [address] [place] [address] PCP - General Internal Medicine 12/17/17 documented as of this encounter
--- OUTSIDE RECORDS SUMMARY | 2024-07-12 05:43 | XMS_ITS | Encounter Summary ---
Author Organization [facility] Address [address] [place] [address] Care Team Providers Care Repairer And Checker Name Role Phone Lane Ring MD Primary Care Provider + Encounter Details Date Type Department Care Team (Late st Contact Info) Description 02/05/2018 Orders Only [facility] Oncology and Hematology - [place] [address] [facility] [address] [place] [address] Alberto Akbar MD [address] [facility] [address] [place] [address] Cavitating mass in right lower lung lobe (Primary Dx) Social History Tobacco Use Types [...] as of this encounter Visit Diagnoses Diagnosis Cavitating mass in right lower lung lobe- Primary Other diseases of lung, not elsewhere classified documented in this encounter Care Teams Repairer And Checker Relationship Specialty Start Date End Date Lane Ring MD [address] [place] [address] PCP - General Internal Medicine 12/17/17 documented as of this encounter
--- OUTSIDE RECORDS SUMMARY | 2024-07-12 05:43 | XMS_ITS | Encounter Summary ---
Author Organization [facility] Address [address] [place] [address] Care Team Providers Care Group Leader Wafer Polishing Name Role Phone Lane Ring MD Primary Care Provider + Encounter Details Date Type Department Care Team (Late st Contact Info) Description 01/13/2018 Orders Only [facility] Oncology and Hematology - [place] [address] [facility] [address] [place] [address] Sadaf Mooney RN Right lower lobe lung mass Social History Tobacco Use Types Packs/Day Years [...] Procedure Name Priority Date/Time Associated Diagnosis Comments CT HEAD W WO CONTRAST Routine 01/13/2018 Right lower lobe lung mass CT GUIDED BIOPSY Routine 01/13/2018 Right lower lobe lung mass documented in this encounter Results * CT HEAD W WO CONTRAST (01/13/2018) Anatomical Region Laterality Modality Head Other Alberto Akbar MD CT ORDERABLES * CT GUIDED BIOPSY (01/13/2018) Anatomical Region Laterality Modality Other Alberto Akbar MD CT ORDERABLES documented in this encounter Visit Diagnoses Diagnosis Right lower lobe lung mass Swelling, mass, or lump in chest documented in this encounter Care Teams Group Leader Wafer Polishing Relationship Specialty Start Date End Date Lane Ring MD [address] [place] [address] PCP - General Internal Medicine 12/17/17 documented as of this encounter
--- OUTSIDE RECORDS SUMMARY | 2024-07-12 05:43 | XMS_ITS | Encounter Summary ---
Author Organization [facility] Address [address] [place] [address] Care Team Providers Care Coach Mechanic Name Role Phone Lane Ring MD Primary Care Provider + Reason for Visit * Reason Comments Follow Up Encounter Details Date Type Department Care Team (Late st Contact Info) Description 01/13/2018 9:15 AM CDT Office Visit [facility] Oncology and Hematology - [place] [address] [facility] [address] [place] [address] Alberto Akbar MD [address] [facility] [address] [place] [address] Cavitating mass in right lower [...] Sign Reading Time Taken Comments Blood Pressure 105/68 01/13/2018 8:59 AM CDT Pulse 64 01/13/2018 8:59 AM CDT Temperature 36.4 ??C (97.6 ??F) 01/13/2018 8:59 AM CD T Respiratory Rate 20 01/13/2018 8:59 AM CDT Oxygen Saturation 95% 01/13/2018 8:59 AM CDT Inhaled Oxygen Concentration - - Weight 113.4 kg (250 lb) 01/13/2018 8:59 AM CDT Height 172.7 cm (5' 8 ) 01/13/2018 8:59 AM CDT Body Mass Index 38.01 01/13/2018 8:59 AM CDT documented in this encounter Progress Notes * Alberto Akbar MD - 01/13/2018 9:59 AM CDT HEMATOLOGY / ONCOLOGY PROGRESS NOTE Patient Identification: Name: Carol Gee Age: 62 y.o. Sex: female : 1955 Subjective: HPI This is a 62-year-old obese female who has no personal history of smoking but does have history of secondhand smoking exposure all of her life came into medical attention when she was foundto have hypercalcemia in October 2017 and workup was done including ultrasound of thyroid gland. Thyroid ultrasound done on November 22 showed millimeter left thyroid mass likely benign. On November 25 patient hadCT chest and abdomen done due to hypercalcemia and weight loss that showed right lower lobe mass 0.9 x 1.6 x 3 cm. Due to hypercalcemia bone scan was also done that came back unremarkable. Parathyroid [facility] the scan also came back unremarkable for any adenoma. PET/CT done on December 12 showed prominent uptake with SUV value of 6.8 at the base of the tongue. There was right lower lobe pleural-based mass measures 2.7 cm with SUV of 5.4. Patient has seen in ENT and there wasno evidence of tongue mass found on the examination. Clinically she has lost 60 pounds of weight since May 2017. She does have shortness of breath and dyspnea on exertion. She has been on oxygenintermittently for last 5 years duration. She has complain of tiredness and fatigue. She denies anyhemoptysis. Denies any bone pain but does have psoriatic arthritis. Occasional headaches. Interval History: CT-guided biopsy of the right lung was done on January 06, 2018. Review of system Constitutional: No fever; no night sweats; no anorexia; no weight loss; fatique Respiratory: No shortness of breath; no pleuritic chest pain; no cough; no hemoptysis Cardiac: No cardiac-like chest pain; no palpitations; no orthopnea; no PND; no MAGDALENO GI: No abdominal pain; no nausea; no vomiting; no diarrhea; no hematochezia; no melena Musculosketetal: no bone pain; no arthralgia; no joint swelling; no myalgia; Neuro: No headache; no change in vision; no sensory changes; no muscle weakness; no confusion; no seizures Ext no edema Objective: Vital signs in last 24 hours: As per nursing note Exam: Gen: NAD Lungs: Clear Cardiac: S1 and S2 without murmurs or gallops Abd: Soft, tender, no hepatomegally, no masses Extr: No LE edema Scheduled Meds:@[email or web address]@ Continuous Infusions:@MEDSINFUSIONS@ Data Review: [facility] @IMAGEIMP@ Assessment: Plan: Patient Active Problem List Diagnosis Date Noted ??? DM (diabetes mellitus) 12/25/2017 ??? CHF (congestive heart failure) 12/25/2017 ??? HTN (hypertension), benign 12/25/2017 ??? Major depression 12/25/2017 ??? A-fib 12/25/2017 ??? Edema 12/25/2017 ??? Morbid obesity with BMI of 50.0-59.9, adult 12/25/2017 ??? Sleep apnea 12/25/2017 ??? Contraindication to deep vein thrombosis (DVT) prophylaxis 12/25/2017 ??? Hypercalcemia 12/25/2017 ??? Vitamin D deficiency 12/25/2017 ??? Bipolar 1 disorder 12/25/2017 ??? Hypothyroidism 12/25/2017 ??? Hypomagnesemia 12/25/2017 ??? ARF (acute renal failure) 12/25/2017 ??? Abnormal CT lung screening 12/25/2017 ??? Plaque psoriasis 12/25/2017 ??? Right lower lobe lung mass 12/25/2017 Right lower lobe pleural-based mass measures 2.7 cm with SUV of 5.4 along with increased uptake at the base of the tongue with SUV of 6.8. Patient had ENT examination done on December 18 that showed no evidence of malignancy and masses. Patient has no prior history of smoking but has been exposed to secondhand smoking all her life. Labs done previously showed high calcium level. Patient has lost morethan 60 pound in last 7 months. These findings are quite concerning for malignancy. CT-guided biopsy of right lung attempted on January 06, 2018 came back nondiagnostic due to scant material. CT head came back negative for malignancy. I have discussed this with the patient in detail today. Patient is also allergic to local anesthetics. I have called Dr. Richardson at [facility] regarding discussion for resection of the right lower lobe mass versus biopsy. I'm waiting to hear back from him for further recommendation. ? 01/13/2018 Alberto Akbar MD documented in this encounter Plan of Treatment Not on file documented as of this encounter Visit Diagnoses Diagnosis Cavitating mass in right lower lung lobe- Primary Other diseases of lung, not elsewhere classified documented in this encounter Care Teams Coach Mechanic Relationship Specialty Start Date End Date Lane Ring MD [address] [place] [id number] PCP - General Internal Medicine 12/17/17 documented as of this encounter
--- OUTSIDE RECORDS SUMMARY | 2024-07-12 05:43 | XMS_ITS | Encounter Summary ---
Author Organization [facility] Address [address] [place] [address] Care Team Providers Care Ware Dresser Name Role Phone Lane Ring MD Primary Care Provider + Encounter Details Date Type Department Care Team (Late st Contact Info) Description 12/27/2017 Chart Note [facility] Oncology and Hematology - [place] [address] [facility] [address] [place] [address] Alberto Akbar MD [address] [facility] [address] [place] [address] Social History Tobacco Use Types Packs/Day Years Used Date Smoking Tobacco: Never Smokeless Tobacco: Never Alcohol Use Standard Drinks/Week Comments No 0 (1 standard drink = 0.6 oz pur e alcohol) Sex and Gender Information Value Date Recorded Sex Assigned at Not on file Gender Identity Not on file Sexual Orientation Not on file documented as of this encounter Progress Notes * Kelsea Murphy - 12/27/2017 9:16 AM CDT Patient scheduled for Bx of lung - spoke with Dr. Goddard's office for authorization to discontinue Home Oxygen during procedure Patient advised to stop warfarin on 12/29/2017 - must cease blood thinners 7 days prior documented in this encounter Plan of Treatment Not on file documented as of this encounter Visit Diagnoses Not on filedocumented in this encounter Care Teams Ware Dresser Relationship Specialty Start Date End Date Lane Ring MD [address] [place] [address] PCP - General Internal Medicine 12/17/17 documented as of this encounter
--- OUTSIDE RECORDS SUMMARY | 2024-07-12 05:43 | XMS_ITS | Encounter Summary ---
Author Organization [facility] Address [address] [place] [address] Care Team Providers Care Cylinder Handler Name Role Phone Lane Ring MD Primary Care Provider + Reason for Referral * Eval and Treat (Routine) - Closed Specialty Diagnoses / Procedures Referred By Contac t Referred To Contact Diagnoses Cavitating mass in right lower lung lobe Alberto Akbar MD [address] [address] Referral ID Status Reason Start Date Expiration Date Visits Requested Visits Authorized [id number] Closed CRS To Schedule (STL) Ordering Department To Schedule 01/15/2018 01/15/2019 1 1 Encounter Details Date Type Department Care Team (Late st Contact Info) Description 01/15/2018 Orders Only [facility] Oncology and Hematology - [place] [address] [place] [address] [address] [place] [address] Alberto Akbar MD [address] [place] [address] Cavitating mass in right lower [...] as of this encounter Plan of Treatment Scheduled Referrals Name Type Priority Associated Diagnoses Order Schedule AMB REFERRAL TO CARDIOTHORACIC SURGEON Outpatient Referral Routine Cavitating mass in right lower lung lobe Ordered: 01/15/2018 documented as of this encounter Visit Diagnoses Diagnosis Cavitating mass in right lower lung lobe- Primary Other diseases of lung, not elsewhere classified documented in this encounter Care Teams Cylinder Handler Relationship Specialty Start Date End Date Lane Ring MD [address] [place] [address] PCP - General Internal Medicine 12/17/17 documented as of this encounter
--- OUTSIDE RECORDS SUMMARY | 2024-07-12 05:43 | XMS_ITS | Encounter Summary ---
Author Organization [facility] Address [address] [place] [address] Care Team Providers Care Tank Truck Driver Name Role Phone Lane Ring MD Primary Care Provider + Reason for Visit * Reason Onset Date Comments Medication Review 12/31/2017 Encounter Details Date Type Department Care Team (Late st Contact Info) Description 12/31/2017 Telephone [facility] Oncology and Hematology - [place] [address] [place] [address] [address] Alberto Akbar MD [address] [facility] [address] [place] [address] Medication Review Social History Tobacco Use Types Packs/Day Years [...] Telephone Encounter - Sadaf Mooney RN - 12/31/2017 5:09 PM CDT Pt called in to request Valium for lung biopsy. Reviewed with Dr. Akbar who ordered Dilaudid, pt also instructed to take Benadryl #2 25 mg tabs. Pt advised to wait to be instructed to take after signing permit 20 min prior to procedure. Sadaf Mooney RN documented in this encounter Plan of Treatment Not on file documented as of this encounter Visit Diagnoses Not on filedocumented in this encounter Care Teams Tank Truck Driver Relationship Specialty Start Date End Date Lane Ring MD [address] [place] [id number] PCP - General Internal Medicine 12/17/17 documented as of this encounter
--- OUTSIDE RECORDS SUMMARY | 2024-07-12 05:43 | XMS_ITS | Encounter Summary ---
Author Organization [facility] Address [address] [place] [address] Care Team Providers Care Bacon De Rinder Name Role Phone Lane Ring MD Primary Care Provider + Reason for Referral * Outpatient Services (Routine) - Closed Specialty Diagnoses / Procedures Referred By Contac t Referred To Contact Diagnoses Right lower lobe lung mass Procedures CT HEAD W WO CONTRAST Alberto Akbar MD [address] [facility] [address] [address] Referral ID Status Reason Start Date Expiration Date Visits Requested Visits Authorized [id number] Closed Ordering Department To Schedule 12/30/2017 04/01/2018 1 1 * Outpatient Services (Routine) - Closed Specialty Diagnoses / Procedures Referred By Contac t Referred To Contact Diagnoses Right lower lobe lung mass Procedures CT GUIDED BIOPSY Alberto Akbar MD [address] [address] [address] [address] Referral ID Status Reason Start Date Expiration Date Visits Requested Visits Authorized [id number] Closed Ordering Department To Schedule 12/30/2017 04/01/2018 1 1 Reason for Visit * Reason Comments Follow Up lung ca Encounter Details Date Type Department Care Team (Late st Contact Info) Description 12/25/2017 2:00 PM CDT Office Visit [facility] - [place] [address] [facility] [address] [place] [address] Alberto Akbar MD [address] [facility] [address] [place] [address] Diabetes mellitus of other type with complication, unspecified whether correction insulin use; Congestive heart failure, unspecified HF chronicity, unspecified heart failure type; HTN (hypertension), benign; Episode of recurrent major depressive disorder, unspecified depression episode severity; Atrial fibrillation, unspecified type; Edema, unspecified type; Morbid obesity with BMI of 50.0-59.9, adult; Sleep apnea, unspecified type; Contraindication to deep vein thrombosis (DVT) prophylaxis; Hypercalcemia; Vitamin D deficiency; Bipolar 1 disorder; Hypothyroidism, unspecified type; Hypomagnesemia; Acute renal failure, unspecified acute renal failure type; Abnormal CT lung screening; Plaque psoriasis; Right lower lobe lung mass Social History [...] Sign Reading Time Taken Comments Blood Pressure 148/85 12/25/2017 2:17 PM CDT Pulse 75 12/25/2017 2:17 PM CDT Temperature 36.9 ??C (98.5 ??F) 12/25/2017 2:17 PM CD T Respiratory Rate 18 12/25/2017 2:17 PM CDT Oxygen Saturation - - Inhaled Oxygen Concentration - - Weight 111.6 kg (246 lb) 12/25/2017 2:17 PM CDT Height 172.7 cm (5' 8 ) 12/25/2017 2:17 PM CDT Body Mass Index 37.4 12/25/2017 2:17 PM CDT documented in this encounter Progress Notes * Alberto Akbar MD - 12/25/2017 3:03 PM CDT Hematology-oncology consult Note Requesting Physician Lane Ring MD Primary Care Physician Lane Ring MD Problem list Patient Active Problem List Diagnosis Code ??? DM (diabetes mellitus) E11.9 ??? CHF (congestive heart failure) I50.9 ??? HTN (hypertension), benign I10 ??? Major depression F32.9 ??? A-fib I48.91 ??? Edema R60.9 ??? Morbid obesity with BMI of 50.0-59.9, adult E66.01, Z68.43 ??? Sleep apnea G47.30 ??? Contraindication to deep vein thrombosis (DVT) prophylaxis Z53.09 ??? Hypercalcemia E83.52 ??? Vitamin D deficiency E55.9 ??? Bipolar 1 disorder F31.9 ??? Hypothyroidism E03.9 ??? Hypomagnesemia E83.42 ??? ARF (acute renal failure) N17.9 ??? Abnormal CT lung screening R91.8 ??? Plaque psoriasis L40.0 ??? Right lower lobe lung mass R91.8 Previous TREATMENT ? Measurable Disease ? Reason for Visit Carol Gee is a 62 y.o. female who was referred for consultation for Lung mass. History of present illness This is a 62-year-old obese female who [...] also done that came back unremarkable. Parathyroid [facility] the scan also came back unremarkable [...] but does have psoriatic arthritis. Occasional headaches. Past Medical History Past Medical History: Diagnosis Date ??? Anxiety ??? Arthritis ??? Atrial fibrillation ??? CHF (congestive heart failure) ??? COPD (chronic obstructive pulmonary disease) ??? CRI (chronic renal insufficiency) ??? Depression ??? Diabetes mellitus ??? Headache ??? HTN (hypertension) ??? Hypothyroidism ??? IBS (irritable bowel syndrome) ??? Kidney calculus ??? Osteoporosis ??? Psychosis ??? Thromboembolism Surgical History Past Surgical History: Procedure Laterality Date ??? HX CHOLECYSTECTOMY ??? HX HERNIA REPAIR ??? HX HYSTERECTOMY ??? HX TUBAL LIGATION Medications Current Outpatient Prescriptions Medication Sig Dispense Refill ??? atorvastatin (LIPITOR) 20 mg tablet atorvastatin 20 mg tablet Take 1 tablet every day by oral route at bedtime. ??? insulin glargine (BASAGLAR KWIKPEN U-100 INSULIN) 100 unit/mL pen syringe 80 Units. ??? blood sugar diagnostic (FREESTYLE LITE STRIPS) Strip ??? escitalopram oxalate (LEXAPRO) 10 mg tablet escitalopram 10 mg tablet ??? escitalopram oxalate (LEXAPRO) 20 mg tablet Take 20 mg by mouth. ??? busPIRone (BUSPAR) 15 mg Tablet 15 mg. ??? QUEtiapine (SEROquel) 100 mg tablet 150 mg. ??? warfarin (COUMADIN) 1 mg tablet warfarin 1 mg tablet Take 1 tablet every day by oral route. ??? warfarin (COUMADIN) 2 mg tablet warfarin 2 mg tablet TAKE ONE TABLET BY MOUTH ONCE DAILY AT BEDTIME ??? diltiaZEM (DILACOR XR) 120 mg Extended Release capsule diltiazem ER 120 mg capsule,24 hr,extended release TAKE 1 CAPSULE BY MOUTH ONCE DAILY ??? digoxin (LANOXIN) 125 mcg tablet digoxin 125 mcg tablet TAKE 1 TABLET BY MOUTH ONCE DAILY ??? lisinopril (PRINIVIL) 5 mg tablet lisinopril 5 mg tablet TAKE 1 TABLET BY MOUTH ONCE DAILY ??? magnesium oxide (MAG-OX) 400 mg tablet magnesium oxide 400 mg tablet Take 1 tablet twice a day by oral route. ??? furosemide (LASIX) 40 mg tablet furosemide 40 mg tablet Take 1 tablet every day by oral route. ??? metoprolol succinate (TOPROL XL) 25 mg Extended Release 24 hour tablet metoprolol succinate ER 25 mg tablet,extended release 24 hr 0.5 tab qd ??? levothyroxine 125 mcg tablet levothyroxine 125 mcg tablet qd ??? lancets (FREESTYLE LANCETS) 28 gauge ??? insulin lispro (HumaLOG U-100 Insulin) 100 unit/mL vial Humalog U-100 Insulin 100 unit/mL subcutaneous solution ??? hydrocortisone (HYTONE) 2.5 % Ointment ??? Insulin [place], Disposable, (NOVOFINE 32) 32 gauge x 1/4 Needle ??? ondansetron (ZOFRAN) 4 mg Tablet ondansetron HCl 4 mg tablet No current facility-administered medications for this visit. Allergies Allergies Allergen Reactions ??? Cefuroxime Itching ??? Erythromycin Base Itching ??? Sulfa (Sulfonamide Antibiotics) Itching ??? Theophylline Itching ??? Aminophylline Other (See Comments) Pt doesn't know ??? Cefuroxime Axetil Nausea and Vomiting Pt doesn't know ??? Ciprofloxacin Itching and Nausea and Vomiting Pt doesn't know ??? Citalopram Nausea and Vomiting and Itching Pt doesn't know ??? Codeine Itching ??? Erythromycin Itching ??? Levofloxacin Itching ??? Lidocaine Itching All cande ??? Sulfamethoxazole-Trimethoprim Itching ??? Sulfasalazine Itching Immunizations: There is no immunization history on file for this patient. Family History Family History Problem Relation Age of Onset ??? Heart Disease Father ??? Hypertension Father ??? Diabetes Mother ??? Respiratory Disease Mother ??? Anemia Mother ??? Diabetes Sister ??? Hypertension Sister ??? Melanoma Sister ??? Asthma Sister ??? Kidney Disease Sister ??? Thyroid Disease Sister ??? Diabetes Maternal Grandmother ??? Stroke Maternal Grandmother ??? Colon Cancer Maternal Grandmother ??? Osteoporosis Maternal Grandmother ??? Respiratory Disease Maternal Grandmother ??? Lung Cancer Maternal Grandfather ??? Thyroid Disease Daughter ??? Depression Daughter ??? Depression Son ??? ADHD Son Social History Social History Substance Use Topics ??? Smoking status: Never Smoker ??? Smokeless tobacco: Never Used ??? Alcohol use No Review of Systems Constitutional: No fever; no night sweats; no anorexia;60 pound weight loss and 7 months, complain of tiredness and fatigue NEENT: No headache; no change in vision; no change in hearing; no sore throat; no dysphagia Respiratory: shortness of breath; no pleuritic chest pain; no cough; no hemoptysis Cardiac: No cardiac-like chest pain; no palpitations; no orthopnea; no PND; MAGDALENO Breasts: No tenderness; no masses GI: No abdominal pain; no nausea; no vomiting; no diarrhea; no hematochezia; no melena : No dysuria; no frequency; no hesitancy; no hematuria COOK MESS: Musculosketetal: no bone pain; arthralgia; no joint swelling; no myalgia; Skin: no pruritis; no rash; no petechiae; no ecchymoses Endocrine: no polydipsia; no polyuria; no unusual weight gain Neuro: No headache; no change in vision; no sensory changes; no muscle weakness; no confusion; no seizures Psych: no anxiety; no depression; Physical Exam Vitals: As per nursing note Constitutional: Well developed, well nourished, no acute distress, non-toxic appearance Teeth and gum. No signs of infection or swelling. Eyes: PERRL, conjunctiva normal HEENT: Atraumatic, external ears normal, nose normal, oropharynx moist, no pharyngeal exudates. no sinus tenderness Neck- normal range of motion, no tenderness, supple Respiratory: No respiratory distress, normal breath sounds, no rales, no wheezing Cardiovascular: Normal rate, normal rhythm, no murmurs, no gallops, no rubs GI: Soft, nondistended, normal bowel sounds, nontender, no splenomegaly, no hepatomegaly, no mass, no rebound, no guarding : No costovertebral angle tenderness Musculoskeletal: No edema, no tenderness, no deformities. Back- no tenderness Integument: Psoriasis involving forehead, midchest upper extremities and lower extremity Digits and nails inspection normal Lymphatic: No lymphadenopathy noted Neurologic: Alert & oriented x 3, CN 2-12 normal, normal motor function, normal sensory function, no focal deficits noted Psychiatric: Speech and behavior appropriate ? labs No results found for this or any previous visit (from the past 24 hour(s)). Pathology ? Imaging & Other Studies Performance Status? Assessment / Plan: Right lower lobe pleural-based mass measures 2.7 [...] These findings are quite concerning for malignancy. I plan to ordera CT-guided biopsy of the right lower lobe lung mass. I will also order CT scan of the head due to patient's intermittent headaches. Bony scan done in October 2017 showed no evidence of malignancy. Patient will be back to see me after the biopsy for the recommendation for likely malignancy. I have answered all the questions to patient and the family satisfaction. Thank you very much for allowing me to participate in Carol Gee's evaluation and management. Please feel free to contact if I can be of any further assistance in your patient???s care requiring hematology or oncology evaluation. Sincerely, ? ? Alberto Akbar M.D. cell ? Alberto Akbar MD ,12/25/2017 3:03 PM ? Total time spent 80 minutes, two third of the total time spent counseling patient [id number]. CC:Lane Ring MD? documented in this encounter Miscellaneous Notes * Addendum Note - Alberto Akbar MD - 12/25/2017 2:00 PM CDTAddended by: ALBERTO AKBAR on: 12/25/2017 03:14 PM Modules accepted: Orders documented in this encounter Plan of Treatment Not on file documented as of this encounter Results * CT HEAD W WO CONTRAST (01/13/2018) Anatomical Region Laterality Modality Head Other Alberto Akbar MD CT ORDERABLES * CT GUIDED BIOPSY (01/13/2018) Anatomical Region Laterality Modality Other Alberto Akbar MD CT ORDERABLES documented in this encounter Visit Diagnoses Diagnosis Diabetes mellitus of other type with complication, unspecified whether correction insulin use Congestive heart failure, unspecified HF chronicity, unspecified heart failure type HTN (hypertension), benign Essential hypertension, benign Episode of recurrent major depressive disorder, unspecified depression episode severity Atrial fibrillation, unspecified type Edema, unspecified type Morbid obesity with BMI of 50.0-59.9, adult Sleep apnea, unspecified type Contraindication to deep vein thrombosis (DVT) prophylaxis Hypercalcemia Vitamin D deficiency Unspecified vitamin D deficiency Bipolar 1 disorder Bipolar I disorder, most recent episode (or current) unspecified Hypothyroidism, unspecified type Hypomagnesemia Disorders of magnesium metabolism Acute renal failure, unspecified acute renal failure type Abnormal CT lung screening Nonspecific (abnormal) findings on radiological and other examination of other intrathoracic organs Plaque psoriasis Other psoriasis Right lower lobe lung mass Swelling, mass, or lump in chest documented in this encounter Care Teams Bacon De Rinder Relationship Specialty Start Date End Date Lane Ring MD [address] [place] [address] PCP - General Internal Medicine 12/17/17 documented as of this encounter
--- OUTSIDE RECORDS SUMMARY | 2024-07-12 05:43 | XMS_ITS ---
Author Organization [facility] Address [address] [place] [address] Care Team Providers Care Digital Content Producer Name Role Phone Fannie Campuzano Primary Care Provider REASON FOR VISIT message Medications Medication SIG (Take, Route, Fr equency, Duration) Notes Start Date End Date Status busPIRone HCl 30 MG 1 tablet Orally Twic e a day for 30 days Active Social History Sex Assigned At : Social History Observation Description Sex Assigned At Female Encounters Encounter Location Date Provider Diagnosis [address] [address] 03/27/2024 Fannie Campuzano Schizoaffective diso rder F25.9 Assessments Encounter Date Diagnosis (ICD Code) Assessment Notes Treatment Notes Treatment Clinical Notes Section Notes 03/27/2024 Schizoaffective disorder (ICD-10 - F25.9) Plan Of Treatment Medication Medication Name Sig Start Date Stop Date Notes busPIRone HCl 30 MG 1 tablet Orally Twic e a day for 30 days Progress Notes * Hermila GEEsDOB:1955 (68 yo F)Acc No.[id number]:03/27/2024 Patient:?Carol GEE :1955???Age:68 Y???Sex:Female Address:[address] [place] [address], [address], [place], [address] * Refills? Refill busPIRone HCl Tablet, 30 MG, Orally, 60 Tablet, 1 tablet, Twice a day, 30 days, Refills=1 * true * Date:? 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
--- OUTSIDE RECORDS SUMMARY | 2024-07-12 05:43 | XMS_ITS | Encounter Summary ---
Author Organization [facility] Address [address] [place] [address] Care Team Providers Care Saddle Cutter Name Role Phone Lane Ring MD Primary Care Provider + Reason for Visit * Reason Comments Surgical Consult Encounter Details Date Type Department Care Team (Late st Contact Info) Description 02/05/2018 10:00 AM CDT Office Visit [facility] Cardiovas and Thor Surg at [facility] [address] [id number] [place] [address] Brandon Coy MD [address] [facility] [address] [place] [address] Pulmonary nodule (Primary Dx) Social History Tobacco Use Types [...] Pulse 68 02/05/2018 10:09 AM CDT Temperature - - Respiratory Rate 18 02/05/2018 10:09 AM CDT Oxygen Saturation - - Inhaled Oxygen Concentration - - Weight 113.4 kg (250 lb) 02/05/2018 10:09 AM CDT Height 172.7 cm (5' 8 ) 02/05/2018 10:09 AM CDT Body Mass Index 38.01 02/05/2018 10:09 AM CDT documented in this encounter Progress Notes * Brandon Coy MD - 02/05/2018 10:30 AM CDT CTS History and Physical PRIMARY CARE PHYSICIAN: Lane Ring MD Carol Gee is an 62 y.o. female who was referred by Dr Akbar for evaluation of 2.7 cm RLL lung nodule. She has PMH of DM2, hypothyroidism, CHF, hypercalcemia, CRI, HTN, AFIB and depression. She isaccompanied by her ex- and daughter in clinic today. Ms Gee stated that she was called by her PCP in October and advised to present to the ER for evaluation as blood work returned, noting that she had hypercalcemia. The patient stated that she was admitted to an OSH and had a very detailed work up. During her hospitalization, chest CT was administered and identified RLL 2.7 cm nodule. The patient was treated for hypercalcemia and released with recommendation to monitor the 2.7 cm RLL nodule. The patient stated that she followed up with Dr Ring after hospital discharge. At that time, Dr Ring recommended that she move forward with PET scan. On 12/12/17, PET was administered and revealedthe 2.7 cm RLL nodule with SUV of 5.4. It also revealed FDG updake in the tongue with SUV of 6.8. Ms Gee was referred to ENT to have her tongue evaluated. This was done on 12/18/17 and no abnormaliti es were identified. Ms. Gee had needle biopsy on 01/06/18 which unfortunately, non-conclusive. She notes that she has experienced unexplained weight loss of 60 lbs, fatigue, decrease appetite, SOB and chest discomfort. CT Scan Results (11/25/17): 1. New right lower lobe medial airspace disease measuring 0.9 x 1.6 x 3.0 cm , differential diagnosis including atelectasis, cryptogenic organizing pneumonia, pneumonia, cancer. Location would make biopsy challenging. Clinical correlation, consider PET CT or three month follow up chest CT. 2. Stable ascending aortic aneurysm. 3. Left UPJ, left calyceal stones, no hydronephrosis. 4. Midline supraumbilical abdominal wall dehiscence 5. Cholecystectomy PET Scan Results (12/12/17): 1. Prominent abnormal FDG uptake in the tongue anteriorly with maximum SUV value of 6.8, concerningfor tongue cancer. 2. Abnormal right lower lobe pleural based mass medially measuring up to 2.7 cm greatest dimension. SUV is 5.4. This could represent primary bronchogenic carcinoma or metastatic disease Past Medical History Patient does have a history of DM that is treated with diet control and oral hypoglycemic agents. Body mass index is 38.01 kg/m??.: Patient is Moderately Obese with BMI 35-39.9 Past Medical History: Diagnosis Date ??? Anxiety ??? Arthritis ??? Atrial fibrillation ??? CHF (congestive heart failure) ??? COPD (chronic obstructive pulmonary disease) ??? CRI (chronic renal insufficiency) ??? Depression ??? Diabetes mellitus ??? Headache ??? HTN (hypertension) ??? Hypothyroidism ??? IBS (irritable bowel syndrome) ??? Kidney calculus ??? Osteoporosis ??? Psychosis ??? Thromboembolism Past Surgical History Past Surgical History: Procedure Laterality [...] by subcutaneous injection daily at bedtime . ??? escitalopram oxalate (LEXAPRO) 10 mg tablet escitalopram 10 mg tablet ??? escitalopram oxalate (LEXAPRO) 20 mg tablet Take 20 mg by mouth. ??? busPIRone (BUSPAR) 15 mg Tablet Take 15 mg by mouth 3 times daily . ??? QUEtiapine (SEROquel) 100 mg tablet Take 150 mg by mouth daily . ??? warfarin (COUMADIN) 2 mg tablet warfarin [...] U-100 Insulin 100 unit/mL subcutaneous solution ??? Insulin [place], Disposable, (NOVOFINE 32) 32 gauge x 1/4 Needle ??? HYDROmorphone (DILAUDID) 2 mg tablet Take 1 Tablet (2 mg) by mouth every 3 hours as needed for Pain Take 1 tab 20 min prior to biopsy. Max Daily Amount: 16 mg 2 Tablet 0 ??? blood sugar diagnostic (FREESTYLE LITE STRIPS) Strip ??? warfarin (COUMADIN) 1 mg tablet warfarin 1 mg tablet Take 2 tablet every day by oral route. ??? hydrocortisone (HYTONE) 2.5 % Ointment Apply to affected area 2 times daily as needed . ??? ondansetron (ZOFRAN) 4 mg Tablet ondansetron HCl 4 mg tablet No current facility-administered medications for this visit. Allergies Allergies Allergen Reactions ??? Cefuroxime Itching ??? Erythromycin Base Itching ??? Sulfa (Sulfonamide Antibiotics) Itching ??? Theophylline Itching ??? Trimethoprim Unknown ??? Wellbutrin [Bupropion Hcl] Other (See Comments) angry ??? Aminophylline Other (See Comments) Pt doesn't know ??? Cefuroxime Axetil Nausea and Vomiting Pt doesn't know ??? Ciprofloxacin Itching and Nausea and Vomiting Pt doesn't know ??? Citalopram Nausea and Vomiting and Anxiety Pt doesn't know ??? Codeine Itching ??? Erythromycin Itching ??? Levofloxacin Itching ??? Lidocaine Itching All cande ??? Sulfamethoxazole-Trimethoprim Itching ??? Sulfasalazine Itching Pt does not have a latex allergy Pt does have a history of ALIVIA Pt does not have a history of ID requiring isolation Family History Family History Problem Relation Age [...] ??? ADHD Son Social History Social History Social History ??? Marital status: Spouse name: N/A ??? Number of children: N/A ??? Years of education: N/A Occupational History ??? Not on file. Social History Main Topics ??? Smoking status: Never Smoker ??? Smokeless tobacco: Never Used ??? Alcohol use No ??? Drug use: No ??? Sexual activity: No Other Topics Concern ??? Not on file Social History Narrative ??? No narrative on file Review of Systems General ROS: positive for - fatigue and weight loss ENT ROS: negative for nasal congestion, drainage or bleeding, sore throat, dysphagia or ear pain Carol Gee does not have a personal history of reactions to general anesthesia or bleeding disorders. Respiratory ROS: positive for - cough, dyspnea on exertion, fatigue and shortness of breath Gastrointestinal ROS: negative for reflux, abdominal pain, change in bowel habits, or black or bloody stools Genito-Urinary ROS: negative for dysuria, trouble voiding, or hematuria Musculoskeletal ROS: negative for back pain, neck pain or joint pain or swelling Neurological ROS: negative for TIA or stroke symptoms Dermatological ROS: negative for skin rashes or unusual skin lesions Endocrine ROS: negative for polyuria/polydipsia or new changes in weight Psychological ROS: positive for - anxiety Objective: Vitals: 02/05/18 1009 BP: 112/68 Pulse: 68 Resp: 18 /Last documented weight: Weight: 113.4 kg (250 lb) (08/08/18 1009)/Body mass index is 38.01 kg/m??. Ht Readings from Last 1 Encounters: 02/05/18 5' 8 (1.727 m) General appearance: alert, in no distress Head: atraumatic, Normocephalic, without obvious abnormality Eyes: conjunctivae/corneas clear. PERRL, EOM's intact. Throat: Lips, mucosa (moist), and tongue normal. Teeth and gums normal Neck: supple, symmetrical, trachea midline, no adenopathy and no JVD Back: symmetric, no curvature. ROM normal. No CVA tenderness. Lungs: clear to auscultation bilaterally, normal respiratory effort, breath sounds equal, no retractions, no stridor Chest wall: no tenderness Heart: irregularly irregular rhythm with rate 70 Abdomen: Soft, non-tender. Bowel sounds normal. No masses, no organomegaly. Extremities: extremities normal, atraumatic, no cyanosis or edema Pulses: 2+ and symmetric Musculoskeletal: no joint tenderness, deformity or swelling Skin: Skin color, texture, turgor normal. No rashes or lesions Neurologic: Alert and oriented X 3, normal strength and tone. Normal symmetric reflexes. Normal coordination and gait Labs No results found for: WBC, MANUALWBC, HGB, HGBPOC, HCT, HCTPOC, PLT, MCV No results found for: NA, K, CL, CO2, CA, BUN, CREAT, GLUCOSE, ANIONGAP, BCRATIO Assessment: Pt here to discuss lung resection The lesion is in a difficult spot for biopsy. Had a non diagnostic CT guided biopsy. Lesion is new compared to previous images and has an uptake on pet scan. Patient is concerned and wants surgical resection. Past Medical History: Diagnosis Date ??? Anxiety ??? Arthritis ??? Atrial fibrillation ??? CHF (congestive heart failure) ??? COPD (chronic obstructive pulmonary disease) ??? CRI (chronic renal insufficiency) ??? Depression ??? Diabetes mellitus ??? Headache ??? HTN (hypertension) ??? Hypothyroidism ??? IBS (irritable bowel syndrome) ??? Kidney calculus ??? Osteoporosis ??? Psychosis ??? Thromboembolism Past Surgical History: Procedure Laterality Date ??? HX CHOLECYSTECTOMY ??? HX HERNIA REPAIR ??? HX HYSTERECTOMY ??? HX TUBAL LIGATION Plan: I recommended proceeding robotic right pedro/chest mass Resection. Possible need for thoracotomy possible difficulty identifying and resecting the lesion given the location was discussed with the patient. Patient wants to proceed. Patient was given all risks, alternatives, and benefits. Questions were answered. The patient wishes to proceed with surgery. This has been scheduled for 03/06/18. Patient will be scheduled for prequal and instructions were given. Will check preop labs. I have reviewed this encounter and agree with the assessment and plan. Brandon Coy MD 11:38 PM 02/14/2018 documented in this encounter Plan of Treatment Not on file documented as of this encounter Visit Diagnoses Diagnosis Pulmonary nodule- Primary Solitary pulmonary nodule documented in this encounter Care Teams Saddle Cutter Relationship Specialty Start Date End Date Lane Ring MD [address] [place] [address] PCP - General Internal Medicine 12/17/17 documented as of this encounter
--- OUTSIDE RECORDS SUMMARY | 2024-07-12 05:43 | XMS_ITS | Encounter Summary ---
Author Organization [facility] Address [address] [place] [address] Care Team Providers Care Cdl B Driver Name Role Phone Lane Ring MD Primary Care Provider + Reason for Visit * Reason Onset Date Comments Medication Review 01/08/2018 Encounter Details Date Type Department Care Team (Late st Contact Info) Description 01/08/2018 Telephone [facility] Oncology and Hematology - [place] [address] [place] [address] [address] Alberto Akbar MD [address] [facility] [facility] [address] [place] [address] Medication Review Social History Tobacco [...] Telephone Encounter - Sadaf Mooney RN - 01/08/2018 8:45 AM CDT Spoke to pt 7 prior to biopsy scheduled at 0900. Received call from Dr. Goddard's office, who does not want pt to have sedation. Dr. Akbar had ordered hydromorphone and Benadryl. Pt will try to just take benadryl, explained that if O2 sat drops during procedure and she needs O2, procedure willhave to be cancelled, pt states understanding. Last week, Dr. Sanchez office contacted and ok for pt to stop warfarin per Dr. Sanhcez partner, was advised they would fax. Sadaf Mooney RN documented in this encounter Plan of Treatment Not on file documented as of this encounter Visit Diagnoses Not on filedocumented in this encounter Care Teams Cdl B Driver Relationship Specialty Start Date End Date Lane Ring MD [address] [place] [id number] PCP - General Internal Medicine 12/17/17 documented as of this encounter
[2024-07-12 07:03] LABS: Basophils Percent Auto 0.3 % (0.2-1.2); Eosinophils Absolute Auto 0.2 K/mm3 (0-0.3); Eosinophils Percent Auto 1.7 % (0-4.4); Hematocrit 31.4 % (37.0-47.0); Hemoglobin 9.8 g/dL (12.0-15.0); Immature Granulocyte Absolute 0.33 K/mm3 (0.00-0.031); Immature Granulocyte Percent A 2.8 % (0-0.5); Lymphocytes Absolute Auto 2.29 K/mm3 (0.9-3.2); Lymphocytes Percent Auto 19.4 % (18.3-44.2); Mean Corpuscular HGB Conc 31.2 g/dl (32-36); Mean Corpuscular Hemoglobin 23.9 pg (26-34); Mean Corpuscular Volume 76.6 fl (80-100); Mean Platelet Volume 10.5 fl (7.4-10.4); Monocytes Absolute Auto 0.8 K/mm3 (0.1-0.6); Monocytes Percent Auto 6.7 % (2.6-8.5); Neutrophils Absolute Auto 8.2 K/mm3 (1.3-6.7); Neutrophils Percent Auto 69.1 % (45.5-73.1); Platelet Count Result 168 k/mm3 (150-375); Red Cell Distribution Width 17.9 % (11.5-14.5); White Blood Count 11.8 K/mm3 (4.5-10.0)
[2024-07-12 07:14] LABS: Alanine Aminotransferase 12 U/L (6-35); Albumin Level 2.6 g/dL (3.5-5.1); Alkaline Phosphatase 90 U/L (38-126); Anion Gap 1 mmol/L (4-12); Aspartate Amino Transferase 16 U/L (14-36); Bilirubin,Total 0.8 mg/dL (0.2-1.3); Blood Urea Nitrogen 15 mg/dL (7-17); Calcium 9.2 mg/dL (8.4-10.2); Carbon Dioxide 37 mmol/L (22-30); Chloride 97 mmol/L (98-107); Estimated CRCL calculation 73 ml/min; Estimated Glomerular Filt Rate > 60; Glucose 140 mg/dL (65-110); Magnesium 1.7 mg/dL (1.6-2.3); Potassium 3.8 mmol/L (3.4-5.0); Sodium 135 mmol/L (137-145)
[2024-07-12 07:48] LABS: Glucose Point of Care 168 mg/dl (65-105)
[2024-07-12 10:00] VITALS: O2SAT 100
[2024-07-12] MEDS: PANTOPRAZOLE SODIUM IV 40 MG VIAL IV PUSH (10:02)
[2024-07-12] MEDS: INSULIN ASPART (*BKC) 100 UNITS/ML SUB-Q ×3 (10:03→17:57)
[2024-07-12] MEDS: dilTIAZem HCL CD 120 MG CAP.24HR PO (10:04)
[2024-07-12 10:05] VITALS: PULSE 78
[2024-07-12] MEDS: MAGNESIUM OXIDE 400 MG TABLET 800 MG PO (10:05)
[2024-07-12] MEDS: ESCITALOPRAM OXALATE 10 MG TABLET 20 MG PO (10:05)
[2024-07-12] MEDS: CHOLECALCIFEROL 1,000 UNITS TABLET 2000 UNITS PO (10:05)
[2024-07-12] MEDS: METOPROLOL SUCCINATE EXT REL 25 MG TABCR PO (10:05)
[2024-07-12] MEDS: ASPIRIN 81 MG ENTERIC TABLET PO (10:06)
[2024-07-12] MEDS: POTASSIUM CHLORIDE 20 MEQ PACKET (FOR LIQUID) PO (10:06)
[2024-07-12] MEDS: APIXABAN 5 MG TABLET PO ×2 (10:06→21:08)
[2024-07-12 11:16] LABS: Glucose Point of Care 185 mg/dl (65-105)
--- NOTE | 2024-07-12 12:05 | PM.IMPN ---
Progress Note: A&P Assessment and Plan (1) Severe sepsis: Code(s): A41.9 - Sepsis, unspecified organism; R65.20 - Severe sepsis without septic shock Status: Acute (2) Acute pyelonephritis: Code(s): N10 - Acute pyelonephritis Status: Acute (3) Hydronephrosis due to obstruction of ureter: Code(s): N13.1 - Hydronephrosis with ureteral stricture, not elsewhere classified Status: Acute (4) Atrial fibrillation: Qualifiers: Atrial fibrillation type: unspecified chronic Qualified Code(s): I48.20 - Chronic atrial fibrillation, unspecified Code(s): I48.91 - Unspecified atrial fibrillation Status: Chronic (5) AMS (altered mental status): Code(s): R41.82 - Altered mental status, unspecified Status: Acute (6) Type 2 diabetes mellitus: Code(s): E11.9 - Type 2 diabetes mellitus without complications Status: Chronic Plan # Severe sepsis: Delete 07/05: Patient presented from half-way, with lethargy, generalized weakness, altered mental status, was found to have left ureteral stone with hydronephrosis, status post cystoscopy, retrograde pyelogram with stent placement to left proximal ureter. CTA Ch/A/P showing left-sided hydroureteronephrosis secondary to a 9 mm stone in the proximal to mid left ureter. No PE or aortic dissection. 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 Urology consulted and patient underwent cystoscopy, left retrograde pyelogram, left ureteral stent placement 07/05/24. Purulent drainage was seen once the stent was placed. Patient was given adequate amount of IV fluids, Lactic acid was initially elevated which has normalized -patient has not required any pressors at this time as blood pressures have been stable MRSA nasal swab negative. BCx 07/05: e coli Patient was on linezolid and Zosyn, (07/05); discontinue linezolid and started vancomycin 07/06 Creatinine trending down. WBC normal. Old Cx reviewed with most showing E coli and Klebsiella that are nair-sensitive. She did have ESBL EColi in a UCx on 07/28/19. changed Zosyn to Meropenem, stop Vancomycin repeat BCX 07/08 now afebrile. Remove RIJ central line 07/09: Blood culture grows E coli, pansensitive, repeat blood culture 07/08 no growth so far Continue meropenem, patient is allergic to cephalosporin however tolerating IV ceftriaxone Switched to Augmentin. Monitor leukocytosis which is trending up # Acute pyelonephritis: Delete Acute pyelonephritis related to left ureteral stone and hydronephrosis As above # Hydronephrosis due to obstruction of ureter: Urology following, status post cystoscopy, retrograde pyelogram, left proximal stent placement on 07/05/2024 # Atrial fibrillation: Patient does have a history of AFib on apixaban at home. Patient is also on diltiazem and metoprolol at home -patient had a couple of episodes of AFib RVR which was managed with metoprolol IV -since patient is unable to take oral meds at this time, paint spraying machine operator helper started metoprolol IV p.r.n. for tachycardia -paint spraying machine operator helper was holding Eliquis given thrombocytopenia Heart rate reasonable so will not schedule IV metoprolol. Resume oral metoprolol and Eliquis # AMS (altered mental status): Altered mental status mostly likely secondary to severe sepsis, UTI, pyelonephritis -07/05: CT brain was negative for any acute intracranial abnormality Ammonia <9. TSH normal. Monitor mental status which is improving slowly Seroquel was restarted likely having hypoactive delirium which has been stopped now will also hold BuSpar # Type 2 diabetes mellitus: Accu-Cheks and sliding scale insulin Holding Lantus since patient is not taking p.o. diet # Thrombocytopenia - plt count dropped suspecting related to consumption from sepsis. She does have borderline enlarged spleen. Follow. Slowly improving # DVT prophylaxis: SCDs, no chemoprophylaxis due to thrombocytopenia resume Eliquis # Stress ulcer prophylaxis: Protonix # Code Status: Do not resuscitate Subjective Date/time seen: 07/12/24 12:05 Interval history: Patient more awake working with occupational therapy. Feels dizzy when she sat up. No fever chills. Review of Systems Review of Systems: All systems reviewed & are unremarkable except as noted in HPI and below Exam Narrative: GENERAL: Ill-appearing in no acute distress. Well-nourished. Frail looking - EYES: EOMI. Anicteric. - HENT: Dry mucous membranes. - LUNGS: Clear to auscultation bilaterally, no wheezing, rhonchi, or rales. - CARDIOVASCULAR: Regular rate and rhythm. No murmur. No JVD. - ABDOMEN: Soft, non-tender and non-distended. No palpable masses. - EXTREMITIES: No edema. Peripheral pulses 2+. Non-tender. - NEUROLOGIC: Moving all extremities - PSYCHIATRIC: Alert awake more attentive however slow to respond - SKIN: No rashes or lesions. Warm. - LYMPH: No cervical lymphadenopathy. Objective Data Vital Signs Vital Signs: Vital Signs - 24 hr 07/11/24 13:00 07/11/24 14:00 07/11/24 14:40 Temperature 96.8 F L 97.0 F L Pulse Rate 91 99 100 Respiratory Rate 18 18 Blood Pressure 142/78 H 151/90 H Pulse Oximetry 99 97 Oxygen Delivery Oxygen Flow Rate 07/11/24 20:00 07/11/24 21:05 07/12/24 05:00 Temperature 97 F L 96.6 F L Pulse Rate 83 76 Respiratory Rate 18 20 Blood Pressure 132/78 154/102 H Pulse Oximetry 96 96 100 Oxygen Delivery Nasal Cannula Oxygen Flow Rate 1 07/12/24 10:00 07/12/24 10:05 Temperature Pulse Rate 78 Respiratory Rate Blood Pressure Pulse Oximetry 100 Oxygen Delivery Nasal Cannula Oxygen Flow Rate 1 Intake/Output Intake/Output: Intake & Output 07/09/24 07/10/24 07/11/24 07/12/24 23:59 23:59 23:59 23:59 Intake Total 3680 1850 890 600 Output Total 1250 2000 2450 400 Balance 2430 -150 -1560 200 Meds/Results Medications: Active Medications Generic Name Dose Route Start Last Admin Trade Name Victor Manuelq PRN Reason Stop Dose Admin Acetaminophen 650 mg 07/05/24 12:59 Acetaminophen 325 Mg Tablet PO Q4H PRN Mild Pain (1-3) or Fever Acetaminophen 650 mg 07/06/24 04:59 07/06/24 21:09 Acetaminophen 650 Mg Suppository RECTAL 650 mg Q6H PRN Administration Mild Pain (1-3/ Fever IF NPO Amoxicillin/Clavulanate Potassium 1 tablet 07/10/24 21:30 07/12/24 05:41 Amoxicillin/Clavulanate K 875-125 Mg Tab PO 07/14/24 23:59 1 tablet Q8HR CRYSTAL Administration Apixaban 5 mg 07/11/24 21:00 07/12/24 10:06 Apixaban 5 Mg Tablet PO 5 mg Q12HR CRYSTAL Administration Aspirin 81 mg 07/11/24 09:00 07/12/24 10:06 Aspirin 81 Mg Enteric Tablet PO 81 mg DAILY CRYSTAL Administration Bisacodyl 10 mg 07/10/24 13:02 Bisacodyl 10 Mg Suppository RECTAL HS PRN constipation Buspirone HCl 30 mg 07/11/24 09:00 07/11/24 10:12 Buspirone Hcl 10 Mg Tablet PO Not Given BID CRYSTAL Dextrose 12.5 gm 07/05/24 13:02 Dextrose 50% 25 Gm/50 Ml Syringe IV PUSH PRN PRN Hypoglycemia Protocol Diltiazem HCl 120 mg 07/11/24 09:00 07/12/24 10:04 Diltiazem Hcl Cd 120 Mg Cap.24hr PO 120 mg DAILY CRYSTAL Administration Docusate Sodium 100 mg 07/10/24 13:02 Docusate Sodium 100 Mg Capsule PO DAILY PRN constipation Escitalopram Oxalate 20 mg 07/11/24 09:00 07/12/24 10:05 Escitalopram Oxalate 10 Mg Tablet PO 20 mg DAILY CRYSTAL Administration Glucagon 1 mg 07/05/24 13:02 Glucagon For Inj 1 Mg Vial IM PRN PRN Hypoglycemia Protocol Glucose 15 gm 07/05/24 13:02 Glucose Oral Gel 15 Gm Of Glucse In 37.5 Gm Tube PO PRN PRN Hypoglycemia Protocol Dextrose 1,000 mls @ 100 mls/hr 07/05/24 13:02 Dextrose 5% 1,000 Ml IVPB PRN PRN Hypoglycemia Protocol Insulin Aspart 4 units 07/05/24 17:00 07/12/24 10:03 Insulin Aspart (*Bkc) 100 Units/Ml SUB-Q 4 units TIDWM CRYSTAL Administration Insulin Aspart 3 - 6 units 07/06/24 08:00 07/12/24 12:02 Insulin Aspart (*Bkc) 100 Units/Ml SUB-Q Not Given TIDWM [facility] Protocol Insulin Aspart 1 - 3 units 07/05/24 21:00 07/11/24 21:20 Insulin Aspart (*Bkc) 100 Units/Ml SUB-Q Not Given HS [facility] Protocol Insulin Glargine 12 units 07/06/24 09:00 Insulin Glargine (*Bkc) 100 Units/Ml SUB-Q DAILY [facility] Levothyroxine Sodium 150 mcg 07/11/24 06:30 07/12/24 05:41 Levothyroxine Sodium 150 Mcg Tablet PO 150 mcg DAILY@0630 CRYSTAL Administration Magnesium Oxide 800 mg 07/11/24 09:00 07/12/24 10:05 Magnesium Oxide 400 Mg Tablet PO 800 mg DAILY CRYSTAL Administration Metoprolol Succinate 25 mg 07/10/24 13:05 07/12/24 10:05 Metoprolol Succinate Ext Rel 25 Mg Tabcr PO 25 mg DAILY CRYSTAL Administration Metoprolol Tartrate 5 mg 07/06/24 07:19 07/07/24 21:14 Metoprolol Tartrate Inj 5 Mg/5 Ml Vial IV PUSH 5 mg Q6H PRN Administration Tachycardia Morphine Sulfate 2 mg 07/10/24 20:45 07/10/24 21:13 Morphine Sulfate (*Crx) 2 Mg/Ml Inj IV PUSH 2 mg Q4H PRN Administration Pain Rated 7-10 Pantoprazole Sodium 40 mg 07/07/24 09:00 07/12/24 10:02 Pantoprazole Sodium Iv 40 Mg Vial IV PUSH 40 mg QAM CRYSTAL Administration Polymyxin/Trimethoprim Sulfate 1 drop 07/05/24 17:00 07/12/24 10:06 Polymyxin/Trimethoprim Ophth 10 Ml Drops EACH EYE 1 drop Q4HWA CRYSTAL Administration Potassium Chloride 20 meq 07/08/24 15:00 07/12/24 10:06 Potassium Chloride 20 Meq Packet (For Liquid) PO 20 meq DAILY CRYSTAL Administration Quetiapine Fumarate 300 mg 07/10/24 21:00 07/10/24 21:13 Quetiapine Fumarate 100 Mg Tablet PO 300 mg QHS CRYSTAL Administration Quetiapine Fumarate 50 mg 07/11/24 09:00 07/11/24 10:13 Quetiapine Fumarate 25 Mg Tablet PO Not Given DAILY [facility] Sodium Chloride 20 ml 07/05/24 20:47 Central Line Flush IV PUSH PRN PRN after blood draws Vitamin D 2,000 units 07/11/24 09:00 07/12/24 10:05 Cholecalciferol 1,000 Units Tablet PO 2,000 units DAILY CRYSTAL Administration Radiology Results: ITS Impressions Head CT 07/05/24 14:26 IMPRESSION: Cerebral atherosclerosis and proximal vessel ischemic changes of the cerebral white matter No acute intracranial finding or significant change since 01/06/2018 Chest/Abdomen/Pelvis CTA 07/05/24 14:55 IMPRESSION: Left-sided hydroureteronephrosis secondary to a 9 mm stone in the proximal to mid left ureter. No pulmonary embolus. No aortic dissection. 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 Modified Barium Swallow 07/09/24 13:38 IMPRESSION: 1. Laryngeal penetration. 2. Please refer to the speech therapy report for recommendations. Chest X-Ray 07/10/24 14:58 IMPRESSION: Mild pulmonary vascular congestion, without focal infiltrate or effusion. Abdomen X-Ray 07/10/24 15:00 IMPRESSION: 14 mm oval-shaped calculus projecting over the pigtail portion of the proximal double-J stent, as detailed above. Labs Labs: Laboratory Results - last 24 hr 07/11/24 07/11/24 07/12/24 16:15 21:08 06:39 WBC 11.8 H RBC 4.10 L Hgb 9.8 L Hct 31.4 L MCV 76.6 L MCH 23.9 L MCHC 31.2 L RDW 17.9 H Plt Count 168 MPV 10.5 H Immature Gran % (Auto) 2.8 H Neut % (Auto) 69.1 Lymph % (Auto) 19.4 [place] % (Auto) 6.7 Eos % (Auto) 1.7 Baso % (Auto) 0.3 Lymph # (Auto) 2.29 [place] # (Auto) 0.8 H Eos # (Auto) 0.2 Baso # (Auto) 0.0 Abs Immat Gran (auto) 0.33 H Absolute Neuts (auto) 8.2 H Absolute Nucleated RBC 0.000 Nucleated RBC % 0.0 Sodium 135 L Potassium 3.8 Chloride 97 L Carbon Dioxide 37 H Anion Gap 1 L BUN 15 Creatinine 0.76 Estim Creat Clear Calc 73 Estimated GFR > 60 Glucose 140 H POC Capillary Glucose 181 H 141 H Calcium 9.2 Magnesium 1.7 Total Bilirubin 0.8 AST 16 ALT 12 Alkaline Phosphatase 90 Total Protein 6.0 L Albumin 2.6 L 07/12/24 07/12/24 07:46 11:13 WBC RBC Hgb Hct MCV MCH MCHC RDW Plt Count MPV Immature Gran % (Auto) Neut % (Auto) Lymph % (Auto) [place] % (Auto) Eos % (Auto) Baso % (Auto) Lymph # (Auto) [place] # (Auto) Eos # (Auto) Baso # (Auto) Abs Immat Gran (auto) Absolute Neuts (auto) Absolute Nucleated RBC Nucleated RBC % Sodium Potassium Chloride Carbon Dioxide Anion Gap BUN Creatinine Estim Creat Clear Calc Estimated GFR Glucose POC Capillary Glucose 168 H 185 H Calcium Magnesium Total Bilirubin AST ALT Alkaline Phosphatase Total Protein Albumin
[2024-07-12 14:00] VITALS: BP 134/79; PULSE 83; RESP 18; TEMP 36.1; O2SAT 95
[2024-07-12 17:05] LABS: Glucose Point of Care 146 mg/dl (65-105)
[2024-07-12 21:15] VITALS: BP 158/83; PULSE 78; RESP 20; TEMP 36.6; O2SAT 98
[2024-07-12 22:25] LABS: Glucose Point of Care 151 mg/dl (65-105)
[2024-07-12 23:02] VITALS: PULSE 82; RESP 15; O2SAT 94
[2024-07-13] VITALS (8 sets, daily range): BP systolic 127–150; BP diastolic 70–91; PULSE 70–83; RESP 14–20; TEMP 36.1–36.7; O2SAT 95–99
[2024-07-13] MEDS: POLYMYXIN/TRIMETHOPRIM OPHTH 10 ML DROPS 1 DROP EACH EYE ×5 (05:42→20:33)
[2024-07-13] MEDS: LEVOTHYROXINE SODIUM 150 MCG TABLET PO (05:42)
[2024-07-13] MEDS: AMOXICILLIN/CLAVULANATE K 875-125 MG TAB 1 TABLET PO ×3 (05:43→20:34)
[2024-07-13 07:23] LABS: Basophils Absolute Auto 0.1 K/mm3 (0.0-0.1); Basophils Percent Auto 0.4 % (0.2-1.2); Eosinophils Absolute Auto 0.2 K/mm3 (0-0.3); Eosinophils Percent Auto 1.5 % (0-4.4); Hematocrit 31.5 % (37.0-47.0); Hemoglobin 9.7 g/dL (12.0-15.0); Immature Granulocyte Absolute 0.43 K/mm3 (0.00-0.031); Immature Granulocyte Percent A 3.5 % (0-0.5); Lymphocytes Absolute Auto 2.44 K/mm3 (0.9-3.2); Lymphocytes Percent Auto 19.7 % (18.3-44.2); Mean Corpuscular HGB Conc 30.8 g/dl (32-36); Mean Corpuscular Hemoglobin 23.4 pg (26-34); Mean Corpuscular Volume 76.1 fl (80-100); Mean Platelet Volume 11.4 fl (7.4-10.4); Monocytes Absolute Auto 0.8 K/mm3 (0.1-0.6); Monocytes Percent Auto 6.2 % (2.6-8.5); Neutrophils Absolute Auto 8.5 K/mm3 (1.3-6.7); Neutrophils Percent Auto 68.7 % (45.5-73.1); Platelet Count Result 234 k/mm3 (150-375); Red Blood Count 4.14 M/mm3 (4.2-5.4); Red Cell Distribution Width 18.6 % (11.5-14.5); White Blood Count 12.4 K/mm3 (4.5-10.0)
[2024-07-13 07:39] LABS: Alanine Aminotransferase 11 U/L (6-35); Albumin Level 2.7 g/dL (3.5-5.1); Alkaline Phosphatase 88 U/L (38-126); Anion Gap -1 mmol/L (4-12); Aspartate Amino Transferase 21 U/L (14-36); Bilirubin,Total 0.8 mg/dL (0.2-1.3); Blood Urea Nitrogen 10 mg/dL (7-17); Carbon Dioxide 37 mmol/L (22-30); Chloride 96 mmol/L (98-107); Estimated CRCL calculation 74 ml/min; Estimated Glomerular Filt Rate > 60; Glucose 142 mg/dL (65-110); Magnesium 1.7 mg/dL (1.6-2.3); Potassium 3.5 mmol/L (3.4-5.0); Sodium 132 mmol/L (137-145)
[2024-07-13 07:54] LABS: Glucose Point of Care 157 mg/dl (65-105)
[2024-07-13] MEDS: dilTIAZem HCL CD 120 MG CAP.24HR PO (08:51)
[2024-07-13] MEDS: ESCITALOPRAM OXALATE 10 MG TABLET 20 MG PO (08:51)
[2024-07-13] MEDS: MAGNESIUM OXIDE 400 MG TABLET 800 MG PO (08:51)
[2024-07-13] MEDS: APIXABAN 5 MG TABLET PO ×2 (08:52→20:34)
[2024-07-13] MEDS: CHOLECALCIFEROL 1,000 UNITS TABLET 2000 UNITS PO (08:52)
[2024-07-13] MEDS: METOPROLOL SUCCINATE EXT REL 25 MG TABCR PO (08:52)
[2024-07-13] MEDS: ASPIRIN 81 MG ENTERIC TABLET PO (08:52)
[2024-07-13] MEDS: INSULIN ASPART (*BKC) 100 UNITS/ML SUB-Q ×3 (08:53→17:34)
[2024-07-13] MEDS: POTASSIUM CHLORIDE 20 MEQ PACKET (FOR LIQUID) PO (08:55)
[2024-07-13] MEDS: PANTOPRAZOLE SODIUM IV 40 MG VIAL IV PUSH (08:56)
--- NOTE | 2024-07-13 10:26 | PM.IMPN ---
Progress Note: A&P Assessment and Plan (1) Severe sepsis: Code(s): A41.9 - Sepsis, unspecified organism; R65.20 - Severe sepsis without septic shock Status: Acute (2) Acute pyelonephritis: Code(s): N10 - Acute pyelonephritis Status: Acute (3) Hydronephrosis due to obstruction of ureter: Code(s): N13.1 - Hydronephrosis with ureteral stricture, not elsewhere classified Status: Acute (4) Atrial fibrillation: Qualifiers: Atrial fibrillation type: unspecified chronic Qualified Code(s): I48.20 - Chronic atrial fibrillation, unspecified Code(s): I48.91 - Unspecified atrial fibrillation Status: Chronic (5) AMS (altered mental status): Code(s): R41.82 - Altered mental status, unspecified Status: Acute (6) Type 2 diabetes mellitus: Code(s): E11.9 - Type 2 diabetes mellitus without complications Status: Chronic Plan # Severe sepsis: Delete 07/05: Patient presented from retirement, with lethargy, generalized weakness, altered mental status, was found to have left ureteral stone with hydronephrosis, status post cystoscopy, retrograde pyelogram with stent placement to left proximal ureter. CTA Ch/A/P showing left-sided hydroureteronephrosis secondary to a 9 mm stone in the proximal to mid left ureter. No PE or aortic dissection. 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 Urology consulted and patient underwent cystoscopy, left retrograde pyelogram, left ureteral stent placement 07/05/24. Purulent drainage was seen once the stent was placed. Patient was given adequate amount of IV fluids, Lactic acid was initially elevated which has normalized -patient has not required any pressors at this time as blood pressures have been stable MRSA nasal swab negative. BCx 07/05: e coli Patient was on linezolid and Zosyn, (07/05); discontinue linezolid and started vancomycin 07/06 Creatinine trending down. WBC normal. Old Cx reviewed with most showing E coli and Klebsiella that are nair-sensitive. She did have ESBL EColi in a UCx on 07/28/19. changed Zosyn to Meropenem, stop Vancomycin repeat BCX 07/08 now afebrile. Remove RIJ central line 07/09: Blood culture grows E coli, pansensitive, repeat blood culture 07/08 no growth so far Continue meropenem, patient is allergic to cephalosporin however tolerating IV ceftriaxone Switched to Augmentin. Monitor leukocytosis which is trending up AMS (altered mental status): Altered mental status mostly likely secondary to severe sepsis, UTI, pyelonephritis -07/05: CT brain was negative for any acute intracranial abnormality Ammonia <9. TSH normal. Monitor mental status which is improving slowly Seroquel was restarted likely having hypoactive delirium which has been stopped now will also hold BuSpar Bicarbonate 37, follow ABG, need to rule out CO2 retention, patient has obesity VBG pco2 43wnl # Acute pyelonephritis: Acute pyelonephritis related to left ureteral stone and hydronephrosis As above # Hydronephrosis due to obstruction of ureter: Urology following, status post cystoscopy, retrograde pyelogram, left proximal stent placement on 07/05/2024 # Atrial fibrillation: Patient does have a history of AFib on apixaban at home. Patient is also on diltiazem and metoprolol at home -patient had a couple of episodes of AFib RVR which was managed with metoprolol IV -since patient is unable to take oral meds at this time, hot bread baker started metoprolol IV p.r.n. for tachycardia -hot bread baker was holding Eliquis given thrombocytopenia Heart rate reasonable so will not schedule IV metoprolol. Resume oral metoprolol and Eliquis # Type 2 diabetes mellitus: Accu-Cheks and sliding scale insulin Holding Lantus since patient is not taking p.o. diet # Thrombocytopenia - plt count dropped suspecting related to consumption from sepsis. She does have borderline enlarged spleen. Follow. Slowly improving # DVT prophylaxis: SCDs, no chemoprophylaxis due to thrombocytopenia resume Eliquis # Stress ulcer prophylaxis: Protonix # Code Status: Do not resuscitate Subjective Date/time seen: 07/13/24 10:26 Interval history: Patient mental status is improving, patient is on BiPAP at home. No fever chills. Patient has metabolic acidosis, white blood cells trending up hypothermia 96.9 Order chest x-ray, ABG Exam Narrative: GENERAL: Ill-appearing in no acute distress. Well-nourished. Frail looking - EYES: EOMI. Anicteric. - HENT: Dry mucous membranes. - LUNGS: Clear to auscultation bilaterally, no wheezing, rhonchi, or rales. - CARDIOVASCULAR: Regular rate and rhythm. No murmur. No JVD. - ABDOMEN: Soft, non-tender and non-distended. No palpable masses. - EXTREMITIES: No edema. Peripheral pulses 2+. Non-tender. - NEUROLOGIC: Moving all extremities - PSYCHIATRIC: Alert awake more attentive however slow to respond - SKIN: No rashes or lesions. Warm. - LYMPH: No cervical lymphadenopathy. Objective Data Vital Signs Vital Signs: Vital Signs - 24 hr 07/12/24 13:50 07/12/24 14:00 07/12/24 20:00 Temperature 97.0 F L Pulse Rate 83 Respiratory Rate 18 Blood Pressure 134/79 Pulse Oximetry 95 Oxygen Delivery Room Air CPAP Oxygen Flow Rate 07/12/24 21:15 07/12/24 23:02 07/13/24 03:00 Temperature 98 F Pulse Rate 78 82 70 Respiratory Rate 20 15 14 Blood Pressure 158/83 H Pulse Oximetry 98 94 95 Oxygen Delivery Autopap Autopap Oxygen Flow Rate 07/13/24 06:00 07/13/24 08:52 07/13/24 08:55 Temperature 96.9 F L Pulse Rate 77 72 Respiratory Rate 16 Blood Pressure 150/91 H Pulse Oximetry 97 97 Oxygen Delivery Nasal Cannula Oxygen Flow Rate 1 Intake/Output Intake/Output: Intake & Output 07/10/24 07/11/24 07/12/24 07/13/24 23:59 23:59 23:59 23:59 Intake Total 3471 251 8342 250 Output Total 1999 2450 400 1000 Balance -150 -1560 1050 -750 Meds/Results Medications: Active Medications Generic Name Dose Route Start Last Admin Trade Name Freq PRN Reason Stop Dose Admin Acetaminophen 650 mg 07/05/24 12:59 Acetaminophen 325 Mg Tablet PO Q4H PRN Mild Pain (1-3) or Fever Acetaminophen 650 mg 07/06/24 04:59 07/06/24 21:09 Acetaminophen 650 Mg Suppository RECTAL 650 mg Q6H PRN Administration Mild Pain (1-3/ Fever IF NPO Amoxicillin/Clavulanate Potassium 1 tablet 07/10/24 21:30 07/13/24 05:43 Amoxicillin/Clavulanate K 875-125 Mg Tab PO 07/14/24 23:59 1 tablet Q8HR CRYSTAL Administration Apixaban 5 mg 07/11/24 21:00 07/13/24 08:52 Apixaban 5 Mg Tablet PO 5 mg Q12HR CRYSTAL Administration Aspirin 81 mg 07/11/24 09:00 07/13/24 08:52 Aspirin 81 Mg Enteric Tablet PO 81 mg DAILY [facility]AL Administration Bisacodyl 10 mg 07/10/24 13:02 Bisacodyl 10 Mg Suppository RECTAL HS PRN constipation Buspirone HCl 30 mg 07/11/24 09:00 07/11/24 10:12 Buspirone Hcl 10 Mg Tablet PO Not Given BID CRYSTAL Dextrose 12.5 gm 07/05/24 13:02 Dextrose 50% 25 Gm/50 Ml Syringe IV PUSH PRN PRN Hypoglycemia Protocol Diltiazem HCl 120 mg 07/11/24 09:00 07/13/24 08:51 Diltiazem Hcl Cd 120 Mg Cap.24hr PO 120 mg DAILY [facility]STAL Administration Docusate Sodium 100 mg 07/10/24 13:02 Docusate Sodium 100 Mg Capsule PO DAILY PRN constipation Escitalopram Oxalate 20 mg 07/11/24 09:00 07/13/24 08:51 Escitalopram Oxalate 10 Mg Tablet PO 20 mg DAILY [facility]AL Administration Glucagon 1 mg 07/05/24 13:02 Glucagon For Inj 1 Mg Vial IM PRN PRN Hypoglycemia Protocol Glucose 15 gm 07/05/24 13:02 Glucose Oral Gel 15 Gm Of Glucse In 37.5 Gm Tube PO PRN PRN Hypoglycemia Protocol Dextrose 1,000 mls @ 100 mls/hr 07/05/24 13:02 Dextrose 5% 1,000 Ml IVPB PRN PRN Hypoglycemia Protocol Insulin Aspart 4 units 07/05/24 17:00 07/13/24 08:53 Insulin Aspart (*Bkc) 100 Units/Ml SUB-Q 4 units TIDWM [facility]STAL Administration Insulin Aspart 3 - 6 units 07/06/24 08:00 07/13/24 08:48 Insulin Aspart (*Bkc) 100 Units/Ml SUB-Q Not Given TIDWM ON LICENSE OF [facility] Protocol Insulin Aspart 1 - 3 units 07/05/24 21:00 07/12/24 21:08 Insulin Aspart (*Bkc) 100 Units/Ml SUB-Q Not Given HS ON LICENSE OF [facility] Protocol Insulin Glargine 12 units 07/06/24 09:00 Insulin Glargine (*Bkc) 100 Units/Ml SUB-Q DAILY ON LICENSE OF [facility] Levothyroxine Sodium 150 mcg 07/11/24 06:30 07/13/24 05:42 Levothyroxine Sodium 150 Mcg Tablet PO 150 mcg DAILY@0630 CRYSTAL Administration Magnesium Oxide 800 mg 07/11/24 09:00 07/13/24 08:51 Magnesium Oxide 400 Mg Tablet PO 800 mg DAILY CRYSTAL Administration Metoprolol Succinate 25 mg 07/10/24 13:05 07/13/24 08:52 Metoprolol Succinate Ext Rel 25 Mg Tabcr PO 25 mg DAILY CRYSTAL Administration Metoprolol Tartrate 5 mg 07/06/24 07:19 07/07/24 21:14 Metoprolol Tartrate Inj 5 Mg/5 Ml Vial IV PUSH 5 mg Q6H PRN Administration Tachycardia Morphine Sulfate 2 mg 07/10/24 20:45 07/10/24 21:13 Morphine Sulfate (*Crx) 2 Mg/Ml Inj IV PUSH 2 mg Q4H PRN Administration Pain Rated 7-10 Pantoprazole Sodium 40 mg 07/07/24 09:00 07/13/24 08:56 Pantoprazole Sodium Iv 40 Mg Vial IV PUSH 40 mg QAM CRYSTAL Administration Polymyxin/Trimethoprim Sulfate 1 drop 07/05/24 17:00 07/13/24 08:52 Polymyxin/Trimethoprim Ophth 10 Ml Drops EACH EYE 1 drop Q4HWA CRYSTAL Administration Potassium Chloride 20 meq 07/08/24 15:00 07/13/24 08:55 Potassium Chloride 20 Meq Packet (For Liquid) PO 20 meq DAILY CRYSTAL Administration Quetiapine Fumarate 300 mg 07/10/24 21:00 07/10/24 21:13 Quetiapine Fumarate 100 Mg Tablet PO 300 mg QHS CRYSTAL Administration Quetiapine Fumarate 50 mg 07/11/24 09:00 07/11/24 10:13 Quetiapine Fumarate 25 Mg Tablet PO Not Given DAILY ON LICENSE OF [facility] Sodium Chloride 20 ml 07/05/24 20:47 Central Line Flush IV PUSH PRN PRN after blood draws Vitamin D 2,000 units 07/11/24 09:00 07/13/24 08:52 Cholecalciferol 1,000 Units Tablet PO 2,000 units DAILY CRYSTAL Administration Radiology Results: ITS Impressions Head CT 07/05/24 14:26 IMPRESSION: Cerebral atherosclerosis and proximal vessel ischemic changes of the cerebral white matter No acute intracranial finding or significant change since 01/06/2018 Chest/Abdomen/Pelvis CTA 07/05/24 14:55 IMPRESSION: Left-sided hydroureteronephrosis secondary to a 9 mm stone in the proximal to mid left ureter. No pulmonary embolus. No aortic dissection. 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 Modified Barium Swallow 07/09/24 13:38 IMPRESSION: 1. Laryngeal penetration. 2. Please refer to the speech therapy report for recommendations. Chest X-Ray 07/10/24 14:58 IMPRESSION: Mild pulmonary vascular congestion, without focal infiltrate or effusion. Abdomen X-Ray 07/10/24 15:00 IMPRESSION: 14 mm oval-shaped calculus projecting over the pigtail portion of the proximal double-J stent, as detailed above. Labs Labs: Laboratory Results - last 24 hr 07/12/24 07/12/24 07/12/24 11:13 17:00 21:17 WBC RBC Hgb Hct MCV MCH MCHC RDW Plt Count MPV Immature Gran % (Auto) Neut % (Auto) Lymph % (Auto) [facility] % (Auto) Eos % (Auto) Baso % (Auto) Lymph # (Auto) [facility] # (Auto) Eos # (Auto) Baso # (Auto) Abs Immat Gran (auto) Absolute Neuts (auto) Absolute Nucleated RBC Nucleated RBC % Sodium Potassium Chloride Carbon Dioxide Anion Gap BUN Creatinine Estim Creat Clear Calc Estimated GFR Glucose POC Capillary Glucose 185 H 146 H 151 H Calcium Magnesium Total Bilirubin AST ALT Alkaline Phosphatase Total Protein Albumin 07/13/24 07/13/24 06:21 07:50 WBC 12.4 H RBC 4.14 L Hgb 9.7 L Hct 31.5 L MCV 76.1 L MCH 23.4 L MCHC 30.8 L RDW 18.6 H Plt Count 234 MPV 11.4 H Immature Gran % (Auto) 3.5 H Neut % (Auto) 68.7 Lymph % (Auto) 19.7 [facility] % (Auto) 6.2 Eos % (Auto) 1.5 Baso % (Auto) 0.4 Lymph # (Auto) 2.44 [facility] # (Auto) 0.8 H Eos # (Auto) 0.2 Baso # (Auto) 0.1 Abs Immat Gran (auto) 0.43 H Absolute Neuts (auto) 8.5 H Absolute Nucleated RBC 0.000 Nucleated RBC % 0.0 Sodium 132 L Potassium 3.5 Chloride 96 L Carbon Dioxide 37 H Anion Gap -1 L BUN 10 D Creatinine 0.74 Estim Creat Clear Calc 74 Estimated GFR > 60 Glucose 142 H POC Capillary Glucose 157 H Calcium 9.0 Magnesium 1.7 Total Bilirubin 0.8 AST 21 ALT 11 Alkaline Phosphatase 88 Total Protein 6.0 L Albumin 2.7 L
--- NOTE | 2024-07-13 11:10 | PCNFU ---
Nutrition Follow-Up Complete: Inadequate energy intake related to NPO, lethargy as evidenced by NPO day 4- Resolved Goal:Diet advancement, textures appropriate for patient needs Adequate PO intake when diet advanced Pt progressing towards goal. New Goal: PO intake 75% Pt current nutrition is Pureed level 4, heart healthy, moderately thick liquids level 3, Glucerna shakes BID. Nutrition recommendation: D/c Glucerna shakes, add nutrition ice cream cups daily Last recorded weight is 98.6 kg. Bowel Motility: +BM 07/12 Labs Reviewed: Hgb:9.7, HCt:31.5, Alb:2.7, NA:132, Glu:142 Meds Noted: lantus, novolog, protonix Skin: WNL Additional Notes: Pt reports a fair appetite, intake charted at 25-75% and varied. Pt does not like the Glucerna shakes and stated she will not drink them. Agreed to try nutrition ice cream cups daily. Monitoring swallowing ability, diet orders, weights, labs, PO intake, plan of care Follow up in 7 days.
[2024-07-13 11:16] LABS: Fractional Inspired Oxygen 24 %; PCO2 VBG 43.2 mmHg (42.0-48.0); PO2 VBG 30.1 mmHg (35.0-45.0)
[2024-07-13 11:17] LABS: Device NASAL CANNULA; pH VBG 7.488 (7.300-7.400)
[2024-07-13 11:26] LABS: Glucose Point of Care 173 mg/dl (65-105)
[2024-07-13 16:28] LABS: Glucose Point of Care 166 mg/dl (65-105)
[2024-07-13] MEDS: ACETAMINOPHEN 650 MG SUPPOSITORY RECTAL (20:56)
[2024-07-13 21:32] LABS: Glucose Point of Care 151 mg/dl (65-105)
[2024-07-14] VITALS: PULSE 76; RESP 19; O2SAT 98
[2024-07-14 05:35] VITALS: BP 156/99; PULSE 78; RESP 20; TEMP 36.1; O2SAT 97
[2024-07-14] MEDS: LEVOTHYROXINE SODIUM 150 MCG TABLET PO (05:43)
[2024-07-14] MEDS: AMOXICILLIN/CLAVULANATE K 875-125 MG TAB 1 TABLET PO ×2 (05:43→14:13)
[2024-07-14 08:03] LABS: Glucose Point of Care 165 mg/dl (65-105)
[2024-07-14] MEDS: INSULIN ASPART (*BKC) 100 UNITS/ML SUB-Q ×2 (08:39→12:52)
[2024-07-14] MEDS: PANTOPRAZOLE SODIUM IV 40 MG VIAL IV PUSH (08:43)
[2024-07-14] MEDS: ESCITALOPRAM OXALATE 10 MG TABLET 20 MG PO (08:43)
[2024-07-14] MEDS: CHOLECALCIFEROL 1,000 UNITS TABLET 2000 UNITS PO (08:43)
[2024-07-14] MEDS: METOPROLOL SUCCINATE EXT REL 25 MG TABCR PO (08:44)
[2024-07-14] MEDS: ASPIRIN 81 MG ENTERIC TABLET PO (08:44)
[2024-07-14] MEDS: MAGNESIUM OXIDE 400 MG TABLET 800 MG PO (08:44)
[2024-07-14] MEDS: APIXABAN 5 MG TABLET PO (08:44)
[2024-07-14] MEDS: dilTIAZem HCL CD 120 MG CAP.24HR PO (08:44)
[2024-07-14] MEDS: POTASSIUM CHLORIDE 20 MEQ PACKET (FOR LIQUID) PO (08:45)
[2024-07-14] MEDS: POLYMYXIN/TRIMETHOPRIM OPHTH 10 ML DROPS 1 DROP EACH EYE ×2 (08:45→12:53)
--- NOTE | 2024-07-14 09:29 | P.PNIM_ITS ---
Progress Note: A&P Assessment and Plan (1) Severe sepsis: Code(s): A41.9 - Sepsis, unspecified organism; R65.20 - Severe sepsis without septic shock Status: Acute (2) Acute pyelonephritis: Code(s): N10 - Acute pyelonephritis Status: Acute (3) Hydronephrosis due to obstruction of ureter: Code(s): N13.1 - Hydronephrosis with ureteral stricture, not elsewhere classified Status: Acute (4) Atrial fibrillation: Qualifiers: Atrial fibrillation type: unspecified chronic Qualified Code(s): I48.20 - Chronic atrial fibrillation, unspecified Code(s): I48.91 - Unspecified atrial fibrillation Status: Chronic (5) AMS (altered mental status): Code(s): R41.82 - Altered mental status, unspecified Status: Acute (6) Type 2 diabetes mellitus: Code(s): E11.9 - Type 2 diabetes mellitus without complications Status: Chronic Plan Severe sepsis 07/05: Patient presented from long term, with lethargy, generalized weakness, altered mental status, was found to have left ureteral stone with hydronephrosis, status post cystoscopy, retrograde pyelogram with stent placement to left proximal ureter. CTA Ch/A/P showing left-sided hydroureteronephrosis secondary to a 9 mm stone in the proximal to mid left ureter. No PE or aortic dissection. 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 Urology consulted and patient underwent cystoscopy, left retrograde pyelogram, left ureteral stent placement 07/05/24. Purulent drainage was seen once the stent was placed. Patient was given adequate amount of IV fluids, Lactic acid was initially elevated which has normalized -patient has not required any pressors at this time as blood pressures have been stable MRSA nasal swab negative. BCx 07/05: e coli Patient was on linezolid and Zosyn, (07/05); discontinue linezolid and started vancomycin 07/06 Creatinine trending down. WBC normal. Old Cx reviewed with most showing E coli and Klebsiella that are nair-sensitive. She did have ESBL EColi in a UCx on 07/28/19. changed Zosyn to Meropenem, stop Vancomycin repeat BCX 07/08 now afebrile. Remove RIJ central line 07/09: Blood culture grows E coli, pansensitive, repeat blood culture 07/08 no growth so far Continue meropenem, patient is allergic to cephalosporin however tolerating IV ceftriaxone Switched to Augmentin. Sepsis resolved AMS (altered mental status): Altered mental status mostly likely secondary to severe sepsis, UTI, pyelonephritis -07/05: CT brain was negative for any acute intracranial abnormality Ammonia <9. TSH normal. Monitor mental status which is improving slowly Seroquel was restarted likely having hypoactive delirium which has been stopped now will also hold BuSpar Bicarbonate 37, follow ABG, need to rule out CO2 retention, patient has obesity VBG pco2 43wnl mental status is inproving on the baseline Acute pyelonephritis: Acute pyelonephritis related to left ureteral stone and hydronephrosis As above Hydronephrosis due to obstruction of ureter: Urology following, status post cystoscopy, retrograde pyelogram, left proximal stent placement on 07/05/2024 Atrial fibrillation: Patient does have a history of AFib on apixaban at home. Patient is also on diltiazem and metoprolol at home -patient had a couple of episodes of AFib RVR which was managed with metoprolol IV -since patient is unable to take oral meds at this time, personal banker started metoprolol IV p.r.n. for tachycardia -personal banker was holding Eliquis given thrombocytopenia Heart rate reasonable so will not schedule IV metoprolol. Resume oral metoprolol and Eliquis Type 2 diabetes mellitus: Accu-Cheks and sliding scale insulin Holding Lantus since patient is not taking p.o. diet Thrombocytopenia - plt count dropped initially, possible due to sepsis Has resolved DVT prophylaxis: Eliquis Stress ulcer prophylaxis: Protonix Code Status: Do not resuscitate Subjective Date/time seen: 07/14/24 09:29 Interval history: Patient mental status continued to improve, patient is on BiPAP at home. VBG shows no CO2 retention, now patient is afebrile blood pressure stable, pulse ox 97 on room air, patient has good appetite Exam Narrative: GENERAL: Ill-appearing in no acute distress. Well-nourished. Frail looking - EYES: EOMI. Anicteric. - HENT: Dry mucous membranes. - LUNGS: Clear to auscultation bilateral ly, no wheezing, rhonchi, or rales. - CARDIOVASCULAR: Regular rate and rhyth m. No murmur. No JVD. - ABDOMEN: Soft, non-tender and non-dist ended. No palpable masses. - EXTREMITIES: No edema. Peripheral puls es 2+. Non-tender. - NEUROLOGIC: Moving all extremities - PSYCHIATRIC: Alert awake more attenti ve however slow to respond - SKIN: No rashes or lesions. Warm. - LYMPH: No cervical lymphadenopathy. Objective Data Vital Signs Vital Signs: Vital Signs - 24 hr 07/13/24 14:00 07/13/24 19:49 07/13/24 20:00 Temperature 97.0 F L Pulse Rate 83 Respiratory Rate 18 Blood Pressure 128/70 Pulse Oximetry 99 96 97 Oxygen Delivery Nasal Cannula Nasal Cannula Oxygen Flow Rate 1 1 07/13/24 21:20 07/14/24 00:00 07/14/24 05:35 Temperature 98.1 F 97 F L Pulse Rate 75 76 78 Respiratory Rate 20 19 20 Blood Pressure 127/76 156/99 H Pulse Oximetry 97 98 97 Oxygen Delivery Autopap Oxygen Flow Rate Intake/Output Intake/Output: Intake & Output 07/11/24 07/12/24 07/13/24 07/14/24 23:59 23:59 23:59 23:59 Intake Total 890 1450 970 450 Output Total 2450 400 1000 300 Balance -1560 1050 -30 150 Meds/Results Medications: Active Medications Generic Name Dose Route Start Last Admin Trade Name Freq PRN Reason Stop Dose Admin Acetaminophen 650 mg 07/05/24 12:59 Acetaminophen 325 Mg Tablet PO Q4H PRN Mild Pain (1-3) or Fever Acetaminophen 650 mg 07/06/24 04:59 07/13/24 20:56 Acetaminophen 650 Mg Suppository RECTAL 650 mg Q6H PRN Administration Mild Pain (1-3/ Fever IF NPO Amoxicillin/Clavulanate Potassium 1 tablet 07/10/24 21:30 07/14/24 05:43 Amoxicillin/Clavulanate K 875-125 Mg Tab PO 07/14/24 23:59 1 tablet Q8HR CRYSTAL Administration Apixaban 5 mg 07/11/24 21:00 07/14/24 08:44 Apixaban 5 Mg Tablet PO 5 mg Q12HR CRYSTAL Administration Aspirin 81 mg 07/11/24 09:00 07/14/24 08:44 Aspirin 81 Mg Enteric Tablet PO 81 mg DAILY CRYSTAL Administration Bisacodyl 10 mg 07/10/24 13:02 Bisacodyl 10 Mg Suppository RECTAL HS PRN constipation Buspirone HCl 30 mg 07/11/24 09:00 07/11/24 10:12 Buspirone Hcl 10 Mg Tablet PO Not Given BID CRYSTAL Dextrose 12.5 gm 07/05/24 13:02 Dextrose 50% 25 Gm/50 Ml Syringe IV PUSH PRN PRN Hypoglycemia Protocol Diltiazem HCl 120 mg 07/11/24 09:00 07/14/24 08:44 Diltiazem Hcl Cd 120 Mg Cap.24hr PO 120 mg DAILY CRYSTAL Administration Docusate Sodium 100 mg 07/10/24 13:02 Docusate Sodium 100 Mg Capsule PO DAILY PRN constipation Escitalopram Oxalate 20 mg 07/11/24 09:00 07/14/24 08:43 Escitalopram Oxalate 10 Mg Tablet PO 20 mg DAILY CRYSTAL Administration Glucagon 1 mg 07/05/24 13:02 Glucagon For Inj 1 Mg Vial IM PRN PRN Hypoglycemia Protocol Glucose 15 gm 07/05/24 13:02 Glucose Oral Gel 15 Gm Of Glucse In 37.5 Gm Tube PO PRN PRN Hypoglycemia Protocol Dextrose 1,000 mls @ 100 mls/hr 07/05/24 13:02 Dextrose 5% 1,000 Ml IVPB PRN PRN Hypoglycemia Protocol Insulin Aspart 4 units 07/05/24 17:00 07/14/24 08:39 Insulin Aspart (*Bkc) 100 Units/Ml SUB-Q 4 units TIDWM [facility] Administration Insulin Aspart 3 - 6 units 07/06/24 08:00 07/14/24 08:36 Insulin Aspart (*Bkc) 100 Units/Ml SUB-Q Not Given TIDWM [facility] Protocol Insulin Aspart 1 - 3 units 07/05/24 21:00 07/13/24 21:38 Insulin Aspart (*Bkc) 100 Units/Ml SUB-Q Not Given HS [facility] Protocol Insulin Glargine 12 units 07/06/24 09:00 Insulin Glargine (*Bkc) 100 Units/Ml SUB-Q DAILY [facility] Levothyroxine Sodium 150 mcg 07/11/24 06:30 07/14/24 05:43 Levothyroxine Sodium 150 Mcg Tablet PO 150 mcg DAILY@0630 [facility] Administration Magnesium Oxide 800 mg 07/11/24 09:00 07/14/24 08:44 Magnesium Oxide 400 Mg Tablet PO 800 mg DAILY CRYSTAL Administration Metoprolol Succinate 25 mg 07/10/24 13:05 07/14/24 08:44 Metoprolol Succinate Ext Rel 25 Mg Tabcr PO 25 mg DAILY CRYSTAL Administration Metoprolol Tartrate 5 mg 07/06/24 07:19 07/07/24 21:14 Metoprolol Tartrate Inj 5 Mg/5 Ml Vial IV PUSH 5 mg Q6H PRN Administration Tachycardia Morphine Sulfate 2 mg 07/10/24 20:45 07/10/24 21:13 Morphine Sulfate (*Crx) 2 Mg/Ml Inj IV PUSH 2 mg Q4H PRN Administration Pain Rated 7-10 Pantoprazole Sodium 40 mg 07/07/24 09:00 07/14/24 08:43 Pantoprazole Sodium Iv 40 Mg Vial IV PUSH 40 mg QAM CRYSTAL Administration Polymyxin/Trimethoprim Sulfate 1 drop 07/05/24 17:00 07/14/24 08:45 Polymyxin/Trimethoprim Ophth 10 Ml Drops EACH EYE 1 drop Q4HWA [facility]YSTAL Administration Potassium Chloride 20 meq 07/08/24 15:00 07/14/24 08:45 Potassium Chloride 20 Meq Packet (For Liquid) PO 20 meq DAILY [facility]YSTAL Administration Quetiapine Fumarate 300 mg 07/10/24 21:00 07/10/24 21:13 Quetiapine Fumarate 100 Mg Tablet PO 300 mg QHS CRYSTAL Administration Quetiapine Fumarate 50 mg 07/11/24 09:00 07/11/24 10:13 Quetiapine Fumarate 25 Mg Tablet PO Not Given DAILY CRYSTAL Sodium Chloride 20 ml 07/05/24 20:47 Central Line Flush IV PUSH PRN PRN after blood draws Vitamin D 2,000 units 07/11/24 09:00 07/14/24 08:43 Cholecalciferol 1,000 Units Tablet PO 2,000 units DAILY CRYSTAL Administration Radiology Results: ITS Impressions Head CT 07/05/24 14:26 IMPRESSION: Cerebral atherosclerosis and proximal vessel ischemic changes of the cerebral white matter No acute intracranial finding or significant change since 01/06/2018 Chest/Abdomen/Pelvis CTA 07/05/24 14:55 IMPRESSION: Left-sided hydroureteronephrosis secondary to a 9 mm stone in the proximal to mid left ureter. No pulmonary embolus. No aortic dissection. 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 Modified Barium Swallow 07/09/24 13:38 IMPRESSION: 1. Laryngeal penetration. 2. Please refer to the speech therapy report for recommendations. Abdomen X-Ray 07/10/24 15:00 IMPRESSION: 14 mm oval-shaped calculus projecting over the pigtail portion of the proximal double-J stent, as detailed above. Chest X-Ray 07/13/24 13:24 IMPRESSION: 1. No acute cardiopulmonary disease. Labs Labs: Laboratory Results - last 24 hr 07/13/24 07/13/24 07/13/24 11:11 11:22 16:19 VBG pH 7.488 H* VBG pCO2 43.2 VBG pO2 30.1 L VBG HCO3 32.0 H O2 Delivery Device Nasal cannula O2 Liters/Min 1.0 FiO2 24 POC Capillary Glucose 173 H 166 H 07/13/24 07/14/24 21:22 08:01 VBG pH VBG pCO2 VBG pO2 VBG HCO3 O2 Delivery Device O2 Liters/Min FiO2 POC Capillary Glucose 151 H 165 H
--- NOTE | 2024-07-14 09:37 | PM.DS ---
DS: Admitting Diagnosis Discharge Date 07/14/24 Admitting Diagnosis (1) Severe sepsis: Code(s): A41.9 - Sepsis, unspecified organism; R65.20 - Severe sepsis without septic shock Status: Acute (2) Acute pyelonephritis: Code(s): N10 - Acute pyelonephritis Status: Acute (3) Hydronephrosis due to obstruction of ureter: Code(s): N13.1 - Hydronephrosis with ureteral stricture, not elsewhere classified Status: Acute (4) Atrial fibrillation: Qualifiers: Atrial fibrillation type: unspecified chronic Qualified Code(s): I48.20 - Chronic atrial fibrillation, unspecified Code(s): I48.91 - Unspecified atrial fibrillation Status: Chronic (5) AMS (altered mental status): Code(s): R41.82 - Altered mental status, unspecified Status: Acute (6) Type 2 diabetes mellitus: Code(s): E11.9 - Type 2 diabetes mellitus without complications Status: Chronic DS: Discharge Diagnosis Discharge Diagnosis (1) Severe sepsis: Code(s): A41.9 - Sepsis, unspecified organism; R65.20 - Severe sepsis without septic shock Status: Acute (2) Acute pyelonephritis: Code(s): N10 - Acute pyelonephritis Status: Acute (3) Hydronephrosis due to obstruction of ureter: Code(s): N13.1 - Hydronephrosis with ureteral stricture, not elsewhere classified Status: Acute (4) Atrial fibrillation: Qualifiers: Atrial fibrillation type: unspecified chronic Qualified Code(s): I48.20 - Chronic atrial fibrillation, unspecified Code(s): I48.91 - Unspecified atrial fibrillation Status: Chronic (5) AMS (altered mental status): Code(s): R41.82 - Altered mental status, unspecified Status: Acute (6) Type 2 diabetes mellitus: Code(s): E11.9 - Type 2 diabetes mellitus without complications Status: Chronic DS: Summary Hospital Course Hospital Course: Carol Gee is a 68 year old female hx afib on anticoagulation, DMII, HTN, aortic aneurysm, hx PE, admitted for abdominal pain and nausea, altered mental status. Patient lives at [facility]. Daughter June Gee at Bedside, said her mom has not feeling well for days, reported nausea. Patient only able to participate minimally. She lifts head and answers some questions intermittently. In the ER she was found to be in Afib with RVR, given 10mg IV diltiazem with some improvement. UA also positive, and treated empirically for a UTI with Zosyn given multiple allergies. Restarted her PO metoprolol and diltiazem for rate control. WBC elevated to 16.7, Creatinine 2.4, lactate 4.4. Flu/Covid/RSV negative. HR intially up to 150's, improving with fluids and beta blockersCT CAP with contrast was done and she was found to have obstructing left renal stone. Urology was consulted and she was taken urgently for a cystoscopy stent placement. Postoperatively she was transferred to ICU The following med issues have been addressed during hospitalization Severe sepsis 07/05: Patient presented from [facility], with lethargy, generalized weakness, altered mental status, was found to have left ureteral stone with hydronephrosis, status post cystoscopy, retrograde pyelogram with stent placement to left proximal ureter. CTA Ch/A/P showing left-sided hydroureteronephrosis secondary to a 9 mm stone in the proximal to mid left ureter. No PE or aortic dissection. 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 Urology consulted and patient underwent cystoscopy, left retrograde pyelogram, left ureteral stent placement 07/05/24. Purulent drainage was seen once the stent was placed. Patient was given adequate amount of IV fluids, Lactic acid was initially elevated which has normalized -patient has not required any pressors at this time as blood pressures have been stable MRSA nasal swab negative. BCx 07/05: e coli Patient was on linezolid and Zosyn, (07/05); discontinue linezolid and started vancomycin 07/06 Creatinine trending down. WBC normal. Old Cx reviewed with most showing E coli and Klebsiella that are nair-sensitive. She did have ESBL EColi in a UCx on 07/28/19. changed Zosyn to Meropenem, stop Vancomycin repeat BCX 07/08 now afebrile. Remove RIJ central line 07/09: Blood culture grows E coli, pansensitive, repeat blood culture 07/08 no growth so far Continue meropenem, patient is allergic to cephalosporin however tolerating IV ceftriaxone Switched to Augmentin. Sepsis resolved AMS (altered mental status): Altered mental status mostly likely secondary to severe sepsis, UTI, pyelonephritis -07/05: CT brain was negative for any acute intracranial abnormality Ammonia <9. TSH normal. Monitor mental status which is improving slowly Seroquel was restarted likely having hypoactive delirium which has been stopped now will also hold BuSpar Bicarbonate 37, follow ABG, need to rule out CO2 retention, patient has obesity VBG pco2 43wnl mental status is inproving on the baseline Acute pyelonephritis: Acute pyelonephritis related to left ureteral stone and hydronephrosis As above Hydronephrosis due to obstruction of ureter: Urology following, status post cystoscopy, retrograde pyelogram, left proximal stent placement on 07/05/2024 Atrial fibrillation: Patient does have a history of AFib on apixaban at home. Patient is also on diltiazem and metoprolol at home -patient had a couple of episodes of AFib RVR which was managed with metoprolol IV -since patient is unable to take oral meds at this time, electronics mechanic started metoprolol IV p.r.n. for tachycardia -electronics mechanic was holding Eliquis given thrombocytopenia Heart rate reasonable so will not schedule IV metoprolol. Resume oral metoprolol and Eliquis Type 2 diabetes mellitus: Accu-Cheks and sliding scale insulin Holding Lantus since patient is not taking p.o. diet Thrombocytopenia - plt count dropped initially, possible due to sepsis Has resolved Patient will be discharged to [facility] today Time Spent with Patient Time attestation: Total time spent providing and/or coordinating discharge services: Exam Narrative: GENERAL: Ill-appearing in no acute distress. Well-nourished. Frail looking - EYES: EOMI. Anicteric. - HENT: Dry mucous membranes. - LUNGS: Clear to auscultation bilaterally, no wheezing, rhonchi, or rales. - CARDIOVASCULAR: Regular rate and rhythm. No murmur. No JVD. - ABDOMEN: Soft, non-tender and non-distended. No palpable masses. - EXTREMITIES: No edema. Peripheral pulses 2+. Non-tender. - NEUROLOGIC: Moving all extremities - PSYCHIATRIC: Alert awake more attentive however slow to respond - SKIN: No rashes or lesions. Warm. - LYMPH: No cervical lymphadenopathy. DS: Data Data Completed and Pending Labs on day of discharge: Labs from last 24 hours 07/14/24 07/13/24 07/13/24 08:01 21:22 16:19 VBG pH VBG pCO2 VBG pO2 VBG HCO3 O2 Delivery Device O2 Liters/Min FiO2 POC Capillary Glucose 165 H 151 H 166 H 07/13/24 07/13/24 11:22 11:11 VBG pH 7.488 H* VBG pCO2 43.2 VBG pO2 30.1 L VBG HCO3 32.0 H O2 Delivery Device Nasal cannula O2 Liters/Min 1.0 FiO2 24 POC Capillary Glucose 173 H Discharge Plan Discharge Attending physician on discharge: Shailesh Caceres Consulting providers: Duy Khan; Aron Dawkins Discharging Clinician: Shailesh Caceres Patient Disposition: SNF Activity: as tolerated Diet: as tolerated and diabetic Patient Language: Hebrew Stand Alone Forms: General Discharge Information Follow-up/Referrals: Hardik Mclaughlin MD [Physician] - Other (Left ureteral stone treatment, stent management. social media marketing specialist to contact patient with appointment date. ) Discharge Medications: New insulin aspart U-100 [Novolog U-100 Insulin aspart] 100 unit/mL Solution 4 unit subcut TIDWM Qty: 10 0RF insulin aspart U-100 [Novolog U-100 Insulin aspart] 100 unit/mL Solution 1 - 3 unit subcut HS Qty: 10 0RF Protocol: Insulin Corrective Moderate-Dose Condition: glucose < 70 mg/dl Dose/Route: Follow hypoglycemia orders Condition: glucose 70-200 mg/dl Dose/Route: No additional insulin Condition: glucose 201-250 mg/dl Dose/Route: 1 units sub-Q Condition: glucose 251-300 mg/dl Dose/Route: 2 units sub-Q Condition: glucose 301-350 mg/dl Dose/Route: 2 units sub-Q Condition: glucose 351-400 mg/dl Dose/Route: 3 units sub-Q Condition: glucose > 400 mg/dl Dose/Route: Call insulin aspart U-100 [Novolog U-100 Insulin aspart] 100 unit/mL Solution 3 - 6 unit subcut TIDWM Qty: 10 0RF Protocol: Insulin Corrective Moderate-Dose Condition: glucose < 70 mg/dl Dose/Route: Follow hypoglycemia orders Condition: glucose 70-200 mg/dl Dose/Route: No additional insulin Condition: glucose 201-250 mg/dl Dose/Route: 3 units sub-Q Condition: glucose 251-300 mg/dl Dose/Route: 4 units sub-Q Condition: glucose 301-350 mg/dl Dose/Route: 5 units sub-Q Condition: glucose 351-400 mg/dl Dose/Route: 6 units sub-Q Condition: glucose > 400 mg/dl Dose/Route: Call MD Protocol Text: *No Correction Dose at Bedtime* amoxicillin-pot clavulanate 875-125 mg tablet 1 tablet PO Q12H Qty: 10 0RF insulin glargine [Lantus U-100 Insulin] 100 unit/mL Solution 12 unit subcut DAILY Qty: 10 0RF Continued diltiazem HCl 120 mg capsule,extended release 24 hr 120 mg PO DAILY metoprolol succinate 25 mg tablet extended release 24 hr 25 mg PO DAILY cholecalciferol (vitamin D3) 10 mcg (400 unit) capsule 2,000 unit PO DAILY (DME) spirometers and accessories Device See Rx Instructions .Route Qty: 1 0RF Rx Instructions: As directed Eliquis 5 mg tablet 5 mg PO BID buspirone 30 mg tablet 30 mg PO BID Qty: 1 0RF quetiapine 300 mg tablet 300 mg PO QHS Qty: 1 0RF aspirin 81 mg tablet,delayed release (DR/EC) 81 mg PO DAILY (DME) lancets Misc See Rx Instructions .Route Qty: 200 1RF Rx Instructions: TID polyethylene glycol 3350 [Miralax] 17 gram/dose powder 17 g PO DAILY 30 Days Qty: 510 0RF acetaminophen 650 mg Tablet 650 mg PO Q6H MDD pain PRN (Reason: y) tramadol 50 mg Tablet 50 mg PO Q6H PRN (Reason: pain 4-6) Qty: 20 0RF docusate sodium 100 mg tablet 100 mg PO DAILY PRN (Reason: constipation) bisacodyl [Dulcolax (bisacodyl)] 10 mg suppository 10 mg RECTAL HS PRN (Reason: constipation) Rx Instructions: If no BM x1 day ondansetron 4 mg tablet,disintegrating 4 mg PO Q8H PRN (Reason: nausea) escitalopram oxalate 20 mg tablet 20 mg PO DAILY Qty: 30 0RF (DME) blood-glucose meter [Zaelabuch Ultra2 Meter] Misc See Rx Instructions .Route Qty: 1 0RF Rx Instructions: Use meter to test blood sugar 3 times a day levothyroxine [Euthyrox] 150 mcg tablet 150 mcg PO DAILY Qty: 90 1RF magnesium oxide 400 mg (241.3 mg magnesium) tablet 800 mg PO DAILY Qty: 180 1RF Rx Instructions: Take 2 tablets by mouth daily (DME) OneTouch Ultra Test Strip See Rx Instructions .ROUTE .COMPLEX Qty: 100 0RF Dose Instruction: USE STRIP TO CHECK GLUCOSE THREE TIMES DAILY Rx Instructions: USE STRIP TO CHECK GLUCOSE THREE TIMES DAILY (DME) pen needle, diabetic [TRUEplus Pen Needle] 31 gauge x 5/16 needle See Rx Instructions .ROUTE .COMPLEX Qty: 100 0RF Dose Instruction: USE DIRECTED TWICE DAILY FOR BLOOD SUGAR Rx Instructions: USE DIRECTED TWICE DAILY FOR BLOOD SUGAR Discontinued insulin degludec [Tresiba FlexTouch U-100] 100 unit/mL (3 mL) insulin pen 27 unit subcut DAILY Rx Instructions: Inject 27 units subcutaneously every day at breakfast risperidone 1 mg tablet 1.5 mg PO BID quetiapine 50 mg tablet 50 mg PO DAILY Qty: 1 0RF acetaminophen [Tylenol] 325 mg tablet 650 mg PO BID Patient Comments: With meals Date of admission: 07/05/24 17:33 Primary Care Provider: Jhoana Masters Admitting Provider: José Manuel Graham Attending physician on admission: José Manuel Graham Condition: Stable
[2024-07-14 09:55] LABS: Hematocrit 31.9 % (37.0-47.0); Mean Corpuscular HGB Conc 31.3 g/dl (32-36); Mean Corpuscular Hemoglobin 23.9 pg (26-34); Mean Corpuscular Volume 76.3 fl (80-100); Mean Platelet Volume 11.2 fl (7.4-10.4); Platelet Count Result 340 k/mm3 (150-375); Red Blood Count 4.18 M/mm3 (4.2-5.4); White Blood Count 13.7 K/mm3 (4.5-10.0)
[2024-07-14 10:56] LABS: Anion Gap 4 mmol/L (4-12); Blood Urea Nitrogen 9 mg/dL (7-17); Calcium 9.2 mg/dL (8.4-10.2); Carbon Dioxide 31 mmol/L (22-30); Chloride 97 mmol/L (98-107); Estimated CRCL calculation 76 ml/min; Estimated Glomerular Filt Rate > 60; Glucose 177 mg/dL (65-110); Potassium 3.7 mmol/L (3.4-5.0); Sodium 132 mmol/L (137-145)
[2024-07-14 11:32] LABS: Glucose Point of Care 185 mg/dl (65-105)
[2024-07-14 14:00] VITALS: BP 143/88; PULSE 72; RESP 18; TEMP 36.5; O2SAT 100
[2024-07-14 16:34] LABS: SARS-CoV-2 RNA PCR Negative (Negative)
[2024-07-14 16:41] LABS: Glucose Point of Care 148 mg/dl (65-105)
== END 2024-07-14 17:05 | DRG 854 ==
LOC: ANHED 13:41 → ANHIMU 14:20 → ANHICU 18:33 → ANHIMU 07-07 23:10 → ANH3MEDSUR 07-10 16:27 → ANHIMU 07-15 09:48
PROVIDERS: Internal Medicine; Nurse Practitioner Acute Care; Urology; Admitting Provider General Practice; Emergency Provider Emergency Medicine; PCP Nurse Practitioner Family; Visit Provider Hospitalist
PROC: 0T778DZ Dilation of Left Ureter with Intraluminal Device, Via Natural or Artificial Opening Endoscopic (ICD-10-PCS; CPT 52352; principal; 2024-07-05 17:15)
PROC: 0T778DZ Dilation of Left Ureter with Intraluminal Device, Via Natural or Artificial Opening Endoscopic (ICD-10-PCS; 2024-07-05 17:15)
DX: A41.51 Sepsis due to Escherichia coli [E. coli] (principal); I48.20 Chronic atrial fibrillation, unspecified; N17.9 Acute kidney failure, unspecified; N13.6 Pyonephrosis; R65.20 Severe sepsis without septic shock; B96.20 Unspecified Escherichia coli [E. coli] as the cause of diseases classified elsewhere; D69.6 Thrombocytopenia, unspecified; E78.5 Hyperlipidemia, unspecified; E03.9 Hypothyroidism, unspecified; E55.9 Vitamin D deficiency, unspecified; E11.22 Type 2 diabetes mellitus with diabetic chronic kidney disease; G47.33 Obstructive sleep apnea (adult) (pediatric); I12.9 Hypertensive chronic kidney disease with stage 1 through stage 4 chronic kidney disease, or unspecified chronic kidney disease; N18.9 Chronic kidney disease, unspecified; Z99.89 Dependence on other enabling machines and devices; Z79.01 Long term (current) use of anticoagulants; Z11.52 Encounter for screening for COVID-19; Z20.822 Contact with and (suspected) exposure to COVID-19; Z79.82 Long term (current) use of aspirin; Z79.4 Long term (current) use of insulin; Z86.711 Personal history of pulmonary embolism
CPT/HCPCS: 36415; 70450; 71045; 71275; 74018; 74177; 74420; 80048; 80053; 80202; 81001; 82140; 82803; 82948; 83605; 83735; 83880; 84100; 84443; 84484; 85025; 85027; 85055; 85610; 85652; 85730; 86140; 87040; 87086; 87186; 87635; 87637; 87641; 92526; 92610; 92611; 93005; 93306; 96361; 96365; 96375; 97110; 97116; 97161; 97165; 97530; 97535; 99285; A9270; C1751; C1769; C2617; G0378; J0696; J1815; J1940; J2020; J2185; J2250; J2270; J2470; J2543; J3010; J3370; J3475; J7030; Q9957; Q9967

== ENCOUNTER 2024-07-24 02:34 | Day surgery (SDC) | payer MEDICARE, MEDICAID, SELFPAY ==
--- NOTE | 2024-07-15 17:10 | P.HP_ITS ---
History of Present Illness History of Present Illness Consent: Risks, benefits, and alternatives have been discussed and questions answered. Patient agrees to proceed with procedure. Chief complaint: Left Kidney Stone Narrative: Carol Gee is a 68 year old female who was admitted a couple weeks ago with a septic obstructing 14 mm left UPJ renal calculus. Dr. Khan placed a left ureteral stent. After thorough management of her urinary tract infection she now presents for left ESWL. Alternative options have been discussed, particularly ureteroscopy with laser lithotripsy. She is aware of the risk of ESWL including, but not limited to, adverse cardiopulmonary events, hematuria, perinephric hematoma and need for additional procedures Review of Systems Review of Systems: All systems reviewed & are unremarkable except as noted in HPI and below PMFSH Past Medical History Medical History ALIVIA (obstructive sleep apnea) Sepsis Chronic kidney disease Depression Obstructive sleep apnea treated with BiPAP Psoriasis Type 2 diabetes mellitus Hyperlipidemia COVID-19 Spinal stenosis Ascending aortic aneurysm Atrial fibrillation No longer on anticoagulation as of fall 2022 due to history of falls. Hypothyroidism Kidney stone Psoriatic arthritis Vitamin D deficiency Essential (primary) hypertension Surgical History Surgical History History of hysterectomy History of bunionectomy Family History Family History Sibling Family history of respiratory disorder Family history of diabetes mellitus in first degree relative Family history of congestive heart failure Acute myocardial infarction Mother Family history of chronic obstructive pulmonary disease Family history of congestive heart failure Father Acute myocardial infarction Other Family history of arthritis Family history of malignant neoplasm Family history of mental disorder Hypertension Social History Social History Social History: Surrogate medical decision maker: June Gee or Sienna Roy, daughters. Code status: Full code. Smoking status: Never smoker Second hand tobacco smoke exposure: Yes Alcohol intake: never Substance use: never Substance use type: does not use Do You Feel Safe in your Home?: Yes Lack of Transportation: No Lack of Food: Never True Current Housing: I Have Housing Concerned About Future Housing: No Difficulty Paying Gas/Electric Bills: No Difficulty Paying for Meds: No Currently Unemployed: No Education: High School Diploma/GED Difficulty w/ Childcare or Family Care: No Additional living arrangements comments: The patient lives in her own home in [place]. Spiritual care concerns: No Meds Home Medications and Allergies Home Medications ?Medication ?Instructions ?Recorded ?Confirmed ?Type diltiazem HCl 120 mg capsule,24 120 mg PO DAILY 06/29/19 07/06/24 History hr,extended release metoprolol succinate 25 mg 25 mg PO DAILY 01/25/21 07/06/24 History tablet,extended release 24 hr escitalopram oxalate 20 mg tablet 20 mg PO DAILY #30 tabs 03/28/21 07/06/24 Rx blood-glucose meter (OneTouch #1 ea 01/04/22 07/06/24 Rx Ultra2 Meter) spirometers and accessories #1 ea 02/20/22 07/06/24 Rx aspirin 81 mg tablet,delayed 81 mg PO DAILY 08/20/22 07/06/24 History release buspirone 30 mg tablet 30 mg PO BID #1 tablet 10/02/22 07/06/24 Rx quetiapine 300 mg tablet 300 mg PO QHS #1 tablet 10/02/22 07/06/24 Rx cholecalciferol (vitamin D3) 10 2,000 unit PO DAILY 12/17/22 07/06/24 History mcg (400 unit) capsule lancets #200 ea 12/17/22 07/06/24 Rx polyethylene glycol 3350 17 17 g PO DAILY 1 month #510 grams 05/21/23 07/06/24 Rx gram/dose oral powder (Miralax) levothyroxine 150 mcg tablet 150 mcg PO DAILY #90 tabs 08/29/23 07/06/24 Rx (Euthyrox) magnesium oxide 400 mg (241.3 mg 800 mg (2 x 400 mg (241.3 mg 09/30/23 07/06/24 Rx magnesium) tablet magnesium)) PO DAILY #180 tabs blood sugar diagnostic (OneTouch #100 ea 02/17/24 07/06/24 Rx Ultra Test strips) pen needle, diabetic 31 gauge x #100 ea 03/23/24 07/06/24 Rx 5/16 (TRUEplus Pen Needle) apixaban 5 mg tablet (Eliquis) 5 mg PO BID 03/27/24 07/06/24 History acetaminophen 650 mg tablet 650 mg PO Q6H PRN y 03/30/24 07/06/24 History tramadol 50 mg tablet 50 mg PO Q6H PRN pain 4-6 #20 tabs 04/03/24 07/06/24 Rx bisacodyl 10 mg rectal suppository 10 mg RECTAL HS PRN constipation 07/06/24 07/06/24 History (Dulcolax (bisacodyl)) docusate sodium 100 mg tablet 100 mg PO DAILY PRN constipation 07/06/24 07/06/24 History ondansetron 4 mg disintegrating 4 mg PO Q8H PRN nausea 07/06/24 07/06/24 History tablet amoxicillin 875 mg-potassium 1 tablet PO Q12H #10 tabs 07/14/24 Rx clavulanate 125 mg tablet insulin aspart U-100 100 unit/mL 1 - 3 unit subcut HS #10 mL 07/14/24 Rx subcutaneous solution (Novolog U-100 Insulin aspart) insulin aspart U-100 100 unit/mL 3 - 6 unit subcut TIDWM #10 mL 07/14/24 Rx subcutaneous solution (Novolog U-100 Insulin aspart) insulin aspart U-100 100 unit/mL 4 unit (0.04 mL) subcut TIDWM #10 07/14/24 Rx subcutaneous solution (Novolog mL U-100 Insulin aspart) insulin glargine 100 unit/mL 12 unit (0.12 mL) subcut DAILY #10 07/14/24 Rx subcutaneous solution (Lantus mL U-100 Insulin) Allergies Allergy/AdvReac Type Severity Reaction Status Date / Time Cephalosporins Allergy Unknown Hives Verified 07/05/24 17:07 ciprofloxacin Allergy Unknown Hives Verified 07/05/24 17:07 codeine Allergy Unknown Hives Verified 07/05/24 17:07 erythromycin base Allergy Unknown Hives Verified 07/05/24 17:07 levofloxacin Allergy Unknown Hives Verified 07/05/24 17:07 lidocaine Allergy Unknown Hives Verified 07/05/24 17:07 Macrolide Antibiotics Allergy Unknown Hives Verified 07/05/24 17:07 Quinolones Allergy Unknown Hives Verified 07/05/24 17:07 Sulfa (Sulfonamide Allergy Unknown Hives Verified 07/05/24 17:07 Antibiotics) theophylline Allergy Unknown Hives Verified 07/05/24 17:07 citalopram AdvReac Unknown Agitated Verified 07/05/24 17:07 ALL ASHLEY DRUGS Allergy Mild ITCHING, Uncoded 07/05/24 17:07 BURNING, SWELLING AT SITE Exam Const: General: no acute distress Resp: Effort & Inspection: normal respiratory effort GI: Inspection: non-distended GI Palp: No abdominal tenderness and No Guarding due to palpation present (GI) Auscultation: normal bowel sounds Assessment and Plan Assessment and plan (1) Calculus of proximal left ureter: Code(s): N20.1 - Calculus of ureter Status: Acute Assessment and Plan: * Left ESWL
[2024-07-16 15:01] VITALS: BMI 32.6
--- NOTE | 2024-07-16 15:12 | PC.NURSE ---
Report to the Outpatient Waiting Room, entrance under the green pavilion located off [facility], at time ___0930am____ on date _07/24/24 . Planned Procedure Time: __11:30am .? Time changes happen often and if your time is changed the preop area will call you the afternoon before. - You and your visitor will be asked to self-screen and do not enter if you have any COVID symptoms. Please call surgeon if you need to reschedule. - A mask is optional within the hospital at this time. Pt Needs to have a Urine Culture and PT/PTT labs done kan and be faxed to our office at [phone] as discussed w Veronica at [facility]- she will fax back results as soon as needed. Patients may have clear liquids (water, carbonated beverages, clear teas, apple juice) until 3 hours prior to surgery with a maximum of 20 ounces. - No food from midnight until time of surgery and no smoking. This includes no chewing gum, candy or mints. (0830am) Take only the following medications with a SIP of water on the morning of surgery: ____Metoprolol, Levothyroxine, Buspirone, Excitalopram, Tylenol if needed,Tramadol if needed DO NOT STOP ANY OF YOUR OTHER PRESCRIPTION MEDICATIONS PRIOR TO SURGERY EXCEPT THE FOLLOWING Medications to discontinue per physician *HOLD ASPIRIN for 7 days prior to surgery per Dr Mclaughlin. Date to take last dose is 07/16/24 * HOLD ELIQUIS FOR [address] Mclaughlin. Date to take last dose is 07/20/24 Hold all vitamins and supplements for 3 days prior to surgery per Anesthesia. Date to take last dose__07/20/24 Please no make-up, nail spanish, hairspray, perfume, deodorant, or body powder the day of surgery.? No jewelry (including any body piercings) or valuables the day of surgery, leave them at home.? Please take a shower or bath the night before, or the morning of, surgery with an antibacterial soap.? Wear comfortable, loose fitting clothing.? Children are encouraged to wear pajamas. - Jewelry must be removed prior to entering the operating room.? Rings and piercings that are not removed may be cut off. - The hospital will not accept responsibility for valuables.? - Please leave all valuables, including medications, at home the day of surgery. If you are going home after surgery, a licensed tractor driver teamster must drive you home.? - NO public transportation without another adult if you receive anesthesia. - We recommend that an adult stay with you for 24 hours following discharge. - We also recommend that you do not drive, make important decision, drink alcoholic beverages, or take any drugs that were not prescribed by your health care provider for at least 24 hours after your discharge time. Follow any additional instructions given to you from your surgeon. written & telephone instructions given to ___Veronica at [facility] and asked if any additional questions and then verbalized understanding. Patient advised to call surgeon office or pre surgery nurse liaison [phone] if any additional questions.
[2024-07-24] VITALS (9 sets, daily range): BP systolic 123–146; BP diastolic 72–85; PULSE 61–76; RESP 12–20; TEMP 36.5–36.7; O2SAT 94–100
--- NOTE | ~2024-07-24 | XR_ITS ---
EXAMINATION: XR abdomen/kub 1V DATE: 07/24/2024 09:17 INDICATION: Left kidney stone. TECHNIQUE: A supine view of the abdomen on 2 radiographs was obtained. COMPARISON: Abdomen radiographs 07/10/2024, CT 07/05/2024 FINDINGS: There are no dilated loops of bowel. There is a large volume of stool in the colon. Surgica l clips in the right upper quadrant are likely from cholecystectomy. There is a left internal uretera l stent in expected position. There is a 13 mm stone in left kidney. IMPRESSION: 1. 13 mm stone in left kidney. 2. Left internal ureteral stent in expected position. Reviewed, dictated and finalized at location B. ITAL ADMINISTRATOR
--- OUTSIDE RECORDS SUMMARY | 2024-07-24 06:29 | XMS_ITS | Data Portability ---
Author Organization [place] - [facility] OFFICE Address [address] [place] [address] Care Team Providers Care Boat Assembler Name Role Phone KUWLINDER BENSON Primary Care Provider [phone] Assessment Encounter Date Assessment Date Assessment LastModified by Organization Details LastModified Time 11/01/2021 11/01/2021 Discussed with patient findings, diagnosis, and prognosis. Discussed evaluation and treatment options including risks and benefits with patient, and patient expressed understanding. The following interventions were recommended: heart healthy low-fat, low-sodium diet, continue regular exercise, maintain appropriate weight, continue current medications, and medical follow-up as noted. [email or web address] Not available 11/01/2021 12:15:18 01/03/2022 01/03/2022 Discussed [...] current medications, and medical follow-up as noted. [email or web address] Not available 02/14/2022 16:02:12 07/18/2022 07/18/2022 Discussed with patient findings, diagnosis, and prognosis. Discussed evaluation and treatment options including risks and benefits with patient, and patient expressed understanding. The following interventions were recommended: heart healthy low-fat, low-sodium diet, continue regular exercise,maintain appropriate weight, continue current medications, and medical follow-up as noted. [email or web address] Not available 07/18/2022 15:58:18 11/14/2022 11/14/2022 Discussed with patient findings, diagnosis, and prognosis. Discussed evaluation and treatment options including risks and benefits with patient, and patient expressed understanding. The following interventions were recommended: heart healthy low-fat, low-sodium diet, continue regular exercise,maintain appropriate weight, continue current medications, and medical follow-up as noted. [email or web address] Not available 11/14/2022 14:46:24 Plan of Treatment Reminders Order Date Submit Date Provider Last Modified By Organization Details Last Modified Time Details Appointments None recorded. Lab None recorded. Referral None recorded. Procedures None recorded. Surgeries None recorded. Imaging None recorded. Medication Orders icosapent ethyl 1 gram capsule [address] [place], [address], 3 14:59:33 furosemide 20 mg tablet [address] [place], [address], 2 16:27:22 potassium chloride ER 10 mEq tablet,exte nded release [address] [place], [address], 3 15:56:08 furosemide 40 mg tablet [address] [place], [address], 3 15:11:23 aspirin 81 mg tablet,brooklyn yed release 2022 023 [email or web address] [facility] [address] [facility], [place], [address], 3 11:32:36 pravastatin 40 mg tablet 2022 023 [facility] [address] , [place], [address], 15:16:09 Patient TargetsNo targets recorded. Patient Instructions Encounter Date Encounter Id Patient Instructions Last Modified By Organization Details Last Modified Time 11/01/2021 [id number] learning about type 2 diabetes [email or web address] Not available 11/01/2021 12:27:21 type 2 diabetes: care instructions [email or web address] Not available 11/01/2021 12:27:21 high cholesterol : care instructions [email or web address] Not available 11/01/2021 12:27:20 learning about low-fat eating [email or web address] Not available 11/01/2021 12:27:21 chronic obstructive pulmonary disease (COPD): care instructions [email or web address] Not available 11/01/2021 12:27:21 learning about copd and how to prevent lung infections [email or web address] Not available 11/01/2021 12:27:21 When You Want to Lose Weight: Care Instructions Not available 11/01/2021 12:27:21 sleep apnea: car e instructions [email or web address] Not available 11/01/2021 12:27:20 atrial fibrillation: care instructions [email or web address] Not available 11/01/2021 12:27:20 hypothyroidism: care instructions Not available 11/01/2021 12:27:21 01/03/2022 [id number] learning about type 2 diabetes [email or web address] Not available 01/03/2022 18:04:53 type 2 diabetes: care instructions [email or web address] Not available 01/03/2022 18:04:53 high cholesterol : care instructions Not available 01/03/2022 18:04:53 learning about low-fat eating [email or web address] Not available 01/03/2022 18:04:53 chronic obstructive pulmonary disease (COPD): care instructions [email or web address] Not available 01/03/2022 18:04:53 learning about copd and how to prevent lung infections [email or web address] Not available 01/03/2022 18:04:53 When You Want to Lose Weight: Care Instructions [email or web address] Not available 01/03/2022 18:04:53 leg and ankle edema: care instructions [email or web address] Not available 01/03/2022 18:04:53 sleep apnea: car e instructions aspttgw29 Not available 01/03/2022 18:04:53 atrial fibrillation: care instructions [email or web address] Not available 01/03/2022 18:04:52 hypothyroidism: care instructions [email or web address] Not available 01/03/2022 18:04:53 02/14/2022 [id number] learning about type 2 diabetes [email or web address] Not available 02/14/2022 16:38:13 type 2 diabetes: care instructions [email or web address] Not available 02/14/2022 16:38:13 high cholesterol : care instructions eeslhnx09 Not available 02/14/2022 16:38:13 learning about low-fat eating Not available 02/14/2022 16:38:13 chronic obstructive pulmonary disease (COPD): care instructions [email or web address] Not available 02/14/2022 16:38:14 learning about copd and how to prevent lung infections [email or web address] Not available 02/14/2022 16:38:13 When You Want to Lose Weight: Care Instructions [email or web address] Not available 02/14/2022 16:38:13 leg and ankle edema: care instructions [email or web address] Not available 02/14/2022 16:38:13 sleep apnea: car e instructions [email or web address] Not available 02/14/2022 16:38:13 atrial fibrillation: care instructions [email or web address] Not available 02/14/2022 16:38:14 hypothyroidism: care instructions [email or web address] Not available 02/14/2022 16:38:13 07/18/2022 [id number] learning about type 2 diabetes [email or web address] Not available 07/18/2022 16:12:12 type 2 diabetes: care instructions [email or web address] Not available 07/18/2022 16:12:12 high cholesterol : care instructions [email or web address] Not available 07/18/2022 16:12:12 learning about low-fat eating [email or web address] Not available 07/18/2022 16:12:12 chronic obstructive pulmonary disease (COPD): care instructions efukujx91 Not available 07/18/2022 16:12:12 learning about copd and how to prevent lung infections [email or web address] Not available 07/18/2022 16:12:12 When You Want to Lose Weight: Care Instructions [email or web address] Not available 07/18/2022 16:12:12 leg and ankle edema: care instructions Not available 07/18/2022 16:12:12 sleep apnea: car e instructions [email or web address] Not available 07/18/2022 16:12:12 atrial fibrillation: care instructions Not available 07/18/2022 16:12:12 hypothyroidism: care instructions [email or web address] Not available 07/18/2022 16:12:12 11/14/2022 [id number] learning about type 2 diabetes Not available 11/14/2022 15:16:03 type 2 diabetes: care instructions Not available 11/14/2022 15:16:03 high cholesterol : care instructions [email or web address] Not available 11/14/2022 15:16:03 learning about low-fat eating [email or web address] Not available 11/14/2022 15:16:03 chronic obstructive pulmonary disease (COPD): care instructions [email or web address] Not available 11/14/2022 15:16:03 learning about copd and how to prevent lung infections Not available 11/14/2022 15:16:03 When You Want to Lose Weight: Care Instructions [email or web address] Not available 11/14/2022 15:16:04 leg and ankle edema: care instructions [email or web address] Not available 11/14/2022 15:16:03 sleep apnea: car e instructions [email or web address] Not available 11/14/2022 15:16:03 atrial fibrillation: care instructions [email or web address] Not available 11/14/2022 15:16:03 hypothyroidism: care instructions [email or web address] Not available 11/14/2022 15:16:04 Reason for Referral [...] ation record ed. [facility] [address], [place], [address], 02/13/2022 14:57:12 02/14/20 22 02/07/2022 US, echoc [...] Organization Details Recorded Time Coronary arterioscle rosis 63167072 Active 2020 Cardiac cath Mar 2021 25-50% shira saenz lve [place] - [facility] 1 18:35:37 Heart failure with normal ejection fraction 390456514 Active 2021 Franco Lopes [place] [facility] 2 14:54:17 Edema of lower extremity 333809265 Active 2021 Franco Lopes [place], [place] - [facility] 2 18:04:31 Atrial fibrillatio n 78232575 Active 2016 Sourav [place] [facility] 7 14:07:42 Benign essential hypertensio n 3724055 Active 2016 Sou[place] [facility] 7 14:07:54 Aortic aneurysm 69675235 Active 2016 Sou[place] [facility] 7 14:08:06 Hypothyroid ism 08443087 Active 2016 Sou[place] [facility] 7 14:08:21 Type 2 diabetes mellitus 91664424 Active 2016 Sou[place] [facility] 7 14:08:37 Chronic obstructive pulmonary disease 16208390 Active 2016 Sou[place] [facility] 7 14:08:53 Obstructive sleep apnea syndrome 85575582 Active 2016 Sou[place] [facility] 7 14:09:07 Obesity 501889718 Active 2016 Sou[place] [facility] 7 14:09:43 Bipolar disorder 72038706 Active 2016 Sou[place] [facility] 7 14:09:53 Psoriatic arthritis 447969014 Active 2016 Sou[place] [facility] 7 14:10:13 Asthma 775876814 Active 2016 Gina [place] [facility] 7 11:48:21 Degeneratio n of interverteb ral disc 05834283 Active 2016 Gina [place] [facility] 7 11:48:48 Depressive disorder 37882549 Active 2016 Gina sinha, [place] - [facility] 7 11:48:59 Dyspnea 750025277 [facility] 7 11:51:25 Edema 891343480 Active 2016 [facility] 7 11:51:31 Rectal hemorrhage 74155453 Active 2016 [facility] 7 11:52:02 Congestive heart failure 66824807 Active 2016 [facility] 7 13:45:14 Urine culture - Proteus 364624048 Active 2016 Franco Lopes [facility] 7 13:19:17 Hypercalcem ia 81382905 Active 2017 Franco Lopes [facility] 8 11:49:10 Pain in right lower limb 197308226 Active 2017 Franco Lopes [facility] 8 16:22:02 Hyperlipide javed 69099540 Active 2017 Franco Lopes [facility] 8 16:55:36 Dyspnea on exertion 73940539 Active 2020 Franco Lopes [facility] 1 15:58:43 Problem Notes None recorded. Procedures Surgical History Date Name Laterality Status Provider Name and Address Organization Details Recorded Time Unlisted px foot/toes completed [facility] 06/03/2017 11:50:41 Hysterectomy completed [facility] 06/03/2017 11:50:47 Hernia Repair completed [facility] 06/03/2017 11:50:52 Cholecystectomy completed [facility] 06/03/2017 11:50:57 Imaging Results Imaging Date Name Status LastModified by Organization Details LastModified Time 12/06/2021 CT, angiogram, chest, w/ contrast completed Information not available 12/18/2021 11:41:59 01/03/2022 electrocardiogram completed Informa tion not available 01/04/2022 10:23:29 01/19/2022 US, doppler, venous completed Infor mation not available 01/24/2022 11:40:39 02/07/2022 US, echocardiogram completed [facility] [address], [place], [address], 02/13/2022 14:57:12 02/07/2022 US, echocardiogram completed Inform [...] Not available 05/31/2017 4053 RxNorm Sourav Diaz [facility], [facility] 7 14:15:15 5537 levofloxa ricci medicatio n Not available Not available Not available 05/31/2017 47227 RxNorm Sourav Diaz [facility], [facility] 7 14:15:25 5538 Substance with sulfonami de structure and antibacte rial mechanism of action (substanc e) medicatio n Not available Not available Not available 05/31/2017 09844 8003 SNOMED Sourav Diaz [facility], [facility] 7 14:15:33 5539 theophyll ine medicatio n Not available Not available Not available 05/31/2017 71383 RxNorm Sourav Diaz [facility] 7 14:16:31 Medications Name Sig Start Date [...] 06/21 completed Patient to stop Vit D. 066079Bb yahaira to call pt [id number]. Not Available Not Available Not Available hydrocort [...] Not Available No t Available Vitamin D3 30609 1 q week for 8 weeks 09/12 [...] No t Available Lite Touch Insulin Pen [place] 31 gauge x 09/13 completed Not Available [...] Not Available No t Available Fluarix Quad 9058-8892 (PF) 60 mcg (15 mcg x 4)/0.5 [...] Updated DateTime 2 172.72 cm 49 kg/m2 965098. 74 g 88 /min 94 % 94 % 142 mm[Hg] 82 mm[Hg] Joycelyn Robbins [facility] 2 11:28:43 Date Recorded Body height Body mass index (BMI) Body weight Heart rate Oxygen saturation Oxygen saturation in Arterial blood by Pulse oximetry Systolic blood pressure Diastolic blood pressure Provider Name and Address Organization Details Last Updated DateTime 2 172.72 cm 50.9 kg/m2 717550. 44 g 95 /min 94 % 94 % 148 mm[Hg] 82 mm[Hg] Cali Pandey [facility] 2 15:50:44 Date Recorded Body height Body mass index (BMI) Body weight Heart rate Respiratory rate Oxygen saturation Oxygen saturation in Arterial blood by Pulse oximetry Inhaled oxygen flow rate Systolic blood pressure Diastolic blood pressure Provider Name and Address Organization Details Last Updated DateTime 2 172.72 cm 50.8 kg/m2 189626. 85 g 102 /min 16 /min 91 % 91 % 2 L/min 132 mm[Hg] 68 mm[Hg] Cali Pandey [facility] 2 15:24:30 Date Recorded Body height Body mass index (BMI) Body weight Heart rate Respiratory rate Oxygen saturation Oxygen saturation in Arterial blood by Pulse oximetry Systolic blood pressure Diastolic blood pressure Provider Name and Address Organization Details Last Updated DateTime 3 172.72 cm 48.4 kg/m2 407786. 37 g 88 /min 16 /min 93 % 93 % 132 mm[Hg] 82 mm[Hg] Cali Pandey [facility] 3 14:39:23 Date Recorded Body height Body mass index (BMI) Body weight Oxygen saturation Oxygen saturation in Arterial blood by Pulse oximetry Heart rate Systolic blood pressure Diastolic blood pressure Provider Name and Address Organization Details Last Updated DateTime 3 172.72 cm 43.7 kg/m2 475470. 52 g 92 % 92 % 78 /min 122 mm[Hg] 84 mm[Hg] TAMMY VISHAL [facility] 3 14:22:56 Social History Question Answer Notes LastModified by Organizat ion Details LastModified Time Tobacco Smoking Status Never Smoker Second hand smoker Not Available [facility] 05/03/2020 03:30:41 What Is Your Level Of Alcohol Consumption? None [id number] Information not available 05/03/2020 What Is Your Level Of Caffeine Consumption? Occasional [id number] Information not available 05/03/2020 How Much Tobacco Do You Chew? None [id number] Information not available 05/03/2020 What Type Of Diet Are You Following? DIABETIC [id number] Information not available 05/03/2020 Which Illicit Or Recreational Drugs Have You Used? No [id number] Information not available 05/03/2020 Do You Or Have You Ever Used E-cigarettes Or Vape? Never Used Electronic Cigarettes [id number] Information not available 05/03/2020 Live Alone Or With Others? Alone [email or web address] Information not available 06/03/2017 Marital Status [email or web address] Informatio n not available 06/03/2017 What Was The Date Of Your Most Recent Tobacco Screening? 12/08/2018 [id number] Information not available 05/03/2020 How Many Children Do You Have? 3 [id number] Information not available 05/03/2020 Do You Or Have You Ever Used Smokeless Tobacco? Never Used Smokeless Tobacco [id number] Information not available 05/03/2020 How Much Tobacco Do You Smoke? No [id number] Information not available 05/03/2020 General Stress Level Low [email or web address] Information not available 06/03/2017 How Many Years Have You Smoked Tobacco? 0 [id number] Information not available 05/03/2020 Sex: Unknown Functional Status Question Answer Note LastModified by Organization D etails LastModified Time What is your exercise level? None [id number] Information not available 05/03/2020 Mental Status None recorded. Family History Relationship Description Onset Age of this Age Resolved Age Notes LastModified by Organization Details LastModified Time Father Intracranial aneurysm [email or web address] Not available 2016 14:12:50 Father Heart disease [email or web address] Not available 2016 11:49:19 Father Myocardial infarction [email or web address] Not available 06/03 11:49:24 Mother Diabetes mellitus [email or web address] Not available 2016 11:49:36 Sister Diabetes mellitus [email or web address] Not available 2016 11:49:36 Sister Hypercholest erolemia [email or web address] Not available 2016 11:49:45 Medical History Condition Response Diabetes Y Atrial Fibrillation Y Thyroid Disease Y Sleep Apnea Y Aortic Aneurysm Y Hypertension Y COPD Y Gynecological HistoryNo gynecological history recorded. Obstetrics History GPAL:G 0 P 0 0 0 0 Past Encounters Encounter ID Performer Location Encounter Start Date Encounter Closed Date Diagnosis/Indication Diagnosis SNOMED-CT Code Diagnosis ICD10 Code Diagnosis Note [id number] Franco Lopes [place] [facility] [address] [place] [address] 06/03/2017 11:08:04 06/04/2017 10:26:41 Benign essential hypertension 5344114 I10 Patient's blood pressure is {{well-con trolled* [...] less daily). Type 2 eliazar betes mellitus 05578664 E11.59 Discussed importance of tight glycemic control to minimize cardiovasc ular disease progressio n. Atrial fibrillation 4943 6004 I48.91 EKG today with atrial fibrillati on with HR 93 bpm. Needs eventual outpatient Lexiscan to exclude ischemia as cause of afib. Resume Coumadin 2 mg qHS. Pt to call if bleeding resumes. INR in 4 days. Aortic aneurysm 07038592 I71.[address] Obstructiv e sleep apnea syndrome 85816147 G47.33 On CPAP. Congestive heart failure 77535583 I50.9 Pt with HF-pEF. Pt reports increased B LE edema since discharge and had increased to Lasix 40 mg bid 05/31/17. Increased from 40 mg bid to 80 mg bid and added metolazone 2.5 mg qd. 06/03/17. BMP 4 days. RTC 1 wk. [id number] Franco Lopes [place] [facility] [address] [place] [address] 06/17/2017 10:39:30 06/17/2017 16:07:22 Benign essential hypertension 4928850 I10 Patient's blood pressure is {{well-con trolled* [...] untill digoxin level assessed. Congestive heart failure 69240796 I50.9 Pt with HF-pEF. Currently euvolemic. Pt [...] 1 week. Type 2 eliazar betes mellitus 85140480 E11.59 Discussed importance of tight glycemic control to minimize cardiovasc ular disease progressio n. Aortic aneurysm 87525765 I71.[address] Obstructiv e sleep apnea syndrome 97416382 G47.33 On CPAP. [id number] Franco Lopes [place] [facility] [address] [place] [address] 06/26/2017 11:44:16 06/27/2017 10:04:12 Benign essential hypertension 3500906 I10 Patient's blood pressure is {{well-con trolled* [...] 1 week. Continue digoxin. Congestive heart failure 63318335 I50.9 Pt with HF-pEF. Currently euvolemic. Pt [...] supplement . Type 2 eliazar betes mellitus 06863683 E11.59 Discussed importance of tight glycemic control to minimize cardiovasc ular disease progressio n. Aortic aneurysm 96875516 I71.[address] Heart healthy, low-fat, low-choles terol, diabetic diet, with wharf helper consult. Obstructiv e sleep apnea syndrome 77637180 G47.33 On CPAP. Urine cult ure - Proteus 504845935 R82.79 She reports nausea for 3 weeks and bilateral inguinal discomfort for 1 week without dysuria, with reduced urine output and elevated Cr. Had urine culture 06/19/17 with >100,000 cfu/mL Proteus mirabilis. Patient needs follow-up with PCP KAYA. Began Augmentin 875/125 mg bid for 7 days. Repeat CMP for Cr and Ca/Mg in 10 days. [id number] Franco Lopes [place] [facility] [address] [place] [address] 07/10/2017 11:11:43 07/11/2017 10:30:51 Benign essential hypertension 6631951 I10 Patient's blood pressure is {{well-con trolled* [...] 07/10/17 for Mg 1.1. Congestive heart failure 26902934 I50.9 Pt with HF-pEF. Currently euvolemic. Pt [...] supplement . Type 2 eliazar betes mellitus 97720264 E11.59 Discussed importance of tight glycemic control to minimize cardiovasc ular disease progressio n. Aortic aneurysm 71970237 I71.[address] Heart healthy, low-fat, low-choles terol, diabetic diet, with wharf helper consult. Obstructiv e sleep apnea syndrome 33911136 G47.33 On CPAP. Continue. Tolerating . Urine cult ure - Proteus 472696058 R82.79 She reports nausea for 3 weeks and bilateral inguinal discomfort for 1 week without dysuria, with reduced urine output and elevated Cr. Had urine culture 06/19/17 with >100,000 cfu/mL Proteus mirabilis. Patient needs follow-up with PCP KAYA. Completed Augmentin 875/125 mg bid for 7 days. Hypercalcemia 02940744 E 83.52 Ca improved to 12.4 off Vit D and with increased hydration, but calcium remains elevated. PCP instructed to f/u with PCP. CMP/Mg in 2 weeks. Franco Porter Office [address] [place] [address] 08/08/2017 14:35:22 08/08/2017 16:37:44 Benign essential hypertension 0728160 I10 Patient's blood pressure is {{well-con trolled* [...] 400 mg bid 08/08/17. Congestive heart failure 69202331 I50.9 Pt with HF-pEF. Currently euvolemic. Had [...] 11.3, M.2. Type 2 eliazar betes mellitus 89639494 E11.59 Discussed importance of tight glycemic control to minimize cardiovasc ular disease progressio n. Aortic aneurysm 02900026 I71.9 Stable on CTscan 03/27/17: fusiform aneurysm of ascending aorta 4.2x4.1 cm. Heart healthy, low-fat, low-choles terol, diabetic diet, with wharf helper consult. Obstructiv e sleep apnea syndrome 93340386 G47.33 On CPAP. Continue. Tolerating . Urine cult ure - Proteus 152082768 R82.79 She reports nausea for 3 weeks and bilateral inguinal discomfort for 1 week without dysuria, with reduced urine output and elevated Cr. Had urine culture 06/19/17 with >100,000 cfu/mL Proteus mirabilis. Patient needs follow-up with PCP KAYA. Completed Augmentin 875/125 mg bid for 7 days. Hypercalcemia 43139658 E 83.52 Ca improved to 12.4 off Vit D and with increased hydration, but calcium remains elevated. Had 08/08/17: Ca 11.3. Pt instructed to f/u with PCP or endocrinol ogist for workup of hypercalce javed and possible parathyroi d disease. CMP/Mg in 4 weeks. Pain in ri ght lower limb 819775932 M79.604 Mild edema and pain right posterior knee and leg. Obtain LE Doppler. [id number] Franco Bahhman [place] [facility] [address] [place] [address] 09/18/2017 14:53:43 09/25/2017 15:10:13 Essential hypertension 94593167 I10 Patient's blood pressure is {{well-con trolled* [...] less daily). Chronic ob structive pulmonary disease 27346345 J44.9 On Oxygen 1-2 L NC Type 2 eliazar betes mellitus 30922158 E11.59 Discussed importance of tight glycemic control [...] Mg 1.4 09/11/17. Atypical chest pain 1025 31283 R07.89 Atypical. Intermitte nt chest pain which [...] GERD or diabetic gastropare sis. Aortic aneurysm 01479217 I71.[address] scan 03/27/17: fusiform aneurysm of ascending aorta 4.2x4.1 cm. Heart healthy, low-fat, low-choles terol, diabetic diet, with wharf helper consult. Hyperlipidemia 08935904 E78.5 Needs to keep LDL less than 70, and HDL more than 40. Obtain FLP. [id number] [facility] OFFICE [address] [place] [address] 11/18/2017 16:10:22 11/18/2017 17:41:52 Atypical chest pain 442970985 R07.89 Resolved. Had Dobutamine Myocardial Perfusion Study [...] GERD or diabetic gastropare sis. Essential hypertension 28241270 I10 Patient's blood pressure is {{well-con trolled* [...] per PCP. Chronic ob structive pulmonary disease [id number] J44.9 On Oxygen 1-2 L NC. Needs f/u with pulm. for considerat ion of bronchodil ator therapy. Type 2 eliazar betes mellitus 03571041 E11.59 Discussed importance of tight glycemic control to minimize cardiovasc ular disease progressio n. Aortic aneurysm 41720867 I71.[address] scan 03/27/17: fusiform aneurysm of ascending aorta 4.2x4.1 cm. Needs [address] f/u as per PCP 03/2018. Heart healthy, low-fat, low-choles terol, diabetic diet, with wharf helper consult. Hyperlipidemia 62656520 E78.5 Needs to keep LDL less than 70, and HDL more than 40. Had LDL 92 10/01/17. Patient wants to talk to PCP before starting statin. Obstructiv e sleep apnea syndrome 00901328 G47.33 On CPAP. Continue. Needs to resume while waiting on new mask. [id number] Franco Lopes [place] OFF[facility] [place] [address] 12/02/2017 16:26:52 12/02/2017 18:51:29 Atypical chest pain 487979901 R07.89 Resolved. Had Dobutamine Myocardial Perfusion Study [...] GERD or diabetic gastropare sis. Essential hypertension 33479740 I10 Patient's blood pressure is {{well-con trolled [...] CMP, Mg. Chronic ob structive pulmonary disease 13065109 J44.9 On Oxygen 1-2 L NC. Needs f/u with pulm. for considerat ion of bronchodil ator therapy. Type 2 eliazar betes mellitus 66708042 E11.59 Discussed importance of tight glycemic control to minimize cardiovasc ular disease progressio n. Aortic aneurysm 00738398 I71.[address] scan 03/27/17: fusiform [...] healthy, low-fat, low-choles terol, diabetic diet, with wharf helper consult. Hyperlipidemia 73625721 E78.5 Needs to keep LDL less than 70, and HDL more than 40. Had LDL 92 10/01/17. Began atorvastat in 20mg qHS 12/02/17. Obstructiv e sleep apnea syndrome 74408419 G47.33 On CPAP. Continue. Needs to resume while waiting on new mask. [id number] Franco Moses [place] OFF[facility] [address] [place] [address] 01/22/2018 15:59:36 01/23/2018 18:49:41 Atypical chest pain 553919072 R07.89 Resolved. Had Dobutamine Myocardial Perfusion Study [...] GERD or diabetic gastropare sis. Essential hypertension 47215733 I10 Patient's blood pressure is {{well-con trolled [...] increased Cr. Chronic ob structive pulmonary disease 34851158 J44.9 On Oxygen 1-2 L NC. Needs f/u with pulm. Type 2 eliazar betes mellitus 75552551 E11.59 Discussed importance of tight glycemic control to minimize cardiovasc ular disease progressio n. Aortic aneurysm 27328528 I71.[address] scan 03/27/17: fusiform [...] healthy, low-fat, low-choles terol, diabetic diet, with wharf helper consult. Hyperlipidemia 41870493 E78.5 Needs to keep LDL less than 70, and HDL more than 40. Had LDL 92 10/01/17. Had 01/02/18: TC 192, HDL 30, TG 274, LDL 120, CK 21. Began atorvastat in 20mg qHS 01/22/18. FLP 1 mo. Obstructiv e sleep apnea syndrome 83374946 G47.33 On CPAP. Continue. Followed by pulmonolog ist. [id number] Franco Lopes [place] OFF[facility] [place] [address] 04/02/2018 14:49:32 04/02/2018 17:14:31 Hyperlipidemia 51929165 E78.5 Needs to keep LDL less than 70, and HDL more than 40. Had LDL 92 10/01/17. Had 01/02/18: TC 192, HDL 30, TG 274, LDL 120, CK 21. Began atorvastat in 20 mg qHS 01/22/18. Had FLP 02/19/18: TG 224, LDL 72. Patient does not want to increase statin at this time. Atypical chest pain 1025 73043 R07.89 Stable. Atypical. Had Dobutamine Myocardial Perfusion [...] GERD, or diabetic gastropare sis. Essential hypertension 89185833 I10 Patient's blood pressure is {{well-con trolled* [...] and EKG. Coumadin changed. INR 1.9 per [facility]. Continue digoxin. Began MgOxide 07/10/17 [...] Mg 1.9. Chronic ob structive pulmonary disease 04153009 J44.9 On Oxygen 1-2 L NC. Needs f/u with pulm. Type 2 eliazar betes mellitus 54372117 E11.59 Discussed importance of tight glycemic control to minimize cardiovasc ular disease progressio n. Aortic aneurysm 31360641 I71.[address] scan 03/27/17: fusiform [...] healthy, low-fat, low-choles terol, diabetic diet, with wharf helper consult. Obstructiv e sleep apnea syndrome 80596039 G47.33 On CPAP. Continue. Followed by pulmonolog ist. [id number] Franco Bahhman [place] OFFICE [address] [place] [address] 10/01/2018 15:41:45 10/01/2018 17:17:11 Hyperlipidemia 11168979 E78.5 Needs to keep LDL less than [...] FLP 1 mo. Atypical chest pain 1025 79784 R07.89 Improved. Atypical. Had Dobutamine Myocardial Perfusion [...] GERD, or diabetic gastropare sis. Essential hypertension 57703340 I10 Patient's blood pressure is {{well-con trolled* [...] and EKG. Coumadin changed. INR 2.0 per [facility]. Continue digoxin. Began MgOxide 07/10/17 [...] HgbA1C 10.5%, Chronic ob structive pulmonary disease 01784119 J44.9 On Oxygen 1-2 L NC prn. Needs f/u with pulm. Type 2 eliazar betes mellitus 72881565 E11.59 Discussed importance of tight glycemic control to minimize cardiovasc ular disease progressio n. Aortic aneurysm 30394080 I71.[address] of chest 06/26/18: [...] healthy, low-fat, low-choles terol, diabetic diet, with wharf helper consult. Obtain chest CT early 2019. Obstructiv e sleep apnea syndrome 33587654 G47.33 On BiPAP. Continue. Followed by pulmonolog ist. Obesity 593124914 E66.9 20 lb. weight loss recommende d over the next 2 months. Hypothyroidism 53220379 E03.9 Medication changed recently per endocrinol ogist. Had 08/2018: free T4 0.8 normal. [address] [facility] [address] [place] [address] 12/08/2018 15:22:53 12/08/2018 17:14:42 Hyperlipidemia 56194958 E78.5 Needs to keep LDL less than [...] gm bid 12/08/18. Atypical chest pain 1025 27341 R07.89 Improved. Atypical. Had Dobutamine Myocardial Perfusion [...] GERD, or diabetic gastropare sis. Essential hypertension 00814857 I10 Patient's blood pressure is {{well-con trolled* [...] and EKG. Coumadin changed. INR 1.9 per [facility]. Continue digoxin. Began MgOxide 07/10/17 [...] HgbA1C 10.5%, Chronic ob structive pulmonary disease 30758861 J44.9 On Oxygen 1-2 L NC prn. Needs f/u with pulm. Type 2 eliazar betes mellitus 98302855 E11.59 Discussed importance of tight glycemic control to minimize cardiovasc ular disease progressio n. Aortic aneurysm 10009634 I71.[address] of chest 06/26/18: [...] healthy, low-fat, low-choles terol, diabetic diet, with wharf helper consult. Obtain chest CT early 2019. Obstructiv e sleep apnea syndrome 86187921 G47.33 On BiPAP. Continue. Followed by pulmonolog ist. Obesity 689013620 E66.9 20 lb. weight loss recommende d over the next 2 months. Hypothyroidism 58818156 E03.9 Medication changed recently per endocrinol ogist. Had 08/2018: free T4 0.8 normal. 99[address] [facility] OFFICE [facility] [place] [address] 04/08/2019 15:48:06 04/08/2019 16:48:51 Hyperlipidemia 59520603 E78.5 Needs to keep LDL less than [...] gm bid 12/08/18. Atypical chest pain 1025 11772 R07.89 Improved. Atypical. Had Dobutamine Myocardial Perfusion [...] GERD, or diabetic gastropare sis. Essential hypertension 20638727 I10 Patient's blood pressure is {{well-con trolled* [...] HgbA1C 10.5%, Chronic ob structive pulmonary disease 80765802 J44.9 On Oxygen 1-2 L NC prn. Needs f/u with pulm. Type 2 eliazar betes mellitus 90131524 E11.59 Discussed importance of tight glycemic control to minimize cardiovasc ular disease progressio n. Aortic aneurysm 15526078 I71.9 Stable. We may use 2D echo [...] healthy, low-fat, low-choles terol, diabetic diet, with wharf helper consult. Obtain chest CT early 2019. Obstructiv e sleep apnea syndrome 07366006 G47.33 On BiPAP. Continue. Followed by pulmonolog ist. Obesity 848640602 E66.9 20 lb. weight loss recommende d over the next 2 months. Hypothyroidism 64555703 E03.9 Medication changed recently per endocrinol ogist. Had 08/2018: free T4 0.8 normal. Benign hypertension 1072 5009 I10 [id number] [facility] OFFICE [address] [place] [address] 01/25/2020 16:04:16 01/25/2020 19:14:21 Hyperlipidemia 94968195 E78.5 Needs to keep LDL less than [...] gm bid 12/08/18. Atypical chest pain 1025 95787 R07.89 Improved. Atypical. Had Dobutamine Myocardial Perfusion [...] GERD, or diabetic gastropare sis. Essential hypertension 36967975 I10 Patient's blood pressure is {{well-con trolled* [...] HgbA1C 10.5%, Chronic ob structive pulmonary disease 99013913 J44.9 On Oxygen 1-2 L NC prn. Needs f/u with pulm. Type 2 eliazar betes mellitus 48004225 E11.59 Discussed importance of tight glycemic control to minimize cardiovasc ular disease progressio n. Aortic aneurysm 16136215 I71.9 Stable. aorta measures 4.3 cm on [...] healthy, low-fat, low-choles terol, diabetic diet, with wharf helper consult. Obtain chest CT early 2019. Obstructiv e sleep apnea syndrome 73087461 G47.33 On BiPAP. Continue. Followed by pulmonolog ist. Obesity 526125177 E66.9 20 lb. weight loss recommende d over the next 2 months. Hypothyroidism 87626488 E03.9 Medication changed recently per endocrinol ogist. Had 08/2018: free T4 0.8 normal. Benign hypertension 1072 5009 I10 [id number] [facility] OFFICE [address] [place] [address] 07/13/2020 14:52:41 07/13/2020 16:13:43 Hyperlipidemia 03992930 E78.5 Needs to keep LDL less than [...] patient. Obtain FLP. Atypical chest pain 1025 82055 R07.89 Atypical. Had Dobutamine Myocardial Perfusion Study 07/30/17 : Negative dobutamine stress test for ischemia. Normal LV systolic function. Abnormal stress test. Artifact noted. No previous study to compare. LVEF >60%. Consider costochond ritis, GERD, or diabetic gastropare sis. Essential hypertension 11012290 I10 Patient's blood pressure is {{well-con trolled* [...] HgbA1C 10.5%, Chronic ob structive pulmonary disease 21841160 J44.9 Needs f/u with pulm. Type 2 eliazar betes mellitus 20861917 E11.59 Discussed importance of tight glycemic control to minimize cardiovasc ular disease progressio n. Aortic aneurysm 86027024 I71.9 Stable. aorta measures 4.3 cm on [...] healthy, low-fat, low-choles terol, diabetic diet, with wharf helper consult. Obtain chest CTA 08/2020, delayed pending reduction in COVID-19 risk. Obstructiv e sleep apnea syndrome 53293364 G47.33 On BiPAP. Continue. Followed by pulmonolog ist. Obesity 293934062 E66.9 20 lb. weight loss recommende d over the next 2 months. Hypothyroidism 52706417 E03.9 PCP now following. Had 08/2018: free [...] had COVID-19 PCR positive 06/20/20 testing at [facility]. Urgent Care. Obtain CXR PA and lateral [...] No previous study to compare. LVEF >60%. [id number] Franco [facility] OFFICE [address] [place] [address] 11/30/2020 14:36:37 12/21/2020 11:37:12 Dyspnea on exertion 32290633 R06.09 Patient presents with {{chest* a rm [...] previous study to compare. LVEF >60%. Hyperlipidemia 15254192 E78.5 Needs to keep LDL less than [...] Mg, CPK, TSH. Atypical chest pain 1025 37808 R07.89 Exertional . Obtain stress test as above. Had Dobutamine Myocardial Perfusion Study 07/30/17 : Negative dobutamine stress test for ischemia. Normal LV systolic function. Abnormal stress test. Artifact noted. No previous study to compare. LVEF >60%. Consider costochond ritis, GERD, or diabetic gastropare sis. Essential hypertension 98954690 I10 Patient's blood pressure is {{well-con trolled [...] and HTN. Chronic ob structive pulmonary disease 92963862 J44.9 Needs f/u with pulm. Type 2 eliazar betes mellitus 31310366 E11.59 Discussed importance of tight glycemic control to minimize cardiovasc ular disease progressio n. Aortic aneurysm 78529116 I71.9 Stable. Aorta measures 4.3 cm on [...] healthy, low-fat, low-choles terol, diabetic diet, with wharf helper consult. Optimize BP and cholestero l control., Obtain next chest CTA 11/23/2021. Obstructiv e sleep apnea syndrome 35723900 G47.33 On BiPAP. Continue. Followed by pulmonolog ist. She had titration study. Obesity 003771063 E66.9 20 lb. weight loss recommende d over the next 2 months. Hypothyroidism 07554940 E03.9 PCP now following. Had 08/2018: free T4 0.8 normal. Obtain TSH. [id number] Franco Bahhman [place] OFF[facility] [address] [place] [address] 02/22/2021 12:36:22 02/22/2021 14:34:49 Dyspnea on exertion 01643097 R06.09 Patient presents with {{chest* a rm [...] . The patient agrees to proceed at [facility]. #####Stop Coumadin 5 days prior to the procedure. Reduce Basaglar to 1/2 usual dose PM evening before [facility], and hold in AM of [facility]. The procedure was discussed with the patient, [...] weeks, so she needs to resume. Hyperlipidemia 71349348 E78.5 Needs to keep LDL less than [...] 160, LDL 66 Atypical chest pain 1025 70889 R07.89 Exertional . Had dobutamine nuclear stress [...] GERD, or diabetic gastropare sis. Essential hypertension 27811192 I10 Patient's blood pressure is {{well-con trolled [...] and HTN. Chronic ob structive pulmonary disease 70671771 J44.9 Needs f/u with pulm. Type 2 eliazar betes mellitus 17703758 E11.59 Discussed importance of tight glycemic control to minimize cardiovasc ular disease progressio n. Aortic aneurysm 15433910 I71.9 Stable. Aorta measures 4.3 cm on [...] healthy, low-fat, low-choles terol, diabetic diet, with wharf helper consult. Optimize BP and cholestero l control., Obtain next chest CTA 11/23/2021. Obstructiv e sleep apnea syndrome 89015420 G47.33 On BiPAP. Continue. Followed by pulmonolog ist. She had titration study. Obesity 222631546 E66.9 20 lb. weight loss recommende d over the next 2 months. Hypothyroidism 64676834 E03.9 PCP now following. Had 08/2018: free T4 0.8 normal. Obtained normal TSH 12/2020. [id number] Darell Lozada MD [place] OFF[facility] [address] [place] [address] 04/04/2021 15:24:28 04/04/2021 16:14:58 Dyspnea on exertion 86295798 R06.09 with negative cathOSA treatment and follow up Hyperlipidemia 52653960 E78.5 Needs to keep LDL less than [...] 160, LDL 66 Atypical chest pain 1025 41619 R07.89 Exertional . Had dobutamine nuclear stress [...] GERD, or diabetic gastropare sis. Essential hypertension 41389048 I10 Seems to be well compensate d [...] bid 08/08/17. Chronic ob structive pulmonary disease 69779315 J44.9 Needs f/u with pulm. Type 2 eliazar betes mellitus 83723121 E11.59 Discussed importance of tight glycemic control to minimize cardiovasc ular disease progressio n. Aortic aneurysm 60341729 I71.9 Stable. Aorta measures 4.3 cm on [...] healthy, low-fat, low-choles terol, diabetic diet, with wharf helper consult. Optimize BP and cholestero l control., Obtain next chest CTA 11/23/2021. Obstructiv e sleep apnea syndrome 21023160 G47.33 On BiPAP. Continue. Followed by pulmonolog ist. She had titration study. Obesity 449754040 E66.9 20 lb. weight loss recommende d over the next 2 months. Hypothyroidism 79478969 E03.9 PCP now following. Had 08/2018: free T4 0.8 normal. Obtained normal TSH 12/2020. [id number] Franco Bahhman [place] OFFICE [address] [place] [address] 08/30/2021 12:39:30 08/30/2021 15:11:59 Dyspnea on exertion 60187294 R06.09 ALIVIA treatment and follow up Hyperlipidemia 32652070 E78.5 Needs to keep LDL less than [...] in the past. Atypical chest pain 1025 79051 R07.89 Exertional . Had catheteriz ation straight [...] GERD, or diabetic gastropare sis. Essential hypertension 42804682 I10 Seems to be well compensate d [...] bid 08/08/17. Chronic ob structive pulmonary disease 12129967 J44.9 Needs f/u with pulm. Type 2 eliazar betes mellitus 95401128 E11.59 Discussed importance of tight glycemic control to minimize cardiovasc ular disease progressio n. Aortic aneurysm 73152292 I71.9 Stable. Aorta measures 4.3 cm on [...] healthy, low-fat, low-choles terol, diabetic diet, with wharf helper consult. Optimize BP and cholestero l control., Obtain next chest CTA 11/23/2021. Obstructiv e sleep apnea syndrome 74659285 G47.33 On BiPAP. Continue. Followed by pulmonolog ist. She had titration study. Obesity 942712716 E66.9 20 lb. weight loss recommende d over the next 2 months. Hypothyroidism 51525818 E03.9 PCP now following. Had 08/2018: free T4 0.8 normal. Obtained normal TSH 12/2020. Coronary arteriosclerosis 67840131 I25.10 Mild CAD. Had catheteriz ation straight - procedure (PROC) 03/27/21: Mild CAD (mLAD 25% stenosis, ostial D1 50%). Normal left ventricula r function. Elevated left ventricula r end-diasto lic pressure. Not on ASA given mild CAD and need for Coumadin for afib. Needs to keep LDL less than 70, and HDL more than 40. Heart fail ure with normal ejection fraction 292246620 I50.33 Had catheteriz ation straight - procedure [...] doing. Obtain CMP, Mg, CBC, TSH, FLP. [id number] Franco Bahhman [place] OFF[facility] [address] [place] [address] 11/01/2021 11:17:11 11/01/2021 12:34:14 Dyspnea on exertion 17541789 R06.09 ALIVIA treatment and follow up Hyperlipidemia 79110257 E78.5 Needs to keep LDL less than [...] gm bid 11/01/21. Atypical chest pain 1025 15296 R07.89 Improved. Had catheteriz ation straight - [...] ASA in setting of warfarin. Essential hypertension 04194362 I10 Patient's blood pressure is {{well-con trolled [...] bid 08/08/17. Chronic ob structive pulmonary disease 56026676 J44.9 Needs f/u with pulm. Type 2 eliazar betes mellitus 48316918 E11.59 Discussed importance of tight glycemic control to minimize cardiovasc ular disease progressio n. Aortic aneurysm 60980435 I71.9 Stable. Aorta measures 4.3 cm on [...] healthy, low-fat, low-choles terol, diabetic diet, with wharf helper consult. Optimize BP and cholestero l control., Obtain chest CTA 10/2021. Obstructiv e sleep apnea syndrome 73659932 G47.33 On BiPAP. Continue. Followed by pulmonolog ist. She had titration study. Obesity 001533684 E66.9 20 lb. weight loss recommende d over the next 2 months. Hypothyroidism 64997679 E03.9 PCP now following. Had 08/2018: free T4 0.8 normal. Obtained normal TSH 12/2020. Coronary arteriosclerosis 92461853 I25.10 Mild CAD. Had catheteriz ation straight - procedure (PROC) 03/27/21: Mild CAD (mLAD 25% stenosis, ostial D1 50%). Normal left ventricula r function. Elevated left ventricula r end-diasto lic pressure. Not on ASA given mild CAD and need for Coumadin for afib. Needs to keep LDL less than 70, and HDL more than 40. Heart fail ure with normal ejection fraction 728565787 I50.33 Had catheteriz ation straight - procedure [...] 08/30/21. Eat daily banana as is doing. [id number] Franco Bahhman [place] OFFICE [address] [place] [address] 01/03/2022 15:43:25 01/03/2022 18:14:37 Dyspnea on exertion 61925067 R06.09 Increased. In setting of acute on [...] d over the next 2 months. Hyperlipidemia 11158698 E78.5 Needs to keep LDL less than [...] gm bid 11/01/21. Atypical chest pain 1025 44959 R07.89 Improved. Had catheteriz ation straight - [...] ASA in setting of warfarin. Essential hypertension 98939080 I10 Patient's blood pressure is {{well-con trolled [...] bid 08/08/17. Chronic ob structive pulmonary disease 90422233 J44.9 Needs f/u with pulm. Type 2 eliazar betes mellitus 67021351 E11.59 Discussed importance of tight glycemic control to minimize cardiovasc ular disease progressio n. Aortic aneurysm 83093080 I71.9 Stable. Aorta measures 4.3 cm on [...] healthy, low-fat, low-choles terol, diabetic diet, with wharf helper consult. Optimize BP and cholestero l control., Obtain chest CTA 11/2022. Obstructiv e sleep apnea syndrome 41582289 G47.33 On BiPAP. Continue. Followed by pulmonolog ist. She had titration study. Obesity 992170995 E66.9 20 lb. weight loss recommende d over the next 2 months. Hypothyroidism 52170590 E03.9 PCP now following. Had 08/2018: free T4 0.8 normal. Obtained normal TSH 12/2020. Coronary arteriosclerosis 30131155 I25.10 Mild CAD. Had catheteriz ation straight - procedure (PROC) 03/27/21: Mild CAD (mLAD 25% stenosis, ostial D1 50%). Normal left ventricula r function. Elevated left ventricula r end-diasto lic pressure. Not on ASA given mild CAD and need for Coumadin for afib. Needs to keep LDL less than 70, and HDL more than 40. Heart fail ure with normal ejection fraction 388020807 I50.33 Had catheteriz ation straight - procedure [...] leg edema, obtain LE venous Doppler at [facility]. Had 12/29/21: Cr 0.93, K 4.5, Mg 1.9 BMP, Mg 2 wks. Edema of l ower extremity 797443566 R60.0 For left posterior knee pain and leg edema, obtain LE venous Doppler at [facility]. [address] Franco Lopes [place] OFFICE [address] [place] [address] 02/14/2022 15:05:40 02/14/2022 16:42:24 Dyspnea on exertion 75030334 R06.09 Increased. In setting of acute on [...] d over the next 2 months. Hyperlipidemia 26652237 E78.5 Needs to keep LDL less than [...] gm bid 11/01/21. Atypical chest pain 1025 98345 R07.89 Improved. Had catheteriz ation straight - [...] ASA in setting of warfarin. Essential hypertension 74625559 I10 Patient's blood pressure is {{well-con trolled [...] bid 08/08/17. Chronic ob structive pulmonary disease 54178174 J44.9 Needs f/u with pulm. Type 2 eliazar betes mellitus 99702716 E11.59 Discussed importance of tight glycemic control to minimize cardiovasc ular disease progressio n. Aortic aneurysm 02461988 I71.9 Stable. Aorta measures 4.0-4.3 cm on [...] healthy, low-fat, low-choles terol, diabetic diet, with wharf helper consult. Optimize BP and cholestero l control., Obtain chest CTA 11/2022. Obstructiv e sleep apnea syndrome 31675329 G47.33 On BiPAP. Continue. Followed by pulmonolog ist. She had titration study. Obesity 093774980 E66.9 20 lb. weight loss recommende d over the next 2 months. Hypothyroidism 66197786 E03.9 PCP now following. Had 08/2018: free T4 0.8 normal. Obtained normal TSH 12/2020. Had 10/18/21: INR 2.3, HDL 42, TG 169, LDL 69, Cr 1.07, K 4.6, Mg 1.9, TSH 2.7, hgb 13.7 Coronary arteriosclerosis 56687718 I25.10 Mild CAD. Had catheteriz ation straight - procedure (PROC) 03/27/21: Mild CAD (mLAD 25% stenosis, ostial D1 50%). Normal left ventricula r function. Elevated left ventricula r end-diasto lic pressure. Not on ASA given mild CAD and need for Coumadin for afib. Needs to keep LDL less than 70, and HDL more than 40. Heart fail ure with normal ejection fraction 307456652 I50.33 Had catheteriz ation straight - procedure [...] qd 02/14/22. Edema of l ower extremity 584664332 R60.0 Increased L>R leg since mid-December 2021. Had 02/07/22 US, echocardio gram: LV chamber size is normal. There is normal global systolic function and contractil ity. The estimated left ventricle ejection fraction is 55-60% (normal). Had US, doppler, venous 01-19-2022 : Negative left-sided venous Doppler study. Increased from Lasix 20 mg qd to 40 mg qd 02/14/22. Obtain BMP, Mg 3 wks. 52848 Franco Bahhman [place] OFFICE [address] [place] [address] 07/18/2022 14:33:03 07/18/2022 16:16:03 Dyspnea on exertion 57620467 R06.09 Improved. In setting of acute on [...] d over the next 2 months.. Hyperlipidemia 22549893 E78.5 Needs to keep LDL less than [...] Mg, TSH, CBC. Atypical chest pain 1025 93953 R07.89 Improved. Had catheteriz ation straight - [...] ASA in setting of warfarin. Essential hypertension 72270724 I10 Patient's blood pressure is {{well-con trolled* [...] Needs repeat INR in 3 weeks per [facility], on Coumadin 2 mg alternate with 3 mg qHS. Began MgOxide 07/10/17 for Mg 1.1. On 08/08/17, Mg 1.2. Increased to magnesium oxide 400 mg bid 08/08/17. Chronic ob structive pulmonary disease 79645797 J44.9 Needs f/u with pulm. Type 2 eliazar betes mellitus 96802991 E11.59 Discussed importance of tight glycemic control to minimize cardiovasc ular disease progressio n. Aortic aneurysm 18688300 I71.9 Stable. Aorta measures 4.0-4.3 cm on [...] healthy, low-fat, low-choles terol, diabetic diet, with wharf helper consult. Optimize BP and cholestero l control., Obtain chest CTA 11/2022. Obstructiv e sleep apnea syndrome 24328108 G47.33 On BiPAP. Continue. Followed by pulmonolog ist. She had titration study. Obesity 536746442 E66.9 20 lb. weight loss recommende d over the next 2 months. Hypothyroidism 23798064 E03.9 PCP now following. Had 08/2018: free T4 0.8 normal. Obtained normal TSH 12/2020. Had 10/18/21: INR 2.3, HDL 42, TG 169, LDL 69, Cr 1.07, K 4.6, Mg 1.9, TSH 2.7, hgb 13.7 Coronary arteriosclerosis 62452150 I25.10 Mild CAD. Had catheteriz ation straight - procedure (PROC) 03/27/21: Mild CAD (mLAD 25% stenosis, ostial D1 50%). Normal left ventricula r function. Elevated left ventricula r end-diasto lic pressure. Began ASA 81 mg qd 07/18/22. Needs to keep LDL less than 70, and HDL more than 40. Heart fail ure with normal ejection fraction [id number] I50.33 Had catheteriz ation straight - procedure [...] qd 02/14/22. Edema of l ower extremity [id number] R60.0 Improved. Had 02/07/22 US, echocardio gram: LV chamber size is normal. There is normal global systolic function and contractil ity. The estimated left ventricle ejection fraction is 55-60% (normal). Had US, doppler, venous 01-19-2022 : Negative left-sided venous Doppler study. Increased from Lasix 20 mg qd to 40 mg qd 02/14/22. Obtain FLP, CMP, Mg, TSH, CBC. [address] [address] [place] [facility] [address] [place] [address] 11/14/2022 13:57:15 11/14/2022 15:23:17 Dyspnea on exertion [id number] R06.09 Improved. In setting of acute on [...] d over the next 2 months.. Hyperlipidemia [id number] E78.5 Needs to keep LDL less than [...] Mg, TSH, CBC. Atypical chest pain 1025 08884 R07.89 Has focal tenderness noted left anterior [...] CTA chest given aortic aneurysm. Essential hypertension [id number] I10 Patient's blood pressure is {{well-con trolled* [...] Needs repeat INR in 3 weeks per [facility], on Coumadin 2 mg qHS. Began MgOxide 07/10/17 for Mg 1.1. On 08/08/17, Mg 1.2. Increased to magnesium oxide 400 mg bid 08/08/17. Chronic ob structive pulmonary disease 96962296 J44.9 Needs f/u with pulm. Type 2 eliazar betes mellitus [id number] E11.59 Discussed importance of tight glycemic control to minimize cardiovasc ular disease progressio n. Aortic aneurysm 46574404 I71.9 Stable. Aorta measures 4.0-4.3 cm on [...] healthy, low-fat, low-choles terol, diabetic diet, with wharf helper consult. Optimize BP and cholestero l control., Obtain chest CTA 11/2022. Obstructiv e sleep apnea syndrome [id number] G47.33 On BiPAP. Continue. Followed by pulmonolog ist. She had titration study. Obesity [id number] E66.9 20 lb. weight loss recommende d over the next 2 months. Hypothyroidism 77040667 E03.9 PCP now following. Had 08/2018: free T4 0.8 normal. Obtained normal TSH 12/2020. Had 10/18/21: INR 2.3, HDL 42, TG 169, LDL 69, Cr 1.07, K 4.6, Mg 1.9, TSH 2.7, hgb 13.7 Coronary arteriosclerosis [id number] I25.10 Mild CAD. Had catheteriz ation straight - procedure (PROC) 03/27/21: Mild CAD (mLAD 25% stenosis, ostial D1 50%). Normal left ventricula r function. Elevated left ventricula r end-diasto lic pressure. Began ASA 81 mg qd 07/18/22. Needs to keep LDL less than 70, and HDL more than 40. Heart fail ure with normal ejection fraction [id number] I50.33 Had catheteriz ation straight - procedure [...] qd 02/14/22. Edema of l ower extremity [id number] R60.0 Improved. Had 02/07/22 US, echocardio gram: [...] Name 11/01/2021 1 [place] Carol Gee [id number] Carol Gee 11/01/2021 2 [facility] - DOS ON OR AFTER 20 (MEDICAID REPLACEMENT - HMO) Carol Gee [id number] Carol Gee 01/03/2022 1 [place] Gee [id number] Carol Gee 01/03/2022 2 [facility] - DOS ON OR AFTER 20 (MEDICAID REPLACEMENT - HMO) Carol Gee [id number] Carol Gee 02/14/2022 1 [place] Carol Gee [id number] Carol Gee 02/14/2022 2 [place] [facility] PUBLIC AID Carol Gee [id number] Carol Gee 07/18/2022 1 [place] Carol Gee [id number] Carol Gee 07/18/2022 2 [place] Carol Gee [id number] Carol Gee 11/14/2022 1 [place] Carol Gee [id number] Carol Gee 11/14/2022 2 [place] [facility] OF PUBLIC AID Carol Gee [id number] Carol Gee Notes Date Note Type Note [...] measuring 9x 16 mm. She went to [facility] on 02/05/18 for a consultation with a surgeon to see about biopsy vs surgical removal of nodule. She had PFT testing 01/29/18. She had CT scan 03/12/2018 showed nodule stable. She had CT scan 05/2018 showed nodule resolved. She was at [facility] on 11/27/17 for elevated calcium levels (13.2). [...] and has it checked at lab per [facility]. She was in [facility] in 05/22/17 because of atrial fibrillation with [...] 08/28/21 - INR : 2.1(H)PT 19.8(H) PT/INR [id number] 1.7 H PT 17.2 H 03/27/21:Na 137,K [...] Elevated left ventricular end-diastolic pressure. Franco sinha [place] - [facility] 11/01/2021 12:27:41 01/03/2022 [...] measuring 9x 16 mm. She went to [facility] on 02/05/18 for a consultation with a surgeon to see about biopsy vs surgical removal of nodule. She had PFT testing 01/29/18. She had CT scan 03/12/2018 showed nodule stable. She had CT scan 05/2018 showed nodule resolved. She was at [facility] on 11/27/17 for elevated calcium levels (13.2). [...] and has it checked at lab per [facility]. She was in [facility] in 05/22/17 because of atrial fibrillation with [...] 08/28/21 - INR : 2.1(H)PT 19.8(H) PT/INR [id number] 1.7 H PT 17.2 H 03/27/21:Na 137,K [...] Elevated left ventricular end-diastolic pressure. Franco sinha [place] - [facility] 01/03/2022 18:05:38 02/14/2022 [...] measuring 9x 16 mm. She went to [facility] on 02/05/18 for a consultation with a surgeon to see about biopsy vs surgical removal of nodule. She had PFT testing 01/29/18. She had CT scan 03/12/2018 showed nodule stable. She had CT scan 05/2018 showed nodule resolved. She was at [facility] on 11/27/17 for elevated calcium levels (13.2). [...] and has it checked at lab per [facility]. She was in [facility] in 05/22/17 because of atrial fibrillation with [...] 08/28/21 - INR : 2.1(H)PT 19.8(H) PT/INR [id number] 1.7 H PT 17.2 H 03/27/21:Na 137,K [...] function. Elevated left ventricular end-diastolic pressure. [place] - [facility] 02/14/2022 16:38:38 [...] measuring 9x 16 mm. She went to [facility] on 02/05/18 for a consultation with a surgeon to see about biopsy vs surgical removal of nodule. She had PFT testing 01/29/18. She had CT scan 03/12/2018 showed nodule stable. She had CT scan 05/2018 showed nodule resolved. She was at [facility] on 11/27/17 for elevated calcium levels (13.2). [...] and has it checked at lab per [facility]. She was in [facility] in 05/22/17 because of atrial fibrillation with [...] 08/28/21 - INR : 2.1(H)PT 19.8(H) PT/INR [id number] 1.7 H PT 17.2 H 03/27/21:Na 137,K [...] fibrillation. Low voltage, chest leads US, echocardiogram [id number] chamber size is normal. There is normal [...] setting of atrial fibrillation. US, doppler, venous [id number] Duplex Negative left-sided venous Doppler study. US, [...] Elevated left ventricular end-diastolic pressure. Franco sinha [place] - [facility] 07/18/2022 16:12:33 11/14/2022 [...] measuring 9x 16 mm. She went to [facility] on 02/05/18 for a consultation with a surgeon to see about biopsy vs surgical removal of nodule. She had PFT testing 01/29/18. She had CT scan 03/12/2018 showed nodule stable. She had CT scan 05/2018 showed nodule resolved. She was at [facility] on 11/27/17 for elevated calcium levels (13.2). [...] and has it checked at lab per [facility]. She was in [facility] in 05/22/17 because of atrial fibrillation with [...] 08/28/21 - INR : 2.1(H)PT 19.8(H) PT/INR [id number] 1.7 H PT 17.2 H 03/27/21:Na 137,K [...] fibrillation. Low voltage, chest leads US, echocardiogram [id number] chamber size is normal. There is normal [...] setting of atrial fibrillation. US, doppler, venous [id number] Duplex Negative left-sided venous Doppler study. US, [...] Elevated left ventricular end-diastolic pressure. Franco sinha [place] - [facility] 11/14/2022 15:16:36 OBGyn Episode No OBEpisode recorded.
--- NOTE | 2024-07-24 06:31 | WPDHPUPDATE1 ---
History and Physical Update Update Date/Time: 07/24/24 06:31 History and Physical has been reviewed, including an updated exam of the patient. There are NO changes in the patient's condition. Risks, benefits, and alternatives have been discussed and questions answered. Patient agrees to proceed with procedure.
--- NOTE | 2024-07-24 07:27 | P.PNAN_ITS ---
Anes - Initial Pre Proc Eval Procedure: Operation Date: 07/24/24 11:00 Proposed Procedures p Left Extracorporeal Shock Wave Lithotripsy - Hardik Mclaughlin MD Date/Time: 07/24/24 07:27 Surgeon: Hardik Mclaughlin MD Pre Op Diagnosis: Left Kidney Stone Patient Data Age: 68 Gender: F Height: 1.73 m Weight: 97.4 kg Allergies Allergy/AdvReac Type Severity Reaction Status Date / Time Cephalosporins Allergy Unknown Hives Verified 07/16/24 14:23 ciprofloxacin Allergy Unknown Hives Verified 07/16/24 14:23 codeine Allergy Unknown Hives Verified 07/16/24 14:23 erythromycin base Allergy Unknown Hives Verified 07/16/24 14:23 levofloxacin Allergy Unknown Hives Verified 07/16/24 14:23 lidocaine Allergy Unknown Hives Verified 07/16/24 14:23 Macrolide Antibiotics Allergy Unknown Hives Verified 07/16/24 14:23 Quinolones Allergy Unknown Hives Verified 07/16/24 14:23 Sulfa (Sulfonamide Allergy Unknown Hives Verified 07/16/24 14:23 Antibiotics) theophylline Allergy Unknown Hives Verified 07/16/24 14:23 citalopram AdvReac Unknown Agitated Verified 07/16/24 14:23 ALL ASHLEY DRUGS Allergy Mild ITCHING, Uncoded 07/16/24 14:23 BURNING, SWELLING AT SITE Home Medications ?Medication ?Instructions ?Recorded ?Confirmed ?Type diltiazem HCl 120 mg capsule,24 120 mg PO DAILY 06/29/19 07/16/24 History hr,extended release metoprolol succinate 25 mg 25 mg PO DAILY 01/25/21 07/16/24 History tablet,extended release 24 hr escitalopram oxalate 20 mg tablet 20 mg PO DAILY #30 tabs 03/28/21 07/16/24 Rx blood-glucose meter (OneTouch #1 ea 01/04/22 07/06/24 Rx Ultra2 Meter) spirometers and accessories #1 ea 02/20/22 07/06/24 Rx aspirin 81 mg tablet,delayed 81 mg PO DAILY 08/20/22 07/16/24 History release buspirone 30 mg tablet 30 mg PO BID #1 tablet 10/02/22 07/16/24 Rx quetiapine 300 mg tablet 300 mg PO QHS #1 tablet 10/02/22 07/16/24 Rx cholecalciferol (vitamin D3) 10 2,000 unit PO DAILY 12/17/22 07/16/24 History mcg (400 unit) capsule lancets #200 ea 12/17/22 07/06/24 Rx polyethylene glycol 3350 17 17 g PO DAILY 1 month #510 grams 05/21/23 07/16/24 Rx gram/dose oral powder (Miralax) levothyroxine 150 mcg tablet 150 mcg PO DAILY #90 tabs 08/29/23 07/16/24 Rx (Euthyrox) magnesium oxide 400 mg (241.3 mg 800 mg (2 x 400 mg (241.3 mg 09/30/23 07/16/24 Rx magnesium) tablet magnesium)) PO DAILY #180 tabs blood sugar diagnostic (OneTouch #100 ea 02/17/24 07/06/24 Rx Ultra Test strips) pen needle, diabetic 31 gauge x #100 ea 03/23/24 07/06/24 Rx 5/16 (TRUEplus Pen Needle) apixaban 5 mg tablet (Eliquis) 5 mg PO BID 03/27/24 07/16/24 History acetaminophen 650 mg tablet 650 mg PO Q6H PRN y 03/30/24 07/16/24 History tramadol 50 mg tablet 50 mg PO Q6H PRN pain 4-6 #20 tabs 04/03/24 07/16/24 Rx bisacodyl 10 mg rectal suppository 10 mg RECTAL HS PRN constipation 07/06/24 07/16/24 History (Dulcolax (bisacodyl)) docusate sodium 100 mg tablet 100 mg PO DAILY PRN constipation 07/06/24 07/16/24 History ondansetron 4 mg disintegrating 4 mg PO Q8H PRN nausea 07/06/24 07/16/24 History tablet amoxicillin 875 mg-potassium 1 tablet PO Q12H #10 tabs 07/14/24 07/16/24 Rx clavulanate 125 mg tablet insulin aspart U-100 100 unit/mL 1 - 3 unit subcut HS #10 mL 07/14/24 07/16/24 Rx subcutaneous solution (Novolog U-100 Insulin aspart) insulin aspart U-100 100 unit/mL 3 - 6 unit subcut TIDWM #10 mL 07/14/24 07/16/24 Rx subcutaneous solution (Novolog U-100 Insulin aspart) insulin aspart U-100 100 unit/mL 4 unit (0.04 mL) subcut TIDWM #10 07/14/24 07/16/24 Rx subcutaneous solution (Novolog mL U-100 Insulin aspart) insulin glargine 100 unit/mL 12 unit (0.12 mL) subcut DAILY #10 07/14/24 07/16/24 Rx subcutaneous solution (Lantus mL U-100 Insulin) Patient hx anesthesia problems: none Family hx anesthesia problems: none Results Review: All pre-operative results and documents have been reviewed as part of the pre- operative evaluation. [facility] Past Medical History Medical History (Updated 07/24/24 @ 07:28 by Saul Garcia DO) Chronic pain CHF (congestive heart failure) Thoracic aortic aneurysm (TAA) 4.2 cm ALIVIA (obstructive sleep apnea) Bipap Sepsis Chronic kidney disease Depression Obstructive sleep apnea treated with BiPAP Psoriasis Type 2 diabetes mellitus Hyperlipidemia COVID-19 Spinal stenosis Ascending aortic aneurysm Atrial fibrillation No longer on anticoagulation as of fall 2022 due to history of falls. Hypothyroidism Kidney stone Psoriatic arthritis Vitamin D deficiency Essential (primary) hypertension Surgical History Surgical History History of hysterectomy History of bunionectomy Family History Family History Sibling Family history of respiratory disorder Family history of diabetes mellitus in first degree relative Family history of congestive heart failure Acute myocardial infarction Mother Family history of chronic obstructive pulmonary disease Family history of congestive heart failure Father Acute myocardial infarction Other Family history of arthritis Family history of malignant neoplasm Family history of mental disorder Hypertension Social History Social History Social History: Surrogate medical decision maker: June Gee or Sienna Roy, daughters. Code status: Full code. Smoking status: Unknown if ever smoked Second hand tobacco smoke exposure: Yes Alcohol intake: never Substance use: never Substance use type: does not use Do You Feel Safe in your Home?: Yes Lack of Transportation: No Lack of Food: Never True Current Housing: I Have Housing Concerned About Future Housing: No Difficulty Paying Gas/Electric Bills: No Difficulty Paying for Meds: No Currently Unemployed: No Education: High School Diploma/GED Difficulty w/ Childcare or Family Care: No Living arrangements: retirement Additional living arrangements comments: The patient lives in her own home in [place]. Spiritual care concerns: No Anes - Eval Final PreProcedure Day of Procedure 07/24/24 07:27 Patient weight: obese Heart: regular rate and rhythm Lungs: clear to auscultation Airway: Mallampati scale class III Neurological: alert and oriented Last oral intake: >/= 8 hours ASA classification: IV Emergent: no Anesthetic plan: proceed Anesthesia type and monitoring: general LMA and standard monitoring Results Review: All pre-operative results and documents have been reviewed as part of the pre- operative evaluation. Informed Consent: The patient's anesthetic plan and its attendant risks and benefits were discussed with the patient/family/POA. Questions were solicited and answers provided to the satisfaction of the patient/family/POA.
[2024-07-24 10:20] LABS: Glucose Point of Care 121 mg/dl (65-105)
[2024-07-24] MEDS: LACTATED RINGERS 1,000 ML 30 ML IV CONT (10:20)
--- NOTE | 2024-07-24 10:33 | SUR.PREOP ---
VERIFIED W/ MELITA PETERS AT [facility] GIVEN THIS AM AND D/C DATES OF ASA AND ELIQUIS.
[2024-07-24 10:38] LABS: INR 1.2; Prothrombin Time 15.6 Seconds (11.1-14.7)
[2024-07-24 10:39] LABS: Partial Thromboplastin Time 38.5 Seconds (22.3-36.8)
[2024-07-24] MEDS: AMPICILLIN SULB 3 GM/NS 100 ML 3 GM/100 ML VIAL IVPB (10:51)
--- NOTE | 2024-07-24 11:23 | P.OP_ITS ---
Procedure Note - Detailed Date of Procedure 07/24/24 Pre-op Diagnosis Left Kidney Stone Post-op Diagnosis Same Procedure Performed Left ESWL Surgeon Hardik Mclaughlin MD Anesthesia General Description of Procedure The patient was brought to the operative suite where she was placed in the supine position on the Dornier lithotripsy table. The focal point of the lithotripter was placed at a 13-14mm left renal calculus. A total of 2500 shocks were delivered at a power setting of 4. There appeared to be good f ragmentation of the stone. The patient tolerated the procedure well and was taken to the recovery room in good condition. Packing No Pathology None sent Complications No immediate complications Condition Stable Disposition PACU
[2024-07-24 11:47] LABS: Glucose Point of Care 119 mg/dl (65-105)
[2024-07-24] MEDS: MIDAZOLAM HCL (*CRX) 2 MG/2 ML VIAL 1 MG IV PUSH (13:24)
== END 2024-07-24 14:18 | disposition home or self-care (01) ==
PROVIDERS: PCP Nurse Practitioner Family; Visit Provider Urology
PROC: (CPT 50590; principal; 2024-07-24 11:00)
DX: N20.1 Calculus of ureter (principal); I48.91 Unspecified atrial fibrillation; I12.9 Hypertensive chronic kidney disease with stage 1 through stage 4 chronic kidney disease, or unspecified chronic kidney disease; E11.22 Type 2 diabetes mellitus with diabetic chronic kidney disease; N18.9 Chronic kidney disease, unspecified
CPT/HCPCS: 50590; 36415; 74018; 82948; 85610; 85730; J0295; J2003; J2250; J2405; J2704; J3010; J7120

== ENCOUNTER 2024-08-11 12:24 | Outpatient (CLI) | payer MEDICARE, MEDICAID, SELFPAY ==
--- NOTE | ~2024-08-11 | XR_ITS ---
XR abdomen/kub 1V 08/11/2024 12:50 Indication: Renal stones Procedure: KUB Comparison: 07/24/2024 Findings: Bowel gas pattern nonobstructive. Moderate colonic fecal loading. There are left renal ston es clustered in the lower pole. There is a left internal ureteral stent in expected position. There a re cholecystectomy clips. Impression: 1: Left nephrolithiasis. Reviewed, dictated and finalized at location B. ERY EXAMINER Impression: 1: Left nephrolithiasis.
--- OUTSIDE RECORDS SUMMARY | 2024-08-11 13:21 | XMS_ITS | Clinical Summary ---
Author Organization [facility] Address [address] [place] [address] Care Team Providers Care Domestic Laundry Worker Name Role Phone PatriciaJohn andrade DO Primary Care Provider [phone] Source Comments [facility],non-owned Affiliates and Associated Physician Practices is amultiple site organization consisting of ambulatory clinics and hospital sitesin [place], [place], [place] and [place]. This disclosure is being madepursuant to the Care Everywhere program and may not contain all information available regarding this patient. Last updated 18.[facility] Allergies Active Allergy Reactions Criticality Noted Date [...] (one) tablet TID 09/13/2016 Active FREESTYLE LANCETS [facility] [place] 09/20/2016 Active blood glucose (FREESTYLE LITE STRIPS) [...] pen needle (NOVOFINE) 32G X 6 MM [facility] [place] 08/13/2016 Active levothyroxine (SYNTHROID) 112 MCG tablet [...] Primary osteoarthritis involving multiple joints 03/07/2017 [facility] [place] drug therapy 7 Other psoriasis 10/14/2016 [...] 77 10/25/2021 11:09 AM CDT Temperature 36.3 C (97.3 F) 10/25/2021 11:09 AM CDT Respiratory Rate 18 03/07/2017 2:04 [...] [place] SCREENING 1955 MAMMOGRAM 1955 MEDICARE AWV 12 MONTHS 1956 DTAP/TDAP/TD VACCINES (1 - Tdap) 11/14/1975 PNEUMOCOCCAL VACCINE 50+ (1 of 2 - PCV) 11/14/1975 ZOSTER VACCINE (1 of 2) 2006 Respiratory Syncytial Virus (RSV) Vaccine Pt: or over 60 yrs (1 - Risk 60-74 years 1-dose series) 2016 DIABETES RETINOPATHY SCREENING 03/02/2020 DIABETES-FOOT EXAM WITH MONOFILAMENT 03/02/2020 DIABETES-HGB A1C 03/02/2020 DIABETES-SERUM CREATININE 06/19/20232021, 05/31/2021, 03/27/2021, Additional history exists COVID-19 VACCINE ( - season) 2024 INFLUENZA VACCINE (#1) 2024 DEPRESSION SCREENING 07/01/2024 DIABETES - URINE PROTEIN SCREENING 07/01/2024 HEPATITIS C SCREENING Completed 03/04/2020, 017 HEPATITIS B VACCINE Aged Out No longe r eligible based on patient's age to complete this topic HIB VACCINE Aged Out No longer eligi ble based on patient's age to complete this topic HPV VACCINE Aged Out No longer eligi ble based on patient's age to complete this topic MENINGOCOCCAL (Group B) VACCINE Aged Out No longer eligible based on patient's age to complete this topic MENINGOCOCCAL VACCINE Aged Out No gwyn ara eligible based on patient's age to complete this topic Procedures Procedure Name Priority Date/Time Associated Diagnosis Comments COMPREHENSIVE METABOLIC PANEL Routine 06/19/2022 3:03 PM TIME BUYER 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 BUN 14 7 - 25 mg/dL [facility] Creatinine 0.88 0.50 - 1.05 mg/dL [facility] eGFR by Cystatin C 73 > OR = 60 mL/min/1. 73m2 [facility] Comment: The eGFR is based on the CKD-EPI 202 equation. To calculate the new eGFR from [...] 29 U/L [facility] Comment: Test Performed at: [facility] [id number] [facility] [place] [address] ISABELLA RODRIGUEZ DO,MPH Blood BLOOD SPECIMEN / Unknown 06/19/2022 3:03 PM TIME BUYER 06/19/2022 3:03 PM TIME BUYER [facility] - CHEMISTRY ABHISHEK TREVIÑO Performing Organization Address [facility] Co de Phone Number [facility] [address] [place] [address] * HEPATITIS C AB W/RFLX TO HCV RNA QN PCR (03/04/2020 9:54 AM CDT) Hepatitis C Antibody NON-REACTI VE NON-REACT CASTRO [facility] Signal to Cut-Off 0.03 <1.00 [facility] Comment: HCV antibody was non-reactive. There is no laboratory evidence of HCV infection. In most cases, no further action is required. However, if recent HCV exposure is suspected, a test for HCV RNA (test code 03135) is suggested. For additional information please refer to http://education.Corebook/faq/UDC19n9 (This link is being provided for informational/ educational purposes only.) Test Performed at: [facility] [address] [facility] [place] [address] ISABELLA RODRIGUEZ DO,MPH 03/04/2020 9:54 AM CDT 03/04/2020 9:59 AM CDT Stephy Fitzpatrick MD LAB - CHEMISTRY ABHISHEK TREVIÑO Performing Organization Address [facility] Co de Phone Number [facility] [address] [place] [address] from Last 3 Months or Most Recently Relevant to Health Maintenance Care Teams Domestic Laundry Worker Relationship Specialty Start Date End Date John Gomez DO [address] [place] [address] PCP - General 04/11/21
--- OUTSIDE RECORDS SUMMARY | 2024-08-11 13:21 | XMS_ITS | Clinical Summary ---
Author Organization [facility] Address [address] [address] Care Team Providers Care Video Production Specialist Name Role Phone Lane Ring MD [...] Theophylline Itching Low Trimethoprim Unknown 02/05/2018 Medications atorvastatin (LIPITOR) 20 mg tablet atorvastatin 20 mg tablet Take 1 tablet every day by oral route at bedtime. Active insulin glargine (BASAGLAR KWIKPEN U-100 INSULIN) 100 unit/mL pen syringe Inject 80 Units by subcutaneous injection daily at bedtime . 7 Active blood sugar diagnostic (FREESTYLE LITE STRIPS) Strip 7 Active escitalopram oxalate (LEXAPRO) 10 mg tablet escitalopram 10 mg tablet Active escitalopram oxalate (LEXAPRO) 20 mg tablet Take 20 mg by mouth. 7 Active busPIRone (BUSPAR) 15 mg Tablet Take 15 mg by mouth 3 times daily . 7 Active QUEtiapine (SEROquel) 100 mg tablet Take 150 mg by mouth daily . 7 Active warfarin (COUMADIN) 1 mg tablet warfarin [...] qd Active lancets (FREESTYLE LANCETS) 28 gauge 7 Active insulin lispro (HumaLOG U-100 Insulin) 100 unit/mL vial Humalog U-100 Insulin 100 unit/mL subcutaneous solution Active hydrocortisone (HYTONE) 2.5 % Ointment Apply to affected area 2 times daily as needed . 7 Active Insulin Alder, Disposable, (NOVOFINE 32) 32 gauge x 1/4 Needle 7 Active ondansetron (ZOFRAN) 4 mg Tablet ondansetron HCl 4 mg tablet Active HYDROmorphone (DILAUDID) 2 mg tablet Take 1 Tablet (2 mg) by mouth every 3 hours as needed for Pain Take 1 tab 20 min prior to biopsy. Max Daily Amount: 16 mg 2 Tablet 8 Active Active Problems Problem Noted Date Diagnosed [...] drink = 0.6 oz pur e alcohol) Comments No Sex and Gender Information Value Date Recorded Sex Assigned at Not on file Legal Sex Female 11:45 AM CDT Gender Identity Not on file Sexual Orientation Not on file Last Filed Vital Signs Vital Sign Reading Time Taken Comments Blood Pressure 112/68 02/05/2018 10:09 AM CDT Pulse 68 02/05/2018 10:09 AM CDT Temperature 36.4 C (97.6 F) 01/13/2018 8:59 AM CDT Respiratory Rate 18 02/05/2018 10:09 AM CDT Oxygen Saturation 95% 01/13/2018 8:59 AM CDT Inhaled Oxygen Concentration - - Weight 113.4 kg (250 lb) 02/05/2018 10:09 AM CDT Height 172.7 cm (5' 8 ) 02/05/2018 10:09 AM CDT Body Mass Index 38.01 02/05/2018 10:09 AM CDT Plan of Treatment Health Maintenance Due Date Last Done Comments DIABETES ANNUAL FOOT EXAM 1974 DIABETES ANNUAL RETINAL EXAM 1974 DIABETES HBA1C Q 6 MONTHS 1974 DIABETES MICROALBUMIN ANNUAL SCREEN 1974 LDL CHOLESTEROL ANNUAL 1974 DTAP/TDAP/TD VACCINES (1 - Tdap) 11/14/1975 PNEUMOCOCCAL VACCINE 65+ YEARS (1 of 2 - PCV) 11/13/18 76 BREAST CANCER SCREENING 1996 COLORECTAL SCREENING 2001 Colorectal Cancer Screening 2001 FIT-DNA Q 3 years 2001 FIT/FOBT Q 1 year 2001 Flex Sig/CT Colonography Q 5 years 2001 ZOSTER VACCINE (1 of 2) 2006 RSV VACCINE (60+ or ) (1 - Risk 60-74 years 1-dose series) 2016 OSTEOPOROSIS SCREENING 2021 INFLUENZA VACCINE (#1) 2024 Insurance [facility] MEDICAID Care Teams Video Production Specialist Relationship Specialty Start Date End Date Lane Ring MD [address] [place] [address] PCP - General Internal Medicine 12/17/17
--- OUTSIDE RECORDS SUMMARY | 2024-08-11 13:21 | XMS_ITS | Clinical Summary ---
Author Organization [facility] Address [address] [place] [address] Care Team Providers Care Warm In Name Role Phone Unavailable Primary Care Provider [...] (1 - 1-dose 75+ series) 11/14/2031 Meningococcal B Vaccine Aged Out No l onger eligible based on patient's age to complete this topic Meningococcal Vaccine Aged Out No gwyn ara eligible based on patient's age to complete this topic RSV Immunizations Under 20 Months Aged Out No longer eligible based on patient's age to complete this topic Insurance CIRCLE
--- OUTSIDE RECORDS SUMMARY | 2024-08-11 13:21 | XMS_ITS ---
Author Organization [facility] Address [address] [place] [address] Care Team Providers Care Kitchen Chef Name Role Phone Fannie Campuzano Primary Care Provider REASON FOR VISIT update and question Social History Sex Assigned At : Social History Observation Description Sex Assigned At Female Encounters Encounter Location Date Provider Diagnosis [address] [place] [address] 07/14/2024 [facility] Plan Of Treatment No Information Progress Notes * Hermila GEEsDOB:1955 (68 yo F)Acc No.[id number]:07/14/2024 Patient: Carol MAY :1955 A ge:68 Y S ex:Female Address:[address] [place] [address], [address], [place], [address] * true * Date: Generated for Garyi corrine/Jacquelyng/eTransmitting on: 0 08/11/2024 01:21 PM MEDIA CONSULTANT
--- OUTSIDE RECORDS SUMMARY | 2024-08-11 13:21 | XMS_ITS | Encounter Summary ---
Author Organization [facility] Address [address] [facility] [place] [address] Care Team Providers Care Merchandising Manager Name Role Phone John Gomez DO Primary Care Provider [phone] Encounter Details Date Type Department Care Team (Late st Contact Info) Description 07/18/2021 Telephone [facility] [address] [facility] [place] [address] Pastora Roy PA [address] [facility] [address] [place] [address] Social History Tobacco Use Types [...] She is up to date on labs ER * Telephone Encounter - Pastora Roy PA - 07/18/2021 2:46 PM CST Patient called for refill cosentyx Sent to [facility]e /anya She has follow up in August She is up to date on labs ER documented in this encounter Plan of Treatment Not on file documented as of this encounter Visit Diagnoses Diagnosis Other psoriasis documented in this encounter Care Teams Merchandising Manager Relationship Specialty Start Date End Date John Gomez DO [address] [place] [address] PCP - General 04/11/21 documented as of this encounter
--- OUTSIDE RECORDS SUMMARY | 2024-08-11 13:21 | XMS_ITS ---
Author Organization [facility] Address [address] [place] [address] Care Team Providers Care Supervisor Winding Department Name Role Phone Fannie Campuzano Primary Care Provider [phone] REASON FOR VISIT med issues Medications Medication SIG (Take, Route, Fr equency, Duration) Notes Start Date End Date Status SEROquel 25 MG 1 tablet in morning Orally Once a day for 30 days Active SEROquel 300 MG 0.5 tablet at bedtim e Orally Once a day for 30 days Active Lexapro 10 MG 1 tablet Orally Once a day for 30 days Active RisperDAL 1 MG 1 tablet Orally twic e a day for 30 days Active Lexapro 20 MG 1 tablet Orally Once a day for 30 days Active Social History Sex Assigned At : Social History Observation Description Sex Assigned At Female Encounters Encounter Location Date Provider Diagnosis [address] [address] 07/27/2024 Fannie Campuzano Schizoaffective diso rder F25.9 Assessments Encounter Date Diagnosis (ICD Code) Assessment Notes Treatment Notes Treatment Clinical Notes Section Notes 07/27/2024 Schizoaffective disorder (ICD-10 - F25.9) Plan Of Treatment Medication Medication Name Sig Start Date Stop Date Notes SEROquel 25 MG 1 tablet in morning Orally Once a day for 30 days SEROquel 300 MG 0.5 tablet at bedtim e Orally Once a day for 30 days Lexapro 10 MG 1 tablet Orally Once a day for 30 days RisperDAL 1 MG 1 tablet Orally twice a day for 30 days Lexapro 20 MG 1 tablet Orally Once a day for 30 days Progress Notes * Lana GEE:1955 (68 yo F)Acc No.[id number]:07/27/2024 UNLOCKED PROGRESS NOTE Patient: Carol MAY :1955 A ge:68 Y S ex:Female Address:[address] [place] [address], [place] [address] * Refills Refill Lexapro Tablet, 10 MG, Orally, 30 Tablet, 1 tablet, Once a day, 30 days, Refills=0 Refill Lexapro Tablet, 20 MG, Orally, 30 Tablet, 1 tablet, Once a day, 30 days, Refills=0 Refill SEROquel Tablet, 300 MG, Orally, 15 Tablet, 0.5 tablet at bedtime, Once a day, 30 days, Refills=0 Refill SEROquel Tablet, 25 MG, Orally, 30 Tablet, 1 tablet in morning, Once a day, 30 days, Refills=0 Refill RisperDAL Tablet, 1 MG, Orally, 60 Tablet, 1 tablet, twice a day, 30 days, Refills=0 * * Date:
--- OUTSIDE RECORDS SUMMARY | 2024-08-11 13:21 | XMS_ITS | Continuity of Care Document ---
Author Name Auto Generated, Auto Generated Organization [facility] Summary Purpose Consult/Referral Allergies, Adverse Reactions, Alerts No Known Allergies Medications No Known Medications Conditions/Problems No Known Problems Procedures No Known Procedures
--- OUTSIDE RECORDS SUMMARY | 2024-08-11 13:21 | XMS_ITS | Referral Summary ---
Author Organization [facility] Address [address] [place] [address] Care Team Providers Care Percussion Welding Machine Operator Name Role Phone PatriciaJohn andrade DO Primary Care Provider [phone] Source Comments [facility],non-owned Affiliates and Associated Physician Practices is amultiple site organization consisting of ambulatory clinics and hospital sitesin [place], [place], [place] and [place]. This disclosure is being madepursuant to the Care Everywhere program and may not contain all information available regarding this patient. Last updated 18.[facility] Allergies Active Allergy Reactions Criticality Noted Date [...] (one) tablet TID 09/13/2016 Active FREESTYLE LANCETS [facility] 09/20/2016 Active blood glucose (FREESTYLE LITE STRIPS) [...] pen needle (NOVOFINE) 32G X 6 MM [facility] 08/13/2016 Active levothyroxine (SYNTHROID) 112 MCG tablet [...] Primary osteoarthritis involving multiple joints 03/07/2017 Other halfway (current) drug therapy 7 Other psoriasis 10/14/2016 [...] COMPREHENSIVE METABOLIC PANEL Routine 06/19/2022 3:03 PM AUTOMOTIVE SERVICE PROFESSIONAL Other halfway (current) drug therapy HEPATITIS C AB W/RFLX TO HCV RNA QN PCR 03/04/2020 9:54 AM CDT from Last 3 Months or Most Recently Relevant to Health Maintenance Results * (ABNORMAL) COMPREHENSIVE METABOLIC PANEL (06/19/2022 3:03 PM AUTOMOTIVE SERVICE PROFESSIONAL) Glucose 102(H) 65 - 99 mg/dL [facility] [...] 29 U/L [facility] Comment: Test Performed at: [facility] [id number] [place] [address] [address] ISABELLA RODRIGUEZ DO,MPH Blood BLOOD SPECIMEN / Unknown 06/19/2022 3:03 PM AUTOMOTIVE SERVICE PROFESSIONAL 06/19/2022 3:03 PM AUTOMOTIVE SERVICE PROFESSIONAL [facility] [address] [place] [address] * HEPATITIS C AB W/RFLX TO HCV RNA QN PCR (03/04/2020 9:54 AM CDT) Hepatitis C Antibody NON-REACTI VE NON-REACT CASTRO [facility] Signal to Cut-Off 0.03 <1.00 [facility] Comment: HCV antibody was non-reactive. There is no laboratory evidence of HCV infection. In most cases, no further action is required. However, if recent HCV exposure is suspected, a test for HCV RNA (test code 25463) is suggested. For additional information please refer to http://education.[facility]/faq/QYA79h0 (This link is being provided for informational/ educational purposes only.) Test Performed at: [facility] [id number] [place] [address] ISABELLA RODRIGUEZ DO,MPH 03/04/2020 9:54 AM CDT 03/04/2020 9:59 AM CDT Stephy Fitzpatrick MD [facility] - CHEMISTRY [facility] [address] [place] [address] from Last 3 Months or Most Recently Relevant to Health Maintenance Care Teams Percussion Welding Machine Operator Relationship Specialty Start Date End Date John Gomez DO [address] [place] [address] PCP - General 04/11/21
--- OUTSIDE RECORDS SUMMARY | 2024-08-11 13:22 | XMS_ITS ---
Author Organization [facility] Address [address] [place] [address] Care Team Providers Care Internal Grinder Name Role Phone Fannie Campuzano Primary Care Provider [phone] Allergies Allergen (clinical drug ingredient) Drug/Non Drug [...] Unknown Drug Allergy Active REASON FOR VISIT Psych F/U, discuss meds, CSSR Interpretation and Follow UP Plan, call [phone]- (she is having trouble hearing today) Medications Medication SIG (Take, Route, Frequency, Duration) Notes Start Date End Date Status Lisinopril 5 MG 1 tablet Orally Once a day for 30 day(s) Active Admelog 100 UNIT/ML as directed Subcutaneous 9-15 units 3 times a day Active Basaglar KwikPen 100 UNIT/ML as directed Subcutaneous 62 units twice a day Active Cosentyx 300 Dose 1 monthly No t-Taking metFORMIN HCl 500 MG 1 tablet with a car l Orally twice a day Not-Taking Levothyroxine Sodium 150 MCG 1 tablet in the morning on an empty stomach Orally Once a day for 30 day(s) Active dilTIAZem HCl ER Beads 120 MG 1 capsule Orally Once a day for 30 day(s) Active Magnesium Bisglycinate 100 MG 2 tablets (400mg) Orally twice a day Active Metoprolol Succinate 25 MG 1/2 capsule Orally Once a day Active Warfarin Sodium 2 MG 1 tablet Orally Onc e a day for 30 days Active Eliquis Active Pravastatin Sodium 40 MG 1 tablet Orally Once a day for 30 day(s) Active SEROquel 300 MG 0.5 tablet at bedtim e Orally Once a day for 30 days Active SEROquel 25 MG 1 tablet in morning Orally Once a day for 30 days Active RisperDAL 1 MG 1 tablet Orally twic e a day for 30 days Active busPIRone HCl 15 MG 1 tablet Orally Twic e a day for 30 days Active Lexapro 10 MG 1 tablet Orally Once a day for 30 days Active Lexapro 20 MG 1 tablet Orally Once a day for 30 days Active Social History Tobacco Use: Social History Observation Description Date Details (start date - stop date) Never Smoker NA - NA Sex Assigned At : Social History Observation Description Sex Assigned At Female Tobacco Control (Standard) Question Answer Notes Tobacco use: Nonsmoker Encounters Encounter Location Date Provider Diagnosis [address] [address] 07/21/2024 Arif Habib Schizoaffective diso rder F25.9 Assessments Encounter Date Diagnosis (ICD Code) Assessment Notes Treatment Notes Treatment Clinical Notes Section Notes 07/21/2024 Schizoaffective disorder (ICD-10 - F25.9) risk & benefits discussed. Restart her Seroquel. Risperdal and Buspar half of the doses. Side effec ts discussed. Supportive treatment provided. Plan Of Treatment Medication Medication Name Sig Start Date Stop Date Notes SEROquel 300 MG 0.5 tablet at bedtim e Orally Once a day for 30 days SEROquel 25 MG 1 tablet in morning Orally Once a day for 30 days RisperDAL 1 MG 1 tablet Orally twic e a day for 30 days busPIRone HCl 15 MG 1 tablet Orally Twic e a day for 30 days Lexapro 10 MG 1 tablet Orally Once a day for 30 days Lexapro 20 MG 1 tablet Orally Once a day for 30 days Treatment Notes Assessment Notes Schizoaffective disorder risk & benefits discussed. Restart her Seroquel. Risperdal and Buspar half of the doses. Side effec ts discussed. Supportive treatment provided. Next Appt Details Follow Up: 4 Weeks, Reason: Progress Notes * Hermila GEEsDOB:1955 (68 yo F)Acc No.[id number]:07/21/2024 Patient: Carol MAY Provider: Miguel Campuzano :1955 A ge:68 Y S ex:Female Date:07/21/2024 Address:[address] [place] [address], [id number] [id number] Subjective: * Chief Complaints: * P sych F/UDiscuss medsCSSR Interpretation and Follow UP PlanCall [phone]- (she is having trouble hearing today) * HPI: D epression Screening: PHQ-9 L ittle interest or pleasure in doing things N ot at all, F eeling down, depressed, or hopeless N ot at all, T rouble falling or staying asleep, or sleeping too much S everal days, F eeling tired or having little energy S everal days, P oor appetite or overeating N ot at all, F eeling bad about yourself or that you are a failure, or have let yourself or your family down N ot at all, T rouble concentrating on things, such as reading the newspaper or watching television M ore than half the days,?Moving or speaking so slowly that other people could have noticed; or the opposite, being so fidgety or restless that you have been moving around a lot more than usual S everal days, T houghts that you would be better off or of hurting yourself in some way N ot at all, T otal Score 5 , I nterpretation M ild Depression. S creening: [place] Suicide Severity Rating Scale (LF) D o you want to initiate with S creener form, 1 . Wish to be : Have you wished you were or wished you could go to sleep and not wake up? N o, 2 . Suicidal Thoughts: Have you actually had any thoughts of killing yourself? N o, 6 . Suicide Behaviour: Have you ever done anything,started to do anything, or prepared to end your life? N o, I nterpretation: L ow Risk. C SSRS Interpretation and Follow Up Plan: CSSRS Interpretation and Follow Up Plan C SSRS Screen documented using SF Y es, R isk Disposition from SF L ow - No Follow Up Plan Required, F ollow Up Plan N o Follow Up Plan required at this time.. P reventative Health and Wellness follow-up: Action Plans for Clinical Quality Measures: B reast Cancer Screening: N ot addressed during this visit. See notes for details., C olorectal Cancer Screening: N ot addressed during this visit. See notes for details.. . D epression Screening PHQ9: PHQ-2 (2015 Edition) L ittle interest or pleasure in doing things? N ot at all, F eeling down, depressed, or hopeless? N ot at all, T otal Score 0 . Phone session today Reports she has been in [facility] since beginning of March 2024. Pt was in medical hospitaland her Risperdal, Seroquel, Buspar were stopped. Reports feeling depressed because being there . Pt reports she is doing alright. Medications are working. Denies side effects. Sleep is alright. Denies hallucination or delusions. Appetite is alright. Denies SI/HI. D enies manic or hypo manic symptoms. Anxiety is under control. (Pt was inpatient at [facility] total for 22 days .Pt was first on medical floor because she had covid with no symptoms. Pt was paranoid, delusional. She thought she had no insurance, no money, no food and she stopped takin medicines at home and taking care of self. She started declining after she moved to [place] [facility] apartment alone. Pt had he mdications adjusted in hospital and also Risperdal was added. She showed significant improvement with Risperdal.). [facility]. 66 year old sister who on 05/09/21. 93 year old Aunt in August 2021. Her Parents and all siblings are now. (all 5 brothers & 2 sisters are ). Follows [employer] for sleep apnea. On CPAP. Uses BiPAP. On Warfarin. MSE---Alert,Ox4,mood alright. Speech normal. Denies SI/HI. Denies hallucination or delusion. Denies manic or hypo manic symptoms. Insight & judgement alright. * Medical History: * Surgical History: b union surgery 1992total hysterectomy 1996hernia surgery 05/2000gallbladder * Hospitalization/Major Diagno stic Procedure: T otal Hysterectomy 1996Hernia Surgery 05/2000Gallbladder UTI onsitpation 2022 * Family History: F ather: , 56- heart attack and brain aneurysm. M other: , 73- COPD. S iblings: 28 brother- [id number]- AMA. 2 brother(s) , 1 sister(s) . 1 son(s) , 2 daughter(s) - healthy. . * Social History: P rimary Social History: L iving Arrangement L iving Arrangement: D ependent Living, L iving with: O ther: Lives at [facility], I s this a supportive environment? Y es. A lcohol Use A lcohol Use Frequency: N ever. I llicit Substance Usage I llicit Substance Usage: N o. E mployment Status E mployment Status: U nemployed. T obacco Use: T obacco Control (Standard) T obacco use: N onsmoker. * Medications: T akingEliquis Pravastatin Sodium 40 MG Tablet 1 tablet [...] directed Subcutaneous 62 units twice a day busPIRone HCl 30 MG Tablet 1 tablet Orally Twice a day Lexapro 10 MG Tablet 1 tablet Orally Once a day Lexapro 20 MG Tablet 1 tablet Orally Once a day SEROquel 300 MG Tablet 1 tablet at bedtime Orally Once a day SEROquel 50 MG Tablet 1 tablet in morning Orally Once a day RisperDAL 1 MG Tablet 1.5 tablet Orally twice a day Taking Eliquis Taking Pravastatin Sodium [...] Subcutaneous 62 units twice a day Taking busPIRone HCl 30 MG Tablet 1 tablet Orally Twice a day Taking Lexapro 10 MG Tablet 1 tablet Orally Once a day Taking Lexapro 20 MG Tablet 1 tablet Orally Once a day Taking SEROquel 300 MG Tablet 1 tablet at bedtime Orally Once a day Taking SEROquel 50 MG Tablet 1 tablet in morning Orally Once a day Taking RisperDAL 1 MG Tablet 1.5 tablet Orally twice a day Not-TakingCosentyx 300 Dose , Notes to Pharmacist: 1 monthlymetFORMIN HCl 500 MG Tablet 1 tablet with a meal Orally twice a day Not-Taking Cosentyx 300 Dose , Notes to Pharmacist: 1 monthlyNot-Taking metFORMIN HCl 500 MG Tablet 1 tablet with a meal Orally twice a day * Allergies: S ulfa AntibioticsTheophyllineCitalopram HydrobromideCefuroxime AxetilCiproCodeine SulfateErythromycin BaselevoFLOXacinTrimethoprimSulfamethoxazoleLidocaineno[Allergies Verified] Objective: * Vitals: I nitials: cv, LMP: hysto, Pain scale:4. Assessment: * Assessment: 1. S chizoaffective disorder - F25.9 Plan: * Treatment: * Recommended Wellness and Pre vention Guidelines: * S tatus A lert L ast Done N ext Due A ction Taken N ONCOMPLIANT A lcohol use screening - 0 07/21/2024 - N ONCOMPLIANT B reast cancer screening - 0 07/21/2024 - N ONCOMPLIANT C holesterol screen (genl pop) - 0 07/21/2024 - N ONCOMPLIANT C olorectal cancer screening - 0 07/21/2024 - N ONCOMPLIANT I nfluenza vaccine (over 50) - 0 07/21/2024 - N ONCOMPLIANT P neumococcal vaccine - 0 07/21/2024 - * Procedure Codes: * Follow Up: 4 Weeks * * LEVELER Sign off status: Completed true * Provider: Miguel Campuzano Date: 0 07/21/2024 Generated for Delilah castle/Vinicio/Hasmukh on: 0 08/11/2024 01:22 PM TAR LEVELER History and Physical Notes * HPI (History of Present Illness) Category Sub-Category Detail Notes Category Not es Depression Screening PHQ9 PHQ-2 (2015 Edition) Little interest or pleasure in doing things?: Not at all Phone session today Reports she has been in [facility] since beginning of March 2024. Pt was in medical hospitaland her Risperdal, Seroquel, Buspar were stopped. Reports feeling depressed because being there . Pt reports she is doing alright. Medications are working. Denies side effects. Sleep is alright. Denies hallucination or delusions. Appetite is alright. Denies SI/HI. Denies manic or hypo manic symptoms. Anxiety is under control. (Pt was inpatient at [facility] total for 22 days .Pt was first on medical floor because she had covid with no symptoms. Pt was paranoid, delusional. She thought she had no insurance, no money, no food and she stopped takin medicines at home and taking care of self. She started declining after she moved to [place] [facility] apartment alone. Pt had he mdications adjusted in hospital and also Risperdal was added. She showed significant improvement with Risperdal.). [facility]. 66 year old sister who on 05/09/21. 93 year old Aunt in August 2021. Her Parents and all siblings are now. (all 5 brothers & 2 sisters are ). Follows [employer] for sleep apnea. On CPAP. Uses BiPAP. On Warfarin. MSE---Alert,Ox4,mood alright. Speech normal. Denies SI/HI. Denies hallucination or delusion. Denies manic or hypo manic symptoms. Insight & judgement alright Feeling down, depressed, or hopeless?: N ot at all Total Score: 0 Depression Screening PHQ-9 Little inte rest or pleasure in doing things: Not at all Feeling down, depressed, or hopeless: No t at all Trouble falling or staying asleep, or sl eeping too much: Several days Feeling tired or having little energy: S everal days Poor appetite or overeating: Not at all Feeling bad about yourself o r that you are a failure, or have let yourself or your family down: Not at all Trouble concentrating on thi ngs, such as reading the newspaper or watching television: More than half the days Moving or speaking so slowly that other people could have noticed; or the opposite, being so fidgety or restless that you have been moving around a lot more than usual: Several days Thoughts that you would be b chris off or of hurting yourself in some way: Not at all Total Score: 5 Interpretation: Mild Depression Screening [place] Suicide Sev erity Rating Scale (LF) Do you want to initiate with: Screener form 1. Wish to be : Have you wished you were or wished you could go to sleep and not wake up?: No 2. Suicidal Thoughts: Have you actually had any thoughts of killing yourself?: No 6. Suicide Behavior Question: Have you ever done anything,started to do anything, or prepared to end your life?: No Interpretation:: Low Risk Preventative Health and Wellness follow-up Action Plans for Clinical Quality Measures: Breast Cancer Screening:: Not addressed during this visit. See notes for details. . Colorectal Cancer Screening: : Not addressed during this visit. See notes for details. CSSRS Interpretation and Follow Up Plan CSSRS Interpretation and Follow Up Plan CSSRS Screen documented using SF: Yes Risk Disposition from SF: Low - No Follo w Up Plan Required Follow Up Plan: No Follow Up Plan requir ed at this time.
--- OUTSIDE RECORDS SUMMARY | 2024-08-11 13:22 | XMS_ITS | Data Portability ---
Author Organization [place] - [facility] OFFICE Address [address] [place] [address] Care Team Providers Care Costume Mistress Name Role Phone KULWINDER BENSON Primary Care [...] current medications, and medical follow-up as noted. [email or web address] Not available 11/01/2021 12:15:18 01/03/2022 01/03/2022 Discussed with patient findings, diagnosis, and prognosis. Discussed evaluation and treatment options including risks and benefits with patient, and patient expressed understanding. The following interventions were recommended: heart healthy low-fat, low-sodium diet, avoid strenuous exercise pending completion of cardiovascular evaluation,mainta in appropriate weight, continue current medications, and medical follow-up as noted. [email or web address] Not available 01/03/2022 18:03:43 02/14/2022 02/14/2022 Discussed with patient findings, diagnosis, and prognosis. Discussed evaluation and treatment options including risks and benefits with patient, and patient expressed understanding. The following interventions were recommended: heart healthy low-fat, low-sodium diet, avoid strenuous exercise pending completion of cardiovascular evaluation,mainta in appropriate weight, continue current medications, and medical follow-up as noted. [email or web address] Not available 02/14/2022 16:02:12 07/18/2022 07/18/2022 Discussed with patient findings, diagnosis, and prognosis. Discussed evaluation and treatment options including risks and benefits with patient, and patient expressed understanding. The following interventions were recommended: heart healthy low-fat, low-sodium diet, continue regular exercise,maintain appropriate weight, continue current medications, and medical follow-up as noted. [email or web address] Not available 07/18/2022 15:58:18 11/14/2022 11/14/2022 Discussed with patient findings, diagnosis, and prognosis. Discussed evaluation and treatment options including risks and benefits with patient, and patient expressed understanding. The following interventions were recommended: heart healthy low-fat, low-sodium diet, continue regular exercise,maintain appropriate weight, continue current medications, and medical follow-up as noted. [email or web address] Not available 11/14/2022 14:46:24 Plan of Treatment Reminders Order Date Submit Date Provider Last Modified By Organization Details Last Modified Time Details Appointments None recorded. Lab None recorded. Referral None recorded. Procedures None recorded. Surgeries None recorded. Imaging None recorded. Medication Orders icosapent ethyl 1 gram capsule [address] [place], [address], 3 14:59:33 furosemide 20 mg tablet [address] [place], [address], 2 16:27:22 potassium chloride ER 10 mEq tablet,exte nded release [address] [place], [address], 3 15:56:08 furosemide 40 mg tablet [address] [place], [address], 3 15:11:23 aspirin 81 mg tablet,brooklyn yed release 2022 023 [email or web address] [facility] [address] [facility], [place], [address], 3 11:32:36 pravastatin 40 mg tablet 2022 023 [facility] [address] , [place], [address], 15:16:09 Patient TargetsNo targets recorded. Patient Instructions Encounter Date Encounter Id Patient Instructions Last Modified By Organization Details Last Modified Time 11/01/2021 [id number] learning about type 2 diabetes [email or web address] Not available 11/01/2021 12:27:21 type 2 diabetes: care instructions Not available 11/01/2021 12:27:21 high cholesterol : care instructions [email or web address] Not available 11/01/2021 12:27:20 learning about low-fat eating [email or web address] Not available 11/01/2021 12:27:21 chronic obstructive pulmonary disease (COPD): care instructions Not available 11/01/2021 12:27:21 learning about copd and how to prevent lung infections [email or web address] Not available 11/01/2021 12:27:21 When You Want to Lose Weight: Care Instructions [email or web address] Not available 11/01/2021 12:27:21 sleep apnea: car e instructions [email or web address] Not available 11/01/2021 12:27:20 atrial fibrillation: care instructions [email or web address] Not available 11/01/2021 12:27:20 hypothyroidism: care instructions [email or web address] Not available 11/01/2021 12:27:21 01/03/2022 [id number] learning about type 2 diabetes [email or web address] Not available 01/03/2022 18:04:53 type 2 diabetes: care instructions [email or web address] Not available 01/03/2022 18:04:53 high cholesterol : care instructions [email or web address] Not available 01/03/2022 18:04:53 learning about low-fat eating [email or web address] Not available 01/03/2022 18:04:53 chronic obstructive pulmonary disease (COPD): care instructions Not available 01/03/2022 18:04:53 learning about copd and how to prevent lung infections Not available 01/03/2022 18:04:53 When You Want to Lose Weight: Care Instructions [email or web address] Not available 01/03/2022 18:04:53 leg and ankle edema: care instructions [email or web address] Not available 01/03/2022 18:04:53 sleep apnea: car e instructions [email or web address] Not available 01/03/2022 18:04:53 atrial fibrillation: care instructions [email or web address] Not available 01/03/2022 18:04:52 hypothyroidism: care instructions Not available 01/03/2022 18:04:53 02/14/2022 [id number] learning about type 2 diabetes [email or web address] Not available 02/14/2022 16:38:13 type 2 diabetes: care instructions [email or web address] Not available 02/14/2022 16:38:13 high cholesterol : care instructions Not available 02/14/2022 16:38:13 learning about low-fat eating [email or web address] Not available 02/14/2022 16:38:13 chronic obstructive pulmonary disease (COPD): care instructions [email or web address] Not available 02/14/2022 16:38:14 learning about copd and how to prevent lung infections [email or web address] Not available 02/14/2022 16:38:13 When You Want to Lose Weight: Care Instructions Not available 02/14/2022 16:38:13 leg and ankle edema: care instructions [email or web address] Not available 02/14/2022 16:38:13 sleep apnea: car e instructions [email or web address] Not available 02/14/2022 16:38:13 atrial fibrillation: care instructions [email or web address] Not available 02/14/2022 16:38:14 hypothyroidism: care instructions [email or web address] Not available 02/14/2022 16:38:13 07/18/2022 [id number] learning about type 2 diabetes [email or web address] Not available 07/18/2022 16:12:12 type 2 diabetes: care instructions [email or web address] Not available 07/18/2022 16:12:12 high cholesterol : care instructions [email or web address] Not available 07/18/2022 16:12:12 learning about low-fat eating [email or web address] Not available 07/18/2022 16:12:12 chronic obstructive pulmonary disease (COPD): care instructions [email or web address] Not available 07/18/2022 16:12:12 learning about copd and how to prevent lung infections [email or web address] Not available 07/18/2022 16:12:12 When You Want to Lose Weight: Care Instructions [email or web address] Not available 07/18/2022 16:12:12 leg and ankle edema: care instructions [email or web address] Not available 07/18/2022 16:12:12 sleep apnea: car e instructions Not available 07/18/2022 16:12:12 atrial fibrillation: care instructions Not available 07/18/2022 16:12:12 hypothyroidism: care instructions [email or web address] Not available 07/18/2022 16:12:12 11/14/2022 [id number] learning about type 2 diabetes Not available 11/14/2022 15:16:03 type 2 diabetes: care instructions Not available 11/14/2022 15:16:03 high cholesterol : care instructions [email or web address] Not available 11/14/2022 15:16:03 learning about low-fat eating [email or web address] Not available 11/14/2022 15:16:03 chronic obstructive pulmonary disease (COPD): care instructions [email or web address] Not available 11/14/2022 15:16:03 learning about copd and how to prevent lung infections [email or web address] Not available 11/14/2022 15:16:03 When You Want to Lose Weight: Care Instructions [email or web address] Not available 11/14/2022 15:16:04 leg and ankle edema: care instructions [email or web address] Not available 11/14/2022 15:16:03 sleep apnea: car e instructions [email or web address] Not available 11/14/2022 15:16:03 atrial fibrillation: care instructions [email or web address] Not available 11/14/2022 15:16:03 hypothyroidism: care instructions [email or web address] Not available 11/14/2022 15:16:04 Reason for Referral [...] ation record ed. [facility] [id number], [place], [address], 02/13/2022 14:57:12 02/14/20 22 02/07/2022 US, echoc [...] Organization Details Recorded Time Coronary arterioscle rosis 07867888 Active 2020 Cardiac cath Mar 2021 25-50% shira saenz lve [place] - [facility] 1 18:35:37 Heart failure with normal ejection fraction 364137728 Active 2021 Franco Lopes [place] - [facility] 2 14:54:17 Edema of lower extremity 830629827 Active 2021 Franco Lopes [place], [place] - [facility] 2 18:04:31 Atrial fibrillatio n 21380772 Active 2016 Sourav [place] [facility] 7 14:07:42 Benign essential hypertensio n 5552967 Active 2016 Sou[place] [facility] 7 14:07:54 Aortic aneurysm 61296413 Active 2016 Sou[place] [facility] 7 14:08:06 Hypothyroid ism 94101309 Active 2016 Sou[place] [facility] 7 14:08:21 Type 2 diabetes mellitus 83382923 Active 2016 Sou[place] [facility] 7 14:08:37 Chronic obstructive pulmonary disease 08892543 Active 2016 Sou[place] [facility] 7 14:08:53 Obstructive sleep apnea syndrome 98330775 Active 2016 Sou[place] [facility] 7 14:09:07 Obesity 157275831 Active 2016 Sou[place] [facility] 7 14:09:43 Bipolar disorder 09174846 Active 2016 [place] [facility] 7 14:09:53 Psoriatic arthritis 900446757 Active 2016 Sou[place] [facility] 7 14:10:13 Asthma 947127727 Active 2016 Gina [place] [facility] 7 11:48:21 Degeneratio n of interverteb ral disc 70308264 Active 2016 Gina [place] [facility] 7 11:48:48 Depressive disorder 20173690 Active 2016 Gina sinha, [place] - [facility] 7 11:48:59 Dyspnea 921872456 [facility] 7 11:51:25 Edema 372587020 Active 2016 [facility] 7 11:51:31 Rectal hemorrhage 95271663 Active 2016 [facility] 7 11:52:02 Congestive heart failure 41040011 Active 2016 [facility] 7 13:45:14 Urine culture - Proteus 688426531 Active 2016 Franco Lopes [facility] 7 13:19:17 Hypercalcem ia 75404724 Active 2017 Franco Lopes [facility] 8 11:49:10 Pain in right lower limb 314742152 Active 2017 Franco Lopes [facility] 8 16:22:02 Hyperlipide javed 60008460 Active 2017 Franco Lopes [facility] 8 16:55:36 Dyspnea on exertion 69870517 Active 2020 Franco Lopes [facility] 1 15:58:43 Problem Notes None recorded. Procedures Surgical History Date Name Laterality Status Provider Name and Address Organization Details Recorded Time Unlisted px foot/toes completed [facility] 06/03/2017 11:50:[address] [facility] 06/03/2017 11:50:[address] [facility] 06/03/2017 11:50:[address] [facility] 06/03/2017 11:50:57 Imaging Results Imaging Date Name Status LastModified by Organization Details LastModified Time 12/06/2021 CT, angiogram, chest, w/ contrast completed Information not available 12/18/2021 11:41:59 01/03/2022 electrocardiogram completed Informa tion not available 01/04/2022 10:23:29 01/19/2022 US, doppler, venous completed Infor mation not available 01/24/2022 11:40:39 02/07/2022 US, echocardiogram completed [facility] [address], [place], [address], 02/13/2022 14:57:12 02/07/2022 US, echocardiogram completed Inform [...] Not available 05/31/2017 4053 RxNorm Sourav Diaz [facility], [facility] 7 14:15:15 5537 levofloxa ricci medicatio n Not available Not available Not available 05/31/2017 76698 RxNorm Sourav Diaz [facility], [facility] 7 14:15:25 5538 Substance with sulfonami de structure and antibacte rial mechanism of action (substanc e) medicatio n Not available Not available Not available 05/31/2017 85544 8003 SNOMED Sourav Diaz [facility], [facility] 7 14:15:33 5539 theophyll ine medicatio n Not available Not available Not available 05/31/2017 62361 RxNorm Sourav Diaz [facility] 7 14:16:31 Medications Name Sig [...] 06/21 completed Patient to stop Vit D. [id number] yahaira to call pt [id number]. Not Available Not Available Not Available hydrocort [...] Not Available No t Available Vitamin D3 98014 1 q week for 8 weeks 09/12 [...] No t Available Lite Touch Insulin Pen [place] 31 gauge x 09/13 completed Not Available [...] Not Available No t Available Fluarix Quad 2781-6421 (PF) 60 mcg (15 mcg x 4)/0.5 [...] Updated DateTime 2 172.72 cm 49 kg/m2 492254. 74 g 88 /min 94 % 94 % 142 mm[Hg] 82 mm[Hg] Joycelyn Robbins [facility] 2 11:28:43 Date Recorded Body height Body mass index (BMI) Body weight Heart rate Oxygen saturation Oxygen saturation in Arterial blood by Pulse oximetry Systolic blood pressure Diastolic blood pressure Provider Name and Address Organization Details Last Updated DateTime 2 172.72 cm 50.9 kg/m2 719643. 44 g 95 /min 94 % 94 % 148 mm[Hg] 82 mm[Hg] Cali Pandey [facility] 2 15:50:44 Date Recorded Body height Body mass index (BMI) Body weight Heart rate Respiratory rate Oxygen saturation Oxygen saturation in Arterial blood by Pulse oximetry Inhaled oxygen flow rate Systolic blood pressure Diastolic blood pressure Provider Name and Address Organization Details Last Updated DateTime 2 172.72 cm 50.8 kg/m2 862036. 85 g 102 /min 16 /min 91 % 91 % 2 L/min 132 mm[Hg] 68 mm[Hg] Cali Pandey [facility] 2 15:24:30 Date Recorded Body height Body mass index (BMI) Body weight Heart rate Respiratory rate Oxygen saturation Oxygen saturation in Arterial blood by Pulse oximetry Systolic blood pressure Diastolic blood pressure Provider Name and Address Organization Details Last Updated DateTime 3 172.72 cm 48.4 kg/m2 692064. 37 g 88 /min 16 /min 93 % 93 % 132 mm[Hg] 82 mm[Hg] Cali Pandey [facility] 3 14:39:23 Date Recorded Body height Body mass index (BMI) Body weight Oxygen saturation Oxygen saturation in Arterial blood by Pulse oximetry Heart rate Systolic blood pressure Diastolic blood pressure Provider Name and Address Organization Details Last Updated DateTime 3 172.72 cm 43.7 kg/m2 617204. 52 g 92 % 92 % 78 /min 122 mm[Hg] 84 mm[Hg] TAMMY VISHAL [facility] 3 14:22:56 Social History Question Answer Notes LastModified by Organizat ion Details LastModified Time Tobacco Smoking Status Never Smoker Second hand smoker Not Available [facility] 05/03/2020 03:30:41 What Is Your Level Of Alcohol Consumption? None [id number] Information not available 05/03/2020 What Is Your Level Of Caffeine Consumption? Occasional [id number] Information not available 05/03/2020 How Much Tobacco Do You Chew? None [id number] Information not available 05/03/2020 What Type Of Diet Are You Following? DIABETIC [id number] Information not available 05/03/2020 Which Illicit Or Recreational Drugs Have You Used? No [id number] Information not available 05/03/2020 Do You Or Have You Ever Used E-cigarettes Or Vape? Never Used Electronic Cigarettes [id number] Information not available 05/03/2020 Live Alone Or With Others? Alone [email or web address] Information not available 06/03/2017 Marital Status [email or web address] Informatio n not available 06/03/2017 What Was The Date Of Your Most Recent Tobacco Screening? 12/08/2018 [id number] Information not available 05/03/2020 How Many Children Do You Have? 3 [id number] Information not available 05/03/2020 Do You Or Have You Ever Used Smokeless Tobacco? Never Used Smokeless Tobacco [id number] Information not available 05/03/2020 How Much Tobacco Do You Smoke? No [id number] Information not available 05/03/2020 General Stress Level Low [email or web address] Information not available 06/03/2017 How Many Years Have You Smoked Tobacco? 0 [id number] Information not available 05/03/2020 Sex: Unknown Functional Status Question Answer Note LastModified by Organization D etails LastModified Time What is your exercise level? None [id number] Information not available 05/03/2020 Mental Status None recorded. Family History Relationship Description Onset Age of this Age Resolved Age Notes LastModified by Organization Details LastModified Time Father Intracranial aneurysm [email or web address] Not available 2016 14:12:50 Father Heart disease [email or web address] Not available 2016 11:49:19 Father Myocardial infarction Not available 06/03 11:49:24 Mother Diabetes mellitus Not available 2016 11:49:36 Sister Diabetes mellitus [email or web address] Not available 2016 11:49:36 Sister Hypercholest erolemia Not available 2016 11:49:45 Medical History Condition Response Diabetes Y Thyroid Disease Y Atrial Fibrillation Y Sleep Apnea Y Aortic Aneurysm Y Hypertension Y COPD Y Gynecological HistoryNo gynecological history recorded. Obstetrics History GPAL:G 0 P 0 0 0 0 Past Encounters Encounter ID Performer Location Encounter Start Date Encounter Closed Date Diagnosis/Indication Diagnosis SNOMED-CT Code Diagnosis ICD10 Code Diagnosis Note [id number] Franco Lopes [facility] [address] [place] [address] 06/03/2017 11:08:04 06/04/2017 10:26:41 Benign essential hypertension 7124937 I10 Patient's blood pressure is {{well-con trolled* [...] less daily). Type 2 eliazar betes mellitus 78297804 E11.59 Discussed importance of tight glycemic control to minimize cardiovasc ular disease progressio n. Atrial fibrillation 4943 6004 I48.91 EKG today with atrial fibrillati on with HR 93 bpm. Needs eventual outpatient Lexiscan to exclude ischemia as cause of afib. Resume Coumadin 2 mg qHS. Pt to call if bleeding resumes. INR in 4 days. Aortic aneurysm 44685432 I71.[address] Obstructiv e sleep apnea syndrome 94623278 G47.33 On CPAP. Congestive heart failure 03799061 I50.9 Pt with HF-pEF. Pt reports increased B LE edema since discharge and had increased to Lasix 40 mg bid 05/31/17. Increased from 40 mg bid to 80 mg bid and added metolazone 2.5 mg qd. 06/03/17. BMP 4 days. RTC 1 wk. [id number] Franco Lopes [facility] [address] [place] [address] 06/17/2017 10:39:30 06/17/2017 16:07:22 Benign essential hypertension 9039963 I10 Patient's blood pressure is {{well-con trolled* [...] untill digoxin level assessed. Congestive heart failure 48325330 I50.9 Pt with HF-pEF. Currently euvolemic. Pt [...] 1 week. Type 2 eliazar betes mellitus 04969653 E11.59 Discussed importance of tight glycemic control to minimize cardiovasc ular disease progressio n. Aortic aneurysm 51389326 I71.[address] Obstructiv e sleep apnea syndrome 44367987 G47.33 On CPAP. [id number] Franco Lopes [facility] [address] [place] [address] 06/26/2017 11:44:16 06/27/2017 10:04:12 Benign essential hypertension 5237236 I10 Patient's blood pressure is {{well-con trolled* [...] 1 week. Continue digoxin. Congestive heart failure 75656739 I50.9 Pt with HF-pEF. Currently euvolemic. Pt [...] supplement . Type 2 eliazar betes mellitus 49557542 E11.59 Discussed importance of tight glycemic control to minimize cardiovasc ular disease progressio n. Aortic aneurysm 45167014 I71.[address] Heart healthy, low-fat, low-choles terol, diabetic diet, with glass sagger consult. Obstructiv e sleep apnea syndrome 24142662 G47.33 On CPAP. Urine cult ure - Proteus 226617886 R82.79 She reports nausea for 3 weeks and bilateral inguinal discomfort for 1 week without dysuria, with reduced urine output and elevated Cr. Had urine culture 06/19/17 with >100,000 cfu/mL Proteus mirabilis. Patient needs follow-up with PCP KAYA. Began Augmentin 875/125 mg bid for 7 days. Repeat CMP for Cr and Ca/Mg in 10 days. [id number] Franco Lopes [facility] [address] [place] [address] 07/10/2017 11:11:43 07/11/2017 10:30:51 Benign essential hypertension 5789882 I10 Patient's blood pressure is {{well-con trolled* [...] 07/10/17 for Mg 1.1. Congestive heart failure 02808450 I50.9 Pt with HF-pEF. Currently euvolemic. Pt [...] supplement . Type 2 eliazar betes mellitus 69742642 E11.59 Discussed importance of tight glycemic control to minimize cardiovasc ular disease progressio n. Aortic aneurysm 52698006 I71.[address] Heart healthy, low-fat, low-choles terol, diabetic diet, with glass sagger consult. Obstructiv e sleep apnea syndrome 81496311 G47.33 On CPAP. Continue. Tolerating . Urine cult ure - Proteus 052002977 R82.79 She reports nausea for 3 weeks and bilateral inguinal discomfort for 1 week without dysuria, with reduced urine output and elevated Cr. Had urine culture 06/19/17 with >100,000 cfu/mL Proteus mirabilis. Patient needs follow-up with PCP KAYA. Completed Augmentin 875/125 mg bid for 7 days. Hypercalcemia 62976278 E 83.52 Ca improved to 12.4 off Vit D and with increased hydration, but calcium remains elevated. PCP instructed to f/u with PCP. CMP/Mg in 2 weeks. Franco [facility] [address] [place] [address] 08/08/2017 14:35:22 08/08/2017 16:37:44 Benign essential hypertension 4051788 I10 Patient's blood pressure is {{well-con trolled* [...] 400 mg bid 08/08/17. Congestive heart failure 45919153 I50.9 Pt with HF-pEF. Currently euvolemic. Had [...] 11.3, M.2. Type 2 eliazar betes mellitus 94970801 E11.59 Discussed importance of tight glycemic control to minimize cardiovasc ular disease progressio n. Aortic aneurysm 90331819 I71.9 Stable on CTscan 03/27/17: fusiform aneurysm of ascending aorta 4.2x4.1 cm. Heart healthy, low-fat, low-choles terol, diabetic diet, with glass sagger consult. Obstructiv e sleep apnea syndrome 64338617 G47.33 On CPAP. Continue. Tolerating . Urine cult ure - Proteus 724554373 R82.79 She reports nausea for 3 weeks and bilateral inguinal discomfort for 1 week without dysuria, with reduced urine output and elevated Cr. Had urine culture 06/19/17 with >100,000 cfu/mL Proteus mirabilis. Patient needs follow-up with PCP KAYA. Completed Augmentin 875/125 mg bid for 7 days. Hypercalcemia 40892326 E 83.52 Ca improved to 12.4 off Vit D and with increased hydration, but calcium remains elevated. Had 08/08/17: Ca 11.3. Pt instructed to f/u with PCP or endocrinol ogist for workup of hypercalce javed and possible parathyroi d disease. CMP/Mg in 4 weeks. Pain in ri ght lower limb 626207174 M79.604 Mild edema and pain right posterior knee and leg. Obtain LE Doppler. [id number] Franco Bahhman [facility] [address] [place] [address] 09/18/2017 14:53:43 09/25/2017 15:10:13 Essential hypertension 07365271 I10 Patient's blood pressure is {{well-con trolled* [...] less daily). Chronic ob structive pulmonary disease 09721076 J44.9 On Oxygen 1-2 L NC Type 2 eliazar betes mellitus 73034317 E11.59 Discussed importance of tight glycemic control [...] Mg 1.4 09/11/17. Atypical chest pain 1025 17126 R07.89 Atypical. Intermitte nt chest pain which [...] GERD or diabetic gastropare sis. Aortic aneurysm 74789122 I71.[address] scan 03/27/17: fusiform aneurysm of ascending aorta 4.2x4.1 cm. Heart healthy, low-fat, low-choles terol, diabetic diet, with glass sagger consult. Hyperlipidemia 02063831 E78.5 Needs to keep LDL less than 70, and HDL more than 40. Obtain FLP. 31779 [facility] OFFICE [address] [place] [address] 11/18/2017 16:10:22 11/18/2017 17:41:52 Atypical chest pain [id number] R07.89 Resolved. Had Dobutamine Myocardial Perfusion Study [...] GERD or diabetic gastropare sis. Essential hypertension 84588720 I10 Patient's blood pressure is {{well-con trolled* [...] per PCP. Chronic ob structive pulmonary disease 73722620 J44.9 On Oxygen 1-2 L NC. Needs f/u with pulm. for considerat ion of bronchodil ator therapy. Type 2 eliazar betes mellitus 13161933 E11.59 Discussed importance of tight glycemic control to minimize cardiovasc ular disease progressio n. Aortic aneurysm 06050607 I71.[address] scan 03/27/17: fusiform aneurysm of ascending aorta 4.2x4.1 cm. Needs [address] f/u as per PCP 03/2018. Heart healthy, low-fat, low-choles terol, diabetic diet, with glass sagger consult. Hyperlipidemia 09194731 E78.5 Needs to keep LDL less than 70, and HDL more than 40. Had LDL 92 10/01/17. Patient wants to talk to PCP before starting statin. Obstructiv e sleep apnea syndrome 64258103 G47.33 On CPAP. Continue. Needs to resume while waiting on new mask. 08494 Franco Lopes [facility] OFFICE [facility] [place] [address] 12/02/2017 16:26:52 12/02/2017 18:51:29 Atypical chest pain 101225947 R07.89 Resolved. Had Dobutamine Myocardial Perfusion Study [...] GERD or diabetic gastropare sis. Essential hypertension 33806341 I10 Patient's blood pressure is {{well-con trolled [...] CMP, Mg. Chronic ob structive pulmonary disease 41715088 J44.9 On Oxygen 1-2 L NC. Needs f/u with pulm. for considerat ion of bronchodil ator therapy. Type 2 eliazar betes mellitus 40298271 E11.59 Discussed importance of tight glycemic control to minimize cardiovasc ular disease progressio n. Aortic aneurysm 77594318 I71.[address] scan 03/27/17: fusiform [...] healthy, low-fat, low-choles terol, diabetic diet, with glass sagger consult. Hyperlipidemia 25898762 E78.5 Needs to keep LDL less than 70, and HDL more than 40. Had LDL 92 10/01/17. Began atorvastat in 20mg qHS 12/02/17. Obstructiv e sleep apnea syndrome 74280116 G47.33 On CPAP. Continue. Needs to resume while waiting on new mask. 24399 Franco Moses [facility] OFFICE [address] [place] [address] 01/22/2018 15:59:36 01/23/2018 18:49:41 Atypical chest pain 505738864 R07.89 Resolved. Had Dobutamine Myocardial Perfusion Study [...] GERD or diabetic gastropare sis. Essential hypertension 24838422 I10 Patient's blood pressure is {{well-con trolled [...] increased Cr. Chronic ob structive pulmonary disease 55133708 J44.9 On Oxygen 1-2 L NC. Needs f/u with pulm. Type 2 eliazar betes mellitus 56996322 E11.59 Discussed importance of tight glycemic control to minimize cardiovasc ular disease progressio n. Aortic aneurysm 37628378 I71.[address] scan 03/27/17: fusiform [...] healthy, low-fat, low-choles terol, diabetic diet, with glass sagger consult. Hyperlipidemia 86192155 E78.5 Needs to keep LDL less than 70, and HDL more than 40. Had LDL 92 10/01/17. Had 01/02/18: TC 192, HDL 30, TG 274, LDL 120, CK 21. Began atorvastat in 20mg qHS 01/22/18. FLP 1 mo. Obstructiv e sleep apnea syndrome 75583148 G47.33 On CPAP. Continue. Followed by pulmonolog ist. 71492 Franco Lopes [facility] OFFICE [facility] [place] [address] 04/02/2018 14:49:32 04/02/2018 17:14:31 Hyperlipidemia 37214011 E78.5 Needs to keep LDL less than 70, and HDL more than 40. Had LDL 92 10/01/17. Had 01/02/18: TC 192, HDL 30, TG 274, LDL 120, CK 21. Began atorvastat in 20 mg qHS 01/22/18. Had FLP 02/19/18: TG 224, LDL 72. Patient does not want to increase statin at this time. Atypical chest pain 1025 98073 R07.89 Stable. Atypical. Had Dobutamine Myocardial Perfusion [...] GERD, or diabetic gastropare sis. Essential hypertension 68795612 I10 Patient's blood pressure is {{well-con trolled* [...] and EKG. Coumadin changed. INR 1.9 per [facility]. Continue digoxin. Began MgOxide 07/10/17 for Mg [...] Mg 1.9. Chronic ob structive pulmonary disease 38392108 J44.9 On Oxygen 1-2 L NC. Needs f/u with pulm. Type 2 eliazar betes mellitus 65291715 E11.59 Discussed importance of tight glycemic control to minimize cardiovasc ular disease progressio n. Aortic aneurysm 66450950 I71.[address] scan 03/27/17: fusiform [...] healthy, low-fat, low-choles terol, diabetic diet, with glass sagger consult. Obstructiv e sleep apnea syndrome 89891083 G47.33 On CPAP. Continue. Followed by pulmonolog ist. 79791 Franco Bahhman [facility] OFFICE [address] [place] [address] 10/01/2018 15:41:45 10/01/2018 17:17:11 Hyperlipidemia 64836476 E78.5 Needs to keep LDL less than [...] FLP 1 mo. Atypical chest pain 1025 74877 R07.89 Improved. Atypical. Had Dobutamine Myocardial Perfusion [...] GERD, or diabetic gastropare sis. Essential hypertension 61435786 I10 Patient's blood pressure is {{well-con trolled* [...] and EKG. Coumadin changed. INR 2.0 per [facility]. Continue digoxin. Began MgOxide 07/10/17 for Mg [...] HgbA1C 10.5%, Chronic ob structive pulmonary disease 54263804 J44.9 On Oxygen 1-2 L NC prn. Needs f/u with pulm. Type 2 eliazar betes mellitus 98028139 E11.59 Discussed importance of tight glycemic control to minimize cardiovasc ular disease progressio n. Aortic aneurysm 31758833 I71.[address] of chest 06/26/18: [...] healthy, low-fat, low-choles terol, diabetic diet, with glass sagger consult. Obtain chest CT early 2019. Obstructiv e sleep apnea syndrome 91889395 G47.33 On BiPAP. Continue. Followed by pulmonolog ist. Obesity 990202856 E66.9 20 lb. weight loss recommende d over the next 2 months. Hypothyroidism 58924407 E03.9 Medication changed recently per endocrinol ogist. Had 08/2018: free T4 0.8 normal. [facility] [facility] [address] [place] [address] 12/08/2018 15:22:53 12/08/2018 17:14:42 Hyperlipidemia 56826543 E78.5 Needs to keep LDL less than [...] gm bid 12/08/18. Atypical chest pain 1025 23265 R07.89 Improved. Atypical. Had Dobutamine Myocardial Perfusion [...] GERD, or diabetic gastropare sis. Essential hypertension 45958549 I10 Patient's blood pressure is {{well-con trolled* [...] and EKG. Coumadin changed. INR 1.9 per [facility]. Continue digoxin. Began MgOxide 07/10/17 for Mg [...] HgbA1C 10.5%, Chronic ob structive pulmonary disease 73260405 J44.9 On Oxygen 1-2 L NC prn. Needs f/u with pulm. Type 2 eliazar betes mellitus 54656641 E11.59 Discussed importance of tight glycemic control to minimize cardiovasc ular disease progressio n. Aortic aneurysm 44019736 I71.[address] of chest 06/26/18: [...] healthy, low-fat, low-choles terol, diabetic diet, with glass sagger consult. Obtain chest CT early 2019. Obstructiv e sleep apnea syndrome 41421996 G47.33 On BiPAP. Continue. Followed by pulmonolog ist. Obesity 987118511 E66.9 20 lb. weight loss recommende d over the next 2 months. Hypothyroidism 58104880 E03.9 Medication changed recently per endocrinol ogist. Had 08/2018: free T4 0.8 normal. 44649 [facility] OFFICE [facility] [place] [address] 04/08/2019 15:48:06 04/08/2019 16:48:51 Hyperlipidemia 34340206 E78.5 Needs to keep LDL less than [...] gm bid 12/08/18. Atypical chest pain 1025 94022 R07.89 Improved. Atypical. Had Dobutamine Myocardial Perfusion [...] GERD, or diabetic gastropare sis. Essential hypertension 32934210 I10 Patient's blood pressure is {{well-con trolled* [...] HgbA1C 10.5%, Chronic ob structive pulmonary disease 00725171 J44.9 On Oxygen 1-2 L NC prn. Needs f/u with pulm. Type 2 eliazar betes mellitus 78195677 E11.59 Discussed importance of tight glycemic control to minimize cardiovasc ular disease progressio n. Aortic aneurysm 57630689 I71.9 Stable. We may use 2D echo [...] healthy, low-fat, low-choles terol, diabetic diet, with glass sagger consult. Obtain chest CT early 2019. Obstructiv e sleep apnea syndrome 58524678 G47.33 On BiPAP. Continue. Followed by pulmonolog ist. Obesity 465695315 E66.9 20 lb. weight loss recommende d over the next 2 months. Hypothyroidism 72515006 E03.9 Medication changed recently per endocrinol ogist. Had 08/2018: free T4 0.8 normal. Benign hypertension 1072 5009 I10 89426 [facility] OFFICE [address] [place] [address] 01/25/2020 16:04:16 01/25/2020 19:14:21 Hyperlipidemia 48099170 E78.5 Needs to keep LDL less than [...] gm bid 12/08/18. Atypical chest pain 1025 86704 R07.89 Improved. Atypical. Had Dobutamine Myocardial Perfusion [...] GERD, or diabetic gastropare sis. Essential hypertension 99078752 I10 Patient's blood pressure is {{well-con trolled* [...] HgbA1C 10.5%, Chronic ob structive pulmonary disease 82675696 J44.9 On Oxygen 1-2 L NC prn. Needs f/u with pulm. Type 2 eliazar betes mellitus 03826826 E11.59 Discussed importance of tight glycemic control to minimize cardiovasc ular disease progressio n. Aortic aneurysm 93934578 I71.9 Stable. aorta measures 4.3 cm on [...] healthy, low-fat, low-choles terol, diabetic diet, with glass sagger consult. Obtain chest CT early 2019. Obstructiv e sleep apnea syndrome 68806980 G47.33 On BiPAP. Continue. Followed by pulmonolog ist. Obesity 244886025 E66.9 20 lb. weight loss recommende d over the next 2 months. Hypothyroidism 58954050 E03.9 Medication changed recently per endocrinol ogist. Had 08/2018: free T4 0.8 normal. Benign hypertension 1072 5009 I10 07271 [facility] OFFICE [address] [place] [address] 07/13/2020 14:52:41 07/13/2020 16:13:43 Hyperlipidemia 14641336 E78.5 Needs to keep LDL less than [...] patient. Obtain FLP. Atypical chest pain 1025 85335 R07.89 Atypical. Had Dobutamine Myocardial Perfusion Study 07/30/17 : Negative dobutamine stress test for ischemia. Normal LV systolic function. Abnormal stress test. Artifact noted. No previous study to compare. LVEF >60%. Consider costochond ritis, GERD, or diabetic gastropare sis. Essential hypertension 18435933 I10 Patient's blood pressure is {{well-con trolled* [...] HgbA1C 10.5%, Chronic ob structive pulmonary disease 31855301 J44.9 Needs f/u with pulm. Type 2 eliazar betes mellitus 26921150 E11.59 Discussed importance of tight glycemic control to minimize cardiovasc ular disease progressio n. Aortic aneurysm 11757332 I71.9 Stable. aorta measures 4.3 cm on [...] healthy, low-fat, low-choles terol, diabetic diet, with glass sagger consult. Obtain chest CTA 08/2020, delayed pending reduction in COVID-19 risk. Obstructiv e sleep apnea syndrome 16566421 G47.33 On BiPAP. Continue. Followed by pulmonolog ist. Obesity 833486142 E66.9 20 lb. weight loss recommende d over the next 2 months. Hypothyroidism 98834814 E03.9 PCP now following. Had 08/2018: free [...] PCR positive 06/20/20 testing at [facility]. Urgent Care. Obtain CXR PA and [...] No previous study to compare. LVEF >60%. 09171 [facility] OFFICE [address] [place] [address] 11/30/2020 14:36:37 12/21/2020 11:37:12 Dyspnea on exertion 31682019 R06.09 Patient presents with {{chest* a rm [...] previous study to compare. LVEF >60%. Hyperlipidemia 54519321 E78.5 Needs to keep LDL less than [...] Mg, CPK, TSH. Atypical chest pain 1025 11164 R07.89 Exertional . Obtain stress test as above. Had Dobutamine Myocardial Perfusion Study 07/30/17 : Negative dobutamine stress test for ischemia. Normal LV systolic function. Abnormal stress test. Artifact noted. No previous study to compare. LVEF >60%. Consider costochond ritis, GERD, or diabetic gastropare sis. Essential hypertension 77917583 I10 Patient's blood pressure is {{well-con trolled [...] and HTN. Chronic ob structive pulmonary disease 53218184 J44.9 Needs f/u with pulm. Type 2 eliazar betes mellitus 04606732 E11.59 Discussed importance of tight glycemic control to minimize cardiovasc ular disease progressio n. Aortic aneurysm 11283710 I71.9 Stable. Aorta measures 4.3 cm on [...] healthy, low-fat, low-choles terol, diabetic diet, with glass sagger consult. Optimize BP and cholestero l control., Obtain next chest CTA 11/23/2021. Obstructiv e sleep apnea syndrome 53241633 G47.33 On BiPAP. Continue. Followed by pulmonolog ist. She had titration study. Obesity 738098118 E66.9 20 lb. weight loss recommende d over the next 2 months. Hypothyroidism 76923835 E03.9 PCP now following. Had 08/2018: free T4 0.8 normal. Obtain TSH. 20095 Franco Bahhman [facility] OFFICE [address] [place] [address] 02/22/2021 12:36:22 02/22/2021 14:34:49 Dyspnea on exertion 24603127 R06.09 Patient presents with {{chest* a rm [...] . The patient agrees to proceed at [facility]. #####Stop Coumadin 5 days prior to the procedure. Reduce Basaglar to 1/2 usual dose PM evening before [facility], and hold in AM of [facility]. The procedure was discussed with the patient, [...] weeks, so she needs to resume. Hyperlipidemia 03746270 E78.5 Needs to keep LDL less than [...] 160, LDL 66 Atypical chest pain 1025 66546 R07.89 Exertional . Had dobutamine nuclear stress [...] GERD, or diabetic gastropare sis. Essential hypertension 83391291 I10 Patient's blood pressure is {{well-con trolled [...] and HTN. Chronic ob structive pulmonary disease 57906438 J44.9 Needs f/u with pulm. Type 2 eliazar betes mellitus 00867916 E11.59 Discussed importance of tight glycemic control to minimize cardiovasc ular disease progressio n. Aortic aneurysm 03236335 I71.9 Stable. Aorta measures 4.3 cm on [...] healthy, low-fat, low-choles terol, diabetic diet, with glass sagger consult. Optimize BP and cholestero l control., Obtain next chest CTA 11/23/2021. Obstructiv e sleep apnea syndrome 29344554 G47.33 On BiPAP. Continue. Followed by pulmonolog ist. She had titration study. Obesity 879896154 E66.9 20 lb. weight loss recommende d over the next 2 months. Hypothyroidism 19784319 E03.9 PCP now following. Had 08/2018: free T4 0.8 normal. Obtained normal TSH 12/2020. 02389 Darell Lozada MD [facility] OFFICE [address] [place] [address] 04/04/2021 15:24:28 04/04/2021 16:14:58 Dyspnea on exertion 52109495 R06.09 with negative cathOSA treatment and follow up Hyperlipidemia 19922144 E78.5 Needs to keep LDL less than [...] 160, LDL 66 Atypical chest pain 1025 55162 R07.89 Exertional . Had dobutamine nuclear stress [...] GERD, or diabetic gastropare sis. Essential hypertension 25741935 I10 Seems to be well compensate d [...] bid 08/08/17. Chronic ob structive pulmonary disease 14333865 J44.9 Needs f/u with pulm. Type 2 eliazar betes mellitus 62427840 E11.59 Discussed importance of tight glycemic control to minimize cardiovasc ular disease progressio n. Aortic aneurysm 59094880 I71.9 Stable. Aorta measures 4.3 cm on [...] healthy, low-fat, low-choles terol, diabetic diet, with glass sagger consult. Optimize BP and cholestero l control., Obtain next chest CTA 11/23/2021. Obstructiv e sleep apnea syndrome 93912816 G47.33 On BiPAP. Continue. Followed by pulmonolog ist. She had titration study. Obesity 988450961 E66.9 20 lb. weight loss recommende d over the next 2 months. Hypothyroidism 48550998 E03.9 PCP now following. Had 08/2018: free T4 0.8 normal. Obtained normal TSH 12/2020. 70813 Franco Bahhman [facility] OFFICE [address] [place] [address] 08/30/2021 12:39:30 08/30/2021 15:11:59 Dyspnea on exertion 24794117 R06.09 ALIVIA treatment and follow up Hyperlipidemia 29169462 E78.5 Needs to keep LDL less than [...] in the past. Atypical chest pain 1025 39418 R07.89 Exertional . Had catheteriz ation straight [...] GERD, or diabetic gastropare sis. Essential hypertension 22637408 I10 Seems to be well compensate d [...] bid 08/08/17. Chronic ob structive pulmonary disease 22300031 J44.9 Needs f/u with pulm. Type 2 eliazar betes mellitus 30034906 E11.59 Discussed importance of tight glycemic control to minimize cardiovasc ular disease progressio n. Aortic aneurysm 63862186 I71.9 Stable. Aorta measures 4.3 cm on [...] healthy, low-fat, low-choles terol, diabetic diet, with glass sagger consult. Optimize BP and cholestero l control., Obtain next chest CTA 11/23/2021. Obstructiv e sleep apnea syndrome 28479785 G47.33 On BiPAP. Continue. Followed by pulmonolog ist. She had titration study. Obesity 337308130 E66.9 20 lb. weight loss recommende d over the next 2 months. Hypothyroidism 50222273 E03.9 PCP now following. Had 08/2018: free T4 0.8 normal. Obtained normal TSH 12/2020. Coronary arteriosclerosis 61531471 I25.10 Mild CAD. Had catheteriz ation straight - procedure (PROC) 03/27/21: Mild CAD (mLAD 25% stenosis, ostial D1 50%). Normal left ventricula r function. Elevated left ventricula r end-diasto lic pressure. Not on ASA given mild CAD and need for Coumadin for afib. Needs to keep LDL less than 70, and HDL more than 40. Heart fail ure with normal ejection fraction 639428348 I50.33 Had catheteriz ation straight - procedure [...] doing. Obtain CMP, Mg, CBC, TSH, FLP. 84159 Franco [facility]hman [facility] OFFICE [address] [place] [address] 11/01/2021 11:17:11 11/01/2021 12:34:14 Dyspnea on exertion 09512907 R06.09 ALIVIA treatment and follow up Hyperlipidemia 97680886 E78.5 Needs to keep LDL less than [...] gm bid 11/01/21. Atypical chest pain 1025 93261 R07.89 Improved. Had catheteriz ation straight - [...] ASA in setting of warfarin. Essential hypertension 86390732 I10 Patient's blood pressure is {{well-con trolled [...] bid 08/08/17. Chronic ob structive pulmonary disease 08396429 J44.9 Needs f/u with pulm. Type 2 eliazar betes mellitus 20042946 E11.59 Discussed importance of tight glycemic control to minimize cardiovasc ular disease progressio n. Aortic aneurysm 83559116 I71.9 Stable. Aorta measures 4.3 cm on [...] healthy, low-fat, low-choles terol, diabetic diet, with glass sagger consult. Optimize BP and cholestero l control., Obtain chest CTA 10/2021. Obstructiv e sleep apnea syndrome 35512822 G47.33 On BiPAP. Continue. Followed by pulmonolog ist. She had titration study. Obesity 288309003 E66.9 20 lb. weight loss recommende d over the next 2 months. Hypothyroidism 09504565 E03.9 PCP now following. Had 08/2018: free T4 0.8 normal. Obtained normal TSH 12/2020. Coronary arteriosclerosis 49571993 I25.10 Mild CAD. Had catheteriz ation straight - procedure (PROC) 03/27/21: Mild CAD (mLAD 25% stenosis, ostial D1 50%). Normal left ventricula r function. Elevated left ventricula r end-diasto lic pressure. Not on ASA given mild CAD and need for Coumadin for afib. Needs to keep LDL less than 70, and HDL more than 40. Heart fail ure with normal ejection fraction 929969370 I50.33 Had catheteriz ation straight - procedure [...] 08/30/21. Eat daily banana as is doing. [address] Franco Bahhman [facility] OFFICE [address] [place] [address] 01/03/2022 15:43:25 01/03/2022 18:14:37 Dyspnea on exertion 76041889 R06.09 Increased. In setting of acute on [...] d over the next 2 months. Hyperlipidemia 14823204 E78.5 Needs to keep LDL less than [...] gm bid 11/01/21. Atypical chest pain 1025 44949 R07.89 Improved. Had catheteriz ation straight - procedure (PROC) 03/27/21:Mi ld CAD (mLAD 25% stenosis, ostial D1 50%). Normal left ventricula r function. Elevated left ventricula r end-diasto lic pressure. Had dobutamine nuclear stress 01/10/21: positive for ischemia, with partially reversible defect in kai-api kanann and septal areas (new c/w 07/30/17), LVEF [...] ASA in setting of warfarin. Essential hypertension 30672876 I10 Patient's blood pressure is {{well-con trolled [...] bid 08/08/17. Chronic ob structive pulmonary disease 37881468 J44.9 Needs f/u with pulm. Type 2 eliazar betes mellitus 57926860 E11.59 Discussed importance of tight glycemic control to minimize cardiovasc ular disease progressio n. Aortic aneurysm 74290118 I71.9 Stable. Aorta measures 4.3 cm on [...] healthy, low-fat, low-choles terol, diabetic diet, with glass sagger consult. Optimize BP and cholestero l control., Obtain chest CTA 11/2022. Obstructiv e sleep apnea syndrome 42536211 G47.33 On BiPAP. Continue. Followed by pulmonolog ist. She had titration study. Obesity 934036748 E66.9 20 lb. weight loss recommende d over the next 2 months. Hypothyroidism 46703462 E03.9 PCP now following. Had 08/2018: free T4 0.8 normal. Obtained normal TSH 12/2020. Coronary arteriosclerosis 52763671 I25.10 Mild CAD. Had catheteriz ation straight - procedure (PROC) 03/27/21: Mild CAD (mLAD 25% stenosis, ostial D1 50%). Normal left ventricula r function. Elevated left ventricula r end-diasto lic pressure. Not on ASA given mild CAD and need for Coumadin for afib. Needs to keep LDL less than 70, and HDL more than 40. Heart fail ure with normal ejection fraction 916948271 I50.33 Had catheteriz ation straight - procedure [...] leg edema, obtain LE venous Doppler at [place]. Had 12/29/21: Cr 0.93, K 4.5, Mg 1.9 BMP, Mg 2 wks. Edema of l ower extremity 325322285 R60.0 For left posterior knee pain and leg edema, obtain LE venous Doppler at [place]. [address] Franco Lopes [facility] OFFICE [address] [place] [address] 02/14/2022 15:05:40 02/14/2022 16:42:24 Dyspnea on exertion 67368259 R06.09 Increased. In setting of acute on [...] d over the next 2 months. Hyperlipidemia 39702414 E78.5 Needs to keep LDL less than [...] gm bid 11/01/21. Atypical chest pain 1025 01090 R07.89 Improved. Had catheteriz ation straight - [...] ASA in setting of warfarin. Essential hypertension 49492187 I10 Patient's blood pressure is {{well-con trolled [...] bid 08/08/17. Chronic ob structive pulmonary disease 59954028 J44.9 Needs f/u with pulm. Type 2 eliazar betes mellitus 23367215 E11.59 Discussed importance of tight glycemic control to minimize cardiovasc ular disease progressio n. Aortic aneurysm 16173544 I71.9 Stable. Aorta measures 4.0-4.3 cm on [...] healthy, low-fat, low-choles terol, diabetic diet, with glass sagger consult. Optimize BP and cholestero l control., Obtain chest CTA 11/2022. Obstructiv e sleep apnea syndrome 30390404 G47.33 On BiPAP. Continue. Followed by pulmonolog ist. She had titration study. Obesity 791796523 E66.9 20 lb. weight loss recommende d over the next 2 months. Hypothyroidism 44759136 E03.9 PCP now following. Had 08/2018: free T4 0.8 normal. Obtained normal TSH 12/2020. Had 10/18/21: INR 2.3, HDL 42, TG 169, LDL 69, Cr 1.07, K 4.6, Mg 1.9, TSH 2.7, hgb 13.7 Coronary arteriosclerosis 41312062 I25.10 Mild CAD. Had catheteriz ation straight - procedure (PROC) 03/27/21: Mild CAD (mLAD 25% stenosis, ostial D1 50%). Normal left ventricula r function. Elevated left ventricula r end-diasto lic pressure. Not on ASA given mild CAD and need for Coumadin for afib. Needs to keep LDL less than 70, and HDL more than 40. Heart fail ure with normal ejection fraction 606245612 I50.33 Had catheteriz ation straight - procedure [...] qd 02/14/22. Edema of l ower extremity 615236367 R60.0 Increased L>R leg since mid-December 2021. Had 02/07/22 US, echocardio gram: LV chamber size is normal. There is normal global systolic function and contractil ity. The estimated left ventricle ejection fraction is 55-60% (normal). Had US, doppler, venous 01-19-2022 : Negative left-sided venous Doppler study. Increased from Lasix 20 mg qd to 40 mg qd 02/14/22. Obtain BMP, Mg 3 wks. 43911 Franco Bahhman [facility] OFFICE [address] [place] [address] 07/18/2022 14:33:03 07/18/2022 16:16:03 Dyspnea on exertion 40124626 R06.09 Improved. In setting of acute on [...] d over the next 2 months.. Hyperlipidemia 94057153 E78.5 Needs to keep LDL less than [...] Mg, TSH, CBC. Atypical chest pain 1025 03634 R07.89 Improved. Had catheteriz ation straight - [...] ASA in setting of warfarin. Essential hypertension 32965451 I10 Patient's blood pressure is {{well-con trolled* [...] Needs repeat INR in 3 weeks per [facility], on Coumadin 2 mg alternate with 3 mg qHS. Began MgOxide 07/10/17 for Mg 1.1. On 08/08/17, Mg 1.2. Increased to magnesium oxide 400 mg bid 08/08/17. Chronic ob structive pulmonary disease 08012919 J44.9 Needs f/u with pulm. Type 2 eliazar betes mellitus [id number] E11.59 Discussed importance of tight glycemic control to minimize cardiovasc ular disease progressio n. Aortic aneurysm [id number] I71.9 Stable. Aorta measures 4.0-4.3 cm on [...] healthy, low-fat, low-choles terol, diabetic diet, with glass sagger consult. Optimize BP and cholestero l control., Obtain chest CTA 11/2022. Obstructiv e sleep apnea syndrome [id number] G47.33 On BiPAP. Continue. Followed by pulmonolog ist. She had titration study. Obesity 700109068 E66.9 20 lb. weight loss recommende d over the next 2 months. Hypothyroidism 41672399 E03.9 PCP now following. Had 08/2018: free T4 0.8 normal. Obtained normal TSH 12/2020. Had 10/18/21: INR 2.3, HDL 42, TG 169, LDL 69, Cr 1.07, K 4.6, Mg 1.9, TSH 2.7, hgb 13.7 Coronary arteriosclerosis 16430606 I25.10 Mild CAD. Had catheteriz ation straight - procedure (PROC) 03/27/21: Mild CAD (mLAD 25% stenosis, ostial D1 50%). Normal left ventricula r function. Elevated left ventricula r end-diasto lic pressure. Began ASA 81 mg qd 07/18/22. Needs to keep LDL less than 70, and HDL more than 40. Heart fail ure with normal ejection fraction [id number] I50.33 Had catheteriz ation straight - procedure [...] qd 02/14/22. Edema of l ower extremity 704538975 R60.0 Improved. Had 02/07/22 US, echocardio gram: LV chamber size is normal. There is normal global systolic function and contractil ity. The estimated left ventricle ejection fraction is 55-60% (normal). Had US, doppler, venous 01-19-2022 : Negative left-sided venous Doppler study. Increased from Lasix 20 mg qd to 40 mg qd 02/14/22. Obtain FLP, CMP, Mg, TSH, CBC. [address] [address] [facility] [address] [place] [address] 11/14/2022 13:57:15 11/14/2022 15:23:17 Dyspnea on exertion 17082686 R06.09 Improved. In setting of acute on [...] d over the next 2 months.. Hyperlipidemia 49176930 E78.5 Needs to keep LDL less than [...] Mg, TSH, CBC. Atypical chest pain 1025 37262 R07.89 Has focal tenderness noted left anterior [...] CTA chest given aortic aneurysm. Essential hypertension 54194257 I10 Patient's blood pressure is {{well-con trolled* [...] Needs repeat INR in 3 weeks per [facility], on Coumadin 2 mg qHS. Began MgOxide 07/10/17 for Mg 1.1. On 08/08/17, Mg 1.2. Increased to magnesium oxide 400 mg bid 08/08/17. Chronic ob structive pulmonary disease 54593846 J44.9 Needs f/u with pulm. Type 2 eliazar betes mellitus 30638096 E11.59 Discussed importance of tight glycemic control to minimize cardiovasc ular disease progressio n. Aortic aneurysm 61365428 I71.9 Stable. Aorta measures 4.0-4.3 cm on [...] healthy, low-fat, low-choles terol, diabetic diet, with glass sagger consult. Optimize BP and cholestero l control., Obtain chest CTA 11/2022. Obstructiv e sleep apnea syndrome 92490933 G47.33 On BiPAP. Continue. Followed by pulmonolog ist. She had titration study. Obesity 951902369 E66.9 20 lb. weight loss recommende d over the next 2 months. Hypothyroidism 64761324 E03.9 PCP now following. Had 08/2018: free T4 0.8 normal. Obtained normal TSH 12/2020. Had 10/18/21: INR 2.3, HDL 42, TG 169, LDL 69, Cr 1.07, K 4.6, Mg 1.9, TSH 2.7, hgb 13.7 Coronary arteriosclerosis 37516398 I25.10 Mild CAD. Had catheteriz ation straight - procedure (PROC) 03/27/21: Mild CAD (mLAD 25% stenosis, ostial D1 50%). Normal left ventricula r function. Elevated left ventricula r end-diasto lic pressure. Began ASA 81 mg qd 07/18/22. Needs to keep LDL less than 70, and HDL more than 40. Heart fail ure with normal ejection fraction 711948834 I50.33 Had catheteriz ation straight - procedure [...] qd 02/14/22. Edema of l ower extremity 958111981 R60.0 Improved. Had 02/07/22 US, echocardio gram: [...] Name 11/01/2021 1 [place] Carol Gee [id number] Carol Gee 11/01/2021 2 [facility] - DOS ON OR AFTER 20 (MEDICAID REPLACEMENT - HMO) Carol Gee [id number] Carol Gee 01/03/2022 1 [place] Carol Gee [id number] Carol Gee 01/03/2022 2 [facility] - DOS ON OR AFTER 20 (MEDICAID REPLACEMENT - HMO) Carol Gee [id number] Carol Gee 02/14/2022 1 [place] Gee [id number] Carol Gee 02/14/2022 2 [place] [facility] Carol Gee [id number] Carol Gee 07/18/2022 1 [place] Carol Gee [id number] Carol Gee 07/18/2022 2 [place] [facility] [place] [facility] Carol Gee [id number] Carol Gee 11/14/2022 1 [place] Carol Gee [id number] Carol Gee 11/14/2022 2 [place] [facility] Carol Gee [id number] Carol Gee Notes Date Note Type Note [...] measuring 9x 16 mm. She went to [facility] on 02/05/18 for a consultation with a surgeon to see about biopsy vs surgical removal of nodule. She had PFT testing 01/29/18. She had CT scan 03/12/2018 showed nodule stable. She had CT scan 05/2018 showed nodule resolved. She was at [facility] on 11/27/17 for elevated calcium levels [...] and has it checked at lab per [facility]. She was in [facility] in 05/22/17 because of atrial fibrillation [...] 08/28/21 - INR : 2.1(H)PT 19.8(H) PT/INR [id number] 1.7 H PT 17.2 H 03/27/21:Na 137,K [...] measuring 9x 16 mm. She went to [facility] on 02/05/18 for a consultation with a surgeon to see about biopsy vs surgical removal of nodule. She had PFT testing 01/29/18. She had CT scan 03/12/2018 showed nodule stable. She had CT scan 05/2018 showed nodule resolved. She was at [facility] on 11/27/17 for elevated calcium levels [...] and has it checked at lab per [facility]. She was in [facility] in 05/22/17 because of atrial fibrillation [...] 08/28/21 - INR : 2.1(H)PT 19.8(H) PT/INR [id number] 1.7 H PT 17.2 H 03/27/21:Na 137,K [...] measuring 9x 16 mm. She went to [facility] on 02/05/18 for a consultation with a surgeon to see about biopsy vs surgical removal of nodule. She had PFT testing 01/29/18. She had CT scan 03/12/2018 showed nodule stable. She had CT scan 05/2018 showed nodule resolved. She was at [facility] on 11/27/17 for elevated calcium levels [...] and has it checked at lab per [facility]. She was in [facility] in 05/22/17 because of atrial fibrillation [...] 08/28/21 - INR : 2.1(H)PT 19.8(H) PT/INR [id number] 1.7 H PT 17.2 H 03/27/21:Na 137,K [...] function. Elevated left ventricular end-diastolic pressure. [place] - [facility] 02/14/2022 16:38:38 [...] measuring 9x 16 mm. She went to [facility] on 02/05/18 for a consultation with a surgeon to see about biopsy vs surgical removal of nodule. She had PFT testing 01/29/18. She had CT scan 03/12/2018 showed nodule stable. She had CT scan 05/2018 showed nodule resolved. She was at [facility] on 11/27/17 for elevated calcium levels [...] and has it checked at lab per [facility]. She was in [facility] in 05/22/17 because of atrial fibrillation [...] 08/28/21 - INR : 2.1(H)PT 19.8(H) PT/INR [id number] 1.7 H PT 17.2 H 03/27/21:Na 137,K [...] fibrillation. Low voltage, chest leads US, echocardiogram [id number] chamber size is normal. There is normal [...] setting of atrial fibrillation. US, doppler, venous [id number] Duplex Negative left-sided venous Doppler study. US, [...] measuring 9x 16 mm. She went to [facility] on 02/05/18 for a consultation with a surgeon to see about biopsy vs surgical removal of nodule. She had PFT testing 01/29/18. She had CT scan 03/12/2018 showed nodule stable. She had CT scan 05/2018 showed nodule resolved. She was at [facility] on 11/27/17 for elevated calcium levels [...] and has it checked at lab per [facility]. She was in [facility] in 05/22/17 because of atrial fibrillation [...] 08/28/21 - INR : 2.1(H)PT 19.8(H) PT/INR [id number] 1.7 H PT 17.2 H 03/27/21:Na 137,K [...] fibrillation. Low voltage, chest leads US, echocardiogram [id number] chamber size is normal. There is normal [...] setting of atrial fibrillation. US, doppler, venous [id number] Duplex Negative left-sided venous Doppler study. US, [...]
--- OUTSIDE RECORDS SUMMARY | 2024-08-11 13:22 | XMS_ITS | Encounter Summary ---
Author Organization [facility] Address [address] [place] [address] Care Team Providers Care Home Visit Field Care Manager Name Role Phone John Gomez DO Primary Care Provider [phone] Reason for Visit * Reason Onset Date Comments MEDICATION REFILL 07/20/2022 Encounter Details Date Type Department Care Team (Late st Contact Info) Description 07/20/2022 Refill [facility] [address] [place] [address], [place] [id number] Pastora Roy PA [address] [place] [address] [address] [place] [address] MEDICATION REFILL Social History Tobacco [...] psoriasis documented in this encounter Care Teams Home Visit Field Care Manager Relationship Specialty Start Date End Date John Gomez DO [address] [place] [address] PCP - General 04/11/21 documented as of this encounter
--- OUTSIDE RECORDS SUMMARY | 2024-08-11 13:22 | XMS_ITS | Patient Health Summary ---
Author Organization [facility] Address [address] [place] [address] Care Team Providers Care Electrical Solderer Name Role Phone Patricia John Cassia RODRIGUEZ Primary Care Provider Note from [facility],non-owned Affiliates and Associated Physician Practices is amultiple site organization consisting of ambulatory clinics and hospital sitesin [place], [place], [place] and [place]. This disclosure is being madepursuant to the Care Everywhere program and may not contain all information available regarding this patient. Last updated 18.[facility] Allergies * Cefuroxime(Itching) -Low Criticality * Cefuroxime [...] pen needle (NOVOFINE) 32G X 6 MM [facility](Started 08/13/2016) * levothyroxine (SYNTHROID) 112 MCG tablet(Started [...] Primary osteoarthritis involving multiple joints 03/07/2017 Other intermediate (current) drug therapy 7 Other psoriasis 10/14/2016 [...] COMPREHENSIVE METABOLIC PANEL(Performed 06/19/2022) Performed for Other extermination supervisor (current) drug therapy * CBC W AUTO DIFFERENTIAL(Performed 06/19/2022) Performed for Other extermination supervisor (current) drug therapy * QUANTIFERON-TB GOLD PLUS 1-TUBE(Performed 05/31/2021) * CBC W AUTO DIFFERENTIAL(Performed 05/31/2021) Performed for Other extermination supervisor (current) drug therapy * COMPREHENSIVE METABOLIC PANEL(Performed 05/31/2021) Performed for Other intermediate (current) drug therapy * IMAGING/RADIOLOGY/XRAY RESULTS ORDER(Performed [...] 12/14/2016) * COMPREHENSIVE METABOLIC PANEL(Performed 12/14/2016) * METER REPAIRER HELPER ANTIBODY(Performed 12/14/2016) * JIMENES (SM) ANTIBODY JAIME(Performed [...] QUANTIFERON-TB GOLD PLUS 1-TUBE (06/19/2022 3:03 PM MANUFACTURING DEVELOPMENT ENGINEER) Only the most recent of3 resultswithin the [...] T-lymphocytes. For additional information, please refer to https://education.Group Therapy Records/faq/SPB094 (This link is being provided for informational/ educational purposes only.) Test Performed at: [employer] [address] [place] [address] ISABELLA RODRIGUEZ DO,MPH 06/19/2022 3:03 PM MANUFACTURING DEVELOPMENT ENGINEER 06/19/2022 3:03 PM MANUFACTURING DEVELOPMENT ENGINEER Past[facility]DIV[facility] - CHEMISTRY ABHISHEK TREVIÑO [facility] Organization Address City/State/ZIP Co de Phone Number [facility] [address] [place] [address] * CBC WITH DIFFERENTIAL (06/19/2022 3:03 PM MANUFACTURING DEVELOPMENT ENGINEER) Only the most recent of9 resultswithin the time period is included. White Blood Cell Count 8.5 3.8 - [...] 0.5 % [facility] Comment: Test Performed at: [employer] [address] [place] [address] ISABELLA RODRIGUEZ DO,MPH Blood BLOOD SPECIMEN / Unknown 06/19/2022 3:03 PM MANUFACTURING DEVELOPMENT ENGINEER 06/19/2022 3:03 PM MANUFACTURING DEVELOPMENT ENGINEER Pastora SALDIVAR LAB - HEMATOLOGY ORD ERABLES [facility] [address] [place] [address] * (ABNORMAL) COMPREHENSIVE METABOLIC PANEL (06/19/2022 3:03 PM MANUFACTURING DEVELOPMENT ENGINEER) Only the most recent of9 resultswithin the time period is included. Glucose 102(H) 65 - 99 mg/dL [facility] [...] 29 U/L [facility] Comment: Test Performed at: [employer] [address] [place] [address] ISABELLA RODRIGUEZ DO,MPH Blood BLOOD SPECIMEN / Unknown 06/19/2022 3:03 PM MANUFACTURING DEVELOPMENT ENGINEER 06/19/2022 3:03 PM MANUFACTURING DEVELOPMENT ENGINEER [facility] - CHEMISTRY ABIHSHEK TREVIÑO [facility] Organization Address City/State/ZIP Co de Phone Number [facility] [address] [place] [address] * IMAGING RADIOLOGY XRAY RESULTS ORDER (03/04/2020 [...] a test for HCV RNA (test code 32690) is suggested. For additional information please refer to http://education.Penneo.Zilyo/faq/DCL41m8 (This link is being provided for informational/ educational purposes only.) Test Performed at: [employer] [address] [place] [address] ISABELLA RODRIGUEZ DO,MPH 03/04/2020 9:54 AM CDT 03/04/2020 9:59 AM CDT Stephy Fitzpatrick MD LAB - CHEMISTRY ABHISHEK TREVIÑO Performing Organization Address [facility] Co de Phone Number [facility] [address] [place] [address] * HEPATITIS B CORE ANTIBODY REFLEX IGM (03/04/2020 9:54 AM CDT) Pathologist [facility] Hepatitis B Core Virus Antibody Total NON-REACTI VE NON-REACT CASTRO [facility] Comment: Test Performed at: [employer] [address] ISABELLA RODRIGUEZ DO,MPH 03/04/2020 9:54 AM CDT 03/04/2020 9:59 AM CDT Stephy Fitzpatrick MD LAB - SEROLOGY ORDER MARK Performing Organization Address [facility] Co de Phone Number [facility] [id number] [place] [address] * (ABNORMAL) HEPATITIS B SURFACE ANTIBODY QUANT (03/04/2020 9:54 AM CDT) Pathologist [facility] Hepatitis B Virus Surface Antibody Quantitative <5(L) > OR = 10 mIU/mL [facility] Comment: Patient does not have immunity to hepatitis B virus. For additional information, please refer to http://education.Group Therapy Records/faq/FEM511 (This link is being provided for informational/ educational purposes only). Test Performed at: [employer] [address] ISABELLA RODRIGUEZ DO,MPH 03/04/2020 9:54 AM CDT 03/04/2020 9:59 AM CDT Stephy Fitzpatrick MD LAB - SEROLOGY ORDER MARK Performing Organization Address [facility] Co de Phone Number [employer] [address] [place] [address] * RHEUMATOID FACTOR BLOOD QUANTITATIVE (03/04/2020 9:54 AM CDT) Only the most recent of2 resultswithin the time period is included. [facility] Rheumatoid Factor <14 <14 IU/mL [facility] Comment: Test Performed at: [employer] [address] ISABELLA RODRIGUEZ DO,MPH 03/04/2020 9:54 AM CDT 03/04/2020 9:59 AM CDT Stephy Fitzpatrick MD LAB - CHEMISTRY ABHISHEK TREVIÑO Performing Organization Address City/[facility] Co de Phone Number [facility] [address] [place] [address] * (ABNORMAL) C-REACTIVE PROTEIN (03/04/2020 9:54 AM CDT) Only the most recent of2 resultswithin the time period is included. C-Reactive Protein 20.4(H) <8.0 mg/L [facility] Comment: Test Performed at: [employer] [facility] [facility] [address] [place] [address] ISABELLA RODRIGUEZ DO,MPH 03/04/2020 9:54 AM CDT 03/04/2020 9:59 AM CDT Stephy Fitzpatrick MD LAB - CHEMISTRY ABHISHEK TREVIÑO Performing Organization Address [facility] Co de Phone Number [facility] [address] [place] [address] * HLA TYPING B27 (03/04/2020 9:54 AM CDT) Pathologist [facility] HLA-B27 Antigen NEGATIVE NEGATIVE [facility] Comment: Test Performed at: [employer]/[facility] [address] [place] [address] AGUS WEIR MD,PHD,FÉLIX 03/04/2020 9:54 AM CDT 03/04/2020 9:59 AM CDT Stephy Fitzpatrick MD LAB - CHEMISTRY ABHISHEK TREVIÑO Performing Organization Address City/[facility] Co de Phone Number [facility] [address] [place] [address] * VITAMIN D 25-HYDROXY (03/04/2020 9:54 AM CDT) Only the most recent of2 resultswithin the time period is included. Vitamin D, 25 Hydroxy 31 30 - 100 ng/mL [facility] Comment: Vitamin D Status 25-OH Vitamin D: Deficiency: <20 ng/mL Insufficiency: 20 - 29 ng/mL Optimal: > or = 30 ng/mL For 25-OH Vitamin D testing on patients on D2-supplementation and patients for whom quantitation of D2 and D3 fractions is required, the QuestAssureD(TM) 25-OH VIT D, (D2,D3), LC/MS/MS is recommended: order code 47100 (patients >2yrs). See Note 1 Note 1 For additional information, please refer to http://education.York Mailing/faq/SWQ309 (This link is being provided for informational/ educational purposes only.) Test Performed at: [facility] [place] [address] ISABELLA RODRIGUEZ DO,MPH 03/04/2020 9:54 AM CDT 03/04/2020 9:59 AM CDT Stephy Fitzpatrick MD LAB - CHEMISTRY ABHISHEK TREVIÑO Performing Organization Address [facility] de Phone Number [address] [address] * CYCLIC CITRULLINATED PEPTIDE(CCP) AB IGG (03/04/2020 9:54 AM CDT) Only the most recent of2 resultswithin the time period is included. [facility] Cyclic Citrullinated Peptide Antibody IgG <16 UNITS [employer] [facility] Comment: Reference Range Negative: <20 Weak Positive: 20-39 Moderate Positive: 40-59 Strong Positive: >59 Test Performed at: [employer] [place] [address] ISABELLA RODRIGUEZ DO,MPH 03/04/2020 9:54 AM CDT 03/04/2020 9:59 AM CDT Stephy Fitzpatrick MD LAB - CHEMISTRY ABHISHEK TREVIÑO Performing Organization Address [facility] de Phone Number [address] [address] * (ABNORMAL) ERYTHROCYTE SEDIMENTATION RATE (03/04/2020 9:54 AM CDT) Only the most recent of2 resultswithin the time period is included. Erythrocyte Sedimentation Rate Westergren 34(H) < OR = 30 mm/h [facility] Comment: Test Performed at: [employer] [address] RODOLFO NAM MD 03/04/2020 9:54 AM CDT 03/04/2020 9:59 AM CDT Stephy Fitzpatrick MD LAB - HEMATOLOGY ORD ERABLES [address] [address] * (ABNORMAL) URINALYSIS REFLEX TO MICROSCOPIC NO CULTURE (05/09/2017 1:59 PM MANUFACTURING DEVELOPMENT ENGINEER) Only the most recent of3 resultswithin the time period is included. Color UA YELLOW YELLOW [facility] ([facility]) Appearance CLOUDY(A) CLEAR [facility] ([facility]) Specific Thida UA 1.021 1.001 - 1.035 [facility] ([facility]) pH Urine 5.5 5.0 - 8.0 [facility] ([facility]) Glucose UA 3+(A) NEGATIVE [facility] ([facility]) Bilirubin UA NEGATIVE NEGATIVE [facility] ([facility]) Ketone UA TRACE(A) NEGATIVE [facility] ([facility]) Blood UA 1+(A) NEGATIVE [facility] ([facility]) Protein UA NEGATIVE NEGATIVE [facility] ([facility]) Nitrite UA POSITIVE(A) NEGATIVE [facility] ([facility]) Leukocyte Esterase 2+(A) NEGATIVE [facility] ([facility]) WBC Urine PACKED(A) < OR = 5 /HPF [facility] ([facility]) RBC Urine 10-20(A) < OR = 2 /HPF [facility] ([facility]) Squamous Epithelial Cells UA 0-5 < OR = 5 /HPF [facility] ([facility]) Transitional Epitelial Cells UA 0-5 < OR = 5 /HPF [facility] ([facility]) Bacteria UA FEW(A) NONE SEEN /HPF [facility] ([facility]) Calcium Oxalate UA FEW NONE OR FEW /HPF [facility] ([facility]) Hyaline Casts UA NONE SEEN NONE SEEN /LPF [facility] ([facility]) Comment: Test Performed at: [employer] [facility] [address] [place] [address] ISABELLA RODRIGUEZ DO,MPH 05/09/2017 1:59 PM MANUFACTURING DEVELOPMENT ENGINEER 05/09/2017 2:00 PM MANUFACTURING DEVELOPMENT ENGINEER Yanni Song MD LAB - URIN ALYSIS ORDERABLES [facility] ([facility]) * (ABNORMAL) URINALYSIS W/MICROSCOPIC REFLEX TO CULTURE (03/18/2017 1:48 PM CDT) Only the most recent of2 resultswithin the time period is included. Color UA YELLOW YELLOW [facility] ([facility]) Appearance CLOUDY(A) CLEAR [facility] ([facility]) Specific Thida UA 1.021 1.001 - 1.035 [facility] ([facility]) pH Urine 5.5 5.0 - 8.0 [facility] ([facility]) Glucose UA NEGATIVE NEGATIVE [facility] ([facility]) Bilirubin UA NEGATIVE NEGATIVE [facility] ([facility]) Ketone UA NEGATIVE NEGATIVE [facility] ([facility]) Blood UA 1+(A) NEGATIVE [facility] ([facility]) Protein UA 1+(A) NEGATIVE [facility] ([facility]) Nitrite UA POSITIVE(A) NEGATIVE [facility] ([facility]) Leukocyte Esterase 3+(A) NEGATIVE [facility] ([facility]) WBC Urine PACKED(A) < OR = 5 /HPF [facility] ([facility]) RBC Urine 3-10(A) < OR = 2 /HPF [facility] ([facility]) Squamous Epithelial Cells UA 6-10(A) < OR = 5 /HPF [facility] ([facility]) Bacteria UA MANY(A) NONE SEEN /HPF [facility] ([facility]) Calcium Oxalate UA MANY(A) NONE OR FEW /HPF [facility] ([facility]) Hyaline Casts UA NONE SEEN NONE SEEN /LPF [facility] ([facility]) Culture Urine Comprehensive CULTURE INDICATED - RESULTS TO FOLLOW [facility] ([facility]) Urine Culture Routine SEE NOTE(A) [facility] ([facility]) Comment: CULTURE, URINE, ROUTINE MICRO NUMBER: [id number] TEST STATUS: FINAL SPECIMEN SOURCE: URINE SPECIMEN QUALITY: ADEQUATE RESULT: 10,000-50,000 CFU/mL of Escherichia coli COMMENT: Additional organism(s) less than 10,000 CFU/mL isolated. These organisms, commonly found on external and internal genitalia, are considered colonizers. No further testing performed. E.coli INT EFRAIN AMOX/CLAVULANATE S 4 AMPICILLIN R >=32 AMP/SULBACTAM I 16 CEFAZOLIN NR <=4 1 CEFEPIME S <=1 CEFTRIAXONE S <=1 CIPROFLOXACIN S <=0.25 ERTAPENEM S <=0.5 GENTAMICIN R >=16 IMIPENEM S <=0.25 LEVOFLOXACIN S <=0.12 NITROFURANTOIN S <=16 PIP/TAZOBACTAM S <=4 TOBRAMYCIN S 2 TRIMETHOPRIM/SULFA R >=320 S=Susceptible I=Intermediate R=Resistant * = Not Tested NR = Not Reported NN = See Therapy Comments THERAPY COMMENTS Note 1: ORAL therapy: A cefazolin EFRAIN of < 32 predicts susceptibility to the oral agents cefaclor, cefdinir, cefpodoxime, cefprozil, cefuroxime, cephalexin, and loracarbef when used for therapy of uncomplicated UTIs due to E. coli, K. pneumoniae, and P. mirabilis. PARENTERAL therapy: A cefazolin EFRAIN of > 8 indicates resistance to parenteral cefazolin. An alternate test method must be performed to to confirm susceptibility to parenteral cefazolin. REPORT COMMENT: SPECIMEN TYPE->URINE Test Performed at: [employer] [facility] [address] [place] [address] ISABELLA RODRIGUEZ DO,MPH 03/18/2017 1:48 PM CDT 03/18/2017 1:48 PM CDT Yanni Song MD LAB - URIN ALYSIS ORDERABLES [facility] ([facility]) * DNA ANTIBODY DS CRITHIDIA IFA (12/14/2016 3:12 PM CDT) dsDNA Antibody Crithidia IFA NEGATIVE NEGATIVE [facility] ([facility]) Comment: Test Performed at: [employer] [address] [place] [address] MONAE NGUYEN MD PHD 12/14/2016 3:12 PM CDT 12/14/2016 3:14 PM CDT Yanni Song MD LAB - SERO LOGY ORDERABLES [facility] ([facility]) * JIMENES (SM) ANTIBODY JAIME (12/14/2016 3:12 PM CDT) Pathologist [facility] JAIME Jimenes (SM) Antibody <1.0 NEG <1.0 NEG AI [facility] ([facility]) Comment: Test Performed at: [employer] [address] [address] ISABELLA RODRIGUEZ DO,MPH Blood specimen (specimen) BLOOD SPECIMEN / Unknown 12/14/2016 3:12 PM CDT 12/14/2016 3:14 PM CDT Yanni Song MD LAB - CHEM ISTRY ORDERABLES Performing Organization Address [facility] de Phone Number [facility] ([facility]) * METER REPAIRER HELPER ANTIBODY (12/14/2016 3:12 PM CDT) Pathologist [facility] JAIME METER REPAIRER HELPER Antibody <1.0 NEG <1.0 NEG AI [facility] ([facility]) Comment: Test Performed at: [place] [address] ISABELLA RODRIGUEZ DO,MPH Blood specimen (specimen) BLOOD SPECIMEN / Unknown 12/14/2016 3:12 PM CDT 12/14/2016 3:14 PM CDT Yanni Song MD LAB - CHEM ISTRY ORDERABLES Performing Organization Address [facility] de Phone Number [facility] ([facility]) * NEMO BLOOD SCREEN W/REFLEX TITER (12/14/2016 3:12 PM CDT) Pathologist [facility] NEMO Screen NEGATIVE NEGATIVE [facility] ([facility]) Comment: NEMO IFA is a first line screen for detecting the presence of up to approximately 150 autoantibodies in various autoimmune diseases. A negative NEMO IFA result suggests NEMO-associated autoimmune diseases are not present at this time. Visit Physician FAQs for interpretation of all antibodies in the [place], prevalence, and association with diseases at http://education.York Mailing/ faq/GWO999 Test Performed at: [employer] [address] ISABELLA RODRIGUEZ DO,MPH Blood specimen (specimen) BLOOD SPECIMEN / Unknown 12/14/2016 3:12 PM CDT 12/14/2016 3:14 PM CDT Yanni Song MD LAB - CHEM ISTRY ORDERABLES Performing Organization Address [facility] Co de Phone Number [facility] ([facility]) * SS-A/SS-B (SJOGRENS) ANTIBODY PANEL (12/14/2016 3:12 PM CDT) Sjogren's Antibodies (SSA) <1.0 NEG <1.0 NEG AI [facility] ([facility]) Sjogren's Antibodies (SSB) <1.0 NEG <1.0 NEG AI [facility] ([facility]) Comment: Test Performed at: [employer] [address] [place] [address] ISABELLA RODRIGUEZ DO,MPH 12/14/2016 3:12 PM CDT 12/14/2016 3:14 PM CDT Yanni Song MD LAB - CHEM ISTRY ORDERABLES Performing Organization Address [facility] Phone Number [facility] ([facility]) * DNA ANTIBODY DOUBLE STRANDED (12/14/2016 3:12 PM CDT) dsDNA Antibody 2 IU/mL [facility] ([facility]) Comment: IU/mL Interpretation < or = 4 Negative 5-9 Indeterminate > or = 10 Positive Test Performed at: [employer] [address] [place] [address] ISABELLA RODRIGUEZ DO,MPH Blood specimen (specimen) BLOOD SPECIMEN / Unknown 12/14/2016 3:12 PM CDT 12/14/2016 3:14 PM CDT Yanni Song MD LAB - NORBERT TOLOGY ORDERABLES Performing Organization Address [facility]/ZIP Co de Phone Number [facility] ([facility]) * TSH (12/14/2016 3:12 PM CDT) [facility] TSH 2.34 0.40 - 4.50 mIU/L [facility] ([facility]) Comment: Test Performed at: [facility] [place] [address] ISABELLA RODRIGUEZ DO,MPH Blood specimen (specimen) BLOOD SPECIMEN / Unknown 12/14/2016 3:12 PM CDT 12/14/2016 3:14 PM CDT Yanni Song MD LAB - CHEM ISTRY ORDERABLES [facility] ([facility]) * QUANTIFERON TB-GOLD INC (11/07/2016 1:53 PM CDT) [facility] QuantiFERON TB Gold NEGATIVE NEGATIVE [facility] ([facility]) Comment: Negative test result. M. tuberculosis complex infection unlikely. QuantiFERON Nil Value 0.00 IU/mL [facility] ([facility]) QuantiFERON Mitogen Value >10.00 IU/mL [facility] ([facility]) QuantiFERON TB Antigen minus Nil value <0.00 IU/mL [facility] ([facility]) Comment: The Nil tube value is used [...] IU/mL. For additional information, please refer to http://education.Penneo.Zilyo/faq/QFT (This link is being provided for informational/ educational purposes only.) REPORT COMMENT: COLLECTION REQUIREMENTS NOT MET. PATIENT ADVISED TO RETURN. Test Performed at: [place] [address] ISABELLA RODRIGUEZ DO,MPH 11/07/2016 1:53 PM CDT 11/07/2016 1:59 PM CDT Maren Hudson MD LAB - SEROLOGY ORD ERABLES Performing Organization Address [facility]/ZIP Co de Phone Number [facility] ([facility]) * HEPATITIS SCREEN ACUTE (11/07/2016 1:53 PM CDT) Hepatitis A Virus Antibody IgM NON-REACTI VE NON-REACT CASTRO [facility] ([facility]) Hepatitis B Virus Surface Antigen NON-REACTI VE NON-REACT ACSTRO [facility] ([facility]) Hepatitis B Core Virus Antibody IgM NON-REACTI VE NON-REACT CASTRO [facility] ([facility]) Hepatitis C Antibody NON-REACTI VE NON-REACT CASTRO [facility] ([facility]) Signal/Cutoff 0.02 <1.00 [facility] ([facility]) Comment: Test Performed at: [place] [address] ISABELLA RODRIGUEZ DO,MPH Blood specimen (specimen) BLOOD SPECIMEN / Unknown 11/07/2016 1:53 PM CDT 11/07/2016 1:59 PM CDT Maren Hudson MD LAB - CHEMISTRY OR DERABLES Performing Organization Address [facility]/ZIP Co de Phone Number [facility] ([facility]) * (ABNORMAL) CULTURE URINE (04/29/2014 3:01 PM CDT) Pathologist [facility] Culture Urine ESCHERICHIA COLI(A) [facility] Comment:Greater than 1,000,0 00 CFU/ML Escherichia Coli Urine specimen (specimen) URINE SPECIMEN OBTAINED BY CLEAN CATCH PROCEDURE / Unknown 04/29/2014 3:01 PM CDT 04/29/2014 10:01 PM CDT Narrative [facility] - 05/01/2014 12:38 PM CDT HollisSpecimen#[id number] Hollis Loc/Rm/Bed: EXPCARE C// CLN CATCH U [...] Historical Provider LAB - MICROBIOLOG Y ORDERABLES [facility] [address] [place] [address] Care Teams Electrical Solderer Relationship Specialty Start Date End Date John Gomez DO [address] [place] [address] PCP - General 04/11/21
== END 2024-08-11 12:25 | disposition home or self-care (01) ==
PROVIDERS: PCP Internal Medicine; Visit Provider Urology
DX: N20.0 Calculus of kidney (principal)
CPT/HCPCS: 74018

== ENCOUNTER 2024-08-23 17:11 | Emergency (ER) | payer MEDICARE, MEDICAID, SELFPAY ==
--- NOTE | ~2024-08-23 | XR_ITS ---
Portable chest x-ray Comparison: 07/13/2024 Clinical History: Hypoxia Findings: Possible mild central congestive change, without focal consolidation or pleural effusion. Cardiomediastinal silhouette is stable. Bones and soft tissues are unremarkable. Impression: Possible mild central pulmonary venous congestive change. Reviewed, dictated and finalized at [facility]. D PSYCHIATRIST Impression: Possible mild central pulmonary venous congestive change.
[2024-08-23 17:12] VITALS: BP 120/59; PULSE 81; RESP 16; TEMP 36.6; O2SAT 95
--- OUTSIDE RECORDS SUMMARY | 2024-08-23 17:13 | XMS_ITS ---
Author Organization [facility] Address [address] [place] [address] Care Team Providers Care Interior Wirer Name Role Phone Fannie Campuzano Primary Care Provider [phone] REASON FOR VISIT update and question Social History Sex Assigned At : Social History Observation Description Sex Assigned At Female Encounters Encounter Location Date Provider Diagnosis [address] [place] [address] 07/14/2024 [facility] Plan Of Treatment No Information Progress Notes * Hermila GEEsDOB:1955 (68 yo F)Acc No.[id number]:07/14/2024 Patient: Carol MAY :1955 A ge:68 Y S ex:Female Address:[address] [place] [address], [address], [place], [address] * true * Date: Generated for Garyi corrine/Jacquelyng/eTransmitting on: 0 08/23/2024 05:12 PM CUSTOMER ACCOUNT TECHNICIAN
--- OUTSIDE RECORDS SUMMARY | 2024-08-23 17:13 | XMS_ITS | Clinical Summary ---
Author Organization [facility] Address [address] [place] [address] Care Team Providers Care Vocational Nurse Lvn Name Role Phone Unavailable Primary Care Provider [...] patient's age to complete this topic Insurance RYE
--- OUTSIDE RECORDS SUMMARY | 2024-08-23 17:13 | XMS_ITS | Encounter Summary ---
Author Organization [facility] Address [address] [place] [address] Care Team Providers Care Group Account Director Name Role Phone John Gomez DO Primary Care Provider [phone] Encounter Details Date Type Department Care Team (Late st Contact Info) Description 07/18/2021 Telephone [facility] [address] [facility] [place] [address] Pastora Roy PA [address] [facility] [address] [place] [address] Social History Tobacco Use Types [...] She is up to date on labs WORKER * Telephone Encounter - Pastora Roy PA - 07/18/2021 2:46 PM CST Patient called for refill cosentyx Sent to ousmane /anya She has follow up in August She is up to date on labs WORKER documented in this encounter Plan of Treatment Not on file documented as of this encounter Visit Diagnoses Diagnosis Other psoriasis documented in this encounter Care Teams Group Account Director Relationship Specialty Start Date End Date John Gomez DO [address] [place] [address] PCP - General 04/11/21 documented as of this encounter
--- OUTSIDE RECORDS SUMMARY | 2024-08-23 17:13 | XMS_ITS ---
Author Organization [facility] Address [address] [place] [address] Care Team Providers Care School Transportation Supervisor Name Role Phone Fannie Campuzano Primary Care Provider REASON FOR VISIT med issues Medications Medication [...] Encounters Encounter Location Date Provider Diagnosis [address] [address] 07/27/2024 Fannie Campuzano Schizoaffective diso rder F25.9 [...] Notes * Lana GEE:1955 (68 yo F)Acc No.[id number]:07/27/2024 Patient: Carol MAY :1955 A ge:68 Y S ex:Female Address:[address] [place] [address], [place] [address] * Refills Refill Lexapro Tablet, 10 MG, [...] twice a day, 30 days, Refills=0 * true * Date: Generated for Delilah castle/Vinicio/Martínezsmitting on: 0 08/23/2024 05:12 PM LINK MACHINE OPERATOR
--- OUTSIDE RECORDS SUMMARY | 2024-08-23 17:13 | XMS_ITS | Clinical Summary ---
Author Organization [facility] Address [address] [place] [address] Care Team Providers Care Judicial Registrar Name Role Phone Lane Ring MD Primary [...] daily as needed . 7 Active Insulin [place], Disposable, (NOVOFINE 32) 32 gauge x 1/4 [...] SCREENING 2021 INFLUENZA VACCINE (#1) 2024 Insurance [facility] MEDICAID Care Teams Judicial Registrar Relationship Specialty Start Date End Date Lane Ring MD [address] [place] [address] PCP - General Internal Medicine 12/17/17
--- OUTSIDE RECORDS SUMMARY | 2024-08-23 17:14 | XMS_ITS | Patient Health Summary ---
Author Organization [facility] Address [address] [place] [address] Care Team Providers Care Tank Builder And Erector Name Role Phone Patricia John Cassia RODRIGUEZ Primary Care Provider [phone] Note from [facility],non-owned Affiliates and Associated Physician Practices is amultiple site organization consisting of ambulatory clinics and hospital sitesin [place], [place], [place] and [place]. This disclosure is being madepursuant to the Care Everywhere program and may not contain all information available regarding this patient. Last updated 18.[facility] Allergies * Cefuroxime(Itching) -Low Criticality * [...] needle (NOVOFINE) 32G X 6 MM [facility](Started 08/13/2016) * levothyroxine (SYNTHROID) 112 MCG tablet(Started [...] COMPREHENSIVE METABOLIC PANEL(Performed 06/19/2022) Performed for Other lab aid (current) drug therapy * CBC W AUTO DIFFERENTIAL(Performed 06/19/2022) Performed for Other lab aid (current) drug therapy * QUANTIFERON-TB GOLD PLUS 1-TUBE(Performed 05/31/2021) * CBC W AUTO DIFFERENTIAL(Performed 05/31/2021) Performed for Other lab aid (current) drug therapy * COMPREHENSIVE METABOLIC PANEL(Performed 05/31/2021) Performed for Other residential (current) drug therapy * IMAGING/RADIOLOGY/XRAY RESULTS ORDER(Performed [...] 12/14/2016) * COMPREHENSIVE METABOLIC PANEL(Performed 12/14/2016) * WAREHOUSE FOREMAN ANTIBODY(Performed 12/14/2016) * JIMENES (SM) ANTIBODY JAIME(Performed [...] QUANTIFERON-TB GOLD PLUS 1-TUBE (06/19/2022 3:03 PM WILDLIFE CONSERVATION PROFESSOR) Only the most recent of3 resultswithin the [...] T-lymphocytes. For additional information, please refer to https://education.Active Implants/faq/FHH116 (This link is being provided for informational/ educational purposes only.) Test Performed at: [employer] [address] [place] [address] ISABELLA RODRIGUEZ DO,MPH 06/19/2022 3:03 PM WILDLIFE CONSERVATION PROFESSOR 06/19/2022 3:03 PM WILDLIFE CONSERVATION PROFESSOR [facility] - CHEMISTRY ABHISHEK TREVIÑO [facility] Organization Address City/State/ZIP Co de Phone Number [facility] [address] [place] [address] * CBC WITH DIFFERENTIAL (06/19/2022 3:03 PM WILDLIFE CONSERVATION PROFESSOR) Only the most recent of9 resultswithin the [...] 0.5 % [facility] Comment: Test Performed at: [employer] [address] [place] [address] ISABELLA RODRIGUEZ DO,MPH Blood BLOOD SPECIMEN / Unknown 06/19/2022 3:03 PM WILDLIFE CONSERVATION PROFESSOR 06/19/2022 3:03 PM WILDLIFE CONSERVATION PROFESSOR [facility] - HEMATOLOGY ORD ERABLES [facility] [address] [place] [address] * (ABNORMAL) COMPREHENSIVE METABOLIC PANEL (06/19/2022 3:03 PM WILDLIFE CONSERVATION PROFESSOR) Only the most recent of9 resultswithin the [...] 29 U/L [facility] Comment: Test Performed at: [employer] [address] [place] [address] ISABELLA RODRIGUEZ DO,MPH Blood BLOOD SPECIMEN / Unknown 06/19/2022 3:03 PM WILDLIFE CONSERVATION PROFESSOR 06/19/2022 3:03 PM WILDLIFE CONSERVATION PROFESSOR [facility] - CHEMISTRY ABHISHEK TREVIÑO [facility] Organization Address City/State/ZIP Co de Phone Number [facility] [address] [place] [address] * IMAGING RADIOLOGY XRAY RESULTS ORDER (03/04/2020 [...] a test for HCV RNA (test code 86425) is suggested. For additional information please refer to http://education.RazorGator.Discovery Machine/faq/LIN00g9 (This link is being provided for informational/ educational purposes only.) Test Performed at: [employer] [address] [place] [address] ISABELLA RODRIGUEZ DO,MPH 03/04/2020 9:54 AM CDT 03/04/2020 9:59 AM CDT Stephy Fitzpatrick MD LAB - CHEMISTRY ABHISHEK TREVIÑO Performing Organization Address [facility] Co de Phone Number [facility] [address] [place] [address] * HEPATITIS B CORE ANTIBODY REFLEX IGM (03/04/2020 9:54 AM CDT) Pathologist [facility] Hepatitis B Core Virus Antibody Total NON-REACTI VE NON-REACT CASTRO [facility] Comment: Test Performed at: [employer] [address] ISABELLA RODRIGUEZ DO,MPH 03/04/2020 9:54 AM CDT 03/04/2020 9:59 AM CDT Stephy Fitzpatrick MD LAB - SEROLOGY ORDER MARK Performing Organization Address [facility] Co de Phone Number [facility] [id number] [place] [address] * (ABNORMAL) HEPATITIS B SURFACE ANTIBODY QUANT (03/04/2020 9:54 AM CDT) Pathologist [facility] Hepatitis B Virus Surface Antibody Quantitative <5(L) > OR = 10 mIU/mL [facility] Comment: Patient does not have immunity to hepatitis B virus. For additional information, please refer to http://education.Active Implants/faq/XFC617 (This link is being provided for informational/ educational purposes only). Test Performed at: [employer] [address] ISABELLA RODRIGUEZ DO,MPH 03/04/2020 9:54 AM CDT 03/04/2020 9:59 AM CDT Stephy Fitzpatrick MD LAB - SEROLOGY ORDER MARK Performing Organization Address [facility] Co de Phone Number [employer] [address] [place] [address] * RHEUMATOID FACTOR BLOOD QUANTITATIVE (03/04/2020 9:54 AM CDT) Only the most recent of2 resultswithin the time period is included. [facility] Rheumatoid Factor <14 <14 IU/mL [facility] Comment: Test Performed at: [employer] [address] ISABELLA RODRIGUEZ DO,MPH 03/04/2020 9:54 AM CDT 03/04/2020 9:59 AM CDT Stephy Fitzpatrick MD LAB - CHEMISTRY ABHISHEK TREVIÑO Performing Organization Address City/[facility] Co de Phone Number [facility] [address] [place] [address] * (ABNORMAL) C-REACTIVE PROTEIN (03/04/2020 9:54 AM CDT) Only the most recent of2 resultswithin the time period is included. C-Reactive Protein 20.4(H) <8.0 mg/L [facility] Comment: Test Performed at: [employer] [facility] [address] [place] [address] ISABELLA RODRIGUEZ DO,MPH 03/04/2020 9:54 AM CDT 03/04/2020 9:59 AM CDT Stephy Fitzpatrick MD LAB - CHEMISTRY ABHISHEK TREVIÑO Performing Organization Address [facility] Co de Phone Number [facility] [address] [place] [address] * HLA TYPING B27 (03/04/2020 9:54 AM CDT) Pathologist [facility] HLA-B27 Antigen NEGATIVE NEGATIVE [facility] Comment: Test Performed at: [employer]/[facility] [address] [place] [address] AGUS WEIR MD,PHD,FÉLIX 03/04/2020 9:54 AM CDT 03/04/2020 9:59 AM CDT Stephy Fitzpatrick MD LAB - CHEMISTRY ABHISHEK TREVIÑO Performing Organization Address City/[facility] Co de Phone Number [facility] [address] [place] [address] * VITAMIN D 25-HYDROXY (03/04/2020 9:54 AM [...] D, (D2,D3), LC/MS/MS is recommended: order code 69572 (patients >2yrs). See Note 1 Note 1 For additional information, please refer to http://education.Neos Corporation/faq/IDJ994 (This link is being provided for informational/ educational purposes only.) Test Performed at: [address] [employer] [place] [address] ISABELLA RODRIGUEZ DO,MPH 03/04/2020 9:54 AM CDT 03/04/2020 9:59 AM CDT Stephy Fitzpatrick MD LAB - CHEMISTRY ABHISHEK TREVIÑO Performing Organization Address [facility] de Phone Number [address] [address] * CYCLIC CITRULLINATED PEPTIDE(CCP) AB IGG (03/04/2020 9:54 AM CDT) Only the most recent of2 resultswithin the time period is included. [facility] Cyclic Citrullinated Peptide Antibody IgG <16 UNITS [employer] Comment: Reference Range Negative: <20 Weak Positive: 20-39 Moderate Positive: 40-59 Strong Positive: >59 Test Performed at: [place] [address] ISABELLA RODRIGUEZ DO,MPH 03/04/2020 9:54 AM CDT 03/04/2020 9:59 AM CDT Stephy Fitzpatrikc MD LAB - CHEMISTRY ABHISHEK TREVIÑO Performing Organization Address [facility] de Phone Number [address] [address] * (ABNORMAL) ERYTHROCYTE SEDIMENTATION RATE (03/04/2020 9:54 AM CDT) Only the most recent of2 resultswithin the time period is included. Erythrocyte Sedimentation Rate Westergren 34(H) < OR = 30 mm/h [facility] Comment: Test Performed at: [employer] [address] RODOLFO NAM MD 03/04/2020 9:54 AM CDT 03/04/2020 9:59 AM CDT Stephy Fitzpatrick MD LAB - HEMATOLOGY ORD ERABLES [address] [address] * (ABNORMAL) URINALYSIS REFLEX TO MICROSCOPIC NO CULTURE (05/09/2017 1:59 PM WILDLIFE CONSERVATION PROFESSOR) Only the most recent of3 resultswithin the time period is included. Color UA YELLOW YELLOW [facility] ([facility]) Appearance CLOUDY(A) CLEAR [facility]) Specific [place] UA 1.021 1.001 - 1.035 [facility] ([facility]) [...] /LPF [facility] ([facility]) Comment: Test Performed at: [employer] [place] [address] [place] [address] ISABELLA RODRIGUEZ DO,MPH 05/09/2017 1:59 PM WILDLIFE CONSERVATION PROFESSOR 05/09/2017 2:00 PM WILDLIFE CONSERVATION PROFESSOR Yanni Song MD LAB - URIN ALYSIS ORDERABLES [facility] ([facility]) * (ABNORMAL) URINALYSIS W/MICROSCOPIC REFLEX TO CULTURE (03/18/2017 1:48 PM CDT) Only the most recent of2 resultswithin the time period is included. Color UA YELLOW YELLOW [facility] ([facility]) Appearance CLOUDY(A) CLEAR [facility] ([facility]) Specific [place] UA 1.021 1.001 - 1.035 [facility] ([facility]) pH Urine 5.5 5.0 - 8.0 [facility] ([facility]) Glucose UA NEGATIVE NEGATIVE [facility] ([facility]) Bilirubin UA NEGATIVE NEGATIVE [facility] ([facility]) Ketone UA NEGATIVE NEGATIVE [facility] ([facility]) Blood UA 1+(A) NEGATIVE [facility] ([facility]) Protein UA 1+(A) NEGATIVE [facility] ([facility]) Nitrite UA POSITIVE(A) NEGATIVE [facility] ([facility]) Leukocyte Esterase 3+(A) NEGATIVE [facility] ([facility]) WBC Urine PACKED(A) < OR = 5 /HPF [facility] ([facility]) RBC Urine 3-10(A) < OR = 2 /HPF [facility] ([facility]) Squamous Epithelial Cells UA 6-10(A) < OR = 5 /HPF [facility] ([facility]) Bacteria UA MANY(A) NONE SEEN /HPF [facility] ([facility]) Calcium Oxalate UA MANY(A) NONE OR FEW /HPF [facility] ([facility]) Hyaline Casts UA NONE SEEN NONE SEEN /LPF [facility] ([facility]) Culture Urine Comprehensive CULTURE INDICATED - RESULTS TO FOLLOW [facility] ([facility]) Urine Culture Routine SEE NOTE(A) [facility] ([facility]) Comment: CULTURE, URINE, ROUTINE MICRO NUMBER: [id number] TEST STATUS: FINAL SPECIMEN SOURCE: URINE SPECIMEN [...] REPORT COMMENT: SPECIMEN TYPE->URINE Test Performed at: [employer] [place] [address] [place] [address] ISABELLA RODRIGUEZ DO,MPH 03/18/2017 1:48 PM CDT 03/18/2017 1:48 PM CDT Yanni Song MD LAB - URIN ALYSIS ORDERABLES [facility] ([facility]) * DNA ANTIBODY DS CRITHIDIA IFA (12/14/2016 3:12 PM CDT) dsDNA Antibody Crithidia IFA NEGATIVE NEGATIVE [facility] ([facility]) Comment: Test Performed at: [employer]/[facility] [address] [place] [address] MONAE NGUYEN MD PHD 12/14/2016 3:12 PM CDT 12/14/2016 3:14 PM CDT Yanni Song MD LAB - SERO LOGY ORDERABLES [facility] ([facility]) * JIMENES (SM) ANTIBODY JAIME (12/14/2016 3:12 PM CDT) Pathologist [facility] JAIME Jimenes (SM) Antibody <1.0 NEG <1.0 NEG AI [facility] ([facility]) Comment: Test Performed at: [employer] [address] [address] ISABELLA RODRIGUEZ DO,MPH Blood specimen (specimen) BLOOD SPECIMEN / Unknown 12/14/2016 3:12 PM CDT 12/14/2016 3:14 PM CDT Yanni Song MD LAB - CHEM ISTRY ORDERABLES Performing Organization Address [facility] de Phone Number [facility] ([facility]) * WAREHOUSE FOREMAN ANTIBODY (12/14/2016 3:12 PM CDT) Pathologist [facility] JAIME WAREHOUSE FOREMAN Antibody <1.0 NEG <1.0 NEG AI [facility] ([facility]) Comment: Test Performed at: [place] [address] ISABELLA RODRIGUEZ DO,MPH Blood specimen (specimen) BLOOD SPECIMEN / Unknown 12/14/2016 3:12 PM CDT 12/14/2016 3:14 PM CDT Yanni Song MD LAB - CHEM ISTRY ORDERABLES Performing Organization Address [facility] de Phone Number [facility] ([facility]) * NEOM BLOOD SCREEN W/REFLEX TITER (12/14/2016 3:12 PM CDT) Pathologist [facility] NEMO Screen NEGATIVE NEGATIVE [facility] ([facility]) Comment: NEMO IFA is a first line screen for detecting the presence of up to approximately 150 autoantibodies in various autoimmune diseases. A negative NEMO IFA result suggests NEMO-associated autoimmune diseases are not present at this time. Visit Physician FAQs for interpretation of all antibodies in the [place], prevalence, and association with diseases at http://education.Neos Corporation/ faq/AAK026 Test Performed at: [employer] [address] ISABELLA RODRIGUEZ DO,MPH Blood specimen (specimen) BLOOD SPECIMEN / Unknown 12/14/2016 3:12 PM CDT 12/14/2016 3:14 PM CDT Yanni Song MD LAB - CHEM ISTRY ORDERABLES Performing Organization Address [facility] Co de Phone Number [facility] ([facility]) * SS-A/SS-B (SJOGRENS) ANTIBODY PANEL (12/14/2016 3:12 PM CDT) Sjogren's Antibodies (SSA) <1.0 NEG <1.0 NEG AI [facility] ([facility]) Sjogren's Antibodies (SSB) <1.0 NEG <1.0 NEG AI [facility] ([facility]) Comment: Test Performed at: [employer] [address] [employer] [address] ISABELLA RODRIGUEZ DO,MPH 12/14/2016 3:12 PM CDT 12/14/2016 3:14 PM CDT Yanni Song MD LAB - CHEM ISTRY ORDERABLES Performing Organization Address [facility] Phone Number [facility] ([facility]) * DNA ANTIBODY DOUBLE STRANDED (12/14/2016 3:12 PM CDT) dsDNA Antibody 2 IU/mL [facility] ([facility]) Comment: IU/mL Interpretation < or = 4 Negative 5-9 Indeterminate > or = 10 Positive Test Performed at: [employer] [address] [employer] [address] ISABELLA RODRIGUEZ DO,MPH Blood specimen (specimen) BLOOD SPECIMEN / Unknown 12/14/2016 3:12 PM CDT 12/14/2016 3:14 PM CDT Yanni Song MD LAB - NORBERT TOLOGY ORDERABLES Performing Organization Address [facility]/ZIP Co de Phone Number [facility] ([facility]) * TSH (12/14/2016 3:12 PM CDT) [facility] TSH 2.34 0.40 - 4.50 mIU/L [facility] ([facility]) Comment: Test Performed at: [employer] [facility] [place] [address] ISABELLA RODRIGUEZ DO,MPH Blood specimen (specimen) BLOOD SPECIMEN / Unknown 12/14/2016 3:12 PM CDT 12/14/2016 3:14 PM CDT Yanni Song MD LAB - CHEM ISTRY ORDERABLES [facility] ([facility]) * QUANTIFERON TB-GOLD INC (11/07/2016 1:53 PM CDT) [facility] QuantiFERON TB Gold NEGATIVE NEGATIVE [facility] ([facility]) Comment: Negative test result. M. tuberculosis complex infection unlikely. QuantiFERON Nil Value 0.00 IU/mL [facility] ([facility]) QuantiFERON Mitogen Value >10.00 IU/mL [facility] ([facility]) QuantiFERON TB Antigen minus Nil value <0.00 IU/mL [facility] ([facility]) Comment: The Nil tube value is [...] IU/mL. For additional information, please refer to http://education.RazorGator.Discovery Machine/faq/QFT (This link is being provided for informational/ educational purposes only.) REPORT COMMENT: COLLECTION REQUIREMENTS NOT MET. PATIENT ADVISED TO RETURN. Test Performed at: [place] [address] ISABELLA RODRIGUEZ DO,MPH 11/07/2016 1:53 PM CDT 11/07/2016 1:59 PM CDT Maren Hudson MD LAB - SEROLOGY ORD ERABLES Performing Organization Address [facility]/ZIP Co de Phone Number [facility] ([facility]) * HEPATITIS SCREEN ACUTE (11/07/2016 1:53 PM CDT) Hepatitis A Virus Antibody IgM NON-REACTI VE NON-REACT CASTRO [facility] ([facility]) Hepatitis B Virus Surface Antigen NON-REACTI VE NON-REACT CASTRO [facility] ([facility]) Hepatitis B Core Virus Antibody IgM NON-REACTI VE NON-REACT CASTRO [facility] ([facility]) Hepatitis C Antibody NON-REACTI VE NON-REACT CASTRO [facility] ([facility]) Signal/Cutoff 0.02 <1.00 [facility] ([facility]) Comment: Test Performed at: [place] [address] ISABELLA RODRIGUEZ DO,MPH Blood specimen (specimen) BLOOD SPECIMEN / Unknown 11/07/2016 1:53 PM CDT 11/07/2016 1:59 PM CDT Maren Hudson MD LAB - CHEMISTRY OR DERABLES Performing Organization Address [facility]/ZIP Co de Phone Number [facility] ([facility]) * (ABNORMAL) CULTURE URINE (04/29/2014 3:01 PM CDT) Pathologist [facility] Culture Urine ESCHERICHIA COLI(A) [facility] Comment:Greater than 1,000,0 00 CFU/ML Escherichia Coli Urine specimen (specimen) URINE SPECIMEN OBTAINED BY CLEAN CATCH PROCEDURE / Unknown 04/29/2014 3:01 PM CDT 04/29/2014 10:01 PM CDT Narrative [facility] - 05/01/2014 12:38 PM CDT HollisSpecimen#[id number] [facility] Loc/Rm/Bed: EXPCARE C// CLN CATCH U [...] Historical Provider LAB - MICROBIOLOG Y ORDERABLES [facility] [address] [place] [address] Care Teams Tank Builder And Erector Relationship Specialty Start Date End Date John Gomez DO [address] [place] [address] PCP - General 04/11/21
--- OUTSIDE RECORDS SUMMARY | 2024-08-23 17:14 | XMS_ITS | Data Portability ---
Author Organization [place] - [facility] OFFICE Address [address] [place] [address] Care Team Providers Care Epic Prelude Analyst Name Role Phone KULWINDER BENSON Primary Care [...] current medications, and medical follow-up as noted. [email or web address] Not available 11/01/2021 12:15:18 01/03/2022 01/03/2022 Discussed with patient findings, diagnosis, and prognosis. Discussed evaluation and treatment options including risks and benefits with patient, and patient expressed understanding. The following interventions were recommended: heart healthy low-fat, low-sodium diet, avoid strenuous exercise pending completion of cardiovascular evaluation,mainta in appropriate weight, continue current medications, and medical follow-up as noted. [email or web address] Not available 01/03/2022 18:03:43 02/14/2022 02/14/2022 Discussed [...] current medications, and medical follow-up as noted. [email or web address] Not available 07/18/2022 15:58:18 11/14/2022 11/14/2022 Discussed with patient findings, diagnosis, and prognosis. Discussed evaluation and treatment options including risks and benefits with patient, and patient expressed understanding. The following interventions were recommended: heart healthy low-fat, low-sodium diet, continue regular exercise,maintain appropriate weight, continue current medications, and medical follow-up as noted. [email or web address] Not available 11/14/2022 14:46:24 Plan of Treatment Reminders Order Date Submit Date Provider Last Modified By Organization Details Last Modified Time Details Appointments None recorded. Lab None recorded. Referral None recorded. Procedures None recorded. Surgeries None recorded. Imaging None recorded. Medication Orders pravastatin 40 mg tablet 2022 023 [facility] [address], [address] [place], [address], 15:16:09 aspirin 81 mg tablet,brooklyn yed release 2022 023 [email or web address] [facility], [address] [place], [address], 3 11:32:36 furosemide 40 mg tablet [address] [facility] [address], [address] [place], [address], 3 15:11:23 furosemide 20 mg tablet [address] [facility] [address], [address] [place], [address], 2 16:27:22 potassium chloride ER 10 mEq tablet,exte nded release [address], [address] [facility], [place], [address], 15:56:08 icosapent ethyl 1 gram capsule 2021 022 [email or web address] [facility] [address], [address] [facility], [place], [address], 14:59:33 Patient TargetsNo targets recorded. Patient Instructions Encounter Date Encounter Id Patient Instructions Last Modified By Organization Details Last Modified Time 11/01/2021 [id number] learning about type 2 diabetes [email or web address] Not available 11/01/2021 12:27:21 type 2 diabetes: care instructions [email or web address] Not available 11/01/2021 12:27:21 high cholesterol : care instructions [email or web address] Not available 11/01/2021 12:27:20 learning about low-fat eating [email or web address] Not available 11/01/2021 12:27:21 chronic obstructive pulmonary disease (COPD): care instructions [email or web address] Not available 11/01/2021 12:27:21 learning about copd and how to prevent lung infections [email or web address] Not available 11/01/2021 12:27:21 When You Want to Lose Weight: Care Instructions [email or web address] Not available 11/01/2021 12:27:21 sleep apnea: car e instructions Not available 11/01/2021 12:27:20 atrial fibrillation: care instructions Not available 11/01/2021 12:27:20 hypothyroidism: care instructions [email or web address] Not available 11/01/2021 12:27:21 01/03/2022 [id number] learning about type 2 diabetes [email or web address] Not available 01/03/2022 18:04:53 type 2 diabetes: care instructions [email or web address] Not available 01/03/2022 18:04:53 high cholesterol : care instructions Not available 01/03/2022 18:04:53 learning about low-fat eating [email or web address] Not available 01/03/2022 18:04:53 chronic obstructive pulmonary disease (COPD): care instructions [email or web address] Not available 01/03/2022 18:04:53 learning about copd and how to prevent lung infections [email or web address] Not available 01/03/2022 18:04:53 When You Want to Lose Weight: Care Instructions [email or web address] Not available 01/03/2022 18:04:53 leg and ankle edema: care instructions [email or web address] Not available 01/03/2022 18:04:53 sleep apnea: car e instructions [email or web address] Not available 01/03/2022 18:04:53 atrial fibrillation: care instructions [email or web address] Not available 01/03/2022 18:04:52 hypothyroidism: care instructions Not available 01/03/2022 18:04:53 02/14/2022 [id number] learning about type 2 diabetes [email or web address] Not available 02/14/2022 16:38:13 type 2 diabetes: care instructions [email or web address] Not available 02/14/2022 16:38:13 high cholesterol : care instructions [email or web address] Not available 02/14/2022 16:38:13 learning about low-fat eating [email or web address] Not available 02/14/2022 16:38:13 chronic obstructive pulmonary disease (COPD): care instructions [email or web address] Not available 02/14/2022 16:38:14 learning about copd and how to prevent lung infections [email or web address] Not available 02/14/2022 16:38:13 When You Want to Lose Weight: Care Instructions Not available 02/14/2022 16:38:13 leg and ankle edema: care instructions Not available 02/14/2022 16:38:13 sleep apnea: car e instructions [email or web address] Not available 02/14/2022 16:38:13 atrial fibrillation: care instructions Not available 02/14/2022 16:38:14 hypothyroidism: care instructions [email or web address] Not available 02/14/2022 16:38:13 07/18/2022 [id number] learning about type 2 diabetes Not available 07/18/2022 16:12:12 type 2 diabetes: care instructions [email or web address] Not available 07/18/2022 16:12:12 high cholesterol : care instructions [email or web address] Not available 07/18/2022 16:12:12 learning about low-fat eating [email or web address] Not available 07/18/2022 16:12:12 chronic obstructive pulmonary disease (COPD): care instructions Not available 07/18/2022 16:12:12 learning about copd and how to prevent lung infections [email or web address] Not available 07/18/2022 16:12:12 When You Want to Lose Weight: Care Instructions [email or web address] Not available 07/18/2022 16:12:12 leg and ankle edema: care instructions [email or web address] Not available 07/18/2022 16:12:12 sleep apnea: car e instructions Not available 07/18/2022 16:12:12 atrial fibrillation: care instructions [email or web address] Not available 07/18/2022 16:12:12 hypothyroidism: care instructions [email or web address] Not available 07/18/2022 16:12:12 11/14/2022 [id number] learning about type 2 diabetes [email or web address] Not available 11/14/2022 15:16:03 type 2 diabetes: care instructions [email or web address] Not available 11/14/2022 15:16:03 high cholesterol : care instructions [email or web address] Not available 11/14/2022 15:16:03 learning about low-fat eating [email or web address] Not available 11/14/2022 15:16:03 chronic obstructive pulmonary disease (COPD): care instructions Not available 11/14/2022 15:16:03 learning about copd and how to prevent lung infections Not available 11/14/2022 15:16:03 When You Want to Lose Weight: Care Instructions [email or web address] Not available 11/14/2022 15:16:04 leg and ankle edema: care instructions [email or web address] Not available 11/14/2022 15:16:03 sleep apnea: car e instructions [email or web address] Not available 11/14/2022 15:16:03 atrial fibrillation: care instructions [email or web address] Not available 11/14/2022 15:16:03 hypothyroidism: care instructions Not available 11/14/2022 15:16:04 Reason for Referral [...] ation record ed. [facility] [address], [place], [address], 02/13/2022 14:57:12 02/14/20 22 02/07/2022 US, echoc [...] Organization Details Recorded Time Coronary arterioscle rosis 95477650 Active 2020 Cardiac cath Mar 2021 25-50% shira saenz lve [place], [place] - [facility] 1 18:35:37 Heart failure with normal ejection fraction 533832646 Active 2021 Franco Lopes [place] - [facility] 2 14:54:17 Edema of lower extremity 211712768 Active 2021 Franco Lopes [place], [place] - [facility] 2 18:04:31 Atrial fibrillatio n 12652041 Active 2016 Sourav [place] [facility] 7 14:07:42 Benign essential hypertensio n 6018764 Active 2016 Sou[place] [facility] 7 14:07:54 Aortic aneurysm 38740814 Active 2016 Sou[place] [facility] 7 14:08:06 Hypothyroid ism 50396189 Active 2016 Sou[place] [facility] 7 14:08:21 Type 2 diabetes mellitus 53564087 Active 2016 Sou[place] [facility] 7 14:08:37 Chronic obstructive pulmonary disease 17732577 Active 2016 Sou[place] [facility] 7 14:08:53 Obstructive sleep apnea syndrome 64387782 Active 2016 Sou[place] [facility] 7 14:09:07 Obesity 796061460 Active 2016 Sou[place] [facility] 7 14:09:43 Bipolar disorder 24221552 Active 2016 [place] [facility] 7 14:09:53 Psoriatic arthritis 787285318 Active 2016 Sou[place] [facility] 7 14:10:13 Asthma 918248824 Active 2016 Gina [place] [facility] 7 11:48:21 Degeneratio n of interverteb ral disc 19717924 Active 2016 G[place] [facility] 7 11:48:48 Depressive disorder 88575883 Active 2016 Gina sinha, [place] - [facility] 7 11:48:59 Dyspnea 756420809 [facility] 7 11:51:25 Edema 874473661 Active [facility] 7 11:51:31 Rectal hemorrhage 74905979 [facility] 7 11:52:02 Congestive heart failure 54377582 Active 2016 [facility] 7 13:45:14 Urine culture - Proteus 728761228 Active 2016 Franco Lopes [facility] 7 13:19:17 Hypercalcem ia 48834485 Active 2017 Franco Lopes [facility] 8 11:49:10 Pain in right lower limb 407570948 Active 2017 Franco Lopes [facility] 8 16:22:02 Hyperlipide javed 49024400 Active 2017 Franco Lopes [facility] 8 16:55:36 Dyspnea on exertion 72781042 Active 2020 Franco Lopes [facility] 1 15:58:43 Problem Notes None recorded. Procedures Surgical History Date Name Laterality Status Provider Name and Address Organization Details Recorded Time Unlisted px foot/toes completed [facility] 06/03/2017 11:50:41 Hysterectomy completed [facility] 06/03/2017 11:50:47 Hernia Repair completed [facility] 06/03/2017 11:50:52 Cholecystectomy completed [facility] 06/03/2017 11:50:57 Imaging Results Imaging Date Name Status LastModified by Organization Details LastModified Time 12/06/2021 CT, angiogram, chest, w/ contrast completed Information not available 12/18/2021 11:41:59 01/03/2022 electrocardiogram completed Informa tion not available 01/04/2022 10:23:29 01/19/2022 US, doppler, venous completed Infor mation not available 01/24/2022 11:40:39 02/07/2022 US, echocardiogram completed [facility] [address], [place], [address], 02/13/2022 14:57:12 02/07/2022 US, echocardiogram completed Inform [...] Not available 05/31/2017 4053 RxNorm Sourav Diaz [facility] 7 14:15:15 5537 levofloxa ricci medicatio n Not available Not available Not available 05/31/2017 74185 RxNorm Sourav Diaz [facility] 7 14:15:25 5538 Substance with sulfonami de structure and antibacte rial mechanism of action (substanc e) medicatio n Not available Not available Not available 05/31/2017 52807 8003 SNOMED Sourav Diaz [facility], [facility] 7 14:15:33 5539 theophyll ine medicatio n Not available Not available Not available 05/31/2017 05302 RxNorm Sourav Diaz [facility] 7 14:16:31 Medications Name Sig Start Date [...] 06/21 completed Patient to stop Vit D. 970279Qb yahaira to call pt [id number]. Not Available Not Available Not Available hydrocort [...] Not Available No t Available Vitamin D3 32115 1 q week for 8 weeks 09/12 [...] No t Available Lite Touch Insulin Pen [place] 31 gauge x 09/13 completed Not Available [...] Not Available No t Available Fluarix Quad [id number] (PF) 60 mcg (15 mcg x 4)/0.5 [...] Updated DateTime 2 172.72 cm 49 kg/m2 106392. 74 g 88 /min 94 % 94 % 142 mm[Hg] 82 mm[Hg] Joycelyn Robbins [facility] 2 11:28:43 Date Recorded Body height Body mass index (BMI) Body weight Heart rate Oxygen saturation Oxygen saturation in Arterial blood by Pulse oximetry Systolic blood pressure Diastolic blood pressure Provider Name and Address Organization Details Last Updated DateTime 2 172.72 cm 50.9 kg/m2 417788. 44 g 95 /min 94 % 94 % 148 mm[Hg] 82 mm[Hg] [facility]i [facility] 2 15:50:44 Date Recorded Body height Body mass index (BMI) Body weight Heart rate Respiratory rate Oxygen saturation Oxygen saturation in Arterial blood by Pulse oximetry Inhaled oxygen flow rate Systolic blood pressure Diastolic blood pressure Provider Name and Address Organization Details Last Updated DateTime 2 172.72 cm 50.8 kg/m2 208161. 85 g 102 /min 16 /min 91 % 91 % 2 L/min 132 mm[Hg] 68 mm[Hg] Cali Pand[facility] 2 15:24:30 Date Recorded Body height Body mass index (BMI) Body weight Heart rate Respiratory rate Oxygen saturation Oxygen saturation in Arterial blood by Pulse oximetry Systolic blood pressure Diastolic blood pressure Provider Name and Address Organization Details Last Updated DateTime 3 172.72 cm 48.4 kg/m2 748877. 37 g 88 /min 16 /min 93 % 93 % 132 mm[Hg] 82 mm[Hg] Cali Pandey [facility] 3 14:39:23 Date Recorded Body height Body mass index (BMI) Body weight Oxygen saturation Oxygen saturation in Arterial blood by Pulse oximetry Heart rate Systolic blood pressure Diastolic blood pressure Provider Name and Address Organization Details Last Updated DateTime 3 172.72 cm 43.7 kg/m2 882460. 52 g 92 % 92 % 78 /min 122 mm[Hg] 84 mm[Hg] TAMMY VISHAL [facility] 3 14:22:56 Social History Question Answer Notes LastModified by Organizat ion Details LastModified Time Tobacco Smoking Status Never Smoker Second hand smoker Not Available [facility] 05/03/2020 03:30:41 What Is Your Level Of Alcohol Consumption? None [id number] Information not available 05/03/2020 What Is Your Level Of Caffeine Consumption? Occasional [id number] Information not available 05/03/2020 How Much Tobacco Do You Chew? None [id number] Information not available 05/03/2020 What Type Of Diet Are You Following? DIABETIC [id number] Information not available 05/03/2020 Which Illicit Or Recreational Drugs Have You Used? No [id number] Information not available 05/03/2020 Do You Or Have You Ever Used E-cigarettes Or Vape? Never Used Electronic Cigarettes [id number] Information not available 05/03/2020 Live Alone Or With Others? Alone [email or web address] Information not available 06/03/2017 Marital Status Informatio n not available 06/03/2017 What Was The Date Of Your Most Recent Tobacco Screening? 12/08/2018 [id number] Information not available 05/03/2020 How Many Children Do You Have? 3 [id number] Information not available 05/03/2020 Do You Or Have You Ever Used Smokeless Tobacco? Never Used Smokeless Tobacco [id number] Information not available 05/03/2020 How Much Tobacco Do You Smoke? No [id number] Information not available 05/03/2020 General Stress Level Low [email or web address] Information not available 06/03/2017 How Many Years Have You Smoked Tobacco? 0 [id number] Information not available 05/03/2020 Sex: Unknown Functional Status Question Answer Note LastModified by Organization D etails LastModified Time What is your exercise level? None [id number] Information not available 05/03/2020 Mental Status None recorded. Family History Relationship Description Onset Age of this Age Resolved Age Notes LastModified by Organization Details LastModified Time Father Intracranial aneurysm [email or web address] Not available 2016 14:12:50 Father Heart disease [email or web address] Not available 2016 11:49:19 Father Myocardial infarction [email or web address] Not available 06/03 11:49:24 Mother Diabetes mellitus [email or web address] Not available 2016 11:49:36 Sister Diabetes mellitus Not available 2016 11:49:36 Sister Hypercholest erolemia [email or web address] Not available 2016 11:49:45 Medical History Condition Response Diabetes Y Atrial Fibrillation Y Thyroid Disease Y Sleep Apnea Y Aortic Aneurysm Y Hypertension Y COPD Y Gynecological HistoryNo gynecological history recorded. Obstetrics History GPAL:G 0 P 0 0 0 0 Past Encounters Encounter ID Performer Location Encounter Start Date Encounter Closed Date Diagnosis/Indication Diagnosis SNOMED-CT Code Diagnosis ICD10 Code Diagnosis Note [id number] Franco Lopes [facility] [address] [place] [address] 06/03/2017 11:08:04 06/04/2017 10:26:41 Benign essential hypertension 4626798 I10 Patient's blood pressure is {{well-con trolled* [...] less daily). Type 2 eliazar betes mellitus 24965793 E11.59 Discussed importance of tight glycemic control to minimize cardiovasc ular disease progressio n. Atrial fibrillation 4943 6004 I48.91 EKG today with atrial fibrillati on with HR 93 bpm. Needs eventual outpatient Lexiscan to exclude ischemia as cause of afib. Resume Coumadin 2 mg qHS. Pt to call if bleeding resumes. INR in 4 days. Aortic aneurysm 04245433 I71.[address] Obstructiv e sleep apnea syndrome 95694670 G47.33 On CPAP. Congestive heart failure 64642112 I50.9 Pt with HF-pEF. Pt reports increased B LE edema since discharge and had increased to Lasix 40 mg bid 05/31/17. Increased from 40 mg bid to 80 mg bid and added metolazone 2.5 mg qd. 06/03/17. BMP 4 days. RTC 1 wk. [id number] Franco Lopes [facility] [address] [place] [address] 06/17/2017 10:39:30 06/17/2017 16:07:22 Benign essential hypertension 2935550 I10 Patient's blood pressure is {{well-con trolled* [...] untill digoxin level assessed. Congestive heart failure 56719608 I50.9 Pt with HF-pEF. Currently euvolemic. Pt [...] 1 week. Type 2 eliazar betes mellitus 54744297 E11.59 Discussed importance of tight glycemic control to minimize cardiovasc ular disease progressio n. Aortic aneurysm 82287509 I71.[address] Obstructiv e sleep apnea syndrome 75905330 G47.33 On CPAP. [id number] Franco Lopes [facility] [address] [place] [address] 06/26/2017 11:44:16 06/27/2017 10:04:12 Benign essential hypertension 6011449 I10 Patient's blood pressure is {{well-con trolled* [...] 1 week. Continue digoxin. Congestive heart failure 54163883 I50.9 Pt with HF-pEF. Currently euvolemic. Pt [...] supplement . Type 2 eliazar betes mellitus 33344400 E11.59 Discussed importance of tight glycemic control to minimize cardiovasc ular disease progressio n. Aortic aneurysm 41090992 I71.[address] Heart healthy, low-fat, low-choles terol, diabetic diet, with job change crew member consult. Obstructiv e sleep apnea syndrome 26608138 G47.33 On CPAP. Urine cult ure - Proteus 670797068 R82.79 She reports nausea for 3 weeks and bilateral inguinal discomfort for 1 week without dysuria, with reduced urine output and elevated Cr. Had urine culture 06/19/17 with >100,000 cfu/mL Proteus mirabilis. Patient needs follow-up with PCP KAYA. Began Augmentin 875/125 mg bid for 7 days. Repeat CMP for Cr and Ca/Mg in 10 days. [id number] Franco Lopes [facility] [address] [place] [address] 07/10/2017 11:11:43 07/11/2017 10:30:51 Benign essential hypertension 6811731 I10 Patient's blood pressure is {{well-con trolled* [...] 07/10/17 for Mg 1.1. Congestive heart failure 71641041 I50.9 Pt with HF-pEF. Currently euvolemic. Pt [...] supplement . Type 2 eliazar betes mellitus 70916449 E11.59 Discussed importance of tight glycemic control to minimize cardiovasc ular disease progressio n. Aortic aneurysm 40977927 I71.[address] Heart healthy, low-fat, low-choles terol, diabetic diet, with job change crew member consult. Obstructiv e sleep apnea syndrome 52975438 G47.33 On CPAP. Continue. Tolerating . Urine cult ure - Proteus 802612838 R82.79 She reports nausea for 3 weeks and bilateral inguinal discomfort for 1 week without dysuria, with reduced urine output and elevated Cr. Had urine culture 06/19/17 with >100,000 cfu/mL Proteus mirabilis. Patient needs follow-up with PCP KAYA. Completed Augmentin 875/125 mg bid for 7 days. Hypercalcemia 57922749 E 83.52 Ca improved to 12.4 off Vit D and with increased hydration, but calcium remains elevated. PCP instructed to f/u with PCP. CMP/Mg in 2 weeks. [facility] [address] [place] [address] 08/08/2017 14:35:22 08/08/2017 16:37:44 Benign essential hypertension 7218060 I10 Patient's blood pressure is {{well-con trolled* [...] 400 mg bid 08/08/17. Congestive heart failure 45895160 I50.9 Pt with HF-pEF. Currently euvolemic. Had [...] 11.3, M.2. Type 2 eliazar betes mellitus 56471526 E11.59 Discussed importance of tight glycemic control to minimize cardiovasc ular disease progressio n. Aortic aneurysm 15547747 I71.9 Stable on CTscan 03/27/17: fusiform aneurysm of ascending aorta 4.2x4.1 cm. Heart healthy, low-fat, low-choles terol, diabetic diet, with job change crew member consult. Obstructiv e sleep apnea syndrome 06832607 G47.33 On CPAP. Continue. Tolerating . Urine cult ure - Proteus 555989632 R82.79 She reports nausea for 3 weeks and bilateral inguinal discomfort for 1 week without dysuria, with reduced urine output and elevated Cr. Had urine culture 06/19/17 with >100,000 cfu/mL Proteus mirabilis. Patient needs follow-up with PCP KAYA. Completed Augmentin 875/125 mg bid for 7 days. Hypercalcemia 76467301 E 83.52 Ca improved to 12.4 off Vit D and with increased hydration, but calcium remains elevated. Had 08/08/17: Ca 11.3. Pt instructed to f/u with PCP or endocrinol ogist for workup of hypercalce javed and possible parathyroi d disease. CMP/Mg in 4 weeks. Pain in ri ght lower limb 570016130 M79.604 Mild edema and pain right posterior knee and leg. Obtain LE Doppler. [id number] Franco Bahhman [facility] [address] [place] [address] 09/18/2017 14:53:43 09/25/2017 15:10:13 Essential hypertension 43768389 I10 Patient's blood pressure is {{well-con trolled* [...] less daily). Chronic ob structive pulmonary disease 51927848 J44.9 On Oxygen 1-2 L NC Type 2 eliazar betes mellitus 93705452 E11.59 Discussed importance of tight glycemic control [...] Mg 1.4 09/11/17. Atypical chest pain 1025 06153 R07.89 Atypical. Intermitte nt chest pain which [...] GERD or diabetic gastropare sis. Aortic aneurysm 18577541 I71.[address] scan 03/27/17: fusiform aneurysm of ascending aorta 4.2x4.1 cm. Heart healthy, low-fat, low-choles terol, diabetic diet, with job change crew member consult. Hyperlipidemia 17302644 E78.5 Needs to keep LDL less than 70, and HDL more than 40. Obtain FLP. [id number] [facility] OFF[facility] [address] [place] [address] 11/18/2017 16:10:22 11/18/2017 17:41:52 Atypical chest pain 426070300 R07.89 Resolved. Had Dobutamine Myocardial Perfusion Study [...] GERD or diabetic gastropare sis. Essential hypertension 05759003 I10 Patient's blood pressure is {{well-con trolled* [...] per PCP. Chronic ob structive pulmonary disease 77625131 J44.9 On Oxygen 1-2 L NC. Needs f/u with pulm. for considerat ion of bronchodil ator therapy. Type 2 eliazar betes mellitus 86842715 E11.59 Discussed importance of tight glycemic control to minimize cardiovasc ular disease progressio n. Aortic aneurysm 84563511 I71.[address] scan 03/27/17: fusiform aneurysm of ascending aorta 4.2x4.1 cm. Needs [address] f/u as per PCP 03/2018. Heart healthy, low-fat, low-choles terol, diabetic diet, with job change crew member consult. Hyperlipidemia 96138348 E78.5 Needs to keep LDL less than 70, and HDL more than 40. Had LDL 92 10/01/17. Patient wants to talk to PCP before starting statin. Obstructiv e sleep apnea syndrome 65586311 G47.33 On CPAP. Continue. Needs to resume while waiting on new mask. [id number] Franco Lopes [facility] OFFICE [facility] [place] [address] 12/02/2017 16:26:52 12/02/2017 18:51:29 Atypical chest pain [id number] R07.89 Resolved. Had Dobutamine Myocardial Perfusion Study [...] GERD or diabetic gastropare sis. Essential hypertension 52067606 I10 Patient's blood pressure is {{well-con trolled [...] CMP, Mg. Chronic ob structive pulmonary disease 11253674 J44.9 On Oxygen 1-2 L NC. Needs f/u with pulm. for considerat ion of bronchodil ator therapy. Type 2 eliazar betes mellitus 52880497 E11.59 Discussed importance of tight glycemic control to minimize cardiovasc ular disease progressio n. Aortic aneurysm 12512860 I71.[address] scan 03/27/17: fusiform [...] healthy, low-fat, low-choles terol, diabetic diet, with job change crew member consult. Hyperlipidemia 68678233 E78.5 Needs to keep LDL less than 70, and HDL more than 40. Had LDL 92 10/01/17. Began atorvastat in 20mg qHS 12/02/17. Obstructiv e sleep apnea syndrome 25307825 G47.33 On CPAP. Continue. Needs to resume while waiting on new mask. [id number] Franco Moses [facility] OFFICE [address] [place] [address] 01/22/2018 15:59:36 01/23/2018 18:49:41 Atypical chest pain 469249824 R07.89 Resolved. Had Dobutamine Myocardial Perfusion Study [...] GERD or diabetic gastropare sis. Essential hypertension 39329918 I10 Patient's blood pressure is {{well-con trolled [...] increased Cr. Chronic ob structive pulmonary disease 96675874 J44.9 On Oxygen 1-2 L NC. Needs f/u with pulm. Type 2 eliazar betes mellitus 65869556 E11.59 Discussed importance of tight glycemic control to minimize cardiovasc ular disease progressio n. Aortic aneurysm 24545708 I71.[address] scan 03/27/17: fusiform [...] healthy, low-fat, low-choles terol, diabetic diet, with job change crew member consult. Hyperlipidemia 65567788 E78.5 Needs to keep LDL less than 70, and HDL more than 40. Had LDL 92 10/01/17. Had 01/02/18: TC 192, HDL 30, TG 274, LDL 120, CK 21. Began atorvastat in 20mg qHS 01/22/18. FLP 1 mo. Obstructiv e sleep apnea syndrome 31600616 G47.33 On CPAP. Continue. Followed by pulmonolog ist. [id number] Franco Lopes [facility] OFFICE [facility] [place] [address] 04/02/2018 14:49:32 04/02/2018 17:14:31 Hyperlipidemia 82989564 E78.5 Needs to keep LDL less than 70, and HDL more than 40. Had LDL 92 10/01/17. Had 01/02/18: TC 192, HDL 30, TG 274, LDL 120, CK 21. Began atorvastat in 20 mg qHS 01/22/18. Had FLP 02/19/18: TG 224, LDL 72. Patient does not want to increase statin at this time. Atypical chest pain 1025 61473 R07.89 Stable. Atypical. Had Dobutamine Myocardial Perfusion [...] GERD, or diabetic gastropare sis. Essential hypertension 46181448 I10 Patient's blood pressure is {{well-con trolled* [...] and EKG. Coumadin changed. INR 1.[address] [facility]. Continue digoxin. Began MgOxide 07/10/17 for [...] Mg 1.9. Chronic ob structive pulmonary disease 84904880 J44.9 On Oxygen 1-2 L NC. Needs f/u with pulm. Type 2 eliazar betes mellitus 04488339 E11.59 Discussed importance of tight glycemic control to minimize cardiovasc ular disease progressio n. Aortic aneurysm 94809522 I71.[address] scan 03/27/17: fusiform [...] healthy, low-fat, low-choles terol, diabetic diet, with job change crew member consult. Obstructiv e sleep apnea syndrome 70338406 G47.33 On CPAP. Continue. Followed by pulmonolog ist. [id number] Franco Bahhman Perry OFFICE [address] [place] [address] 10/01/2018 15:41:45 10/01/2018 17:17:11 Hyperlipidemia 89063174 E78.5 Needs to keep LDL less than [...] FLP 1 mo. Atypical chest pain 1025 69502 R07.89 Improved. Atypical. Had Dobutamine Myocardial Perfusion [...] GERD, or diabetic gastropare sis. Essential hypertension 89281629 I10 Patient's blood pressure is {{well-con trolled* [...] and EKG. Coumadin changed. INR 2.[address] [facility]. Continue digoxin. Began MgOxide 07/10/17 for [...] HgbA1C 10.5%, Chronic ob structive pulmonary disease 51381150 J44.9 On Oxygen 1-2 L NC prn. Needs f/u with pulm. Type 2 eliazar betes mellitus 15349266 E11.59 Discussed importance of tight glycemic control to minimize cardiovasc ular disease progressio n. Aortic aneurysm 89082937 I71.[address] of chest 06/26/18: [...] healthy, low-fat, low-choles terol, diabetic diet, with job change crew member consult. Obtain chest CT early 2019. Obstructiv e sleep apnea syndrome 16591905 G47.33 On BiPAP. Continue. Followed by pulmonolog ist. Obesity 515453088 E66.9 20 lb. weight loss recommende d over the next 2 months. Hypothyroidism 62100927 E03.9 Medication changed recently per endocrinol ogist. Had 08/2018: free T4 0.8 normal. [id number] [facility] [address] [place] [address] 12/08/2018 15:22:53 12/08/2018 17:14:42 Hyperlipidemia 00082076 E78.5 Needs to keep LDL less than [...] gm bid 12/08/18. Atypical chest pain 1025 46350 R07.89 Improved. Atypical. Had Dobutamine Myocardial Perfusion [...] GERD, or diabetic gastropare sis. Essential hypertension 95978141 I10 Patient's blood pressure is {{well-con trolled* [...] and EKG. Coumadin changed. INR 1.[address] [facility]. Continue digoxin. Began MgOxide 07/10/17 for [...] HgbA1C 10.5%, Chronic ob structive pulmonary disease 23247481 J44.9 On Oxygen 1-2 L NC prn. Needs f/u with pulm. Type 2 eliazar betes mellitus 47861198 E11.59 Discussed importance of tight glycemic control to minimize cardiovasc ular disease progressio n. Aortic aneurysm 07222343 I71.[address] of chest 06/26/18: [...] healthy, low-fat, low-choles terol, diabetic diet, with job change crew member consult. Obtain chest CT early 2019. Obstructiv e sleep apnea syndrome 32144703 G47.33 On BiPAP. Continue. Followed by pulmonolog ist. Obesity 037717302 E66.9 20 lb. weight loss recommende d over the next 2 months. Hypothyroidism 19919231 E03.9 Medication changed recently per endocrinol ogist. Had 08/2018: free T4 0.8 normal. [address] [facility] OFFICE [facility] [place] [address] 04/08/2019 15:48:06 04/08/2019 16:48:51 Hyperlipidemia 14881271 E78.5 Needs to keep LDL less than [...] gm bid 12/08/18. Atypical chest pain 1025 67614 R07.89 Improved. Atypical. Had Dobutamine Myocardial Perfusion [...] GERD, or diabetic gastropare sis. Essential hypertension 31135696 I10 Patient's blood pressure is {{well-con trolled* [...] HgbA1C 10.5%, Chronic ob structive pulmonary disease 82128988 J44.9 On Oxygen 1-2 L NC prn. Needs f/u with pulm. Type 2 eliazar betes mellitus 21405722 E11.59 Discussed importance of tight glycemic control to minimize cardiovasc ular disease progressio n. Aortic aneurysm 99351556 I71.9 Stable. We may use 2D echo [...] healthy, low-fat, low-choles terol, diabetic diet, with job change crew member consult. Obtain chest CT early 2019. Obstructiv e sleep apnea syndrome 71909832 G47.33 On BiPAP. Continue. Followed by pulmonolog ist. Obesity 741205088 E66.9 20 lb. weight loss recommende d over the next 2 months. Hypothyroidism 76323785 E03.9 Medication changed recently per endocrinol ogist. Had 08/2018: free T4 0.8 normal. Benign hypertension 1072 5009 I10 [id number] [facility] OFFICE [address] [place] [address] 01/25/2020 16:04:16 01/25/2020 19:14:21 Hyperlipidemia 23629484 E78.5 Needs to keep LDL less than [...] gm bid 12/08/18. Atypical chest pain 1025 84603 R07.89 Improved. Atypical. Had Dobutamine Myocardial Perfusion [...] GERD, or diabetic gastropare sis. Essential hypertension 97492678 I10 Patient's blood pressure is {{well-con trolled* [...] HgbA1C 10.5%, Chronic ob structive pulmonary disease 88845201 J44.9 On Oxygen 1-2 L NC prn. Needs f/u with pulm. Type 2 eliazar betes mellitus 89727528 E11.59 Discussed importance of tight glycemic control to minimize cardiovasc ular disease progressio n. Aortic aneurysm 26849491 I71.9 Stable. aorta measures 4.3 cm on [...] healthy, low-fat, low-choles terol, diabetic diet, with job change crew member consult. Obtain chest CT early 2019. Obstructiv e sleep apnea syndrome 66736297 G47.33 On BiPAP. Continue. Followed by pulmonolog ist. Obesity 630133653 E66.9 20 lb. weight loss recommende d over the next 2 months. Hypothyroidism 86024713 E03.9 Medication changed recently per endocrinol ogist. Had 08/2018: free T4 0.8 normal. Benign hypertension 1072 5009 I10 [id number] [facility] OFFICE [address] [place] [address] 07/13/2020 14:52:41 07/13/2020 16:13:43 Hyperlipidemia 25664525 E78.5 Needs to keep LDL less than [...] patient. Obtain FLP. Atypical chest pain 1025 66102 R07.89 Atypical. Had Dobutamine Myocardial Perfusion Study 07/30/17 : Negative dobutamine stress test for ischemia. Normal LV systolic function. Abnormal stress test. Artifact noted. No previous study to compare. LVEF >60%. Consider costochond ritis, GERD, or diabetic gastropare sis. Essential hypertension 46954840 I10 Patient's blood pressure is {{well-con trolled* [...] HgbA1C 10.5%, Chronic ob structive pulmonary disease 92749416 J44.9 Needs f/u with pulm. Type 2 eliazar betes mellitus 15347216 E11.59 Discussed importance of tight glycemic control to minimize cardiovasc ular disease progressio n. Aortic aneurysm 56298086 I71.9 Stable. aorta measures 4.3 cm on [...] healthy, low-fat, low-choles terol, diabetic diet, with job change crew member consult. Obtain chest CTA 08/2020, delayed pending reduction in COVID-19 risk. Obstructiv e sleep apnea syndrome 03598935 G47.33 On BiPAP. Continue. Followed by pulmonolog ist. Obesity 501772963 E66.9 20 lb. weight loss recommende d over the next 2 months. Hypothyroidism 96548553 E03.9 PCP now following. Had 08/2018: free [...] had COVID-19 PCR positive 06/20/20 testing at [facility]. Urgent Care. Obtain CXR PA and [...] No previous study to compare. LVEF >60%. [address] Franco [facility] OFFICE [address] [place] [address] 11/30/2020 14:36:37 12/21/2020 11:37:12 Dyspnea on exertion 54085057 R06.09 Patient presents with {{chest* a rm [...] previous study to compare. LVEF >60%. Hyperlipidemia 82185626 E78.5 Needs to keep LDL less than [...] Mg, CPK, TSH. Atypical chest pain 1025 73276 R07.89 Exertional . Obtain stress test as above. Had Dobutamine Myocardial Perfusion Study 07/30/17 : Negative dobutamine stress test for ischemia. Normal LV systolic function. Abnormal stress test. Artifact noted. No previous study to compare. LVEF >60%. Consider costochond ritis, GERD, or diabetic gastropare sis. Essential hypertension 34476451 I10 Patient's blood pressure is {{well-con trolled [...] and HTN. Chronic ob structive pulmonary disease 77013796 J44.9 Needs f/u with pulm. Type 2 eliazar betes mellitus 06553378 E11.59 Discussed importance of tight glycemic control to minimize cardiovasc ular disease progressio n. Aortic aneurysm 23659785 I71.9 Stable. Aorta measures 4.3 cm on [...] healthy, low-fat, low-choles terol, diabetic diet, with job change crew member consult. Optimize BP and cholestero l control., Obtain next chest CTA 11/23/2021. Obstructiv e sleep apnea syndrome 67620960 G47.33 On BiPAP. Continue. Followed by pulmonolog ist. She had titration study. Obesity 241316171 E66.9 20 lb. weight loss recommende d over the next 2 months. Hypothyroidism 25437819 E03.9 PCP now following. Had 08/2018: free T4 0.8 normal. Obtain TSH. [id number] Franco Bahhman [facility] OFFICE [address] [place] [address] 02/22/2021 12:36:22 02/22/2021 14:34:49 Dyspnea on exertion 19429181 R06.09 Patient presents with {{chest* a rm [...] . The patient agrees to proceed at [facility]. #####Stop Coumadin 5 days prior to the procedure. Reduce Basaglar to 1/2 usual dose PM evening before [facility], and hold in AM of [facility]. The procedure was discussed with the patient, [...] weeks, so she needs to resume. Hyperlipidemia 32784442 E78.5 Needs to keep LDL less than [...] 160, LDL 66 Atypical chest pain 1025 68154 R07.89 Exertional . Had dobutamine nuclear stress [...] GERD, or diabetic gastropare sis. Essential hypertension 30606263 I10 Patient's blood pressure is {{well-con trolled [...] and HTN. Chronic ob structive pulmonary disease 67329009 J44.9 Needs f/u with pulm. Type 2 eliazar betes mellitus 65185788 E11.59 Discussed importance of tight glycemic control to minimize cardiovasc ular disease progressio n. Aortic aneurysm 46908912 I71.9 Stable. Aorta measures 4.3 cm on [...] healthy, low-fat, low-choles terol, diabetic diet, with job change crew member consult. Optimize BP and cholestero l control., Obtain next chest CTA 11/23/2021. Obstructiv e sleep apnea syndrome 78940700 G47.33 On BiPAP. Continue. Followed by pulmonolog ist. She had titration study. Obesity 916089216 E66.9 20 lb. weight loss recommende d over the next 2 months. Hypothyroidism 10458511 E03.9 PCP now following. Had 08/2018: free T4 0.8 normal. Obtained normal TSH 12/2020. [id number] Darell Lozada MD [facility] OFFICE [address] [place] [address] 04/04/2021 15:24:28 04/04/2021 16:14:58 Dyspnea on exertion 30514582 R06.09 with negative cathOSA treatment and follow up Hyperlipidemia 63187972 E78.5 Needs to keep LDL less than [...] 160, LDL 66 Atypical chest pain 1025 74606 R07.89 Exertional . Had dobutamine nuclear stress [...] GERD, or diabetic gastropare sis. Essential hypertension 13192679 I10 Seems to be well compensate d [...] bid 08/08/17. Chronic ob structive pulmonary disease 33346396 J44.9 Needs f/u with pulm. Type 2 eliazar betes mellitus 05501396 E11.59 Discussed importance of tight glycemic control to minimize cardiovasc ular disease progressio n. Aortic aneurysm 37191314 I71.9 Stable. Aorta measures 4.3 cm on [...] healthy, low-fat, low-choles terol, diabetic diet, with job change crew member consult. Optimize BP and cholestero l control., Obtain next chest CTA 11/23/2021. Obstructiv e sleep apnea syndrome 24896695 G47.33 On BiPAP. Continue. Followed by pulmonolog ist. She had titration study. Obesity 535807625 E66.9 20 lb. weight loss recommende d over the next 2 months. Hypothyroidism 44803860 E03.9 PCP now following. Had 08/2018: free T4 0.8 normal. Obtained normal TSH 12/2020. 38573 Franco Bahhman [facility] OFFICE [address] [place] [address] 08/30/2021 12:39:30 08/30/2021 15:11:59 Dyspnea on exertion 89265465 R06.09 ALIVIA treatment and follow up Hyperlipidemia 52470870 E78.5 Needs to keep LDL less than [...] in the past. Atypical chest pain 1025 44280 R07.89 Exertional . Had catheteriz ation straight [...] GERD, or diabetic gastropare sis. Essential hypertension 98456671 I10 Seems to be well compensate d [...] bid 08/08/17. Chronic ob structive pulmonary disease 24055100 J44.9 Needs f/u with pulm. Type 2 eliazar betes mellitus 14272087 E11.59 Discussed importance of tight glycemic control to minimize cardiovasc ular disease progressio n. Aortic aneurysm 07690361 I71.9 Stable. Aorta measures 4.3 cm on [...] healthy, low-fat, low-choles terol, diabetic diet, with job change crew member consult. Optimize BP and cholestero l control., Obtain next chest CTA 11/23/2021. Obstructiv e sleep apnea syndrome 57829095 G47.33 On BiPAP. Continue. Followed by pulmonolog ist. She had titration study. Obesity 805402154 E66.9 20 lb. weight loss recommende d over the next 2 months. Hypothyroidism 98477811 E03.9 PCP now following. Had 08/2018: free T4 0.8 normal. Obtained normal TSH 12/2020. Coronary arteriosclerosis 15203066 I25.10 Mild CAD. Had catheteriz ation straight - procedure (PROC) 03/27/21: Mild CAD (mLAD 25% stenosis, ostial D1 50%). Normal left ventricula r function. Elevated left ventricula r end-diasto lic pressure. Not on ASA given mild CAD and need for Coumadin for afib. Needs to keep LDL less than 70, and HDL more than 40. Heart fail ure with normal ejection fraction 650425145 I50.33 Had catheteriz ation straight - procedure [...] doing. Obtain CMP, Mg, CBC, TSH, FLP. [id number] Franco Bahhman [facility] OFFICE [address] [place] [address] 11/01/2021 11:17:11 11/01/2021 12:34:14 Dyspnea on exertion 83499160 R06.09 ALIVIA treatment and follow up Hyperlipidemia 53535739 E78.5 Needs to keep LDL less than [...] gm bid 11/01/21. Atypical chest pain 1025 06203 R07.89 Improved. Had catheteriz ation straight - [...] ASA in setting of warfarin. Essential hypertension 20844055 I10 Patient's blood pressure is {{well-con trolled [...] bid 08/08/17. Chronic ob structive pulmonary disease 65300531 J44.9 Needs f/u with pulm. Type 2 eliazar betes mellitus 12738108 E11.59 Discussed importance of tight glycemic control to minimize cardiovasc ular disease progressio n. Aortic aneurysm 29301459 I71.9 Stable. Aorta measures 4.3 cm on [...] healthy, low-fat, low-choles terol, diabetic diet, with job change crew member consult. Optimize BP and cholestero l control., Obtain chest CTA 10/2021. Obstructiv e sleep apnea syndrome 34268980 G47.33 On BiPAP. Continue. Followed by pulmonolog ist. She had titration study. Obesity 384013850 E66.9 20 lb. weight loss recommende d over the next 2 months. Hypothyroidism 68520412 E03.9 PCP now following. Had 08/2018: free T4 0.8 normal. Obtained normal TSH 12/2020. Coronary arteriosclerosis 59865591 I25.10 Mild CAD. Had catheteriz ation straight - procedure (PROC) 03/27/21: Mild CAD (mLAD 25% stenosis, ostial D1 50%). Normal left ventricula r function. Elevated left ventricula r end-diasto lic pressure. Not on ASA given mild CAD and need for Coumadin for afib. Needs to keep LDL less than 70, and HDL more than 40. Heart fail ure with normal ejection fraction 051704229 I50.33 Had catheteriz ation straight - procedure [...] 08/30/21. Eat daily banana as is doing. [id number] Franco Bahhman [facility] OFFICE [address] [place] [address] 01/03/2022 15:43:25 01/03/2022 18:14:37 Dyspnea on exertion 34710632 R06.09 Increased. In setting of acute on [...] d over the next 2 months. Hyperlipidemia 33920362 E78.5 Needs to keep LDL less than [...] gm bid 11/01/21. Atypical chest pain 1025 06721 R07.89 Improved. Had catheteriz ation straight - [...] ASA in setting of warfarin. Essential hypertension 00889903 I10 Patient's blood pressure is {{well-con trolled [...] bid 08/08/17. Chronic ob structive pulmonary disease 42503396 J44.9 Needs f/u with pulm. Type 2 eliazar betes mellitus 51262647 E11.59 Discussed importance of tight glycemic control to minimize cardiovasc ular disease progressio n. Aortic aneurysm 61407083 I71.9 Stable. Aorta measures 4.3 cm on [...] healthy, low-fat, low-choles terol, diabetic diet, with job change crew member consult. Optimize BP and cholestero l control., Obtain chest CTA 11/2022. Obstructiv e sleep apnea syndrome 89003727 G47.33 On BiPAP. Continue. Followed by pulmonolog ist. She had titration study. Obesity 003972396 E66.9 20 lb. weight loss recommende d over the next 2 months. Hypothyroidism 81717481 E03.9 PCP now following. Had 08/2018: free T4 0.8 normal. Obtained normal TSH 12/2020. Coronary arteriosclerosis 30524723 I25.10 Mild CAD. Had catheteriz ation straight - procedure (PROC) 03/27/21: Mild CAD (mLAD 25% stenosis, ostial D1 50%). Normal left ventricula r function. Elevated left ventricula r end-diasto lic pressure. Not on ASA given mild CAD and need for Coumadin for afib. Needs to keep LDL less than 70, and HDL more than 40. Heart fail ure with normal ejection fraction 476329115 I50.33 Had catheteriz ation straight - procedure [...] leg edema, obtain LE venous Doppler at [facility]. Had 12/29/21: Cr 0.93, K 4.5, Mg 1.9 BMP, Mg 2 wks. Edema of l ower extremity 439881670 R60.0 For left posterior knee pain and leg edema, obtain LE venous Doppler at [facility]. [address] Franco Lopes [facility] OFFICE [address] [place] [address] 02/14/2022 15:05:40 02/14/2022 16:42:24 Dyspnea on exertion 55355104 R06.09 Increased. In setting of acute on [...] d over the next 2 months. Hyperlipidemia 82054160 E78.5 Needs to keep LDL less than [...] gm bid 11/01/21. Atypical chest pain 1025 43965 R07.89 Improved. Had catheteriz ation straight - [...] ASA in setting of warfarin. Essential hypertension 06140098 I10 Patient's blood pressure is {{well-con trolled [...] bid 08/08/17. Chronic ob structive pulmonary disease 04987076 J44.9 Needs f/u with pulm. Type 2 eliazar betes mellitus 23409930 E11.59 Discussed importance of tight glycemic control to minimize cardiovasc ular disease progressio n. Aortic aneurysm 66208181 I71.9 Stable. Aorta measures 4.0-4.3 cm on [...] healthy, low-fat, low-choles terol, diabetic diet, with job change crew member consult. Optimize BP and cholestero l control., Obtain chest CTA 11/2022. Obstructiv e sleep apnea syndrome 92358065 G47.33 On BiPAP. Continue. Followed by pulmonolog ist. She had titration study. Obesity 709192761 E66.9 20 lb. weight loss recommende d over the next 2 months. Hypothyroidism 45755996 E03.9 PCP now following. Had 08/2018: free T4 0.8 normal. Obtained normal TSH 12/2020. Had 10/18/21: INR 2.3, HDL 42, TG 169, LDL 69, Cr 1.07, K 4.6, Mg 1.9, TSH 2.7, hgb 13.7 Coronary arteriosclerosis 12775397 I25.10 Mild CAD. Had catheteriz ation straight - procedure (PROC) 03/27/21: Mild CAD (mLAD 25% stenosis, ostial D1 50%). Normal left ventricula r function. Elevated left ventricula r end-diasto lic pressure. Not on ASA given mild CAD and need for Coumadin for afib. Needs to keep LDL less than 70, and HDL more than 40. Heart fail ure with normal ejection fraction 324731194 I50.33 Had catheteriz ation straight - procedure [...] qd 02/14/22. Edema of l ower extremity 906353167 R60.0 Increased L>R leg since mid-December 2021. Had 02/07/22 US, echocardio gram: LV chamber size is normal. There is normal global systolic function and contractil ity. The estimated left ventricle ejection fraction is 55-60% (normal). Had US, doppler, venous 01-19-2022 : Negative left-sided venous Doppler study. Increased from Lasix 20 mg qd to 40 mg qd 02/14/22. Obtain BMP, Mg 3 wks. [id number] Franco Bahhman [facility] OFFICE [address] [place] [address] 07/18/2022 14:33:03 07/18/2022 16:16:03 Dyspnea on exertion 71654915 R06.09 Improved. In setting of acute on [...] d over the next 2 months.. Hyperlipidemia 82226708 E78.5 Needs to keep LDL less than [...] Mg, TSH, CBC. Atypical chest pain 1025 45954 R07.89 Improved. Had catheteriz ation straight - [...] ASA in setting of warfarin. Essential hypertension 56498375 I10 Patient's blood pressure is {{well-con trolled* [...] Needs repeat INR in [address] [facility], on Coumadin 2 mg alternate with 3 mg qHS. Began MgOxide 07/10/17 for Mg 1.1. On 08/08/17, Mg 1.2. Increased to magnesium oxide 400 mg bid 08/08/17. Chronic ob structive pulmonary disease 51107084 J44.9 Needs f/u with pulm. Type 2 eliazar betes mellitus 72230134 E11.59 Discussed importance of tight glycemic control to minimize cardiovasc ular disease progressio n. Aortic aneurysm 04984028 I71.9 Stable. Aorta measures 4.0-4.3 cm on [...] healthy, low-fat, low-choles terol, diabetic diet, with job change crew member consult. Optimize BP and cholestero l control., Obtain chest CTA 11/2022. Obstructiv e sleep apnea syndrome 51030951 G47.33 On BiPAP. Continue. Followed by pulmonolog ist. She had titration study. Obesity 491701902 E66.9 20 lb. weight loss recommende d over the next 2 months. Hypothyroidism 94596547 E03.9 PCP now following. Had 08/2018: free T4 0.8 normal. Obtained normal TSH 12/2020. Had 10/18/21: INR 2.3, HDL 42, TG 169, LDL 69, Cr 1.07, K 4.6, Mg 1.9, TSH 2.7, hgb 13.7 Coronary arteriosclerosis 03924143 I25.10 Mild CAD. Had catheteriz ation straight - procedure (PROC) 03/27/21: Mild CAD (mLAD 25% stenosis, ostial D1 50%). Normal left ventricula r function. Elevated left ventricula r end-diasto lic pressure. Began ASA 81 mg qd 07/18/22. Needs to keep LDL less than 70, and HDL more than 40. Heart fail ure with normal ejection fraction [id number] I50.33 Had catheteriz ation straight - procedure [...] qd 02/14/22. Edema of l ower extremity [id number] R60.0 Improved. Had 02/07/22 US, echocardio gram: LV chamber size is normal. There is normal global systolic function and contractil ity. The estimated left ventricle ejection fraction is 55-60% (normal). Had US, doppler, venous 01-19-2022 : Negative left-sided venous Doppler study. Increased from Lasix 20 mg qd to 40 mg qd 02/14/22. Obtain FLP, CMP, Mg, TSH, CBC. [address] Franco [facility] [address] [place] [address] 11/14/2022 13:57:15 11/14/2022 15:23:17 Dyspnea on exertion [id number] R06.09 Improved. In setting of acute on [...] d over the next 2 months.. Hyperlipidemia 70260128 E78.5 Needs to keep LDL less than [...] Mg, TSH, CBC. Atypical chest pain 1025 26741 R07.89 Has focal tenderness noted left anterior [...] CTA chest given aortic aneurysm. Essential hypertension [id number] I10 Patient's blood pressure is {{well-con trolled* [...] Needs repeat INR in [address] [facility], on Coumadin 2 mg qHS. Began MgOxide 07/10/17 for Mg 1.1. On 08/08/17, Mg 1.2. Increased to magnesium oxide 400 mg bid 08/08/17. Chronic ob structive pulmonary disease [id number] J44.9 Needs f/u with pulm. Type 2 eliazar betes mellitus 77263945 E11.59 Discussed importance of tight glycemic control to minimize cardiovasc ular disease progressio n. Aortic aneurysm 37336328 I71.9 Stable. Aorta measures 4.0-4.3 cm on [...] healthy, low-fat, low-choles terol, diabetic diet, with job change crew member consult. Optimize BP and cholestero l control., Obtain chest CTA 11/2022. Obstructiv e sleep apnea syndrome 05639573 G47.33 On BiPAP. Continue. Followed by pulmonolog ist. She had titration study. Obesity 269803263 E66.9 20 lb. weight loss recommende d over the next 2 months. Hypothyroidism 18209366 E03.9 PCP now following. Had 08/2018: free T4 0.8 normal. Obtained normal TSH 12/2020. Had 10/18/21: INR 2.3, HDL 42, TG 169, LDL 69, Cr 1.07, K 4.6, Mg 1.9, TSH 2.7, hgb 13.7 Coronary arteriosclerosis 37889216 I25.10 Mild CAD. Had catheteriz ation straight - procedure (PROC) 03/27/21: Mild CAD (mLAD 25% stenosis, ostial D1 50%). Normal left ventricula r function. Elevated left ventricula r end-diasto lic pressure. Began ASA 81 mg qd 07/18/22. Needs to keep LDL less than 70, and HDL more than 40. Heart fail ure with normal ejection fraction [id number] I50.33 Had catheteriz ation straight - procedure [...] qd 02/14/22. Edema of l ower extremity [id number] R60.0 Improved. Had 02/07/22 US, echocardio gram: [...] Name 11/01/2021 1 [place] Carol Gee [id number] Carol Gee 11/01/2021 2 [facility] - DOS ON OR AFTER 20 (MEDICAID REPLACEMENT - HMO) Carol Gee [id number] Carol Gee 01/03/2022 1 [place] Gee [id number] Carol Gee 01/03/2022 2 [facility] - DOS ON OR AFTER 20 (MEDICAID REPLACEMENT - HMO) Carol Gee [id number] Carol Gee 02/14/2022 1 [place] Gee [id number] Carol Gee 02/14/2022 2 [place] [facility] AID Carol Gee [id number] Carol Gee 07/18/2022 1 [place] Gee [id number] Carol Gee 07/18/2022 2 [place] Carol Gee [id number] Carol Gee 11/14/2022 1 [place] Gee [id number] Carol Gee 11/14/2022 2 [place] [facility] Carol Gee [id number] Carol Gee Notes Date Note Type Note [...] measuring 9x 16 mm. She went to [facility] on 02/05/18 for a consultation with a surgeon to see about biopsy vs surgical removal of nodule. She had PFT testing 01/29/18. She had CT scan 03/12/2018 showed nodule stable. She had CT scan 05/2018 showed nodule resolved. She was at [facility] on 11/27/17 for elevated calcium levels (13.2). [...] and has it checked at lab per [facility]. She was in [facility] in 05/22/17 because of atrial fibrillation with [...] 08/28/21 - INR : 2.1(H)PT 19.8(H) PT/INR [id number] 1.7 H PT 17.2 H 03/27/21:Na 137,K [...] Elevated left ventricular end-diastolic pressure. Franco sinha [place] - [facility] 11/01/2021 12:27:41 01/03/2022 [...] measuring 9x 16 mm. She went to [facility] on 02/05/18 for a consultation with a surgeon to see about biopsy vs surgical removal of nodule. She had PFT testing 01/29/18. She had CT scan 03/12/2018 showed nodule stable. She had CT scan 05/2018 showed nodule resolved. She was at [facility] on 11/27/17 for elevated calcium levels (13.2). [...] and has it checked at lab per [facility]. She was in [facility] in 05/22/17 because of atrial fibrillation with [...] 08/28/21 - INR : 2.1(H)PT 19.8(H) PT/INR [id number] 1.7 H PT 17.2 H 03/27/21:Na 137,K [...] Elevated left ventricular end-diastolic pressure. Franco sinha [place] [facility] 01/03/2022 18:05:38 02/14/2022 [...] measuring 9x 16 mm. She went to [facility] on 02/05/18 for a consultation with a surgeon to see about biopsy vs surgical removal of nodule. She had PFT testing 01/29/18. She had CT scan 03/12/2018 showed nodule stable. She had CT scan 05/2018 showed nodule resolved. She was at [facility] on 11/27/17 for elevated calcium levels (13.2). [...] and has it checked at lab per [facility]. She was in [facility] in 05/22/17 because of atrial fibrillation with [...] 08/28/21 - INR : 2.1(H)PT 19.8(H) PT/INR [id number] 1.7 H PT 17.2 H 03/27/21:Na 137,K [...] function. Elevated left ventricular end[place]diastolic pressure. [place] [facility] 02/14/2022 16:38:38 [...] measuring 9x 16 mm. She went to [facility] on 02/05/18 for a consultation with a surgeon to see about biopsy vs surgical removal of nodule. She had PFT testing 01/29/18. She had CT scan 03/12/2018 showed nodule stable. She had CT scan 05/2018 showed nodule resolved. She was at [facility] on 11/27/17 for elevated calcium levels (13.2). [...] and has it checked at lab per [facility]. She was in [facility] in 05/22/17 because of atrial fibrillation with [...] 08/28/21 - INR : 2.1(H)PT 19.8(H) PT/INR [id number] 1.7 H PT 17.2 H 03/27/21:Na 137,K [...] fibrillation. Low voltage, chest leads US, echocardiogram [id number] chamber size is normal. There is normal [...] setting of atrial fibrillation. US, doppler, venous [id number] Duplex Negative left-sided venous Doppler study. US, [...] Elevated left ventricular end-diastolic pressure. Franco sinha [place] - [facility] 07/18/2022 16:12:33 11/14/2022 [...] measuring 9x 16 mm. She went to [facility] on 02/05/18 for a consultation with a surgeon to see about biopsy vs surgical removal of nodule. She had PFT testing 01/29/18. She had CT scan 03/12/2018 showed nodule stable. She had CT scan 05/2018 showed nodule resolved. She was at [facility] on 11/27/17 for elevated calcium levels (13.2). [...] and has it checked at lab per [facility]. She was in [facility] in 05/22/17 because of atrial fibrillation with [...] 08/28/21 - INR : 2.1(H)PT 19.8(H) PT/INR [id number] 1.7 H PT 17.2 H 03/27/21:Na 137,K [...] fibrillation. Low voltage, chest leads US, echocardiogram [id number] chamber size is normal. There is normal [...] setting of atrial fibrillation. US, doppler, venous [id number] Duplex Negative left-sided venous Doppler study. US, [...] Elevated left ventricular end-diastolic pressure. Franco sinha [place] - [facility] 11/14/2022 15:16:36 OBGyn Episode No OBEpisode recorded.
--- OUTSIDE RECORDS SUMMARY | 2024-08-23 17:14 | XMS_ITS ---
Author Organization [facility] Address [address] [place] [address] Care Team Providers Care Shelter Case Manager Name Role Phone Fannie Campuzano Primary Care [...] CSSR Interpretation and Follow UP Plan, call [phone]- (she is having trouble hearing today) Medications [...] Nonsmoker Encounters Encounter Location Date Provider Diagnosis [address] [address] 07/21/2024 Arif Habib Schizoaffective diso rder F25.9 [...] Notes * Hermila GEEsDOB:1955 (68 yo F)Acc No.[id number]:07/21/2024 Patient: Carol MAY Provider: Miguel Campuzano :1955 A ge:68 Y S ex:Female Date:07/21/2024 Address:[address] [place] [address], [place] [id number] Subjective: * Chief Complaints: * P sych F/UDiscuss medsCSSR Interpretation and Follow UP PlanCall [phone]- (she is having trouble hearing today) * [...] I nterpretation M ild Depression. S creening: [place] Suicide Severity Rating Scale (LF) D o [...] session today Reports she has been in [facility] since beginning of March 2024. Pt was in medical hospitaland her Risperdal, Seroquel, Buspar were stopped. Reports feeling depressed because being there . Pt reports she is doing alright. Medications are working. Denies side effects. Sleep is alright. Denies hallucination or delusions. Appetite is alright. Denies SI/HI. D enies manic or hypo manic symptoms. Anxiety is under control. (Pt was inpatient at [facility] total for 22 days .Pt was first on medical floor because she had covid with no symptoms. Pt was paranoid, delusional. She thought she had no insurance, no money, no food and she stopped takin medicines at home and taking care of self. She started declining after she moved to [employer] [facility] apartment alone. Pt had he mdications adjusted in hospital and also Risperdal was added. She showed significant improvement with Risperdal.). [facility]. 66 year old sister who on 05/09/21. 93 year old Aunt in August 2021. Her Parents and all siblings are now. (all 5 brothers & 2 sisters are ). Follows Wraparound Facilitator for sleep apnea. On CPAP. Uses BiPAP. [...] , 74- COPD. S iblings: 28 brother- - AMA. 2 brother(s) , 1 sister(s) . 1 son(s) , 2 daughter(s) - healthy. . * Social History: P rimary Social History: L iving Arrangement L iving Arrangement: D ependent Living, L iving with: O ther: Lives at [facility], I s this a supportive environment? [...] * Follow Up: 4 Weeks * * OM MILLER Sign off status: Completed true * Provider: Miguel Campuzano Date: 0 07/21/2024 Generated for Delilah castle/Vinicio/Hasmukh on: 0 08/23/2024 05:13 PM CUSTOM MILLER History and Physical Notes * HPI (History of Present Illness) Category Sub-Category Detail Notes Category Not es Depression Screening PHQ9 PHQ-2 (2015 Edition) Little interest or pleasure in doing things?: Not at all Phone session today Reports she has been in [facility] since beginning of March 2024. Pt was in medical hospitaland her Risperdal, Seroquel, Buspar were stopped. Reports feeling depressed because being there . Pt reports she is doing alright. Medications are working. Denies side effects. Sleep is alright. Denies hallucination or delusions. Appetite is alright. Denies SI/HI. Denies manic or hypo manic symptoms. Anxiety is under control. (Pt was inpatient at [facility] total for 22 days .Pt was first on medical floor because she had covid with no symptoms. Pt was paranoid, delusional. She thought she had no insurance, no money, no food and she stopped takin medicines at home and taking care of self. She started declining after she moved to [employer] [facility] apartment alone. Pt had he mdications adjusted in hospital and also Risperdal was added. She showed significant improvement with Risperdal.). [facility]. 66 year old sister who on 05/09/21. 93 year old Aunt in August 2021. Her Parents and all siblings are now. (all 5 brothers & 2 sisters are ). Follows Wraparound Facilitator for sleep apnea. On CPAP. Uses BiPAP. [...] Total Score: 5 Interpretation: Mild Depression Screening [place] Suicide Sev erity Rating Scale (LF) Do [...]
--- OUTSIDE RECORDS SUMMARY | 2024-08-23 17:14 | XMS_ITS | Encounter Summary ---
Author Organization [facility] Address [address] [place] [address] Care Team Providers Care Youth Worker Name Role Phone John Gomez DO Primary Care Provider [phone] Reason for Visit * Reason Onset Date Comments MEDICATION REFILL 07/20/2022 Encounter Details Date Type Department Care Team (Late st Contact Info) Description 07/20/2022 Refill [facility] [address] [place] [address], [place] [address] Pastora Roy PA [address] [place] [address] [address] [place] [address] MEDICATION REFILL Social History Tobacco [...] psoriasis documented in this encounter Care Teams Youth Worker Relationship Specialty Start Date End Date John Gomez DO [address] [place] [address] PCP - General 04/11/21 documented as of this encounter
--- OUTSIDE RECORDS SUMMARY | 2024-08-23 17:14 | XMS_ITS | Referral Summary ---
Author Organization [facility] Address [address] [facility] [place] [address] Care Team Providers Care Computer Systems Security Administrator Name Role Phone PatriciaJohn andrade DO Primary Care Provider [phone] Source Comments [facility],non-owned Affiliates and Associated Physician Practices is amultiple site organization consisting of ambulatory clinics and hospital sitesin [place], [place], [place] and [place]. This disclosure is being madepursuant to the Care Everywhere program and may not contain all information available regarding this patient. Last updated 18.[facility] Allergies Active Allergy Reactions Criticality Noted Date [...] (one) tablet TID 09/13/2016 Active FREESTYLE LANCETS [facility] 09/20/2016 Active blood glucose (FREESTYLE LITE STRIPS) [...] pen needle (NOVOFINE) 32G X 6 MM [facility] 08/13/2016 Active levothyroxine (SYNTHROID) 112 MCG tablet [...] METABOLIC PANEL Routine 06/19/2022 3:03 PM SUPERVISOR BAKERY SANITATION Other senior care (current) drug therapy HEPATITIS C AB W/RFLX TO HCV RNA QN PCR 03/04/2020 9:54 AM CDT from Last 3 Months or Most Recently Relevant to Health Maintenance Results * (ABNORMAL) COMPREHENSIVE METABOLIC PANEL (06/19/2022 3:03 PM SUPERVISOR [employer]AK[employer]IT[employer]) Glucose 102(H) 65 - 99 mg/dL [facility] [...] 29 U/L [facility] Comment: Test Performed at: [facility] [address] [address] [place] [address] ISABELLA RODRIGUEZ DO,MPH Blood BLOOD SPECIMEN / Unknown 06/19/2022 3:03 PM SUPERVISOR [employer] 06/19/2022 3:03 PM SUPERVISOR BAKERY SANITATION [facility] - CHEMISTRY ABHISHEK TREVIÑO [facility] [address] [place] [address] * HEPATITIS C AB W/RFLX TO HCV RNA QN PCR (03/04/2020 9:54 AM CDT) Hepatitis C Antibody NON-REACTI VE NON-REACT CASTRO [facility] Signal to Cut-Off 0.03 <1.00 [facility] Comment: HCV antibody was non-reactive. There is no laboratory evidence of HCV infection. In most cases, no further action is required. However, if recent HCV exposure is suspected, a test for HCV RNA (test code 51177) is suggested. For additional information please refer to http://education.KONUX/faq/KCW69f9 (This link is being provided for informational/ educational purposes only.) Test Performed at: [facility] [id number] [employer] [employer] [facility] [address] ISABELLA RODRIGUEZ DO,MPH 03/04/2020 9:54 AM CDT 03/04/2020 9:59 AM CDT Stephy Fitzpatrick MD LAB - CHEMISTRY ABHISHEK TREVIÑO [facility] [address] [place] [address] from Last 3 Months or Most Recently Relevant to Health Maintenance Care Teams Computer Systems Security Administrator Relationship Specialty Start Date End Date John Gomez DO [address] [place] [address] PCP - General 04/11/21
--- OUTSIDE RECORDS SUMMARY | 2024-08-23 17:14 | XMS_ITS | Clinical Summary ---
Author Organization [facility] [employer] Address [address] [facility] [place] [address] Care Team Providers Care Family Life Counselor Name Role Phone PatriciaJohn andrade DO Primary Care Provider [phone] Source Comments [facility] [employer],non-owned Affiliates and Associated Physician Practices is amultiple site organization consisting of ambulatory clinics and hospital sitesin [place], [place], [place] and [place]. This disclosure is being madepursuant to the Care Everywhere program and may not contain all information available regarding this patient. Last updated 18.[facility] [employer] Allergies Active Allergy Reactions Criticality Noted Date [...] (one) tablet TID 09/13/2016 Active FREESTYLE LANC[place] [facility] 09/20/2016 Active blood glucose [...] pen needle (NOVOFINE) 32G X 6 MM [facility] 08/13/2016 Active levothyroxine (SYNTHROID) [...] Primary osteoarthritis involving multiple joints 03/07/2017 Other jail (current) drug therapy 7 Other psoriasis 10/14/2016 [...] COMPREHENSIVE METABOLIC PANEL Routine 06/19/2022 3:03 PM BOBBIN DISKER Other extermination supervisor (current) drug therapy HEPATITIS C AB W/RFLX TO HCV RNA QN PCR 03/04/2020 9:54 AM CDT from Last 3 Months or Most Recently Relevant to Health Maintenance Results * (ABNORMAL) COMPREHENSIVE METABOLIC PANEL (06/19/2022 3:03 PM BOBBIN DISKER) Glucose 102(H) 65 - 99 mg/dL [facility] [...] 29 U/L [facility] Comment: Test Performed at: [facility] [address] [facility] [place] [address] ISABELLA RODRIGUEZ DO,MPH Blood BLOOD SPECIMEN / Unknown 06/19/2022 3:03 PM BOBBIN DISKER 06/19/2022 3:03 PM BOBBIN DISKER [facility] - CHEMISTRY ABHISHEK TREVIÑO Performing Organization Address [facility] Co de Phone Number [employer] [address] [place] [address] * HEPATITIS C AB W/RFLX TO HCV RNA QN PCR (03/04/2020 9:54 AM CDT) Hepatitis C Antibody NON-REACTI VE NON-REACT CASTRO [facility] Signal to Cut-Off 0.03 <1.00 [facility] Comment: HCV antibody was non-reactive. There is no laboratory evidence of HCV infection. In most cases, no further action is required. However, if recent HCV exposure is suspected, a test for HCV RNA (test code 45652) is suggested. For additional information please refer to http://education.Telera/faq/HMW20c0 (This link is being provided for informational/ educational purposes only.) Test Performed at: [facility] [address] [place] [address] ISABELLA RODRIGUEZ DO,MPH 03/04/2020 9:54 AM CDT 03/04/2020 9:59 AM CDT Stephy Fitzpatrick MD LAB - CHEMISTRY ABHISHEK TREVIÑO Performing Organization Address [facility] Co de Phone Number [employer] [address] [place] [address] from Last 3 Months or Most Recently Relevant to Health Maintenance Care Teams Family Life Counselor Relationship Specialty Start Date End Date John Gomez DO [address] [place] [address] PCP - General 04/11/21
[2024-08-24] VITALS (8 sets, daily range): BP systolic 118–145; BP diastolic 70–74; PULSE 77–83; RESP 14–17; TEMP 36.5–36.7; O2SAT 86–100
--- NOTE | 2024-08-24 01:28 | ECG_ITS ---
Test Date: 2024-08-24 01:42:29 Measurements Intervals [place] Rate: 71 P: 0 [place]: 0 QRS: 34 QRSD: 94 T: 22 QT: 394 QTc: 430 Interpretive Statements ATRIAL FIBRILLATION BORDERLINE ST-T WAVE ABNORMALITY- INFERIOR LEADS ABNORMAL ECG Compared to ECG 07/10/2024 14:28:54 NO SIGNIFICANT CHANGE Electronically Signed On 08-24-2024 06:48:47 SANITARY CHEMIST by Len Lyons D.O.
--- NOTE | 2024-08-24 01:44 | PC.NURSE ---
Daughter at bedside states that she thinks patient has a UTI. Per daughter patient has chronic UTIs and acts a little out of it .
[2024-08-24 01:48] LABS: Basophils Percent Auto 0.4 % (0.2-1.2); Eosinophils Percent Auto 0.2 % (0-4.4); Hematocrit 26.9 % (37.0-47.0); Hemoglobin 8.2 g/dL (12.0-15.0); Immature Granulocyte Absolute 0.02 K/mm3 (0.00-0.031); Immature Granulocyte Percent A 0.4 % (0-0.5); Lymphocytes Absolute Auto 1.44 K/mm3 (0.9-3.2); Lymphocytes Percent Auto 27.4 % (18.3-44.2); Mean Corpuscular HGB Conc 30.5 g/dl (32-36); Mean Corpuscular Hemoglobin 23.2 pg (26-34); Mean Platelet Volume 10.1 fl (7.4-10.4); Monocytes Absolute Auto 0.7 K/mm3 (0.1-0.6); Monocytes Percent Auto 12.9 % (2.6-8.5); Neutrophils Absolute Auto 3.1 K/mm3 (1.3-6.7); Neutrophils Percent Auto 58.7 % (45.5-73.1); Platelet Count Result 139 k/mm3 (150-375); Red Blood Count 3.54 M/mm3 (4.2-5.4); Red Cell Distribution Width 19.5 % (11.5-14.5); White Blood Count 5.3 K/mm3 (4.5-10.0)
[2024-08-24 02:02] LABS: Alanine Aminotransferase 14 U/L (6-35); Albumin Level 3.3 g/dL (3.5-5.1); Alkaline Phosphatase 117 U/L (38-126); Anion Gap 7 mmol/L (4-12); Aspartate Amino Transferase 25 U/L (14-36); Bilirubin,Total 0.4 mg/dL (0.2-1.3); Blood Urea Nitrogen 23 mg/dL (7-17); Calcium 9.6 mg/dL (8.4-10.2); Carbon Dioxide 28 mmol/L (22-30); Chloride 100 mmol/L (98-107); Estimated CRCL calculation 54 ml/min; Estimated Glomerular Filt Rate 52; Glucose 148 mg/dL (65-110); Potassium 4.1 mmol/L (3.4-5.0); Sodium 135 mmol/L (137-145)
[2024-08-24 02:04] LABS: Add Urine Microscopic? YES; Appearance Urine Turbid (Clear); Bacteria Urine 4+ /hpf; Bilirubin Urine Negative (Negative); Blood Urine 2+ (Negative); Calcium Oxalate Crystals Urine Present /hpf; Color Urine Yellow (Yellow); Glucose Urine UA Negative (Negative); Ketones Urine Trace mg/dL (Negative); Leukocyte Esterase Ur 2+ LEU/UL (Negative); Need Manual Microscopic Reviewed; Nitrate Urine Positive (Negative); Protein Urine 1+ mg/dL (Negative); RBC Urine 0-2 /hpf (0-2); Specific Grav Ur 1.024 (1.001-1.035); Squamous Epithelial Cell Urine Occasional /hpf (Few); Urobilinogen Urine 0.2 mg/dL (<2.0); WBC Urine >100 /hpf (0-3); pH Urine 5.5 (5.0-9.0)
--- OUTSIDE RECORDS SUMMARY | 2024-08-24 02:12 | XMS_ITS | Encounter Summary ---
Author Organization [facility] Address [address] [place] [address] Care Team Providers Care Steel Box Toe Inserter Name Role Phone John Gomez DO Primary Care Provider [phone] Reason for Visit * Reason Onset Date Comments MEDICATION REFILL 07/20/2022 Encounter Details Date Type Department Care Team (Late st Contact Info) Description 07/20/2022 Refill [facility] [address] [place] [address], [place] [address] Pastora Roy PA [address] [place] [address] [address] [place] [address] MEDICATION REFILL Social History Tobacco [...] psoriasis documented in this encounter Care Teams Steel Box Toe Inserter Relationship Specialty Start Date End Date John Gomez DO [address] [place] [address] PCP - General 04/11/21 documented as of this encounter
--- OUTSIDE RECORDS SUMMARY | 2024-08-24 02:12 | XMS_ITS | Clinical Summary ---
Author Organization [facility] Address [address] [facility] [place] [address] Care Team Providers Care Loop Puller Name Role Phone Lane Ring MD Primary [...] daily as needed . 7 Active Insulin [place], Disposable, (NOVOFINE 32) 32 gauge x 1/4 [...] SCREENING 2021 INFLUENZA VACCINE (#1) 2024 Insurance [facility] MEDICAID Care Teams Loop Puller Relationship Specialty Start Date End Date Lane Ring MD [address] [place] [address] PCP - General Internal Medicine 12/17/17
--- OUTSIDE RECORDS SUMMARY | 2024-08-24 02:12 | XMS_ITS ---
Author Organization [facility] Address [address] [place] [address] Care Team Providers Care Acting Teacher Name Role Phone Fannie Campuzano Primary Care [...] Female Encounters Encounter Location Date Provider Diagnosis [address] [address] 07/27/2024 Fannie Campuzano Schizoaffective diso rder F25.9 [...] Notes * Lana GEE:1955 (68 yo F)Acc No.[id number]:07/27/2024 Patient: Carol MAY :1955 A ge:68 Y S ex:Female Address:[address] [place] [address], [place] [address] * Refills Refill Lexapro Tablet, 10 MG, [...] Date: Generated for Delilah castle/Vinicio/Martínezsmitting on: 0 08/24/2024 02:11 AM SAP SECURITY CONSULTANT
--- OUTSIDE RECORDS SUMMARY | 2024-08-24 02:12 | XMS_ITS | Clinical Summary ---
Author Organization [facility] Address [address] [place] [address] Care Team Providers Care Toll Line Inspector Name Role Phone PatriciaWilder andradee Cassia RODRIGUEZ Primary Care Provider [phone] [facility],non-owned Affiliates and Associated Physician Practices is amultiple site organization consisting of ambulatory clinics and hospital sitesin [place], [place], [place] and [place]. This disclosure is being madepursuant to the Care Everywhere program and may not contain all information available regarding this patient. Last updated 18.[facility] Allergies Active Allergy Reactions Criticality Noted Date [...] TID 09/13/2016 Active [place]YLE [place] [facility] [place] Active blood glucose (FREESTYLE LITE STRIPS) [...] (NOVOFINE) 32G X 6 MM [facility] 08/13/2016 Active levothyroxine (SYNTHROID) 112 MCG tablet [...] Primary osteoarthritis involving multiple joints 03/07/2017 Other [facility] (current) drug therapy 7 Other psoriasis 10/14/2016 [...] COMPREHENSIVE METABOLIC PANEL Routine 06/19/2022 3:03 PM SENIOR TELLER Other lobsterman (current) drug therapy HEPATITIS C AB W/RFLX TO HCV RNA QN PCR 03/04/2020 9:54 AM CDT from Last 3 Months or Most Recently Relevant to Health Maintenance Results * (ABNORMAL) COMPREHENSIVE METABOLIC PANEL (06/19/2022 3:03 PM SENIOR TELLER) Glucose 102(H) 65 - 99 mg/dL [facility] [...] 29 U/L [facility] Comment: Test Performed at: [facility] [id number] [facility] [place] [address] ISABELLA RODRIGUEZ DO,MPH Blood BLOOD SPECIMEN / Unknown 06/19/2022 3:03 PM SENIOR TELLER 06/19/2022 3:03 PM SENIOR TELLER [facility] - CHEMISTRY ABHISHEK TREVIÑO Performing Organization Address [facility] Co de Phone Number [facility] [phone] [place] [address] * HEPATITIS C AB W/RFLX TO HCV RNA QN PCR (03/04/2020 9:54 AM CDT) Hepatitis C Antibody NON-REACTI VE NON-REACT CASTRO [facility] Signal to Cut-Off 0.03 <1.00 [facility] Comment: HCV antibody was non-reactive. There is no laboratory evidence of HCV infection. In most cases, no further action is required. However, if recent HCV exposure is suspected, a test for HCV RNA (test code 33591) is suggested. For additional information please refer to http://education.Bioclones/faq/LVY49i8 (This link is being provided for informational/ educational purposes only.) Test Performed at: [facility] [id number] [facility] [address] ISABELLA RODRIGUEZ DO,MPH 03/04/2020 9:54 AM CDT 03/04/2020 9:59 AM CDT Stephy Fitzpatrick MD LAB - CHEMISTRY ABHISHEK TREVIÑO Performing Organization Address [facility] Co de Phone Number [facility] [phone] [place] [address] from Last 3 Months or Most Recently Relevant to Health Maintenance Care Teams Toll Line Inspector Relationship Specialty Start Date End Date John Gomez DO [address] [place] [address] PCP - General 04/11/21
--- OUTSIDE RECORDS SUMMARY | 2024-08-24 02:12 | XMS_ITS | Referral Summary ---
Author Organization [facility] Address [address] [place] [address] Care Team Providers Care Butcher Helper Name Role Phone PatriciaWilder andradee Cassia RODRIGUEZ Primary Care Provider [phone] Source Comments [facility],non-owned Affiliates and Associated Physician Practices is amultiple site organization consisting of ambulatory clinics and hospital sitesin [place], [place], [place] and [place]. This disclosure is being madepursuant to the Care Everywhere program and may not contain all information available regarding this patient. Last updated 18.[facility] Allergies Active Allergy Reactions Criticality Noted Date [...] (one) tablet TID 09/13/2016 Active FREESTYLE LANCETS [facility] 09/20/2016 Active blood glucose (FREESTYLE LITE STRIPS) [...] pen needle (NOVOFINE) 32G X 6 MM [facility] 08/13/2016 Active levothyroxine (SYNTHROID) 112 MCG tablet [...] osteoarthritis involving multiple joints 03/07/2017 Other senior living (current) drug therapy 7 Other psoriasis 10/14/2016 [...] COMPREHENSIVE METABOLIC PANEL Routine 06/19/2022 3:03 PM SKIDDER LOADER Other senior living (current) drug therapy HEPATITIS C AB W/RFLX TO HCV RNA QN PCR 03/04/2020 9:54 AM CDT from Last 3 Months or Most Recently Relevant to Health Maintenance Results * (ABNORMAL) COMPREHENSIVE METABOLIC PANEL (06/19/2022 3:03 PM SKIDDER LOADER) Glucose 102(H) 65 - 99 mg/dL [facility] [...] 29 U/L [facility] Comment: Test Performed at: [facility] [id number] [address] ISABELLA RODRIGUEZ DO,MPH Blood BLOOD SPECIMEN / Unknown 06/19/2022 3:03 PM SKIDDER LOADER 06/19/2022 3:03 PM SKIDDER LOADER [facility] - CHEMISTRY ABHISHEK TREVIÑO [facility] [address] [place] [address] * HEPATITIS C AB W/RFLX TO HCV RNA QN PCR (03/04/2020 9:54 AM CDT) Hepatitis C Antibody NON-REACTI VE NON-REACT CASTRO [facility] Signal to Cut-Off 0.03 <1.00 [facility] Comment: HCV antibody was non-reactive. There is no laboratory evidence of HCV infection. In most cases, no further action is required. However, if recent HCV exposure is suspected, a test for HCV RNA (test code 55639) is suggested. For additional information please refer to http://education.Portfolia/faq/FMV87s6 (This link is being provided for informational/ educational purposes only.) Test Performed at: [facility] [id number] [facility] [address] ISABELLA RODRIGUEZ DO,MPH 03/04/2020 9:54 AM CDT 03/04/2020 9:59 AM CDT Stephy Fitzpatrick MD LAB - CHEMISTRY ABHISHEK TREVIÑO [facility] [address] [place] [address] from Last 3 Months or Most Recently Relevant to Health Maintenance Care Teams Butcher Helper Relationship Specialty Start Date End Date John Gomez DO [address] [place] [address] PCP - General 04/11/21
--- OUTSIDE RECORDS SUMMARY | 2024-08-24 02:12 | XMS_ITS | Clinical Summary ---
Author Organization [facility] Address [address] [place] [address] Care Team Providers Care Surgery Technician Name Role Phone Unavailable Primary Care Provider [...] patient's age to complete this topic Insurance [place]
--- OUTSIDE RECORDS SUMMARY | 2024-08-24 02:12 | XMS_ITS | Encounter Summary ---
Author Organization [facility] Address [address] [place] [address] Care Team Providers Care Project Controller Name Role Phone John Gomez DO Primary Care Provider [phone] Encounter Details Date Type Department Care Team (Late st Contact Info) Description 07/18/2021 Telephone [facility] [address] [facility] [place] [address] Pastora Roy PA [address] [facility] [address] [place] [address] Social History Tobacco Use Types [...] She is up to date on labs ON PAPER COATING MACHINE SETTER * Telephone Encounter - Pastora Roy PA - 07/18/2021 2:46 PM CST Patient called for refill cosentyx Sent to ousmane /anya She has follow up in August She is up to date on labs ON PAPER COATING MACHINE SETTER documented in this encounter Plan of Treatment Not on file documented as of this encounter Visit Diagnoses Diagnosis Other psoriasis documented in this encounter Care Teams Project Controller Relationship Specialty Start Date End Date John Gomez DO [address] [place] [address] PCP - General 04/11/21 documented as of this encounter
--- OUTSIDE RECORDS SUMMARY | 2024-08-24 02:12 | XMS_ITS ---
Author Organization [facility] Address [address] [place] [address] Care Team Providers Care Oil And Gas Exploration Technician Name Role Phone Fannie Campuzano Primary Care Provider REASON FOR VISIT update and question Social History Sex Assigned At : Social History Observation Description Sex Assigned At Female Encounters Encounter Location Date Provider Diagnosis [address] [place] [address] 07/14/2024 [facility] Plan Of Treatment No Information Progress Notes * Hermila GEEsDOB:1955 (68 yo F)Acc No.[id number]:07/14/2024 Patient: Carol MAY :1955 A ge:68 Y S ex:Female Address:[address] [place] [address], [address], [place], [address] * true * Date: Generated for Garyi corrine/Vinicio/eTransmitting on: 0 08/24/2024 02:12 AM SLOT EDITOR
--- OUTSIDE RECORDS SUMMARY | 2024-08-24 02:12 | XMS_ITS | Patient Health Summary ---
Author Organization [facility] Address [address] [place] [address] Care Team Providers Care Engraver Tire Mold Name Role Phone Patricia John Cassia RORDIGUEZ Primary Care Provider Note from [facility],non-owned Affiliates and Associated Physician Practices is amultiple site organization consisting of ambulatory clinics and hospital sitesin [place], [place], [place] and [place]. This disclosure is being madepursuant to the Care Everywhere program and may not contain all information available regarding this patient. Last updated 18.[facility] Allergies * Cefuroxime(Itching) -Low Criticality * [...] pen needle (NOVOFINE) 32G X 6 MM [facility](Started 08/13/2016) * levothyroxine (SYNTHROID) 112 MCG tablet(Started [...] Primary osteoarthritis involving multiple joints 03/07/2017 Other fdc (current) drug therapy 7 Other psoriasis 10/14/2016 [...] COMPREHENSIVE METABOLIC PANEL(Performed 06/19/2022) Performed for Other intermodal dispatcher (current) drug therapy * CBC W AUTO DIFFERENTIAL(Performed 06/19/2022) Performed for Other intermodal dispatcher (current) drug therapy * QUANTIFERON-TB GOLD PLUS 1-TUBE(Performed 05/31/2021) * CBC W AUTO DIFFERENTIAL(Performed 05/31/2021) Performed for Other intermodal dispatcher (current) drug therapy * COMPREHENSIVE METABOLIC PANEL(Performed 05/31/2021) Performed for Other fdc (current) drug therapy * IMAGING/RADIOLOGY/XRAY RESULTS ORDER(Performed [...] 12/14/2016) * COMPREHENSIVE METABOLIC PANEL(Performed 12/14/2016) * SENIOR TECH MANUFACTURING ENGINEERING ANTIBODY(Performed 12/14/2016) * JIMENES (SM) ANTIBODY JAIME(Performed [...] QUANTIFERON-TB GOLD PLUS 1-TUBE (06/19/2022 3:03 PM DIGESTER COOK) Only the most recent of3 resultswithin the [...] T-lymphocytes. For additional information, please refer to https://education.StatSims.com/faq/NNJ241 (This link is being provided for informational/ educational purposes only.) Test Performed at: [facility] [address] [place] [address] ISABELLA RODRIGUEZ DO,MPH 06/19/2022 3:03 PM DIGESTER COOK 06/19/2022 3:03 PM DIGESTER COOK [facility] - CHEMISTRY ABHISHEK TREVIÑO [facility] Organization Address City/State/ZIP Co de Phone Number [facility] [address] [place] [address] * CBC WITH DIFFERENTIAL (06/19/2022 3:03 PM DIGESTER COOK) Only the most recent of9 resultswithin the [...] 0.5 % [facility] Comment: Test Performed at: [facility] [address] [place] [address] ISABELLA RODRIGUEZ DO,MPH Blood BLOOD SPECIMEN / Unknown 06/19/2022 3:03 PM DIGESTER COOK 06/19/2022 3:03 PM DIGESTER COOK [facility] - HEMATOLOGY ORD ERABLES [facility] [address] [place] [address] * (ABNORMAL) COMPREHENSIVE METABOLIC PANEL (06/19/2022 3:03 PM DIGESTER COOK) Only the most recent of9 resultswithin the [...] 29 U/L [facility] Comment: Test Performed at: [facility] [address] [place] [address] ISABELLA RODRIGUEZ DO,MPH Blood BLOOD SPECIMEN / Unknown 06/19/2022 3:03 PM DIGESTER COOK 06/19/2022 3:03 PM DIGESTER COOK [facility] - CHEMISTRY ABHISHEK TREVIÑO [facility] Organization Address City/State/ZIP Co de Phone Number [facility] [address] [place] [address] * IMAGING RADIOLOGY XRAY RESULTS ORDER (03/04/2020 [...] a test for HCV RNA (test code 99604) is suggested. For additional information please refer to http://education.[employer]attis [employer]ce[employer]icals.StowThat/faq/HRB31v4 (This link is being provided for informational/ educational purposes only.) Test Performed at: [facility] [address] [place] [address] ISABELLA RODRIGUEZ DO,MPH 03/04/2020 9:54 AM CDT 03/04/2020 9:59 AM CDT Stephy Fitzpatrick MD LAB - CHEMISTRY ABHISHEK TREVIÑO Performing Organization Address [facility] Co de Phone Number [facility] [address] [place] [address] * HEPATITIS B CORE ANTIBODY REFLEX IGM (03/04/2020 9:54 AM CDT) Pathologist [facility] Hepatitis B Core Virus Antibody Total NON-REACTI VE NON-REACT CASTRO [facility] Comment: Test Performed at: [facility] [address] ISABELLA RODRIGUEZ DO,MPH 03/04/2020 9:54 AM CDT 03/04/2020 9:59 AM CDT Stephy Fitzpatrick MD LAB - SEROLOGY ORDER MARK Performing Organization Address [facility] Co de Phone Number [facility] [id number] [place] [address] * (ABNORMAL) HEPATITIS B SURFACE ANTIBODY QUANT (03/04/2020 9:54 AM CDT) Pathologist [facility] Hepatitis B Virus Surface Antibody Quantitative <5(L) > OR = 10 mIU/mL [facility] Comment: Patient does not have immunity to hepatitis B virus. For additional information, please refer to http://education.StatSims.com/faq/WLZ830 (This link is being provided for informational/ educational purposes only). Test Performed at: [facility] [address] ISABELLA RODRIGUEZ DO,MPH 03/04/2020 9:54 AM CDT 03/04/2020 9:59 AM CDT Stephy Fitzpatrick MD LAB - SEROLOGY ORDER MARK Performing Organization Address [facility] Co de Phone Number [facility] [address] [place] [address] * RHEUMATOID FACTOR BLOOD QUANTITATIVE (03/04/2020 9:54 AM CDT) Only the most recent of2 resultswithin the time period is included. [facility] Rheumatoid Factor <14 <14 IU/mL [facility] Comment: Test Performed at: [facility] [address] ISABELLA RODRIGUEZ DO,MPH 03/04/2020 9:54 AM CDT 03/04/2020 9:59 AM CDT Stephy Fitzpatrick MD LAB - CHEMISTRY ABHISHEK TREVIÑO Performing Organization Address [facility] Co de Phone Number [facility] [address] [place] [address] * (ABNORMAL) C-REACTIVE PROTEIN (03/04/2020 9:54 AM CDT) Only the most recent of2 resultswithin the time period is included. C-Reactive Protein 20.4(H) <8.0 mg/L [facility] Comment: Test Performed at: [facility] [address] [place] [address] ISABELLA RODRIGUEZ DO,MPH 03/04/2020 9:54 AM CDT 03/04/2020 9:59 AM CDT Stephy Fitzpatrick MD LAB - CHEMISTRY ABHISHEK TREVIÑO Performing Organization Address [facility] Co de Phone Number [facility] [address] [place] [address] * HLA TYPING B27 (03/04/2020 9:54 AM CDT) Pathologist [facility] HLA-B27 Antigen NEGATIVE NEGATIVE [facility] Comment: Test Performed at: [facility] [address] [place] [address] AGUS WEIR MD,PHD,FÉLIX 03/04/2020 9:54 AM CDT 03/04/2020 9:59 AM CDT Stephy Fitzpatrick MD LAB - CHEMISTRY ABHISHEK TREVIÑO Performing Organization Address City/[facility] Co de Phone Number [facility] [address] [place] [address] * VITAMIN D 25-HYDROXY (03/04/2020 9:54 AM [...] D, (D2,D3), LC/MS/MS is recommended: order code 35724 (patients >2yrs). See Note 1 Note 1 For additional information, please refer to http://education.SEElogix/faq/DES352 (This link is being provided for informational/ educational purposes only.) Test Performed at: [employer] [place] [address] ISABELLA RODRIGUEZ DO,MPH 03/04/2020 9:54 AM CDT 03/04/2020 9:59 AM CDT Stephy Fitzpatrick MD LAB - CHEMISTRY ABHISHEK TREVIÑO Performing Organization Address [facility] de Phone Number [address] [address] * CYCLIC CITRULLINATED PEPTIDE(CCP) AB IGG (03/04/2020 9:54 AM CDT) Only the most recent of2 resultswithin the time period is included. [facility] Cyclic Citrullinated Peptide Antibody IgG <16 UNITS [facility] Comment: Reference Range Negative: <20 Weak Positive: 20-39 Moderate Positive: 40-59 Strong Positive: >59 Test Performed at: [place] [address] ISABELLA RODRIGUEZ DO,MPH 03/04/2020 9:54 AM CDT 03/04/2020 9:59 AM CDT Stephy Fitzpatrick MD LAB - CHEMISTRY ABHISHEK TREVIÑO Performing Organization Address [facility] de Phone Number [address] [address] * (ABNORMAL) ERYTHROCYTE SEDIMENTATION RATE (03/04/2020 9:54 AM CDT) Only the most recent of2 resultswithin the time period is included. Erythrocyte Sedimentation Rate Westergren 34(H) < OR = 30 mm/h [facility] Comment: Test Performed at: [facility] [address] RODOLFO NAM MD 03/04/2020 9:54 AM CDT 03/04/2020 9:59 AM CDT Stephy Fitzpatrick MD LAB - HEMATOLOGY ORD ERABLES [address] [address] * (ABNORMAL) URINALYSIS REFLEX TO MICROSCOPIC NO CULTURE (05/09/2017 1:59 PM DIGESTER COOK) Only the most recent of3 resultswithin the time period is included. Color UA YELLOW YELLOW [facility] ([facility]) Appearance CLOUDY(A) CLEAR [facility] ([facility]) Specific [place] UA 1.021 1.001 - 1.035 [facility] ([facility]) [...] /LPF [facility] ([facility]) Comment: Test Performed at: [facility] [address] [place] [address] ISABELLA RODRIGUEZ DO,MPH 05/09/2017 1:59 PM DIGESTER COOK 05/09/2017 2:00 PM DIGESTER COOK Yanni Song MD LAB - URIN ALYSIS ORDERABLES [facility] ([facility]) * (ABNORMAL) URINALYSIS W/MICROSCOPIC REFLEX TO CULTURE (03/18/2017 1:48 PM CDT) Only the most recent of2 resultswithin the time period is included. Color UA YELLOW YELLOW [facility] ([facility]) Appearance CLOUDY(A) CLEAR [facility] ([facility]) Specific [place] UA 1.021 1.001 - 1.035 [facility] ([facility]) pH Urine 5.5 5.0 - 8.0 [facility] ([facility]) Glucose UA NEGATIVE NEGATIVE [facility] ([facility]) Bilirubin UA NEGATIVE NEGATIVE [facility] ([facility]) Ketone UA NEGATIVE NEGATIVE [facility] ([facility]) Blood UA 1+(A) NEGATIVE [facility] ([facility]) Protein UA 1+(A) NEGATIVE [facility] ([facility]) Nitrite UA POSITIVE(A) NEGATIVE [facility] ([facility]) Leukocyte Esterase 3+(A) NEGATIVE [facility] ([facility]) WBC Urine PACKED(A) < OR = 5 /HPF [facility] ([facility]) RBC Urine 3-10(A) < OR = 2 /HPF [facility] ([facility]) Squamous Epithelial Cells UA 6-10(A) < OR = 5 /HPF [facility] ([facility]) Bacteria UA MANY(A) NONE SEEN /HPF [facility] ([facility]) Calcium Oxalate UA MANY(A) NONE OR FEW /HPF [facility] ([facility]) Hyaline Casts UA NONE SEEN NONE SEEN /LPF [facility] ([facility]) Culture Urine Comprehensive CULTURE INDICATED - RESULTS TO FOLLOW [facility] ([facility]) Urine Culture Routine SEE NOTE(A) [facility] ([facility]) Comment: CULTURE, URINE, ROUTINE MICRO NUMBER: [id number] TEST STATUS: FINAL SPECIMEN SOURCE: URINE SPECIMEN [...] REPORT COMMENT: SPECIMEN TYPE->URINE Test Performed at: [facility] [address] [place] [address] ISABELLA RODRIGUEZ DO,MPH 03/18/2017 1:48 PM CDT 03/18/2017 1:48 PM CDT Yanni Song MD LAB - URIN ALYSIS ORDERABLES [facility] ([facility]) * DNA ANTIBODY DS CRITHIDIA IFA (12/14/2016 3:12 PM CDT) dsDNA Antibody Crithidia IFA NEGATIVE NEGATIVE [facility] ([facility]) Comment: Test Performed at: [facility] [address] [place] [address] MONAE NGUYEN MD PHD 12/14/2016 3:12 PM CDT 12/14/2016 3:14 PM CDT Yanni Song MD LAB - SERO LOGY ORDERABLES [facility] ([facility]) * JIMENES (SM) ANTIBODY JAIME (12/14/2016 3:12 PM CDT) Pathologist [facility] JAIME Jimnees (SM) Antibody <1.0 NEG <1.0 NEG AI [facility] ([facility]) Comment: Test Performed at: [facility] [address] [address] ISABELLA RODRIGUEZ DO,MPH Blood specimen (specimen) BLOOD SPECIMEN / Unknown 12/14/2016 3:12 PM CDT 12/14/2016 3:14 PM CDT Yanni Song MD LAB - CHEM ISTRY ORDERABLES Performing Organization Address [facility] de Phone Number [facility] ([facility]) * SENIOR TECH MANUFACTURING ENGINEERING ANTIBODY (12/14/2016 3:12 PM CDT) Pathologist [facility] JAIME SENIOR TECH MANUFACTURING ENGINEERING Antibody <1.0 NEG <1.0 NEG AI [facility] ([facility]) Comment: Test Performed at: [place] [address] ISABELLA RODRIGUEZ DO,MPH Blood specimen (specimen) BLOOD SPECIMEN / Unknown 12/14/2016 3:12 PM CDT 12/14/2016 3:14 PM CDT Yanni Song MD LAB - CHEM ISTRY ORDERABLES Performing Organization Address [facility] de Phone Number [facility] ([facility]) * NEMO BLOOD SCREEN W/REFLEX TITER (12/14/2016 3:12 PM CDT) Pathologist [facility] NEMO Screen NEGATIVE NEGATIVE [facility] ([facility]) Comment: NEMO IFA is a first line screen for detecting the presence of up to approximately 150 autoantibodies in various autoimmune diseases. A negative NEMO IFA result suggests NEMO-associated autoimmune diseases are not present at this time. Visit Physician FAQs for interpretation of all antibodies in the Mayes, prevalence, and association with diseases at http://education.SEElogix/ faq/PIE977 Test Performed at: [facility] [address] ISABELLA RODRIGUEZ DO,MPH Blood specimen (specimen) BLOOD SPECIMEN / Unknown 12/14/2016 3:12 PM CDT 12/14/2016 3:14 PM CDT Yanni Song MD LAB - CHEM ISTRY ORDERABLES Performing Organization Address [facility] Co de Phone Number [facility] ([facility]) * SS-A/SS-B (SJOGRENS) ANTIBODY PANEL (12/14/2016 3:12 PM CDT) Sjogren's Antibodies (SSA) <1.0 NEG <1.0 NEG AI [facility] ([facility]) Sjogren's Antibodies (SSB) <1.0 NEG <1.0 NEG AI [facility] ([facility]) Comment: Test Performed at: [facility] [address] [place] [address] ISABELLA RODRIGUEZ DO,MPH 12/14/2016 3:12 PM CDT 12/14/2016 3:14 PM CDT Yanni Song MD LAB - CHEM ISTRY ORDERABLES Performing Organization Address [facility] Phone Number [facility] ([facility]) * DNA ANTIBODY DOUBLE STRANDED (12/14/2016 3:12 PM CDT) dsDNA Antibody 2 IU/mL [facility] ([facility]) Comment: IU/mL Interpretation < or = 4 Negative 5-9 Indeterminate > or = 10 Positive Test Performed at: [facility] [address] [place] [address] ISABELLA RODRIGUEZ DO,MPH Blood specimen (specimen) BLOOD SPECIMEN / Unknown 12/14/2016 3:12 PM CDT 12/14/2016 3:14 PM CDT Yanni Song MD LAB - NORBERT TOLOGY ORDERABLES Performing Organization Address [facility]/ZIP Co de Phone Number [facility] ([facility]) * TSH (12/14/2016 3:12 PM CDT) [facility] TSH 2.34 0.40 - 4.50 mIU/L [facility] ([facility]) Comment: Test Performed at: [facility] [place] [address] ISABELLA RODRIGUEZ DO,MPH Blood specimen (specimen) BLOOD SPECIMEN / Unknown 12/14/2016 3:12 PM CDT 12/14/2016 3:14 PM CDT Yanni Song MD LAB - CHEM ISTRY ORDERABLES [facility] ([facility]) * QUANTIFERON TB-GOLD INC (11/07/2016 1:53 PM CDT) [facility] QuantiFERON TB Gold NEGATIVE NEGATIVE [facility] ([facility]) Comment: Negative test result. M. tuberculosis complex infection unlikely. QuantiFERON Nil Value 0.00 IU/mL [facility] ([facility]) QuantiFERON Mitogen Value >10.00 IU/mL [facility] ([facility]) QuantiFERON TB Antigen minus Nil value <0.00 IU/mL [facility] ([facility]) Comment: The Nil tube value is used [...] IU/mL. For additional information, please refer to http://education.[employer].StowThat/faq/QFT (This link is being provided for informational/ educational purposes only.) REPORT COMMENT: COLLECTION REQUIREMENTS NOT MET. PATIENT ADVISED TO RETURN. Test Performed at: [place] [address] ISABELLA RODRIGUEZ DO,MPH 11/07/2016 1:53 PM CDT 11/07/2016 1:59 PM CDT Maren Hudson MD LAB - SEROLOGY ORD ERABLES Performing Organization Address [facility]/ZIP Co de Phone Number [facility] ([facility]) * HEPATITIS SCREEN ACUTE (11/07/2016 1:53 PM CDT) Hepatitis A Virus Antibody IgM NON-REACTI VE NON-REACT CASTRO [facility] ([facility]) Hepatitis B Virus Surface Antigen NON-REACTI VE NON-REACT CASTRO [facility] ([facility]) Hepatitis B Core Virus Antibody IgM NON-REACTI VE NON-REACT CASTRO [facility] ([facility]) Hepatitis C Antibody NON-REACTI VE NON-REACT CASTRO [facility] ([facility]) Signal/Cutoff 0.02 <1.00 [facility] ([facility]) Comment: Test Performed at: [place] [address] ISABELLA RODRIGUEZ DO,MPH Blood specimen (specimen) BLOOD SPECIMEN / Unknown 11/07/2016 1:53 PM CDT 11/07/2016 1:59 PM CDT Maren Hudson MD LAB - CHEMISTRY OR DERABLES Performing Organization Address [facility]/ZIP Co de Phone Number [facility] ([facility]) * (ABNORMAL) CULTURE URINE (04/29/2014 3:01 PM CDT) Pathologist [facility] Culture Urine ESCHERICHIA COLI(A) [facility] Comment:Greater than 1,000,0 00 CFU/ML Escherichia Coli Urine specimen (specimen) URINE SPECIMEN OBTAINED BY CLEAN CATCH PROCEDURE / Unknown 04/29/2014 3:01 PM CDT 04/29/2014 10:01 PM CDT Narrative [facility] - 05/01/2014 12:38 PM CDT HollisSpecimen#[id number] Hollis Loc/Rm/Bed: EXPCARE C// CLN CATCH U [...] ORDERABLES [facility] [address] [place] [address] Care Teams Eng[employer]ver Tire Mold Relationship Specialty Start Date End Date John Gomez DO [address] [place] [address] PCP - General 04/11/21
--- OUTSIDE RECORDS SUMMARY | 2024-08-24 02:13 | XMS_ITS | Patient Health Record ---
Author Organization [facility] Address [address] [place] [address] Care Team Providers Care Lockstitch Lining Setter Name Role Phone Fannie Campuzano Primary Care Provider [phone] Allergies Allergen (clinical drug ingredient) Drug/Non Drug [...] Start Date End Date Status busPIRone HCl 15 MG 1 tablet Orally Twic e a day for 30 days Active Lexapro 20 MG 1 tablet Orally Once a day for 30 days Active Lisinopril 5 MG 1 tablet Orally Once a day for 30 day(s) Active Admelog 100 UNIT/ML as directed Subcutaneous 9-15 units 3 times a day Active Basaglar KwikPen 100 UNIT/ML as directed Subcutaneous 62 units twice a day Active SEROquel 25 MG 1 tablet in morning Orally Once a day for 30 days Active Cosentyx 300 Dose 1 monthly No t-Taking SEROquel 300 MG 0.5 tablet at bedtim e Orally Once a day for 30 days Active Eliquis Active metFORMIN HCl 500 MG 1 tablet with a car l Orally twice a day Not-Taking Lexapro 10 MG 1 tablet Orally Once a day for 30 days Active Pravastatin Sodium 40 MG 1 tablet Orally Once a day for 30 day(s) Active RisperDAL 1 MG 1 tablet Orally twic e a day for 30 days Active Levothyroxine Sodium 150 MCG 1 tablet [...] W/U Status Risk Notes Problem Schizoaffective disorder (28880467) Schizoaffective disorder (F25.9) Active confirmed Vital Signs Height 5ft 7 in in 09/24/2023 Weight 227 lbs 09/24/2023 BMI 35.55 kg/m2 09/24/2023 Encounters Encounter Location Date Provider Diagnosis [address] [place] [address] 09/02/2023 Arif Habib [address] [place] [address] 09/19/2023 Arif Habib Schizoaffective diso rder F25.9 [facility] [address] [place] [address] 09/23/2023 Arif Habib [address] [place] [address] 01/21/2024 Arif Habib Schizoaffective diso rder F25.[address] [place] [address] 01/24/2024 Arif Habib [facility] [address] [place] [address] 03/03/2024 Arif Habib Schizoaffective diso rder F25.[address] [place] [address] 03/27/2024 Arif Habib Schizoaffective diso rder F25.[address] [place] [address] 05/20/2024 Arif Habib Schizoaffective diso rder F25.[address] [place] [address] 07/14/2024 Arif Habib [address] [place] [address] 07/27/2024 Arif Habib Schizoaffective diso rder F25.[address] [place] [address] 09/24/2023 Arif Habib Schizoaffective diso rder F25.[address] [place] [address] 10/22/2023 Arif Habib Schizoaffective diso rder F25.[address] [place] [address] 01/24/2024 Arif Habib Schizoaffective diso rder F25.[address] [place] [address] 03/24/2024 Arif Habib Schizoaffective diso rder F25.[address] [place] [address] 05/19/2024 Arif Habib Schizoaffective diso rder F25.[address] [place] [address] 07/21/2024 Arif Habib Schizoaffective diso rder F25.9 Assessments Encounter Date Diagnosis (ICD Code) Assessment Notes Treatment Notes Treatment Clinical Notes Section Notes 07/27/2024 Schizoaffective disorder (ICD-10 - F25.9) 07/21/2024 Schizoaffective disorder (ICD-10 - F25.9) risk & benefits discussed. Restart her Seroquel. Risperdal and Buspar half of the doses. Side effec ts discussed. Supportive treatment provided. 05/20/2024 Schizoaffective disorder (ICD-10 - F25.9) 05/19/2024 Schizoaffective disorder (ICD-10 - F25.9) risk & benefits discussed. Continue current treatment. No involuntary movements reported. Continue current medicications. 03/27/2024 Schizoaffective disorder (ICD-10 - F25.9) 03/24/2024 Schizoaffective disorder (ICD-10 - F25.9) risk & benefits discussed. Continue current treatment. No involuntary movements reported. Continue current medicications. 03/03/2024 Schizoaffective disorder (ICD-10 - F25.9) 01/24/2024 Schizoaffective disorder (ICD-10 - F25.9) risk & benefits discussed. Continue current treatment. No involuntary movements reported. Continue current medicications. 01/21/2024 Schizoaffective disorder (ICD-10 - F25.9) 10/22/2023 Schizoaffective disorder (ICD-10 - F25.9) risk & benefits discussed. Continue current treatment. No involuntary movements reported. Continue Risperdal 1.5 mg BID,and other medicications. 09/24/2023 Schizoaffective disorder (ICD-10 - F25.9) risk & benefits discussed. Continue current treatment. No involuntary movements reported. Increase Risperdal 1.5 mg BID, stop TRazodone 09/19/2023 Schizoaffective disorder (ICD-10 - F25.9) Plan Of Treatment No Information Insurance Providers Payer Name Payer Address Payer Phone Subscriber Number Group Number Insured Name Patient Relationship to Insured Coverage Start Date Coverage End Date MEDICARE PART A [address] [place] [address] [id number] Carol Gee Self - patient is the insured [address] [place] [address] Attn Claims Department [address] [place] [address] [phone] [id number] Carol Gee Self - patient is the insured 3 [facility] Attn Claims Department [address] [place] [address] [phone] Carol Gee Self - patient is the insured 0 2 [facility] Attn Claims Department [address] [address] [phone] Carol Gee Self - patient is the insured 0 2 [facility][1] [facility] Attn Claims Department [address] [place] [address] [phone] Carol Gee Self - patient is the insured 3 Medical (General) History Medical History History ICD Code Hyperlipidemia Diabetes Surgical History Surgery Date(Month/Year) bunion surgery 1992 total hysterectomy 1996 hernia surgery 05/2000 gallbladder Hospitalization History Reason Date(Month/Year) consitpation 2022 Hernia Surgery 05/2000 Total Hysterectomy 1996 UTI 2022 Gallbladder
--- OUTSIDE RECORDS SUMMARY | 2024-08-24 02:13 | XMS_ITS ---
Author Organization [facility] Address [address] [place] [address] Care Team Providers Care Flatwork Finisher Hand Name Role Phone Fannie Campuzano Primary Care Provider [phone] Allergies Allergen (clinical drug ingredient) Drug/Non Drug [...] CSSR Interpretation and Follow UP Plan, call [phone]- (she is having trouble hearing today) Medications [...] Nonsmoker Encounters Encounter Location Date Provider Diagnosis [address] [address] 07/21/2024 Arif Habib Schizoaffective diso rder F25.9 [...] Notes * Hermila GEEsDOB:1955 (68 yo F)Acc No.[id number]:07/21/2024 Patient: Carol MAY Provider: Miguel Campuzano :1955 A ge:68 Y S ex:Female Date:07/21/2024 Address:[address] [place] [address], [id number] [id number] Subjective: * Chief Complaints: * P sych F/UDiscuss medsCSSR Interpretation and Follow UP PlanCall [phone]- (she is having trouble hearing today) * [...] I nterpretation M ild Depression. S creening: [place] Suicide Severity Rating Scale (LF) D o [...] today Reports she has been in [facility] since beginning of March 2024. Pt was in medical hospitaland her Risperdal, Seroquel, Buspar were stopped. Reports feeling depressed because being there . Pt reports she is doing alright. Medications are working. Denies side effects. Sleep is alright. Denies hallucination or delusions. Appetite is alright. Denies SI/HI. D enies manic or hypo manic symptoms. Anxiety is under control. (Pt was inpatient at [facility] total for 22 days .Pt was first on medical floor because she had covid with no symptoms. Pt was paranoid, delusional. She thought she had no insurance, no money, no food and she stopped takin medicines at home and taking care of self. She started declining after she moved to [employer] [facility] apartment alone. Pt had he mdications adjusted in hospital and also Risperdal was added. She showed significant improvement with Risperdal.). [facility]. 66 year old sister who on 05/09/21. 93 year old Aunt in August 2021. Her Parents and all siblings are now. (all 5 brothers & 2 sisters are ). Follows [facility] for sleep apnea. On CPAP. Uses BiPAP. [...] , 74- COPD. S iblings: 28 brother- [id number]- AMA. 2 brother(s) , 1 sister(s) . 1 son(s) , 2 daughter(s) - healthy. . * Social History: P rimary Social History: L iving Arrangement L iving Arrangement: D ependent Living, L iving with: O ther: Lives at [facility], I s this a supportive environment? Y [...] * Follow Up: 4 Weeks * * TENANCE COORDINATOR Sign off status: Completed true * Provider: Miguel Campuzano Date: 0 07/21/2024 Generated for Delilah castle/Vinicio/Hasmukh on: 0 08/24/2024 02:13 AM MAINTENANCE COORDINATOR History and Physical Notes * HPI (History of Present Illness) Category Sub-Category Detail Notes Category Not es Depression Screening PHQ9 PHQ-2 (2015 Edition) Little interest or pleasure in doing things?: Not at all Phone session today Reports she has been in [facility] since beginning of March 2024. Pt was in medical hospitaland her Risperdal, Seroquel, Buspar were stopped. Reports feeling depressed because being there . Pt reports she is doing alright. Medications are working. Denies side effects. Sleep is alright. Denies hallucination or delusions. Appetite is alright. Denies SI/HI. Denies manic or hypo manic symptoms. Anxiety is under control. (Pt was inpatient at [facility] total for 22 days .Pt was first on medical floor because she had covid with no symptoms. Pt was paranoid, delusional. She thought she had no insurance, no money, no food and she stopped takin medicines at home and taking care of self. She started declining after she moved to [employer] [facility] apartment alone. Pt had he mdications adjusted in hospital and also Risperdal was added. She showed significant improvement with Risperdal.). [facility]. 66 year old sister who on 05/09/21. 93 year old Aunt in August 2021. Her Parents and all siblings are now. (all 5 brothers & 2 sisters are ). Follows [facility] for sleep apnea. On CPAP. Uses BiPAP. [...] Total Score: 5 Interpretation: Mild Depression Screening [place] Suicide Sev erity Rating Scale (LF) Do [...]
[2024-08-24 02:24] LABS: Influenza A QL RT-PCR Positive (Negative); Influenza B QL RT-PCR Negative (Negative); RSV RNA, RT-PCR Negative (Negative); SARS-CoV-2 RNA PCR Positive (Negative)
--- NOTE | 2024-08-24 02:39 | ED_ITS ---
HPI - SOB/Dyspnea General Chief Complaint: Shortness of Breath/Dyspnea Stated Complaint: SOB, weakness, frequent urination Time Seen by Provider: 08/24/24 02:00 History of Present Illness HPI Narrative: 68-year-old female with a past medical history including atrial fibrillation and PE on anticoagulation, type 2 diabetes, hypertension, recent admission and discharge from the hospital after septic kidney stone requiring lithotripsy and ICU stay. [facility] facility. She normally wears CPAP at night and has oxygen as needed with ambulation according to the daughter at bedside. Patient is not any acute distress, answering all questions appropriately, awake and alert oriented. She has complained of some cystitis type symptoms with frequency and dysuria without any burning urination or foul odor. States that she has chronic urinary infections. Denies any abdominal pain or back pain. Has been doing with a nonproductive cough for several days. No fever or chills. Patient was reportedly hypoxic on room air at her facility. Required 2 L nasal cannula for 97% saturation. Related Data Home Medications ?Medication ?Instructions ?Recorded ?Confirmed ?Last Taken ?Type diltiazem HCl 120 mg capsule,24 120 mg PO DAILY 06/29/19 07/24/24 07/24/24 History hr,extended release metoprolol succinate 25 mg 25 mg PO DAILY 01/25/21 07/24/24 07/24/24 History tablet,extended release 24 hr aspirin 81 mg tablet,delayed 81 mg PO DAILY 08/20/22 07/24/24 07/16/24 History release cholecalciferol (vitamin D3) 10 2,000 unit PO DAILY 12/17/22 07/16/24 07/05/24 10:00 History mcg (400 unit) capsule apixaban 5 mg tablet (Eliquis) 5 mg PO BID 03/27/24 07/24/24 07/20/24 History acetaminophen 650 mg tablet 650 mg PO Q6H PRN y 03/30/24 07/24/24 07/24/24 History bisacodyl 10 mg rectal suppository 10 mg RECTAL HS PRN constipation 07/06/24 07/16/24 Unknown History (Dulcolax (bisacodyl)) docusate sodium 100 mg tablet 100 mg PO DAILY PRN constipation 07/06/24 07/16/24 04/19/24 22:55 History ondansetron 4 mg disintegrating 4 mg PO Q8H PRN nausea 07/06/24 07/16/24 07/04/24 19:40 History tablet Allergies Allergy/AdvReac Type Severity Reaction Status Date / Time Cephalosporins Allergy Unknown Hives Verified 08/24/24 02:02 ciprofloxacin Allergy Unknown Hives Verified 08/24/24 02:02 codeine Allergy Unknown Hives Verified 08/24/24 02:02 erythromycin base Allergy Unknown Hives Verified 08/24/24 02:02 levofloxacin Allergy Unknown Hives Verified 08/24/24 02:02 lidocaine Allergy Unknown Hives Verified 08/24/24 02:02 Macrolide Antibiotics Allergy Unknown Hives Verified 08/24/24 02:02 Quinolones Allergy Unknown Hives Verified 08/24/24 02:02 Sulfa (Sulfonamide Allergy Unknown Hives Verified 08/24/24 02:02 Antibiotics) theophylline Allergy Unknown Hives Verified 08/24/24 02:02 citalopram AdvReac Unknown Agitated Verified 08/24/24 02:02 ALL ASHLEY DRUGS Allergy Mild ITCHING, Uncoded 08/24/24 02:02 BURNING, SWELLING AT SITE Review of Systems 2 Review of Systems: As [facility] Past Medical History Medical History Chronic pain CHF (congestive heart failure) Thoracic aortic aneurysm (TAA) 4.2 cm ALIIVA (obstructive sleep apnea) Bipap Sepsis Chronic kidney disease Depression Obstructive sleep apnea treated with BiPAP Psoriasis Type 2 diabetes mellitus Hyperlipidemia COVID-19 Spinal stenosis Ascending aortic aneurysm Atrial fibrillation No longer on anticoagulation as of fall 2022 due to history of falls. Hypothyroidism Kidney stone Psoriatic arthritis Vitamin D deficiency Essential (primary) hypertension Surgical History Surgical History History of hysterectomy History of bunionectomy Family History Family History Sibling Family history of respiratory disorder Family history of diabetes mellitus in first degree relative Family history of congestive heart failure Acute myocardial infarction Mother Family history of chronic obstructive pulmonary disease Family history of congestive heart failure Father Acute myocardial infarction Other Family history of arthritis Family history of malignant neoplasm Family history of mental disorder Hypertension Social History Social History Social History: Surrogate medical decision maker: June Gee or Sienna Roy, daughters. Code status: Full code. Smoking status: Unknown if ever smoked Second hand tobacco smoke exposure: Yes Alcohol intake: never Substance use: never Substance use type: does not use Do You Feel Safe in your Home?: Yes Lack of Transportation: No Lack of Food: Never True Current Housing: I Have Housing Concerned About Future Housing: No Difficulty Paying Gas/Electric Bills: No Difficulty Paying for Meds: No Currently Unemployed: No Education: High School Diploma/GED Difficulty w/ Childcare or Family Care: No Living arrangements: [facility] Additional living arrangements comments: The patient lives in her own home in [place]. Spiritual care concerns: No Exam 2 Narrative: GENERAL: Appears older than stated age, chronically ill-appearing but not any acute distress. HEAD: [Normocephalic, atraumatic.] EYES: [PERRLA and EOMI.] ENT: Nares clear, no rhinorrhea or epistaxis. Mucous membranes moist. NECK: Supple. CHEST: [Clear to auscultation. No respiratory distress.] HEART: [Regular rate and rhythm]. No murmur heard. [Normal peripheral pulses.] ABDOMEN: [Soft, nondistended], [nontender], [No rigidity or guarding] EXTREMITIES: Normal range of motion. [No edema.] SKIN: Warm, dry, no rash. NEURO: [No focal deficits]. Alert and oriented [x3.] PSYCH: [Normal mood and affect.] Course Vital Signs Vital signs: Vital Signs Temperature 36.6 C 08/23/24 17:12 Pulse Rate 81 08/23/24 17:12 Respiratory Rate 16 08/23/24 17:12 Blood Pressure 120/59 L 08/23/24 17:12 Pulse Oximetry 95 08/23/24 17:12 Oxygen Delivery Room Air 08/23/24 17:12 Temperature 36.7 C 08/24/24 03:08 Pulse Rate 83 08/24/24 03:08 Respiratory Rate 17 08/24/24 03:08 Blood Pressure 131/71 08/24/24 03:08 Pulse Oximetry 100 08/24/24 03:08 Oxygen Delivery Nasal Cannula 08/24/24 01:46 Oxygen Flow Rate 1 08/24/24 01:46 MDM - SOB/Dyspnea MDM Narrative Medical decision making narrative: 68-year-old female with history of AFib, PE on Eliquis, type 2 diabetes, hypertension, recent hospital visit and stay for septic kidney stone requiring lithotripsy and antibiotics. She was discharged home to her nursing facility in good health. She has been doing well but having a nonproductive cough for the last few days associated some hypoxia today. She wear CPAP at night and oxygen as needed with ambulation according to the daughter. Patient is not any acute distress, vital signs are reassuring with a normal blood pressure, no tachycardia, fever, saturating 95% on minimal oxygen 1L. Patient has a cough throughout the examination but is nonproductive. Some mostly clear breath sounds throughout without any wheezing or prolonged expiratory phase. Suspicion presently is for potential pneumonia, viral syndrome such as COVID or influenza, less likely aspiration but still possible. Unlikely intrathoracic process such as pneumothorax or PE given her anticoagulation status and normal vital signs otherwise. CBC, CMP, x-ray, EKG, viral swabs and urinalysis obtained. She was placed on cardiac care nurse and pulse oximetry. Patient was taken off oxygen during my assessment and remained with normal oxygen between 92 and 96 while she is resting comfortably in breathing. Does drop down in the upper 80s when she falls asleep but does wear a CPAP at night and her daughter corroborates that she does wear oxygen as needed at the facility. Workup shows no leukocytosis, hemoglobin of 8.2 which is slightly lower than her baseline but there is no concern for active bleeding anywhere. Chemistry panel shows normal electrolytes, BUN and creatinine are slightly up from baseline but not severe. Normal glucose. Normal LFTs. Urinalysis has again urinary infection and review of the microbiology specimen showed pansensitive E coli previously. Patient will be started on appropriate oral antibiotics likely nitrofurantoin given her allergy list. Patient did test positive for both influenza and COVID and this combined with a chest x-ray showing some mild pulmonary congestion is likely the source of her presentation today. Coughing related to COVID influenza and potentially some fluid overload. She was provided IV Lasix for diuresis. She is saturating appropriately without any oxygen and has oxygen available at her [facility] after we called and confirmed that she does use oxygen as needed and has availability of her condenser with CPAP at night. Patient's family members were aware of the plan for discharge back to her facility at this time with symptomatic controlling medications and Tamiflu initiation given her high risk factors for decompensation from flu. EKG shows AFib but no signs of acute ischemia. Patient is safe and stable for discharge at this time. Medical Records Attestation: I reviewed the patient's medical records. Lab Data Attestation: I reviewed the patient's lab results. 08/24/24 01:41 08/24/24 01:41 Labs: Lab Results 08/24/24 Range/Units 01:41 WBC 5.3 (4.5-10.0) K/mm3 RBC 3.54 L (4.2-5.4) M/mm3 Hgb 8.2 L (12.0-15.0) g/dL Hct 26.9 L (37.0-47.0) % MCV 76.0 L (80-100) fl MCH 23.2 L (26-34) pg MCHC 30.5 L (32-36) g/dl RDW 19.5 H (11.5-14.5) % Plt Count 139 L D (150-375) k/mm3 MPV 10.1 (7.4-10.4) fl Immature Gran % (Auto) 0.4 (0-0.5) % Neut % (Auto) 58.7 (45.5-73.1) % Lymph % (Auto) 27.4 (18.3-44.2) % [place] % (Auto) 12.9 H (2.6-8.5) % Eos % (Auto) 0.2 (0-4.4) % Baso % (Auto) 0.4 (0.2-1.2) % Lymph # (Auto) 1.44 (0.9-3.2) K/mm3 [place] # (Auto) 0.7 H (0.1-0.6) K/mm3 Eos # (Auto) 0.0 (0-0.3) K/mm3 Baso # (Auto) 0.0 (0.0-0.1) K/mm3 Abs Immat Gran (auto) 0.02 (0.00-0.031) K/mm3 Absolute Neuts (auto) 3.1 (1.3-6.7) K/mm3 Absolute Nucleated RBC 0.000 (0.0-0.012) K/mm3 Nucleated RBC % 0.0 (0.0-0.2) % Sodium 135 L (137-145) mmol/L Potassium 4.1 (3.4-5.0) mmol/L Chloride 100 (98-107) mmol/L Carbon Dioxide 28 (22-30) mmol/L Anion Gap 7 (4-12) mmol/L BUN 23 H D (7-17) mg/dL Creatinine 1.05 H (0.7-1.0) mg/dL Estim Creat Clear Calc 54 ml/min Estimated GFR 52 L (59 - ) Glucose 148 H (65-110) mg/dL Calcium 9.6 (8.4-10.2) mg/dL Total Bilirubin 0.4 (0.2-1.3) mg/dL AST 25 (14-36) U/L ALT 14 (6-35) U/L Alkaline Phosphatase 117 (38-126) U/L Total Protein 8.0 (6.3-8.2) g/dL Albumin 3.3 L (3.5-5.1) g/dL Urine Color Yellow (Yellow) Urine Appearance Turbid H (Clear) Urine pH 5.5 (5.0-9.0) Ur Specific [place] 1.024 (1.001-1.035) Urine Protein 1+ H (Negative) mg/dL Urine Glucose (UA) Negative (Negative) mg/dL Urine Ketones Trace H (Negative) mg/dL Ur Blood (Man) 2+ H (Negative) Urine Nitrate Positive H (Negative) Urine Bilirubin Negative (Negative) Urine Urobilinogen 0.2 (<2.0) mg/dL Add Ur Microanalysis Reviewed Leukocyte Esterase Rfl 2+ H (Negative) SPENCER/UL Urine RBC 0-2 (0-2) /hpf Urine WBC >100 H (0-3) /hpf Ur Squamous Epith Cells Occasional (Few) /hpf Calcium Oxalate Crystal Present (None) /hpf Urine Bacteria 4+ H /hpf Urine Casts 11-20 Influenza A (RT-PCR) Positive A (Negative) Influenza B (RT-PCR) Negative (Negative) RSV (RT-PCR) Negative (Negative) SARS-CoV-2 RNA (RT-PCR) Positive A (Negative) Imaging Data Attestation: I personally reviewed and interpreted this imaging study as follows: My impression: Mild pulmonary vascular congestion, no pneumonia. Discharge Plan Discharge Clinical Impression: Influenza A, COVID, Mild congestive heart failure, History of home oxygen therapy, Acute UTI Patient Disposition: NH Fdc/Asst Living Condition: Stable Instructions: Antibiotic Form, Influenza (ED), Acute Cough (ED), Urinary Tract Infection in Older Adults (ED), COVID-19 (Coronavirus Disease 2019) (ED) Additional Instructions: You tested positive for both COVID and influenza and combined with your minor CHF exacerbation is likely causing your coughing and intermittent oxygen requirements. We call your [facility] who is ready to supply you with appropriate oxygen as needed in addition to her nightly CPAP and we will start her on appropriate medications including antiviral such as Tamiflu for the viral infection and give you cough medications such as benzonatate. Continue taking her other medications as prescribed, return with any worsening concerns or needing more oxygen. Follow-up with regular doctor. Patient Language: Bulgarian Prescriptions: New oseltamivir [Tamiflu] 75 mg capsule 75 mg PO Q12H 5 Days Qty: 10 0RF benzonatate 200 mg capsule 200 mg PO TID PRN (Reason: cough) Qty: 20 0RF nitrofurantoin monohyd/m-cryst [Macrobid] 100 mg capsule 100 mg PO Q12H 7 Days Qty: 14 0RF Rx Instructions: must administer with a meal/food oseltamivir [Tamiflu] 75 mg capsule 75 mg PO Q12H 5 Days Qty: 10 0RF benzonatate 200 mg capsule 200 mg PO TID PRN (Reason: cough) Qty: 20 0RF nitrofurantoin monohyd/m-cryst [Macrobid] 100 mg capsule 100 mg PO Q12H 7 Days Qty: 14 0RF Rx Instructions: must administer with a meal/food No Action diltiazem HCl 120 mg capsule,extended release 24 hr 120 mg PO DAILY metoprolol succinate 25 mg tablet extended release 24 hr 25 mg PO DAILY cholecalciferol (vitamin D3) 10 mcg (400 unit) capsule 2,000 unit PO DAILY (DME) spirometers and accessories Device See Rx Instructions .Route Qty: 1 0RF Rx Instructions: As directed Eliquis 5 mg tablet 5 mg PO BID Patient Comments: HOLD [address] Mclaughlin buspirone 30 mg tablet 30 mg PO BID Qty: 1 0RF quetiapine 300 mg tablet 300 mg PO QHS Qty: 1 0RF aspirin 81 mg tablet,delayed release (DR/EC) 81 mg PO DAILY Patient Comments: HOLD [address] Mclaughlin ([facility]) [facility] See Rx Instructions .Route Qty: 200 1RF Rx Instructions: TID polyethylene glycol 3350 [Miralax] 17 gram/dose powder 17 g PO DAILY 30 Days Qty: 510 0RF acetaminophen 650 mg Tablet 650 mg PO Q6H MDD pain PRN (Reason: y) tramadol 50 mg Tablet 50 mg PO Q6H PRN (Reason: pain 4-6) Qty: 20 0RF docusate sodium 100 mg tablet 100 mg PO DAILY PRN (Reason: constipation) bisacodyl [Dulcolax (bisacodyl)] 10 mg suppository 10 mg RECTAL HS PRN (Reason: constipation) Rx Instructions: If no BM x1 day ondansetron 4 mg tablet,disintegrating 4 mg PO Q8H PRN (Reason: nausea) insulin glargine [Lantus U-100 Insulin] 100 unit/mL Solution 12 unit subcut DAILY Qty: 10 0RF insulin aspart U-100 [Novolog U-100 Insulin aspart] 100 unit/mL Solution 1 - 3 unit subcut HS Qty: 10 0RF Protocol: Insulin Corrective Moderate-Dose Condition: glucose < 70 mg/dl Dose/Route: Follow hypoglycemia orders Condition: glucose 70-200 mg/dl Dose/Route: No additional insulin Condition: glucose 201-250 mg/dl Dose/Route: 1 units sub-Q Condition: glucose 251-300 mg/dl Dose/Route: 2 units sub-Q Condition: glucose 301-350 mg/dl Dose/Route: 2 units sub-Q Condition: glucose 351-400 mg/dl Dose/Route: 3 units sub-Q Condition: glucose > 400 mg/dl Dose/Route: Call insulin aspart U-100 [Novolog U-100 Insulin aspart] 100 unit/mL Solution 3 - 6 unit subcut TIDWM Qty: 10 0RF Protocol: Insulin Corrective Moderate-Dose Condition: glucose < 70 mg/dl Dose/Route: Follow hypoglycemia orders Condition: glucose 70-200 mg/dl Dose/Route: No additional insulin Condition: glucose 201-250 mg/dl Dose/Route: 3 units sub-Q Condition: glucose 251-300 mg/dl Dose/Route: 4 units sub-Q Condition: glucose 301-350 mg/dl Dose/Route: 5 units sub-Q Condition: glucose 351-400 mg/dl Dose/Route: 6 units sub-Q Condition: glucose > 400 mg/dl Dose/Route: Call MD Protocol Text: *No Correction Dose at Bedtime* insulin aspart U-100 [Novolog U-100 Insulin aspart] 100 unit/mL Solution 4 unit subcut TIDWM Qty: 10 0RF amoxicillin-pot clavulanate 875-125 mg tablet 1 tablet PO Q12H Qty: 10 0RF hydrocodone-acetaminophen 5-325 mg tablet 1 - 2 tablet PO Q6H PRN (Reason: pain) Qty: 20 0RF escitalopram oxalate 20 mg tablet 20 mg PO DAILY Qty: 30 0RF (DME) blood-glucose meter [OneTouch Ultra2 Meter] Misc See Rx Instructions .Route Qty: 1 0RF Rx Instructions: Use meter to test blood sugar 3 times a day levothyroxine [Euthyrox] 150 mcg tablet 150 mcg PO DAILY Qty: 90 1RF magnesium oxide 400 mg (241.3 mg magnesium) tablet 800 mg PO DAILY Qty: 180 1RF Rx Instructions: Take 2 tablets by mouth daily (DME) OneTouch Ultra Test Strip See Rx Instructions .ROUTE .COMPLEX Qty: 100 0RF Dose Instruction: USE STRIP TO CHECK GLUCOSE THREE TIMES DAILY Rx Instructions: USE STRIP TO CHECK GLUCOSE THREE TIMES DAILY (DME) pen needle, diabetic [TRUEplus Pen Needle] 31 gauge x 5/16 needle See Rx Instructions .ROUTE .COMPLEX Qty: 100 0RF Dose Instruction: USE DIRECTED TWICE DAILY FOR BLOOD SUGAR Rx Instructions: USE DIRECTED TWICE DAILY FOR BLOOD SUGAR Follow-up/Referrals: Margoth,Franco Yao DO [Primary Care Provider] - Stand Alone Forms: Jail Discharge Time of Disposition: 04:07
[2024-08-24] MEDS: FUROSEMIDE INJ 40 MG/4 ML VIAL IV PUSH (03:36)
--- NOTE | 2024-08-24 04:47 | PC.NURSE ---
Upon discharge patient had an SPO2 of 99 on room air.
== END 2024-08-24 04:48 ==
PROVIDERS: Emergency Provider Student in an Organized Health Care Education/Training Program; PCP Internal Medicine
DX: J10.1 Influenza due to other identified influenza virus with other respiratory manifestations (principal); U07.1 COVID-19; N39.0 Urinary tract infection, site not specified; Z99.81 Dependence on supplemental oxygen; I48.91 Unspecified atrial fibrillation; Z79.01 Long term (current) use of anticoagulants; Z86.711 Personal history of pulmonary embolism; Z79.82 Long term (current) use of aspirin; I50.9 Heart failure, unspecified; N18.9 Chronic kidney disease, unspecified; G47.33 Obstructive sleep apnea (adult) (pediatric); Z99.89 Dependence on other enabling machines and devices; E78.5 Hyperlipidemia, unspecified; E03.9 Hypothyroidism, unspecified; E55.9 Vitamin D deficiency, unspecified; I13.0 Hypertensive heart and chronic kidney disease with heart failure and stage 1 through stage 4 chronic kidney disease, or unspecified chronic kidney disease; E11.22 Type 2 diabetes mellitus with diabetic chronic kidney disease
CPT/HCPCS: 36415; 71045; 80053; 81001; 85025; 87086; 87186; 87637; 93005; 96374; 99284; J1940

== ENCOUNTER 2024-11-20 10:10 | Outpatient (CLI) | payer MEDICARE, MEDICAID, SELFPAY ==
--- NOTE | ~2024-11-20 | XR_ITS ---
XR abdomen/kub 1V Ordering provider: Hardik Mclaughlin MD History: . kidney stone on the left . Comparison: August 11, 2024 FINDINGS: BOWEL: Fecal material is loaded in the rectum and colon. Nonobstructive bowel gas pattern. ORGANOMEGALY: None. SIGNIFICANT PATHOLOGIC CALCIFICATIONS: The kidneys are overlapped by fecal material but stones in the left kidney area are noted OTHER: No free air is seen under the diaphragm. Degenerative changes of the spine. Bilateral severe hip osteoarthritic changes more on the left side. IMPRESSION: NO ACUTE ABDOMINAL FINDINGS. Left kidney stones. Constipation. Reviewed, dictated and finalized at location A.
--- OUTSIDE RECORDS SUMMARY | 2024-11-20 10:16 | XMS_ITS | Patient Health Record ---
Author Organization [facility] Address [address] [place] [address] Care Team Providers Care Field Trainer Name Role Phone Fannie Campuzano Primary Care Provider [phone] Allergies Allergen (clinical drug ingredient) Drug/Non Drug [...] busPIRone HCl 15 MG 1 tablet Orally 3 times a day for 7 days Active RisperDAL 1 MG 1 tablet Orally twic e a day for 30 days Active Magnesium Bisglycinate 100 MG 2 tablets (400mg) Orally twice a day Active SEROquel 300 MG 0.5 tablet at [...] car l Orally twice a day Not-Taking Pravastatin Sodium 40 MG 1 tablet Orally Once a day for 30 day(s) Active Basaglar KwikPen 100 UNIT/ML as directed Subcutaneous 62 units twice a day Active Lexapro 10 MG 1 tablet Orally Once a day for 30 days Active Cosentyx 300 Dose 1 monthly No t-Taking Levothyroxine Sodium 150 MCG 1 tablet in the morning on an empty stomach Orally Once a day for 30 day(s) Active dilTIAZem HCl ER Beads 120 MG 1 capsule Orally Once a day for 30 day(s) Active Social History Tobacco Use: Social History [...] W/U Status Risk Notes Problem Schizoaffective disorder (F25.9) Active confirmed Encounters Encounter Location Date Provider Diagnosis [address] [place] [address] 01/24/2024 Arif Habib Schizoaffective diso rder F25.[address] [place] [address] 03/24/2024 Arif Habib Schizoaffective diso rder F25.[address] [place] [address] 05/19/2024 Arif Habib Schizoaffective diso rder F25.[address] [place] [address] 07/21/2024 Arif Habib Schizoaffective diso rder F25.[address] [place] [address] 09/01/2024 Arif Habib Schizoaffective diso rder F25.[address] [place] [address] 11/17/2024 Arif Habib [address] [place] [address] 01/21/2024 Arif Habib Schizoaffective diso rder F25.[address] [place] [address] 01/24/2024 Arif Habib [address] [place] [address] 03/03/2024 Arif Habib Schizoaffective diso rder F25.[address] [place] [address] 03/27/2024 Arif Habib Schizoaffective diso rder F25.[address] [place] [address] 05/20/2024 Arif Habib Schizoaffective diso rder F25.[address] [place] [address] 07/14/2024 Arif Habib [address] [place] [address] 07/27/2024 Arif Habib Schizoaffective diso rder F25.[address] [place] [address] 11/17/2024 Arif Habib Schizoaffective diso rder F25.9 Assessments Encounter Date Diagnosis (ICD Code) Assessment Notes Treatment Notes Treatment Clinical Notes Section Notes 05/19/2024 Schizoaffective disorder (ICD-10 - F25.9) risk & benefits discussed. Continue current treatment. No involuntary movements reported. Continue current medicications. 11/17/2024 Schizoaffective disorder (ICD-10 - F25.9) 03/03/2024 Schizoaffective disorder (ICD-10 - F25.9) 01/24/2024 Schizoaffective disorder (ICD-10 - F25.9) risk & benefits discussed. Continue current treatment. No involuntary movements reported. Continue current medicications. 09/01/2024 Schizoaffective disorder (ICD-10 - F25.9) Continue current treatment. Side effects discussed. Supportive treatment provided. 07/27/2024 Schizoaffective disorder (ICD-10 - F25.9) 05/20/2024 Schizoaffective disorder (ICD-10 - F25.9) 03/27/2024 Schizoaffective disorder (ICD-10 - F25.9) 03/24/2024 Schizoaffective disorder (ICD-10 - F25.9) risk & benefits discussed. Continue current treatment. No involuntary movements reported. Continue current medicications. 01/21/2024 Schizoaffective disorder (ICD-10 - F25.9) 07/21/2024 Schizoaffective disorder (ICD-10 - F25.9) risk & benefits discussed. Restart her Seroquel. Risperdal and Buspar half of the doses. Side effec ts discussed. Supportive treatment provided. Plan Of Treatment Next Appt Details Provider Name:Fannie Justen, 02:00:00 PM, [address] [facility] , [place], [address], Insurance Providers Payer Name Payer Address Payer Phone Subscriber Number Group Number Insured Name Patient Relationship to Insured Coverage Start Date Coverage End Date MEDICARE PART A [address] [place] [address] [id number] Carol Gee Self - patient is the insured 2 [facility] Claims Department [address] [place] [id number] Carol Gee Self - patient is the insured 3 [facility] Claims Department [address] [place] [address] [id number] Carol Gee Self - patient is the insured 0 2 [facility] [address] [place] [address] [id number] Carol Gee Self - patient is the insured 0 2 [employer] Claims Department [address] [place] [address] [id number] Carol Gee Self - patient is the insured 3 Medical (General) History Medical History History ICD Code Hyperlipidemia Diabetes Surgical History Surgery Date(Month/Year) bunion surgery 1992 total hysterectomy 1996 hernia surgery 05/2000 gallbladder Hospitalization History Reason Date(Month/Year) consitpation 2022 UTI 2022 Gallbladder Hernia Surgery 05/2000 Total Hysterectomy 1996
--- OUTSIDE RECORDS SUMMARY | 2024-11-20 10:16 | XMS_ITS | Encounter Summary ---
Author Organization [facility] Address [address] [place] [address] Care Team Providers Care Manager Part Name Role Phone PatriciaWildere Cassia RODRIGUEZ Primary Care Provider [phone] Encounter Details Date Type Department Care Team (Late st Contact Info) Description 07/18/2021 Telephone [facility] [address] [facility], [place] [address] Pastora Roy PA [facility] 3 [place] [address] Social History Tobacco Use Types Packs/Day Years Used Date Smoking Tobacco: Never Smokeless Tobacco: Never Alcohol Use Standard Drinks/Week Comments No 0 (1 standard drink = 0.6 oz pur e alcohol) Comments No Sex and Gender Information Value Date Recorded Sex Assigned at Not on file Legal Sex 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 Gender Identity Not on file Sexual Orientation [...] She is up to 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
--- OUTSIDE RECORDS SUMMARY | 2024-11-20 10:16 | XMS_ITS | Clinical Summary ---
Author Organization [facility] Address [address] [place] [address] Care Team Providers Care Manual Control Auger Press Operator Name Role Phone PatriciaWilder andradee Cassia RODRIGUEZ Primary Care Provider [phone] Source Comments [facility],non-owned Affiliates and Associated Physician Practices is amultiple site organization consisting of ambulatory clinics and hospital sitesin [place], [place], [place] and [place]. This disclosure is being madepursuant to the Care Everywhere program and may not contain all information available regarding this patient. Last updated 18.[facility] Allergies Active Allergy Reactions Criticality Noted Date [...] document. Alwaysverify current medications with the patient. ondansetron (ZOFRAN) 8 MG tablet Take 8 mg by mouth q8h PRN (Nausea). 15 tablet 0 7 Active Vitamins/Search Engine Optimization Specialist als TABS 1 (one) tablet DAILY 7 Active escitalopram (LEXAPRO) 20 MG tablet Take 1 (one) tablet by mouth DAILY 7 Active Magnesium Aspartate 65 MG Take 64 mg by mouth BID 7 Active Calcium 500-125 MG-UNIT Take 1 tablet by mouth DAILY. 7 Active busPIRone (BUSPAR) 15 MG tablet 1 (one) tablet TID 7 Active FREESTYLE LANCETS [facility] 7 Active blood glucose (FREESTYLE LITE STRIPS) test strip 7 Active metFORMIN (GLUCOPHAGE) 1000 MG tablet 1,000 mg BID. 7 Active escitalopram (LEXAPRO) 10 MG tablet 1 (one) tablet 7 Active QUEtiapine (SEROQUEL) 100 MG tablet 1.5 (one and one-half) tablets DAILY 7 Active BASAGLAR KWIKPEN (BASAGLAR) pen 80 Units. 7 Active metoprolol succinate XL 24hr (TOPROL XL) 50 MG tablet 50 mg DAILY. 7 Active insulin pen needle (NOVOFINE) 32G X 6 MM [facility] 7 Active levothyroxine (SYNTHROID) 112 MCG tablet 150 mcg 7 Active traMADol (ULTRAM) 50 MG tablet Take 1 (one) tablet by mouth every 6 hours as needed pain 0 Active warfarin (COUMADIN) 2 MG tablet warfarin 2 mg tablet TAKE ONE TABLET BY MOUTH ONCE DAILY AT BEDTIME Active rosuvastatin (CRESTOR) 20 MG tablet Take 20 mg by mouth once daily 0 Active lisinopril (PRINIVIL;ZEST RIL) 5 MG tablet lisinopril 5 mg tablet TAKE 1 TABLET BY MOUTH ONCE DAILY Active albuterol HFA (PROVENTIL; VENTOLIN; PROAIR) 108 (90 Base) MCG/ACT inhaler Inhale 1 puff by mouth every 4 hours as needed Active dilTIAZem ER 24hr (TIAZAC) 120 MG capsule Take 1 (one) capsule by mouth once daily 2 Active ADMELOG SOLOSTAR 100 UNIT/ML pen Inject 9 (nine) Units subcutaneously 3 times daily 2 Active lisinopril (PRINIVIL;ZEST RIL) 5 MG tablet Take 1 (one) tablet by mouth once daily Active pravastatin (PRAVACHOL) 40 MG tablet Take 40 mg by mouth once daily 2 Active Basaglar KwikPen (BASAGLAR) pen Inject 80 Units subcutaneously 2 times daily Active metoprolol succinate XL 24hr (TOPROL XL) 25 MG tablet Take 1 (one) tablet by mouth once daily 2 Active Fluocinonide 0.1 %Indications:O ther psoriasis Apply to psoriasis on arms, legs and torso twice daily. 30 days supply. 120 g 2 2 Active hydrocortisone (Hytone) 2.5 % creamIndicatio ns:Other psoriasis Apply to face twice daily. 30 days supply. 30 g 4 2 Active Cosentyx Sensoready, 300 MG, 150 MG/ML SOAJ penIndications :Other psoriasis INJECT 2 PENS SUBCUTANEOUSLY EVERY 28 DAYS 2 mL 11 3 Active Active Problems Problem Noted Date Diagnosed Date Atrial fibrillation 05/31/2017 Aortic aneurysm 05/31/2017 Chronic obstructive lung disease 05/31/2017 Type 2 diabetes mellitus 05/31/2017 HTN (hypertension), benign 05/31/2017 Sleep apnea 05/31/2017 Psoriatic arthritis 05/31/2017 Arthropathic psoriasis 03/07/2017 Primary generalized (osteo)arthritis 03/07/2017 Primary osteoarthritis involving multiple joints 03/07/2017 Other buttermaker helper (current) drug therapy 7 Other psoriasis 10/14/2016 [...] on file Legal Sex Female 5:19 PM FACTORY ENGINEER Gender Identity Not on file Sexual Orientation [...] exists COVID-19 VACCINE ( - season) 2024 DEPRESSION SCREENING 07/01/2024 DIABETES - URINE PROTEIN SCREENING 07/01/2024 INFLUENZA VACCINE (Season Ended) 2025 HEPATITIS C SCREENING Completed 03/04/2020, 017 HEPATITIS B VACCINE Aged Out No longe r eligible based on patient's age to complete this topic HIB VACCINE Aged Out No longer eligi ble based on patient's age to complete this topic HPV VACCINE Aged Out No longer eligi ble based on patient's age to complete this topic MENINGOCOCCAL (Group B) VACCINE SHARED DECISION-MAKING Aged Out No longer eligible based on patient's age to complete this topic MENINGOCOCCAL GROUPS A/C/Y/W VACCINE Aged Out No longer eligible based on patient's age to complete this topic Procedures Procedure Name Priority Date/Time Associated Diagnosis Comments COMPREHENSIVE METABOLIC PANEL Routine 06/19/2022 3:03 PM FACTORY ENGINEER Other buttermaker helper (current) drug therapy HEPATITIS C AB W/RFLX TO HCV RNA QN PCR 03/04/2020 9:54 AM CDT from Last 3 Months or Most Recently Relevant to Health Maintenance Results * (ABNORMAL) COMPREHENSIVE METABOLIC PANEL (06/19/2022 3:03 PM FACTORY ENGINEER) Glucose 102(H) 65 - 99 mg/dL [facility] [...] 29 U/L [facility] Comment: Test Performed at: [facility] [id number] [place] [address] ISABELLA RODRIGUEZ DO,MPH Blood BLOOD SPECIMEN / Unknown 06/19/2022 3:03 PM FACTORY ENGINEER 06/19/2022 3:03 PM FACTORY ENGINEER us Pastora SALDIVAR LAB - CHEMISTRY ORDERABLES F inal Result Performing Organization Address [facility] Co de Phone Number [address] [phone] [place] [address] * HEPATITIS C AB W/RFLX TO HCV RNA QN PCR (03/04/2020 9:54 AM CDT) Hepatitis C Antibody NON-REACTI VE NON-REACT CASTRO [facility] Signal to Cut-Off 0.03 <1.00 [facility] Comment: HCV antibody was non-reactive. There is no laboratory evidence of HCV infection. In most cases, no further action is required. However, if recent HCV exposure is suspected, a test for HCV RNA (test code 51959) is suggested. For additional information please refer to http://education.Foursquare/faq/UVV30p9 (This link is being provided for informational/ educational purposes only.) Test Performed at: [facility] [id number] [facility] [place] [address] ISABELLA RODRIGUEZ DO,MPH 03/04/2020 9:54 AM CDT 03/04/2020 9:59 AM CDT Stephy Fitzpatrick MD LAB - CHEMISTRY ORDERABLES Fi nal Result Performing Organization Address [facility] Co de Phone Number [address] [phone] [place] [address] from Last 3 Months or Most Recently Relevant to Health Maintenance Insurance MEDICARE MEDICAID - OUT OF STATE Care Teams Manual Control Auger Press Operator Relationship Specialty Start Date End Date John Gomez DO [address] [place] [address] PCP - General 04/11/21
--- OUTSIDE RECORDS SUMMARY | 2024-11-20 10:16 | XMS_ITS | Clinical Summary ---
Author Organization [facility] Address [address] [facility] [place] [address] Care Team Providers Care Healthcare Economics Manager Name Role Phone Lane Ring MD [...] daily as needed . 7 Active Insulin Gaston, Disposable, (NOVOFINE 32) 32 gauge x 1/4 [...] (1 - Tdap) 11/14/1975 PNEUMOCOCCAL VACCINE 50+ YEARS (1 of 2 - PCV) 11/13/18 76 BREAST CANCER SCREENING 1996 COLORECTAL SCREENING 2001 Colorectal Cancer Screening 2001 FIT-DNA Q 3 years 2001 FIT/FOBT Q 1 year 2001 Flex Sig/CT Colonography Q 5 years 2001 ZOSTER VACCINE (1 of 2) 2006 RSV VACCINE (60+ or ) (1 - Risk 60-74 years 1-dose series) 2016 OSTEOPOROSIS SCREENING 2021 INFLUENZA VACCINE (#1) 2024 Insurance [facility] MEDICAID Care Teams Healthcare Economics Manager Relationship Specialty Start Date End Date Lane Ring MD [address] [place] [address] PCP - General Internal Medicine 12/17/17
--- OUTSIDE RECORDS SUMMARY | 2024-11-20 10:16 | XMS_ITS | Encounter Summary ---
Author Organization [facility] Address [address] [place] [address] Care Team Providers Care Ukrainian Folk Arts Instructor Name Role Phone John Gomez DO Primary Care Provider [phone] Reason for Visit * Reason Onset Date Comments MEDICATION REFILL 07/20/2022 Encounter Details Date Type Department Care Team (Late st Contact Info) Description 07/20/2022 Refill [facility] [address] [place] [address], [place] [address] Pastora Roy PA [address] [place] [address] [address] [place] [address] MEDICATION REFILL Social History Tobacco Use Types Packs/Day Years Used Date Smoking Tobacco: Never Smokeless Tobacco: Never Alcohol Use Standard Drinks/Week Comments No 0 (1 standard drink = 0.6 oz pur e alcohol) Comments No Sex and Gender Information Value Date Recorded Sex Assigned at Not on file Legal Sex Female 5:19 PM PUPPY TRAINER Gender Identity Not on file Sexual Orientation Not on file documented as of this encounter Plan of Treatment Not on file documented as of this encounter Visit Diagnoses Diagnosis Other psoriasis documented in this encounter Care Teams Ukrainian Folk Arts Instructor Relationship Specialty Start Date End Date John Gomez DO [address] [place] [address] PCP - General 04/11/21 documented as of this encounter
== END 2024-11-20 10:11 | disposition home or self-care (01) ==
PROVIDERS: PCP Internal Medicine; Visit Provider Urology
DX: N20.0 Calculus of kidney (principal)
CPT/HCPCS: 74018

== ENCOUNTER 2025-03-26 12:27 | Outpatient (CLI) | payer MEDICARE, MEDICAID, SELFPAY ==
--- NOTE | ~2025-03-26 | CT_ITS ---
CTA CHEST CT ABDOMEN PELVIS CLINICAL HISTORY: Aneurysm of ascending aorta . COMPARISON: CT chest abdomen and pelvis 07/05/2024 TECHNIQUE: Helical CT performed from thoracic inlet to symphysis pubis IV contrast information not listed in PACS Coronal, sagittal reformats. Multiplanar MIPS CT images acquired with automatic exposure control for dose reduction DLP: 1582 mGy-cm FINDINGS: CHEST- Thoracic Aorta: No dissection. Unchanged fusiform ectasia 4.0 cm maximal transverse diameter in true orthogonal plane. Severe attenuation left innominate vein between junction of clavicle with manubrium and aortic arch. Consequent collateral veins. Pulmonary arteries: Mildly dilated. No PE. Lungs/Pleura: Clear. Heart: Mild cardiomegaly. Tracheobronchial tree: Patent. Nodes: No enlarged nodes. Bones: No acute bony abnormality. Soft tissues: Unremarkable. ABDOMEN/PELVIS- Liver: Cirrhosis. Enlarged Gallbladder: Removed. Spleen: Unremarkable. Pancreas: Atrophic. Adrenal glands: Large adenoma right side. Kidneys: Right kidney- No hydronephrosis. No renal stones. Left kidney- No hydronephrosis. A few small stones. Distal esophagus/stomach: Unremarkable. Small bowel loops: Normal caliber and wall thickness. Colon: Large rectal stool ball. Large stool volume. Normal caliber and wall thickness. Normal RLQ appendix. Nodes: No enlarged nodes. Peritoneum: No ascites. No free air. Urinary bladder: Unremarkable. Uterus: Removed. Adnexa: No masses. Bones: No acute bony abnormality. Soft tissues: Unremarkable. Abdominal aorta: Unremarkable. Atherosclerotic disease. IVC: Unremarkable. Main portal vein, SMV: Patent. IMPRESSION: CHEST- 1. No acute cardiopulmonary findings. 2. Thoracic aorta unchanged in size, just meeting criteria for ectasia at 4.0 cm. Fusiform configuration. ABDOMEN/PELVIS- 1. No acute abdominopelvic findings. 2. Large rectal stool ball and constipation. Impaction not excluded. 3. Additional findings as above. Reviewed, dictated and finalized at location R. IMPRESSION: CHEST- 1. No acute cardiopulmonary findings. 2. Thoracic aorta unchanged in size, just meeting criteria for ectasia at 4.0 cm. Fusiform configuration. ABDOMEN/PELVIS- 1. No acute abdominopelvic findings. 2. Large rectal stool ball and constipation. Impaction not excluded. 3. Additional findings as above.
--- OUTSIDE RECORDS SUMMARY | 2025-03-26 12:31 | XMS_ITS | Encounter Summary ---
Author Organization [facility] Address [address] [place] [address] Care Team Providers Care Appeals And Generalist Clerk Name Role Phone PatriciaWildere Cassia RODRIGUEZ Primary Care Provider [phone] Encounter Details Date Type Department Care Team (Late st Contact Info) Description 07/18/2021 Telephone [facility] [address] [facility], [place] [address] Pastora Roy PA [facility] 3 [place] [id number] Social History Tobacco Use Types Packs/Day Years Used Date Smoking Tobacco: Never Smokeless Tobacco: Never Alcohol Use Standard Drinks/Week Comments No 0 (1 standard drink = 0.6 oz pur e alcohol) Comments No Sex and Gender Information Value Date Recorded Sex Assigned at Not on file Legal Sex Female 5:19 PM DRY STARCH OPERATOR Gender Identity Not on file Sexual Orientation [...] She is up to date on labs STARCH OPERATOR * Telephone Encounter - Pastora Roy PA - 07/18/2021 2:46 PM CST Patient called for refill cosentyx Sent to [facility] She has follow up in August She is up to date on labs STARCH OPERATOR documented in this encounter Plan of Treatment Not on file documented as of this encounter Visit Diagnoses Diagnosis Other psoriasis documented in this encounter Care Teams Appeals And Generalist Clerk Relationship Specialty Start Date End Date John Gomez DO [address] [place] [id number] PCP - General 04/11/21 documented as of this encounter
--- OUTSIDE RECORDS SUMMARY | 2025-03-26 12:31 | XMS_ITS | Data Portability ---
Author Organization [place] - [facility] OFFICE Address [address] [place] [address] Care Team Providers Care Child Nutrition Director Name Role Phone KULWINDER BENSON Primary Care [...] current medications, and medical follow-up as noted. [email or web address] Not available 11/01/2021 12:15:18 01/03/2022 01/03/2022 Discussed with patient findings, diagnosis, and prognosis. Discussed evaluation and treatment options including risks and benefits with patient, and patient expressed understanding. The following interventions were recommended: heart healthy low-fat, low-sodium diet, avoid strenuous exercise pending completion of cardiovascular evaluation,mainta in appropriate weight, continue current medications, and medical follow-up as noted. [email or web address] Not available 01/03/2022 18:03:43 02/14/2022 02/14/2022 Discussed with patient findings, diagnosis, and prognosis. Discussed evaluation and treatment options including risks and benefits with patient, and patient expressed understanding. The following interventions were recommended: heart healthy low-fat, low-sodium diet, avoid strenuous exercise pending completion of cardiovascular evaluation,mainta in appropriate weight, continue current medications, and medical follow-up as noted. [email or web address] Not available 02/14/2022 16:02:12 07/18/2022 07/18/2022 Discussed with patient findings, diagnosis, and prognosis. Discussed evaluation and treatment options including risks and benefits with patient, and patient expressed understanding. The following interventions were recommended: heart healthy low-fat, low-sodium diet, continue regular exercise,maintain appropriate weight, continue current medications, and medical follow-up as noted. [email or web address] Not available 07/18/2022 15:58:18 11/14/2022 11/14/2022 Discussed with patient findings, diagnosis, and prognosis. Discussed evaluation and treatment options including risks and benefits with patient, and patient expressed understanding. The following interventions were recommended: heart healthy low-fat, low-sodium diet, continue regular exercise,maintain appropriate weight, continue current medications, and medical follow-up as noted. [email or web address] Not available 11/14/2022 14:46:24 Plan of Treatment Reminders Order Date Submit Date Provider Last Modified By Organization Details Last Modified Time Details Appointments None recorded. Lab None recorded. Referral None recorded. Procedures None recorded. Surgeries None recorded. Imaging None recorded. Medication Orders pravastatin 40 mg tablet 2022 023 [facility] [address] [facility], [facility], [place], [address], 3 15:16:09 aspirin 81 mg tablet,brooklyn yed release [email or web address] [facility] [place], [address], 3 11:32:36 furosemide 40 mg tablet [address] [facility] [address] [facility] [place], [address], 3 15:11:23 furosemide 20 mg tablet [address] [facility], [address] [place], [address], 2 16:27:22 potassium chloride ER 10 mEq tablet,exte nded release 2021 [address] [facility] [address] [facility], [place], [address], 15:56:08 icosapent ethyl 1 gram capsule [address] [facility], [address] [facility], [place], [address], 14:59:33 Patient TargetsNo targets recorded. Patient Instructions Encounter Date Encounter Id Patient Instructions Last Modified By Organization Details Last Modified Time 11/01/2021 [id number] learning about type 2 diabetes [email or web address] Not available 11/01/2021 12:27:21 type 2 diabetes: care instructions [email or web address] Not available 11/01/2021 12:27:21 high cholesterol : care instructions [email or web address] Not available 11/01/2021 12:27:20 learning about low-fat eating [email or web address] Not available 11/01/2021 12:27:21 chronic obstructive pulmonary disease (COPD): care instructions [email or web address] Not available 11/01/2021 12:27:21 learning about copd and how to prevent lung infections [email or web address] Not available 11/01/2021 12:27:21 When You Want to Lose Weight: Care Instructions [email or web address] Not available 11/01/2021 12:27:21 sleep apnea: car e instructions [email or web address] Not available 11/01/2021 12:27:20 atrial fibrillation: care instructions [email or web address] Not available 11/01/2021 12:27:20 hypothyroidism: care instructions [email or web address] Not available 11/01/2021 12:27:21 01/03/2022 [id number] learning about type 2 diabetes [email or web address] Not available 01/03/2022 18:04:53 type 2 diabetes: care instructions [email or web address] Not available 01/03/2022 18:04:53 high cholesterol : care instructions [email or web address] Not available 01/03/2022 18:04:53 learning about low-fat eating qfunelx22 Not available 01/03/2022 18:04:53 chronic obstructive pulmonary disease (COPD): care instructions dofzwku95 Not available 01/03/2022 18:04:53 learning about copd and how to prevent lung infections [email or web address] Not available 01/03/2022 18:04:53 When You Want to Lose Weight: Care Instructions [email or web address] Not available 01/03/2022 18:04:53 leg and ankle edema: care instructions Not available 01/03/2022 18:04:53 sleep apnea: car e instructions alaukxn73 Not available 01/03/2022 18:04:53 atrial fibrillation: care instructions [email or web address] Not available 01/03/2022 18:04:52 hypothyroidism: care instructions [email or web address] Not available 01/03/2022 18:04:53 02/14/2022 [id number] learning about type 2 diabetes [email or web address] Not available 02/14/2022 16:38:13 type 2 diabetes: care instructions [email or web address] Not available 02/14/2022 16:38:13 high cholesterol : care instructions [email or web address] Not available 02/14/2022 16:38:13 learning about low-fat eating [email or web address] Not available 02/14/2022 16:38:13 chronic obstructive pulmonary disease (COPD): care instructions [email or web address] Not available 02/14/2022 16:38:14 learning about copd and how to prevent lung infections [email or web address] Not available 02/14/2022 16:38:13 When You Want to Lose Weight: Care Instructions [email or web address] Not available 02/14/2022 16:38:13 leg and ankle edema: care instructions clvqiqv34 Not available 02/14/2022 16:38:13 sleep apnea: car e instructions [email or web address] Not available 02/14/2022 16:38:13 atrial fibrillation: care instructions [email or web address] Not available 02/14/2022 16:38:14 hypothyroidism: care instructions [email or web address] Not available 02/14/2022 16:38:13 07/18/2022 [id number] learning about type 2 diabetes Not available 07/18/2022 16:12:12 type 2 diabetes: care instructions [email or web address] Not available 07/18/2022 16:12:12 high cholesterol : care instructions [email or web address] Not available 07/18/2022 16:12:12 learning about low-fat eating [email or web address] Not available 07/18/2022 16:12:12 chronic obstructive pulmonary disease (COPD): care instructions [email or web address] Not available 07/18/2022 16:12:12 learning about copd and how to prevent lung infections vimomzx23 Not available 07/18/2022 16:12:12 When You Want to Lose Weight: Care Instructions Not available 07/18/2022 16:12:12 leg and ankle edema: care instructions [email or web address] Not available 07/18/2022 16:12:12 sleep apnea: car e instructions Not available 07/18/2022 16:12:12 atrial fibrillation: care instructions [email or web address] Not available 07/18/2022 16:12:12 hypothyroidism: care instructions [email or web address] Not available 07/18/2022 16:12:12 11/14/2022 [id number] learning about type 2 diabetes [email or web address] Not available 11/14/2022 15:16:03 type 2 diabetes: care instructions [email or web address] Not available 11/14/2022 15:16:03 high cholesterol : care instructions [email or web address] Not available 11/14/2022 15:16:03 learning about low-fat eating ahulsfs51 Not available 11/14/2022 15:16:03 chronic obstructive pulmonary disease (COPD): care instructions [email or web address] Not available 11/14/2022 15:16:03 learning about copd and how to prevent lung infections izrjiey85 Not available 11/14/2022 15:16:03 When You Want to Lose Weight: Care Instructions [email or web address] Not available 11/14/2022 15:16:04 leg and ankle edema: care instructions [email or web address] Not available 11/14/2022 15:16:03 sleep apnea: car e instructions [email or web address] Not available 11/14/2022 15:16:03 atrial fibrillation: care instructions Not available 11/14/2022 15:16:03 hypothyroidism: care instructions [email or web address] Not available 11/14/2022 15:16:04 Reason for Referral [...] observ ation record ed. [facility] [facility] [address], [place], [address], 02/13/2022 14:57:12 02/14/20 22 02/07/2022 US, echoc [...] Name and Address Organization Details Recorded Time Atrial fibrillatio n 15002193 Active 2016 LAURA Dela Cruz [facility] 7 14:07:42 Benign essential hypertensio n 8657052 Active 2016 LAURA Dela Cruz [facility] 7 14:07:54 Aortic aneurysm 90968059 Active 2016 Benjamin Luljeremy null, [place] - [facility] 7 14:08:06 Hypothyroid ism 29113489 Active 2016 Sourav Mccartyjeremy [place] - [facility] 7 14:08:21 Type 2 diabetes mellitus 16591116 Active 2016 Benjamin Lulje[place]y [place] [facility] 7 14:08:37 Chronic obstructive pulmonary disease 83062902 Active 2016 Benjamin Lul[place]y [place] [facility] 7 14:08:53 Obstructive sleep apnea syndrome 18655162 Active 2016 Benjamin Lul[place]y [place] [facility] 7 14:09:07 Obesity 756489947 Active 2016 Benjamin Lul[place]y [place] [facility] 7 14:09:43 Bipolar disorder 14734774 Active 2016 Benjamin Lul[place] [facility] 7 14:09:53 Psoriatic arthritis 484717316 Active 2016 Sourav Mccartyjeremy [place] [facility] 7 14:10:13 Asthma 684549831 Active 2016 Ginajhony [place] [facility] 7 11:48:21 Degeneratio n of interverteb ral disc 36752932 Active 2016 Ginadora Guy [place] [facility] 7 11:48:48 Depressive disorder 29642821 Active 2016 Ginadora [place] [facility] 7 11:48:59 Dyspnea 440862367 Active 2016 Ginad[place] [facility] 7 11:51:25 Edema 249488677 Active 2016 Gin[place] [facility] 7 11:51:31 Rectal hemorrhage 89776609 Active 2016 Ginadora Guy [place] [facility] 7 11:52:02 Congestive heart failure 77090128 Active 2016 Franco Lopes [place], [place] - [facility] 7 13:45:14 Urine culture - Proteus 493105809 Active 2016 Franco Lopes [facility] 7 13:19:17 Hypercalcem ia 82640805 Active 2017 Franco Lopes [facility] 8 11:49:10 Pain in right lower limb 222468081 Active 2017 Franco Lopes [facility] 8 16:22:02 Hyperlipide javed 04318981 Active 2017 Franco Lopes [facility] 8 16:55:36 Dyspnea on exertion 86267352 Active 2020 Franco Lopes [facility] 1 15:58:43 Coronary arterioscle rosis 94858744 Active 2020 Cardiac cath Mar 2021 25-50% shira powell [facility] 1 18:35:37 Heart failure with normal ejection fraction 563985337 Active 2021 Franco Lopes [facility] 2 14:54:17 Edema of lower extremity 177717971 Active 2021 Franco Lopes [facility] 2 18:04:31 Problem Notes None recorded. Procedures Surgical History Date Name Laterality Status Provider Name and Address Organization Details Recorded Time Unlisted px foot/toes completed [facility] 06/03/2017 11:50:41 Hysterectomy completed [facility] 06/03/2017 11:50:47 Hernia Repair completed [facility] 06/03/2017 11:50:52 Cholecystectomy completed [facility] 06/03/2017 11:50:57 Imaging Results None recorded. Procedure Notes None recorded. Medical Equipment None Reported. Allergies Allergen ID Allergen Name Allergen Category Reaction Reaction Severity Criticality Documentation Date Start Date Code Code System Note Provider Name and Address Organization Details Recorded Time 5532 cefuroxim e Not available Not available Not available Not available 05/31/2017 2194 RxNorm Sourav Mesto [facility], [facility] 7 14:14:23 5533 ciproflox acin medicatio n Not available Not available Not available 05/31/2017 2551 RxNorm Sourav Mesto [facility], [facility] 7 14:14:34 5534 citalopra m medicatio n Not available Not available Not available 05/31/2017 2556 RxNorm Benjamin Mesto [facility], [facility] 7 14:14:54 5535 codeine medicatio n Not available Not available Not available 05/31/2017 2670 RxNorm Sourav Mesto [facility], [facility] 7 14:15:06 5536 erythromy ricci medicatio n Not available Not available Not available 05/31/2017 4053 RxNorm Sourav Mesto [facility], [facility] 7 14:15:15 5537 levofloxa ricci medicatio n Not available Not available Not available 05/31/2017 01325 RxNorm Sourav Mesto [facility], [facility] 7 14:15:25 5538 Substance with sulfonami de structure and antibacte rial mechanism of action (substanc e) medicatio n Not available Not available Not available 05/31/2017 94853 8003 SNOMED Sourav Diaz [facility] 7 14:15:33 5539 theophyll ine medicatio n Not available Not available Not available 05/31/2017 74003 RxNorm Sourav Mccartyto [facility], [facility] 7 14:16:31 Medications Name Sig Start Date [...] completed Not Available Not Available Not Available FreeStyle Lancets 28 gauge 09/12 completed Not Available Not [...] DAYS 11/01 completed pt no longer takes nj [...] 06/21 completed Patient to stop Vit D. rios [id number] yahaira to call pt [id number]. Not Available Not Available Not Available hydrocort [...] Not Available No t Available Vitamin D3 50711 1 q week for 8 weeks 09/12 [...] No t Available Lite Touch Insulin Pen [place] 31 gauge x 3/16 09/12 completed Not Available Not Available Not [...] Ultra-Fin e 1 mL 31 gauge x 5/16 09/12 completed Not Available Not Available Not Available Cosentyx Pen 300 mg/2 pens (150 mg/mL) subcutane ous pen injector INJECT 2 PENS SUBCUTAN EOUSLY ONCE EVERY [...] Available TRUEplus Pen Needle 31 gauge x 516 USE DIRECTED FOR BLOOD SUGAR active Not [...] Not Available No t Available Fluarix Quad 7541-4491 (PF) 60 mcg (15 mcg x 4)/0.5 [...] in Arterial blood by Pulse oximetry Systolic And Diastolic Provider Name and Address Organization Details Last Updated DateTime 3 172.72 cm 48.4 kg/m2 842272. 37 g 88 /min 16 /min 93 % 93 % 132/82 mm[Hg] Cali Pandey [facility] 3 14:39:23 Date Recorded Body height Body mass index (BMI) Body weight Heart rate Oxygen saturation Oxygen saturation in Arterial blood by Pulse oximetry Systolic And Diastolic Provider Name and Address Organization Details Last Updated DateTime 2 172.72 cm 49 kg/m2 708377. 74 g 88 /min 94 % 94 % 142/82 mm[Hg] Joycelyn Rosendo [facility] 2 11:28:43 Date Recorded Body height Body mass index (BMI) Body weight Oxygen saturation Oxygen saturation in Arterial blood by Pulse oximetry Heart rate Systolic And Diastolic Provider Name and Address Organization Details Last Updated DateTime 3 172.72 cm 43.7 kg/m2 254478. 52 g 92 % 92 % 78 /min 122/84 mm[Hg] TAMMY VISHAL [facility] 3 14:22:56 Date Recorded Body height Body mass index (BMI) Body weight Heart rate Oxygen saturation Oxygen saturation in Arterial blood by Pulse oximetry Systolic And Diastolic Provider Name and Address Organization Details Last Updated DateTime 2 172.72 cm 50.9 kg/m2 797148. 44 g 95 /min 94 % 94 % 148/82 mm[Hg] Cali Pandey [facility] 2 15:50:44 Date Recorded Body height Body mass index (BMI) Body weight Heart rate Respiratory rate Oxygen saturation Oxygen saturation in Arterial blood by Pulse oximetry Inhaled oxygen flow rate Systolic And Diastolic Provider Name and Address Organization Details Last Updated DateTime 2 172.72 cm 50.8 kg/m2 037148. 85 g 102 /min 16 /min 91 % 91 % 2 L/min 132/68 mm[Hg] Cali Pandey [facility] 2 15:24:30 Social History Question Answer Notes LastModified by Organizat ion Details LastModified Time Tobacco Smoking Status Never Smoker Second hand smoker Not Available [facility] 05/03/2020 03:30:41 What Is Your Level Of Caffeine Consumption? Occasional [id number] Information not available 05/03/2020 How Much Tobacco Do You Chew? None [id number] Information not available 05/03/2020 What Type Of Diet Are You Following? DIABETIC [id number] Information not available 05/03/2020 Which Illicit Or Recreational Drugs Have You Used? No [id number] Information not available 05/03/2020 Live Alone Or With Others? Alone [email or web address] Information not available 06/03/2017 Marital Status [email or web address] Informatio n not available 06/03/2017 What Was The Date Of Your Most Recent Tobacco Screening? 12/08/2018 [id number] Information not available 05/03/2020 How Many Children Do You Have? 3 [id number] Information not available 05/03/2020 How Much Tobacco Do You Smoke? No [id number] Information not available 05/03/2020 General Stress Level Low [email or web address] Information not available 06/03/2017 How Many Years Have You Smoked Tobacco? 0 [id number] Information not available 05/03/2020 Sex: Unknown Functional Status Question Answer Note LastModified by Organizat ion Details LastModified Time What is your level of alcohol consumption? None [id number] Information not available 05/03/2020 Do you or have you ever used smokeless tobacco? Never used smokeless tobacco [id number] Information not available 05/03/2020 Do you or have you ever used e-cigarettes or vape? Never used electronic cigarettes [id number] Information not available 05/03/2020 What is your exercise level? None [id number] Information not available 05/03/2020 Mental Status None recorded. Family History Relationship Description Onset Age of this Age Resolved Age Notes LastModified by Organization Details LastModified Time Father Intracranial aneurysm hmesto Not available 2016 14:12:50 Father Heart disease Not available 2016 11:49:19 Father Myocardial infarction [email or web address] Not available 06/03 11:49:24 Mother Diabetes mellitus [email or web address] Not available 2016 11:49:36 Sister Diabetes mellitus [email or web address] Not available 2016 11:49:36 Sister Hypercholest erolemia [email or web address] Not available 2016 11:49:45 Medical History Condition Response Diabetes Y Thyroid Disease Y Atrial Fibrillation Y Sleep Apnea Y Aortic Aneurysm Y Hypertension Y COPD Y Gynecological HistoryNo gynecological history recorded. Obstetrics History GPAL:G 0 P 0 0 0 0 Past Encounters Encounter ID Performer Location Encounter Start Date Encounter Closed Date Diagnosis/Indication Diagnosis SNOMED-CT Code Diagnosis ICD10 Code Diagnosis IMO Codes Diagnosis Note [id number] Franco Lopes MD [place] [facility] [place] [address] 06/03/2017 11:08:04 06/04/2017 10:26:41 Benign essential hypertension 7968195 I10 Patient's blood pressure is well-contr olled on present medical therapy. Patient is tolerating , without difficulty , the current medication s. I have not made changes to the current regimen. Patient is advised to maintain a blood pressure diary. Patient was advised to eat a low-sodium diet (2 grams sodium or less daily). Type 2 eliazar betes mellitus 17194822 E11.59 Discussed importance of tight glycemic control to minimize cardiovasc ular disease progressio n. Atrial fibrillation 4943 6004 I48.91 EKG today with atrial fibrillati on with HR 93 bpm. Needs eventual outpatient Lexiscan to exclude ischemia as cause of afib. Resume Coumadin 2 mg qHS. Pt to call if bleeding resumes. INR in 4 days. Aortic aneurysm 62645236 I71.[address] Obstructiv e sleep apnea syndrome 18397986 G47.33 On CPAP. Congestive heart failure 32084910 I50.9 Pt with HF-pEF. Pt reports increased B LE edema since discharge and had increased to Lasix 40 mg bid 05/31/17. Increased from 40 mg bid to 80 mg bid and added metolazone 2.5 mg qd. 06/03/17. BMP 4 days. RTC 1 wk. [id number] Franco Lopes MD [place] [facility] [address] [place] [address] 06/17/2017 10:39:30 06/17/2017 16:07:22 Benign essential hypertension 5872297 I10 Patient's blood pressure is well-contr olled on present medical therapy. Patient is tolerating , without difficulty , the current medication s. I have not made changes to the current regimen. Patient is advised to maintain a blood pressure diary. Patient was advised to eat a low-sodium [...] untill digoxin level assessed. Congestive heart failure 00100089 I50.9 Pt with HF-pEF. Currently euvolemic. Pt [...] 1 week. Type 2 eliazar betes mellitus 81225343 E11.59 Discussed importance of tight glycemic control to minimize cardiovasc ular disease progressio n. Aortic aneurysm 68810363 I71.[address] Obstructiv e sleep apnea syndrome 48618104 G47.33 On CPAP. [id number] Franco Lopes MD [place] [facility] [address] [place] [place] [address] 06/26/2017 11:44:16 06/27/2017 10:04:12 Benign essential hypertension 1213946 I10 Patient's blood pressure is well-contr olled on present medical therapy. Patient is tolerating , without difficulty , the current medication s. I have not made changes to the current regimen. Patient is advised to maintain a blood pressure diary. Patient was advised to eat a low-sodium [...] 1 week. Continue digoxin. Congestive heart failure 40573221 I50.9 Pt with HF-pEF. Currently euvolemic. Pt [...] supplement . Type 2 eliazar betes mellitus 57569528 E11.59 Discussed importance of tight glycemic control to minimize cardiovasc ular disease progressio n. Aortic aneurysm 76306352 I71.[address] Heart healthy, low-fat, low-choles terol, diabetic diet, with volleyball coach consult. Obstructiv e sleep apnea syndrome 27421353 G47.33 On CPAP. Urine cult ure - Proteus 098660022 R82.79 She reports nausea for 3 weeks and bilateral inguinal discomfort for 1 week without dysuria, with reduced urine output and elevated Cr. Had urine culture 06/19/17 with >100,000 cfu/mL Proteus mirabilis. Patient needs follow-up with PCP KAYA. Began Augmentin 875/125 mg bid for 7 days. Repeat CMP for Cr and Ca/Mg in 10 days. [id number] Franco Lopes MD [place] [facility] [address] [place] [address] 07/10/2017 11:11:43 07/11/2017 10:30:51 Benign essential hypertension 9035636 I10 Patient's blood pressure is well-contr olled on present medical therapy. Patient is tolerating , without difficulty , the current medication s. I have not made changes to the current regimen. Patient is advised to maintain a blood pressure diary. Patient was advised to eat a low-sodium [...] 07/10/17 for Mg 1.1. Congestive heart failure 13034368 I50.9 Pt with HF-pEF. Currently euvolemic. Pt [...] supplement . Type 2 eliazar betes mellitus 26453947 E11.59 Discussed importance of tight glycemic control to minimize cardiovasc ular disease progressio n. Aortic aneurysm 43605571 I71.[address] Heart healthy, low-fat, low-choles terol, diabetic diet, with volleyball coach consult. Obstructiv e sleep apnea syndrome 28118942 G47.33 On CPAP. Continue. Tolerating . Urine cult ure - Proteus 529859340 R82.79 She reports nausea for 3 weeks and bilateral inguinal discomfort for 1 week without dysuria, with reduced urine output and elevated Cr. Had urine culture 06/19/17 with >100,000 cfu/mL Proteus mirabilis. Patient needs follow-up with PCP KAYA. Completed Augmentin 875/125 mg bid for 7 days. Hypercalcemia 31112859 E 83.52 Ca improved to 12.4 off Vit D and with increased hydration, but calcium remains elevated. PCP instructed to f/u with PCP. CMP/Mg in 2 weeks. [id number] MD [facility] [address] [place] [address] 08/08/2017 14:35:22 08/08/2017 16:37:44 Benign essential hypertension 9906319 I10 Patient's blood pressure is well-contr olled on present medical therapy. Patient is tolerating , without difficulty , the current medication s. I have not made changes to the current regimen. Patient is advised to maintain a blood pressure diary. Patient was advised to eat a low-sodium [...] 400 mg bid 08/08/17. Congestive heart failure 89710156 I50.9 Pt with HF-pEF. Currently euvolemic. Had [...] 11.3, M.2. Type 2 eliazar betes mellitus 64958418 E11.59 Discussed importance of tight glycemic control to minimize cardiovasc ular disease progressio n. Aortic aneurysm 76937982 I71.9 Stable on CTscan 03/27/17: fusiform aneurysm of ascending aorta 4.2x4.1 cm. Heart healthy, low-fat, low-choles terol, diabetic diet, with volleyball coach consult. Obstructiv e sleep apnea syndrome 09048040 G47.33 On CPAP. Continue. Tolerating . Urine cult ure - Proteus 366290912 R82.79 She reports nausea for 3 weeks and bilateral inguinal discomfort for 1 week without dysuria, with reduced urine output and elevated Cr. Had urine culture 06/19/17 with >100,000 cfu/mL Proteus mirabilis. Patient needs follow-up with PCP KAYA. Completed Augmentin 875/125 mg bid for 7 days. Hypercalcemia 83515680 E 83.52 Ca improved to 12.4 off Vit D and with increased hydration, but calcium remains elevated. Had 08/08/17: Ca 11.3. Pt instructed to f/u with PCP or endocrinol ogist for workup of hypercalce javed and possible parathyroi d disease. CMP/Mg in 4 weeks. Pain in ri ght lower limb [id number] M79.604 Mild edema and pain right posterior knee and leg. Obtain LE Doppler. [id number] Franco Lopes MD [place] [facility] [address] [place] [phone] 09/18/2017 14:53:43 09/25/2017 15:10:13 Essential hypertension [id number] I10 Patient's blood pressure is well-contr olled on present medical therapy. Patient is tolerating , without difficulty , the current medication s. I have not made changes to the current regimen. Patient was advised to eat a low-sodium diet (2 grams sodium or less daily). Chronic ob structive pulmonary disease 14080879 J44.9 On Oxygen 1-2 L NC Type 2 eliazar betes mellitus 37714766 E11.59 Discussed importance of tight glycemic control [...] Mg 1.4 09/11/17. Atypical chest pain 1025 58047 R07.89 Atypical. Intermitte nt chest pain which [...] GERD or diabetic gastropare sis. Aortic aneurysm 04319910 I71.[address] scan 03/27/17: fusiform aneurysm of ascending aorta 4.2x4.1 cm. Heart healthy, low-fat, low-choles terol, diabetic diet, with volleyball coach consult. Hyperlipidemia 65033449 E78.5 Needs to keep LDL less than 70, and HDL more than 40. Obtain FLP. [id number] Franco Lopes MD [place] [facility] [address] [place] [phone] 11/18/2017 16:10:22 11/18/2017 17:41:52 Atypical chest pain 198998588 R07.89 Resolved. Had Dobutamine Myocardial Perfusion Study [...] GERD or diabetic gastropare sis. Essential hypertension 94496868 I10 Patient's blood pressure is well-contr olled on present medical therapy. Patient is tolerating , without difficulty , the current medication s. I have not made changes to the current regimen. Patient was advised to eat a low-sodium diet (2 grams sodium or less daily). Atrial fibrillation 9076 6004 I48.91 Previously , EKG with atrial [...] per PCP. Chronic ob structive pulmonary disease 97166482 J44.9 On Oxygen 1-2 L NC. Needs f/u with pulm. for considerat ion of bronchodil ator therapy. Type 2 eliazar betes mellitus 19841067 E11.59 Discussed importance of tight glycemic control to minimize cardiovasc ular disease progressio n. Aortic aneurysm 37969835 I71.[address] scan 03/27/17: fusiform aneurysm of ascending aorta 4.2x4.1 cm. Needs [address] f/u as per PCP 03/2018. Heart healthy, low-fat, low-choles terol, diabetic diet, with volleyball coach consult. Hyperlipidemia 96208832 E78.5 Needs to keep LDL less than 70, and HDL more than 40. Had LDL 92 10/01/17. Patient wants to talk to PCP before starting statin. Obstructiv e sleep apnea syndrome 94278786 G47.33 On CPAP. Continue. Needs to resume while waiting on new mask. [id number] Franco Lopes MD [place] [facility] [address] [phone] 12/02/2017 16:26:52 12/02/2017 18:51:29 Atypical chest pain 561788017 R07.89 Resolved. Had Dobutamine Myocardial Perfusion Study [...] GERD or diabetic gastropare sis. Essential hypertension 41224744 I10 Patient's blood pressure is somewhat well-contr olled on present medical therapy. Patient is tolerating , without difficulty , the current medication s. I have made the following changes to the current regimen. Patient is advised to maintain a blood pressure diary. Patient was advised to eat a low-sodium [...] CMP, Mg. Chronic ob structive pulmonary disease 67929366 J44.9 On Oxygen 1-2 L NC. Needs f/u with pulm. for considerat ion of bronchodil ator therapy. Type 2 eliazar betes mellitus 10152028 E11.59 Discussed importance of tight glycemic control to minimize cardiovasc ular disease progressio n. Aortic aneurysm 53960079 I71.[address] scan 03/27/17: fusiform [...] healthy, low-fat, low-choles terol, diabetic diet, with volleyball coach consult. Hyperlipidemia 03561883 E78.5 Needs to keep LDL less than 70, and HDL more than 40. Had LDL 92 10/01/17. Began atorvastat in 20mg qHS 12/02/17. Obstructiv e sleep apnea syndrome 49923302 G47.33 On CPAP. Continue. Needs to resume while waiting on new mask. [id number] Franco Lopes MD [place] [facility] [place] [address] 01/22/2018 15:59:36 01/23/2018 18:49:41 Atypical chest pain 897792840 R07.89 Resolved. Had Dobutamine Myocardial Perfusion Study [...] GERD or diabetic gastropare sis. Essential hypertension 65816169 I10 Patient's blood pressure is somewhat well-contr olled on present medical therapy. Patient is tolerating , without difficulty , the current medication s. I have made the following changes to the current regimen. Patient is advised to maintain a blood pressure diary. Patient was advised to eat a low-sodium [...] increased Cr. Chronic ob structive pulmonary disease 90186857 J44.9 On Oxygen 1-2 L NC. Needs f/u with pulm. Type 2 eliazar betes mellitus 87670998 E11.59 Discussed importance of tight glycemic control to minimize cardiovasc ular disease progressio n. Aortic aneurysm 15786608 I71.[address] scan 03/27/17: fusiform [...] healthy, low-fat, low-choles terol, diabetic diet, with volleyball coach consult. Hyperlipidemia 95635927 E78.5 Needs to keep LDL less than 70, and HDL more than 40. Had LDL 92 10/01/17. Had 01/02/18: TC 192, HDL 30, TG 274, LDL 120, CK 21. Began atorvastat in 20mg qHS 01/22/18. FLP 1 mo. Obstructiv e sleep apnea syndrome 20633012 G47.33 On CPAP. Continue. Followed by pulmonolog ist. [id number] Franco Lopes MD [place] [facility] [address] [place] [phone] 04/02/2018 14:49:32 04/02/2018 17:14:31 Hyperlipidemia 31996026 E78.5 Needs to keep LDL less than 70, and HDL more than 40. Had LDL 92 10/01/17. Had 01/02/18: TC 192, HDL 30, TG 274, LDL 120, CK 21. Began atorvastat in 20 mg qHS 01/22/18. Had FLP 02/19/18: TG 224, LDL 72. Patient does not want to increase statin at this time. Atypical chest pain 1025 11713 R07.89 Stable. Atypical. Had Dobutamine Myocardial Perfusion [...] GERD, or diabetic gastropare sis. Essential hypertension 80470637 I10 Patient's blood pressure is well-contr olled on present medical therapy. Patient is tolerating , without difficulty , the current medication s. I have not made changes to the current regimen. Patient is advised to maintain a blood pressure diary. Patient was advised to eat a low-sodium diet (2 grams sodium or less daily). BP monitor- XL. Resumed furosemide 40 mg qd prn 12/02/17. Atrial fibrillation 4943 6004 I48.91 Today, EKG with atrial fibrillati on with HR 61 bpm. In irregularl y, irregular rhythm on exam and EKG. Coumadin changed. INR 1.9 per [facility]. Continue digoxin. Began MgOxide 07/10/17 for Mg [...] Mg 1.9. Chronic ob structive pulmonary disease 67834874 J44.9 On Oxygen 1-2 L NC. Needs f/u with pulm. Type 2 eliazar betes mellitus 96872133 E11.59 Discussed importance of tight glycemic control to minimize cardiovasc ular disease progressio n. Aortic aneurysm 48725676 I71.[address] scan 03/27/17: fusiform [...] healthy, low-fat, low-choles terol, diabetic diet, with volleyball coach consult. Obstructiv e sleep apnea syndrome 39334140 G47.33 On CPAP. Continue. Followed by pulmonolog ist. [id number] Franco Lopes MD [place] [facility] [place] [address] 10/01/2018 15:41:45 10/01/2018 17:17:11 Hyperlipidemia 39430925 E78.5 Needs to keep LDL less than [...] FLP 1 mo. Atypical chest pain 1025 94838 R07.89 Improved. Atypical. Had Dobutamine Myocardial Perfusion [...] GERD, or diabetic gastropare sis. Essential hypertension 66822779 I10 Patient's blood pressure is well-contr olled on present medical therapy. Patient is tolerating , without difficulty , the current medication s. I have not made changes to the current regimen. Patient is advised to maintain a blood pressure diary. Patient was advised to eat a low-sodium diet (2 grams sodium or less daily). BP monitor- XL. Resumed furosemide 40 mg qd prn 12/02/17. Atrial fibrillation 4943 6004 I48.91 Today, EKG with atrial fibrillati on with HR 67 bpm. In irregularl y, irregular rhythm on exam and EKG. Coumadin changed. INR 2.0 per [facility]. Continue digoxin. Began MgOxide 07/10/17 for Mg [...] HgbA1C 10.5%, Chronic ob structive pulmonary disease 82606405 J44.9 On Oxygen 1-2 L NC prn. Needs f/u with pulm. Type 2 eliazar betes mellitus 30579686 E11.59 Discussed importance of tight glycemic control to minimize cardiovasc ular disease progressio n. Aortic aneurysm 41175147 I71.[address] of chest 06/26/18: [...] healthy, low-fat, low-choles terol, diabetic diet, with volleyball coach consult. Obtain chest CT early 2019. Obstructiv e sleep apnea syndrome 42441772 G47.33 On BiPAP. Continue. Followed by pulmonolog ist. Obesity 392659264 E66.9 20 lb. weight loss recommende d over the next 2 months. Hypothyroidism 46283502 E03.9 Medication changed recently per endocrinol ogist. Had 08/2018: free T4 0.8 normal. [id number] Franco Lopes MD [place] [facility] [address] [place] [phone] 12/08/2018 15:22:53 12/08/2018 17:14:42 Hyperlipidemia 47431627 E78.5 Needs to keep LDL less than [...] gm bid 12/08/18. Atypical chest pain 1025 13314 R07.89 Improved. Atypical. Had Dobutamine Myocardial Perfusion [...] GERD, or diabetic gastropare sis. Essential hypertension 76910459 I10 Patient's blood pressure is well-contr olled on present medical therapy. Patient is tolerating , without difficulty , the current medication s. I have not made changes to the current regimen. Patient is advised to maintain a blood pressure diary. Patient was advised to eat a low-sodium diet (2 grams sodium or less daily). BP monitor- XL. Resumed furosemide 40 mg qd prn 12/02/17. Atrial fibrillation 4943 6004 I48.91 Today, EKG with atrial fibrillati on with HR 67 bpm. In irregularl y, irregular rhythm on exam and EKG. Coumadin changed. INR 1.9 per [facility]. Continue digoxin. Began MgOxide 07/10/17 for Mg [...] HgbA1C 10.5%, Chronic ob structive pulmonary disease 24701535 J44.9 On Oxygen 1-2 L NC prn. Needs f/u with pulm. Type 2 eliazar betes mellitus 98667151 E11.59 Discussed importance of tight glycemic control to minimize cardiovasc ular disease progressio n. Aortic aneurysm 90691479 I71.[address] of chest 06/26/18: [...] healthy, low-fat, low-choles terol, diabetic diet, with volleyball coach consult. Obtain chest CT early 2019. Obstructiv e sleep apnea syndrome 06356074 G47.33 On BiPAP. Continue. Followed by pulmonolog ist. Obesity 236319624 E66.9 20 lb. weight loss recommende d over the next 2 months. Hypothyroidism 60714744 E03.9 Medication changed recently per endocrinol ogist. Had 08/2018: free T4 0.8 normal. [id number] Darell Lozada MD [place] [facility] [address] [place] [phone] 04/08/2019 15:48:06 04/08/2019 16:48:51 Hyperlipidemia 05248844 E78.5 Needs to keep LDL less than [...] gm bid 12/08/18. Atypical chest pain 1025 59302 R07.89 Improved. Atypical. Had Dobutamine Myocardial Perfusion [...] GERD, or diabetic gastropare sis. Essential hypertension 74340432 I10 Patient's blood pressure is well-contr olled on present medical therapy. Patient is tolerating , without difficulty , the current medication s. I have not made changes to the current regimen. Patient is advised to maintain a blood pressure diary. Patient was advised to eat a low-sodium [...] HgbA1C 10.5%, Chronic ob structive pulmonary disease 24425131 J44.9 On Oxygen 1-2 L NC prn. Needs f/u with pulm. Type 2 eliazar hilton mellitus 68541519 E11.59 Discussed importance of tight glycemic control to minimize cardiovasc ular disease progressio n. Aortic aneurysm 12325363 I71.9 Stable. We may use 2D echo [...] healthy, low-fat, low-choles terol, diabetic diet, with volleyball coach consult. Obtain chest CT early 2019. Obstructiv e sleep apnea syndrome 75671702 G47.33 On BiPAP. Continue. Followed by pulmonolog ist. Obesity 460631330 E66.9 20 lb. weight loss recommende d over the next 2 months. Hypothyroidism 99960132 E03.9 Medication changed recently per endocrinol ogist. Had 08/2018: free T4 0.8 normal. Benign hypertension 1072 5009 I10 [id number] aRchel Maldonado MD [place] [facility] [address] [place] [address] 01/25/2020 16:04:16 01/25/2020 19:14:21 Hyperlipidemia 92629281 E78.5 Needs to keep LDL less than [...] gm bid 12/08/18. Atypical chest pain 1025 57775 R07.89 Improved. Atypical. Had Dobutamine Myocardial Perfusion [...] GERD, or diabetic gastropare sis. Essential hypertension 70299055 I10 Patient's blood pressure is well-contr olled on present medical therapy. Patient is tolerating , without difficulty , the current medication s. I have not made changes to the current regimen. Patient is advised to maintain a blood pressure diary. Patient was advised to eat a low-sodium [...] HgbA1C 10.5%, Chronic ob structive pulmonary disease 98835569 J44.9 On Oxygen 1-2 L NC prn. Needs f/u with pulm. Type 2 eliazar betes mellitus 24211565 E11.59 Discussed importance of tight glycemic control to minimize cardiovasc ular disease progressio n. Aortic aneurysm 57705007 I71.9 Stable. aorta measures 4.3 cm on [...] healthy, low-fat, low-choles terol, diabetic diet, with volleyball coach consult. Obtain chest CT early 2019. Obstructiv e sleep apnea syndrome 36625736 G47.33 On BiPAP. Continue. Followed by pulmonolog ist. Obesity 955108695 E66.9 20 lb. weight loss recommende d over the next 2 months. Hypothyroidism 38561306 E03.9 Medication changed recently per endocrinol ogist. Had 08/2018: free T4 0.8 normal. Benign hypertension 1072 5009 I10 [id number] Franco Lopes MD [place] [facility] [address] [place] [phone] 07/13/2020 14:52:41 07/13/2020 16:13:43 Hyperlipidemia 88488226 E78.5 Needs to keep LDL less than [...] patient. Obtain FLP. Atypical chest pain 1025 73947 R07.89 Atypical. Had Dobutamine Myocardial Perfusion Study 07/30/17 : Negative dobutamine stress test for ischemia. Normal LV systolic function. Abnormal stress test. Artifact noted. No previous study to compare. LVEF >60%. Consider costochond ritis, GERD, or diabetic gastropare sis. Essential hypertension 20606917 I10 Patient's blood pressure is well-contr olled on present medical therapy. Patient is tolerating , without difficulty , the current medication s. I have not made changes to the current regimen. Patient is advised to maintain a blood pressure diary. Patient was advised to eat a low-sodium [...] HgbA1C 10.5%, Chronic ob structive pulmonary disease 86436465 J44.9 Needs f/u with pulm. Type 2 eliazar betes mellitus 05306262 E11.59 Discussed importance of tight glycemic control to minimize cardiovasc ular disease progressio n. Aortic aneurysm 84682659 I71.9 Stable. aorta measures 4.3 cm on [...] healthy, low-fat, low-choles terol, diabetic diet, with volleyball coach consult. Obtain chest CTA 08/2020, delayed pending reduction in COVID-19 risk. Obstructiv e sleep apnea syndrome 72012132 G47.33 On BiPAP. Continue. Followed by pulmonolog ist. Obesity 665127378 E66.9 20 lb. weight loss recommende d over the next 2 months. Hypothyroidism 54153503 E03.9 PCP now following. Had 08/2018: free T4 0.8 normal. Obtain TSH. Dyspnea on exertion 6084 5006 R06.09 Patient presents with chest pain with atypical features and exertional dyspnea which can be an anginal equivalent . Given the history, exam findings and high cardiac risk factors, I feel additional investigat ion is warranted. I have made arrangemen ts in the near future for a [facility] Lexiscan stress nuclear test due to reduced functional capacity or conduction abnormalit y. Stress test, delayed pending reduction in COVID-19 risk. Patient had COVID-19 PCR positive 06/20/20 testing at [facility] Urgent Care. Obtain CXR PA and lateral given slowly improving dyspnea s/p COVID-19 pneumonia. The procedure was discussed with the patient, and risks, benefits, and alternativ e options were explained. Appropriat e labwork has not been performed recently, therefore I have made arrangemen ts for further testing: INR, CMP, Mg, CBC, FLP, TSH. I have asked the patient to curtail exercise and activities until our investigat ion is complete. I have made the following adjustment s to the present medical regimen.Horan d 17 lb weight gain. Had Dobutamine Myocardial Perfusion Study 07/30/17 : Negative dobutamine stress test for ischemia. Normal LV systolic function. Abnormal stress test. Artifact noted. No previous study to compare. LVEF >60%. [id number] Franco Lopes MD [address] [place] [address] 11/30/2020 14:36:37 12/21/2020 11:37:12 Dyspnea on exertion 98046612 R06.09 Patient presents with chest pain with atypical features and exertional dyspnea which can be an anginal equivalent . Given the history, exam findings and high cardiac risk factors, I feel additional investigat ion is warranted. I have made arrangemen ts [facility] the [facility] dobutamine stress nuclear test due to reduced functional capacity or conduction abnormalit y. Obtain echo to evaluate for structural /functiona l disease. The procedure was discussed with the patient, and risks, benefits, and alternativ e options were explained. Appropriat e labwork has not been performed recently, therefore I have made arrangemen ts for further testing: CPK, CMP, Mg, CBC, FLP, TSH. I have asked the patient to curtail exercise and activities until our investigat ion is complete. I have made the following adjustment s to the present medical regimen. Had 14 lb weight gain. Had Dobutamine Myocardial Perfusion Study 07/30/17 : Negative dobutamine stress test for ischemia. Normal LV systolic function. Abnormal stress test. Artifact noted. No previous study to compare. LVEF >60%. Hyperlipidemia 92856860 E78.5 Needs to keep LDL less than [...] Mg, CPK, TSH. Atypical chest pain 1025 85665 R07.89 Exertional . Obtain stress test as above. Had Dobutamine Myocardial Perfusion Study 07/30/17 : Negative dobutamine stress test for ischemia. Normal LV systolic function. Abnormal stress test. Artifact noted. No previous study to compare. LVEF >60%. Consider costochond ritis, GERD, or diabetic gastropare sis. Essential hypertension 74729441 I10 Patient's blood pressure is somewhat well-contr olled on present medical therapy. Patient is tolerating , without difficulty , the current medication s. I have made the following changes to the current regimen. Patient is advised to maintain a blood pressure diary. Patient was advised to eat a low-sodium [...] and HTN. Chronic ob structive pulmonary disease 93434785 J44.9 Needs f/u with pulm. Type 2 eliazar betes mellitus 76959672 E11.59 Discussed importance of tight glycemic control to minimize cardiovasc ular disease progressio n. Aortic aneurysm 40913902 I71.9 Stable. Aorta measures 4.3 cm on [...] healthy, low-fat, low-choles terol, diabetic diet, with volleyball coach consult. Optimize BP and cholestero l control., Obtain next chest CTA 11/23/2021. Obstructiv e sleep apnea syndrome 97820073 G47.33 On BiPAP. Continue. Followed by pulmonolog ist. She had titration study. Obesity 146786486 E66.9 20 lb. weight loss recommende d over the next 2 months. Hypothyroidism 56177781 E03.9 PCP now following. Had 08/2018: free T4 0.8 normal. Obtain TSH. 48409 Franco Lopes MD [place] [facility] [address] [place] [address] 02/22/2021 12:36:22 02/22/2021 14:34:49 Dyspnea on exertion 53885691 R06.09 Patient presents with chest pain with atypical features and exertional dyspnea which can be an anginal equivalent . Given the history, exam findings and high cardiac risk factors, I feel additional investigat ion is warranted. Had dobutamine [...] . The patient agrees to proceed at [facility]. #####Stop Coumadin 5 days prior to the procedure. Reduce Basaglar to 1/2 usual dose PM evening before [facility], and hold in AM of [facility]. The procedure was discussed with the patient, and risks, benefits, and alternativ e options were explained. Had 14 lb weight gain in recent [...] weeks, so she needs to resume. Hyperlipidemia 29267397 E78.5 Needs to keep LDL less than [...] 160, LDL 66 Atypical chest pain 1025 51054 R07.89 Exertional . Had dobutamine nuclear stress [...] GERD, or diabetic gastropare sis. Essential hypertension 75327060 I10 Patient's blood pressure is somewhat well-contr olled on present medical therapy. Patient is tolerating , without difficulty , the current medication s. I have made the following changes to the current regimen. Patient is advised to maintain a blood pressure diary. Patient was advised to eat a low-sodium [...] and HTN. Chronic ob structive pulmonary disease 61812956 J44.9 Needs f/u with pulm. Type 2 eliazar betes mellitus 75923375 E11.59 Discussed importance of tight glycemic control to minimize cardiovasc ular disease progressio n. Aortic aneurysm 02999509 I71.9 Stable. Aorta measures 4.3 cm on [...] healthy, low-fat, low-choles terol, diabetic diet, with volleyball coach consult. Optimize BP and cholestero l control., Obtain next chest CTA 11/23/2021. Obstructiv e sleep apnea syndrome 06582355 G47.33 On BiPAP. Continue. Followed by pulmonolog ist. She had titration study. Obesity 685170409 E66.9 20 lb. weight loss recommende d over the next 2 months. Hypothyroidism 28841501 E03.9 PCP now following. Had 08/2018: free T4 0.8 normal. Obtained normal TSH 12/2020. [id number] Darell Lozada MD [place] [facility] [address] [place] [address] 04/04/2021 15:24:28 04/04/2021 16:14:58 Dyspnea on exertion 15196831 R06.09 with negative cathOSA treatment and follow up Hyperlipidemia 63495236 E78.5 Needs to keep LDL less than [...] 160, LDL 66 Atypical chest pain 1025 99246 R07.89 Exertional . Had dobutamine nuclear stress [...] GERD, or diabetic gastropare sis. Essential hypertension 19127919 I10 Seems to be well compensate d [...] bid 08/08/17. Chronic ob structive pulmonary disease 07161145 J44.9 Needs f/u with pulm. Type 2 eliazar betes mellitus 26896891 E11.59 Discussed importance of tight glycemic control to minimize cardiovasc ular disease progressio n. Aortic aneurysm 00362442 I71.9 Stable. Aorta measures 4.3 cm on [...] healthy, low-fat, low-choles terol, diabetic diet, with volleyball coach consult. Optimize BP and cholestero l control., Obtain next chest CTA 11/23/2021. Obstructiv e sleep apnea syndrome 49600692 G47.33 On BiPAP. Continue. Followed by pulmonolog ist. She had titration study. Obesity 732171846 E66.9 20 lb. weight loss recommende d over the next 2 months. Hypothyroidism 01609751 E03.9 PCP now following. Had 08/2018: free T4 0.8 normal. Obtained normal TSH 12/2020. [id number] Franco Lopes MD [facility] [address] [place] [address] 08/30/2021 12:39:30 08/30/2021 15:11:59 Dyspnea on exertion [id number] R06.09 ALIVIA treatment and follow up Hyperlipidemia 74527847 E78.5 Needs to keep LDL less than [...] in the past. Atypical chest pain 1025 62023 R07.89 Exertional . Had catheteriz ation straight - procedure (PROC) 03/27/21:Mi ld CAD (mLAD 25% stenosis, ostial D1 50%). Normal left ventricula r function. Elevated left ventricula r end-diasto lic pressure. Had dobutamine nuclear stress 01/10/21: positive for ischemia, with partially reversible defect in kai-api kannna and septal areas (new c/w 07/30/17), LVEF [...] GERD, or diabetic gastropare sis. Essential hypertension 80918969 I10 Seems to be well compensate d [...] bid 08/08/17. Chronic ob structive pulmonary disease 91916054 J44.9 Needs f/u with pulm. Type 2 eliazar betes mellitus 57810172 E11.59 Discussed importance of tight glycemic control to minimize cardiovasc ular disease progressio n. Aortic aneurysm 00136435 I71.9 Stable. Aorta measures 4.3 cm on [...] healthy, low-fat, low-choles terol, diabetic diet, with volleyball coach consult. Optimize BP and cholestero l control., Obtain next chest CTA 11/23/2021. Obstructiv e sleep apnea syndrome 99543860 G47.33 On BiPAP. Continue. Followed by pulmonolog ist. She had titration study. Obesity 747845899 E66.9 20 lb. weight loss recommende d over the next 2 months. Hypothyroidism 47109451 E03.9 PCP now following. Had 08/2018: free T4 0.8 normal. Obtained normal TSH 12/2020. Coronary arteriosclerosis 04553070 I25.10 Mild CAD. Had catheteriz ation straight - procedure (PROC) 03/27/21: Mild CAD (mLAD 25% stenosis, ostial D1 50%). Normal left ventricula r function. Elevated left ventricula r end-diasto lic pressure. Not on ASA given mild CAD and need for Coumadin for afib. Needs to keep LDL less than 70, and HDL more than 40. Heart fail ure with normal ejection fraction 932883630 I50.33 Had catheteriz ation straight - procedure [...] doing. Obtain CMP, Mg, CBC, TSH, FLP. [id number] Fracno Lopes MD [facility] [address] [place] [address] 11/01/2021 11:17:11 11/01/2021 12:34:14 Dyspnea on exertion 77350942 R06.09 ALIVIA treatment and follow up Hyperlipidemia 76563854 E78.5 Needs to keep LDL less than [...] gm bid 11/01/21. Atypical chest pain 1025 86197 R07.89 Improved. Had catheteriz ation straight - [...] ASA in setting of warfarin. Essential hypertension 90772363 I10 Patient's blood pressure is somewhat well-contr olled on present medical therapy. Patient is tolerating , without difficulty , the current medication s. I have not made changes to the current regimen. Patient is advised to maintain a blood pressure diary. Patient was advised to eat a low-sodium [...] bid 08/08/17. Chronic ob structive pulmonary disease 52907429 J44.9 Needs f/u with pulm. Type 2 eliazar betdoug mellitus 27948016 E11.59 Discussed importance of tight glycemic control to minimize cardiovasc ular disease progressio n. Aortic aneurysm 88094938 I71.9 Stable. Aorta measures 4.3 cm on [...] healthy, low-fat, low-choles terol, diabetic diet, with volleyball coach consult. Optimize BP and cholestero l control., Obtain chest CTA 10/2021. Obstructiv e sleep apnea syndrome 15352705 G47.33 On BiPAP. Continue. Followed by pulmonolog ist. She had titration study. Obesity 589697365 E66.9 20 lb. weight loss recommende d over the next 2 months. Hypothyroidism 28972254 E03.9 PCP now following. Had 08/2018: free T4 0.8 normal. Obtained normal TSH 12/2020. Coronary arteriosclerosis 44354108 I25.10 Mild CAD. Had catheteriz ation straight - procedure (PROC) 03/27/21: Mild CAD (mLAD 25% stenosis, ostial D1 50%). Normal left ventricula r function. Elevated left ventricula r end-diasto lic pressure. Not on ASA given mild CAD and need for Coumadin for afib. Needs to keep LDL less than 70, and HDL more than 40. Heart fail ure with normal ejection fraction 113469692 I50.33 Had catheteriz ation straight - procedure [...] 08/30/21. Eat daily banana as is doing. 32[address] Franco Lopes MD [facility] [place] [address] 01/03/2022 15:43:25 01/03/2022 18:14:37 Dyspnea on exertion 93831920 R06.09 Increased. In setting of acute on [...] d over the next 2 months. Hyperlipidemia 60352467 E78.5 Needs to keep LDL less than [...] gm bid 11/01/21. Atypical chest pain 1025 41124 R07.89 Improved. Had catheteriz ation straight - [...] ASA in setting of warfarin. Essential hypertension 73638812 I10 Patient's blood pressure is not well-contr olled on present medical therapy. Patient is tolerating , without difficulty , the current medication s. I have made the following changes to the current regimen. Patient is advised to maintain a blood pressure diary. Patient was advised to eat a low-sodium [...] bid 08/08/17. Chronic ob structive pulmonary disease 25679571 J44.9 Needs f/u with pulm. Type 2 eliazar betes mellitus 33183218 E11.59 Discussed importance of tight glycemic control to minimize cardiovasc ular disease progressio n. Aortic aneurysm 89306502 I71.9 Stable. Aorta measures 4.3 cm on [...] healthy, low-fat, low-choles terol, diabetic diet, with volleyball coach consult. Optimize BP and cholestero l control., Obtain chest CTA 11/2022. Obstructiv e sleep apnea syndrome 73143255 G47.33 On BiPAP. Continue. Followed by pulmonolog ist. She had titration study. Obesity 789918344 E66.9 20 lb. weight loss recommende d over the next 2 months. Hypothyroidism 76578669 E03.9 PCP now following. Had 08/2018: free T4 0.8 normal. Obtained normal TSH 12/2020. Coronary arteriosclerosis 30433075 I25.10 Mild CAD. Had catheteriz ation straight - procedure (PROC) 03/27/21: Mild CAD (mLAD 25% stenosis, ostial D1 50%). Normal left ventricula r function. Elevated left ventricula r end-diasto lic pressure. Not on ASA given mild CAD and need for Coumadin for afib. Needs to keep LDL less than 70, and HDL more than 40. Heart fail ure with normal ejection fraction 686481640 I50.33 Had catheteriz ation straight - procedure [...] leg edema, obtain LE venous Doppler at [place]. Had 12/29/21: Cr 0.93, K 4.5, Mg 1.9 BMP, Mg 2 wks. Edema of l ower extremity 045485058 R60.0 For left posterior knee pain and leg edema, obtain LE venous Doppler at [place]. [id number] Franco Lopes MD [address] [place] [address] 02/14/2022 15:05:40 02/14/2022 16:42:24 Dyspnea on exertion 51781268 R06.09 Increased. In setting of acute on [...] d over the next 2 months. Hyperlipidemia 64365309 E78.5 Needs to keep LDL less than [...] gm bid 11/01/21. Atypical chest pain 1025 25466 R07.89 Improved. Had catheteriz ation straight - [...] ASA in setting of warfarin. Essential hypertension 02152093 I10 Patient's blood pressure is somewhat well-contr olled on present medical therapy. Patient is tolerating , without difficulty , the current medication s. I have made the following changes to the current regimen. Patient is advised to maintain a blood pressure diary. Patient was advised to eat a low-sodium [...] bid 08/08/17. Chronic ob structive pulmonary disease 27255230 J44.9 Needs f/u with pulm. Type 2 eliazar betes mellitus 41974513 E11.59 Discussed importance of tight glycemic control to minimize cardiovasc ular disease progressio n. Aortic aneurysm 58609787 I71.9 Stable. Aorta measures 4.0-4.3 cm on [...] healthy, low-fat, low-choles terol, diabetic diet, with volleyball coach consult. Optimize BP and cholestero l control., Obtain chest CTA 11/2022. Obstructiv e sleep apnea syndrome 45103263 G47.33 On BiPAP. Continue. Followed by pulmonolog ist. She had titration study. Obesity 386547133 E66.9 20 lb. weight loss recommende d over the next 2 months. Hypothyroidism 41908696 E03.9 PCP now following. Had 08/2018: free T4 0.8 normal. Obtained normal TSH 12/2020. Had 10/18/21: INR 2.3, HDL 42, TG 169, LDL 69, Cr 1.07, K 4.6, Mg 1.9, TSH 2.7, hgb 13.7 Coronary arteriosclerosis 88678689 I25.10 Mild CAD. Had catheteriz ation straight - procedure (PROC) 03/27/21: Mild CAD (mLAD 25% stenosis, ostial D1 50%). Normal left ventricula r function. Elevated left ventricula r end-diasto lic pressure. Not on ASA given mild CAD and need for Coumadin for afib. Needs to keep LDL less than 70, and HDL more than 40. Heart fail ure with normal ejection fraction 943332768 I50.33 Had catheteriz ation straight - procedure [...] qd 02/14/22. Edema of l ower extremity 557713100 R60.0 Increased L>R leg since mid-December 2021. Had 02/07/22 US, echocardio gram: LV chamber size is normal. There is normal global systolic function and contractil ity. The estimated left ventricle ejection fraction is 55-60% (normal). Had US, doppler, venous 01-19-2022 : Negative left-sided venous Doppler study. Increased from Lasix 20 mg qd to 40 mg qd 02/14/22. Obtain BMP, Mg 3 wks. 56539 Franco Lopes MD [address] [address] 07/18/2022 14:33:03 07/18/2022 16:16:03 Dyspnea on exertion 25051499 R06.09 Improved. In setting of acute on [...] d over the next 2 months.. Hyperlipidemia 94390853 E78.5 Needs to keep LDL less than [...] Mg, TSH, CBC. Atypical chest pain 1025 82477 R07.89 Improved. Had catheteriz ation straight - [...] ASA in setting of warfarin. Essential hypertension 31544267 I10 Patient's blood pressure is well-contr olled on present medical therapy. Patient is tolerating , without difficulty , the current medication s. I have made the following changes to the current regimen. Patient is advised to maintain a blood pressure diary. Patient was advised to eat a low-sodium [...] Needs repeat INR in 3 weeks per [facility], on Coumadin 2 mg alternate with 3 mg qHS. Began MgOxide 07/10/17 for Mg 1.1. On 08/08/17, Mg 1.2. Increased to magnesium oxide 400 mg bid 08/08/17. Chronic ob structive pulmonary disease 22667608 J44.9 Needs f/u with pulm. Type 2 eliazar betes mellitus 26820467 E11.59 Discussed importance of tight glycemic control to minimize cardiovasc ular disease progressio n. Aortic aneurysm 46521051 I71.9 Stable. Aorta measures 4.0-4.3 cm on [...] healthy, low-fat, low-choles terol, diabetic diet, with volleyball coach consult. Optimize BP and cholestero l control., Obtain chest CTA 11/2022. Obstructiv e sleep apnea syndrome 01212911 G47.33 On BiPAP. Continue. Followed by pulmonolog ist. She had titration study. Obesity 168405213 E66.9 20 lb. weight loss recommende d over the next 2 months. Hypothyroidism 22652395 E03.9 PCP now following. Had 08/2018: free T4 0.8 normal. Obtained normal TSH 12/2020. Had 10/18/21: INR 2.3, HDL 42, TG 169, LDL 69, Cr 1.07, K 4.6, Mg 1.9, TSH 2.7, hgb 13.7 Coronary arteriosclerosis 80133189 I25.10 Mild CAD. Had catheteriz ation straight - procedure (PROC) 03/27/21: Mild CAD (mLAD 25% stenosis, ostial D1 50%). Normal left ventricula r function. Elevated left ventricula r end-diasto lic pressure. Began ASA 81 mg qd 07/18/22. Needs to keep LDL less than 70, and HDL more than 40. Heart fail ure with normal ejection fraction 974714938 I50.33 Had catheteriz ation straight - procedure [...] qd 02/14/22. Edema of l ower extremity 506989386 R60.0 Improved. Had 02/07/22 US, echocardio gram: LV chamber size is normal. There is normal global systolic function and contractil ity. The estimated left ventricle ejection fraction is 55-60% (normal). Had US, doppler, venous 01-19-2022 : Negative left-sided venous Doppler study. Increased from Lasix 20 mg qd to 40 mg qd 02/14/22. Obtain FLP, CMP, Mg, TSH, CBC. [id number] Franco Lopes MD [address] [place] [address] 11/14/2022 13:57:15 11/14/2022 15:23:17 Dyspnea on exertion 17583765 R06.09 Improved. In setting of acute on [...] d over the next 2 months.. Hyperlipidemia 95568508 E78.5 Needs to keep LDL less than [...] Mg, TSH, CBC. Atypical chest pain 1025 37427 R07.89 Has focal tenderness noted left anterior [...] CTA chest given aortic aneurysm. Essential hypertension 90281438 I10 Patient's blood pressure is well-contr olled on present medical therapy. Patient is tolerating , without difficulty , the current medication s. I have not made changes to the current regimen. Patient is advised to maintain a blood pressure diary. Patient was advised to eat a low-sodium [...] Needs repeat INR in 3 weeks per [facility], on Coumadin 2 mg qHS. Began MgOxide 07/10/17 for Mg 1.1. On 08/08/17, Mg 1.2. Increased to magnesium oxide 400 mg bid 08/08/17. Chronic ob structive pulmonary disease 27346435 J44.9 Needs f/u with pulm. Type 2 eliazar betes mellitus 97546980 E11.59 Discussed importance of tight glycemic control to minimize cardiovasc ular disease progressio n. Aortic aneurysm 35776207 I71.9 Stable. Aorta measures 4.0-4.3 cm on [...] healthy, low-fat, low-choles terol, diabetic diet, with volleyball coach consult. Optimize BP and cholestero l control., Obtain chest CTA 11/2022. Obstructiv e sleep apnea syndrome 70791161 G47.33 On BiPAP. Continue. Followed by pulmonolog ist. She had titration study. Obesity 791645411 E66.9 20 lb. weight loss recommende d over the next 2 months. Hypothyroidism 70481232 E03.9 PCP now following. Had 08/2018: free T4 0.8 normal. Obtained normal TSH 12/2020. Had 10/18/21: INR 2.3, HDL 42, TG 169, LDL 69, Cr 1.07, K 4.6, Mg 1.9, TSH 2.7, hgb 13.7 Coronary arteriosclerosis 51777459 I25.10 Mild CAD. Had catheteriz ation straight - procedure (PROC) 03/27/21: Mild CAD (mLAD 25% stenosis, ostial D1 50%). Normal left ventricula r function. Elevated left ventricula r end-diasto lic pressure. Began ASA 81 mg qd 07/18/22. Needs to keep LDL less than 70, and HDL more than 40. Heart fail ure with normal ejection fraction 258481727 I50.33 Had catheteriz ation straight - procedure [...] qd 02/14/22. Edema of l ower extremity 302419612 R60.0 Improved. Had 02/07/22 US, echocardio gram: [...] Recorded Advance Directives Directive None Recorded Payers Insurance Date Sequence Insurance Name Policy Number Policy Herrmann Covered Member ID Herrmann Member ID Guarantor Name 11/08/2022 2 [place] [employer] [place] [employer] Carol Gee [id number] Carol Gee 11/11/2022 1 [place] Carol Gee [id number] Carol Gee 11/08/2022 2 [facility] - DOS ON OR AFTER 20 (MEDICAID REPLACEMENT - HMO) Carol Gee [id number] Carol Gee 11/08/2022 1 [facility] - DOS PRIOR TO 2020 (MEDICAID REPLACEMENT - HMO) Carol Gee [id number] Carol Gee 11/11/2022 2 [place] [employer]PARTMENT [place] Carol Gee [id number] Carol Gee 11/08/2022 1 [facility] - [facility] ON OR AFTER 12/29/20 (MEDICAID REPLACEMENT - HMO) Carol Gee [id number] Carol Gee Notes Date Note Type Note [...] measuring 9x 16 mm. She went to [facility] on 02/05/18 for a consultation with a surgeon to see about biopsy vs surgical removal of nodule. She had PFT testing 01/29/18. She had CT scan 03/12/2018 showed nodule stable. She had CT scan 05/2018 showed nodule resolved. She was at [facility] on 11/27/17 for elevated calcium levels (13.2). [...] and has it checked at lab per [facility]. She was in [facility] in 05/22/17 because of atrial fibrillation with [...] 08/28/21 - INR : 2.1(H)PT 19.8(H) PT/INR [id number] 1.7 H PT 17.2 H 03/27/21:Na 137,K [...] function. Elevated left ventricular end-diastolic pressure. Franco Lopes [place], [place] - [facility] 11/01/2021 12:27:41 01/03/2022 [...] measuring 9x 16 mm. She went to [facility] on 02/05/18 for a consultation with a surgeon to see about biopsy vs surgical removal of nodule. She had PFT testing 01/29/18. She had CT scan 03/12/2018 showed nodule stable. She had CT scan 05/2018 showed nodule resolved. She was at [facility] on 11/27/17 for elevated calcium levels (13.2). [...] and has it checked at lab per [facility]. She was in [facility] in 05/22/17 because of atrial fibrillation with [...] 08/28/21 - INR : 2.1(H)PT 19.8(H) PT/INR [id number] 1.7 H PT 17.2 H 03/27/21:Na 137,K [...] CO2 27, GLU 165, BUN 21, CR 1.145/02/16 FLP: TC 126, TR 192, HDL 35, [...] Elevated left ventricular end-diastolic pressure. Franco sinha [place] - [facility] 01/03/2022 18:05:38 02/14/2022 [...] measuring 9x 16 mm. She went to [facility] on 02/05/18 for a consultation with a surgeon to see about biopsy vs surgical removal of nodule. She had PFT testing 01/29/18. She had CT scan 03/12/2018 showed nodule stable. She had CT scan 05/2018 showed nodule resolved. She was at [facility] on 11/27/17 for elevated calcium levels (13.2). [...] and has it checked at lab per [facility]. She was in [facility] in 05/22/17 because of atrial fibrillation with [...] 08/28/21 - INR : 2.1(H)PT 19.8(H) PT/INR [id number] 1.7 H PT 17.2 H 03/27/21:Na 137,K [...] function. Elevated left ventricular end-diastolic pressure. Franco Lopes [place], [place] - [facility] 02/14/2022 16:38:38 [...] measuring 9x 16 mm. She went to [facility] on 02/05/18 for a consultation with a surgeon to see about biopsy vs surgical removal of nodule. She had PFT testing 01/29/18. She had CT scan 03/12/2018 showed nodule stable. She had CT scan 05/2018 showed nodule resolved. She was at [facility] on 11/27/17 for elevated calcium levels (13.2). [...] and has it checked at lab per [facility]. She was in [facility] in 05/22/17 because of atrial fibrillation with [...] the past: 07/06/22 PT/INR: INR 1.8, 17.7 2BMP-GL 182(H) BUN 20 CR 1.10(H) NA 138 K 4.5 CA 10.1 MAG 2.0 01/30/22 INR 2.0, PT 19.4 Had 12/29/21: Cr 0.93, K 4.5, Mg 1.9, Had 12/06/21: Cr 1.0 Had 10/18/21: INR 2.3, HDL 42, TG 169, LDL 69, Cr 1.07, K 4.6, Mg 1.9, TSH 2.7, hgb 13.7 08/28/21 - INR : 2.1(H)PT 19.8(H) PT/INR [id number] 1.7 H PT 17.2 H 03/27/21:Na 137,K [...] 18, CR 1.14, AST 15, ALT 10; 08/08/2017: NA:139, K:4.4, CL:101, GLU:243, BUN:19, CR:1.2, [...] fibrillation. Low voltage, chest leads US, echocardiogram [id number] chamber size is normal. There is normal [...] setting of atrial fibrillation. US, doppler, venous [id number] Duplex Negative left-sided venous Doppler study. US, [...] function. Elevated left ventricular end-diastolic pressure. Franco sinha, [place] - [facility] 07/18/2022 16:12:33 11/14/2022 [...] measuring 9x 16 mm. She went to [facility] on 02/05/18 for a consultation with a surgeon to see about biopsy vs surgical removal of nodule. She had PFT testing 01/29/18. She had CT scan 03/12/2018 showed nodule stable. She had CT scan 05/2018 showed nodule resolved. She was at [facility] on 11/27/17 for elevated calcium levels (13.2). [...] and has it checked at lab per [facility]. She was in [facility] in 05/22/17 because of atrial fibrillation with [...] 08/28/21 - INR : 2.1(H)PT 19.8(H) PT/INR [id number] 1.7 H PT 17.2 H 03/27/21:Na 137,K [...] fibrillation. Low voltage, chest leads US, echocardiogram [id number] chamber size is normal. There is normal [...] setting of atrial fibrillation. US, doppler, venous [id number] Duplex Negative left-sided venous Doppler study. US, [...] ventricular function. Elevated left ventricular end-diastolic pressure. LAURA Gómez - [facility] 11/14/2022 15:16:36 OBGyn Episode No OBEpisode recorded.
--- OUTSIDE RECORDS SUMMARY | 2025-03-26 12:31 | XMS_ITS | Clinical Summary ---
Author Organization [facility] Address [address] [place] [address] Care Team Providers Care Grails Web Application Developer Name Role Phone Unavailable Primary Care Provider [...] 1 - Tdap) 11/14/1975 Mammogram Screening 1996 Pneumococcal Vaccine: 50+ Ye ars (1 of 1 - PCV) 2006 Zoster Vaccines (1 of 2) 2006 Dexa Scan (General) 2021 COVID-19 Vaccine (1 - 2023-2 5 season) 2025 RSV Immunization or 60+ Years (1 - [...]
--- OUTSIDE RECORDS SUMMARY | 2025-03-26 12:31 | XMS_ITS | Clinical Summary ---
Author Organization [facility] Address [address] [place] [address] Care Team Providers Care Telephone Messenger Name Role Phone Lane Ring MD Primary [...] daily as needed . 7 Active Insulin [place], Disposable, (NOVOFINE 32) 32 gauge x 1/4 [...] 10:09 AM CDT Height 172.7 cm (5' 8) 02/05/2018 10:09 AM CDT Body Mass Index [...] 2016 OSTEOPOROSIS SCREENING 2021 INFLUENZA VACCINE (#1) 2025 Insurance [facility] MEDICAID Care Teams Telephone Messenger Relationship Specialty Start Date End Date Lane Ring MD [address] [place] [address] PCP - General Internal Medicine 12/17/17
--- OUTSIDE RECORDS SUMMARY | 2025-03-26 12:32 | XMS_ITS | Patient Health Record ---
Author Organization [facility] Address [address] [place] [address] Care Team Providers Care Nursing Program Director Name Role Phone Fannie Campuzano Primary Care Provider [phone] Allergies Allergen (clinical drug ingredient) Drug/Non Drug [...] Duration) Notes Start Date End Date Status Lexapro 20 MG 1 tablet Orally Once a day; Duration: 30 days Active Lexapro 10 MG 1 tablet Orally Once a day; Duration: 30 days Active SEROquel 25 MG 1 tablet in morning Orally Once a day; Duration: 30 days Active Eliquis Active SEROquel 300 MG 0.5 tablet at bedtim e Orally Once a day; Duration: 30 days Active Levothyroxine Sodium 150 MCG 1 tablet in the morning on an empty stomach Orally Once a day; Duration: 30 day(s) Active RisperDAL 1 MG 1 tablet Orally twic e a day; Duration: 30 days Active Pravastatin Sodium 40 MG 1 tablet Orally Once a day; Duration: 30 day(s) Active Magnesium Bisglycinate 100 MG 2 tablets (400mg) Orally twice a day Active dilTIAZem HCl ER Beads 120 MG 1 capsule Orally Once a day; Duration: 30 day(s) Active busPIRone HCl 15 MG 1 tablet Orally 3 times a day; Duration: 30 days Active Warfarin Sodium 2 MG 1 tablet Orally Onc e a day; Duration: 30 days Active Metoprolol Succinate 25 MG 1/2 capsule Orally Once a day Active Admelog 100 UNIT/ML as directed Subcutaneous 9-15 units 3 times a day Active Lisinopril 5 MG 1 tablet Orally Once a day; Duration: 30 day(s) Active Cosentyx 300 Dose 1 monthly No t-Taking Basaglar KwikPen 100 UNIT/ML as directed Subcutaneous 62 units twice a day Active metFORMIN HCl 500 MG 1 tablet [...] W/U Status Risk Notes Problem Schizoaffective disorder (86309779) Schizoaffective disorder (F25.9) Active confirmed Vital Signs Height 67 inches in 02/23/2025 Encounters Encounter Location Date Provider Diagnosis [address] [address] 05/19/2024 Arif Habib Schizoaffective diso rder F25.[address] [address] 07/21/2024 Arif Habib Schizoaffective diso rder F25.[address] [address] 09/01/2024 Arif Habib Schizoaffective diso rder F25.[address] [address] 11/24/2024 Arif Habib Schizoaffective diso rder F25.[address] [address] 12/25/2024 Arif Habib Schizoaffective diso rder F25.[address] [place] [address] 02/23/2025 Arif Habib Schizoaffective diso rder F25.[address] [place] [address] 03/27/2024 Arif Habib Schizoaffective diso rder F25.[address] [place] [address] 05/20/2024 Arif Habib Schizoaffective diso rder F25.[address] [place] [address] 07/14/2024 Arif Habib [address] [address] 07/27/2024 Arif Habib Schizoaffective diso rder F25.[address] [place] [address] 11/17/2024 Arif Habib Schizoaffective diso rder F25.[address] [place] [address] 11/17/2024 Arif Habib Assessments Encounter Date Diagnosis (ICD Code) Assessment Notes Treatment Notes Treatment Clinical Notes Section Notes 03/27/2024 Schizoaffective disorder (ICD-10 - F25.9) 05/19/2024 Schizoaffective disorder (ICD-10 - F25.9) risk & benefits discussed. Continue current treatment. No involuntary movements reported. Continue current medicications. 05/20/2024 Schizoaffective disorder (ICD-10 - F25.9) 07/21/2024 Schizoaffective disorder (ICD-10 - F25.9) risk & benefits discussed. Restart her Seroquel. Risperdal and Buspar half of the doses. Side effec ts discussed. Supportive treatment provided. 07/27/2024 Schizoaffective disorder (ICD-10 - F25.9) 09/01/2024 Schizoaffective disorder (ICD-10 - F25.9) Continue current treatment. Side effects discussed. Supportive treatment provided. 11/17/2024 Schizoaffective disorder (ICD-10 - F25.9) 11/24/2024 Schizoaffective disorder (ICD-10 - F25.9) Continue current treatment. Side effects discussed. Supportive treatment provided.Her Buspar was increased to 15 mg TID last week. Continue current treatment. 12/25/2024 Schizoaffective disorder (ICD-10 - F25.9) Continue current treatment. Side effects discussed. Supportive treatment provided.Her Continue current treatment. 02/23/2025 Schizoaffective disorder (ICD-10 - F25.9) Continue current treatment. Side effects discussed. Supportive treatment provided.Her Continue current treatment. Plan Of Treatment No Information Insurance Providers Payer Name Payer Address Payer Phone Subscriber Number Group Number Insured Name Patient Relationship to Insured Coverage Start Date Coverage End Date MEDICARE PART A [address] [place] [address] [id number] Carol Gee Self - patient is the insured 2 [facility] Attn Claims Department [address] [place] [address] [id number] Carol Gee Self - patient is the insured 3 Medical (General) History Medical History History ICD Code Hyperlipidemia Diabetes Surgical History Surgery Date(Month/Year) bunion surgery 1992 total hysterectomy 1996 hernia surgery 05/2000 gallbladder Hospitalization History Reason Date(Month/Year) consitpation 2022 UTI 2022 Gallbladder Hernia Surgery 05/2000 Total Hysterectomy 1996
--- OUTSIDE RECORDS SUMMARY | 2025-03-26 12:32 | XMS_ITS | Patient Health Record ---
Author Organization [facility] Address [address] [place] [address] [phone] Care Team Providers Care Sales Management Trainee Name Role Phone BONIFACIO CONWAY Primary Care Provider [phone] CuateNatyly Unavailable [phone] Babita Mauro Unavailable [phone] Allergies Allergen (clinical drug ingredient) Drug/Non Drug Allergy documented on EMR Reaction Allergy Type Onset Date Status all khoi drugs (uncoded) Unknown Allergy Active Medicinal quinolone and acting as antibacterial agent (FN) quinalones (uncoded) Unknown Allergy Active Erythrocin Unknown Drug Allergy Active Medicinal cephalosporin and acting as antibacterial agent (FN) Cephalosporins Unknown Drug Allergy Active ciprofloxacin Ciprofloxacin Unknown Drug Allergy Active citalopram Citalopram Unknown Drug Allergy Activ e codeine Codeine Unknown Drug Allergy Active levofloxacin Levofloxacin Unknown Drug Allergy A ctive lidocaine Lidocaine Unknown Drug Allergy Active Macrolides and Ketolides Unknown Drug Allergy Active Substance with sulfonamide structure and antibacterial mechanism of action (substance) Sulfa Antibiotics Unknown Drug Allergy Active theophylline Theophylline Unknown Drug Allergy A ctive Results Component Value Reference Range Notes Vitamin D, 25-Hydroxy Reviewed date:09/11/2024 01:40:32 PM Interpretation: Performing Lab: Notes/Report: Gentamicin Trough, Serum Reviewed date:10/23/2024 10:55:56 AM Interpretation: Performing Lab: Notes/Report: Gentamicin Peak, Serum Reviewed date:10/22/2024 09:49:59 AM Interpretation: Performing Lab: Notes/Report: Comp. Metabolic Panel (14) Reviewed date:10/20/2024 03:53:24 PM Interpretation: Performing Lab: Notes/Report: Urine Culture and Sensitivit y Reviewed date:10/16/2024 03:13:51 PM Interpretation: Performing Lab: Notes/Report: Reason For Referral No Information Medications Medication SIG (Take, Route, Frequency, Duration) Notes Start Date End Date Status Glucose 40 % Gel as directed Orally three times a day As needed Active Levothyroxine Sodium 150 MCG Tablet 1 tablet in the morning on an empty stomach Orally Once a day Active Magnesium Oxide 400 MG Tablet 2 tablets Orally Once a day Active Metoprolol Succinate ER 25 MG Tablet Extended Release 24 Hour 1 tablet Orally Once a day Active Dulcolax 10 MG Suppository 1 suppository as needed Rectal 3 times a day 1 qhs prn Active Eliquis 5 MG Tablet 1 tablet Orally twic e a day Active Glucagon Emergency 1 MG Kit as directed Injection As needed Active Acetaminophen 325 MG Tablet 2 tablet Ora lly twice daily Active Aspirin 81 MG Tablet Delayed Release 1 tablet Orally Once a day Active dilTIAZem HCl 120 MG Capsule Extended Release 24 Hour 1 capsule Orally Once a day Active Docusate Sodium 100 MG Capsule 1 capsule as needed Orally Once a day Active Lantus 100 UNIT/ML Solution 12 units Sub cutaneous once daily Active Insulin Aspart 100 UNIT/ML Solution Pen-injector 4 units Subcutaneous three times daily Active Benzonatate 200 MG Capsule 1 capsule as needed Orally Three times a day Active risperiDONE 1 MG Tablet 1 tablet Orally Once a day Active Vitamin D3 10 MCG (400 UNIT) Tablet 5 tablets Orally Once a day Active busPIRone HCl 15 MG Tablet 1 tablet Oral ly 3 times a day Active Meclizine HCl 25 MG Tablet 1 tablet twic e a day Orally 02/05/2025 Active NovoLOG 100 UNIT/ML Solution as directed Injection nightly per sliding scale 201 - 250 = 1 units, 251 - 300 = 2 units, 301 - 350 = 2 units, 351 - 400 = 3 units, >400 call Active traMADol HCl 50 MG Tablet 1 tablet as ne eded Orally every 6 hours 02/11/2025 Active Lexapro 20 MG Tablet 1 tablet Orally Onc e a day Active MiraLax 17 GM/SCOOP Powder 1 scoop mixed with 8 ounces of fluid Orally Once a day Active Ondansetron 4 MG Tablet Disintegrating 1 tablet on the tongue and allow to dissolve Orally every 8 hrs As needed Active QUEtiapine Fumarate 150 MG Tablet 1 tablet at bedtime Orally once a day Active Methenamine Hippurate 1 GM Tablet 1 tablet Orally Twice a day Active Social History Tobacco Use: Social History Observation Description Date Details (start date - stop date) Never Smoker NA - NA Social History Tobacco Use: Social Info Question Answer Notes Tobacco Control (Standard) Tobacco use: Nonsmoker Tobacco use other than smoking: Are you an other tobac co user? 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 Problem Psoriasis (8038811) Other psoriasis (L40.8) Active confirmed Problem Spinal stenosis (28098958) Spinal stenosis, site unspecified (M48.00) Active confirmed Problem Hydronephrosis with renal and ureteral calculous obstruction (N13.2) Active confirmed Problem Abnormal gait (03987758) Unsteadiness on feet (R26.81) Active confirmed Problem Abnormal gait (01529286) Other abnormalities of gait and mobility (R26.89) Active confirmed Problem Lack of coordination (499090912) Other lack of coordination (R27.8) Active confirmed Problem Long-term current use of insulin (377972989) alf (current) use of insulin (Z79.4) Active confirmed Problem Chronic atrial fibrillation (disorder) (477473431) Chronic atrial fibrillation, unspecified (I48.20) Active confirmed Problem Chronic kidney disease stage 3A (disorder) (088953957) Chronic kidney disease, stage 3a (N18.31) Active confirmed Problem Aneurysm of ascending aorta (disorder) (648965367) Aneurysm of the ascending aorta, without rupture (I71.21) Active confirmed Problem COPD - Chronic obstructive pulmonary disease (07887846) Chronic obstructive pulmonary disease, unspecified COPD type (J44.9) Active confirmed Problem Hypothyroidism (76698392) Hypothyroidism, unspecified type (E03.9) Active confirmed Problem Constipation (03674791) Constipation, unspecified constipation type (K59.00) Active confirmed Problem Atrial fibrillation (47301666) Atrial fibrillation, unspecified type (I48.91) Active confirmed Problem Chronic kidney disease stage 3A (disorder) (679586926) Stage 3a chronic kidney disease (CKD) (N18.31) Active confirmed Problem Psoriasis (1969321) Psoriasis (L40.9) Active confirmed Vital Signs Heart Rate 63 /min 01/15/2025 Temperature 98.2 degrees Fahrenheit 01/15/2025 Respiratory Rate 18 /min 01/15/2025 Height-cm 172.72 cm 01/15/2025 Oximetry 98 % 01/15/2025 Blood pressure diastolic 74 mm Hg 01/15/2025 Weight-kg 93.89 kg 01/15/2025 Height 68 in 01/15/2025 Blood pressure systolic 128 mm Hg 01/15/2025 Weight 207 lbs 01/15/2025 BMI 31.47 kg/m2 01/15/2025 Encounters Encounter Location Date Provider Diagnosis [place] [id number] 05/05/2024 Pastora Cuello Atrial fibrillation, unspecified type I48.91 ; Stage 3a chronic kidney disease (CKD) N18.31 ; Psoriasis L40.9 ; Hypothyroidism, unspecified type E03.9 ; Chronic obstructive pulmonary disease, unspecified COPD type J44.9 ; Constipation, unspecified constipation type K59.00 and Urinary urgency R39.[address] [address] 06/04/2024 Pastora Cuello Atrial fibrillation, unspecified type I48.91 ; Stage 3a chronic kidney disease (CKD) N18.31 ; Psoriasis L40.9 ; Hypothyroidism, unspecified type E03.9 ; Chronic obstructive pulmonary disease, unspecified COPD type J44.9 ; Constipation, unspecified constipation type K59.00 ; UTI symptoms R39.9 ; Type 2 diabetes mellitus without complications E11.9 and long term (current) use of insulin Z79.[address] [address] 07/02/2024 BONIFACIO CONWAY Chronic kidney disease, stage 3a N18.31 and Constipation, unspecified constipation type K59.[address] [address] 07/16/2024 Pastora Cuello Hydronephrosis with renal and ureteral calculous obstruction N13.2 ; Severe sepsis without septic shock R65.20 and Type 2 diabetes mellitus without complications E11.[address] [address] 07/30/2024 Pastora Cuello Atrial fibrillation, unspecified type I48.91 ; Physical deconditioning R53.81 ; Stage 3a chronic kidney disease (CKD) N18.31 ; Psoriasis L40.9 ; Hypothyroidism, unspecified type E03.9 ; Chronic obstructive pulmonary disease, unspecified COPD type J44.9 and Type 2 diabetes mellitus without complications E11.[address] [address] 08/04/2024 Pastora Cuello Atrial fibrillation, unspecified type I48.91 ; Physical deconditioning R53.81 ; Stage 3a chronic kidney disease (CKD) N18.31 ; Psoriasis L40.9 ; Hypothyroidism, unspecified type E03.9 ; Chronic obstructive pulmonary disease, unspecified COPD type J44.9 ; Type 2 diabetes mellitus without complications E11.9 and Dizzy spells R42 [address] [address] 08/11/2024 Pastora Cuello Atrial fibrillation, unspecified type I48.91 ; Physical deconditioning R53.81 ; Stage 3a chronic kidney disease (CKD) N18.31 ; Psoriasis L40.9 ; Hypothyroidism, unspecified type E03.9 ; Chronic obstructive pulmonary disease, unspecified COPD type J44.9 ; Type 2 diabetes mellitus without complications E11.9 and Dizzy spells R42 [place] [id number] 08/21/2024 Pastora Cuello Atrial fibrillation, unspecified type I48.91 ; Physical deconditioning R53.81 ; Stage 3a chronic kidney disease (CKD) N18.31 ; Psoriasis L40.9 ; Hypothyroidism, unspecified type E03.9 ; Chronic obstructive pulmonary disease, unspecified COPD type J44.9 ; Type 2 diabetes mellitus without complications E11.9 and Dizzy spells R42 [place] [address] 08/27/2024 Pastora Cuello Flu J11.1 ; UTI (urinary tract infection), uncomplicated N39.0 ; COVID U07.1 ; Atrial fibrillation, unspecified type I48.91 ; Physical deconditioning R53.81 ; Stage 3a chronic kidney disease (CKD) N18.31 ; Psoriasis L40.9 ; Hypothyroidism, unspecified type E03.9 ; Chronic obstructive pulmonary disease, unspecified COPD type J44.9 and Type 2 diabetes mellitus without complications E11.9 [place] [id number] 09/04/2024 BONIFACIO CONWAY Chronic kidney disease, stage 3a N18.31 and Constipation, unspecified constipation type K59.00 [place] [address] 10/02/2024 Pastora Cuate Atrial fibrillation, unspecified type I48.91 ; Stage 3a chronic kidney disease (CKD) N18.31 ; Psoriasis L40.9 ; Hypothyroidism, unspecified type E03.9 ; Chronic obstructive pulmonary disease, unspecified COPD type J44.9 ; Type 2 diabetes mellitus without complications E11.9 and UTI symptoms R39.9 [place] [id number] 11/06/2024 BONIFACIO CONWAY [address] [address] 12/03/2024 Pastorarosaura Cuello Atrial fibrillation, unspecified type I48.91 ; Stage 3a chronic kidney disease (CKD) N18.31 ; Psoriasis L40.9 ; Hypothyroidism, unspecified type E03.9 ; Chronic obstructive pulmonary disease, unspecified COPD type J44.9 and Type 2 diabetes mellitus without complications E11.[address] [address] 01/15/2025 BONIFACIO CONWAY [address] [address] 02/04/2025 Pastorarosaura Cuello Atrial fibrillation, unspecified type I48.91 ; Stage 3a chronic kidney disease (CKD) N18.31 ; Psoriasis L40.9 ; Hypothyroidism, unspecified type E03.9 ; Chronic obstructive pulmonary disease, unspecified COPD type J44.9 ; Type 2 diabetes mellitus without complications E11.9 and Dizziness R42 [address] [address] 03/05/2025 [facility] [place] [id number] 04/29/2024 [place] [address] [place] [address] 05/11/2024 BONIFACIO CONWAY [place] [address] [place] [address] 07/19/2024 [place] [address] [place] [address] 07/20/2024 [facility] [address] [place] [phone] 07/21/2024 BONIFACIO CONWAY [facility] [place] [address] [place] [address] 07/23/2024 Pastora [place] [address] [place] [address] 08/21/2024 Pastora [place] [address] [place] [address] 08/23/2024 BONIFACIO CONWAY [place] [address] [place] [address] 09/04/2024 BONIFACIO CONWAY [place] [address] [place] [address] 09/29/2024 Pastora [place] [address] [place] [address] 10/17/2024 BONIFACIO CONWAY [place] [address] [place] [address] 11/05/2024 [place] [address] [place] [address] 11/05/2024 [place] [address] [place] [address] 11/18/2024 BONIFACIO CONWAY [place] [address] [place] [address] 12/02/2024 [place] [address] [place] [address] 12/11/2024 Babita Mauro [place] [address] [place] [address] 01/01/2025 BONIFACIO CONWAY [place] [address] [place] [address] 01/15/2025 BONIFACIO CONWAY [place] [address] [place] [address] 01/19/2025 BONIFACIO CONWAY [place] [address] [address] 02/04/2025 BONIFACIO CONWAY [facility] [address] [address] 02/11/2025 Pastora Cuello [facility] [address] [address] 03/05/2025 BONIFACIO CONWAY Assessments Encounter Date Diagnosis (ICD Code) Assessment Notes Treatment Notes Treatment Clinical Notes Section Notes 10/02/2024 Atrial fibrillation, unspecified type (ICD-10 - I48.91) Hx of. Rate is controlled. Managed well with current medications. Continue current treatment plan and monitor. 10/02/2024 Stage 3a chronic kidney disease (CKD) (ICD-10 - N18.31) Hx of according to H&P. CMP on 07/15/24- GFR 70- Stage 2. Will continue to monitor. Avoid nephrotoxic drugs when possible. 02/04/2025 Atrial fibrillation, unspecified type (ICD-10 - I48.91) Hx of. Rate is controlled. Managed well with current medications. Continue current treatment plan and monitor. 02/04/2025 Stage 3a chronic kidney disease (CKD) (ICD-10 - N18.31) Hx of according to H&P. CMP on 07/15/24- GFR 70- Stage 2. Will continue to monitor. Avoid nephrotoxic drugs when possible. 12/03/2024 Atrial fibrillation, unspecified type (ICD-10 - I48.91) Hx of. Rate is controlled. Managed well with current medications. Continue current treatment plan and monitor. 12/03/2024 Stage 3a chronic kidney disease (CKD) (ICD-10 - N18.31) Hx of according to H&P. CMP on 07/15/24- GFR 70- Stage 2. Will continue to monitor. Avoid nephrotoxic drugs when possible. 09/04/2024 Chronic kidney disease, stage 3a (ICD-10 - N18.31) 08/27/2024 UTI (urinary tract infection), uncomplicated (ICD-10 - N39.0) She was seen in the ED on 08/23/24 and was dx with Influenza A, COVID, mild CHF, and UTI. She was discharged on Tamiflu x 5days, Tessalon pearls, and Macrobid x7 days. 08/27/2024 Flu (ICD-10 - J11.1) She was seen in the ED on 2/23/25 and was dx with Influenza A, COVID, mild CHF, and UTI. She was discharged on Tamiflu x 5days, Tessalon pearls, and Macrobid x7 days. 08/21/2024 Atrial fibrillation, unspecified type (ICD-10 - I48.91) Hx of. Rate is controlled. Managed well with current medications. Continue current treatment plan and monitor. 08/11/2024 Atrial fibrillation, unspecified type (ICD-10 - I48.91) Hx of. Rate is controlled. Managed well with current medications. Continue current treatment plan and monitor. 08/04/2024 Atrial fibrillation, unspecified type (ICD-10 - I48.91) Hx of. Rate is controlled. Managed well with current medications. Continue current treatment plan and monitor. 07/30/2024 Physical deconditioning (ICD-10 - R53.81) Patient is working with PT/OT for strengthening and mobility. Reports therapy is going well. Utilizes a wheelchair for ambulation. 07/30/2024 Atrial fibrillation, unspecified type (ICD-10 - I48.91) Hx of. Rate is controlled. Managed well with current medications. Continue current treatment plan and monitor. 07/16/2024 Hydronephrosis with renal and ureteral calculous obstruction (ICD-10 - N13.2) She was admitted from 07/05-07/14 for kidney stone, sepsis, hydronephrosis due to obstruction of ureter. While in the ED found to have A-fib with RVR and was given IV diltiazem, UA positive- given Zosyn, CT of chest/abdomen/pelv is showed 9mm left renal stone, had an urgent cystoscopy with sent placement on 07/05/24. She was discharged on Augmentin 875/125mg BID x 5days. They also changed her diabetic medications around. 07/16/2024 Severe sepsis without septic shock (ICD-10 - R65.20) She was admitted from 07/05-07/14 for kidney stone, sepsis, hydronephrosis due to obstruction of ureter. While in the ED found to have A-fib with RVR and was given IV diltiazem, UA positive- given Zosyn, CT of chest/abdomen/pelv is showed 9mm left renal stone, had an urgent cystoscopy with sent placement on 07/05/24. She was discharged on Augmentin 875/125mg BID x 5days. They also changed her diabetic medications around. 07/02/2024 Chronic kidney disease, stage 3a (ICD-10 - N18.31) 06/04/2024 Atrial fibrillation, unspecified type (ICD-10 - I48.91) Hx of. Rate is controlled. Managed well with current medications. Continue current treatment plan and monitor. 06/04/2024 Stage 3a chronic kidney disease (CKD) (ICD-10 - N18.31) Hx of according to H&P. CMP on 04/06/24- GFR 62- Stage 2. Will continue to monitor. Avoid nephrotoxic drugs when possible. 05/05/2024 Atrial fibrillation, unspecified type (ICD-10 - I48.91) Hx of. Rate is controlled. Managed well with current medications. Continue current treatment plan and monitor. 05/05/2024 Stage 3a chronic kidney disease (CKD) (ICD-10 - N18.31) Hx of according to H&P. CMP on 04/06/24- GFR 62- Stage 2. Will continue to monitor. Avoid nephrotoxic drugs when possible. 05/05/2024 Psoriasis (ICD-10 - L40.9) Light pink slightly raised rash to BUE noted. Denies it bothering her and does not want any medication at this time. 06/04/2024 Psoriasis (ICD-10 - L40.9) Light pink slightly raised rash to BUE noted. Denies it bothering her and does not want any medication at this time. 07/16/2024 Type 2 diabetes mellitus without complications (ICD-10 - E11.9) Her diabetic medications were changed, her Triseba was discontinued. Started on Insulin Aspart 4 units TID with meals, SSI with 1-3 units at bedtime, SSI with 3-6 units TID with meals, and Lantus 12 units at bedtime. Send BS log in 2 weeks fro review. 07/02/2024 Constipation, unspecified constipation type (ICD-10 - K59.00) 07/30/2024 Stage 3a chronic kidney disease (CKD) (ICD-10 - N18.31) Hx of according to H&P. CMP on 04/06/24- GFR 62- Stage 2. Will continue to monitor. Avoid nephrotoxic drugs when possible. 08/04/2024 Stage 3a chronic kidney disease (CKD) (ICD-10 - N18.31) Hx of according to H&P. CMP on 07/15/24- GFR 70- Stage 2. Will continue to monitor. Avoid nephrotoxic drugs when possible. 08/04/2024 Physical deconditioning (ICD-10 - R53.81) Patient is working with PT/OT for strengthening and mobility. Reports therapy is going well. Utilizes a wheelchair for ambulation. 08/11/2024 Physical deconditioning (ICD-10 - R53.81) Patient is working with PT/OT for strengthening and mobility. Reports therapy is going well. Utilizes a wheelchair for ambulation. 08/21/2024 Physical deconditioning (ICD-10 - R53.81) Patient is working with PT/OT for strengthening and mobility. Reports therapy is going well. Utilizes a wheelchair for ambulation. 08/27/2024 COVID (ICD-10 - U07.1) She was seen in the ED on 08/23/24 and was dx with Influenza A, COVID, mild CHF, and UTI. She was discharged on Tamiflu x 5days, Tessalon pearls, and Macrobid x7 days. Utilizing O2 at 3L at this time. Denies any breathing issues. 09/04/2024 Constipation, unspecified constipation type (ICD-10 - K59.00) 12/03/2024 Psoriasis (ICD-10 - L40.9) Light pink slightly raised rash to BUE noted. Denies it bothering her and does not want any medication at this time. 02/04/2025 Psoriasis (ICD-10 - L40.9) Light pink slightly raised rash to BUE noted. Denies it bothering her and does not want any medication at this time. 10/02/2024 Psoriasis (ICD-10 - L40.9) Light pink slightly raised rash to BUE noted. Denies it bothering her and does not want any medication at this time. 10/02/2024 Hypothyroidism, unspecified type (ICD-10 - E03.9) 07/15/24- TSH- WNL Managed well with current medications. Continue current treatment plan and monitor. 02/04/2025 Hypothyroidism, unspecified type (ICD-10 - E03.9) 07/15/24- TSH- WNL Managed well with current medications. Continue current treatment plan and monitor. 12/03/2024 Hypothyroidism, unspecified type (ICD-10 - E03.9) 07/15/24- TSH- WNL Managed well with current medications. Continue current treatment plan and monitor. 08/27/2024 Atrial fibrillation, unspecified type (ICD-10 - I48.91) Hx of. Rate is controlled. Managed well with current medications. Continue current treatment plan and monitor. 08/21/2024 Stage 3a chronic kidney disease (CKD) (ICD-10 - N18.31) Hx of according to H&P. CMP on 07/15/24- GFR 70- Stage 2. Will continue to monitor. Avoid nephrotoxic drugs when possible. 08/11/2024 Stage 3a chronic kidney disease (CKD) (ICD-10 - N18.31) Hx of according to H&P. CMP on 07/15/24- GFR 70- Stage 2. Will continue to monitor. Avoid nephrotoxic drugs when possible. 08/04/2024 Psoriasis (ICD-10 - L40.9) Light pink slightly raised rash to BUE noted. Denies it bothering her and does not want any medication at this time. 07/30/2024 Psoriasis (ICD-10 - L40.9) Light pink slightly raised rash to BUE noted. Denies it bothering her and does not want any medication at this time. 06/04/2024 Hypothyroidism, unspecified type (ICD-10 - E03.9) 05/06/24- TSH- WNL Managed well with current medications. Continue current treatment plan and monitor. 05/05/2024 Hypothyroidism, unspecified type (ICD-10 - E03.9) No TSH on file. Please draw TSH with reflex on next lab day. 05/05/2024 Chronic obstructive pulmonary disease, unspecified COPD type (ICD-10 - J44.9) Denies any issues at this time. Managed well with current medications. Continue current treatment plan and monitor. 06/04/2024 Chronic obstructive pulmonary disease, unspecified COPD type (ICD-10 - J44.9) Denies any issues at this time. Managed well with current medications. Continue current treatment plan and monitor. 07/30/2024 Hypothyroidism, unspecified type (ICD-10 - E03.9) 05/06/24- TSH- WNL Managed well with current medications. Continue current treatment plan and monitor. 08/11/2024 Psoriasis (ICD-10 - L40.9) Light pink slightly raised rash to BUE noted. Denies it bothering her and does not want any medication at this time. 08/04/2024 Hypothyroidism, unspecified type (ICD-10 - E03.9) 07/15/24- TSH- WNL Managed well with current medications. Continue current treatment plan and monitor. 08/21/2024 Psoriasis (ICD-10 - L40.9) Light pink slightly raised rash to BUE noted. Denies it bothering her and does not want any medication at this time. 08/27/2024 Physical deconditioning (ICD-10 - R53.81) Patient is working with PT/OT for strengthening and mobility. Reports therapy is going well. Utilizes a wheelchair for ambulation. 02/04/2025 Chronic obstructive pulmonary disease, unspecified COPD type (ICD-10 - J44.9) Denies any issues at this time. Managed well with current medications. Continue current treatment plan and monitor. 12/03/2024 Chronic obstructive pulmonary disease, unspecified COPD type (ICD-10 - J44.9) Denies any issues at this time. Managed well with current medications. Continue current treatment plan and monitor. 10/02/2024 Chronic obstructive pulmonary disease, unspecified COPD type (ICD-10 - J44.9) Denies any issues at this time. Managed well with current medications. Continue current treatment plan and monitor. 10/02/2024 Type 2 diabetes mellitus without complications (ICD-10 - E11.9) 07/15/24- A1C 6.8%. Which as elevated since March. Continue with new orders from the hospital and go from there. A1C due in September. 02/04/2025 Type 2 diabetes mellitus without complications (ICD-10 - E11.9) 07/15/24- A1C 6.8%. Which as elevated since March. A1c was not drawn in September per order. New order given today to draw A1c on next lab day. 12/03/2024 Type 2 diabetes mellitus without complications (ICD-10 - E11.9) 07/15/24- A1C 6.8%. Which as elevated since March. Continue with new orders from the hospital and go from there. A1C was not drawn in September. Will have A1C ordered. 08/27/2024 Stage 3a chronic kidney disease (CKD) (ICD-10 - N18.31) Hx of according to H&P. CMP on 07/15/24- GFR 70- Stage 2. Will continue to monitor. Avoid nephrotoxic drugs when possible. 08/21/2024 Hypothyroidism, unspecified type (ICD-10 - E03.9) 07/15/24- TSH- WNL Managed well with current medications. Continue current treatment plan and monitor. 08/11/2024 Hypothyroidism, unspecified type (ICD-10 - E03.9) 07/15/24- TSH- WNL Managed well with current medications. Continue current treatment plan and monitor. 08/04/2024 Chronic obstructive pulmonary disease, unspecified COPD type (ICD-10 - J44.9) Denies any issues at this time. Managed well with current medications. Continue current treatment plan and monitor. 07/30/2024 Chronic obstructive pulmonary disease, unspecified COPD type (ICD-10 - J44.9) Denies any issues at this time. Managed well with current medications. Continue current treatment plan and monitor. 06/04/2024 Constipation, unspecified constipation type (ICD-10 - K59.00) Did not report any complaints or issues about constipation today. 05/05/2024 Constipation, unspecified constipation type (ICD-10 - K59.00) Reports that she is having constipation. She has PRN medications on file. Staff notified that patient is requesting something for constipation. 05/05/2024 Urinary urgency (ICD-10 - R39.15) Patient reports she thinks she has a UTI. She reports having urgency and pressure. Please obtain UA C&S. 06/04/2024 UTI symptoms (ICD-10 - R39.9) Patient thinks she has a UTI again. She reports that her urine is dark. due to just receiving antibiotics less than one month ago Instructed staff to monitor urine and if any color change or odor noted to obtain UA C&S. 07/30/2024 Type 2 diabetes mellitus without complications (ICD-10 - E11.9) 04/07/24- A1C 5.5%. Patient reports that she's been having high blood sugars recently. Please send two weeks of blood sugar logs for review. 08/04/2024 Type 2 diabetes mellitus without complications (ICD-10 - E11.9) 07/15/24- A1C 6.8%. Which as elevated since March. Continue with new orders from the hospital and go from there. A1C due in September. 08/11/2024 Chronic obstructive pulmonary disease, unspecified COPD type (ICD-10 - J44.9) Denies any issues at this time. Managed well with current medications. Continue current treatment plan and monitor. 08/21/2024 Chronic obstructive pulmonary disease, unspecified COPD type (ICD-10 - J44.9) Denies any issues at this time. Managed well with current medications. Continue current treatment plan and monitor. 08/27/2024 Psoriasis (ICD-10 - L40.9) Light pink slightly raised rash to BUE noted. Denies it bothering her and does not want any medication at this time. 02/04/2025 Dizziness (ICD-10 - R42) Patient has been having dizziness when she stands. They have done orthostatic blood pressures but does not seem to be the concerned. Order given today for meclizine 25 mg b.i.d. as-needed for dizziness. 10/02/2024 UTI symptoms (ICD-10 - R39.9) C/O pressure in the bladder area and frequency. Obtain UA C+S. 08/21/2024 Type 2 diabetes mellitus without complications (ICD-10 - E11.9) 07/15/24- A1C 6.8%. Which as elevated since March. Continue with new orders from the hospital and go from there. A1C due in September. 08/27/2024 Hypothyroidism, unspecified type (ICD-10 - E03.9) 07/15/24- TSH- WNL Managed well with current medications. Continue current treatment plan and monitor. 08/11/2024 Type 2 diabetes mellitus without complications (ICD-10 - E11.9) 07/15/24- A1C 6.8%. Which as elevated since March. Continue with new orders from the hospital and go from there. A1C due in September. 08/04/2024 Dizzy spells (ICD-10 - R42) C/O having dizzy spells, mostly when going from laying to sitting position. Order given to do orthostatic BPs daily x1 week. Send report for review. 06/04/2024 Type 2 diabetes mellitus without complications (ICD-10 - E11.9) 04/07/24- A1C 5.5%. Patient reports that she's been having high blood sugars recently. Please send two weeks of blood sugar logs for review. 06/04/2024 long term (current) use of insulin (ICD-10 - Z79.4) 08/21/2024 Dizzy spells (ICD-10 - R42) Reports that she is still having dizzy spells, but they do not seem as bad. Continue to monitor. 08/11/2024 Dizzy spells (ICD-10 - R42) C/O having dizzy spells, mostly when going from laying to sitting position. Order given to do orthostatic BPs daily x1 week. Send report for review.- No BP report was sent last week, order given to send report. 08/27/2024 Chronic obstructive pulmonary disease, unspecified COPD type (ICD-10 - J44.9) Denies any issues at this time. Managed well with current medications. Continue current treatment plan and monitor. 08/27/2024 Type 2 diabetes mellitus without complications (ICD-10 - E11.9) 07/15/24- A1C 6.8%. Which as elevated since March. Continue with new orders from the hospital and go from there. A1C due in September. 05/05/2024 Other Continue curren t treatment plan.Staff to continue to monitor and report any changes.Patient education provided and questions/concerns addressed.Follow up in one month unless necessary sooner. 06/04/2024 Other Continue curren t treatment plan.Staff to continue to monitor and report any changes.Patient education provided and questions/concerns addressed.Follow up in one month unless necessary sooner. 07/16/2024 Other Continue curren t treatment plan.Staff to continue to monitor and report any changes.Patient education provided and questions/concerns addressed.Follow up in one month unless necessary sooner. 08/04/2024 Other Continue curren t treatment plan.Staff to continue to monitor and report any changes.Patient education provided and questions/concerns addressed.Follow up in one month unless necessary sooner. Please refer to facility EHR for current and accurate medication list and treatments. 08/11/2024 Other Continue curren t treatment plan.Staff to continue to monitor and report any changes.Patient education provided and questions/concerns addressed.Follow up in one month unless necessary sooner. Please refer to facility EHR for current and accurate medication list and treatments. 08/21/2024 Other Continue curren t treatment plan.Staff to continue to monitor and report any changes.Patient education provided and questions/concerns addressed.Follow up in one month unless necessary sooner. Please refer to facility EHR for current and accurate medication list and treatments. 08/27/2024 Other Continue curren t treatment plan.Staff to continue to monitor and report any changes.Patient education provided and questions/concerns addressed.Follow up in one month unless necessary sooner.Please refer to facility EHR for current and accurate medication list and treatments. 07/30/2024 Other Continue curren t treatment plan.Staff to continue to monitor and report any changes.Patient education provided and questions/concerns addressed.Follow up in one month unless necessary sooner. Please refer to facility EHR for current and accurate medication list and treatments. 10/02/2024 Other Continue curren t treatment plan.Staff to continue to monitor and report any changes.Patient education provided and questions/concerns addressed.Follow up in one month unless necessary sooner.Please refer to facility EHR for current and accurate medication list and treatments.Reviewe d HIPAA Right to Privacy Practices with patient/family/car egiver. 12/03/2024 Other Continue current treatment plan. Staff to continue to monitor and report any changes. Patient education provided and questions/concerns addressed. Follow up in 2-4 weeks unless necessary sooner. Reviewed HIPAA Right to Privacy Practices with patient/family/car egiver. 02/04/2025 Other Continue current treatment plan. Staff to continue to monitor and report any changes. Patient education provided and questions/concerns addressed. Follow up in 2-4 weeks unless necessary sooner. Draw CBC, BMP, and vitamin D level on next lab day. Plan Of Treatment Pending Test Test Name Order Date CBC With Differential/Platelet Basic Metabolic Panel (8) 02/18/2025 Future Test Test Name Order Date Hemoglobin A1c 02/05/2025 Vitamin D, 25-Hydroxy 02/05/2025 Basic Metabolic Panel (8) 02/05/2025 CBC 02/05/2025 Insurance Providers Payer Name Payer Address Payer Phone Subscriber Number Group Number Insured Name Patient Relationship to Insured Coverage Start Date Coverage End Date [employer] of [place] [address] KATHRYN MCNEAL [id number] Carol Gee Self - patient is the insured [place] of [place] [address] [address] [place], [place] [id number] Carol Gee Self - patient is the insured Medical (General) History Medical History History ICD Code Dehydration E86.0 Chronic kidney disease, stage 3a N18.31 Chronic atrial fibrillation, unspecified I48.20 Muscle weakness (generalized) M62.81 Other abnormalities of gait and mobility R26.89 Chronic obstructive pulmonary disease, u nspecified J44.9 Unspecified cirrhosis of liver K74.60 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
--- OUTSIDE RECORDS SUMMARY | 2025-03-26 12:32 | XMS_ITS | Encounter Summary ---
Author Organization [facility] Address [address] [place] [address] Care Team Providers Care Emissions Testing And Repair Technician Name Role Phone John Gomez DO Primary Care Provider [phone] Reason for Visit * Reason Onset Date Comments MEDICATION REFILL 07/20/2022 Encounter Details Date Type Department Care Team (Late st Contact Info) Description 07/20/2022 Refill [facility] [address] [place] [address], [place] [id number] Pastora Roy PA [address] [place] [address] [address] [place] [address] MEDICATION REFILL Social History Tobacco Use Types Packs/Day Years Used Date Smoking Tobacco: Never Smokeless Tobacco: Never Alcohol Use Standard Drinks/Week Comments No 0 (1 standard drink = 0.6 oz pur e alcohol) Comments No Sex and Gender Information Value Date Recorded Sex Assigned at Not on file 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
--- OUTSIDE RECORDS SUMMARY | 2025-03-26 12:32 | XMS_ITS | Clinical Summary ---
Author Organization [facility] Address [address] [place] [address] Care Team Providers Care Precision Jig Grinder Name Role Phone PatriciaWilder andradee Cassia RODRIGUEZ Primary Care Provider [phone] Source Comments [facility],non-owned Affiliates and Associated Physician Practices is amultiple site organization consisting of ambulatory clinics and hospital sitesin [place], [place], [place] and [place]. This disclosure is being madepursuant to the Care Everywhere program and may not contain all information available regarding this patient. Last updated 18.[facility] Allergies Active Allergy Reactions Criticality Noted [...] PRN (Nausea). 15 tablet 0 7 Active Vitamins/[place] als TABS 1 (one) tablet DAILY 7 Active escitalopram (LEXAPRO) 20 MG tablet Take 1 (one) tablet by mouth DAILY 7 Active Magnesium Aspartate 65 MG Take 64 mg by mouth BID 7 Active Calcium 500-125 MG-UNIT Take 1 tablet by mouth DAILY. 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 Gender Identity Not on file Sexual Orientation [...] 11:09 AM CDT Height 170.2 cm (5' 7) 10/25/2021 11:0 9 AM CDT Body Mass [...] CREATININE 06/19/20232021, 05/31/2021, 03/27/2021, Additional history exists DEPRESSION SCREENING 07/01/2024 DIABETES - URINE PROTEIN SCREENING 07/01/2024 COVID-19 VACCINE ( season) 2025 INFLUENZA VACCINE (#1) 2025 HEPATITIS C SCREENING Completed 03/04/2020, 017 [...] COMPREHENSIVE METABOLIC PANEL Routine 06/19/2022 3:03 PM BEATER LEAD 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 HEPATITIS C AB W/RFLX TO HCV RNA QN PCR 03/04/2020 9:54 AM CDT from Last 3 Months or Most Recently Relevant to Health Maintenance Results * (ABNORMAL) COMPREHENSIVE METABOLIC PANEL (06/19/2022 3:03 PM BEATER LEAD) Glucose 102(H) 65 - 99 mg/dL [facility] [...] 29 U/L [facility] Comment: Test Performed at: [facility] [address] [place] [address] ISABELLA RODRIGUEZ DO,MPH Blood BLOOD SPECIMEN / Unknown 06/19/2022 3:03 PM BEATER LEAD 06/19/2022 3:03 PM BEATER LEAD us Past[facility] SALDIVAR LAB - CHEMISTRY ORDERABLES F inal Result Performing Organization Address [facility] Co de Phone Number [employer] [address] [place] [address] * HEPATITIS C AB W/RFLX TO HCV RNA QN PCR (03/04/2020 9:54 AM CDT) Hepatitis C Antibody NON-REACTI VE NON-REACT [facility] Signal to Cut-Off 0.03 <1.00 [facility] Comment: HCV antibody was non-reactive. There is no laboratory evidence of HCV infection. In most cases, no further action is required. However, if recent HCV exposure is suspected, a test for HCV RNA (test code 27802) is suggested. For additional information please refer to http://education.[employer]/faq/GIX78u3 (This link is being provided for informational/ educational purposes only.) Test Performed at: [facility] [address] [address] [address] ISABELLA RODRIGUEZ DO,MPH 03/04/2020 9:54 AM CDT 03/04/2020 9:59 AM CDT Stephy Fitzpatrick MD LAB - CHEMISTRY ORDERABLES Fi nal Result Performing Organization Address [facility] Co de Phone Number [facility] [address] [place] [address] from Last 3 Months or Most Recently Relevant to Health Maintenance Insurance MEDICARE MEDICAID - OUT OF STATE Care Teams Precision Jig Grinder Relationship Specialty Start Date End Date John Gomez DO [address] [place] [address] PCP - General 04/11/21
[2025-03-26 13:59] LABS: Estimated Glomerular Filt Rate 41
== END 2025-03-26 12:28 | disposition home or self-care (01) ==
PROVIDERS: PCP Internal Medicine
DX: I77.810 Thoracic aortic ectasia (principal); K59.00 Constipation, unspecified
CPT/HCPCS: 71275; 74177; Q9967